=== PATIENT | female | born 1975 | race Caucasian/White ===

== ENCOUNTER 2018-06-08 21:48 | Inpatient (IN) | payer MEDICAID, OTHER ==
[~2018-06-08] VITALS: Ht 152.4 cm; Wt 57.3 kg
[~2018-06-08 21:48] MED LIST: ACET-818; IBUP-725
[2018-06-08 22:37] VITALS: Ht 152.4 cm; Wt 57.3 kg
[2018-06-08] MEDS ORDERED: CEFTRIAXONE 1 GM/50 ML (PMX) 50 ML IVPB STA (22:41)
[2018-06-08] MEDS ORDERED: SODIUM CHLORIDE 0.9% 1L BAG IV* STA (22:41)
[2018-06-08] MEDS ORDERED: ACETAMINOPHEN 325 MG TAB PO STA (22:41)
[2018-06-08] MEDS ORDERED: D10/0.45% NACL + KCL 30 MEQ 1,000 ML IV SCH (23:52)
[2018-06-08] MEDS ORDERED: D10/0.45% NACL + KCL 40 MEQ 1,000 ML IV SCH (23:52)
[2018-06-08] MEDS ORDERED: SOD CHLORIDE 0.9% 1,000 ML IV SCH (23:52)
[2018-06-08] MEDS ORDERED: DEXTROSE 10 %/0.45 % NACL 1,000 ML IV SCH (23:52)
[2018-06-08] MEDS ORDERED: NS + KCL 40 MEQ 1,000 ML IV SCH (23:52)
[2018-06-08] MEDS ORDERED: NS + KCL 30 MEQ 1,000 ML IV SCH (23:52)
[2018-06-09] MEDS ORDERED: LACTATED RINGER'S 500 ML IV ONE
[2018-06-09] MEDS ORDERED: INSULIN REGULAR, HUMAN 100 UNIT in SOD CHLORIDE 0.9% 100 ML IV SCH ×2
[2018-06-09] MEDS ORDERED: AZITHROMYCIN 500MG/NS (PMX) 250 ML IVPB ONE
--- NOTE | 2018-06-09 00:02 | ERD ---
ER Documentation Chief Complaint Chief Complaint C/O SOB, AP, BODY ACHES AND FEVER X3 DAYS HPI Patient is a 42-year-old female with asthma and diabetes who presents saying "I am all jacked up". The patient has left-sided flank pain and chills and fever. It started 3 days ago. Patient has no treatment yet. She has body wide aches and cough with productive phlegm. She has no urinary symptoms. She did not get a flu shot this year. She does not have a primary doctor. Upon review of old medical records this is the patient's third visit to the ER since 2011. ROS All systems reviewed and are negative except as per history of present illness. Medications Home Meds Reported Medications Ibuprofen (Motrin) 400 Mg Tablet 04/24/11 Acetaminophen-Codeine* (Tylenol No.3*) 1 Tab Tablet 04/24/11 Allergies Allergies: Coded Allergies: No Known Allergy (Unverified , 04/24/11) PMhx/Soc History of Surgery: Yes ( X 4) Anesthesia Reaction: No Hx Neurological Disorder: No Hx Respiratory Disorders: No Hx Cardiac Disorders: No Hx Psychiatric Problems: No Hx Miscellaneous Medical Probl: No Hx Alcohol Use: No Hx Substance Use: No Hx Tobacco Use: No Smoking Status: Never smoker FmHx Family History: diabetes Physical Exam Vitals Vital Signs Date Temp Pulse Resp B/P (MAP) Pulse Ox O2 O2 Flow FiO2 Time Delivery Rate 06/08/18 100.1 23:05 06/08/18 Nasal 22:43 Cannula 06/08/18 100.7 126 24 134/90 92 22:37 (105) Physical Exam Const: Moderate distress Head: Atraumatic Eyes: Normal Conjunctiva ENT: Poor dentition and dry mucous membranes Neck: Full range of motion. No meningismus. Resp: Decreased breath sounds bilaterally Cardio: Regular rate and rhythm, no murmurs Abd: Soft, non tender, non distended. Normal bowel sounds Skin: No petechiae or rashes Back: No midline or flank tenderness Ext: No cyanosis, or edema Neur: Awake and alert Psych: Normal Mood and Affect Result Diagram: 06/08/18225506/08/182255 Results 24 hrs Laboratory Tests Test 06/08/18 22:56 06/08/18 23:10 White Blood Count 14.9 10^3/ul Red Blood Count 4.99 10^6/ul Hemoglobin 13.6 g/dl Hematocrit 42.7 % Mean Corpuscular Volume 85.6 fl Mean Corpuscular Hemoglobin 27.3 pg Mean Corpuscular Hemoglobin Concent 31.9 g/dl Red Cell Distribution Width 14.7 % Platelet Count 204 10^3/UL Mean Platelet Volume 12.4 fl Immature Granulocytes % 0.400 % Neutrophils % % Segmented Neutrophils % (Manual) 71 % Band Neutrophils % (Manual) 21 % Lymphocytes % % Lymphocytes % (Manual) 4 % Reactive Lymphocytes % (Manual) 2 % Monocytes % % Monocytes % (Manual) 2 % Eosinophils % % Basophils % % Nucleated Red Blood Cells % 0.0 /100WBC Immature Granulocytes # 0.060 10^3/ul Neutrophils # 10^3/ul Neutrophils # (Manual) 11.0 10^3/ul Band Neutrophils # 3.1 10^3/ul Lymphocytes (Manual) 0.5 10^3/ul Lymphocytes # 10^3/ul Reactive Lymphocytes # 0.2 10^3/ul Monocytes # 10^3/ul Monocytes # (Manual) 0.2 10^3/ul Eosinophils # 10^3/ul Basophils # 10^3/ul Nucleated Red Blood Cells # 10^3/ul Platelet Estimate NORMAL Giant Platelets 2 % Prothrombin Time 16.3 Sec Prothrombin Time Ratio 1.3 INR International Normalized Ratio 1.30 Activated Partial Thromboplast Time 30.4 Sec Sodium Level 132 mmol/L Potassium Level 4.3 mmol/L Chloride Level 91 mmol/L Carbon Dioxide Level 18 mmol/L Anion Gap 23 Blood Urea Nitrogen 10 mg/dl Creatinine 0.53 mg/dl Est Glomerular Filtrat Rate mL/min > 60 mL/min Glucose Level 522 mg/dl Calcium Level 9.5 mg/dl Total Bilirubin 0.7 mg/dl Direct Bilirubin 0.00 mg/dl Indirect Bilirubin 0.7 mg/dl Aspartate Amino Transf (AST/SGOT) 16 IU/L Alanine Aminotransferase (ALT/SGPT) < 6 IU/L Alkaline Phosphatase 158 IU/L Troponin I < 0.012 ng/ml Total Protein 8.0 g/dl Albumin 3.9 g/dl Globulin 4.10 g/dl Albumin/Globulin Ratio 0.95 Urine Color YELLOW Urine Clarity SLIGHTLY CLOUDY Urine pH 6.0 Urine Specific [place] 1.019 Urine Ketones 1+ mg/dL Urine Nitrite NEGATIVE mg/dL Urine Bilirubin NEGATIVE mg/dL Urine Urobilinogen 1+ mg/dL Urine Leukocyte Esterase NEGATIVE Juan C/ul Urine Microscopic RBC 0 /HPF Urine Microscopic WBC 3 /HPF Urine Squamous Epithelial Cells MODERATE /HPF Urine Bacteria FEW /HPF Urine Hemoglobin NEGATIVE mg/dL Urine Glucose 2+ mg/dL Urine Total Protein NEGATIVE mg/dl Current Medications Medications Dose Sig/Yoselin Start Time Status Last (Trade) Ordered Route PRN Stop Time Admin Dose Reason Admin Sodium 1,510 ml BOLUS OVER 2 06/08/18 DC 06/08/18 Chloride HOURS STAT 22:41 23:06 (NS) IV* 06/08/18 22:42 650 mg ONCE STAT 06/08/18 DC 06/08/18 Acetaminophen PO 22:41 23:05 (Tylenol 06/08/18 22:42 Tab) Ceftriaxone 50 ml @ ONCE STAT 06/08/18 DC 06/08/18 Sodium 100 mls/hr IVPB 22:41 23:04 06/08/18 23:10 Azithromycin 250 ml @ ONCE ONCE 06/09/18 250 mls/hr IVPB 00:00 06/09/18 00:59 Potassium 1,000 ml @ Q0M IV 06/08/18 Chloride/Sodi 0 mls/hr 23:52 um Chloride Potassium 1,000 ml @ Q0M IV 06/08/18 Chloride/Dext 0 mls/hr 23:52 fernie/ Sod Cl Potassium 1,000 ml @ Q0M IV 06/08/18 Chloride/Sodi 0 mls/hr 23:52 um Chloride Potassium 1,000 ml @ Q0M IV 06/08/18 Chloride/Dext 0 mls/hr 23:52 fernie/ Sod Cl Sodium 1,000 ml @ Q0M IV 06/08/18 Chloride 0 mls/hr 23:52 1,000 ml @ Q0M IV 06/08/18 Dextrose/Sodi 0 mls/hr 23:52 um Chloride Insulin 101 ml @ ER DKA 06/09/18 Human 5.08 mls/hr PROTOCOL IV 00:00 Regular 100 unit/ Sodium Chloride Lactated 500 ml @ ONCE ONCE 06/09/18 Ringer's 500 mls/hr IV 00:00 06/09/18 00:59 HYPOGLYCEM 06/09/18 Miscellaneous HYPOGLYCEMIA PROTOCOL PRN 00:00 TREATMENT XX Information .HYPOGLYCEMIA (* PROTOCOL Miscellaneous Pharmacy Order) Dextrose 50 ml Q15M PRN 06/09/18 (D50w IV 00:00 Syringe) .DECREASED GLUCOSE Dextrose 25 ml Q15M PRN 06/09/18 (D50w IV 00:00 Syringe) .DECREASED GLUCOSE Procedures/MDM Chest X-ray 1V Interpreted by me: Soft Tissue: No acute abnormalities Bones: No acute abnormalities Mediastinum/Cardiac Silhouette/Lungs: Left upper lobe pneumonia EKG read by me: Rate/Rhythm: Sinus tachycardia rate of 117 Intervals: Normal Impression: Tachycardia without ischemia Smoking Cessation Therapy: Pt. was lectured for greater than 3 minutes on the health risks of continued smoking and the benefits of cessation. Sepsis Documentation: Patient's infectious symptoms have not stabilized and the patient is at risk of rapid decompensation. The patient will be admitted for careful hydration, antibiotic therapy, and infectious source control. SEVERE SEPSIS CRITERIA: Infectious source: Pneumonia End organ damage indicated by: Hyperglycemia with DKA SEPSIS MANAGEMENT Time of recognition of sepsis: 2255. Time of recognition of severe sepsis: 2255 Time of recognition of septic shock: No septic shock at this time. 3 HOUR BUNDLE Blood cultures x 2 before broad-spectrum antibiotics: Yes 30 ml/kg NS bolus completed Initial lactate pending Repeat lactate pending SEPTIC SHOCK ASSESSMENT: No lactic acid > 4.0 No persistent hypotension (SBP < 90 or 40 mmHg drop, MAP < 65) despite 30 mL/kg IV fluid bolus VOLUME REASSESSMENT FOR SEPTIC SHOCK: No septic shock at this time PERSISTENT HYPOTENSION TREATMENT: Comfort care no Central line not Required Vasopressor started not required I considered further perfusion assessment with CVP measurement, SCVO2, bedside ultrasound volume assessment, passive leg raise, trial of further fluid bolus. And proceeded with 30 ml/kg fluid bolus of NSS, broad spectrum antibiotics, and admission. The patient was found to have diabetic ketoacidosis with a sugar of 522 and a bicarb of 18 with an elevated anion gap of 23. The patient was fluid resuscitated with normal saline and was started on the DKA protocol. The patient will be admitted to the ICU to the care of Dr. Jackson. CRITICAL CARE Critical care time 45 minutes Emergent fluid management while maintaining close respiratory support. Provision of immediate and broad-spectrum antibiotic therapy. Simultaneous assessment for possible sources in order to direct targeted therapy. Consideration for invasive and chemical support to prevent cardiopulmonary collapse. Critical care time is independent of procedures performed. Departure Diagnosis: Primary Impression: Severe sepsis Additional Impressions: DKA (diabetic ketoacidoses) Diabetes mellitus type: type 1 Diabetes mellitus complication detail: without coma Qualified Codes: E10.10 - Type 1 diabetes mellitus with ketoacidosis without coma Pneumonia Pneumonia type: due to unspecified organism Laterality: left Lung location: upper lobe of lung Qualified Codes: J18.1 - Lobar pneumonia, unspecified organism Condition: Critical CORBIN DAY MD Jun 09, 2018 00:02
[2018-06-09] MEDS ORDERED: BISACODYL (EC) 5 MG TAB PO PRN (00:30)
[2018-06-09] MEDS ORDERED: ALBUTEROL 0.083% (NEB) 2.5 MG/3 ML AMP NEB PRN (00:30)
[2018-06-09] MEDS ORDERED: DOCUSATE SODIUM 100 MG CAP PO PRN (00:30)
[2018-06-09] MEDS: HYDROCODONE/APAP (5/325) TAB PO PRN ×3 (01:46→21:31)
[2018-06-09] MEDS: PANTOPRAZOLE (EC) 40 MG TAB PO SCH (05:50)
[2018-06-09] MEDS: HEPARIN 5,000 UNIT/1 ML VIAL SC SCH ×3 (05:50→21:34)
--- NOTE | 2018-06-09 06:15 | HP ---
Date/Time of Note Date/Time of Note DATE: 06/09/18 TIME: 06:06 Assessment/Plan VTE Prophylaxis SCD applied (from Nsg): Yes Pharmacological prophylaxis: NA/contraindicated Pharm contraindication: low risk/ambulating Lines/Catheters IV Catheter Type (from Nrsg): Peripheral IV Assessment/Plan Hospital Course This is a 42-year-old female being admitted to the ICU floor for: #1 DKA: Initiate DKA protocol with insulin drip, serial BMPs ABGs and CBCs. Monitor electrolytes. Potassium protocol. We will check hemoglobin A1c. Consider endocrinology consultation. #2 Severe sepsis: Secondary to underlying pneumonia and likely contributing factor to her TKA. Ceftriaxone and azithromycin at the current time. Cultures have been drawn. Trend lactic acid levels. Fluids as per #1. #3 community-acquired pneumonia: Ceftriaxone and azithromycin at the current time. Await culture results #4 Poorly controlled diabetes mellitus: Patient did present with blood sugars in the 500s. Will check a hemoglobin A1c once the DKA has been resolved we will need to optimize patient's home medication regimen. #5 asthma: PRN nebulizers as needed #6 homelessness: Social work consult #7 DVT GI prophylaxis: SCDs, Protonix Further treatment strategy will be implemented as per the clinical course Greater than 35 minutes critical care time was spent on the care and management this patient. Result Diagram: 06/09/18 0415 06/09/18 0508 Results 24hrs Laboratory Tests Test 06/08/18 22:56 06/08/18 23:10 06/08/18 23:35 06/08/18 23:47 White Blood 14.9 H Count Red Blood Count 4.99 Hemoglobin 13.6 Hematocrit 42.7 Mean Corpuscular 85.6 Volume Mean Corpuscular 27.3 L Hemoglobin Mean Corpuscular 31.9 L Hemoglobin Bia nt Red Cell 14.7 H Distribution Width Platelet Count 204 Mean Platelet 12.4 H Volume Immature 0.400 Granulocytes % Neutrophils % Segmented 71 Neutrophils % (Manual) Band Neutrophils 21 H % (Manual) Lymphocytes % Lymphocytes % 4 L (Manual) Reactive 2 H Lymphocytes % (Manual) Monocytes % Monocytes % 2 (Manual) Eosinophils % Basophils % Nucleated Red 0.0 Blood Cells % Immature 0.060 H Granulocytes # Neutrophils # Neutrophils # 11.0 H (Manual) Band Neutrophils 3.1 H # Lymphocytes 0.5 L (Manual) Lymphocytes # Reactive 0.2 H Lymphocytes # Monocytes # Monocytes # 0.2 L (Manual) Eosinophils # Basophils # Nucleated Red Blood Cells # Platelet NORMAL Estimate Giant Platelets 2 H Prothrombin Time 16.3 H Prothrombin Time 1.3 Ratio INR 1.30 International Normalized Ratio Activated 30.4 Partial Thrombop last Time Sodium Level 132 L Potassium Level 4.3 Chloride Level 91 L Carbon Dioxide 18 L Level Anion Gap 23 H Blood Urea 10 Nitrogen Creatinine 0.53 Est Glomerular > 60 Filtrat Rate mL/min Glucose Level 522 *H Calcium Level 9.5 Total Bilirubin 0.7 Direct Bilirubin 0.00 Indirect 0.7 Bilirubin Aspartate Amino 16 Transf (AST/SGOT ) Alanine < 6 L Aminotransferase (ALT/SGPT) Alkaline 158 H Phosphatase Troponin I < 0.012 Total Protein 8.0 Albumin 3.9 Globulin 4.10 H Albumin/Globulin 0.95 Ratio Urine Color YELLOW Urine Clarity CLEAR Urine pH 5.0 Urine Specific 1.028 [place] Urine Ketones 2+ H Urine Nitrite NEGATIVE Urine Bilirubin NEGATIVE Urine NEGATIVE Urobilinogen Urine Leukocyte NEGATIVE Esterase Urine 0 Microscopic RBC Urine 0 Microscopic WBC Urine Squamous FEW Epithelial Cells Urine Bacteria FEW A Urine Hemoglobin 1+ H Urine Glucose 3+ H Urine Total NEGATIVE Protein Lactic Acid 3.1 *H Level Blood Gas Blood venous Specimen Source Arterial Blood 06/09/2018 12:25 Date Drawn :25 AM Arterial Blood VENOUS LINE Gas Puncture Site Jerald Test ACCEPTAB Venous Blood pH 7.297 L Venous Blood 36.5 pCO2 (Temp Corrected) Venous Blood pO2 32.8 H (Temp Corrected) Venous Blood 17.4 L HCO3 Venous Blood 55.2 Oxygen Saturation Venous Blood -8.3 L Base Excess Venous Blood 12.0 Total Hemoglobin Venous Blood 54.9 Oxyhemoglobin Venous Blood 0.2 Methemoglobin Carboxyhemoglobi 0.4 n Blood Gas 37.0 Temperature Blood Gas NASAL CANNULA Modality FiO2 27.0 Blood Gas UP Notified Whom Blood Gas 06/09/2018 12:33 Notified Time :36 AM Test 06/09/18 00:53 06/09/18 01:07 06/09/18 01:10 06/09/18 01:52 Lactic Acid 2.0 Level Bedside Glucose 459 *H Sodium Level 133 L Potassium Level 4.0 Chloride Level 102 # Carbon Dioxide 17 L Level Anion Gap 14 #H Blood Urea 8 Nitrogen Creatinine 0.45 Est Glomerular > 60 Filtrat Rate mL/min Glucose Level 435 *H Hemoglobin A1c 13.2 H Calcium Level 8.3 L Phosphorus Level 2.6 Magnesium Level 1.7 Blood Gas Blood venous Specimen Source Arterial Blood 06/09/2018 2:10: Date Drawn 40 AM Arterial Blood VENOUS LINE Gas Puncture Site Jerald Test N/A Venous Blood pH 7.277 L Venous Blood 40.9 pCO2 (Temp Corrected) Venous Blood pO2 26.7 (Temp Corrected) Venous Blood 18.7 L HCO3 Venous Blood 41.4 L Oxygen Saturation Venous Blood -7.7 L Base Excess Venous Blood 12.4 Total Hemoglobin Venous Blood 41.2 Oxyhemoglobin Venous Blood 0.5 Methemoglobin Carboxyhemoglobi 0.1 n Blood Gas 37.0 Temperature Blood Gas NASAL CANNULA Modality FiO2 33.0 Blood Gas MA Notified Whom Blood Gas 06/09/2018 2:21: Notified Time 27 AM Test 06/09/18 02:14 06/09/18 02:48 06/09/18 03:10 06/09/18 03:11 Bedside Glucose 399 H 280 H Lactic Acid 2.3 *H Level Sodium Level 136 Potassium Level 3.9 Chloride Level 105 Carbon Dioxide 20 L Level Anion Gap 11 Blood Urea 8 Nitrogen Creatinine 0.47 Est Glomerular > 60 Filtrat Rate mL/min Glucose Level 298 #H Calcium Level 8.6 Phosphorus Level 1.9 L Magnesium Level 1.8 Test 06/09/18 03:52 06/09/18 04:10 06/09/18 04:15 06/09/18 05:08 Blood Gas Blood venous Specimen Source Arterial Blood 06/09/2018 3:25: Date Drawn 09 AM Arterial Blood VENOUS LINE Gas Puncture Site Jerald Test N/A Venous Blood pH 7.265 L Venous Blood 45.8 H pCO2 (Temp Corrected) Venous Blood pO2 18.9 L (Temp Corrected) Venous Blood 20.3 L HCO3 Venous Blood 24.7 L Oxygen Saturation Venous Blood -6.5 L Base Excess Venous Blood 11.6 Total Hemoglobin Venous Blood 24.2 Oxyhemoglobin Venous Blood 1.9 Methemoglobin Carboxyhemoglobi 0.3 n Blood Gas 37.0 Temperature Blood Gas NASAL CANNULA Modality FiO2 27.0 Blood Gas Notified Whom Blood Gas 06/09/2018 3:35: Notified Time 15 AM Bedside Glucose 275 H White Blood 11.6 #H Count Red Blood Count 4.21 Hemoglobin 11.5 L Hematocrit 35.8 L Mean Corpuscular 85.0 Volume Mean Corpuscular 27.3 L Hemoglobin Mean Corpuscular 32.1 Hemoglobin Bia nt Red Cell 14.6 H Distribution Width Platelet Count 185 Mean Platelet 11.9 H Volume Immature 0.300 Granulocytes % Neutrophils % Segmented 51 Neutrophils % (Manual) Band Neutrophils 28 H % (Manual) Lymphocytes % Lymphocytes % 16 (Manual) Monocytes % Monocytes % 5 (Manual) Eosinophils % Basophils % Nucleated Red 0.0 Blood Cells % Immature 0.030 Granulocytes # Neutrophils # Neutrophils # 6.3 (Manual) Band Neutrophils 3.2 H # Lymphocytes 1.8 (Manual) Lymphocytes # Monocytes # Monocytes # 0.5 (Manual) Eosinophils # Basophils # Nucleated Red Blood Cells # Platelet NORMAL Estimate Giant Platelets 1 H Polychromasia 2+ Poikilocytosis 2+ Anisocytosis 1+ Hemoglobin A1c 13.2 H Sodium Level 135 Potassium Level 3.6 Chloride Level 104 Carbon Dioxide 21 Level Anion Gap 10 Blood Urea 6 L Nitrogen Creatinine 0.38 L Est Glomerular > 60 Filtrat Rate mL/min Glucose Level 290 H Calcium Level 8.5 Test 06/09/18 05:12 Bedside Glucose 284 H HPI/ROS Admit Date/Time Admit Date/Time Hx of Present Illness Chief complaint: Generalized body pain and left flank pain and fever times 3 days This is a 42-year-old female with asthma and diabetes who presented to the emergency department with reports of body aches and cough times 3 days. Patient reports that she started experiencing body aches and cough along with a fever and chills for 3 days. She also had episodes of diarrhea. She reports she had productive phlegm as well. She was not able to get the flu shot this year. She is homeless. She is only on metformin at the current time for her diabetes. Allergies: NKDA Medications: Metformin ROS Const: As per HPI Eyes : No pain discharge or redness or change in visual acuity ENT: No pain, sore throat, congestion, congestion, dysphagia or discharge Respiratory: As per HPI Cardiovascular: No chest pain, palpitation, PND, or edema GI : As per HPI Genitourinary: No dysuria, hematuria, flank pain , discharge or CVA tenderness Musculoskeletal: No joint pain, back pain, neck pain, restricted range of motion in neck or joints Skin: No rash, bruising or hives Neuro: No headache, dizziness, syncope, seizure, focal weakness Endocrine: No polyuria, polydipsia, temperature intolerance Psych: No hallucination, depression, anxiety or suicidal ideation PMH/Family/Social Past Medical History Asthma, diabetes mellitus Medications Current Medications Potassium Chloride/Sodium Chloride 1,000 ml @ 0 mls/hr Q0M IV ; Start 06/08/18 at 23:52 Potassium Chloride/Dextrose/ Sod Cl 1,000 ml @ 0 mls/hr Q0M IV ; Start 06/08/18 at 23:52 Potassium Chloride/Sodium Chloride 1,000 ml @ 0 mls/hr Q0M IV Last administered on 06/09/18at 01:22; Admin Dose 250 MLS/HR; Start 06/08/18 at 23:52 Potassium Chloride/Dextrose/ Sod Cl 1,000 ml @ 0 mls/hr Q0M IV Last administered on 06/09/18at 03:18; Admin Dose 150 MLS/HR; Start 06/08/18 at 23:52 Sodium Chloride 1,000 ml @ 0 mls/hr Q0M IV ; Start 06/08/18 at 23:52 Dextrose/Sodium Chloride 1,000 ml @ 0 mls/hr Q0M IV ; Start 06/08/18 at 23:52 Insulin Human Regular 100 unit/ Sodium Chloride 101 ml @ 5.08 mls/hr ER DKA PROTOCOL IV Last administered on 06/09/18at 01:23; Admin Dose 5.08 MLS/HR; Start 06/09/18 at 00:00 Miscellaneous Information (* Miscellaneous Pharmacy Order) HYPOGLYCEMIA TREATMENT HYPOGLYCEM PROTOCOL PRN XX .HYPOGLYCEMIA PROTOCOL; Start 06/09/18 at 00:00 Dextrose (D50w Syringe) 50 ml Q15M PRN IV .DECREASED GLUCOSE; Start 06/09/18 at 00:00 Dextrose (D50w Syringe) 25 ml Q15M PRN IV .DECREASED GLUCOSE; Start 06/09/18 at 00:00 Ondansetron HCl (Zofran Inj) 4 mg Q6H PRN IV NAUSEA AND/OR VOMITING; Start 06/09/18 at 00:30 Albuterol (Proventil 0.083% (Neb)) 2.5 mg Q2H RESP THERAPY PRN NEB SHORTNESS OF BREATH; Start 06/09/18 at 00:30 Ipratropium [place] (Atrovent 0.02% (Neb)) 0.5 mg Q2H RESP THERAPY PRN NEB SHORTNESS OF BREATH; Start 06/09/18 at 00:30 Acetaminophen (Tylenol Liquid) 650 mg Q6H PRN PO PAIN LEVEL 1-3 OR FEVER; Start 06/09/18 at 00:30 Acetaminophen/ Hydrocodone Bitart ([place] (5/325)) 1 tab Q6H PRN PO PAIN LEVEL 4-6 Last administered on 06/09/18at 01:46; Admin Dose 1 TAB; Start 06/09/18 at 00:30 Docusate Sodium (Colace) 100 mg Q12H PRN PO CONSTIPATION; Start 06/09/18 at 00:30 Bisacodyl (Dulcolax) 5 mg DAILY PRN PO CONSTIPATION; Start 06/09/18 at 00:30 Pantoprazole (Protonix Tab) 40 mg DAILY@06 PO Last administered on 06/09/18at 05 :50; Admin Dose 40 MG; Start 06/09/18 at 06:00 Heparin Sodium (Porcine) (Heparin (5000 Units/1ml)) 5,000 unit Q8 SC Last administered on 06/09/18at 05:50; Admin Dose 5,000 UNIT; Start 06/09/18 at 06:00 Ceftriaxone Sodium 50 ml @ 100 mls/hr Q24H IVPB ; Start 06/09/18 at 20:00 Azithromycin 250 ml @ 250 mls/hr Q24H IVPB ; Start 06/09/18 at 20:00 Coded Allergies: No Known Allergy (Unverified , 04/24/11) Past Surgical History x4, mandible fracture surgery Social History Homeless Smoking Status: Current every day smoker Drug Use: none Exam/Review of Systems Vital Signs Vitals Vital Signs Date Temp Pulse Resp B/P (MAP) Pulse Ox O2 O2 Flow FiO2 Time Delivery Rate 06/09/18 122 23 118/84 98 Nasal 3.0 05:10 (95) Cannula 06/09/18 99.6 03:10 Intake and Output 06/08/18 06/08/18 06/09/18 1515:00 23:00 07:00 IntakeIntake Total 2300 ml BalanceBalance 2300 ml Exam Exam General: Patient appears disheveled, dehydrated HEENT: Atraumatic, normocephalic. The pupils are equal, round and reactive. Extraocular motor are intact, mucous membranes dry Neck: Supple with full range of motion. No rigidity or meningismus Chest: Nontender Lungs: Clear to auscultation bilaterally no crackles rales or wheezing Heart: Sinus tachycardia Abdomen: Soft , nontender, nondistended , bowel sounds are present. No guarding no rebound tenderness , No masses or organomegaly. No costovertebral temporal angle mass Extremities: Normal to inspection, no edema no cyanosis Neurologic: Normal mental status, speech normal, cranial nerves II through XII are intact, motor and sensory are intact, Additional Comments PROCEDURE: CHEST - 1 VIEW CLINICAL INDICATION: 42-year-old female with shortness of breath and sepsis. TECHNIQUE: A single frontal AP upright portable view of the chest was performed. The images were reviewed on a PACS workstation. COMPARISON: None. FINDINGS: The cardiomediastinal silhouette is within normal limits. There are diffuse bilateral infiltrates with more focal consolidation within the right lower, left upper and left lower lung zones. There is no evidence for congestive heart failure. There is no evidence for pneumothorax. The stomach is distended with gas within the left upper quadrant. The osseous structures are intact. IMPRESSION: Diffuse bilateral infiltrates with more focal consolidation within the right lower, left upper and left lower lung zones. .Haseeb Tellez MD, MD Date Time Electronically viewed and signed by .Haseeb Tellez MD, MD on 06/09/2018 01:47 .M/ CC: CORBIN DAY MD [id number] EKG read by me: Rate/Rhythm: Sinus tachycardia rate of 117 Intervals: Normal Impression: Tachycardia without ischemia PEPE GASTON Jun 09, 2018 06:15
[2018-06-09] MEDS: ACETAMINOPHEN 650MG/20.3ML CUP PO PRN ×2 (06:39→15:19)
[2018-06-09] MEDS ORDERED: INSULIN GLARGINE [LANTus] (100 UNITS/ML) SYG SC SCH (08:00)
--- NOTE | 2018-06-09 13:00 | PN ---
Date/Time of Note Date/Time of Note DATE: 06/09/18 TIME: 12:59 Assessment/Plan VTE Prophylaxis SCD applied (from Nsg): Yes Pharmacological prophylaxis: NA/contraindicated Pharm contraindication: other Lines/Catheters IV Catheter Type (from Nrsg): Peripheral IV Assessment/Plan Hospital Course #1 DKA: DKA protocol with insulin drip, serial BMPs ABGs and CBCs. Monitor electrolytes. Potassium protocol. We will check hemoglobin A1c. #2 Severe sepsis: Secondary to underlying pneumonia and likely contributing factor to her DKA. Ceftriaxone and azithromycin at the current time. Cultures have been drawn. Trend lactic acid levels. Fluids as per #1. #3 community-acquired pneumonia: Ceftriaxone and azithromycin at the current time. Await culture results #4 Poorly controlled diabetes mellitus: Patient did present with blood sugars in the 500s. Will check a hemoglobin A1c once the DKA has been resolved we will need to optimize patient's home medication regimen. #5 asthma: PRN nebulizers as needed #6 homelessness: Social work consult #7 DVT GI prophylaxis: SCDs, Protonix Result Diagram: 06/09/18 0415 06/09/18 0836 Results 24hrs Laboratory Tests Test 06/08/18 22:56 06/08/18 23:10 06/08/18 23:35 06/08/18 23:47 White Blood 14.9 H Count Red Blood Count 4.99 Hemoglobin 13.6 Hematocrit 42.7 Mean Corpuscular 85.6 Volume Mean Corpuscular 27.3 L Hemoglobin Mean Corpuscular 31.9 L Hemoglobin Bia nt Red Cell 14.7 H Distribution Width Platelet Count 204 Mean Platelet 12.4 H Volume Immature 0.400 Granulocytes % Neutrophils % Segmented 71 Neutrophils % (Manual) Band Neutrophils 21 H % (Manual) Lymphocytes % Lymphocytes % 4 L (Manual) Reactive 2 H Lymphocytes % (Manual) Monocytes % Monocytes % 2 (Manual) Eosinophils % Basophils % Nucleated Red 0.0 Blood Cells % Immature 0.060 H Granulocytes # Neutrophils # Neutrophils # 11.0 H (Manual) Band Neutrophils 3.1 H # Lymphocytes 0.5 L (Manual) Lymphocytes # Reactive 0.2 H Lymphocytes # Monocytes # Monocytes # 0.2 L (Manual) Eosinophils # Basophils # Nucleated Red Blood Cells # Platelet NORMAL Estimate Giant Platelets 2 H Prothrombin Time 16.3 H Prothrombin Time 1.3 Ratio INR 1.30 International Normalized Ratio Activated 30.4 Partial Thrombop last Time Sodium Level 132 L Potassium Level 4.3 Chloride Level 91 L Carbon Dioxide 18 L Level Anion Gap 23 H Blood Urea 10 Nitrogen Creatinine 0.53 Est Glomerular > 60 Filtrat Rate mL/min Glucose Level 522 *H Calcium Level 9.5 Total Bilirubin 0.7 Direct Bilirubin 0.00 Indirect 0.7 Bilirubin Aspartate Amino 16 Transf (AST/SGOT ) Alanine < 6 L Aminotransferase (ALT/SGPT) Alkaline 158 H Phosphatase Troponin I < 0.012 Total Protein 8.0 Albumin 3.9 Globulin 4.10 H Albumin/Globulin 0.95 Ratio Urine Color YELLOW Urine Clarity CLEAR Urine pH 5.0 Urine Specific 1.028 [place] Urine Ketones 2+ H Urine Nitrite NEGATIVE Urine Bilirubin NEGATIVE Urine NEGATIVE Urobilinogen Urine Leukocyte NEGATIVE Esterase Urine 0 Microscopic RBC Urine 0 Microscopic WBC Urine Squamous FEW Epithelial Cells Urine Bacteria FEW A Urine Hemoglobin 1+ H Urine Glucose 3+ H Urine Total NEGATIVE Protein Lactic Acid 3.1 *H Level Blood Gas Blood venous Specimen Source Arterial Blood 06/09/2018 12:25 Date Drawn :25 AM Arterial Blood VENOUS LINE Gas Puncture Site Jerald Test ACCEPTAB Venous Blood pH 7.297 L Venous Blood 36.5 pCO2 (Temp Corrected) Venous Blood pO2 32.8 H (Temp Corrected) Venous Blood 17.4 L HCO3 Venous Blood 55.2 Oxygen Saturation Venous Blood -8.3 L Base Excess Venous Blood 12.0 Total Hemoglobin Venous Blood 54.9 Oxyhemoglobin Venous Blood 0.2 Methemoglobin Carboxyhemoglobi 0.4 n Blood Gas 37.0 Temperature Blood Gas NASAL CANNULA Modality FiO2 27.0 Blood Gas UP Notified Whom Blood Gas 06/09/2018 12:33 Notified Time :36 AM Test 06/09/18 00:53 06/09/18 01:07 06/09/18 01:10 06/09/18 01:52 Lactic Acid 2.0 Level Bedside Glucose 459 *H Sodium Level 133 L Potassium Level 4.0 Chloride Level 102 # Carbon Dioxide 17 L Level Anion Gap 14 #H Blood Urea 8 Nitrogen Creatinine 0.45 Est Glomerular > 60 Filtrat Rate mL/min Glucose Level 435 *H Hemoglobin A1c 13.2 H Calcium Level 8.3 L Phosphorus Level 2.6 Magnesium Level 1.7 Blood Gas Blood venous Specimen Source Arterial Blood 06/09/2018 2:10: Date Drawn 40 AM Arterial Blood VENOUS LINE Gas Puncture Site Jerald Test N/A Venous Blood pH 7.277 L Venous Blood 40.9 pCO2 (Temp Corrected) Venous Blood pO2 26.7 (Temp Corrected) Venous Blood 18.7 L HCO3 Venous Blood 41.4 L Oxygen Saturation Venous Blood -7.7 L Base Excess Venous Blood 12.4 Total Hemoglobin Venous Blood 41.2 Oxyhemoglobin Venous Blood 0.5 Methemoglobin Carboxyhemoglobi 0.1 n Blood Gas 37.0 Temperature Blood Gas NASAL CANNULA Modality FiO2 33.0 Blood Gas [place] Notified Whom Blood Gas 06/09/2018 2:21: Notified Time 27 AM Test 06/09/18 02:14 06/09/18 02:48 06/09/18 03:10 06/09/18 03:11 Bedside Glucose 399 H 280 H Lactic Acid 2.3 *H Level Sodium Level 136 Potassium Level 3.9 Chloride Level 105 Carbon Dioxide 20 L Level Anion Gap 11 Blood Urea 8 Nitrogen Creatinine 0.47 Est Glomerular > 60 Filtrat Rate mL/min Glucose Level 298 #H Calcium Level 8.6 Phosphorus Level 1.9 L Magnesium Level 1.8 Test 06/09/18 03:52 06/09/18 04:10 06/09/18 04:15 06/09/18 04:59 Blood Gas Blood venous Specimen Source Arterial Blood 06/09/2018 3:25: Date Drawn 09 AM Arterial Blood VENOUS LINE Gas Puncture Site Jerald Test N/A Venous Blood pH 7.265 L Venous Blood 45.8 H pCO2 (Temp Corrected) Venous Blood pO2 18.9 L (Temp Corrected) Venous Blood 20.3 L HCO3 Venous Blood 24.7 L Oxygen Saturation Venous Blood -6.5 L Base Excess Venous Blood 11.6 Total Hemoglobin Venous Blood 24.2 Oxyhemoglobin Venous Blood 1.9 Methemoglobin Carboxyhemoglobi 0.3 n Blood Gas 37.0 Temperature Blood Gas NASAL CANNULA Modality FiO2 27.0 Blood Gas Notified Whom Blood Gas 06/09/2018 3:35: Notified Time 15 AM Bedside Glucose 275 H White Blood 11.6 #H Count Red Blood Count 4.21 Hemoglobin 11.5 L Hematocrit 35.8 L Mean Corpuscular 85.0 Volume Mean Corpuscular 27.3 L Hemoglobin Mean Corpuscular 32.1 Hemoglobin Bia nt Red Cell 14.6 H Distribution Width Platelet Count 185 Mean Platelet 11.9 H Volume Immature 0.300 Granulocytes % Neutrophils % Segmented 51 Neutrophils % (Manual) Band Neutrophils 28 H % (Manual) Lymphocytes % Lymphocytes % 16 (Manual) Monocytes % Monocytes % 5 (Manual) Eosinophils % Basophils % Nucleated Red 0.0 Blood Cells % Immature 0.030 Granulocytes # Neutrophils # Neutrophils # 6.3 (Manual) Band Neutrophils 3.2 H # Lymphocytes 1.8 (Manual) Lymphocytes # Monocytes # Monocytes # 0.5 (Manual) Eosinophils # Basophils # Nucleated Red Blood Cells # Platelet NORMAL Estimate Giant Platelets 1 H Polychromasia 2+ Poikilocytosis 2+ Anisocytosis 1+ Hemoglobin A1c 13.2 H Urine Opiates Negative Screen Urine Negative Barbiturates Urine Negative Amphetamines Screen Urine Negative Benzodiazepines Screen Urine Cocaine Negative Screen Urine Negative Cannabinoids Test 06/09/18 05:08 06/09/18 05:12 06/09/18 06:09 06/09/18 07:11 Sodium Level 135 Potassium Level 3.6 Chloride Level 104 Carbon Dioxide 21 Level Anion Gap 10 Blood Urea 6 L Nitrogen Creatinine 0.38 L Est Glomerular > 60 Filtrat Rate mL/min Glucose Level 290 H Calcium Level 8.5 Bedside Glucose 284 H 308 H 266 H Test 06/09/18 08:20 06/09/18 08:36 06/09/18 09:17 06/09/18 10:24 Bedside Glucose 260 H 207 229 H Sodium Level 136 Potassium Level 3.7 Chloride Level 105 Carbon Dioxide 21 Level Anion Gap 10 Blood Urea 4 L Nitrogen Creatinine 0.30 L Est Glomerular > 60 Filtrat Rate mL/min Glucose Level 266 H Calcium Level 8.4 Phosphorus Level 0.9 #L Magnesium Level 1.7 Test 06/09/18 11:21 06/09/18 12:31 Bedside Glucose 155 188 Subjective 24 Hr Interval Summary Constitutional: no complaints Exam/Review of Systems Exam Vitals Vital Signs Date Temp Pulse Resp B/P (MAP) Pulse Ox O2 O2 Flow FiO2 Time Delivery Rate 06/09/18 99.6 114 19 133/88 3 Nasal 12:19 (103) Cannula 06/09/18 3.0 10:30 Intake and Output 06/08/18 06/08/18 06/09/18 1515:00 23:00 07:00 IntakeIntake Total 2300 ml BalanceBalance 2300 ml Constitutional: alert, oriented Respiratory: clear to auscultation Cardiovascular: regular rate and rhythm Gastrointestinal: soft; No distended Musculoskeletal: nl extremities to inspection Results Results 24hrs Laboratory Tests Test 06/08/18 22:56 06/08/18 23:10 06/08/18 23:35 06/08/18 23:47 White Blood 14.9 H Count Red Blood Count 4.99 Hemoglobin 13.6 Hematocrit 42.7 Mean Corpuscular 85.6 Volume Mean Corpuscular 27.3 L Hemoglobin Mean Corpuscular 31.9 L Hemoglobin Bia nt Red Cell 14.7 H Distribution Width Platelet Count 204 Mean Platelet 12.4 H Volume Immature 0.400 Granulocytes % Neutrophils % Segmented 71 Neutrophils % (Manual) Band Neutrophils 21 H % (Manual) Lymphocytes % Lymphocytes % 4 L (Manual) Reactive 2 H Lymphocytes % (Manual) Monocytes % Monocytes % 2 (Manual) Eosinophils % Basophils % Nucleated Red 0.0 Blood Cells % Immature 0.060 H Granulocytes # Neutrophils # Neutrophils # 11.0 H (Manual) Band Neutrophils 3.1 H # Lymphocytes 0.5 L (Manual) Lymphocytes # Reactive 0.2 H Lymphocytes # Monocytes # Monocytes # 0.2 L (Manual) Eosinophils # Basophils # Nucleated Red Blood Cells # Platelet NORMAL Estimate Giant Platelets 2 H Prothrombin Time 16.3 H Prothrombin Time 1.3 Ratio INR 1.30 International Normalized Ratio Activated 30.4 Partial Thrombop last Time Sodium Level 132 L Potassium Level 4.3 Chloride Level 91 L Carbon Dioxide 18 L Level Anion Gap 23 H Blood Urea 10 Nitrogen Creatinine 0.53 Est Glomerular > 60 Filtrat Rate mL/min Glucose Level 522 *H Calcium Level 9.5 Total Bilirubin 0.7 Direct Bilirubin 0.00 Indirect 0.7 Bilirubin Aspartate Amino 16 Transf (AST/SGOT ) Alanine < 6 L Aminotransferase (ALT/SGPT) Alkaline 158 H Phosphatase Troponin I < 0.012 Total Protein 8.0 Albumin 3.9 Globulin 4.10 H Albumin/Globulin 0.95 Ratio Urine Color YELLOW Urine Clarity CLEAR Urine pH 5.0 Urine Specific 1.028 [place] Urine Ketones 2+ H Urine Nitrite NEGATIVE Urine Bilirubin NEGATIVE Urine NEGATIVE Urobilinogen Urine Leukocyte NEGATIVE Esterase Urine 0 Microscopic RBC Urine 0 Microscopic WBC Urine Squamous FEW Epithelial Cells Urine Bacteria FEW A Urine Hemoglobin 1+ H Urine Glucose 3+ H Urine Total NEGATIVE Protein Lactic Acid 3.1 *H Level Blood Gas Blood venous Specimen Source Arterial Blood 06/09/2018 12:25 Date Drawn :25 AM Arterial Blood VENOUS LINE Gas Puncture Site Jerald Test ACCEPTAB Venous Blood pH 7.297 L Venous Blood 36.5 pCO2 (Temp Corrected) Venous Blood pO2 32.8 H (Temp Corrected) Venous Blood 17.4 L HCO3 Venous Blood 55.2 Oxygen Saturation Venous Blood -8.3 L Base Excess Venous Blood 12.0 Total Hemoglobin Venous Blood 54.9 Oxyhemoglobin Venous Blood 0.2 Methemoglobin Carboxyhemoglobi 0.4 n Blood Gas 37.0 Temperature Blood Gas NASAL CANNULA Modality FiO2 27.0 Blood Gas Notified Whom Blood Gas 06/09/2018 12:33 Notified Time :36 AM Test 06/09/18 00:53 06/09/18 01:07 06/09/18 01:10 06/09/18 01:52 Lactic Acid 2.0 Level Bedside Glucose 459 *H Sodium Level 133 L Potassium Level 4.0 Chloride Level 102 # Carbon Dioxide 17 L Level Anion Gap 14 #H Blood Urea 8 Nitrogen Creatinine 0.45 Est Glomerular > 60 Filtrat Rate mL/min Glucose Level 435 *H Hemoglobin A1c 13.2 H Calcium Level 8.3 L Phosphorus Level 2.6 Magnesium Level 1.7 Blood Gas Blood venous Specimen Source Arterial Blood 06/09/2018 2:10: Date Drawn 40 AM Arterial Blood VENOUS LINE Gas Puncture Site Jerald Test N/A Venous Blood pH 7.277 L Venous Blood 40.9 pCO2 (Temp Corrected) Venous Blood pO2 26.7 (Temp Corrected) Venous Blood 18.7 L HCO3 Venous Blood 41.4 L Oxygen Saturation Venous Blood -7.7 L Base Excess Venous Blood 12.4 Total Hemoglobin Venous Blood 41.2 Oxyhemoglobin Venous Blood 0.5 Methemoglobin Carboxyhemoglobi 0.1 n Blood Gas 37.0 Temperature Blood Gas NASAL CANNULA Modality FiO2 33.0 Blood Gas [place] Notified Whom Blood Gas 06/09/2018 2:21: Notified Time 27 AM Test 06/09/18 02:14 06/09/18 02:48 06/09/18 03:10 06/09/18 03:11 Bedside Glucose 399 H 280 H Lactic Acid 2.3 *H Level Sodium Level 136 Potassium Level 3.9 Chloride Level 105 Carbon Dioxide 20 L Level Anion Gap 11 Blood Urea 8 Nitrogen Creatinine 0.47 Est Glomerular > 60 Filtrat Rate mL/min Glucose Level 298 #H Calcium Level 8.6 Phosphorus Level 1.9 L Magnesium Level 1.8 Test 06/09/18 03:52 06/09/18 04:10 06/09/18 04:15 06/09/18 04:59 Blood Gas Blood venous Specimen Source Arterial Blood 06/09/2018 3:25: Date Drawn 09 AM Arterial Blood VENOUS LINE Gas Puncture Site Jerald Test N/A Venous Blood pH 7.265 L Venous Blood 45.8 H pCO2 (Temp Corrected) Venous Blood pO2 18.9 L (Temp Corrected) Venous Blood 20.3 L HCO3 Venous Blood 24.7 L Oxygen Saturation Venous Blood -6.5 L Base Excess Venous Blood 11.6 Total Hemoglobin Venous Blood 24.2 Oxyhemoglobin Venous Blood 1.9 Methemoglobin Carboxyhemoglobi 0.3 n Blood Gas 37.0 Temperature Blood Gas NASAL CANNULA Modality FiO2 27.0 Blood Gas UP Notified Whom Blood Gas 06/09/2018 3:35: Notified Time 15 AM Bedside Glucose 275 H White Blood 11.6 #H Count Red Blood Count 4.21 Hemoglobin 11.5 L Hematocrit 35.8 L Mean Corpuscular 85.0 Volume Mean Corpuscular 27.3 L Hemoglobin Mean Corpuscular 32.1 Hemoglobin Bia nt Red Cell 14.6 H Distribution Width Platelet Count 185 Mean Platelet 11.9 H Volume Immature 0.300 Granulocytes % Neutrophils % Segmented 51 Neutrophils % (Manual) Band Neutrophils 28 H % (Manual) Lymphocytes % Lymphocytes % 16 (Manual) Monocytes % Monocytes % 5 (Manual) Eosinophils % Basophils % Nucleated Red 0.0 Blood Cells % Immature 0.030 Granulocytes # Neutrophils # Neutrophils # 6.3 (Manual) Band Neutrophils 3.2 H # Lymphocytes 1.8 (Manual) Lymphocytes # Monocytes # Monocytes # 0.5 (Manual) Eosinophils # Basophils # Nucleated Red Blood Cells # Platelet NORMAL Estimate Giant Platelets 1 H Polychromasia 2+ Poikilocytosis 2+ Anisocytosis 1+ Hemoglobin A1c 13.2 H Urine Opiates Negative Screen Urine Negative Barbiturates Urine Negative Amphetamines Screen Urine Negative Benzodiazepines Screen Urine Cocaine Negative Screen Urine Negative Cannabinoids Test 06/09/18 05:08 06/09/18 05:12 06/09/18 06:09 06/09/18 07:11 Sodium Level 135 Potassium Level 3.6 Chloride Level 104 Carbon Dioxide 21 Level Anion Gap 10 Blood Urea 6 L Nitrogen Creatinine 0.38 L Est Glomerular > 60 Filtrat Rate mL/min Glucose Level 290 H Calcium Level 8.5 Bedside Glucose 284 H 308 H 266 H Test 06/09/18 08:20 06/09/18 08:36 06/09/18 09:17 06/09/18 10:24 Bedside Glucose 260 H 207 229 H Sodium Level 136 Potassium Level 3.7 Chloride Level 105 Carbon Dioxide 21 Level Anion Gap 10 Blood Urea 4 L Nitrogen Creatinine 0.30 L Est Glomerular > 60 Filtrat Rate mL/min Glucose Level 266 H Calcium Level 8.4 Phosphorus Level 0.9 #L Magnesium Level 1.7 Test 06/09/18 11:21 06/09/18 12:31 Bedside Glucose 155 188 Medications Medication Current Medications Potassium Chloride/Sodium Chloride 1,000 ml @ 0 mls/hr Q0M IV ; Start 06/08/18 at 23:52 Potassium Chloride/Dextrose/ Sod Cl 1,000 ml @ 0 mls/hr Q0M IV ; Start 06/08/18 at 23:52 Potassium Chloride/Sodium Chloride 1,000 ml @ 0 mls/hr Q0M IV Last a dministered on 06/09/18at 01:22; Admin Dose 250 MLS/HR; Start 06/08/18 at 23:52 Potassium Chloride/Dextrose/ Sod Cl 1,000 ml @ 0 mls/hr Q0M IV Last administered on 06/09/18at 03:18; Admin Dose 150 MLS/HR; Start 06/08/18 at 23:52 Sodium Chloride 1,000 ml @ 0 mls/hr Q0M IV ; Start 06/08/18 at 23:52 Dextrose/Sodium Chloride 1,000 ml @ 0 mls/hr Q0M IV ; Start 06/08/18 at 23:52 Insulin Human Regular 100 unit/ Sodium Chloride 101 ml @ 5.08 mls/hr ER DKA PROTOCOL IV Last administered on 06/09/18at 01:23; Admin Dose 5.08 MLS/HR; Start 06/09/18 at 00:00 Miscellaneous Information (* Miscellaneous Pharmacy Order) HYPOGLYCEMIA TREATMENT HYPOGLYCEM PROTOCOL PRN XX .HYPOGLYCEMIA PROTOCOL; Start 06/09/18 at 00:00 Dextrose (D50w Syringe) 50 ml Q15M PRN IV .DECREASED GLUCOSE; Start 06/09/18 at 00:00 Dextrose (D50w Syringe) 25 ml Q15M PRN IV .DECREASED GLUCOSE; Start 06/09/18 at 00:00 Ondansetron HCl (Zofran Inj) 4 mg Q6H PRN IV NAUSEA AND/OR VOMITING; Start 06/09/18 at 00:30 Albuterol (Proventil 0.083% (Neb)) 2.5 mg Q2H RESP THERAPY PRN NEB SHORTNESS OF BREATH; Start 06/09/18 at 00:30 Ipratropium [place] (Atrovent 0.02% (Neb)) 0.5 mg Q2H RESP THERAPY PRN NEB SHORTNESS OF BREATH; Start 06/09/18 at 00:30 Acetaminophen (Tylenol Liquid) 650 mg Q6H PRN PO PAIN LEVEL 1-3 OR FEVER Last administered on 06/09/18at 06:39; Admin Dose 650 MG; Start 06/09/18 at 00:30 Acetaminophen/ Hydrocodone Bitart (Cashion (5/325)) 1 tab Q6H PRN PO PAIN LEVEL 4-6 Last administered on 06/09/18at 01:46; Admin Dose 1 TAB; Start 06/09/18 at 00:30 Docusate Sodium (Colace) 100 mg Q12H PRN PO CONSTIPATION; Start 06/09/18 at 00:30 Bisacodyl (Dulcolax) 5 mg DAILY PRN PO CONSTIPATION; Start 06/09/18 at 00:30 Pantoprazole (Protonix Tab) 40 mg DAILY@06 PO Last administered on 06/09/18at 05:50; Admin Dose 40 MG; Start 06/09/18 at 06:00 Heparin Sodium (Porcine) (Heparin (5000 Units/1ml)) 5,000 unit Q8 SC Last administered on 06/09/18at 05:50; Admin Dose 5,000 UNIT; Start 06/09/18 at 06:00 Ceftriaxone Sodium 50 ml @ 100 mls/hr Q24H IVPB ; Start 06/09/18 at 20:00 Azithromycin 250 ml @ 250 mls/hr Q24H IVPB ; Start 06/09/18 at 20:00 Insulin Glargine (Lantus) 10 units DAILY@0800 SC Last administered on 06/09/18 08:24; Admin Dose 10 UNITS; Start 06/09/18 at 08:00 EYAL HAHN Jun 09, 2018 13:00
[2018-06-09] MEDS ORDERED: MAGNESIUM OXIDE 400 MG TAB PO ONE (14:00)
[2018-06-09 14:22] VITALS: BP 128/80; PULSE 131; RESP 19
[2018-06-09] MEDS ORDERED: DEXTROSE 50% 50 ML SYRINGE IV PRN ×3 (14:30)
[2018-06-09] MEDS ORDERED: GLUCAGON 1 MG INJ IM PRN (14:30)
[2018-06-09] MEDS ORDERED: GLUCOSE GEL 15 GRAM TUBE BUCCAL PRN (14:30)
[2018-06-09] MEDS ORDERED: GLUCOSE GEL 15 GRAM TUBE PO PRN ×2 (14:30)
--- NOTE | 2018-06-09 15:14 | CONS ---
Assessment/Plan Assessment/Plan Hospital Course (Demo Recall) 48 y/o F with type 2 DM diagnosed about 5 years ago presented to the ED with body aches, fever and productive cough for the past 3 days. Workup here showed fever, tachycardia and imaging showed multiple areas of consolidation in different lobes of the lung. She had elevated anion gap with low pH and elevated lactic acid and required short course of IV insulin infusion; her elevated anion gap could be secondary to lactic acidosis. Endocrine consulted for management of hyperglycemia. Type 2 DM -uncontrolled, A1c of 13.2 -s/p 10 units of lantus this morning -agree with lantus 15 units sc once daily with 4 units of novolog with each meal plus mild dose correction scale with meals and HS -check FS AC and HS -will follow with you and adjust regimen accordingly -discharge medications will depend upon disposition plan (d/c to street vs fdc vs home?) Consultation Date/Type/Reason Admit Date/Time Date/Time of Note DATE: 06/09/18 TIME: 15:13 Hx of Present Illness 48 y/o F with type 2 DM diagnosed about 5 years ago presented to the ED with body aches, fever and productive cough for the past 3 days. Workup here showed fever, tachycardia and imaging showed multiple areas of consolidation in different lobes of the lung. She had elevated anion gap with low pH and elevated lactic acid and required short course of IV insulin infusion; her elevated anion gap could be secondary to lactic acidosis. Endocrine consulted for management of hyperglycemia. Her anion gap is now normal and FS readings have trended down. She was taking metformin 500mg po BID and glipizide once daily up until 2 years ago. She became homeless about 2 months ago. Constitutional: Fever and chill Eye: No discharge. No icterus ENMT: No decreased hearing, no ear pain Genitourinary: No dysuria. Respiratory: Shortness of breath, cough and sputum production Cardiovascular: No chest pain, No palpitations. Gastrointestinal: Diarrhea Integumentary: No pruritus Neurologic: Lethargic but answers questions appropriately Psychiatric: Not delusional. No anxiety Past Medical History Medical History: diabetes, other (asthma) Home Meds Discontinued Reported Medications Ibuprofen (Motrin) 400 Mg Tablet 04/24/11 Acetaminophen-Codeine* (Tylenol No.3*) 1 Tab Tablet 04/24/11 Medications Current Medications Ondansetron HCl (Zofran Inj) 4 mg Q6H PRN IV NAUSEA AND/OR VOMITING; Start 06/09/18 at 00:30 Albuterol (Proventil 0.083% (Neb)) 2.5 mg Q2H RESP THERAPY PRN NEB SHORTNESS OF BREATH; Start 06/09/18 at 00:30 Ipratropium [place] (Atrovent 0.02% (Neb)) 0.5 mg Q2H RESP THERAPY PRN NEB SHORTNESS OF BREATH; Start 06/09/18 at 00:30 Acetaminophen (Tylenol Liquid) 650 mg Q6H PRN PO PAIN LEVEL 1-3 OR FEVER Last administered on 06/09/18at 06:39; Admin Dose 650 MG; Start 06/09/18 at 00:30 Acetaminophen/ Hydrocodone Bitart ([place] (5/325)) 1 tab Q6H PRN PO PAIN LEVEL 4-6 Last administered on 06/09/18at 14:37; Admin Dose 1 TAB; Start 06/09/18 at 00:30 Docusate Sodium (Colace) 100 mg Q12H PRN PO CONSTIPATION; Start 06/09/18 at 00:30 Bisacodyl (Dulcolax) 5 mg DAILY PRN PO CONSTIPATION; Start 06/09/18 at 00:30 Pantoprazole (Protonix Tab) 40 mg DAILY@06 PO Last administered on 06/09/18at 05:50; Admin Dose 40 MG; Start 06/09/18 at 06:00 Heparin Sodium (Porcine) (Heparin (5000 Units/1ml)) 5,000 unit Q8 SC Last administered on 06/09/18at 13:37; Admin Dose 5,000 UNIT; Start 06/09/18 at 06:00 Ceftriaxone Sodium 50 ml @ 100 mls/hr Q24H IVPB ; Start 06/09/18 at 20:00 Azithromycin 250 ml @ 250 mls/hr Q24H IVPB ; Start 06/09/18 at 20:00 Insulin Glargine (Lantus) 15 units DAILY@0800 SC ; Start 06/10/18 at 08:00 Diagnostic Test (Pha) (Accu-Chek) 1 ea 02 XX ; Start 06/10/18 at 02:00 Insulin Aspart (Novolog Insulin Pen) 4 unit WITH MEALS SC ; Start 06/09/18 at 18:00 Insulin Aspart (Novolog Insulin Pen) NOVOLOG *MILD* ALGORITHM WITH MEALS BEDTIME SC ; Start 06/09/18 at 18:00 Magnesium Sulfate 50 ml @ 25 mls/hr ONCE ONCE IVPB Last administered on 06/09/18at 15:08; Admin Dose 25 MLS/HR; Start 06/09/18 at 15:30; Stop 06/09/18 at 17:29 Miscellaneous Information 1 ea NOTE XX ; Start 06/09/18 at 14:30 Glucose (Glutose) 15 gm Q15M PRN PO DECREASED GLUCOSE; Start 06/09/18 at 14:30 Glucose (Glutose) 22.5 gm Q15M PRN PO DECREASED GLUCOSE; Start 06/09/18 at 14:30 Dextrose (D50w Syringe) 25 ml Q15M PRN IV DECREASED GLUCOSE; Start 06/09/18 at 14:30 Dextrose (D50w Syringe) 50 ml Q15M PRN IV DECREASED GLUCOSE; Start 06/09/18 at 14:30 Glucagon (Glucagen) 1 mg Q15M PRN IM DECREASED GLUCOSE; Start 06/09/18 at 14:30 Glucose (Glutose) 15 gm Q15M PRN BUCCAL DECREASED GLUCOSE; Start 06/09/18 at 14:30 Allergies: Coded Allergies: No Known Allergy (Unverified , 04/24/11) Past Surgical History Past Surgical Hx: other (C section x4) Family History Significant Family History: diabetes Social History Smoking Status: Current every day smoker Drug Use: none Exam/Review of Systems Exam Vitals Vital Signs Date Temp Pulse Resp B/P (MAP) Pulse Ox O2 O2 Flow FiO2 Time Delivery Rate 06/09/18 101.2 131 19 128/80 93 14:22 (96) 06/09/18 Nasal 3.0 13:47 Cannula Intake and Output 06/08/18 06/08/18 06/09/18 1515:00 23:00 07:00 IntakeIntake Total 2300 ml BalanceBalance 2300 ml Exam General: Appears to be in respiratory distress. Skin appropriate for ethnicity Eye: Extraocular movements are intact, Normal conjunctiva. HENT: Normocephalic, atraumatic. Dry lips Respiratory: Respirations are labored, Breath sounds are coarse, Symmetrical chest wall expansion. Cardiovascular: S1, S2. Tachycardic. No LE edema Gastrointestinal: Soft, Non-tender, Non-distended, Normal bowel sounds. Integumentary: Warm to touch. Neurologic: Lethargic but answers questions appropriately Cognition and Speech: Speech clear and coherent, Functional cognition intact. Psychiatric: Cooperative Results Result Diagram: 06/09/18 0415 06/09/18 0836 Results 24hrs Laboratory Tests Test 06/08/18 22:56 06/08/18 23:10 06/08/18 23:35 06/08/18 23:47 White Blood 14.9 H Count Red Blood Count 4.99 Hemoglobin 13.6 Hematocrit 42.7 Mean Corpuscular 85.6 Volume Mean Corpuscular 27.3 L Hemoglobin Mean Corpuscular 31.9 L Hemoglobin Bia nt Red Cell 14.7 H Distribution Width Platelet Count 204 Mean Platelet 12.4 H Volume Immature 0.400 Granulocytes % Neutrophils % Segmented 71 Neutrophils % (Manual) Band Neutrophils 21 H % (Manual) Lymphocytes % Lymphocytes % 4 L (Manual) Reactive 2 H Lymphocytes % (Manual) Monocytes % Monocytes % 2 (Manual) Eosinophils % Basophils % Nucleated Red 0.0 Blood Cells % Immature 0.060 H Granulocytes # Neutrophils # Neutrophils # 11.0 H (Manual) Band Neutrophils 3.1 H # Lymphocytes 0.5 L (Manual) Lymphocytes # Reactive 0.2 H Lymphocytes # Monocytes # Monocytes # 0.2 L (Manual) Eosinophils # Basophils # Nucleated Red Blood Cells # Platelet NORMAL Estimate Giant Platelets 2 H Prothrombin Time 16.3 H Prothrombin Time 1.3 Ratio INR 1.30 International Normalized Ratio Activated 30.4 Partial Thrombop last Time Sodium Level 132 L Potassium Level 4.3 Chloride Level 91 L Carbon Dioxide 18 L Level Anion Gap 23 H Blood Urea 10 Nitrogen Creatinine 0.53 Est Glomerular > 60 Filtrat Rate mL/min Glucose Level 522 *H Calcium Level 9.5 Total Bilirubin 0.7 Direct Bilirubin 0.00 Indirect 0.7 Bilirubin Aspartate Amino 16 Transf (AST/SGOT ) Alanine < 6 L Aminotransferase (ALT/SGPT) Alkaline 158 H Phosphatase Troponin I < 0.012 Total Protein 8.0 Albumin 3.9 Globulin 4.10 H Albumin/Globulin 0.95 Ratio Urine Color YELLOW Urine Clarity CLEAR Urine pH 5.0 Urine Specific 1.028 [place] Urine Ketones 2+ H Urine Nitrite NEGATIVE Urine Bilirubin NEGATIVE Urine NEGATIVE Urobilinogen Urine Leukocyte NEGATIVE Esterase Urine 0 Microscopic RBC Urine 0 Microscopic WBC Urine Squamous FEW Epithelial Cells Urine Bacteria FEW A Urine Hemoglobin 1+ H Urine Glucose 3+ H Urine Total NEGATIVE Protein Lactic Acid 3.1 *H Level Blood Gas Blood venous Specimen Source Arterial Blood 06/09/2018 12:25 Date Drawn :25 AM Arterial Blood VENOUS LINE Gas Puncture Site Jerald Test ACCEPTAB Venous Blood pH 7.297 L Venous Blood 36.5 pCO2 (Temp Corrected) Venous Blood pO2 32.8 H (Temp Corrected) Venous Blood 17.4 L HCO3 Venous Blood 55.2 Oxygen Saturation Venous Blood -8.3 L Base Excess Venous Blood 12.0 Total Hemoglobin Venous Blood 54.9 Oxyhemoglobin Venous Blood 0.2 Methemoglobin Carboxyhemoglobi 0.4 n Blood Gas 37.0 Temperature Blood Gas NASAL CANNULA Modality FiO2 27.0 Blood Gas UP Notified Whom Blood Gas 06/09/2018 12:33 Notified Time :36 AM Test 06/09/18 00:53 06/09/18 01:07 06/09/18 01:10 06/09/18 01:52 Lactic Acid 2.0 Level Bedside Glucose 459 *H Sodium Level 133 L Potassium Level 4.0 Chloride Level 102 # Carbon Dioxide 17 L Level Anion Gap 14 #H Blood Urea 8 Nitrogen Creatinine 0.45 Est Glomerular > 60 Filtrat Rate mL/min Glucose Level 435 *H Hemoglobin A1c 13.2 H Calcium Level 8.3 L Phosphorus Level 2.6 Magnesium Level 1.7 Blood Gas Blood venous Specimen Source Arterial Blood 06/09/2018 2:10: Date Drawn 40 AM Arterial Blood VENOUS LINE Gas Puncture Site Jerald Test N/A Venous Blood pH 7.277 L Venous Blood 40.9 pCO2 (Temp Corrected) Venous Blood pO2 26.7 (Temp Corrected) Venous Blood 18.7 L HCO3 Venous Blood 41.4 L Oxygen Saturation Venous Blood -7.7 L Base Excess Venous Blood 12.4 Total Hemoglobin Venous Blood 41.2 Oxyhemoglobin Venous Blood 0.5 Methemoglobin Carboxyhemoglobi 0.1 n Blood Gas 37.0 Temperature Blood Gas NASAL CANNULA Modality FiO2 33.0 Blood Gas MA Notified Whom Blood Gas 06/09/2018 2:21: Notified Time 27 AM Test 06/09/18 02:14 06/09/18 02:48 06/09/18 03:10 06/09/18 03:11 Bedside Glucose 399 H 280 H Lactic Acid 2.3 *H Level Sodium Level 136 Potassium Level 3.9 Chloride Level 105 Carbon Dioxide 20 L Level Anion Gap 11 Blood Urea 8 Nitrogen Creatinine 0.47 Est Glomerular > 60 Filtrat Rate mL/min Glucose Level 298 #H Calcium Level 8.6 Phosphorus Level 1.9 L Magnesium Level 1.8 Test 06/09/18 03:52 06/09/18 04:10 06/09/18 04:15 06/09/18 04:59 Blood Gas Blood venous Specimen Source Arterial Blood 06/09/2018 3:25: Date Drawn 09 AM Arterial Blood VENOUS LINE Gas Puncture Site Jerald Test N/A Venous Blood pH 7.265 L Venous Blood 45.8 H pCO2 (Temp Corrected) Venous Blood pO2 18.9 L (Temp Corrected) Venous Blood 20.3 L HCO3 Venous Blood 24.7 L Oxygen Saturation Venous Blood -6.5 L Base Excess Venous Blood 11.6 Total Hemoglobin Venous Blood 24.2 Oxyhemoglobin Venous Blood 1.9 Methemoglobin Carboxyhemoglobi 0.3 n Blood Gas 37.0 Temperature Blood Gas NASAL CANNULA Modality FiO2 27.0 Blood Gas UP Notified Whom Blood Gas 06/09/2018 3:35: Notified Time 15 AM Bedside Glucose 275 H White Blood 11.6 #H Count Red Blood Count 4.21 Hemoglobin 11.5 L Hematocrit 35.8 L Mean Corpuscular 85.0 Volume Mean Corpuscular 27.3 L Hemoglobin Mean Corpuscular 32.1 Hemoglobin Bia nt Red Cell 14.6 H Distribution Width Platelet Count 185 Mean Platelet 11.9 H Volume Immature 0.300 Granulocytes % Neutrophils % Segmented 51 Neutrophils % (Manual) Band Neutrophils 28 H % (Manual) Lymphocytes % Lymphocytes % 16 (Manual) Monocytes % Monocytes % 5 (Manual) Eosinophils % Basophils % Nucleated Red 0.0 Blood Cells % Immature 0.030 Granulocytes # Neutrophils # Neutrophils # 6.3 (Manual) Band Neutrophils 3.2 H # Lymphocytes 1.8 (Manual) Lymphocytes # Monocytes # Monocytes # 0.5 (Manual) Eosinophils # Basophils # Nucleated Red Blood Cells # Platelet NORMAL Estimate Giant Platelets 1 H Polychromasia 2+ Poikilocytosis 2+ Anisocytosis 1+ Hemoglobin A1c 13.2 H Urine Opiates Negative Screen Urine Negative Barbiturates Urine Negative Amphetamines Screen Urine Negative Benzodiazepines Screen Urine Cocaine Negative Screen Urine Negative Cannabinoids Test 06/09/18 05:08 06/09/18 05:12 06/09/18 06:09 06/09/18 07:11 Sodium Level 135 Potassium Level 3.6 Chloride Level 104 Carbon Dioxide 21 Level Anion Gap 10 Blood Urea 6 L Nitrogen Creatinine 0.38 L Est Glomerular > 60 Filtrat Rate mL/min Glucose Level 290 H Calcium Level 8.5 Bedside Glucose 284 H 308 H 266 H Test 06/09/18 08:20 06/09/18 08:36 06/09/18 09:17 06/09/18 10:24 Bedside Glucose 260 H 207 229 H Sodium Level 136 Potassium Level 3.7 Chloride Level 105 Carbon Dioxide 21 Level Anion Gap 10 Blood Urea 4 L Nitrogen Creatinine 0.30 L Est Glomerular > 60 Filtrat Rate mL/min Glucose Level 266 H Calcium Level 8.4 Phosphorus Level 0.9 #L Magnesium Level 1.7 Test 06/09/18 11:21 06/09/18 12:31 Bedside Glucose 155 188 Medications Medication Current Medications Ondansetron HCl (Zofran Inj) 4 mg Q6H PRN IV NAUSEA AND/OR VOMITING; Start 06/09/18 at 00:30 Albuterol (Proventil 0.083% (Neb)) 2.5 mg Q2H RESP THERAPY PRN NEB SHORTNESS OF BREATH; Start 06/09/18 at 00:30 Ipratropium [place] (Atrovent 0.02% (Neb)) 0.5 mg Q2H RESP THERAPY PRN NEB SHORTNESS OF BREATH; Start 06/09/18 at 00:30 Acetaminophen (Tylenol Liquid) 650 mg Q6H PRN PO PAIN LEVEL 1-3 OR FEVER Last administered on 06/09/18at 06:39; Admin Dose 650 MG; Start 06/09/18 at 00:30 Acetaminophen/ Hydrocodone Bitart ([place] (5/325)) 1 tab Q6H PRN PO PAIN LEVEL 4-6 Last administered on 06/09/18at 14:37; Admin Dose 1 TAB; Start 06/09/18 at 00:30 Docusate Sodium (Colace) 100 mg Q12H PRN PO CONSTIPATION; Start 06/09/18 at 00:30 Bisacodyl (Dulcolax) 5 mg DAILY PRN PO CONSTIPATION; Start 06/09/18 at 00:30 Pantoprazole (Protonix Tab) 40 mg DAILY@06 PO Last administered on 06/09/18at 05:50; Admin Dose 40 MG; Start 06/09/18 at 06:00 Heparin Sodium (Porcine) (Heparin (5000 Units/1ml)) 5,000 unit Q8 SC Last administered on 06/09/18at 13:37; Admin Dose 5,000 UNIT; Start 06/09/18 at 06:00 Ceftriaxone Sodium 50 ml @ 100 mls/hr Q24H IVPB ; Start 06/09/18 at 20:00 Azithromycin 250 ml @ 250 mls/hr Q24H IVPB ; Start 06/09/18 at 20:00 Insulin Glargine (Lantus) 15 units DAILY@0800 SC ; Start 06/10/18 at 08:00 Diagnostic Test (Pha) (Accu-Chek) 1 ea 02 XX ; Start 06/10/18 at 02:00 Insulin Aspart (Novolog Insulin Pen) 4 unit WITH MEALS SC ; Start 06/09/18 at 18:00 Insulin Aspart (Novolog Insulin Pen) NOVOLOG *MILD* ALGORITHM WITH MEALS BEDTIME SC ; Start 06/09/18 at 18:00 Magnesium Sulfate 50 ml @ 25 mls/hr ONCE ONCE IVPB Last administered on 06/09/18at 15:08; Admin Dose 25 MLS/HR; Start 06/09/18 at 15:30; Stop 06/09/18 at 17:29 Miscellaneous Information 1 ea NOTE XX ; Start 06/09/18 at 14:30 Glucose (Glutose) 15 gm Q15M PRN PO DECREASED GLUCOSE; Start 06/09/18 at 14:30 Glucose (Glutose) 22.5 gm Q15M PRN PO DECREASED GLUCOSE; Start 06/09/18 at 14:30 Dextrose (D50w Syringe) 25 ml Q15M PRN IV DECREASED GLUCOSE; Start 06/09/18 at 14:30 Dextrose (D50w Syringe) 50 ml Q15M PRN IV DECREASED GLUCOSE; Start 06/09/18 at 14:30 Glucagon (Glucagen) 1 mg Q15M PRN IM DECREASED GLUCOSE; Start 06/09/18 at 14:30 Glucose (Glutose) 15 gm Q15M PRN BUCCAL DECREASED GLUCOSE; Start 06/09/18 at 14:30 FERDINAND ROBIN MD Jun 09, 2018 15:14
[2018-06-09] MEDS ORDERED: MAGNESIUM SULFATE 2 GM/50 ML 50 ML IVPB ONE (15:30)
[2018-06-09 16:00] VITALS: BP 114/57; PULSE 115; RESP 20
[2018-06-09] MEDS: INSULIN ASPART [NOVOLOG] 3 ML PEN SC SCH ×3 (17:32→21:34)
[2018-06-09] MEDS: CEFTRIAXONE 1 GM/50 ML (PMX) 50 ML IVPB SCH (19:57)
[2018-06-09 20:00] VITALS: BP 113/79; PULSE 101; PULSE 105; RESP 18
[2018-06-09] MEDS: AZITHROMYCIN 500MG/NS (PMX) 250 ML IVPB SCH (20:54)
[2018-06-10] VITALS (13 sets, daily range): BP systolic 99–127; BP diastolic 56–75; PULSE 66–129; RESP 16–20
[2018-06-10] MEDS: ACCU-CHEK XX SCH (02:00)
[2018-06-10] MEDS: ACETAMINOPHEN 650MG/20.3ML CUP PO PRN ×2 (04:39→20:03)
[2018-06-10] MEDS ORDERED: VANCOMYCIN 1 GM 250 ML IVPB ONE (06:00)
[2018-06-10] MEDS ORDERED: VANCOMYCIN IV PER PHARMACY XX SCH (06:00)
[2018-06-10] MEDS: PANTOPRAZOLE (EC) 40 MG TAB PO SCH (06:01)
[2018-06-10] MEDS: HEPARIN 5,000 UNIT/1 ML VIAL SC SCH ×3 (06:34→22:00)
[2018-06-10] MEDS ORDERED: POTASSIUM CHLORIDE (SR) 10 MEQ TAB PO ONE (07:00)
[2018-06-10] MEDS ORDERED: INSULIN GLARGINE [LANTus] (100 UNITS/ML) SYG SC SCH (08:00)
[2018-06-10] MEDS: INSULIN ASPART [NOVOLOG] 3 ML PEN SC SCH ×7 (08:21→21:00)
[2018-06-10] MEDS ORDERED: INFLUENZA VIRUS VACCINE 0.5 ML (DISPENSING) IM* ONE (09:00)
[2018-06-10] MEDS ORDERED: INSULIN GLARGINE [LANTus] (100 UNITS/ML) SYG SC ONE (11:00)
--- NOTE | 2018-06-10 12:59 | CONS ---
Assessment/Plan Assessment/Plan Hospital Course (Demo Recall) 48 y/o F with type 2 DM diagnosed about 5 years ago presented to the ED with body aches, fever and productive cough for the past 3 days. Workup here showed fever, tachycardia and imaging showed multiple areas of consolidation in different lobes of the lung. She had elevated anion gap with low pH and elevated lactic acid and required short course of IV insulin infusion; her elevated anion gap could be secondary to lactic acidosis. Endocrine consulted for management of hyperglycemia. Type 2 DM -uncontrolled, A1c of 13.2 -increase lantus to 20 units in AM -increase novolog to 7 units TIDAC -continue mild dose correction scale with meals and HS -check FS AC and HS -will follow with you and adjust regimen accordingly -discharge medications will depend upon disposition plan (d/c to street vs half-way vs home?) Consultation Date/Type/Reason Admit Date/Time Jun 08, 2018 at 23:53 Initial Consult Date Date/Time of Note DATE: 06/10/18 TIME: 12:55 24 HR Interval Summary Free Text/Dictation Patient seen and examined at bedside. She appears more awake today. FS reviewed, readings are mostly in the hyperglycemic range Exam/Review of Systems Exam Vitals Vital Signs Date Temp Pulse Resp B/P (MAP) Pulse Ox O2 O2 Flow FiO2 Time Delivery Rate 06/10/18 118 12:13 06/10/18 98.3 20 119/75 91 Room Air 11:32 (90) 06/09/18 2.0 15:32 Intake and Output 06/09/18 06/09/18 06/10/18 1515:00 23:00 07:00 IntakeIntake Total 600 ml 900 ml BalanceBalance 600 ml 900 ml Exam General: Resting in bed. Skin appropriate for ethnicity Eye: Extraocular movements are intact, Normal conjunctiva. HENT: Normocephalic, atraumatic. Respiratory: Respirations are labored, Breath sounds are coarse, Symmetrical chest wall expansion. Cardiovascular: S1, S2. No murmur. No LE edema Gastrointestinal: Soft, Non-tender, Non-distended, Normal bowel sounds. Integumentary: Warm to touch. Neurologic: Alert, Oriented. Cognition and Speech: Speech clear and coherent, Functional cognition intact. Psychiatric: Cooperative. Results Result Diagram: 06/10/18 0513 06/10/18 0513 Results 24hrs Laboratory Tests Test 06/09/18 17:27 06/09/18 21:08 06/10/18 02:50 06/10/18 05:13 Bedside Glucose 292 H 305 H 177 White Blood Count 14.3 #H Red Blood Count 3.82 L Hemoglobin 10.3 L Hematocrit 32.1 L Mean Corpuscular 84.0 Volume Mean Corpuscular 27.0 L Hemoglobin Mean Corpuscular 32.1 Hemoglobin Concent Red Cell 15.1 H Distribution Width Platelet Count 256 # Mean Platelet Volume 12.6 H Immature 0.900 H Granulocytes % Neutrophils % Segmented 69 Neutrophils % (Manual) Band Neutrophils % 14 H (Manual) Lymphocytes % Lymphocytes % 12 L (Manual) Monocytes % Monocytes % (Manual) 5 Eosinophils % Basophils % Nucleated Red Blood 0.0 Cells % Immature 0.130 H Granulocytes # Neutrophils # Neutrophils # 10.2 H (Manual) Band Neutrophils # 2.0 H Lymphocytes (Manual) 1.7 Lymphocytes # Monocytes # Monocytes # (Manual) 0.7 Eosinophils # Basophils # Nucleated Red Blood Cells # Toxic Granulation 1+ Platelet Estimate NORMAL Giant Platelets 1 H Polychromasia 1+ Poikilocytosis 1+ Sodium Level 133 L Potassium Level 2.9 *L Chloride Level 97 Carbon Dioxide Level 23 Anion Gap 13 Blood Urea Nitrogen 5 L Creatinine 0.38 L Est Glomerular > 60 Filtrat Rate mL/min Glucose Level 245 H Calcium Level 8.3 L Phosphorus Level 1.3 L Magnesium Level 1.7 Test 06/10/18 08:05 06/10/18 12:00 Bedside Glucose 224 H 228 H Medications Medication Current Medications Ondansetron HCl (Zofran Inj) 4 mg Q6H PRN IV NAUSEA AND/OR VOMITING; Start 06/09/18 at 00:30 Albuterol (Proventil 0.083% (Neb)) 2.5 mg Q2H RESP THERAPY PRN NEB SHORTNESS OF BREATH; Start 06/09/18 at 00:30 Ipratropium [place] (Atrovent 0.02% (Neb)) 0.5 mg Q2H RESP THERAPY PRN NEB SHORTNESS OF BREATH; Start 06/09/18 at 00:30 Acetaminophen (Tylenol Liquid) 650 mg Q6H PRN PO PAIN LEVEL 1-3 OR FEVER Last administered on 06/10/18at 04:39; Admin Dose 650 MG; Start 06/09/18 at 00:30 Acetaminophen/ Hydrocodone Bitart ([place] (5/325)) 1 tab Q6H PRN PO PAIN LEVEL 4-6 Last administered on 06/09/18at 21:31; Admin Dose 1 TAB; Start 06/09/18 at 00:30 Docusate Sodium (Colace) 100 mg Q12H PRN PO CONSTIPATION; Start 06/09/18 at 00:30 Bisacodyl (Dulcolax) 5 mg DAILY PRN PO CONSTIPATION; Start 06/09/18 at 00:30 Pantoprazole (Protonix Tab) 40 mg DAILY@06 PO Last administered on 06/10/18at 06:01; Admin Dose 40 MG; Start 06/09/18 at 06:00 Heparin Sodium (Porcine) (Heparin (5000 Units/1ml)) 5,000 unit Q8 SC Last administered on 06/10/18at 06:34; Admin Dose 5,000 UNIT; Start 06/09/18 at 06:00 Ceftriaxone Sodium 50 ml @ 100 mls/hr Q24H IVPB Last administered on 06/09/18at 19:57; Admin Dose 100 MLS/HR; Start 06/09/18 at 20:00 Azithromycin 250 ml @ 250 mls/hr Q24H IVPB Last administered on 06/09/18at 20:54; Admin Dose 250 MLS/HR; Start 06/09/18 at 20:00 Diagnostic Test (Pha) (Accu-Chek) 1 ea 02 XX ; Start 06/10/18 at 02:00 Insulin Aspart (Novolog Insulin Pen) NOVOLOG *MILD* ALGORITHM WITH MEALS BEDTIME SC Last administered on 06/10/18at 12:20; Admin Dose 3 UNIT; Start 06/09/18 at 18:00 Miscellaneous Information 1 ea NOTE XX ; Start 06/09/18 at 14:30 Glucose (Glutose) 15 gm Q15M PRN PO DECREASED GLUCOSE; Start 06/09/18 at 14:30 Glucose (Glutose) 22.5 gm Q15M PRN PO DECREASED GLUCOSE; Start 06/09/18 at 14:30 Dextrose (D50w Syringe) 25 ml Q15M PRN IV DECREASED GLUCOSE; Start 06/09/18 at 14:30 Dextrose (D50w Syringe) 50 ml Q15M PRN IV DECREASED GLUCOSE; Start 06/09/18 at 14:30 Glucagon (Glucagen) 1 mg Q15M PRN IM DECREASED GLUCOSE; Start 06/09/18 at 14:30 Glucose (Glutose) 15 gm Q15M PRN BUCCAL DECREASED GLUCOSE; Start 06/09/18 at 14:30 Vancomycin HCl (Vanco Iv Per Pharmacy) VANCOMYCIN PER PHARMACY PER PROTOCOL XX ; Start 06/10/18 at 06:00 Vancomycin/Sodium Chloride 250 ml @ 125 mls/hr Q8H IVPB ; Start 06/10/18 at 14:00 Miscellaneous Information (*Rx Drug Level Order Reminder*) VANCO TROUGH @ 0,500 ONCE ONCE XX ; Start 06/11/18 at 05:00; Stop 06/11/18 at 05:01 Insulin Aspart (Novolog Insulin Pen) 7 unit WITH MEALS SC Last administered on 06/10/18at 12:20; Admin Dose 7 UNIT; Start 06/10/18 at 12:00 Insulin Glargine (Lantus) 20 units DAILY@0800 SC ; Start 06/11/18 at 08:00 FERDINAND ROBIN MD Jun 10, 2018 12:59
[2018-06-10] MEDS: HYDROCODONE/APAP (5/325) TAB PO PRN (13:40)
[2018-06-10] MEDS: VANCOMYCIN 750 MG (PMX) 250 ML IVPB SCH ×2 (13:42→22:27)
[2018-06-10] MEDS ORDERED: POTASSIUM CHLORIDE (SR) 20 MEQ TAB PO STA (13:50)
--- NOTE | 2018-06-10 14:01 | PN ---
Date/Time of Note Date/Time of Note DATE: 06/10/18 TIME: 13:58 Assessment/Plan VTE Prophylaxis Risk score (from [facility])>0 risk: 2 SCD applied (from [facility]): No SCD contraindicated: low risk/ambulating Pharmacological prophylaxis: heparin Lines/Catheters IV [facility]ter Type (from [facility]): Peripheral IV Urinary Cath still in place: No Assessment/Plan Problems: (1) DKA (diabetic ketoacidoses) Status: Resolved Comment: Resolved and was caused by the infection/sepsis picture. This is a type II diabetic Qualifiers: Diabetes mellitus type: type 1 Diabetes mellitus complication detail: without coma Qualified Codes: E10.10 - Type 1 diabetes mellitus with ke toacidosis without coma (2) Diabetes mellitus type 2 in nonobese Status: Chronic Comment: She has inadequate control as an outpatient. Due to her homeless status we need to come up with a fairly simple regimen for her to follow. (3) Pneumonia Status: Acute Comment: On antibiotics appropriately slow improvement. Qualifiers: Pneumonia type: due to unspecified organism Laterality: left Lung location: upper lobe of lung Qualified Codes: J18.1 - Lobar pneumonia, unspecified organism (4) Severe sepsis Status: Resolved Comment: Resolved. (5) Anemia Status: Acute Comment: Basic workup please Qualifiers: Anemia type: unspecified type Qualified Codes: D64.9 - Anemia, unspecified (6) Acute hypokalemia Status: Acute Comment: Will replace (7) Asthma, mild persistent Status: Chronic Comment: Due to the infection. Continue with anti-asthma medications Qualifiers: Asthma complication type: with acute exacerbation Qualified Codes: J45.31 - Mild persistent asthma with (acute) exacerbation (8) Tobacco abuse Status: Chronic Comment: Strongly counseled as well as counseled on methamphetamine usage (9) Homeless single person Status: Chronic Comment: Management and social service to be of assistance Result Diagram: 06/10/18 0513 06/10/18 0513 Results 24hrs Laboratory Tests Test 06/09/18 17:27 06/09/18 21:08 06/10/18 02:50 06/10/18 05:13 Bedside Glucose 292 H 305 H 177 White Blood Count 14.3 #H Red Blood Count 3.82 L Hemoglobin 10.3 L Hematocrit 32.1 L Mean Corpuscular 84.0 Volume Mean Corpuscular 27.0 L Hemoglobin Mean Corpuscular 32.1 Hemoglobin Concent Red Cell 15.1 H Distribution Width Platelet Count 256 # Mean Platelet Volume 12.6 H Immature 0.900 H Granulocytes % Neutrophils % Segmented 69 Neutrophils % (Manual) Band Neutrophils % 14 H (Manual) Lymphocytes % Lymphocytes % 12 L (Manual) Monocytes % Monocytes % (Manual) 5 Eosinophils % Basophils % Nucleated Red Blood 0.0 Cells % Immature 0.130 H Granulocytes # Neutrophils # Neutrophils # 10.2 H (Manual) Band Neutrophils # 2.0 H Lymphocytes (Manual) 1.7 Lymphocytes # Monocytes # Monocytes # (Manual) 0.7 Eosinophils # Basophils # Nucleated Red Blood Cells # Toxic Granulation 1+ Platelet Estimate NORMAL Giant Platelets 1 H Polychromasia 1+ Poikilocytosis 1+ Sodium Level 133 L Potassium Level 2.9 *L Chloride Level 97 Carbon Dioxide Level 23 Anion Gap 13 Blood Urea Nitrogen 5 L Creatinine 0.38 L Est Glomerular > 60 Filtrat Rate mL/min Glucose Level 245 H Calcium Level 8.3 L Phosphorus Level 1.3 L Magnesium Level 1.7 Test 06/10/18 08:05 06/10/18 12:00 Bedside Glucose 224 H 228 H Subjective 24 Hr Interval Summary Free Text/Dictation Uncomfortable female lying in bed coughing Constitutional: no complaints (Denies fevers chills or sweats) Respiratory: cough (Planes of cough inducing chest pain at the costosternal junction), shortness of breath Cardiovascular: no complaints Gastrointestinal: no complaints Exam/Review of Systems Exam Vitals Vital Signs Date Temp Pulse Resp B/P (MAP) Pulse Ox O2 O2 Flow FiO2 Time Delivery Rate 06/10/18 118 12:13 06/10/18 98.3 20 119/75 91 Room Air 11:32 (90) 06/09/18 2.0 15:32 Intake and Output 06/09/18 06/09/18 06/10/18 1515:00 23:00 07:00 IntakeIntake Total 600 ml 900 ml BalanceBalance 600 ml 900 ml Constitutional: alert, oriented Neck: supple, non-tender Respiratory: normal air movement, crackles/rales (Bibasilar crackles), other (Trigger points at the costosternal junction and xiphoid) Cardiovascular: regular rate and rhythm, nl pulses Gastrointestinal: soft, nl liver, spleen, non-tender Results Results 24hrs Laboratory Tests Test 06/09/18 17:27 06/09/18 21:08 06/10/18 02:50 06/10/18 05:13 Bedside Glucose 292 H 305 H 177 White Blood Count 14.3 #H Red Blood Count 3.82 L Hemoglobin 10.3 L Hematocrit 32.1 L Mean Corpuscular 84.0 Volume Mean Corpuscular 27.0 L Hemoglobin Mean Corpuscular 32.1 Hemoglobin Concent Red Cell 15.1 H Distribution Width Platelet Count 256 # Mean Platelet Volume 12.6 H Immature 0.900 H Granulocytes % Neutrophils % Segmented 69 Neutrophils % (Manual) Band Neutrophils % 14 H (Manual) Lymphocytes % Lymphocytes % 12 L (Manual) Monocytes % Monocytes % (Manual) 5 Eosinophils % Basophils % Nucleated Red Blood 0.0 Cells % Immature 0.130 H Granulocytes # Neutrophils # Neutrophils # 10.2 H (Manual) Band Neutrophils # 2.0 H Lymphocytes (Manual) 1.7 Lymphocytes # Monocytes # Monocytes # (Manual) 0.7 Eosinophils # Basophils # Nucleated Red Blood Cells # Toxic Granulation 1+ Platelet Estimate NORMAL Giant Platelets 1 H Polychromasia 1+ Poikilocytosis 1+ Sodium Level 133 L Potassium Level 2.9 *L Chloride Level 97 Carbon Dioxide Level 23 Anion Gap 13 Blood Urea Nitrogen 5 L Creatinine 0.38 L Est Glomerular > 60 Filtrat Rate mL/min Glucose Level 245 H Calcium Level 8.3 L Phosphorus Level 1.3 L Magnesium Level 1.7 Test 06/10/18 08:05 06/10/18 12:00 Bedside Glucose 224 H 228 H Medications Medication Current Medications Ondansetron HCl (Zofran Inj) 4 mg Q6H PRN IV NAUSEA AND/OR VOMITING; Start 06/09/18 at 00:30 Albuterol (Proventil 0.083% (Neb)) 2.5 mg Q2H RESP THERAPY PRN NEB SHORTNESS OF BREATH; Start 06/09/18 at 00:30 Ipratropium [place] (Atrovent 0.02% (Neb)) 0.5 mg Q2H RESP THERAPY PRN NEB SHORTNESS OF BREATH; Start 06/09/18 at 00:30 Acetaminophen (Tylenol Liquid) 650 mg Q6H PRN PO PAIN LEVEL 1-3 OR FEVER Last administered on 06/10/18at 04:39; Admin Dose 650 MG; Start 06/09/18 at 00:30 Acetaminophen/ Hydrocodone Bitart ([place] (5/325)) 1 tab Q6H PRN PO PAIN LEVEL 4-6 Last administered on 06/09/18at 21:31; Admin Dose 1 TAB; Start 06/09/18 at 00:30 Docusate Sodium (Colace) 100 mg Q12H PRN PO CONSTIPATION; Start 06/09/18 at 00:30 Bisacodyl (Dulcolax) 5 mg DAILY PRN PO CONSTIPATION; Start 06/09/18 at 00:30 Pantoprazole (Protonix Tab) 40 mg DAILY@06 PO Last administered on 06/10/18at 06:01; Admin Dose 40 MG; Start 06/09/18 at 06:00 Heparin Sodium (Porcine) (Heparin (5000 Units/1ml)) 5,000 unit Q8 SC Last administered on 06/10/18at 06:34; Admin Dose 5,000 UNIT; Start 06/09/18 at 06:00 Ceftriaxone Sodium 50 ml @ 100 mls/hr Q24H IVPB Last administered on 06/09/18at 19:57; Admin Dose 100 MLS/HR; Start 06/09/18 at 20:00 Azithromycin 250 ml @ 250 mls/hr Q24H IVPB Last administered on 06/09/18at 20:54; Admin Dose 250 MLS/HR; Start 06/09/18 at 20:00 Diagnostic Test (Pha) (Accu-Chek) 1 ea 02 XX ; Start 06/10/18 at 02:00 Insulin Aspart (Novolog Insulin Pen) NOVOLOG *MILD* ALGORITHM WITH MEALS BEDTIME SC Last administered on 06/10/18at 12:20; Admin Dose 3 UNIT; Start 06/09/18 at 18:00 Miscellaneous Information 1 ea NOTE XX ; Start 06/09/18 at 14:30 Glucose (Glutose) 15 gm Q15M PRN PO DECREASED GLUCOSE; Start 06/09/18 at 14:30 Glucose (Glutose) 22.5 gm Q15M PRN PO DECREASED GLUCOSE; Start 06/09/18 at 14:30 Dextrose (D50w Syringe) 25 ml Q15M PRN IV DECREASED GLUCOSE; Start 06/09/18 at 14:30 Dextrose (D50w Syringe) 50 ml Q15M PRN IV DECREASED GLUCOSE; Start 06/09/18 at 14:30 Glucagon (Glucagen) 1 mg Q15M PRN IM DECREASED GLUCOSE; Start 06/09/18 at 14:30 Glucose (Glutose) 15 gm Q15M PRN BUCCAL DECREASED GLUCOSE; Start 06/09/18 at 14:30 Vancomycin HCl (Vanco Iv Per Pharmacy) VANCOMYCIN PER PHARMACY PER PROTOCOL XX ; Start 06/10/18 at 06:00 Vancomycin/Sodium Chloride 250 ml @ 125 mls/hr Q8H IVPB ; Start 06/10/18 at 14:00 Miscellaneous Information (*Rx Drug Level Order Reminder*) VANCO TROUGH @ 0,500 ONCE ONCE XX ; Start 06/11/18 at 05:00; Stop 06/11/18 at 05:01 Insulin Aspart (Novolog Insulin Pen) 7 unit WITH MEALS SC Last administered on 06/10/18at 12:20; Admin Dose 7 UNIT; Start 06/10/18 at 12:00 Insulin Glargine (Lantus) 20 units DAILY@0800 SC ; Start 06/11/18 at 08:00 STEVE AGGARWAL MD Jun 10, 2018 14:00
[2018-06-10] MEDS ORDERED: MAGNESIUM SULFATE 2 GM/50 ML 50 ML IVPB ONE (14:30)
[2018-06-10] MEDS: TIOTROPIUM 18 MCG CAPSULE INHA DEV INH SCH (15:42)
[2018-06-10] MEDS: FLUTICASONE/VILANTEROL 100-25 INH SCH (15:42)
[2018-06-10] MEDS: POTASSIUM CHLORIDE 100 ML IVPB SCH ×2 (15:42→21:32)
[2018-06-10] MEDS: IPRATROPIUM (NEB) 0.5 MG/2.5 ML AMP NEB PRN (15:48)
[2018-06-10] MEDS: SUCRALFATE (100 MG/ML) 10ML CUP PO SCH ×2 (17:06→21:29)
[2018-06-10] MEDS: metFORMIN 850 MG TAB NGT SCH (17:09)
[2018-06-10] MEDS: CEFTRIAXONE 1 GM/50 ML (PMX) 50 ML IVPB SCH (20:22)
[2018-06-10] MEDS: AZITHROMYCIN 500MG/NS (PMX) 250 ML IVPB SCH (20:28)
[2018-06-10] MEDS: MONTELUKAST 10 MG TAB PO SCH (21:29)
[2018-06-11] VITALS (11 sets, daily range): BP systolic 108–143; BP diastolic 71–94; PULSE 110–124; RESP 18–19
[2018-06-11] MEDS: POTASSIUM CHLORIDE 100 ML IVPB SCH (01:30)
[2018-06-11] MEDS: ACCU-CHEK XX SCH (02:00)
[2018-06-11] MEDS: PANTOPRAZOLE (EC) 40 MG TAB PO SCH (05:56)
[2018-06-11] MEDS: VANCOMYCIN 750 MG (PMX) 250 ML IVPB SCH (05:57)
[2018-06-11] MEDS: HEPARIN 5,000 UNIT/1 ML VIAL SC SCH ×3 (06:21→22:26)
[2018-06-11] MEDS: INSULIN ASPART [NOVOLOG] 3 ML PEN SC SCH ×7 (07:46→21:00)
[2018-06-11] MEDS: metFORMIN 850 MG TAB NGT SCH (07:46)
[2018-06-11] MEDS: SUCRALFATE (100 MG/ML) 10ML CUP PO SCH ×4 (07:46→22:06)
[2018-06-11] MEDS: INSULIN GLARGINE [LANTus] (100 UNITS/ML) SYG SC SCH (08:48)
--- NOTE | 2018-06-11 11:19 | PN ---
Date/Time of Note Date/Time of Note DATE: 06/11/18 TIME: 11:16 Assessment/Plan VTE Prophylaxis Risk score (from [facility])>0 risk: 1 SCD applied (from [facility]): No SCD contraindicated: low risk/ambulating Pharmacological prophylaxis: heparin Lines/Catheters IV [facility] Type ([facility]): Peripheral IV Urinary Cath still in place: No Assessment/Plan Problems: (1) Pneumonia Status: Acute Comment: This is a slight focal and she has staph in the blood with MRSA. She did not have any recent flu but regardless this needs to be treated and treated aggressively. In addition to this and get a check an echocardiogram to make moises e were not dealing with anything else that could be medically interesting Qualifiers: Pneumonia type: due to unspecified organism Laterality: left Lung location: upper lobe of lung Qualified Codes: J18.1 - Lobar pneumonia, unspecified organism (2) MRSA bacteremia Status: Acute Comment: On appropriate antibiotic therapy, and check echocardiogram (3) Diabetes mellitus type 2 in nonobese Status: Chronic Comment: Sugar control coming into line nicely. We will need to transition the insulin over to oral agents in the next 48 hours to make an outpatient regimen possible (4) Asthma, mild persistent Status: Chronic Comment: Adequate control Qualifiers: Asthma complication type: with acute exacerbation Qualified Codes: J45.31 - Mild persistent asthma with (acute) exacerbation (5) Tobacco abuse Status: Chronic Comment: Re-counseled (6) Acute hypokalemia Status: Resolved Comment: Corrected (7) Anemia Status: Acute Comment: We will give IV iron. Qualifiers: Anemia type: iron deficiency Iron deficiency anemia type: chronic blood loss Qualified Codes: D50.0 - Iron deficiency anemia secondary to blood loss (chronic) Result Diagram: 06/11/1818 06/11/18 0518 Results 24hrs Laboratory Tests Test 06/10/18 12:00 06/10/18 17:07 06/10/18 21:28 06/11/18 05:18 Bedside Glucose 228 H 169 160 White Blood Count 14.2 H Red Blood Count 3.55 L Hemoglobin 9.7 L Hematocrit 29.7 L Mean Corpuscular 83.7 Volume Mean Corpuscular 27.3 L Hemoglobin Mean Corpuscular 32.7 Hemoglobin Concent Red Cell 15.0 H Distribution Width Platelet Count 317 # Mean Platelet Volume 11.3 H Immature 2.900 H Granulocytes % Neutrophils % Segmented 48 Neutrophils % (Manual) Band Neutrophils % 25 H (Manual) Lymphocytes % Lymphocytes % 14 L (Manual) Monocytes % Monocytes % (Manual) 8 Eosinophils % Eosinophils % 1 (Manual) Basophils % Metamyelocytes % 1 H (manual) Myelocytes % 2 H (Manual) Plasma Cells % 1 (manual) Nucleated Red Blood 0.0 Cells % Immature 0.410 H Granulocytes # Neutrophils # Neutrophils # 7.3 (Manual) Band Neutrophils # 3.5 H Lymphocytes (Manual) 1.9 Lymphocytes # Monocytes # Monocytes # (Manual) 1.1 H Eosinophils # Basophils # Metamyelocytes # 0.1 H Myelocytes # 0.2 H Plasma Cells # 0.1 H (manual) Nucleated Red Blood Cells # Toxic Granulation 2+ Platelet Estimate NORMAL Giant Platelets 2 H Polychromasia 1+ Hypochromasia 1+ Poikilocytosis 1+ Sodium Level 134 L Potassium Level 3.6 Chloride Level 101 Carbon Dioxide Level 26 Anion Gap 7 Blood Urea Nitrogen 3 L Creatinine 0.33 L Est Glomerular > 60 Filtrat Rate mL/min Glucose Level 127 # Calcium Level 8.2 L Magnesium Level 1.8 Total Bilirubin 0.2 Direct Bilirubin 0.00 Indirect Bilirubin 0.2 Aspartate Amino 34 Transf (AST/SGOT) Alanine 22 Aminotransferase (AL T/SGPT) Alkaline Phosphatase 213 H Total Protein 5.9 L Albumin 2.7 L Globulin 3.20 Albumin/Globulin 0.84 Ratio Vancomycin Level 6.1 L Trough Test 06/11/18 07:45 Bedside Glucose 120 Subjective 24 Hr Interval Summary Free Text/Dictation Patient reports she is feeling a little bit better than yesterday. Still with cough still with chest wall pain from coughing still feels generally poorly Constitutional: febrile Eyes: no complaints ENT: no complaints Respiratory: cough, shortness of breath Cardiovascular: chest pain (With coughing) Gastrointestinal: other (Still with some anorexia but better) Genitourinary: no complaints Neurologic: no complaints Endocrine: no complaints Exam/Review of Systems Exam Vitals Vital Signs Date Temp Pulse Resp B/P (MAP) Pulse Ox O2 O2 Flow FiO2 Time Delivery Rate 06/11/18 Nasal 2.0 11:00 Cannula 06/11/18 120 08:06 06/11/18 101.3 19 108/71 91 07:42 (83) Intake and Output 06/10/18 06/10/18 06/11/18 1515:00 23:00 07:00 IntakeIntake Total 1500 ml 1350 ml BalanceBalance 1500 ml 1350 ml Constitutional: alert, oriented Neck: supple, non-tender Respiratory: normal air movement, crackles/rales (Lateral crackles and rales egophony) Cardiovascular: regular rate and rhythm, nl pulses, other (I do not appreciate any murmurs) Gastrointestinal: soft, nl liver, spleen, non-tender Results Results 24hrs Laboratory Tests Test 06/10/18 12:00 06/10/18 17:07 06/10/18 21:28 06/11/18 05:18 Bedside Glucose 228 H 169 160 White Blood Count 14.2 H Red Blood Count 3.55 L Hemoglobin 9.7 L Hematocrit 29.7 L Mean Corpuscular 83.7 Volume Mean Corpuscular 27.3 L Hemoglobin Mean Corpuscular 32.7 Hemoglobin Concent Red Cell 15.0 H Distribution Width Platelet Count 317 # Mean Platelet Volume 11.3 H Immature 2.900 H Granulocytes % Neutrophils % Segmented 48 Neutrophils % (Manual) Band Neutrophils % 25 H (Manual) Lymphocytes % Lymphocytes % 14 L (Manual) Monocytes % Monocytes % (Manual) 8 Eosinophils % Eosinophils % 1 (Manual) Basophils % Metamyelocytes % 1 H (manual) Myelocytes % 2 H (Manual) Plasma Cells % 1 (manual) Nucleated Red Blood 0.0 Cells % Immature 0.410 H Granulocytes # Neutrophils # Neutrophils # 7.3 (Manual) Band Neutrophils # 3.5 H Lymphocytes (Manual) 1.9 Lymphocytes # Monocytes # Monocytes # (Manual) 1.1 H Eosinophils # Basophils # Metamyelocytes # 0.1 H Myelocytes # 0.2 H Plasma Cells # 0.1 H (manual) Nucleated Red Blood Cells # Toxic Granulation 2+ Platelet Estimate NORMAL Giant Platelets 2 H Polychromasia 1+ Hypochromasia 1+ Poikilocytosis 1+ Sodium Level 134 L Potassium Level 3.6 Chloride Level 101 Carbon Dioxide Level 26 Anion Gap 7 Blood Urea Nitrogen 3 L Creatinine 0.33 L Est Glomerular > 60 Filtrat Rate mL/min Glucose Level 127 # Calcium Level 8.2 L Magnesium Level 1.8 Total Bilirubin 0.2 Direct Bilirubin 0.00 Indirect Bilirubin 0.2 Aspartate Amino 34 Transf (AST/SGOT) Alanine 22 Aminotransferase (AL T/SGPT) Alkaline Phosphatase 213 H Total Protein 5.9 L Albumin 2.7 L Globulin 3.20 Albumin/Globulin 0.84 Ratio Vancomycin Level 6.1 L Trough Test 06/11/18 07:45 Bedside Glucose 120 Medications Medication Current Medications Ondansetron HCl (Zofran Inj) 4 mg Q6H PRN IV NAUSEA AND/OR VOMITING; Start 06/09/18 at 00:30 Albuterol (Proventil 0.083% (Neb)) 2.5 mg Q2H RESP THERAPY PRN NEB SHORTNESS OF BREATH Last administered on 06/10/18 15:48; Admin Dose 2.5 MG; Start 06/09/18 at 00:30 Ipratropium [place] (Atrovent 0.02% (Neb)) 0.5 mg Q2H RESP THERAPY PRN NEB SHORTNESS OF BREATH Last administered on 06/10/18 15:48; Admin Dose 0.5 MG; Start 06/09/18 at 00:30 Acetaminophen (Tylenol Liquid) 650 mg Q6H PRN PO PAIN LEVEL 1-3 OR FEVER Last administered on 06/10/18 20:03; Admin Dose 650 MG; Start 06/09/18 at 00:30 Acetaminophen/ Hydrocodone Bitart ([place] (5/325)) 1 tab Q6H PRN PO PAIN LEVEL 4-6 Last administered on 06/10/18 13:40; Admin Dose 1 TAB; Start 06/09/18 at 00:30 Docusate Sodium (Colace) 100 mg Q12H PRN PO CONSTIPATION; Start 06/09/18 at 00:30 Bisacodyl (Dulcolax) 5 mg DAILY PRN PO CONSTIPATION; Start 06/09/18 at 00:30 Pantoprazole (Protonix Tab) 40 mg DAILY@06 PO Last administered on 06/11/18 0 5:56; Admin Dose 40 MG; Start 06/09/18 at 06:00 Heparin Sodium (Porcine) (Heparin (5000 Units/1ml)) 5,000 unit Q8 SC Last administered on 06/11/18 06:21; Admin Dose 5,000 UNIT; Start 06/09/18 at 06:00 Ceftriaxone Sodium 50 ml @ 100 mls/hr Q24H IVPB Last administered on 06/10/18 20:22; Admin Dose 100 MLS/HR; Start 06/09/18 at 20:00; Stop 06/16/18 at 19:59 Azithromycin 250 ml @ 250 mls/hr Q24H IVPB Last administered on 06/10/18at 20:28; Admin Dose 250 MLS/HR; Start 06/09/18 at 20:00; Stop 06/12/18 at 19:59 Diagnostic Test (Pha) (Accu-Chek) 1 ea 02 XX ; Start 06/10/18 at 02:00 Insulin Aspart (Novolog Insulin Pen) NOVOLOG *MILD* ALGORITHM WITH MEALS BEDTIME SC Last administered on 06/10/18at 17:30; Admin Dose 1 UNIT; Start 06/09/18 at 18:00 Miscellaneous Information 1 ea NOTE XX ; Start 06/09/18 at 14:30 Glucose (Glutose) 15 gm Q15M PRN PO DECREASED GLUCOSE; Start 06/09/18 at 14:30 Glucose (Glutose) 22.5 gm Q15M PRN PO DECREASED GLUCOSE; Start 06/09/18 at 14:30 Dextrose (D50w Syringe) 25 ml Q15M PRN IV DECREASED GLUCOSE; Start 06/09/18 at 14:30 Dextrose (D50w Syringe) 50 ml Q15M PRN IV DECREASED GLUCOSE; Start 06/09/18 at 14:30 Glucagon (Glucagen) 1 mg Q15M PRN IM DECREASED GLUCOSE; Start 06/09/18 at 14:30 Glucose (Glutose) 15 gm Q15M PRN BUCCAL DECREASED GLUCOSE; Start 06/09/18 at 14:30 Vancomycin HCl (Vanco Iv Per Pharmacy) VANCOMYCIN PER PHARMACY PER PROTOCOL XX ; Start 06/10/18 at 06:00 Insulin Aspart (Novolog Insulin Pen) 7 unit WITH MEALS SC Last administered on 06/11/18at 08:48; Admin Dose 7 UNIT; Start 06/10/18 at 12:00 Insulin Glargine (Lantus) 20 units DAILY@0800 SC Last administered on 06/11/18at 08:48; Admin Dose 20 UNITS; Start 06/11/18 at 08:00 Metformin HCl (Glucophage) 850 mg BID WITH MEALS NGT Last administered on 06/11/18at 07:46; Admin Dose 850 MG; Start 06/10/18 at 18:00 Sucralfate (Carafate Susp) 1 gm QID PO Last administered on 06/11/18at 07:46; Admin Dose 1 GM; Start 06/10/18 at 17:00; Stop 06/12/18 at 16:59 Tiotropium [place] (Spiriva) 1 inh DAILY INH Last administered on 06/10/18at 15:42; Admin Dose 1 INH; Start 06/10/18 at 14:30 Fluticasone/ Vilanterol (Breo Ellipta 100-25 Mcg Inh) 1 inh DAILY INH Last administered on 06/10/18at 15:42; Admin Dose 1 INH; Start 06/10/18 at 14:30 Montelukast Sodium (Singulair) 10 mg HS PO Last administered on 06/10/18at 21:29; Admin Dose 10 MG; Start 06/10/18 at 21:00 Vancomycin HCl 1.25 gm/Sodium Chloride 250 ml @ 83.333 mls/ hr Q8H IVPB ; Start 06/11/18 at 14:00 Doxycycline Hyclate (Vibramycin) 100 mg BID PO ; Start 06/11/18 at 21:00 STEVE AGGARWAL MD Jun 11, 2018 11:19
[2018-06-11] MEDS: TIOTROPIUM 18 MCG CAPSULE INHA DEV INH SCH (11:39)
[2018-06-11] MEDS: FLUTICASONE/VILANTEROL 100-25 INH SCH (11:40)
[2018-06-11] MEDS: SOD FERRIC GLUC COMPLX 125 MG in SOD CHLORIDE 0.9% 100 ML IVPB SCH (12:00)
--- NOTE | 2018-06-11 12:51 | CONS ---
Assessment/Plan Assessment/Plan Hospital Course (Demo Recall) 48 y/o F with type 2 DM diagnosed about 5 years ago presented to the ED with body aches, fever and productive cough for the past 3 days. Workup here showed fever, tachycardia and imaging showed multiple areas of consolidation in different lobes of the lung. Endocrine consulted for management of T2DM. Type 2 DM -FS are now at goal -continue lantus 20 units in AM -continue novolog 7 units TIDAC -continue mild dose correction scale with meals and HS -check FS AC and HS -will follow with you and adjust regimen accordingly Consultation Date/Type/Reason Admit Date/Time Jun 08, 2018 at 23:53 Initial Consult Date Date/Time of Note DATE: 06/11/18 TIME: 12:51 24 HR Interval Summary Free Text/Dictation Patient seen and examined at bedside. She still has intermittent fever and pro ductive cough associated with pleuritic chest pain Exam/Review of Systems Exam Vitals Vital Signs Date Temp Pulse Resp B/P (MAP) Pulse Ox O2 O2 Flow FiO2 Time Delivery Rate 06/11/18 120 11:57 06/11/18 99.5 19 143/94 96 11:16 (110) 06/11/18 Nasal 2.0 11:00 Cannula Intake and Output 06/10/18 06/10/18 06/11/18 1515:00 23:00 07:00 IntakeIntake Total 1500 ml 1350 ml BalanceBalance 1500 ml 1350 ml Exam General: Resting in bed. Skin appropriate for ethnicity Eye: Extraocular movements are intact, Normal conjunctiva. HENT: Normocephalic, atraumatic. Respiratory: Respirations are labored, Breath sounds are coarse, Symmetrical chest wall expansion. Cardiovascular: S1, S2. Tachycardic. No LE edema Gastrointestinal: Soft, Non-tender, Non-distended, Normal bowel sounds. Integumentary: Warm to touch. Neurologic: Alert, Oriented. Cognition and Speech: Speech clear and coherent, Functional cognition intact. Psychiatric: Cooperative. Results Result Diagram: 06/11/1851706/11/1818 Results 24hrs Laboratory Tests Test 06/10/18 17:07 06/10/18 21:28 06/11/18 05:18 06/11/18 07:45 Bedside Glucose 169 160 120 White Blood Count 14.2 H Red Blood Count 3.55 L Hemoglobin 9.7 L Hematocrit 29.7 L Mean Corpuscular 83.7 Volume Mean Corpuscular 27.3 L Hemoglobin Mean Corpuscular 32.7 Hemoglobin Concent Red Cell 15.0 H Distribution Width Platelet Count 317 # Mean Platelet Volume 11.3 H Immature 2.900 H Granulocytes % Neutrophils % Segmented 48 Neutrophils % (Manual) Band Neutrophils % 25 H (Manual) Lymphocytes % Lymphocytes % 14 L (Manual) Monocytes % Monocytes % (Manual) 8 Eosinophils % Eosinophils % 1 (Manual) Basophils % Metamyelocytes % 1 H (manual) Myelocytes % 2 H (Manual) Plasma Cells % 1 (manual) Nucleated Red Blood 0.0 Cells % Immature 0.410 H Granulocytes # Neutrophils # Neutrophils # 7.3 (Manual) Band Neutrophils # 3.5 H Lymphocytes (Manual) 1.9 Lymphocytes # Monocytes # Monocytes # (Manual) 1.1 H Eosinophils # Basophils # Metamyelocytes # 0.1 H Myelocytes # 0.2 H Plasma Cells # 0.1 H (manual) Nucleated Red Blood Cells # Toxic Granulation 2+ Platelet Estimate NORMAL Giant Platelets 2 H Polychromasia 1+ Hypochromasia 1+ Poikilocytosis 1+ Sodium Level 134 L Potassium Level 3.6 Chloride Level 101 Carbon Dioxide Level 26 Anion Gap 7 Blood Urea Nitrogen 3 L Creatinine 0.33 L Est Glomerular > 60 Filtrat Rate mL/min Glucose Level 127 # Calcium Level 8.2 L Magnesium Level 1.8 Total Bilirubin 0.2 Direct Bilirubin 0.00 Indirect Bilirubin 0.2 Aspartate Amino 34 Transf (AST/SGOT) Alanine 22 Aminotransferase (AL T/SGPT) Alkaline Phosphatase 213 H Total Protein 5.9 L Albumin 2.7 L Globulin 3.20 Albumin/Globulin 0.84 Ratio Vancomycin Level 6.1 L Trough Test 06/11/18 11:41 Bedside Glucose 150 Medications Medication Current Medications Ondansetron HCl (Zofran Inj) 4 mg Q6H PRN IV NAUSEA AND/OR VOMITING; Start 06/09/18 at 00:30 Albuterol (Proventil 0.083% (Neb)) 2.5 mg Q2H RESP THERAPY PRN NEB SHORTNESS OF BREATH Last administered on 06/10/18at 15:48; Admin Dose 2.5 MG; Start 06/09/18 at 00:30 Ipratropium [place] (Atrovent 0.02% (Neb)) 0.5 mg Q2H RESP THERAPY PRN NEB SHORTNESS OF BREATH Last administered on 06/10/18 15:48; Admin Dose 0.5 MG; Start 06/09/18 at 00:30 Acetaminophen (Tylenol Liquid) 650 mg Q6H PRN PO PAIN LEVEL 1-3 OR FEVER Last administered on 06/10/18 20:03; Admin Dose 650 MG; Start 06/09/18 at 00:30 Acetaminophen/ Hydrocodone Bitart ([place] (5/325)) 1 tab Q6H PRN PO PAIN LEVEL 4 -6 Last administered on 06/10/18 13:40; Admin Dose 1 TAB; Start 06/09/18 at 00:30 Docusate Sodium (Colace) 100 mg Q12H PRN PO CONSTIPATION; Start 06/09/18 at 00:30 Bisacodyl (Dulcolax) 5 mg DAILY PRN PO CONSTIPATION; Start 06/09/18 at 00:30 Pantoprazole (Protonix Tab) 40 mg DAILY@06 PO Last administered on 06/11/18 05:56; Admin Dose 40 MG; Start 06/09/18 at 06:00 Heparin Sodium (Porcine) (Heparin (5000 Units/1ml)) 5,000 unit Q8 SC Last administered on 06/11/18 06:21; Admin Dose 5,000 UNIT; Start 06/09/18 at 06:00 Ceftriaxone Sodium 50 ml @ 100 mls/hr Q24H IVPB Last administered on 06/10/18 20:22; Admin Dose 100 MLS/HR; Start 06/09/18 at 20:00; Stop 06/16/18 at 19:59 Azithromycin 250 ml @ 250 mls/hr Q24H IVPB Last administered on 06/10/18 20:28; Admin Dose 250 MLS/HR; Start 06/09/18 at 20:00; Stop 06/12/18 at 19:59 Diagnostic Test (Pha) (Accu-Chek) 1 ea 02 XX ; Start 06/10/18 at 02:00 Insulin Aspart (Novolog Insulin Pen) NOVOLOG *MILD* ALGORITHM WITH MEALS BEDTIME SC Last administered on 06/11/18 11:52; Admin Dose 1 UNIT; Start 06/09/18 at 18:00 Miscellaneous Information 1 ea NOTE XX ; Start 06/09/18 at 14:30 Glucose (Glutose) 15 gm Q15M PRN PO DECREASED GLUCOSE; Start 06/09/18 at 14:30 Glucose (Glutose) 22.5 gm Q15M PRN PO DECREASED GLUCOSE; Start 06/09/18 at 1 4:30 Dextrose (D50w Syringe) 25 ml Q15M PRN IV DECREASED GLUCOSE; Start 06/09/18 at 14:30 Dextrose (D50w Syringe) 50 ml Q15M PRN IV DECREASED GLUCOSE; Start 06/09/18 at 14:30 Glucagon (Glucagen) 1 mg Q15M PRN IM DECREASED GLUCOSE; Start 06/09/18 at 14:30 Glucose (Glutose) 15 gm Q15M PRN BUCCAL DECREASED GLUCOSE; Start 06/09/18 at 14:30 Vancomycin HCl (Vanco Iv Per Pharmacy) VANCOMYCIN PER PHARMACY PER PROTOCOL XX ; Start 06/10/18 at 06:00 Insulin Aspart (Novolog Insulin Pen) 7 unit WITH MEALS SC Last administered on 06/11/18 11:52; Admin Dose 7 UNIT; Start 06/10/18 at 12:00 Insulin Glargine (Lantus) 20 units DAILY@0800 SC Last administered on 06/11/18 08:48; Admin Dose 20 UNITS; Start 06/11/18 at 08:00 Metformin HCl (Glucophage) 850 mg BID WITH MEALS NGT Last administered on 05/20 07:46; Admin Dose 850 MG; Start 06/10/18 at 18:00 Sucralfate (Carafate Susp) 1 gm QID PO Last administered on 06/11/18 12:00; Admin Dose 1 GM; Start 06/10/18 at 17:00; Stop 06/12/18 at 16:59 Tiotropium [place] (Spiriva) 1 inh DAILY INH Last administered on 06/11/18 11:39; Admin Dose 1 INH; Start 06/10/18 at 14:30 Fluticasone/ Vilanterol (Breo Ellipta 100-25 Mcg Inh) 1 inh DAILY INH Last administered on 06/11/18 11:40; Admin Dose 1 INH; Start 06/10/18 at 14:30 Montelukast Sodium (Singulair) 10 mg HS PO Last administered on 06/10/18at 21:29; Admin Dose 10 MG; Start 06/10/18 at 21:00 Vancomycin HCl 1.25 gm/Sodium Chloride 250 ml @ 83.333 mls/ hr Q8H IVPB ; Start 06/11/18 at 14:00 Doxycycline Hyclate (Vibramycin) 100 mg BID PO ; Start 06/11/18 at 21:00 Guaifenesin/ Dextromethorphan (Robitussin Dm Liquid Cup) 5 ml Q4H PRN PO COUGH; Start 06/11/18 at 11:30 Ferric Sodium Gluconate Complex 125 mg/Sodium Chloride 110 ml @ 110 mls/hr DAILY@1300 IVPB Last administered on 06/11/18at 12:00; Admin Dose 110 MLS/HR; Start 06/11/18 at 13:00; Stop 06/15/18 at 13:59 FERDINAND ROBIN MD Jun 11, 2018 12:51
[2018-06-11] MEDS: VANCOMYCIN HCL 1.25 GM in SOD CHLORIDE 0.9% 250 ML IVPB SCH (15:11)
--- NOTE | 2018-06-11 16:16 | RADRPT ---
Echocardiogram Report Patient Name: KATHRIN ZHENGPatient ID: [id number] : 1975 (42y 5m)Study Date: 06/11/2018 12:45:17 PM Gender: FAccession #: [id number] Tech: Gunjan Menjivar [facility] Location: [facility] Ref.Physician: STEVE AGGARWAL Height(Cm): BSA: Weight(Kg): Quality: AdequateAccount #: Procedures: Echocardiographic Report: Transthoracic echocardiogram with complete 2D, M-Mode, and doppler examination. Indications: MRSA bacteremia. Measurements: 2D/M Mode Doppler Measurement Value Normal Range Measurement Value Normal Range LVIDd 2D 3.0 [ 3.8 - 5.2 ] cm AV Peak Quintin 2.1 [ 100.0 - 170.0 ] cm/se c LVIDs 2D 2.0 [ 2.2 - 3.5 ] cm AV Peak PG 17.0 [ 2.0 - 9.0 ] mmHg LVPWd 2D 0.8 [ 0.6 - 0.9 ] cm LVOT Peak Quintin 1.4 [ 70.0 - 110.0 ] cm/sec IVSd 2D 0.6 [ 0.6 - 0.9 ] cm LVOT Peak PG 8.0 [ 2.0 - 6.0 ] mmHg AoR Diam 2D 2.4 [ 2.3 - 3.1 ] cm MV E Peak Quintin 1.0 [ 60.0 - 130.0 ] cm/sec EDV 2D 35.0 [ 46.0 - 106.0 ] ml MV A Peak Quintin 0.6 [ 100.0 - 120.0 ] cm/se c ESV 2D 12.6 [ 14.0 - 42.0 ] ml MV E/A 1.8 [ 0.8 - 1.5 ] ratio EF 2D 64.0 [ 54.0 - 74.0 ] percent MV PHT 45.0 [ 20.0 - 100.0 ] msec LA Dimen 2D 2.6 [ 2.7 - 3.8 ] cm MV Decel Time 155 [ 104 - 258 ] msec MV Decel [place] 7 Lat E` Quintin 0.1 [ 10.0 - 15.0 ] cm/sec Lateral E/E` 8.5 [ 1.0 - 2.0 ] ratio Med E` Quintin 0.1 cm/sec MV E/A 1.8 [ 0.8 - 1.5 ] ratio MVA PHT 4.9 [ 2.0 - 4.0 ] cm2 TR Peak Quintin 2.5 [ 100.0 - 280.0 ] cm/se c TR Peak PG 24.0 mmHg Findings: Left Ventricle: Normal left ventricular systolic function. Normal left ventricular cavity size. Normal left ventricular wall thickness. Ejection fraction is visually estimated at 65 %. Right Ventricle: Normal right ventricular size. Normal right ventricular systolic function. Left Atrium: The left atrium is normal in size. Right Atrium: The right atrium is normal in size. Atrial Septum: Normal atrial septum. Ventricular septum: Normal/intact ventricular septum. Mitral Valve: Normal appearance and function of the mitral valve with trace physiologic regurgitation. Aortic Valve: Normal appearance of the aortic valve. No significant aortic stenosis or insufficiency. Tricuspid Valve: Normal appearance of the tricuspid valve. There is trace tricuspid regurgitation. Pulmonic Valve: Normal pulmonic valve appearance. No evidence of pulmonic regurgitation. Pericardium: Normal pericardium with no significant pericardial effusion. Aorta: Normal aortic root. IVC: Normal size and normal respiratory collapse consistent with normal right atrial pressure. Pulmonary Artery: Normal pulmonary artery size. Conclusions: Normal left ventricular systolic function. Normal left ventricular cavity size. Normal left ventricular wall thickness. Ejection fraction is visually estimated at 65 %. Normal right ventricular size. Normal right ventricular systolic function. The left atrium is normal in size. The right atrium is normal in size. No significant valvular stenosis or regurgitation seen. Normal pericardium with no significant pericardial effusion. Electronically Signed By: Nathan Gilmore 2018-06-11 16:15:49 PDT
[2018-06-11] MEDS: HYDROCODONE/APAP (5/325) TAB PO PRN (18:23)
[2018-06-11] MEDS: CEFTRIAXONE 1 GM/50 ML (PMX) 50 ML IVPB SCH (22:00)
[2018-06-11] MEDS: MONTELUKAST 10 MG TAB PO SCH (22:06)
[2018-06-11] MEDS: DOXYCYCLINE 100 MG TAB PO SCH (22:06)
[2018-06-11] MEDS: AZITHROMYCIN 500MG/NS (PMX) 250 ML IVPB SCH (23:05)
[2018-06-12] VITALS (10 sets, daily range): BP systolic 118–139; BP diastolic 73–89; PULSE 83–124; RESP 18–20
[2018-06-12] MEDS: VANCOMYCIN HCL 1.25 GM in SOD CHLORIDE 0.9% 250 ML IVPB SCH ×4 (00:21→21:55)
[2018-06-12] MEDS: ACCU-CHEK XX SCH (02:00)
[2018-06-12] MEDS: GUAIFENESIN/DM 5ML CUP PO PRN ×2 (03:51→21:55)
[2018-06-12] MEDS ORDERED: SOD CHLORIDE 0.9% 1,000 ML IV ONE (05:30)
[2018-06-12] MEDS: PANTOPRAZOLE (EC) 40 MG TAB PO SCH (05:52)
[2018-06-12] MEDS ORDERED: LORAZEPAM 2 MG INJ IV ONE (06:00)
[2018-06-12] MEDS: HEPARIN 5,000 UNIT/1 ML VIAL SC SCH (06:10)
[2018-06-12] MEDS: INSULIN ASPART [NOVOLOG] 3 ML PEN SC SCH ×6 (08:00→20:37)
[2018-06-12] MEDS: INSULIN GLARGINE [LANTus] (100 UNITS/ML) SYG SC SCH (08:10)
[2018-06-12] MEDS: FLUTICASONE/VILANTEROL 100-25 INH SCH (10:15)
[2018-06-12] MEDS: TIOTROPIUM 18 MCG CAPSULE INHA DEV INH SCH (10:16)
[2018-06-12] MEDS: DOXYCYCLINE 100 MG TAB PO SCH ×2 (10:16→20:29)
[2018-06-12] MEDS: SUCRALFATE (100 MG/ML) 10ML CUP PO SCH ×2 (10:16→13:32)
--- NOTE | 2018-06-12 10:56 | PN ---
Date/Time of Note Date/Time of Note DATE: 06/12/18 TIME: 10:55 Assessment/Plan VTE Prophylaxis Risk score (from Ns)>0 risk: 1 SCD applied (from Ns): No SCD contraindicated: other Pharmacological prophylaxis: NA/contraindicated Pharm contraindication: low risk/ambulating, anticoag not tolerated Lines/Catheters IV C[facility]ter Type [facility]from [facility] Peripheral IV Urinary Cath still in place: No Assessment/Plan Hospital Course SUBJECTIVE: Lying in bed, no acute distress. OBJECTIVE: Vital signs-see below PHYSICAL EXAM: Constitutional: Well-developed, adequately built, lying in bed comfortably. Psych: nl mood/affect, no complaints Head: atraumatic, normocephalic Eyes: nl conjunctiva, nl sclera ENMT: mucosa pink and moist, nl external ears & nose Neck: non-tender, supple Respiratory: clear to auscultation, normal air movement Cardiovascular: nl pulses, regular rate and rhythm Gastrointestinal: non-tender, soft, bowel sounds active in all 4 quadrants. Musculoskeletal/extremities: nl extremities to inspection, motor strength equal bilaterally, no focal deficit. Normal pulses,no cyanosis, no edema. Neurological: Alert oriented 3,nl speech, nl strength Skin: nl turgor ASSESSMENT/PLAN:42-year-old female who is also homeless, with a history of type 2 diabetes, noncompliance, admitted with fevers/cough/body aches.. also found to have DKA and sepsis with pneumonia. 1. Sepsis with MRSA bacteremia -Most likely culprit respiratory/pneumonia. -Resolving nicely. -Continue vancomycin -Follow-up repeat blood cultures. 2. Poorly controlled diabetes -DKA resolved. Blood sugar stabilizing. Follow-up endocrinology recommendation on insulin regimen. -Diabetic education has been requested 3. Community-acquired pneumonia. -On appropriate agents. 4. 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 History of meth abuse -Patient states last use was 2 weeks ago. Counseled on cessation. 6. Tobacco use -Cessation advised. 7. Iron Deficient anemia. -She is currently receiving IV iron treatment. -H&H stable. DVT prophylaxis: SCDs/ambulation. Due to drop in hemoglobin, I will discontinue subcutaneous heparin. PUD prophylaxis: Not indicated CODE STATUS: Full code Diet: Carbohydrate controlled. Disposition: Continue current management. Follow-up repeat cultures and discharge planning pending repeat culture status. Patient was seen in collaboration with Dr. Pena. Result Diagram: 06/11/18 0518 06/11/18 0518 Results 24hrs Laboratory Tests Test 06/11/18 11:41 06/11/18 16:57 06/11/18 22:17 06/12/18 08:03 Bedside Glucose 150 161 152 186 Exam/Review of Systems Exam Vitals Vital Signs Date Temp Pulse Resp B/P (MAP) Pulse Ox O2 O2 Flow FiO2 Time Delivery Rate 06/12/18 Nasal 2.0 09:34 Cannula 06/12/18 119 08:36 06/12/18 98.6 20 133/80 96 07:35 (97) Intake and Output 06/11/18 06/11/18 06/12/18 1515:00 23:00 07:00 IntakeIntake Total 1250 ml 2000 ml BalanceBalance 1250 ml 2000 ml Results Results 24hrs Laboratory Tests Test 06/11/18 11:41 06/11/18 16:57 06/11/18 22:17 06/12/18 08:03 Bedside Glucose 150 161 152 186 Medications Medication Current Medications Ondansetron HCl (Zofran Inj) 4 mg Q6H PRN IV NAUSEA AND/OR VOMITING; Start 06/09/18 at 00:30 Albuterol (Proventil 0.083% (Neb)) 2.5 mg Q2H RESP THERAPY PRN NEB SHORTNESS OF BREATH Last administered on 06/10/18 15:48; Admin Dose 2.5 MG; Start 06/09/18 at 00:30 Ipratropium [place] (Atrovent 0.02% (Neb)) 0.5 mg Q2H RESP THERAPY PRN NEB SHORTNESS OF BREATH Last administered on 06/10/18 15:48; Admin Dose 0.5 MG; Start 06/09/18 at 00:30 Acetaminophen (Tylenol Liquid) 650 mg Q6H PRN PO PAIN LEVEL 1-3 OR FEVER Last administered on 06/10/18 20:03; Admin Dose 650 MG; Start 06/09/18 at 00:30 Acetaminophen/ Hydrocodone Bitart ([place] (5/325)) 1 tab Q6H PRN PO PAIN LEVEL 4-6 Last administered on 06/11/18 18:23; Admin Dose 1 TAB; Start 06/09/18 at 00:30 Docusate Sodium (Colace) 100 mg Q12H PRN PO CONSTIPATION; Start 06/09/18 at 00:30 Bisacodyl (Dulcolax) 5 mg DAILY PRN PO CONSTIPATION; Start 06/09/18 at 00:30 Pantoprazole (Protonix Tab) 40 mg DAILY@06 PO Last administered on 06/12/18at 05:52; Admin Dose 40 MG; Start 06/09/18 at 06:00 Heparin Sodium (Porcine) (Heparin (5000 Units/1ml)) 5,000 unit Q8 SC Last administered on 06/12/18at 06:10; Admin Dose 5,000 UNIT; Start 06/09/18 at 06:00 Ceftriaxone Sodium 50 ml @ 100 mls/hr Q24H IVPB Last administered on 06/11/18at 22:00; Admin Dose 100 MLS/HR; Start 06/09/18 at 20:00; Stop 06/16/18 at 19:59 Azithromycin 250 ml @ 250 mls/hr Q24H IVPB Last administered on 06/11/18at 23:05; Admin Dose 250 MLS/HR; Start 06/09/18 at 20:00; Stop 06/12/18 at 19:59 Diagnostic Test (Pha) (Accu-Chek) 1 ea 02 XX ; Start 06/10/18 at 02:00 Insulin Aspart (Novolog Insulin Pen) NOVOLOG *MILD* ALGORITHM WITH MEALS BEDTIME SC Last administered on 06/12/18at 08:21; Admin Dose 2 UNIT; Start 06/09/18 at 18:00 Miscellaneous Information 1 ea NOTE XX ; Start 06/09/18 at 14:30 Glucose (Glutose) 15 gm Q15M PRN PO DECREASED GLUCOSE; Start 06/09/18 at 14:30 Glucose (Glutose) 22.5 gm Q15M PRN PO DECREASED GLUCOSE; Start 06/09/18 at 14:30 Dextrose (D50w Syringe) 25 ml Q15M PRN IV DECREASED GLUCOSE; Start 06/09/18 at 14:30 Dextrose (D50w Syringe) 50 ml Q15M PRN IV DECREASED GLUCOSE; Start 06/09/18 at 14:30 Glucagon (Glucagen) 1 mg Q15M PRN IM DECREASED GLUCOSE; Start 06/09/18 at 14:30 Glucose (Glutose) 15 gm Q15M PRN BUCCAL DECREASED GLUCOSE; Start 06/09/18 at 14:30 Vancomycin HCl (Vanco Iv Per Pharmacy) VANCOMYCIN PER PHARMACY PER PROTOCOL XX ; Start 06/10/18 at 06:00 Insulin Aspart (Novolog Insulin Pen) 7 unit WITH MEALS SC Last administered on 06/11/18 17:12; Admin Dose 7 UNIT; Start 06/10/18 at 12:00 Insulin Glargine (Lantus) 20 units DAILY@0800 SC Last administered on 06/12/18 08:10; Admin Dose 20 UNITS; Start 06/11/18 at 08:00 Sucralfate (Carafate Susp) 1 gm QID PO Last administered on 06/12/18 10:16; Admin Dose 1 GM; Start 06/10/18 at 17:00; Stop 06/12/18 at 16:59 Tiotropium [place] (Spiriva) 1 inh DAILY INH Last administered on 06/12/18 10:16; Admin Dose 1 INH; Start 06/10/18 at 14:30 Fluticasone/ Vilanterol (Breo Ellipta 100-25 Mcg Inh) 1 inh DAILY INH Last administered on 06/12/18 10:15; Admin Dose 1 INH; Start 06/10/18 at 14:30 Montelukast Sodium (Singulair) 10 mg HS PO Last administered on 06/11/18 22:06; Admin Dose 10 MG; Start 06/10/18 at 21:00 Vancomycin HCl 1.25 gm/Sodium Chloride 250 ml @ 83.333 mls/ hr Q8H IVPB Last administered on 06/12/18 07:37; Admin Dose 83.333 MLS/HR; Start 06/11/18 at 14:00 Doxycycline Hyclate (Vibramycin) 100 mg BID PO Last administered on 06/12/18 10:16; Admin Dose 100 MG; Start 06/11/18 at 21:00 Guaifenesin/ Dextromethorphan (Robitussin Dm Liquid Cup) 5 ml Q4H PRN PO COUGH Last administered on 06/12/18 03:51; Admin Dose 5 ML; Start 06/11/18 at 11:30 Ferric Sodium Gluconate Complex 125 mg/Sodium Chloride 110 ml @ 110 mls/hr DAILY@1300 IVPB Last administered on 3/24/19at 12:00; Admin Dose 110 MLS/HR; Start 06/11/18 at 13:00; Stop 06/15/18 at 13:59 JUSTINE DIAZ NP Jun 12, 2018 10:56
--- NOTE | 2018-06-12 13:50 | CONS ---
Assessment/Plan Assessment/Plan Problems: (1) Diabetes mellitus type 2 in nonobese Status: Chronic Comment: We did try and start moving the medicine regimen over toward what would be an outpatient regimen. This will require slow careful adjustment and we may have a little bit of hyperglycemia temporarily. (2) Pneumonia Status: Acute Comment: As per primary team. Qualifiers: Pneumonia type: due to unspecified organism Laterality: left Lung location: upper lobe of lung Qualified Codes: J18.1 - Lobar pneumonia, unspecified organism (3) MRSA bacteremia Status: Acute Comment: On aggressive antibiotic therapy, duration of treatment as per primary team (4) Asthma, mild persistent Status: Chronic Comment: Adequate control Qualifiers: Asthma complication type: with acute exacerbation Qualified Codes: J45.31 - Mild persistent asthma with (acute) exacerbation (5) Anemia Status: Acute Comment: Receiving IV iron supplementation Qualifiers: Anemia type: iron deficiency Iron deficiency anemia type: chronic blood loss Qualified Codes: D50.0 - Iron deficiency anemia secondary to blood loss (chronic) Consultation Date/Type/Reason Admit Date/Time Jun 08, 2018 at 23:53 Initial Consult Date June 09, 2018 Type of Consult Endocrinology Reason for Consultation Diabetes mellitus type 2 out of control; MRSA sepsis; multifocal pneumonia; iron deficiency anemia Requesting Provider: ARIS ANDERSEN Date/Time of Note DATE: 06/12/18 TIME: 13:47 24 HR Interval Summary Free Text/Dictation Patient reports she is feeling a little bit better today regarding her respiratory status. Still with significant issues about her ability to manage a complicated regimen or refrigerate insulin as an outpatient Constitutional: no complaints Exam/Review of Systems Exam Vitals Vital Signs Date Temp Pulse Resp B/P (MAP) Pulse Ox O2 O2 Flow FiO2 Time Delivery Rate 06/12/18 118 12:30 06/12/18 98.0 18 129/85 98 11:33 (100) 06/12/18 Nasal 2.0 09:34 Cannula Intake and Output 06/11/18 06/11/18 06/12/18 1515:00 23:00 07:00 IntakeIntake Total 1250 ml 2000 ml BalanceBalance 1250 ml 2000 ml Constitutional: alert, oriented Respiratory: crackles/rales Cardiovascular: regular rate and rhythm, nl pulses Results Result Diagram: 06/11/1818 06/11/1818 Results 24hrs Laboratory Tests Test 06/11/18 16:57 06/11/18 22:17 06/12/18 08:03 06/12/18 12:02 Bedside Glucose 161 152 186 233 H Medications Medication Current Medications Ondansetron HCl (Zofran Inj) 4 mg Q6H PRN IV NAUSEA AND/OR VOMITING; Start 06/09/18 at 00:30 Albuterol (Proventil 0.083% (Neb)) 2.5 mg Q2H RESP THERAPY PRN NEB SHORTNESS OF BREATH Last administered on 06/10/18 15:48; Admin Dose 2.5 MG; Start 06/09/18 at 00:30 Ipratropium [place] (Atrovent 0.02% (Neb)) 0.5 mg Q2H RESP THERAPY PRN NEB SHOR TNESS OF BREATH Last administered on 06/10/18 15:48; Admin Dose 0.5 MG; Start 06/09/18 at 00:30 Acetaminophen (Tylenol Liquid) 650 mg Q6H PRN PO PAIN LEVEL 1-3 OR FEVER Last administered on 06/10/18 20:03; Admin Dose 650 MG; Start 06/09/18 at 00:30 Acetaminophen/ Hydrocodone Bitart ([place] (5/325)) 1 tab Q6H PRN PO PAIN LEVEL 4-6 Last administered on 06/11/18 18:23; Admin Dose 1 TAB; Start 06/09/18 at 00:30 Docusate Sodium (Colace) 100 mg Q12H PRN PO CONSTIPATION; Start 06/09/18 at 00:30 Bisacodyl (Dulcolax) 5 mg DAILY PRN PO CONSTIPATION; Start 06/09/18 at 00:30 Pantoprazole (Protonix Tab) 40 mg DAILY@06 PO Last administered on 06/12/18 05:52; Admin Dose 40 MG; Start 06/09/18 at 06:00 Ceftriaxone Sodium 50 ml @ 100 mls/hr Q24H IVPB Last administered on 06/11/18 22:00; Admin Dose 100 MLS/HR; Start 06/09/18 at 20:00; Stop 06/16/18 at 19:59 Azithromycin 250 ml @ 250 mls/hr Q24H IVPB Last administered on 06/11/18at 23:05; Admin Dose 250 MLS/HR; Start 06/09/18 at 20:00; Stop 06/12/18 at 19:59 Diagnostic Test (Pha) (Accu-Chek) 1 ea 02 XX ; Start 06/10/18 at 02:00 Insulin Aspart (Novolog Insulin Pen) NOVOLOG *MILD* ALGORITHM WITH MEALS BEDTIME SC Last administered on 06/12/18at 12:06; Admin Dose 3 UNIT; Start 06/09/18 at 18:00 Miscellaneous Information 1 ea NOTE XX ; Start 06/09/18 at 14:30 Glucose (Glutose) 15 gm Q15M PRN PO DECREASED GLUCOSE; Start 06/09/18 at 14:30 Glucose (Glutose) 22.5 gm Q15M PRN PO DECREASED GLUCOSE; Start 06/09/18 at 14:30 Dextrose (D50w Syringe) 25 ml Q15M PRN IV DECREASED GLUCOSE; Start 06/09/18 at 14:30 Dextrose (D50w Syringe) 50 ml Q15M PRN IV DECREASED GLUCOSE; Start 06/09/18 at 14:30 Glucagon (Glucagen) 1 mg Q15M PRN IM DECREASED GLUCOSE; Start 06/09/18 at 14:30 Glucose (Glutose) 15 gm Q15M PRN BUCCAL DECREASED GLUCOSE; Start 06/09/18 at 14:30 Vancomycin HCl (Vanco Iv Per Pharmacy) VANCOMYCIN PER PHARMACY PER PROTOCOL XX ; Start 06/10/18 at 06:00 Sucralfate (Carafate Susp) 1 gm QID PO Last administered on 06/12/18at 13:32; Admin Dose 1 GM; Start 06/10/18 at 17:00; Stop 06/12/18 at 16:59 Tiotropium [place] (Spiriva) 1 inh DAILY INH Last administered on 06/12/18at 10:16; Admin Dose 1 INH; Start 06/10/18 at 14:30 Fluticasone/ Vilanterol (Breo Ellipta 100-25 Mcg Inh) 1 inh DAILY INH Last administered on 06/12/18at 10:15; Admin Dose 1 INH; Start 06/10/18 at 14:30 Montelukast Sodium (Singulair) 10 mg HS PO Last administered on 06/11/18at 22:06; Admin Dose 10 MG; Start 06/10/18 at 21:00 Vancomycin HCl 1.25 gm/Sodium Chloride 250 ml @ 83.333 mls/ hr Q8H IVPB Last administered on 06/12/18at 07:37; Admin Dose 83.333 MLS/HR; Start 06/11/18 at 14:00 Doxycycline Hyclate (Vibramycin) 100 mg BID PO Last administered on 06/12/18at 10:16; Admin Dose 100 MG; Start 06/11/18 at 21:00; Stop 06/21/18 at 20:59 Guaifenesin/ Dextromethorphan (Robitussin Dm Liquid Cup) 5 ml Q4H PRN PO COUGH Last administered on 06/12/18at 03:51; Admin Dose 5 ML; Start 06/11/18 at 11:30 Ferric Sodium Gluconate Complex 125 mg/Sodium Chloride 110 ml @ 110 mls/hr DAILY@1300 IVPB Last administered on 06/11/18at 12:00; Admin Dose 110 MLS/HR; Start 06/11/18 at 13:00; Stop 06/15/18 at 13:59 Miscellaneous Information (*Rx Drug Level Order Reminder*) VANCOMYCIN TROUGH AT 2100 ONCE ONCE XX ; Start 06/12/18 at 21:00; Stop 06/12/18 at 21:01 Insulin Glargine (Lantus) 15 units DAILY@0800 SC ; Start 06/13/18 at 08:00; Status UNV Glimepiride (Amaryl) 2 mg ONCE ONCE PO ; Start 06/12/18 at 14:00; Stop 06/12/18 at 14:01; Status UNV Glimepiride (Amaryl) 2 mg AC BREAKFAST DINNER PO ; Start 06/13/18 at 06:00; Status STEVE ADAMS MD Jun 12, 2018 13:50
[2018-06-12] MEDS: SOD FERRIC GLUC COMPLX 125 MG in SOD CHLORIDE 0.9% 100 ML IVPB SCH (14:11)
[2018-06-12] MEDS ORDERED: GLIMEPIRIDE 2 MG TAB PO ONE (14:30)
[2018-06-12] MEDS: MONTELUKAST 10 MG TAB PO SCH (20:29)
[2018-06-12] MEDS: CEFTRIAXONE 1 GM/50 ML (PMX) 50 ML IVPB SCH (20:29)
[2018-06-12] MEDS: HYDROCODONE/APAP (5/325) TAB PO PRN (21:56)
[2018-06-13] VITALS (11 sets, daily range): BP systolic 120–135; BP diastolic 65–85; PULSE 87–115; RESP 18
[2018-06-13] MEDS: ACCU-CHEK XX SCH (02:00)
[2018-06-13] MEDS: PANTOPRAZOLE (EC) 40 MG TAB PO SCH (05:41)
[2018-06-13] MEDS: VANCOMYCIN HCL 1.25 GM in SOD CHLORIDE 0.9% 250 ML IVPB SCH ×3 (05:42→22:49)
[2018-06-13] MEDS: GLIMEPIRIDE 2 MG TAB PO SCH ×3 (07:00→17:35)
[2018-06-13] MEDS ORDERED: INSULIN GLARGINE [LANTus] (100 UNITS/ML) SYG SC SCH (08:00)
[2018-06-13] MEDS: INSULIN ASPART [NOVOLOG] 3 ML PEN SC SCH ×4 (08:06→21:34)
[2018-06-13] MEDS ORDERED: POTASSIUM CHLORIDE (SR) 20 MEQ TAB PO STA ×2 (09:05→13:30)
[2018-06-13] MEDS: DOXYCYCLINE 100 MG TAB PO SCH ×2 (09:23→20:33)
[2018-06-13] MEDS: TIOTROPIUM 18 MCG CAPSULE INHA DEV INH SCH (09:24)
[2018-06-13] MEDS: FLUTICASONE/VILANTEROL 100-25 INH SCH (09:25)
--- NOTE | 2018-06-13 10:13 | PN ---
Date/Time of Note Date/Time of Note DATE: 06/13/18 TIME: 10:10 Assessment/Plan VTE Prophylaxis Risk score (from Ns)>0 risk: 1 SCD applied (from Ns): No SCD contraindicated: other Pharmacological prophylaxis: NA/contraindicated Pharm contraindication: low risk/ambulating Lines/Catheters IV C[facility] Type [facility]from [facility] Peripheral IV Urinary Cath still in place: No Assessment/Plan Hospital Course SUBJECTIVE: For the most part, patient is sleeping throughout the day/night. She is not in any acute distress at all. OBJECTIVE: Vital signs-see below PHYSICAL EXAM: Constitutional: Well-developed, adequately built, lying in bed comfortably. Psych: nl mood/affect, no complaints Head: atraumatic, normocephalic Eyes: nl conjunctiva, nl sclera ENMT: mucosa pink and moist, nl external ears & nose Neck: non-tender, supple Respiratory: clear to auscultation, normal air movement Cardiovascular: nl pulses, regular rate and rhythm Gastrointestinal: non-tender, soft, bowel sounds active in all 4 quadrants. Musculoskeletal/extremities: nl extremities to inspection, motor strength equal bilaterally, no focal deficit. Normal pulses,no cyanosis, no edema. Neurological: Alert oriented 3,nl speech, nl strength Skin: nl turgor ASSESSMENT/PLAN:42-year-old female who is also homeless, with a history of type 2 diabetes, noncompliance, admitted with fevers/cough/body aches.. also found to have DKA and sepsis with pneumonia. 1. Sepsis with MRSA bacteremia -Most likely culprit respiratory/pneumonia. -Resolving nicely. -Continue vancomycin -Follow-up repeat blood cultures. 2. Poorly controlled diabetes -DKA resolved. Blood sugar still in the high 200s, we will titrate Lantus up to 17 units with her body weight. Continue glimepiride. -Diabetic education has been requested 3. Community-acquired pneumonia. -On appropriate agents. 4. 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 History of meth abuse -Patient states last use was 2 weeks ago. Counseled on cessation. 6. Tobacco use -Cessation advised. 7. Iron Deficient anemia. -Status post intravenous iron repletion. Will transition to oral. -H&H stable. 8. Electrolyte derangement -Replete as indicated. DVT prophylaxis: SCDs/ambulation. PUD prophylaxis: Not indicated CODE STATUS: Full code Diet: Carbohydrate controlled. Disposition: Continue current management. Follow-up repeat cultures and discharge planning pending repeat culture status. Patient is also homeless with a drug abuse, as such we will try not to put patient on IV antibiotics. Patient was seen in collaboration with Dr. Pena. Result Diagram: 06/13/18 0506 06/13/18 0506 Results 24hrs Laboratory Tests Test 06/12/18 12:02 06/12/18 14:16 06/12/18 17:09 06/12/18 20:17 Bedside Glucose 233 H 288 H Serum HCG, NEGATIVE Qualitative Vancomycin Level 12.6 Trough Test 06/12/18 20:27 06/13/18 02:22 06/13/18 05:04 06/13/18 05:06 Bedside Glucose 298 H 260 H Magnesium Level 1.6 L White Blood Count 13.7 H Red Blood Count 3.46 L Hemoglobin 9.3 L Hematocrit 28.9 L Mean Corpuscular 83.5 Volume Mean Corpuscular 26.9 L Hemoglobin Mean Corpuscular 32.2 Hemoglobin Concent Red Cell 15.6 H Distribution Width Platelet Count 434 #H Mean Platelet Volume 10.9 H Immature 8.500 H Granulocytes % Neutrophils % Segmented 56 Neutrophils % (Manual) Band Neutrophils % 20 H (Manual) Lymphocytes % Lymphocytes % 17 (Manual) Reactive Lymphocytes 1 H % (Manual) Monocytes % Monocytes % (Manual) 4 Eosinophils % Basophils % Metamyelocytes % 1 H (manual) Myelocytes % 1 H (Manual) Nucleated Red Blood 0.3 H Cells % Immature 1.160 H Granulocytes # Neutrophils # Neutrophils # 8.0 H (Manual) Band Neutrophils # 2.7 H Lymphocytes (Manual) 2.3 Lymphocytes # Reactive Lymphocytes 0.1 H # Monocytes # Monocytes # (Manual) 0.5 Eosinophils # Basophils # Metamyelocytes # 0.1 H Myelocytes # 0.1 H Nucleated Red Blood Cells # Platelet Estimate NORMAL Ovalocytes 1+ Sodium Level 138 Potassium Level 2.7 *L Chloride Level 102 Carbon Dioxide Level 28 Anion Gap 8 Blood Urea Nitrogen 3 L Creatinine 0.29 L Est Glomerular > 60 Filtrat Rate mL/min Glucose Level 227 #H Calcium Level 8.3 L Test 06/13/18 07:08 06/13/18 07:58 Bedside Glucose 214 239 H Exam/Review of Systems Exam Vitals Vital Signs Date Temp Pulse Resp B/P (MAP) Pulse Ox O2 O2 Flow FiO2 Time Delivery Rate 06/13/18 108 08:07 06/13/18 Nasal 2.0 07:50 Cannula 06/13/18 98.0 18 120/69 98 07:39 (86) Intake and Output 06/12/18 06/12/18 06/13/18 1515:00 23:00 07:00 IntakeIntake Total 110 ml 650 ml 250 ml BalanceBalance 110 ml 650 ml 250 ml Results Results 24hrs Laboratory Tests Test 06/12/18 12:02 06/12/18 14:16 06/12/18 17:09 06/12/18 20:17 Bedside Glucose 233 H 288 H Serum HCG, NEGATIVE Qualitative Vancomycin Level 12.6 Trough Test 06/12/18 20:27 06/13/18 02:22 06/13/18 05:04 06/13/18 05:06 Bedside Glucose 298 H 260 H Magnesium Level 1.6 L White Blood Count 13.7 H Red Blood Count 3.46 L Hemoglobin 9.3 L Hematocrit 28.9 L Mean Corpuscular 83.5 Volume Mean Corpuscular 26.9 L Hemoglobin Mean Corpuscular 32.2 Hemoglobin Concent Red Cell 15.6 H Distribution Width Platelet Count 434 #H Mean Platelet Volume 10.9 H Immature 8.500 H Granulocytes % Neutrophils % Segmented 56 Neutrophils % (Manual) Band Neutrophils % 20 H (Manual) Lymphocytes % Lymphocytes % 17 (Manual) Reactive Lymphocytes 1 H % (Manual) Monocytes % Monocytes % (Manual) 4 Eosinophils % Basophils % Metamyelocytes % 1 H (manual) Myelocytes % 1 H (Manual) Nucleated Red Blood 0.3 H Cells % Immature 1.160 H Granulocytes # Neutrophils # Neutrophils # 8.0 H (Manual) Band Neutrophils # 2.7 H Lymphocytes (Manual) 2.3 Lymphocytes # Reactive Lymphocytes 0.1 H # Monocytes # Monocytes # (Manual) 0.5 Eosinophils # Basophils # Metamyelocytes # 0.1 H Myelocytes # 0.1 H Nucleated Red Blood Cells # Platelet Estimate NORMAL Ovalocytes 1+ Sodium Level 138 Potassium Level 2.7 *L Chloride Level 102 Carbon Dioxide Level 28 Anion Gap 8 Blood Urea Nitrogen 3 L Creatinine 0.29 L Est Glomerular > 60 Filtrat Rate mL/min Glucose Level 227 #H Calcium Level 8.3 L Test 06/13/18 07:08 06/13/18 07:58 Bedside Glucose 214 239 H Medications Medication Current Medications Ondansetron HCl (Zofran Inj) 4 mg Q6H PRN IV NAUSEA AND/OR VOMITING; Start at 00:30 Albuterol (Proventil 0.083% (Neb)) 2.5 mg Q2H RESP THERAPY PRN NEB SHORTNESS OF BREATH Last administered on 06/10/18 15:48; Admin Dose 2.5 MG; Start 06/09/18 at 00:30 Ipratropium [place] (Atrovent 0.02% (Neb)) 0.5 mg Q2H RESP THERAPY PRN NEB SHORTNESS OF BREATH Last administered on 06/10/18 15:48; Admin Dose 0.5 MG; Start 06/09/18 at 00:30 Acetaminophen (Tylenol Liquid) 650 mg Q6H PRN PO PAIN LEVEL 1-3 OR FEVER Last administered on 06/10/18 20:03; Admin Dose 650 MG; Start 06/09/18 at 00:30 Acetaminophen/ Hydrocodone Bitart ([place] (5/325)) 1 tab Q6H PRN PO PAIN LEVEL 4-6 Last administered on 06/12/18 21:56; Admin Dose 1 TAB; Start 06/09/18 at 00:30 Docusate Sodium (Colace) 100 mg Q12H PRN PO CONSTIPATION; Start 06/09/18 at 00:30 Bisacodyl (Dulcolax) 5 mg DAILY PRN PO CONSTIPATION; Start 06/09/18 at 00:30 Pantoprazole (Protonix Tab) 40 mg DAILY@06 PO Last administered on 06/13/18 05:41; Admin Dose 40 MG; Start 06/09/18 at 06:00 Ceftriaxone Sodium 50 ml @ 100 mls/hr Q24H IVPB Last administered on 06/12/18 20:29; Admin Dose 100 MLS/HR; Start 06/09/18 at 20:00; Stop 06/16/18 at 19:59 Diagnostic Test (Pha) (Accu-Chek) 1 ea 02 XX ; Start 06/10/18 at 02:00 Insulin Aspart (Novolog Insulin Pen) NOVOLOG *MILD* ALGORITHM WITH MEALS BEDTIME SC Last administered on 3/26/19at 08:06; Admin Dose 3 UNIT; Start 06/09/18 at 18:00 Miscellaneous Information 1 ea NOTE XX ; Start 06/09/18 at 14:30 Glucose (Glutose) 15 gm Q15M PRN PO DECREASED GLUCOSE; Start 06/09/18 at 14:30 Glucose (Glutose) 22.5 gm Q15M PRN PO DECREASED GLUCOSE; Start 06/09/18 at 14:30 Dextrose (D50w Syringe) 25 ml Q15M PRN IV DECREASED GLUCOSE; Start 06/09/18 at 14:30 Dextrose (D50w Syringe) 50 ml Q15M PRN IV DECREASED GLUCOSE; Start 06/09/18 at 14:30 Glucagon (Glucagen) 1 mg Q15M PRN IM DECREASED GLUCOSE; Start 06/09/18 at 14:30 Glucose (Glutose) 15 gm Q15M PRN BUCCAL DECREASED GLUCOSE; Start 06/09/18 at 14:30 Vancomycin HCl (Vanco Iv Per Pharmacy) VANCOMYCIN PER PHARMACY PER PROTOCOL XX ; Start 06/10/18 at 06:00 Tiotropium [place] (Spiriva) 1 inh DAILY INH Last administered on 06/13/18at 09:24; Admin Dose 1 INH; Start 06/10/18 at 14:30 Fluticasone/ Vilanterol (Breo Ellipta 100-25 Mcg Inh) 1 inh DAILY INH Last administered on 06/13/18at 09:25; Admin Dose 1 INH; Start 06/10/18 at 14:30 Montelukast Sodium (Singulair) 10 mg HS PO Last administered on 06/12/18at 20:29; Admin Dose 10 MG; Start 06/10/18 at 21:00 Vancomycin HCl 1.25 gm/Sodium Chloride 250 ml @ 83.333 mls/ hr Q8H IVPB Last administered on 06/13/18at 05:42; Admin Dose 83.333 MLS/HR; Start 06/11/18 at 14:00 Doxycycline Hyclate (Vibramycin) 100 mg BID PO Last administered on 06/13/18at 09:23; Admin Dose 100 MG; Start 06/11/18 at 21:00; Stop 06/21/18 at 20:59 Guaifenesin/ Dextromethorphan (Robitussin Dm Liquid Cup) 5 ml Q4H PRN PO COUGH Last administered on 06/12/18at 21:55; Admin Dose 5 ML; Start 06/11/18 at 11:30 Ferric Sodium Gluconate Complex 125 mg/Sodium Chloride 110 ml @ 110 mls/hr DAILY@1300 IVPB Last administered on 06/12/18at 14:11; Admin Dose 110 MLS/HR; Start 06/11/18 at 13:00; Stop 06/15/18 at 13:59 Insulin Glargine (Lantus) 15 units DAILY@0800 SC Last administered on 06/13/18at 08:06; Admin Dose 15 UNITS; Start 06/13/18 at 08:00 Glimepiride (Amaryl) 2 mg AC BREAKFAST DINNER PO Last administered on 06/13/18at 07:09; Admin Dose 2 MG; Start 06/13/18 at 06:00 Potassium Chloride (Klor-Con 20) 20 meq ONCE@1100 PO ; Start 06/13/18 at 11:00; Stop 06/13/18 at 16:00 JUSTINE DIAZ NP Jun 13, 2018 10:12
[2018-06-13] MEDS: FERROUS SULFATE (EC) 325 MG TAB PO SCH (10:46)
[2018-06-13] MEDS ORDERED: POTASSIUM CHLORIDE (SR) 20 MEQ TAB PO SCH (11:00)
[2018-06-13] MEDS ORDERED: MAGNESIUM SULFATE 3 GM in DEXTROSE 5% 100 ML IVPB ONE (11:00)
--- NOTE | 2018-06-13 13:41 | CONS ---
Assessment/Plan Assessment/Plan Problems: (1) Diabetes mellitus type 2 in nonobese Status: Chronic Comment: Is tolerating the oral medications. Her sugars went up slightly which was actually 1 things is willing to tolerate 4. Not can add in the Metformin and adjust the sulfonylureas. Please note the decisions for these medications is being driven by this homeless persons financial situation and access to refrigeration etc. (2) Acute hypokalemia Status: Acute Comment: Being replaced at this time (3) MRSA bacteremia Status: Acute Comment: As per primary care team and on antibiotics. Please note the echocardiogram was not revealing fortunately (4) Asthma, mild persistent Status: Chronic Comment: Adequate control Qualifiers: Asthma complication type: with acute exacerbation Qualified Codes: J45.31 - Mild persistent asthma with (acute) exacerbation Consultation Date/Type/Reason Admit Date/Time Jun 08, 2018 at 23:53 Initial Consult Date June 09, 2018 Type of Consult Endocrinology Reason for Consultation Diabetes mellitus type 2 off of treatment and out of control; finances are a consideration Requesting Provider: ARIS ANDERSEN Date/Time of Note DATE: 06/13/18 TIME: 13:39 24 HR Interval Summary Free Text/Dictation Patient reports that she has not been on her diabetic medication for some time as detailed in the original consultation Constitutional: no complaints (Denies fevers chills or sweats) Detailed Summary Respiratory: cough (Improved) Endocrine: no complaints Exam/Review of Systems Exam Vitals Vital Signs Date Temp Pulse Resp B/P (MAP) Pulse Ox O2 O2 Flow FiO2 Time Delivery Rate 06/13/18 108 12:52 06/13/18 98.0 18 123/65 98 12:27 (84) 06/13/18 Nasal 2.0 07:50 Cannula Intake and Output 06/12/18 06/12/18 06/13/18 1515:00 23:00 07:00 IntakeIntake Total 110 ml 650 ml 250 ml BalanceBalance 110 ml 650 ml 250 ml Constitutional: alert, oriented Respiratory: normal air movement, crackles/rales (With egophony) Cardiovascular: regular rate and rhythm, nl pulses Results Result Diagram: 06/13/18 0506 06/13/18 0506 Results 24hrs Laboratory Tests Test 06/12/18 14:16 06/12/18 17:09 06/12/18 20:17 06/12/18 20:27 Serum HCG, NEGATIVE Qualitative Bedside Glucose 288 H 298 H Vancomycin Level 12.6 Trough Test 06/13/18 02:22 06/13/18 05:04 06/13/18 05:06 06/13/18 07:08 Bedside Glucose 260 H 214 Magnesium Level 1.6 L White Blood Count 13.7 H Red Blood Count 3.46 L Hemoglobin 9.3 L Hematocrit 28.9 L Mean Corpuscular 83.5 Volume Mean Corpuscular 26.9 L Hemoglobin Mean Corpuscular 32.2 Hemoglobin Concent Red Cell 15.6 H Distribution Width Platelet Count 434 #H Mean Platelet Volume 10.9 H Immature 8.500 H Granulocytes % Neutrophils % Segmented 56 Neutrophils % (Manual) Band Neutrophils % 20 H (Manual) Lymphocytes % Lymphocytes % 17 (Manual) Reactive Lymphocytes 1 H % (Manual) Monocytes % Monocytes % (Manual) 4 Eosinophils % Basophils % Metamyelocytes % 1 H (manual) Myelocytes % 1 H (Manual) Nucleated Red Blood 0.3 H Cells % Immature 1.160 H Granulocytes # Neutrophils # Neutrophils # 8.0 H (Manual) Band Neutrophils # 2.7 H Lymphocytes (Manual) 2.3 Lymphocytes # Reactive Lymphocytes 0.1 H # Monocytes # Monocytes # (Manual) 0.5 Eosinophils # Basophils # Metamyelocytes # 0.1 H Myelocytes # 0.1 H Nucleated Red Blood Cells # Platelet Estimate NORMAL Ovalocytes 1+ Sodium Level 138 Potassium Level 2.7 *L Chloride Level 102 Carbon Dioxide Level 28 Anion Gap 8 Blood Urea Nitrogen 3 L Creatinine 0.29 L Est Glomerular > 60 Filtrat Rate mL/min Glucose Level 227 #H Calcium Level 8.3 L Test 06/13/18 07:58 06/13/18 12:17 Bedside Glucose 239 H 284 H Medications Medication Current Medications Ondansetron HCl (Zofran Inj) 4 mg Q6H PRN IV NAUSEA AND/OR VOMITING; Start 06/09/18 at 00:30 Albuterol (Proventil 0.083% (Neb)) 2.5 mg Q2H RESP THERAPY PRN NEB SHORTNESS OF BREATH Last administered on 06/10/18at 15:48; Admin Dose 2.5 MG; Start 06/09/18 at 00:30 Ipratropium [place] (Atrovent 0.02% (Neb)) 0.5 mg Q2H RESP THERAPY PRN NEB SHORTNESS OF BREATH Last administered on 06/10/18at 15:48; Admin Dose 0.5 MG; Start 06/09/18 at 00:30 Acetaminophen (Tylenol Liquid) 650 mg Q6H PRN PO PAIN LEVEL 1-3 OR FEVER Last administered on 06/10/18at 20:03; Admin Dose 650 MG; Start 06/09/18 at 00:30 Docusate Sodium (Colace) 100 mg Q12H PRN PO CONSTIPATION; Start 06/09/18 at 00:30 Bisacodyl (Dulcolax) 5 mg DAILY PRN PO CONSTIPATION; Start 06/09/18 at 00:30 Pantoprazole (Protonix Tab) 40 mg DAILY@06 PO Last administered on 06/13/18at 05:41; Admin Dose 40 MG; Start 06/09/18 at 06:00 Ceftriaxone Sodium 50 ml @ 100 mls/hr Q24H IVPB Last administered on 06/12/18at 20:29; Admin Dose 100 MLS/HR; Start 06/09/18 at 20:00; Stop 06/16/18 at 19:59 Diagnostic Test (Pha) (Accu-Chek) 1 ea 02 XX ; Start 06/10/18 at 02:00 Insulin Aspart (Novolog Insulin Pen) NOVOLOG *MILD* ALGORITHM WITH MEALS BEDTIME SC Last administered on 06/13/18at 12:20; Admin Dose 4 UNIT; Start 06/09/18 at 18:00 Miscellaneous Information 1 ea NOTE XX ; Start 06/09/18 at 14:30 Glucose (Glutose) 15 gm Q15M PRN PO DECREASED GLUCOSE; Start 06/09/18 at 14:30 Glucose (Glutose) 22.5 gm Q15M PRN PO DECREASED GLUCOSE; Start 06/09/18 at 14:30 Dextrose (D50w Syringe) 25 ml Q15M PRN IV DECREASED GLUCOSE; Start 06/09/18 at 14:30 Dextrose (D50w Syringe) 50 ml Q15M PRN IV DECREASED GLUCOSE; Start 06/09/18 at 14:30 Glucagon (Glucagen) 1 mg Q15M PRN IM DECREASED GLUCOSE; Start 06/09/18 at 14:30 Glucose (Glutose) 15 gm Q15M PRN BUCCAL DECREASED GLUCOSE; Start 06/09/18 at 14:30 Vancomycin HCl (Vanco Iv Per Pharmacy) VANCOMYCIN PER PHARMACY PER PROTOCOL XX ; Start 06/10/18 at 06:00 Tiotropium [place] (Spiriva) 1 inh DAILY INH Last administered on 06/13/18 09:24; Admin Dose 1 INH; Start 06/10/18 at 14:30 Fluticasone/ Vilanterol (Breo Ellipta 100-25 Mcg Inh) 1 inh DAILY INH Last administered on 06/13/18 09:25; Admin Dose 1 INH; Start 06/10/18 at 14:30 Montelukast Sodium (Singulair) 10 mg HS PO Last administered on 06/12/18 20:29; Admin Dose 10 MG; Start 06/10/18 at 21:00 Vancomycin HCl 1.25 gm/Sodium Chloride 250 ml @ 83.333 mls/ hr Q8H IVPB Last administered on 06/13/18 05:42; Admin Dose 83.333 MLS/HR; Start 06/11/18 at 14:00 Doxycycline Hyclate (Vibramycin) 100 mg BID PO Last administered on 06/13/18 09:23; Admin Dose 100 MG; Start 06/11/18 at 21:00; Stop 06/21/18 at 20:59 Guaifenesin/ Dextromethorphan (Robitussin Dm Liquid Cup) 5 ml Q4H PRN PO COUGH Last administered on 06/12/18 21:55; Admin Dose 5 ML; Start 06/11/18 at 11:30 Ferric Sodium Gluconate Complex 125 mg/Sodium Chloride 110 ml @ 110 mls/hr DAILY@1300 IVPB Last administered on 06/12/18 14:11; Admin Dose 110 MLS/HR; Start 06/11/18 at 13:00; Stop 06/15/18 at 13:59 Glimepiride (Amaryl) 2 mg AC BREAKFAST DINNER PO Last administered on 07:09; Admin Dose 2 MG; Start 06/13/18 at 06:00 Potassium Chloride (Klor-Con 20) 20 meq ONCE@1100 PO Last administered on 06/13/18 10:46; Admin Dose 20 MEQ; Start 06/13/18 at 11:00; Stop 06/13/18 at 16:00 Insulin Glargine (Lantus) 17 units DAILY@0800 SC ; Start 06/14/18 at 08:00 Magnesium Sulfate 3 gm/Dextrose 106 ml @ 35.333 mls/ hr ONCE ONCE IVPB Last administered on 06/13/18at 10:43; Admin Dose 35.333 MLS/HR; Start 06/13/18 at 11:00; Stop 06/13/18 at 13:59 Ferrous Sulfate (Ferrous Sulfate (Ec)) 325 mg DAILY PO Last administered on 06/13/18at 10:46; Admin Dose 325 MG; Start 06/13/18 at 10:30 STEVE AGGARWAL MD Jun 13, 2018 13:41
[2018-06-13] MEDS: SOD FERRIC GLUC COMPLX 125 MG in SOD CHLORIDE 0.9% 100 ML IVPB SCH (14:44)
[2018-06-13] MEDS: metFORMIN 500 MG TAB PO SCH (17:36)
[2018-06-13] MEDS: GUAIFENESIN/DM 5ML CUP PO PRN (20:33)
[2018-06-13] MEDS: MONTELUKAST 10 MG TAB PO SCH (20:33)
[2018-06-13] MEDS: CEFTRIAXONE 1 GM/50 ML (PMX) 50 ML IVPB SCH (20:33)
[2018-06-13] MEDS: ACETAMINOPHEN 650MG/20.3ML CUP PO PRN (22:54)
[2018-06-14] VITALS (10 sets, daily range): BP systolic 125–137; BP diastolic 78–90; PULSE 107–135; RESP 18–22
[2018-06-14] MEDS: ACCU-CHEK XX SCH (02:00)
[2018-06-14] MEDS: GUAIFENESIN/DM 5ML CUP PO PRN ×3 (04:06→17:17)
[2018-06-14] MEDS: VANCOMYCIN HCL 1.25 GM in SOD CHLORIDE 0.9% 250 ML IVPB SCH ×3 (06:29→23:16)
[2018-06-14] MEDS: PANTOPRAZOLE (EC) 40 MG TAB PO SCH (06:29)
[2018-06-14] MEDS: GLIMEPIRIDE 2 MG TAB PO SCH ×2 (07:58→17:13)
[2018-06-14] MEDS: FERROUS SULFATE (EC) 325 MG TAB PO SCH (08:00)
[2018-06-14] MEDS ORDERED: INSULIN GLARGINE [LANTus] (100 UNITS/ML) SYG SC SCH (08:00)
[2018-06-14] MEDS: TIOTROPIUM 18 MCG CAPSULE INHA DEV INH SCH (08:00)
[2018-06-14] MEDS: DOXYCYCLINE 100 MG TAB PO SCH (08:00)
[2018-06-14] MEDS: FLUTICASONE/VILANTEROL 100-25 INH SCH (08:00)
[2018-06-14] MEDS: metFORMIN 500 MG TAB PO SCH (08:00)
[2018-06-14] MEDS: INSULIN ASPART [NOVOLOG] 3 ML PEN SC SCH ×4 (08:09→20:54)
[2018-06-14] MEDS: INSULIN GLARGINE [LANTus] (100 UNITS/ML) SYG SC SCH (08:10)
[2018-06-14] MEDS ORDERED: POTASSIUM CHLORIDE (SR) 20 MEQ TAB PO STA ×2 (08:41→13:13)
--- NOTE | 2018-06-14 08:54 | PN ---
Date/Time of Note Date/Time of Note DATE: 06/14/18 TIME: 08:45 Assessment/Plan VTE Prophylaxis Risk score (from Ns)>0 risk: 1 SCD applied (from Ns): No SCD contraindicated: other Pharmacological prophylaxis: NA/contraindicated Pharm contraindication: low risk/ambulating Lines/Catheters [facility] Saline Lock Urinary Cath still in place: No Assessment/Plan Hospital Course SUBJECTIVE: No acute overnight episodes. + Nonproductive cough. OBJECTIVE: Vital signs-see below PHYSICAL EXAM: Constitutional: Well-developed, adequately built, lying in bed comfortably. Psych: nl mood/affect, no complaints Head: atraumatic, normocephalic Eyes: nl conjunctiva, nl sclera ENMT: mucosa pink and moist, nl external ears & nose Neck: non-tender, supple Respiratory: clear to auscultation, normal air movement Cardiovascular: nl pulses, regular rate and rhythm Gastrointestinal: non-tender, soft, bowel sounds active in all 4 quadrants. Musculoskeletal/extremities: nl extremities to inspection, motor strength equal bilaterally, no focal deficit. Normal pulses,no cyanosis, no edema. Neurological: Alert oriented 3,nl speech, nl strength Skin: nl turgor ASSESSMENT/PLAN:42-year-old female who is also homeless, with a history of type 2 diabetes, noncompliance, admitted with fevers/cough/body aches.. also found to have DKA and sepsis with pneumonia. 1. Sepsis with MRSA bacteremia -Most likely culprit respiratory/pneumonia. Currently improved, leukocytosis persists likely secondary to ICH.. -Continue vancomycin -repeat blood cultures negative~48hrs 2. Poorly controlled diabetes -Senior [employer] managing this. On insulin and glimepiride. -Diabetic education has been requested 3. Community-acquired pneumonia. -On appropriate agents. -Clinically improved. 4. 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 History of meth abuse -Patient states last use was 2 weeks ago. Counseled on cessation. 6. Tobacco use -Cessation advised. 7. Iron Deficient anemia. -Continue oral iron. -H&H stable. 8. Electrolyte derangement -Replete as indicated. -Monitor. 10. Mild asthma. -Currently stable. At this time, this is controlled with as needed SELMA (Change t 11. Sinus tachycardia0 Xopenex if needed 2/2 tachycardia). DC ICH and Singulair. 11. Sinus tachycardia,likely secondary to albuterol/possible dehydration. -Twelve-lead EKG. Patient does not require any breathing treatments. Will change to Xopenex if needed. -We will give 500, normal saline bolus. DVT prophylaxis: SCDs/ambulation. PUD prophylaxis: Not indicated CODE STATUS: Full code Diet: Carbohydrate controlled. Disposition: Repeat labs in a.m., if WBC trending down and heart rate remained stable, likely DC planning on oral clindamycin. Patient was seen in collaboration with Dr. Pena. Result Diagram: 06/14/1851006/14/1811 Results 24hrs Laboratory Tests Test 06/13/18 12:17 06/13/18 17:37 06/13/18 20:29 06/14/18 02:06 Bedside Glucose 284 H 260 H 283 H 262 H Test 06/14/18 05:11 06/14/18 07:57 White Blood Count 17.3 #H Red Blood Count 3.66 L Hemoglobin 10.0 L Hematocrit 30.7 L Mean Corpuscular 83.9 Volume Mean Corpuscular 27.3 L Hemoglobin Mean Corpuscular 32.6 Hemoglobin Concent Red Cell 15.6 H Distribution Width Platelet Count 547 #H Mean Platelet Volume 10.0 Immature 10.600 H Granulocytes % Neutrophils % Segmented 64 Neutrophils % (Manual) Band Neutrophils % 8 H (Manual) Lymphocytes % Lymphocytes % 18 (Manual) Reactive Lymphocytes 1 H % (Manual) Monocytes % Monocytes % (Manual) 2 Eosinophils % Eosinophils % 3 (Manual) Basophils % Metamyelocytes % 3 H (manual) Myelocytes % 1 H (Manual) Nucleated Red Blood 2 H Cells % Immature 1.820 H Granulocytes # Neutrophils # Neutrophils # 11.3 H (Manual) Band Neutrophils # 1.3 H Lymphocytes (Manual) 3.1 H Lymphocytes # Reactive Lymphocytes 0.1 H # Monocytes # Monocytes # (Manual) 0.3 Eosinophils # Basophils # Metamyelocytes # 0.5 H Myelocytes # 0.1 H Nucleated Red Blood Cells # Toxic Granulation 1+ Platelet Estimate INCREASED Giant Platelets 4 H Polychromasia 3+ Hypochromasia 1+ Sodium Level 140 Potassium Level 3.2 L Chloride Level 102 Carbon Dioxide Level 27 Anion Gap 11 Blood Urea Nitrogen 5 L Creatinine 0.34 L Est Glomerular > 60 Filtrat Rate mL/min Glucose Level 246 H Calcium Level 8.7 Magnesium Level 1.8 Bedside Glucose 247 H Exam/Review of Systems Exam Vitals Vital Signs Date Temp Pulse Resp B/P (MAP) Pulse Ox O2 O2 Flow FiO2 Time Delivery Rate 06/14/18 128 08:00 06/14/18 98.6 22 125/84 96 Room Air 2.0 07:30 (98) Intake and Output 06/13/18 06/13/18 06/14/18 1515:00 23:00 07:00 IntakeIntake Total 300 ml OutputOutput Total 150 ml BalanceBalance 150 ml Results Results 24hrs Laboratory Tests Test 06/13/18 12:17 06/13/18 17:37 06/13/18 20:29 06/14/18 02:06 Bedside Glucose 284 H 260 H 283 H 262 H Test 06/14/18 05:11 06/14/18 07:57 White Blood Count 17.3 #H Red Blood Count 3.66 L Hemoglobin 10.0 L Hematocrit 30.7 L Mean Corpuscular 83.9 Volume Mean Corpuscular 27.3 L Hemoglobin Mean Corpuscular 32.6 Hemoglobin Concent Red Cell 15.6 H Distribution Width Platelet Count 547 #H Mean Platelet Volume 10.0 Immature 10.600 H Granulocytes % Neutrophils % Segmented 64 Neutrophils % (Manual) Band Neutrophils % 8 H (Manual) Lymphocytes % Lymphocytes % 18 (Manual) Reactive Lymphocytes 1 H % (Manual) Monocytes % Monocytes % (Manual) 2 Eosinophils % Eosinophils % 3 (Manual) Basophils % Metamyelocytes % 3 H (manual) Myelocytes % 1 H (Manual) Nucleated Red Blood 2 H Cells % Immature 1.820 H Granulocytes # Neutrophils # Neutrophils # 11.3 H (Manual) Band Neutrophils # 1.3 H Lymphocytes (Manual) 3.1 H Lymphocytes # Reactive Lymphocytes 0.1 H # Monocytes # Monocytes # (Manual) 0.3 Eosinophils # Basophils # Metamyelocytes # 0.5 H Myelocytes # 0.1 H Nucleated Red Blood Cells # Toxic Granulation 1+ Platelet Estimate INCREASED Giant Platelets 4 H Polychromasia 3+ Hypochromasia 1+ Sodium Level 140 Potassium Level 3.2 L Chloride Level 102 Carbon Dioxide Level 27 Anion Gap 11 Blood Urea Nitrogen 5 L Creatinine 0.34 L Est Glomerular > 60 Filtrat Rate mL/min Glucose Level 246 H Calcium Level 8.7 Magnesium Level 1.8 Bedside Glucose 247 H Medications Medication Current Medications Ondansetron HCl (Zofran Inj) 4 mg Q6H PRN IV NAUSEA AND/OR VOMITING; Start 06/09/18 at 00:30 Albuterol (Proventil 0.083% (Neb)) 2.5 mg Q2H RESP THERAPY PRN NEB SHORTNESS OF BREATH Last administered on 06/10/18at 15:48; Admin Dose 2.5 MG; Start 06/09/18 at 00:30 Ipratropium [place] (Atrovent 0.02% (Neb)) 0.5 mg Q2H RESP THERAPY PRN NEB SHORTNESS OF BREATH Last administered on 06/10/18 15:48; Admin Dose 0.5 MG; Start 06/09/18 at 00:30 Acetaminophen (Tylenol Liquid) 650 mg Q6H PRN PO PAIN LEVEL 1-3 OR FEVER Last administered on 06/13/18at 22:54; Admin Dose 650 MG; Start 06/09/18 at 00:30 Docusate Sodium (Colace) 100 mg Q12H PRN PO CONSTIPATION; Start 06/09/18 at 00:30 Bisacodyl (Dulcolax) 5 mg DAILY PRN PO CONSTIPATION; Start 06/09/18 at 00:30 Pantoprazole (Protonix Tab) 40 mg DAILY@06 PO Last administered on 06/14/18at 06:29; Admin Dose 40 MG; Start 06/09/18 at 06:00 Ceftriaxone Sodium 50 ml @ 100 mls/hr Q24H IVPB Last administered on 06/13/18at 20:33; Admin Dose 100 MLS/HR; Start 06/09/18 at 20:00; Stop 06/16/18 at 19:59 Diagnostic Test (Pha) (Accu-Chek) 1 ea 02 XX ; Start 06/10/18 at 02:00 Insulin Aspart (Novolog Insulin Pen) NOVOLOG *MILD* ALGORITHM WITH MEALS BEDTIME SC Last administered on 06/14/18at 08:09; Admin Dose 3 UNIT; Start 06/09/18 at 18:00 Miscellaneous Information 1 ea NOTE XX ; Start 06/09/18 at 14:30 Glucose (Glutose) 15 gm Q15M PRN PO DECREASED GLUCOSE; Start 06/09/18 at 14:30 Glucose (Glutose) 22.5 gm Q15M PRN PO DECREASED GLUCOSE; Start 06/09/18 at 14:30 Dextrose (D50w Syringe) 25 ml Q15M PRN IV DECREASED GLUCOSE; Start 06/09/18 at 14:30 Dextrose (D50w Syringe) 50 ml Q15M PRN IV DECREASED GLUCOSE; Start 06/09/18 at 14:30 Glucagon (Glucagen) 1 mg Q15M PRN IM DECREASED GLUCOSE; Start 06/09/18 at 14:30 Glucose (Glutose) 15 gm Q15M PRN BUCCAL DECREASED GLUCOSE; Start 06/09/18 at 14:30 Vancomycin HCl (Vanco Iv Per Pharmacy) VANCOMYCIN PER PHARMACY PER PROTOCOL XX ; Start 06/10/18 at 06:00 Tiotropium [place] (Spiriva) 1 inh DAILY INH Last administered on 06/14/18at 08:00; Admin Dose 1 INH; Start 06/10/18 at 14:30 Fluticasone/ Vilanterol (Breo Ellipta 100-25 Mcg Inh) 1 inh DAILY INH Last administered on 06/14/18at 08:00; Admin Dose 1 INH; Start 06/10/18 at 14:30 Montelukast Sodium (Singulair) 10 mg HS PO Last administered on 06/13/18at 20:33; Admin Dose 10 MG; Start 06/10/18 at 21:00 Vancomycin HCl 1.25 gm/Sodium Chloride 250 ml @ 83.333 mls/ hr Q8H IVPB Last administered on 06/14/18 06:29; Admin Dose 83.333 MLS/HR; Start 06/11/18 at 14:00 Doxycycline Hyclate (Vibramycin) 100 mg BID PO Last administered on 06/14/18at 08:00; Admin Dose 100 MG; Start 06/11/18 at 21:00; Stop 06/21/18 at 20:59 Guaifenesin/ Dextromethorphan (Robitussin Dm Liquid Cup) 5 ml Q4H PRN PO COUGH Last administered on 06/14/18 07:58; Admin Dose 5 ML; Start 06/11/18 at 11:30 Ferric Sodium Gluconate Complex 125 mg/Sodium Chloride 110 ml @ 110 mls/hr DAILY@1300 IVPB Last administered on 06/13/18at 14:44; Admin Dose 110 MLS/HR; Start 06/11/18 at 13:00; Stop 06/15/18 at 13:59 Ferrous Sulfate (Ferrous Sulfate (Ec)) 325 mg DAILY PO Last administered on 06/14/18 08:00; Admin Dose 325 MG; Start 06/13/18 at 10:30 Glimepiride (Amaryl) 4 mg AC BREAKFAST DINNER PO Last administered on 06/14/18at 07:58; Admin Dose 4 MG; Start 06/13/18 at 17:30 Insulin Glargine (Lantus) 10 units DAILY@0800 SC Last administered on 06/14/18at 08:10; Admin Dose 10 UNITS; Start 06/14/18 at 08:00 Metformin HCl (Glucophage) 500 mg BID WITH MEALS PO Last administered on 06/14/18at 08:00; Admin Dose 500 MG; Start 06/13/18 at 18:00 JUSTINE DIAZ NP Jun 14, 2018 08:54
[2018-06-14] MEDS ORDERED: SOD CHLORIDE 0.9% 500 ML IV ONE (09:30)
[2018-06-14] MEDS: ACETAMINOPHEN 650MG/20.3ML CUP PO PRN ×2 (10:38→21:16)
[2018-06-14] MEDS: GUAIFENESIN/DM (SR) TAB PO SCH ×2 (11:46→20:53)
[2018-06-14] MEDS: CLINDAMYCIN 300 MG CAP PO SCH ×2 (11:46→17:12)
--- NOTE | 2018-06-14 13:19 | CONS ---
Assessment/Plan Assessment/Plan Problems: (1) Diabetes mellitus type 2 in nonobese Status: Chronic Comment: Sugars are still out of line. Adjusting medications to get this under better control. (2) Acute hypokalemia Status: Acute Comment: Not adequately replaced yet Consultation Date/Type/Reason Admit Date/Time Jun 08, 2018 at 23:53 Initial Consult Date June 09, 2018 Type of Consult Endocrinology Reason for Consultation Diabetes mellitus type 2 with poor control; multifocal pneumonia with MRSA bacteremia, and negative echocardiogram Requesting Provider: ARIS ANDERSEN Date/Time of Note DATE: 06/14/18 TIME: 13:18 24 HR Interval Summary Free Text/Dictation Patient reports she is still coughing and having pain in her side from the coughing. Constitutional: no complaints Detailed Summary Endocrine: no complaints (No side effects from antidiabetic medications) Exam/Review of Systems Exam Vitals Vital Signs Date Temp Pulse Resp B/P (MAP) Pulse Ox O2 O2 Flow FiO2 Time Delivery Rate 06/14/18 130 12:00 06/14/18 99.0 22 126/80 96 Room Air 11:51 (95) Nasal Cannula 06/14/18 2.0 08:30 Intake and Output 06/13/18 06/13/18 06/14/18 1414:59 22:59 06:59 IntakeIntake Total 300 ml OutputOutput Total 150 ml BalanceBalance 150 ml Constitutional: alert, oriented Respiratory: clear to auscultation, normal air movement Cardiovascular: regular rate and rhythm, nl pulses Results Result Diagram: 06/14/18 0511 06/14/18 0511 Results 24hrs Laboratory Tests Test 06/13/18 17:37 06/13/18 20:29 06/14/18 02:06 06/14/18 05:11 Bedside Glucose 260 H 283 H 262 H White Blood Count 17.3 #H Red Blood Count 3.66 L Hemoglobin 10.0 L Hematocrit 30.7 L Mean Corpuscular 83.9 Volume Mean Corpuscular 27.3 L Hemoglobin Mean Corpuscular 32.6 Hemoglobin Concent Red Cell 15.6 H Distribution Width Platelet Count 547 #H Mean Platelet Volume 10.0 Immature 10.600 H Granulocytes % Neutrophils % Segmented 64 Neutrophils % (Manual) Band Neutrophils % 8 H (Manual) Lymphocytes % Lymphocytes % 18 (Manual) Reactive Lymphocytes 1 H % (Manual) Monocytes % Monocytes % (Manual) 2 Eosinophils % Eosinophils % 3 (Manual) Basophils % Metamyelocytes % 3 H (manual) Myelocytes % 1 H (Manual) Nucleated Red Blood 2 H Cells % Immature 1.820 H Granulocytes # Neutrophils # Neutrophils # 11.3 H (Manual) Band Neutrophils # 1.3 H Lymphocytes (Manual) 3.1 H Lymphocytes # Reactive Lymphocytes 0.1 H # Monocytes # Monocytes # (Manual) 0.3 Eosinophils # Basophils # Metamyelocytes # 0.5 H Myelocytes # 0.1 H Nucleated Red Blood Cells # Toxic Granulation 1+ Platelet Estimate INCREASED Giant Platelets 4 H Polychromasia 3+ Hypochromasia 1+ Sodium Level 140 Potassium Level 3.2 L Chloride Level 102 Carbon Dioxide Level 27 Anion Gap 11 Blood Urea Nitrogen 5 L Creatinine 0.34 L Est Glomerular > 60 Filtrat Rate mL/min Glucose Level 246 H Calcium Level 8.7 Magnesium Level 1.8 Test 06/14/18 07:57 06/14/18 11:48 Bedside Glucose 247 H 155 Medications Medication Current Medications Ondansetron HCl (Zofran Inj) 4 mg Q6H PRN IV NAUSEA AND/OR VOMITING; Start 06/09/18 at 00:30 Ipratropium [place] (Atrovent 0.02% (Neb)) 0.5 mg Q2H RESP THERAPY PRN NEB SHORTNESS OF BREATH Last administered on 06/10/18at 15:48; Admin Dose 0.5 MG; Start 06/09/18 at 00:30 Acetaminophen (Tylenol Liquid) 650 mg Q6H PRN PO PAIN LEVEL 1-3 OR FEVER Last a dministered on 06/14/18at 10:38; Admin Dose 650 MG; Start 06/09/18 at 00:30 Docusate Sodium (Colace) 100 mg Q12H PRN PO CONSTIPATION; Start 06/09/18 at 00:30 Bisacodyl (Dulcolax) 5 mg DAILY PRN PO CONSTIPATION; Start 06/09/18 at 00:30 Pantoprazole (Protonix Tab) 40 mg DAILY@06 PO Last administered on 06/14/18at 06:29; Admin Dose 40 MG; Start 06/09/18 at 06:00 Ceftriaxone Sodium 50 ml @ 100 mls/hr Q24H IVPB Last administered on 06/13/18at 20:33; Admin Dose 100 MLS/HR; Start 06/09/18 at 20:00; Stop 06/16/18 at 19:59 Diagnostic Test (Pha) (Accu-Chek) 1 ea 02 XX ; Start 06/10/18 at 02:00 Insulin Aspart (Novolog Insulin Pen) NOVOLOG *MILD* ALGORITHM WITH MEALS BEDTIME SC Last administered on 06/14/18at 11:53; Admin Dose 1 UNIT; Start 06/09/18 at 18:00 Miscellaneous Information 1 ea NOTE XX ; Start 06/09/18 at 14:30 Glucose (Glutose) 15 gm Q15M PRN PO DECREASED GLUCOSE; Start 06/09/18 at 14:30 Glucose (Glutose) 22.5 gm Q15M PRN PO DECREASED GLUCOSE; Start 06/09/18 at 14:30 Dextrose (D50w Syringe) 25 ml Q15M PRN IV DECREASED GLUCOSE; Start 06/09/18 at 14:30 Dextrose (D50w Syringe) 50 ml Q15M PRN IV DECREASED GLUCOSE; Start 06/09/18 at 14:30 Glucagon (Glucagen) 1 mg Q15M PRN IM DECREASED GLUCOSE; Start 06/09/18 at 14:30 Glucose (Glutose) 15 gm Q15M PRN BUCCAL DECREASED GLUCOSE; Start 06/09/18 at 14:30 Vancomycin HCl (Vanco Iv Per Pharmacy) VANCOMYCIN PER PHARMACY PER PROTOCOL XX ; Start 06/10/18 at 06:00 Vancomycin HCl 1.25 gm/Sodium Chloride 250 ml @ 83.333 mls/ hr Q8H IVPB Last administered on 06/14/18at 06:29; Admin Dose 83.333 MLS/HR; Start 06/11/18 at 14:00 Guaifenesin/ Dextromethorphan (Robitussin Dm Liquid Cup) 5 ml Q4H PRN PO COUGH Last administered on 06/14/18at 07:58; Admin Dose 5 ML; Start 06/11/18 at 11:30 Ferric Sodium Gluconate Complex 125 mg/Sodium Chloride 110 ml @ 110 mls/hr DAILY@1300 IVPB Last administered on 06/13/18at 14:44; Admin Dose 110 MLS/HR; Start 06/11/18 at 13:00; Stop 06/15/18 at 13:59 Ferrous Sulfate (Ferrous Sulfate (Ec)) 325 mg DAILY PO Last administered on 06/14/18 08:00; Admin Dose 325 MG; Start 06/13/18 at 10:30 Glimepiride (Amaryl) 4 mg AC BREAKFAST DINNER PO Last administered on 06/14/18at 07:58; Admin Dose 4 MG; Start 06/13/18 at 17:30 Insulin Glargine (Lantus) 10 units DAILY@0800 SC Last administered on 06/14/18 08:10; Admin Dose 10 UNITS; Start 06/14/18 at 08:00 Metformin HCl (Glucophage) 500 mg BID WITH MEALS PO Last administered on 06/14/18 08:00; Admin Dose 500 MG; Start 06/13/18 at 18:00 Levalbuterol (Xopenex Neb) 1.25 mg Q6H RESP THERAPY PRN HHN sob/wheezing; Start 06/14/18 at 09:00 Guaifenesin/ Dextromethorphan (Mucinex Dm) 1 tab BID PO Last administered on 06/14/18at 11:46; Admin Dose 1 TAB; Start 06/14/18 at 09:30 Clindamycin HCl (Cleocin) 300 mg Q6 PO Last administered on 06/14/18at 11:46; Admin Dose 300 MG; Start 06/14/18 at 12:00 Miscellaneous Information (*Rx Drug Level Order Reminder*) TRACI TR AT 1300 ONCE ONCE XX ; Start 06/15/18 at 13:00; Stop 06/15/18 at 13:01 STEVE AGGARWAL MD Jun 14, 2018 13:19
[2018-06-14] MEDS: SOD FERRIC GLUC COMPLX 125 MG in SOD CHLORIDE 0.9% 100 ML IVPB SCH (13:34)
[2018-06-14] MEDS: metFORMIN 850 MG TAB PO SCH (17:13)
[2018-06-14] MEDS ORDERED: metFORMIN 500 MG TAB PO SCH (18:00)
[2018-06-14] MEDS: CEFTRIAXONE 1 GM/50 ML (PMX) 50 ML IVPB SCH (20:52)
[2018-06-14] MEDS: LEVALBUTEROL (NEB) 1.25 MG/0.5 ML AMP HHN PRN (21:38)
[2018-06-14] MEDS: IPRATROPIUM (NEB) 0.5 MG/2.5 ML AMP NEB PRN (21:38)
[2018-06-14] MEDS ORDERED: IBUPROFEN 600 MG TAB PO ONE (22:00)
[2018-06-14] MEDS ORDERED: LORAZEPAM 2 MG INJ IV ONE (22:30)
[2018-06-15] VITALS (11 sets, daily range): BP systolic 117–142; BP diastolic 63–96; PULSE 99–126; RESP 18–22
[2018-06-15] MEDS: POTASSIUM CHLORIDE (SR) 20 MEQ TAB PO SCH ×3 (00:14→18:11)
[2018-06-15] MEDS ORDERED: HYDROCODONE/APAP (5/325) TAB PO ONE (01:30)
[2018-06-15] MEDS: ACCU-CHEK XX SCH ×2 (02:21→04:23)
[2018-06-15] MEDS ORDERED: METOPROLOL 25 MG TAB PO ONE (04:00)
[2018-06-15] MEDS: VANCOMYCIN HCL 1.25 GM in SOD CHLORIDE 0.9% 250 ML IVPB SCH ×2 (07:05→18:11)
[2018-06-15] MEDS: PANTOPRAZOLE (EC) 40 MG TAB PO SCH (07:06)
[2018-06-15] MEDS: CLINDAMYCIN 300 MG CAP PO SCH ×2 (07:06)
[2018-06-15] MEDS: GLIMEPIRIDE 2 MG TAB PO SCH ×2 (07:07→18:12)
[2018-06-15] MEDS: INSULIN ASPART [NOVOLOG] 3 ML PEN SC SCH ×4 (09:07→21:00)
[2018-06-15] MEDS: GUAIFENESIN/DM (SR) TAB PO SCH ×2 (09:08→20:41)
[2018-06-15] MEDS: metFORMIN 850 MG TAB PO SCH ×2 (09:08→18:11)
[2018-06-15] MEDS: INSULIN GLARGINE [LANTus] (100 UNITS/ML) SYG SC SCH (09:08)
[2018-06-15] MEDS: FERROUS SULFATE (EC) 325 MG TAB PO SCH (09:09)
--- NOTE | 2018-06-15 12:54 | PN ---
Date/Time of Note Date/Time of Note DATE: 06/15/18 TIME: 12:49 Assessment/Plan VTE Prophylaxis Risk score (from Ns)>0 risk: 1 SCD applied (from Ns): No SCD contraindicated: other Pharmacological prophylaxis: NA/contraindicated Pharm contraindication: low risk/ambulating Lines/Catheters [facility]from [facility] Saline Lock Urinary Cath still in place: No Assessment/Plan Hospital Course SUBJECTIVE: No acute overnight episodes. + Nonproductive cough. OBJECTIVE: Vital signs-see below PHYSICAL EXAM: Constitutional: Well-developed, adequately built, lying in bed comfortably. Psych: nl mood/affect, no complaints Head: atraumatic, normocephalic Eyes: nl conjunctiva, nl sclera ENMT: mucosa pink and moist, nl external ears & nose Neck: non-tender, supple Respiratory: clear to auscultation, normal air movement Cardiovascular: nl pulses, regular rate and rhythm Gastrointestinal: non-tender, soft, bowel sounds active in all 4 quadrants. Musculoskeletal/extremities: nl extremities to inspection, motor strength equal bilaterally, no focal deficit. Normal pulses,no cyanosis, no edema. Neurological: Alert oriented 3,nl speech, nl strength Skin: nl turgor ASSESSMENT/PLAN:42-year-old female who is also homeless, with a history of type 2 diabetes, noncompliance, admitted with fevers/cough/body aches.. also found to have DKA and sepsis with pneumonia. 1. Sepsis with MRSA bacteremia -Most likely culprit : Pneumonia. -clinically looking better. Repeat CS negative. However leukocytosis persist. At this time, broaden abx to Zosyn and continue vancomycin. 2. Poorly controlled diabetes -Dining Service Supervisor managing this. On insulin and glimepiride. -Diabetic education has been requested 3. Community-acquired pneumonia. -Leukocytosis persists+- doubt this has progressed=> Will do a chest CT for f/u . -Broaden abx 4. Homelessness -workers' compensation mediator follow-up 5. History of meth abuse -Patient states last use was 2 weeks ago. Counseled on cessation. 6. Tobacco use -Cessation advised. 7. Iron Deficient anemia. -Continue oral iron. -H&H stable. 8. Mild asthma. -Currently stable. At this time, this is controlled with as needed SELMA 11. Asymptomatic Sinus tachycardia, -stable DVT prophylaxis: SCDs/ambulation. PUD prophylaxis: Not indicated CODE STATUS: Full code Diet: Carbohydrate controlled. Disposition: pt w/ trending up WBC, broadens abx and obtain chest CT for PNA f/u. Patient was seen in collaboration with Dr. Pena. Result Diagram: 06/15/18 0516 06/15/18 0516 Results 24hrs Laboratory Tests Test 06/14/18 17:12 06/14/18 20:40 06/15/18 02:10 06/15/18 05:16 Bedside Glucose 110 86 73 White Blood Count 23.7 #H Red Blood Count 3.55 L Hemoglobin 9.6 L Hematocrit 29.8 L Mean Corpuscular 83.9 Volume Mean Corpuscular 27.0 L Hemoglobin Mean Corpuscular 32.2 Hemoglobin Concent Red Cell 15.9 H Distribution Width Platelet Count 644 H Mean Platelet Volume 10.3 Immature 3.600 H Granulocytes % Neutrophils % Segmented 76 Neutrophils % (Manual) Band Neutrophils % 5 H (Manual) Lymphocytes % Lymphocytes % 16 (Manual) Monocytes % Monocytes % (Manual) 2 Eosinophils % Basophils % Promyelocytes % 1 H (Manual) Nucleated Red Blood 1 H Cells % Immature 0.860 H Granulocytes # Neutrophils # Neutrophils # 18.3 H (Manual) Band Neutrophils # 1.1 H Lymphocytes (Manual) 3.7 H Lymphocytes # Monocytes # Monocytes # (Manual) 0.4 Eosinophils # Basophils # Promyelocytes # 0.2 H Nucleated Red Blood Cells # Platelet Estimate INCREASED Giant Platelets 5 H Polychromasia 3+ Hypochromasia 1+ Anisocytosis 1+ Target Cells 1+ Sodium Level 141 Potassium Level 3.1 L Chloride Level 105 Carbon Dioxide Level 27 Anion Gap 9 Blood Urea Nitrogen 3 L Creatinine 0.29 L Est Glomerular > 60 Filtrat Rate mL/min Glucose Level 117 # Calcium Level 8.9 Magnesium Level 1.8 Test 06/15/18 07:46 06/15/18 11:33 Bedside Glucose 174 75 Exam/Review of Systems Exam Vitals Vital Signs Date Temp Pulse Resp B/P (MAP) Pulse Ox O2 O2 Flow FiO2 Time Delivery Rate 06/15/18 112 12:06 06/15/18 98.6 22 117/77 96 Room Air 07:22 (90) 06/15/18 2.0 03:06 06/14/18 21 21:38 Intake and Output 06/14/18 06/14/18 06/15/18 1414:59 22:59 06:59 IntakeIntake Total 750 ml 860 ml BalanceBalance 750 ml 860 ml Results Results 24hrs Laboratory Tests Test 06/14/18 17:12 06/14/18 20:40 06/15/18 02:10 06/15/18 05:16 Bedside Glucose 110 86 73 White Blood Count 23.7 #H Red Blood Count 3.55 L Hemoglobin 9.6 L Hematocrit 29.8 L Mean Corpuscular 83.9 Volume Mean Corpuscular 27.0 L Hemoglobin Mean Corpuscular 32.2 Hemoglobin Concent Red Cell 15.9 H Distribution Width Platelet Count 644 H Mean Platelet Volume 10.3 Immature 3.600 H Granulocytes % Neutrophils % Segmented 76 Neutrophils % (Manual) Band Neutrophils % 5 H (Manual) Lymphocytes % Lymphocytes % 16 (Manual) Monocytes % Monocytes % (Manual) 2 Eosinophils % Basophils % Promyelocytes % 1 H (Manual) Nucleated Red Blood 1 H Cells % Immature 0.860 H Granulocytes # Neutrophils # Neutrophils # 18.3 H (Manual) Band Neutrophils # 1.1 H Lymphocytes (Manual) 3.7 H Lymphocytes # Monocytes # Monocytes # (Manual) 0.4 Eosinophils # Basophils # Promyelocytes # 0.2 H Nucleated Red Blood Cells # Platelet Estimate INCREASED Giant Platelets 5 H Polychromasia 3+ Hypochromasia 1+ Anisocytosis 1+ Target Cells 1+ Sodium Level 141 Potassium Level 3.1 L Chloride Level 105 Carbon Dioxide Level 27 Anion Gap 9 Blood Urea Nitrogen 3 L Creatinine 0.29 L Est Glomerular > 60 Filtrat Rate mL/min Glucose Level 117 # Calcium Level 8.9 Magnesium Level 1.8 Test 06/15/18 07:46 06/15/18 11:33 Bedside Glucose 174 75 Medications Medication Current Medications Ondansetron HCl (Zofran Inj) 4 mg Q6H PRN IV NAUSEA AND/OR VOMITING; Start 06/09/18 at 00:30 Ipratropium [place] (Atrovent 0.02% (Neb)) 0.5 mg Q2H RESP THERAPY PRN NEB SHORTNESS OF BREATH Last administered on 06/14/18at 21:38; Admin Dose 0.5 MG; Start 06/09/18 at 00:30 Acetaminophen (Tylenol Liquid) 650 mg Q6H PRN PO PAIN LEVEL 1-3 OR FEVER Last administered on 06/14/18at 21:16; Admin Dose 650 MG; Start 06/09/18 at 00:30 Docusate Sodium (Colace) 100 mg Q12H PRN PO CONSTIPATION; Start 06/09/18 at 00:30 Bisacodyl (Dulcolax) 5 mg DAILY PRN PO CONSTIPATION; Start 06/09/18 at 00:30 Pantoprazole (Protonix Tab) 40 mg DAILY@06 PO Last administered on 06/15/18at 07:06; Admin Dose 40 MG; Start 06/09/18 at 06:00 Diagnostic Test (Pha) (Accu-Chek) 1 ea 02 XX Last administered on 06/15/18at 04:23; Admin Dose 1 EA; Start 06/10/18 at 02:00 Insulin Aspart (Novolog Insulin Pen) NOVOLOG *MILD* ALGORITHM WITH MEALS BEDTIME SC Last administered on 06/15/18at 09:07; Admin Dose 1 UNIT; Start 06/09/18 at 18:00 Miscellaneous Information 1 ea NOTE XX ; Start 06/09/18 at 14:30 Glucose (Glutose) 15 gm Q15M PRN PO DECREASED GLUCOSE; Start 06/09/18 at 14:30 Glucose (Glutose) 22.5 gm Q15M PRN PO DECREASED GLUCOSE; Start 06/09/18 at 14:30 Dextrose (D50w Syringe) 25 ml Q15M PRN IV DECREASED GLUCOSE; Start 06/09/18 at 14:30 Dextrose (D50w Syringe) 50 ml Q15M PRN IV DECREASED GLUCOSE; Start 06/09/18 at 14:30 Glucagon (Glucagen) 1 mg Q15M PRN IM DECREASED GLUCOSE; Start 06/09/18 at 14:30 Glucose (Glutose) 15 gm Q15M PRN BUCCAL DECREASED GLUCOSE; Start 06/09/18 at 14:30 Vancomycin HCl (Vanco Iv Per Pharmacy) VANCOMYCIN PER PHARMACY PER PROTOCOL XX ; Start 06/10/18 at 06:00 Vancomycin HCl 1.25 gm/Sodium Chloride 250 ml @ 83.333 mls/ hr Q8H IVPB Last administered on 06/15/18at 07:05; Admin Dose 83.333 MLS/HR; Start 06/11/18 at 14:00 Guaifenesin/ Dextromethorphan (Robitussin Dm Liquid Cup) 5 ml Q4H PRN PO COUGH Last administered on 06/14/18 17:17; Admin Dose 5 ML; Start 06/11/18 at 11:30 Ferric Sodium Gluconate Complex 125 mg/Sodium Chloride 110 ml @ 110 mls/hr DAILY@1300 IVPB Last administered on 06/14/18 13:34; Admin Dose 110 MLS/HR; Start 06/11/18 at 13:00; Stop 06/15/18 at 13:59 Ferrous Sulfate (Ferrous Sulfate (Ec)) 325 mg DAILY PO Last administered on 06/15/18 09:09; Admin Dose 325 MG; Start 06/13/18 at 10:30 Glimepiride (Amaryl) 4 mg AC BREAKFAST DINNER PO Last administered on 9at 07:07; Admin Dose 4 MG; Start 06/13/18 at 17:30 Insulin Glargine (Lantus) 10 units DAILY@0800 SC Last administered on 06/15/18 09:08; Admin Dose 10 UNITS; Start 06/14/18 at 08:00 Levalbuterol (Xopenex Neb) 1.25 mg Q6H RESP THERAPY PRN HHN sob/wheezing Last administered on 06/14/18 21:38; Admin Dose 1.25 MG; Start 06/14/18 at 09:00 Guaifenesin/ Dextromethorphan (Mucinex Dm) 1 tab BID PO Last administered on 06/15/18 09:08; Admin Dose 1 TAB; Start 06/14/18 at 09:30 Clindamycin HCl (Cleocin) 300 mg Q6 PO Last administered on 06/15/18 07:06; Admin Dose 300 MG; Start 06/14/18 at 12:00 Miscellaneous Information (*Rx Drug Level Order Reminder*) VANCO TR AT 1300 ONCE ONCE XX ; Start 06/15/18 at 13:00; Stop 06/15/18 at 13:01 Metformin HCl (Glucophage) 850 mg BID WITH MEALS PO Last administered on 06/15/18 09:08; Admin Dose 850 MG; Start 06/14/18 at 18:00 Piperacillin Sod/ Tazobactam Sod 100 ml @ 200 mls/hr Q6 IVPB ; Start 06/15/18 at 13:00 JUSTINE DIAZ NP Jun 15, 2018 12:54
--- NOTE | 2018-06-15 14:01 | CONS ---
Assessment/Plan Assessment/Plan Problems: (1) Diabetes mellitus type 2 in nonobese Status: Chronic Comment: As the infection is being treated the sugar control is coming into line quite nicely. Due to the social considerations we have in this patient some taking her off of insulin using oral agents only. I will titrate to effect. (2) Asthma, mild persistent Status: Chronic Comment: Stable at this time. Qualifiers: Asthma complication type: with acute exacerbation Qualified Codes: J45.31 - Mild persistent asthma with (acute) exacerbation (3) Acute hypokalemia Status: Acute Comment: Replace (4) MRSA bacteremia Status: Acute Comment: As per primary team. (5) Anemia Status: Acute Comment: On parenteral replacement. Qualifiers: Anemia type: iron deficiency Iron deficiency anemia type: chronic blood loss Qualified Codes: D50.0 - Iron deficiency anemia secondary to blood loss (chronic) Consultation Date/Type/Reason Admit Date/Time Jun 08, 2018 at 23:53 Initial Consult Date June 09, 2018 Type of Consult Endocrinology Reason for Consultation Is mellitus type II out of control; MRSA bacteremia; multifocal pneumonia Requesting Provider: ARIS ANDERSEN Date/Time of Note DATE: 06/15/18 TIME: 13:59 24 HR Interval Summary Free Text/Dictation Patient reports she is still coughing and is worried that something is going to go worse Constitutional: no complaints (No further fevers) Detailed Summary Endocrine: no complaints Exam/Review of Systems Exam Vitals Vital Signs Date Temp Pulse Resp B/P (MAP) Pulse Ox O2 O2 Flow FiO2 Time Delivery Rate 06/15/18 112 12:06 06/15/18 98.0 20 140/96 96 Room Air 12:00 (111) 06/15/18 2.0 08:03 06/14/18 21 21:38 Intake and Output 06/14/18 06/14/18 06/15/18 1515:00 23:00 07:00 IntakeIntake Total 750 ml 860 ml BalanceBalance 750 ml 860 ml Exam No change in examination Results Result Diagram: 06/15/18 0516 06/15/18 0516 Results 24hrs Laboratory Tests Test 06/14/18 17:12 06/14/18 20:40 06/15/18 02:10 06/15/18 05:16 Bedside Glucose 110 86 73 White Blood Count 23.7 #H Red Blood Count 3.55 L Hemoglobin 9.6 L Hematocrit 29.8 L Mean Corpuscular 83.9 Volume Mean Corpuscular 27.0 L Hemoglobin Mean Corpuscular 32.2 Hemoglobin Concent Red Cell 15.9 H Distribution Width Platelet Count 644 H Mean Platelet Volume 10.3 Immature 3.600 H Granulocytes % Neutrophils % Segmented 76 Neutrophils % (Manual) Band Neutrophils % 5 H (Manual) Lymphocytes % Lymphocytes % 16 (Manual) Monocytes % Monocytes % (Manual) 2 Eosinophils % Basophils % Promyelocytes % 1 H (Manual) Nucleated Red Blood 1 H Cells % Immature 0.860 H Granulocytes # Neutrophils # Neutrophils # 18.3 H (Manual) Band Neutrophils # 1.1 H Lymphocytes (Manual) 3.7 H Lymphocytes # Monocytes # Monocytes # (Manual) 0.4 Eosinophils # Basophils # Promyelocytes # 0.2 H Nucleated Red Blood Cells # Platelet Estimate INCREASED Giant Platelets 5 H Polychromasia 3+ Hypochromasia 1+ Anisocytosis 1+ Target Cells 1+ Sodium Level 141 Potassium Level 3.1 L Chloride Level 105 Carbon Dioxide Level 27 Anion Gap 9 Blood Urea Nitrogen 3 L Creatinine 0.29 L Est Glomerular > 60 Filtrat Rate mL/min Glucose Level 117 # Calcium Level 8.9 Magnesium Level 1.8 Test 06/15/18 07:46 06/15/18 11:33 Bedside Glucose 174 75 Medications Medication Current Medications Ondansetron HCl (Zofran Inj) 4 mg Q6H PRN IV NAUSEA AND/OR VOMITING; Start 06/09/18 at 00:30 Ipratropium [place] (Atrovent 0.02% (Neb)) 0.5 mg Q2H RESP THERAPY PRN NEB SHORTNESS OF BREATH Last administered on 06/14/18at 21:38; Admin Dose 0.5 MG; Start 06/09/18 at 00:30 Acetaminophen (Tylenol Liquid) 650 mg Q6H PRN PO PAIN LEVEL 1-3 OR FEVER Last administered on 06/14/18at 21:16; Admin Dose 650 MG; Start 06/09/18 at 00:30 Docusate Sodium (Colace) 100 mg Q12H PRN PO CONSTIPATION; Start 06/09/18 at 00:30 Bisacodyl (Dulcolax) 5 mg DAILY PRN PO CONSTIPATION; Start 06/09/18 at 00:30 Pantoprazole (Protonix Tab) 40 mg DAILY@06 PO Last administered on 06/15/18at 07:06; Admin Dose 40 MG; Start 06/09/18 at 06:00 Diagnostic Test (Pha) (Accu-Chek) 1 ea 02 XX Last administered on 06/15/18at 04:23; Admin Dose 1 EA; Start 06/10/18 at 02:00 Insulin Aspart (Novolog Insulin Pen) NOVOLOG *MILD* ALGORITHM WITH MEALS BEDTIME SC Last administered on 06/15/18at 09:07; Admin Dose 1 UNIT; Start 06/09/18 at 18:00 Miscellaneous Information 1 ea NOTE XX ; Start 06/09/18 at 14:30 Glucose (Glutose) 15 gm Q15M PRN PO DECREASED GLUCOSE; Start 06/09/18 at 14:30 Glucose (Glutose) 22.5 gm Q15M PRN PO DECREASED GLUCOSE; Start 06/09/18 at 14:30 Dextrose (D50w Syringe) 25 ml Q15M PRN IV DECREASED GLUCOSE; Start 06/09/18 at 14:30 Dextrose (D50w Syringe) 50 ml Q15M PRN IV DECREASED GLUCOSE; Start 06/09/18 at 14:30 Glucagon (Glucagen) 1 mg Q15M PRN IM DECREASED GLUCOSE; Start 06/09/18 at 14:30 Glucose (Glutose) 15 gm Q15M PRN BUCCAL DECREASED GLUCOSE; Start 06/09/18 at 14:30 Vancomycin HCl (Vanco Iv Per Pharmacy) VANCOMYCIN PER PHARMACY PER PROTOCOL XX ; Start 06/10/18 at 06:00 Vancomycin HCl 1.25 gm/Sodium Chloride 250 ml @ 83.333 mls/ hr Q8H IVPB Last administered on 06/15/18at 07:05; Admin Dose 83.333 MLS/HR; Start 06/11/18 at 14:00 Guaifenesin/ Dextromethorphan (Robitussin Dm Liquid Cup) 5 ml Q4H PRN PO COUGH Last administered on 06/14/18at 17:17; Admin Dose 5 ML; Start 06/11/18 at 11:30 Ferric Sodium Gluconate Complex 125 mg/Sodium Chloride 110 ml @ 110 mls/hr DAILY@1300 IVPB Last administered on 06/14/18at 13:34; Admin Dose 110 MLS/HR; Start 06/11/18 at 13:00; Stop 06/15/18 at 13:59 Ferrous Sulfate (Ferrous Sulfate (Ec)) 325 mg DAILY PO Last administered on 06/15/18 09:09; Admin Dose 325 MG; Start 06/13/18 at 10:30 Glimepiride (Amaryl) 4 mg AC BREAKFAST DINNER PO Last administered on 06/15/18 07:07; Admin Dose 4 MG; Start 06/13/18 at 17:30 Levalbuterol (Xopenex Neb) 1.25 mg Q6H RESP THERAPY PRN HHN sob/wheezing Last administered on 06/14/18at 21:38; Admin Dose 1.25 MG; Start 06/14/18 at 09:00 Guaifenesin/ Dextromethorphan (Mucinex Dm) 1 tab BID PO Last administered on 06/15/18 09:08; Admin Dose 1 TAB; Start 06/14/18 at 09:30 Metformin HCl (Glucophage) 850 mg BID WITH MEALS PO Last administered on 06/15/18 09:08; Admin Dose 850 MG; Start 06/14/18 at 18:00 Piperacillin Sod/ Tazobactam Sod 100 ml @ 200 mls/hr Q6 IVPB ; Start 06/15/18 at 13:00 STEVE AGGARWAL MD Jun 15, 2018 14:00
[2018-06-15] MEDS: SOD FERRIC GLUC COMPLX 125 MG in SOD CHLORIDE 0.9% 100 ML IVPB SCH (14:30)
[2018-06-15] MEDS: PIPER-TAZO 3.375 GM IV (PMX) 100 ML IVPB SCH ×2 (16:31→20:41)
[2018-06-15] MEDS: DEXTROSE 50% 50 ML SYRINGE IV PRN (20:53)
[2018-06-16] VITALS (9 sets, daily range): BP systolic 109–162; BP diastolic 70–94; PULSE 99–123; RESP 16–18
[2018-06-16] MEDS: VANCOMYCIN HCL 1.25 GM in SOD CHLORIDE 0.9% 250 ML IVPB SCH ×4 (00:13→22:50)
[2018-06-16] MEDS: PIPER-TAZO 3.375 GM IV (PMX) 100 ML IVPB SCH ×4 (00:14→18:13)
[2018-06-16] MEDS: POTASSIUM CHLORIDE (SR) 20 MEQ TAB PO SCH (00:14)
[2018-06-16] MEDS: PANTOPRAZOLE (EC) 40 MG TAB PO SCH (06:56)
[2018-06-16] MEDS: GLIMEPIRIDE 2 MG TAB PO SCH ×2 (06:57→18:13)
[2018-06-16] MEDS: metFORMIN 850 MG TAB PO SCH (08:14)
[2018-06-16] MEDS: FERROUS SULFATE (EC) 325 MG TAB PO SCH (08:14)
[2018-06-16] MEDS: GUAIFENESIN/DM (SR) TAB PO SCH ×2 (08:14→21:15)
[2018-06-16] MEDS: INSULIN ASPART [NOVOLOG] 3 ML PEN SC SCH ×4 (08:19→21:51)
--- NOTE | 2018-06-16 09:51 | PN ---
Date/Time of Note Date/Time of Note DATE: 06/16/18 TIME: 09:45 Assessment/Plan VTE Prophylaxis Risk score (from Ns)>0 risk: 1 SCD applied (from Ns): No SCD contraindicated: other Pharmacological prophylaxis: NA/contraindicated Pharm contraindication: low risk/ambulating Lines/Catheters IV Catheter Type (from [place]): Saline Lock Urinary Cath still in place: No Assessment/Plan Hospital Course SUBJECTIVE: + Nonproductive cough. OBJECTIVE: Vital signs-see below PHYSICAL EXAM: Constitutional: Well-developed, adequately built, lying in bed comfortably. Psych: nl mood/affect, no complaints Head: atraumatic, normocephalic Eyes: nl conjunctiva, nl sclera ENMT: mucosa pink and moist, nl external ears & nose Neck: non-tender, supple Respiratory: few ronchi bilaterally, normal air movement Cardiovascular: nl pulses, regular rate and rhythm Gastrointestinal: non-tender, soft, bowel sounds active in all 4 quadrants. Musculoskeletal/extremities: nl extremities to inspection, motor strength equal bilaterally, no focal deficit. Normal pulses,no cyanosis, no edema. Neurological: Alert oriented 3,nl speech, nl strength Skin: nl turgor ASSESSMENT/PLAN:42-year-old female who is also homeless, with a history of type 2 diabetes, noncompliance, admitted with fevers/cough/body aches.. also found to have DKA and sepsis with pneumonia. 1. Sepsis with MRSA bacteremia -Most likely culprit : Pneumonia. -Leukocytosis trended down today. Continue Zosyn and vancomycin. 2. Poorly controlled diabetes -[employer] managing this. On insulin and glimepiride. -Diabetic education has been requested 3. Extensive bilateral multilobar pneumonia .CT concerning for developing cavitation/necrotizing pna.... -Will call pulmonary/ID consult. -Continue broad-spectrum antimicrobials. -Sputum culture 4. 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 History of meth abuse -Patient states last use was 2 weeks ago. Counseled on cessation. 6. Tobacco use -Cessation advised. 7. Iron Deficient anemia. -Continue oral iron. -H&H stable. 8. Mild asthma. -Currently stable. At this time, this is controlled with as needed SELMA 11. Asymptomatic Sinus tachycardia, -stable DVT prophylaxis: SCDs/ambulation. PUD prophylaxis: Not indicated CODE STATUS: Full code Diet: Carbohydrate controlled. Disposition: Overall, patient with worsened pneumonia. She is also homeless. Continue broad-spectrum antimicrobials. Follow-up pulmonary recommendations. Patient was seen in collaboration with Dr. Pena. Result Diagram: 06/16/18 0506/16/18 0517 Results 24hrs Laboratory Tests Test 06/15/18 11:33 06/15/18 13:45 06/15/18 17:13 06/15/18 20:32 Bedside Glucose 75 114 61 L Vancomycin Level 13.1 Trough Test 06/15/18 20:48 06/15/18 21:09 06/16/18 02:42 06/16/18 05:17 Bedside Glucose 62 L 175 80 White Blood Count 18.4 #H Red Blood Count 3.54 L Hemoglobin 9.7 L Hematocrit 30.0 L Mean Corpuscular 84.7 Volume Mean Corpuscular 27.4 L Hemoglobin Mean Corpuscular 32.3 Hemoglobin Concent Red Cell 16.6 H Distribution Width Platelet Count 645 H Mean Platelet Volume 9.9 Immature 2.900 H Granulocytes % Neutrophils % 77.2 H Lymphocytes % 14.7 L Monocytes % 4.1 Eosinophils % 0.8 Basophils % 0.3 Nucleated Red Blood 0.0 Cells % Immature 0.530 H Granulocytes # Neutrophils # 14.2 H Lymphocytes # 2.7 Monocytes # 0.8 Eosinophils # 0.2 Basophils # 0.1 Nucleated Red Blood 0.0 Cells # Sodium Level 140 Potassium Level 3.8 Chloride Level 107 Carbon Dioxide Level 24 Anion Gap 9 Blood Urea Nitrogen 2 L Creatinine 0.29 L Est Glomerular > 60 Filtrat Rate mL/min Glucose Level 78 Calcium Level 8.8 Test 06/16/18 07:06 06/16/18 08:13 Bedside Glucose 94 216 Exam/Review of Systems Exam Vitals Vital Signs Date Temp Pulse Resp B/P (MAP) Pulse Ox O2 O2 Flow FiO2 Time Delivery Rate 06/16/18 114 08:03 06/16/18 98.8 18 125/75 98 07:49 (92) 06/15/18 Nasal 2.0 20:00 Cannula 06/14/18 21 21:38 Intake and Output 06/15/18 06/15/18 06/16/18 1515:00 23:00 07:00 IntakeIntake Total 1000 ml 400 ml BalanceBalance 1000 ml 400 ml Results Results 24hrs Laboratory Tests Test 06/15/18 11:33 06/15/18 13:45 06/15/18 17:13 06/15/18 20:32 Bedside Glucose 75 114 61 L Vancomycin Level 13.1 Trough Test 06/15/18 20:48 06/15/18 21:09 06/16/18 02:42 06/16/18 05:17 Bedside Glucose 62 L 175 80 White Blood Count 18.4 #H Red Blood Count 3.54 L Hemoglobin 9.7 L Hematocrit 30.0 L Mean Corpuscular 84.7 Volume Mean Corpuscular 27.4 L Hemoglobin Mean Corpuscular 32.3 Hemoglobin Concent Red Cell 16.6 H Distribution Width Platelet Count 645 H Mean Platelet Volume 9.9 Immature 2.900 H Granulocytes % Neutrophils % 77.2 H Lymphocytes % 14.7 L Monocytes % 4.1 Eosinophils % 0.8 Basophils % 0.3 Nucleated Red Blood 0.0 Cells % Immature 0.530 H Granulocytes # Neutrophils # 14.2 H Lymphocytes # 2.7 Monocytes # 0.8 Eosinophils # 0.2 Basophils # 0.1 Nucleated Red Blood 0.0 Cells # Sodium Level 140 Potassium Level 3.8 Chloride Level 107 Carbon Dioxide Level 24 Anion Gap 9 Blood Urea Nitrogen 2 L Creatinine 0.29 L Est Glomerular > 60 Filtrat Rate mL/min Glucose Level 78 Calcium Level 8.8 Test 06/16/18 07:06 06/16/18 08:13 Bedside Glucose 94 216 Medications Medication Current Medications Ondansetron HCl (Zofran Inj) 4 mg Q6H PRN IV NAUSEA AND/OR VOMITING; Start 06/09/18 at 00:30 Ipratropium [place] (Atrovent 0.02% (Neb)) 0.5 mg Q2H RESP THERAPY PRN NEB SHOR TNESS OF BREATH Last administered on 06/14/18at 21:38; Admin Dose 0.5 MG; Start 06/09/18 at 00:30 Acetaminophen (Tylenol Liquid) 650 mg Q6H PRN PO PAIN LEVEL 1-3 OR FEVER Last administered on 06/14/18at 21:16; Admin Dose 650 MG; Start 06/09/18 at 00:30 Docusate Sodium (Colace) 100 mg Q12H PRN PO CONSTIPATION; Start 06/09/18 at 00:30 Bisacodyl (Dulcolax) 5 mg DAILY PRN PO CONSTIPATION; Start 06/09/18 at 00:30 Pantoprazole (Protonix Tab) 40 mg DAILY@06 PO Last administered on 06/16/18at 06:56; Admin Dose 40 MG; Start 06/09/18 at 06:00 Diagnostic Test (Pha) (Accu-Chek) 1 ea 02 XX Last administered on 06/15/18at 04:23; Admin Dose 1 EA; Start 06/10/18 at 02:00 Insulin Aspart (Novolog Insulin Pen) NOVOLOG *MILD* ALGORITHM WITH MEALS BEDTIME SC Last administered on 06/16/18at 08:19; Admin Dose 2 UNIT; Start 06/09/18 at 18:00 Miscellaneous Information 1 ea NOTE XX ; Start 06/09/18 at 14:30 Glucose (Glutose) 15 gm Q15M PRN PO DECREASED GLUCOSE; Start 06/09/18 at 14:30 Glucose (Glutose) 22.5 gm Q15M PRN PO DECREASED GLUCOSE; Start 06/09/18 at 14:30 Dextrose (D50w Syringe) 25 ml Q15M PRN IV DECREASED GLUCOSE Last administered on 06/15/18at 20:53; Admin Dose 25 ML; Start 06/09/18 at 14:30 Dextrose (D50w Syringe) 50 ml Q15M PRN IV DECREASED GLUCOSE; Start 06/09/18 at 14:30 Glucagon (Glucagen) 1 mg Q15M PRN IM DECREASED GLUCOSE; Start 06/09/18 at 14:30 Glucose (Glutose) 15 gm Q15M PRN BUCCAL DECREASED GLUCOSE; Start 06/09/18 at 14:30 Vancomycin HCl (Vanco Iv Per Pharmacy) VANCOMYCIN PER PHARMACY PER PROTOCOL XX ; Start 06/10/18 at 06:00 Vancomycin HCl 1.25 gm/Sodium Chloride 250 ml @ 83.333 mls/ hr Q8H IVPB Last administered on 06/16/18at 06:57; Admin Dose 83.333 MLS/HR; Start 06/11/18 at 14:00 Guaifenesin/ Dextromethorphan (Robitussin Dm Liquid Cup) 5 ml Q4H PRN PO COUGH Last administered on 06/14/18at 17:17; Admin Dose 5 ML; Start 06/11/18 at 11:30 Ferrous Sulfate (Ferrous Sulfate (Ec)) 325 mg DAILY PO Last administered on 06/16/18 08:14; Admin Dose 325 MG; Start 06/13/18 at 10:30 Glimepiride (Amaryl) 4 mg AC BREAKFAST DINNER PO Last administered on 06/16/18 06:57; Admin Dose 4 MG; Start 06/13/18 at 17:30 Levalbuterol (Xopenex Neb) 1.25 mg Q6H RESP THERAPY PRN HHN sob/wheezing Last administered on 06/14/18 21:38; Admin Dose 1.25 MG; Start 06/14/18 at 09:00 Guaifenesin/ Dextromethorphan (Mucinex Dm) 1 tab BID PO Last administered on 06/16/18 08:14; Admin Dose 1 TAB; Start 06/14/18 at 09:30 Metformin HCl (Glucophage) 850 mg BID WITH MEALS PO Last administered on 06/16/18 08:14; Admin Dose 850 MG; Start 06/14/18 at 18:00 Piperacillin Sod/ Tazobactam Sod 100 ml @ 200 mls/hr Q6 IVPB Last administered on 06/16/18 06:56; Admin Dose 200 MLS/HR; Start 06/15/18 at 13:00 JUSTINE DIAZ NP Jun 16, 2018 09:51
--- NOTE | 2018-06-16 14:07 | CONS ---
Assessment/Plan Assessment/Plan Problems: (1) Diabetes mellitus type 2 in nonobese Status: Chronic Comment: Sugars are coming into line. The reason I have her off insulin is because there is no way should be able to manage insulin outside of the hospital. As such I will do my best imbalances using simple and inexpensive generic medications on the inside of the hospital so she can transition outpatient smoothly (2) Asthma, mild persistent Status: Chronic Comment: Adequate control Qualifiers: Asthma complication type: with acute exacerbation Qualified Codes: J45.31 - Mild persistent asthma with (acute) exacerbation (3) Acute hypokalemia Status: Acute Comment: Presently replaced (4) Anemia Status: Acute Comment: Receiving iron. Qualifiers: Anemia type: iron deficiency Iron deficiency anemia type: chronic blood loss Qualified Codes: D50.0 - Iron deficiency anemia secondary to blood loss (chronic) Consultation Date/Type/Reason Admit Date/Time Jun 08, 2018 at 23:53 Initial Consult Date June 09, 2018 Type of Consult Endocrinology Reason for Consultation Diabetes mellitus type 2; MRSA bacteremia with pneumonia Requesting Provider: ARIS ANDERSEN Date/Time of Note DATE: 06/16/18 TIME: 14:04 24 HR Interval Summary Constitutional: no complaints Detailed Summary Endocrine: no complaints Exam/Review of Systems Exam Vitals Vital Signs Date Temp Pulse Resp B/P (MAP) Pulse Ox O2 O2 Flow FiO2 Time Delivery Rate 06/16/18 110 12:02 06/16/18 98.7 18 129/73 98 11:48 (91) 06/16/18 Nasal 2.0 07:30 Cannula 06/14/18 21 21:38 Intake and Output 06/15/18 06/15/18 06/16/18 1515:00 23:00 07:00 IntakeIntake Total 1000 ml 400 ml BalanceBalance 1000 ml 400 ml Exam No change in examination Results Result Diagram: 06/16/18 0517 06/16/18 0517 Results 24hrs Laboratory Tests Test 06/15/18 17:13 06/15/18 20:32 06/15/18 20:48 06/15/18 21:09 Bedside Glucose 114 61 L 62 L 175 Test 06/16/18 02:42 06/16/18 05:17 06/16/18 07:06 06/16/18 08:13 Bedside Glucose 80 94 216 White Blood Count 18.4 #H Red Blood Count 3.54 L Hemoglobin 9.7 L Hematocrit 30.0 L Mean Corpuscular 84.7 Volume Mean Corpuscular 27.4 L Hemoglobin Mean Corpuscular 32.3 Hemoglobin Concent Red Cell 16.6 H Distribution Width Platelet Count 645 H Mean Platelet Volume 9.9 Immature 2.900 H Granulocytes % Neutrophils % 77.2 H Lymphocytes % 14.7 L Monocytes % 4.1 Eosinophils % 0.8 Basophils % 0.3 Nucleated Red Blood 0.0 Cells % Immature 0.530 H Granulocytes # Neutrophils # 14.2 H Lymphocytes # 2.7 Monocytes # 0.8 Eosinophils # 0.2 Basophils # 0.1 Nucleated Red Blood 0.0 Cells # Sodium Level 140 Potassium Level 3.8 Chloride Level 107 Carbon Dioxide Level 24 Anion Gap 9 Blood Urea Nitrogen 2 L Creatinine 0.29 L Est Glomerular > 60 Filtrat Rate mL/min Glucose Level 78 Calcium Level 8.8 Test 06/16/18 11:49 Bedside Glucose 217 Medications Medication Current Medications Ondansetron HCl (Zofran Inj) 4 mg Q6H PRN IV NAUSEA AND/OR VOMITING; Start 06/09/18 at 00:30 Ipratropium [place] (Atrovent 0.02% (Neb)) 0.5 mg Q2H RESP THERAPY PRN NEB SHORTNESS OF BREATH Last administered on 06/14/18at 21:38; Admin Dose 0.5 MG; Start 06/09/18 at 00:30 Acetaminophen (Tylenol Liquid) 650 mg Q6H PRN PO PAIN LEVEL 1-3 OR FEVER Last administered on 06/14/18at 21:16; Admin Dose 650 MG; Start 06/09/18 at 00:30 Docusate Sodium (Colace) 100 mg Q12H PRN PO CONSTIPATION; Start 06/09/18 at 00:30 Bisacodyl (Dulcolax) 5 mg DAILY PRN PO CONSTIPATION; Start 06/09/18 at 00:30 Pantoprazole (Protonix Tab) 40 mg DAILY@06 PO Last administered on 06/16/18at 06:56; Admin Dose 40 MG; Start 06/09/18 at 06:00 Diagnostic Test (Pha) (Accu-Chek) 1 ea 02 XX Last administered on 06/15/18at 04:23; Admin Dose 1 EA; Start 06/10/18 at 02:00 Insulin Aspart (Novolog Insulin Pen) NOVOLOG *MILD* ALGORITHM WITH MEALS BEDTIME SC Last administered on 06/16/18 11:53; Admin Dose 2 UNIT; Start 06/09/18 at 18:00 Miscellaneous Information 1 ea NOTE XX ; Start 06/09/18 at 14:30 Glucose (Glutose) 15 gm Q15M PRN PO DECREASED GLUCOSE; Start 06/09/18 at 14:30 Glucose (Glutose) 22.5 gm Q15M PRN PO DECREASED GLUCOSE; Start 06/09/18 at 14:30 Dextrose (D50w Syringe) 25 ml Q15M PRN IV DECREASED GLUCOSE Last administered on 06/15/18at 20:53; Admin Dose 25 ML; Start 06/09/18 at 14:30 Dextrose (D50w Syringe) 50 ml Q15M PRN IV DECREASED GLUCOSE; Start 06/09/18 at 14:30 Glucagon (Glucagen) 1 mg Q15M PRN IM DECREASED GLUCOSE; Start 06/09/18 at 14:30 Glucose (Glutose) 15 gm Q15M PRN BUCCAL DECREASED GLUCOSE; Start 06/09/18 at 14:30 Vancomycin HCl (Vanco Iv Per Pharmacy) VANCOMYCIN PER PHARMACY PER PROTOCOL XX ; Start 06/10/18 at 06:00 Vancomycin HCl 1.25 gm/Sodium Chloride 250 ml @ 83.333 mls/ hr Q8H IVPB Last administered on 06/16/18 06:57; Admin Dose 83.333 MLS/HR; Start 06/11/18 at 14:00 Guaifenesin/ Dextromethorphan (Robitussin Dm Liquid Cup) 5 ml Q4H PRN PO COUGH Last administered on 06/14/18 17:17; Admin Dose 5 ML; Start 06/11/18 at 11:30 Ferrous Sulfate (Ferrous Sulfate (Ec)) 325 mg DAILY PO Last administered on 06/16/18 08:14; Admin Dose 325 MG; Start 06/13/18 at 10:30 Glimepiride (Amaryl) 4 mg AC BREAKFAST DINNER PO Last administered on 06/16/18 06:57; Admin Dose 4 MG; Start 06/13/18 at 17:30 Levalbuterol (Xopenex Neb) 1.25 mg Q6H RESP THERAPY PRN HHN sob/wheezing Last administered on 3/27/19at 21:38; Admin Dose 1.25 MG; Start 06/14/18 at 09:00 Guaifenesin/ Dextromethorphan (Mucinex Dm) 1 tab BID PO Last administered on 06/16/18 08:14; Admin Dose 1 TAB; Start 06/14/18 at 09:30 Metformin HCl (Glucophage) 850 mg BID WITH MEALS PO Last administered on 06/16/18 08:14; Admin Dose 850 MG; Start 06/14/18 at 18:00 Piperacillin Sod/ Tazobactam Sod 100 ml @ 200 mls/hr Q6 IVPB Last administered on 06/16/18at 12:06; Admin Dose 200 MLS/HR; Start 06/15/18 at 13:00 STEVE AGGARWAL MD Jun 16, 2018 14:07
--- NOTE | 2018-06-16 14:43 | CONS ---
DATE OF ADMISSION: 06/08/2018 DATE OF CONSULTATION: REASON FOR CONSULTATION: Abnormal chest x-ray. Thank you, Dr. Jackson, for this consultation. HISTORY OF PRESENT ILLNESS: This is an unfortunate 42-year-old lady who has been homeless for quite some time, presents with increasing cough, congestion, subjective fevers. CT chest was performed. T he patient was found to have extensive bilateral infiltrates and some cavitating processes. The sen ent denies any nausea, vomiting, no hemoptysis. States she was tested for TB a year ago and at that time was negative. PAST MEDICAL HISTORY: 1. Diabetes mellitus. 2. Prior history of tobacco use. 3. Methicillin-resistant Staphylococcus aureus bacteremia. MEDICATIONS: Per chart. ALLERGIES: NONE. SOCIAL HISTORY: Does have positive alcohol, meth and tobacco use. MEDICATIONS: Per chart. PHYSICAL EXAMINATION: GENERAL: Chronically ill appearing lady, comfortable at rest, no acute distress. VITAL SIGNS: Currently afebrile, pulse is 110, blood pressure 129/73, O2 saturation 98% on 2 L nasal cannula. NECK: Supple. No JVD or lymphadenopathy. CARDIAC: S1, S2, no added sounds or murmurs. CHEST: Diminished air entry bilaterally. ABDOMEN: Soft, nontender. No guarding or rebound. EXTREMITIES: No cyanosis, clubbing or edema. NEUROLOGICAL: Generalized weakness. No focal deficits. DIAGNOSTIC STUDIES: Echocardiogram was performed and demonstrated no valvular lesions and preserved ejection fraction. DIAGNOSTIC DATA: Chest CT was performed and demonstrated extensive bilateral multilobar pneumonia wi th areas of cavitation. IMPRESSION AND PLAN: 1. Likely severe healthcare-associated pneumonia versus aspiration pneumonia. Differential does inc lude mycobacterium and tuberculosis given a homeless history. I have requested sputum cultures for A FB. QuantiFERON Gold and coccidioidomycosis serology. In the interim, the patient should be placed on respiratory isolation. Recommend continuing her antibiotics of Zosyn and vancomycin. In addition , continue glycemic management per endocrinology. Dictated By: ALICIA HAZEL MD SV/NTS Conf#: [id number] DID#: [id number] CC: PEPE JACKSON MD; AZRA CAVANAUGH MD;*EndCC*
--- NOTE | 2018-06-16 16:01 | CONS ---
DATE OF ADMISSION: 06/08/2018 DATE OF CONSULTATION: 06/16/2018 Infectious disease consultation. REASON FOR CONSULTATION: Antibiotic management. HISTORY OF PRESENT ILLNESS: Lilliam Marin is a 42-year-old female admitted essentially on the of the month, complaining of shortness of breath, body aches and fevers for 3 days. Her past problems i nclude: 1. Asthma. 2. Diabetes. She comes in complaining of left-sided flank pain with fever and chills which started 3 days prior to admission. She also has cough with productive sputum. She did not get a flu shot this year. She i s homeless and does not have a primary doctor. PAST MEDICAL HISTORY: Operations: Status post x4. FAMILY HISTORY: Noncontributory except for diabetes mellitus. SOCIAL HISTORY: She does not smoke, drink or abuse drugs. ALLERGIES: NONE TO PENICILLIN, SULFA OR FOODS. MEDICATIONS: Per chart. REVIEW OF SYSTEMS: As per HPI. LABORATORY DATA: On admission, white count was 14.9, H and H of 13.6 and 42.0, platelet count 204,00 0. BUN and creatinine 10/0.53 and random glucose of 522. The patient was started on azithromycin an d ceftriaxone. IMAGING: Her chest x-ray showed diffuse bilateral infiltrates with more focal consolidation within t right lower, left upper and left lower lung zones. An abdominal ultrasound showed no evidence of cholelithiasis or acute cholecystitis. She has mild bilateral hydronephrosis, no obstructing renal c alculi by ultrasound, otherwise unremarkable abdominal ultrasound. HOSPITAL COURSE: The patient was felt to have DKA. DKA protocol with insulin drip was initiated. S he had severe sepsis secondary to underlying pneumonia. Cultures were drawn and are pending. Her bl ood cultures grew out corynebacterium species and again coag negative staph and methicillin-resistant Staphylococcus aureus. Urine grew out mixed gram-positive organisms. Her influenza A titers were negative. Blood cultures were negative. Patient was put on vancomycin a nd Zosyn. The patient now is seen by Dr. Ribeiro who notes that she presents with cough, congestion, subjective fever. Patient was found to have extensive bilateral infiltrates and some cavitating process. On a CT scan of the chest showed extensive bilateral multilobular pneumonia, multilobar pneumoni a with concern for developing areas of cavitation, possibly indicating necrotizing pneumonia, mild le ft pleural effusion, no evidence of mass or lymphadenopathy. She notes that she was tested for TB 1 year ago and was negative. She had methicillin-resistant Staphylococcus aureus bacteremia. She has a history of alcoholism, use of methamphetamines and tobacco use. ALLERGIES: NONE TO PENICILLIN, SULFA OR FOODS. MEDICATIONS: Per chart. REVIEW OF SYSTEMS: As per HPI. PHYSICAL EXAMINATION: She is a chronically ill-appearing female who is comfortable at rest, in no acu te distress. VITAL SIGNS: Stable. She is afebrile. She is on 2 liters nasal cannula. SKIN: Without generalized rash. HEENT: Within normal limits. NECK: Supple. LYMPH NODES: None palpable. CHEST: Decreased breath sounds at the bases. HEART: Without murmur or gallop. ABDOMEN: Soft, nontender, without organosplenomegaly or masses. EXTREMITIES: Without cyanosis, clubbing, or edema. RECTAL AND GENITAL: Deferred. NEUROLOGIC: No focal neurological abnormalities. IMPRESSION AND PLAN: The patient has extensive bilateral multilobar pneumonia with areas of cavitati on, most likely secondary to bacterial process. Differential includes tuberculosis and a sputum for cultures for AFB were done as well as QuantiFERON Gold, coccidioidomycosis serologies were done. The patient was placed on respiratory isolation, currently on vancomycin and Zosyn. She probably should be tested for HIV as well if that was not done. We will continue her on current therapy. I will di ctate my findings to the hospitalist, to Dr. Durham and to Dr. Ribeiro. Dictated By: AZRA CAVANAUGH MD, JD/NTS Conf#: [id number] DID#: [id number] CC: STEVE DURHAM MD; ALICIA RIBEIRO MD; PEPE GASTON MD;*EndCC*
[2018-06-16] MEDS: metFORMIN 500 MG TAB PO SCH (18:13)
[2018-06-17] VITALS (10 sets, daily range): BP systolic 116–132; BP diastolic 58–86; PULSE 109–125; RESP 18–20
[2018-06-17] MEDS: ACCU-CHEK XX SCH (02:00)
[2018-06-17] MEDS: PIPER-TAZO 3.375 GM IV (PMX) 100 ML IVPB SCH ×4 (06:06→18:16)
[2018-06-17] MEDS: VANCOMYCIN HCL 1.25 GM in SOD CHLORIDE 0.9% 250 ML IVPB SCH ×3 (06:06→20:41)
[2018-06-17] MEDS: PANTOPRAZOLE (EC) 40 MG TAB PO SCH (06:06)
[2018-06-17] MEDS: INSULIN ASPART [NOVOLOG] 3 ML PEN SC SCH ×4 (08:14→21:00)
[2018-06-17] MEDS: ASCORBIC ACID 500 MG TAB PO SCH (08:59)
[2018-06-17] MEDS: GUAIFENESIN/DM (SR) TAB PO SCH ×2 (08:59→20:39)
[2018-06-17] MEDS: metFORMIN 500 MG TAB PO SCH ×2 (08:59→17:27)
[2018-06-17] MEDS: GLIMEPIRIDE 2 MG TAB PO SCH ×2 (08:59→17:26)
[2018-06-17] MEDS: FERROUS SULFATE (EC) 325 MG TAB PO SCH (08:59)
--- NOTE | 2018-06-17 10:06 | PN ---
Date/Time of Note Date/Time of Note DATE: 06/17/18 TIME: 10:04 Objective Vitals Vital Signs Date Temp Pulse Resp B/P (MAP) Pulse Ox O2 O2 Flow FiO2 Time Delivery Rate 06/17/18 114 08:22 06/17/18 97.9 20 122/75 100 Room Air 07:12 (91) 06/17/18 2.0 04:00 06/14/18 21 21:38 Intake and Output 06/16/18 06/16/18 06/17/18 1515:00 23:00 07:00 IntakeIntake Total 200 ml BalanceBalance 200 ml Results Result Diagram: 06/17/18 0456 06/17/18 0456 Medications Medications Current Medications Ondansetron HCl (Zofran Inj) 4 mg Q6H PRN IV NAUSEA AND/OR VOMITING; Start 06/09/18 at 00:30 Ipratropium [place] (Atrovent 0.02% (Neb)) 0.5 mg Q2H RESP THERAPY PRN NEB SHORTNESS OF BREATH Last administered on 06/14/18at 21:38; Admin Dose 0.5 MG; Start 06/09/18 at 00:30 Acetaminophen (Tylenol Liquid) 650 mg Q6H PRN PO PAIN LEVEL 1-3 OR FEVER Last administered on 06/14/18at 21:16; Admin Dose 650 MG; Start 06/09/18 at 00:30 Docusate Sodium (Colace) 100 mg Q12H PRN PO CONSTIPATION; Start 06/09/18 at 00:30 Bisacodyl (Dulcolax) 5 mg DAILY PRN PO CONSTIPATION; Start 06/09/18 at 00:30 Pantoprazole (Protonix Tab) 40 mg DAILY@06 PO Last administered on 06/17/18at 06:06; Admin Dose 40 MG; Start 06/09/18 at 06:00 Diagnostic Test (Pha) (Accu-Chek) 1 ea 02 XX Last administered on 06/17/18at 02:00; Admin Dose 1 EA; Start 06/10/18 at 02:00 Insulin Aspart (Novolog Insulin Pen) NOVOLOG *MILD* ALGORITHM WITH MEALS BEDTIME SC Last administered on 06/17/18at 08:14; Admin Dose 5 UNIT; Start 06/09/18 at 18:00 Miscellaneous Information 1 ea NOTE XX ; Start 06/09/18 at 14:30 Glucose (Glutose) 15 gm Q15M PRN PO DECREASED GLUCOSE; Start 06/09/18 at 14:30 Glucose (Glutose) 22.5 gm Q15M PRN PO DECREASED GLUCOSE; Start 06/09/18 at 14:30 Dextrose (D50w Syringe) 25 ml Q15M PRN IV DECREASED GLUCOSE Last administered on 06/15/18at 20:53; Admin Dose 25 ML; Start 06/09/18 at 14:30 Dextrose (D50w Syringe) 50 ml Q15M PRN IV DECREASED GLUCOSE; Start 06/09/18 at 14:30 Glucagon (Glucagen) 1 mg Q15M PRN IM DECREASED GLUCOSE; Start 06/09/18 at 14:30 Glucose (Glutose) 15 gm Q15M PRN BUCCAL DECREASED GLUCOSE; Start 06/09/18 at 14:30 Vancomycin HCl (Vanco Iv Per Pharmacy) VANCOMYCIN PER PHARMACY PER PROTOCOL XX ; Start 06/10/18 at 06:00 Vancomycin HCl 1.25 gm/Sodium Chloride 250 ml @ 83.333 mls/ hr Q8H IVPB Last administered on 06/17/18 06:06; Admin Dose 83.333 MLS/HR; Start 06/11/18 at 14:00 Guaifenesin/ Dextromethorphan (Robitussin Dm Liquid Cup) 5 ml Q4H PRN PO COUGH Last administered on 06/14/18 17:17; Admin Dose 5 ML; Start 06/11/18 at 11:30 Ferrous Sulfate (Ferrous Sulfate (Ec)) 325 mg DAILY PO Last administered on 06/17/18 08:59; Admin Dose 325 MG; Start 06/13/18 at 10:30; Stop 08/12/18 at 10:29 Glimepiride (Amaryl) 4 mg AC BREAKFAST DINNER PO Last administered on 06/17/18 08:59; Admin Dose 4 MG; Start 06/13/18 at 17:30 Levalbuterol (Xopenex Neb) 1.25 mg Q6H RESP THERAPY PRN HHN sob/wheezing Last administered on 06/14/18 21:38; Admin Dose 1.25 MG; Start 06/14/18 at 09:00 Guaifenesin/ Dextromethorphan (Mucinex Dm) 1 tab BID PO Last administered on 06/17/18 08:59; Admin Dose 1 TAB; Start 06/14/18 at 09:30 Piperacillin Sod/ Tazobactam Sod 100 ml @ 200 mls/hr Q6 IVPB Last administered on 06/17/18at 06:06; Admin Dose 200 MLS/HR; Start 06/15/18 at 13:00 Metformin HCl (Glucophage) 1,000 mg BID WITH MEALS PO Last administered on 06/17/18 08:59; Admin Dose 1,000 MG; Start 06/16/18 at 18:00 Ascorbic Acid (Vitamin C) 500 mg DAILY PO Last administered on 06/17/18 08:59; Admin Dose 500 MG; Start 06/17/18 at 09:00; Stop 08/16/18 at 08:59 VTE Prophylaxis Risk score (from Ns)>0 risk: 1 SCD applied (from [facility] [place] No SCD contraindication: other Lines/Catheters IV Catheter Type: Garcia in Place: No Assessment/Plan Hospital Course SUBJECTIVE: + Nonproductive cough. But improved since yesterday OBJECTIVE: Vital signs-see below PHYSICAL EXAM: Constitutional: Well-developed, adequately built, lying in bed comfortably. Psych: nl mood/affect, no complaints Head: atraumatic, normocephalic Eyes: nl conjunctiva, nl sclera ENMT: mucosa pink and moist, nl external ears & nose Neck: non-tender, supple Respiratory: Mild wheezing bilaterally, normal air movement Cardiovascular: nl pulses, regular rate and rhythm Gastrointestinal: non-tender, soft, bowel sounds active in all 4 quadrants. Musculoskeletal/extremities: nl extremities to inspection, motor strength equal bilaterally, no focal deficit. Normal pulses,no cyanosis, no edema. Neurological: Alert oriented 3,nl speech, nl strength Skin: nl turgor ASSESSMENT/PLAN:42-year-old female who is also homeless, with a history of type 2 diabetes, noncompliance, admitted with fevers/cough/body aches.. also found to have DKA and sepsis with pneumonia. 1. Sepsis with MRSA bacteremia -Most likely culprit : Pneumonia. -Leukocytosis trended down today. Continue Zosyn and vancomycin. Tachycardia -Asymptomatic, no sense of palpitations, patient is comfortable -Secondary to above sepsis with bacteremia and pneumonia 2. 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 On insulin and glimepiride. -Diabetic education has been requested 3. Extensive bilateral multilobar pneumonia .CT concerning for developing cavitation/necrotizing pna.... -Infectious disease and pulmonary on board, ruling out cavitary lesion issues -Continue broad-spectrum antimicrobials. -Sputum culture 4. Homelessness -insulation worker apprentice follow-up 5. History of meth abuse -Patient states last use was 2 weeks ago. Counseled on cessation. 6. Tobacco use -Cessation advised. 7. Iron Deficient anemia. -Continue oral iron. -H&H stable. 8. Mild asthma. -Currently stable. At this time, this is controlled with as needed SELMA 11. Asymptomatic Sinus tachycardia, -stable DVT prophylaxis: SCDs/ambulation. PUD prophylaxis: Not indicated CODE STATUS: Full code Diet: Carbohydrate controlled. Disposition: Overall, appears to be mildly improving from the respiratory status, however will need extensive workup from infectious disease and pulmonology before discharge., Rule out TB and other infectious causes. HAYDEE RAYO Jun 17, 2018 10:06
--- NOTE | 2018-06-17 11:04 | CONS ---
Assessment/Plan Assessment/Plan Assessment/Plan (Daily) Assessment and recommendations; 1. Patient admitted with bilateral upper lobe cavitary pneumonia with a history of poorly controlled asthma. Currently on appropriate antimicrobial regimen. QuantiFERON TB as well as coccidiomycosis serology is pending. 2. With a history of asthma and multiple cavitations consideration should be made for possible Aspergillus infection. Continue current supportive care. Add voriconazole. Further recommendations once serology and sputum results are obtained. Consultation Date/Type/Reason Admit Date/Time Jun 08, 2018 at 23:53 Initial Consult Date Requesting Provider: ARIS ANDERSEN Date/Time of Note DATE: 06/17/18 TIME: 11:02 24 HR Interval Summary Free Text/Dictation Pulmonary Exam/Review of Systems Exam Vitals Vital Signs Date Temp Pulse Resp B/P (MAP) Pulse Ox O2 O2 Flow FiO2 Time Delivery Rate 06/17/18 Nasal 2.0 08:30 Cannula 06/17/18 114 08:22 06/17/18 97.9 20 122/75 100 07:12 (91) 06/14/18 21 21:38 Intake and Output 06/16/18 06/16/18 06/17/18 1515:00 23:00 07:00 IntakeIntake Total 200 ml BalanceBalance 200 ml Exam Patient condition is stable. Complains of cough and sputum production. Denies any hemoptysis. General exam; young female, awake alert, currently in no distress. H EENT exam; supple neck, no JVD. No lymphadenopathy. Midline trachea. No thyromegaly. Patient has fair dentition. No neck masses. Chest exam; diminished breath sounds bilaterally. No added sounds. S1-S2 audible, no murmurs. Regular rhythm. Abdomen exam; soft, nontender. No organomegaly. Bowel sounds audible. Extremity exam; peripheral edema clubbing. LASTING MACHINE OPERATOR exam; no focal deficit. Results Result Diagram: 06/17/18 0456 06/17/18 0456 Results 24hrs Laboratory Tests Test 06/16/18 11:49 06/16/18 17:41 06/16/18 21:11 06/17/18 03:13 Bedside Glucose 217 333 H 266 H 236 H Test 06/17/18 04:56 06/17/18 07:54 White Blood Count 17.8 H Red Blood Count 3.59 L Hemoglobin 9.9 L Hematocrit 31.2 L Mean Corpuscular 86.9 Volume Mean Corpuscular 27.6 L Hemoglobin Mean Corpuscular 31.7 L Hemoglobin Concent Red Cell 16.3 H Distribution Width Platelet Count 692 H Mean Platelet Volume 9.6 Immature 2.800 H Granulocytes % Neutrophils % 80.7 H Lymphocytes % 11.8 L Monocytes % 3.4 Eosinophils % 1.0 Basophils % 0.3 Nucleated Red Blood 0.0 Cells % Immature 0.490 H Granulocytes # Neutrophils # 14.4 H Lymphocytes # 2.1 Monocytes # 0.6 Eosinophils # 0.2 Basophils # 0.1 Nucleated Red Blood 0.0 Cells # Sodium Level 136 Potassium Level 4.4 Chloride Level 98 Carbon Dioxide Level 28 Anion Gap 10 Blood Urea Nitrogen 7 Creatinine 0.40 L Est Glomerular > 60 Filtrat Rate mL/min Glucose Level 260 #H Calcium Level 8.9 Bedside Glucose 328 H Medications Medication Current Medications Ondansetron HCl (Zofran Inj) 4 mg Q6H PRN IV NAUSEA AND/OR VOMITING; Start 06/09/18 at 00:30 Ipratropium [place] (Atrovent 0.02% (Neb)) 0.5 mg Q2H RESP THERAPY PRN NEB SHORTNESS OF BREATH Last administered on 06/14/18at 21:38; Admin Dose 0.5 MG; Start 06/09/18 at 00:30 Acetaminophen (Tylenol Liquid) 650 mg Q6H PRN PO PAIN LEVEL 1-3 OR FEVER Last administered on 06/14/18at 21:16; Admin Dose 650 MG; Start 06/09/18 at 00:30 Docusate Sodium (Colace) 100 mg Q12H PRN PO CONSTIPATION; Start 06/09/18 at 00:30 Bisacodyl (Dulcolax) 5 mg DAILY PRN PO CONSTIPATION; Start 06/09/18 at 00:30 Pantoprazole (Protonix Tab) 40 mg DAILY@06 PO Last administered on 06/17/18at 06:06; Admin Dose 40 MG; Start 06/09/18 at 06:00 Diagnostic Test (Pha) (Accu-Chek) 1 ea 02 XX Last administered on 06/17/18at 02:00; Admin Dose 1 EA; Start 06/10/18 at 02:00 Insulin Aspart (Novolog Insulin Pen) NOVOLOG *MILD* ALGORITHM WITH MEALS BEDTIME SC Last administered on 06/17/18 08:14; Admin Dose 5 UNIT; Start 06/09/18 at 18:00 Miscellaneous Information 1 ea NOTE XX ; Start 06/09/18 at 14:30 Glucose (Glutose) 15 gm Q15M PRN PO DECREASED GLUCOSE; Start 06/09/18 at 14:30 Glucose (Glutose) 22.5 gm Q15M PRN PO DECREASED GLUCOSE; Start 06/09/18 at 14:30 Dextrose (D50w Syringe) 25 ml Q15M PRN IV DECREASED GLUCOSE Last administered on 06/15/18at 20:53; Admin Dose 25 ML; Start 06/09/18 at 14:30 Dextrose (D50w Syringe) 50 ml Q15M PRN IV DECREASED GLUCOSE; Start 06/09/18 at 14:30 Glucagon (Glucagen) 1 mg Q15M PRN IM DECREASED GLUCOSE; Start 06/09/18 at 14:30 Glucose (Glutose) 15 gm Q15M PRN BUCCAL DECREASED GLUCOSE; Start 06/09/18 at 14:30 Vancomycin HCl (Vanco Iv Per Pharmacy) VANCOMYCIN PER PHARMACY PER PROTOCOL XX ; Start 06/10/18 at 06:00 Vancomycin HCl 1.25 gm/Sodium Chloride 250 ml @ 83.333 mls/ hr Q8H IVPB Last administered on 06/17/18 06:06; Admin Dose 83.333 MLS/HR; Start 06/11/18 at 14:00 Guaifenesin/ Dextromethorphan (Robitussin Dm Liquid Cup) 5 ml Q4H PRN PO COUGH Last administered on 06/14/18 17:17; Admin Dose 5 ML; Start 06/11/18 at 11:30 Ferrous Sulfate (Ferrous Sulfate (Ec)) 325 mg DAILY PO Last administered on 06/17/18 08:59; Admin Dose 325 MG; Start 06/13/18 at 10:30; Stop 08/12/18 at 10:29 Glimepiride (Amaryl) 4 mg AC BREAKFAST DINNER PO Last administered on 06/17/18 08:59; Admin Dose 4 MG; Start 06/13/18 at 17:30 Levalbuterol (Xopenex Neb) 1.25 mg Q6H RESP THERAPY PRN HHN sob/wheezing Last administered on 06/14/18at 21:38; Admin Dose 1.25 MG; Start 06/14/18 at 09:00 Guaifenesin/ Dextromethorphan (Mucinex Dm) 1 tab BID PO Last administered on 06/17/18 08:59; Admin Dose 1 TAB; Start 06/14/18 at 09:30 Piperacillin Sod/ Tazobactam Sod 100 ml @ 200 mls/hr Q6 IVPB Last administered on 06/17/18 06:06; Admin Dose 200 MLS/HR; Start 06/15/18 at 13:00 Metformin HCl (Glucophage) 1,000 mg BID WITH MEALS PO Last administered on 06/17/18 08:59; Admin Dose 1,000 MG; Start 06/16/18 at 18:00 Ascorbic Acid (Vitamin C) 500 mg DAILY PO Last administered on 06/17/18 08:59; Admin Dose 500 MG; Start 06/17/18 at 09:00; Stop 08/16/18 at 08:59 JERAMIE YEAGER 30, 2018 11:04
--- NOTE | 2018-06-17 11:18 | CONS ---
Assessment/Plan Assessment/Plan Hospital Course (Demo Recall) ID PROGRESS NOTE CURRENT ABX: DAY # => Vanco IV + Zosyn + VFEND 06/17/18 0456 06/17/18 0456 24H INTERVAL SUMMARY * A/A/O - ambulatory in room, (+)Productive cough, denies hemoptysis * No fevers, mild tachycardia, without dyspnea on room air -- intermittent supplemental O2 via 2L NC DIAGNOSTIC IMAGING * 06/08/18 CXR: Diffuse bilateral infiltrates with more focal consolidation within the right lower, left upper and left lower lung zones. * 06/11/18 2D ECHO: No mention of vegetation. * 06/15/18 CT CHEST: IMPRESSION: * 1. Findings suggestive of extensive bilateral multilobar pneumonia, with concern for developing areas of cavitation, possibly indicating necrotizing pneumonia. Mild left pleural effusion. 2. No evidence of mass or lymphadenopathy. MICRO/OTHER * 06/08/18 BCX (+) MRSA 1/2 bottles == also (+)Corynebacterium & CoNS -- skin contaminants * 06/11/18 BCX (-) * Urine Cx (-) 24H * 06/16/18 RESPIRATORY CULTURE Preliminary Organism 1 NORMAL RESPIRATORY ARACELI QUANTITY SCANT GROWTH PHYSICAL EXAMINATION: GENERAL: VSS, NAD HEENT: AT, NC, anicteric, NECK: Supple, CHEST: Equal chest rise bilaterally, without dyspnea on observation HEART: Pulse RRR ABDOMEN: Soft / NT EXTREMITIES: Warm, dry SKIN: No rash, no diaphoresis ID ASSESSMENT 42 yo F admit with: 1. Sepsis with fevers, leukocytosis, tachycardia, associated w/ MRSA bacteremia on admission due to #2 * 06/11/18 2D ECHO: No mention of vegetation. 2. Extensive bilateral multilobar pneumonia with areas of cavitation, most likely secondary to bacterial process. * CT concerning for developing cavitation/necrotizing pna.... * r/o MTB, opportunistic, fungal vs aspergillosis 3. COPD Asthmatic exacerbation 4. Tobaccoism 5. History of recent meth abuse 6. Iron Deficient anemia. 7. Poorly controlled diabetes 8. Homelessness (-)MRSA Nares ABX ALLERGIES: KNDA INVASIVES: PIV CURRENT ABX: DAY # => Vanco IV + Zosyn + VFEND ID RECOMMENDATIONS/PLAN: 1. Continue current ABX 2. Obtain 3 sputum for AFB r/o active TB, QTF Gold serology pending, Cocci pending . Consultation Date/Type/Reason Admit Date/Time Jun 08, 2018 at 23:53 Initial Consult Date Requesting Provider: ARIS ANDERSEN Date/Time of Note DATE: 06/17/18 TIME: 11:18 Exam/Review of Systems Exam Vitals Vital Signs Date Temp Pulse Resp B/P (MAP) Pulse Ox O2 O2 Flow FiO2 Time Delivery Rate 06/17/18 97.8 110 18 116/69 96 Room Air 11:04 (85) 06/17/18 2.0 08:30 06/14/18 21 21:38 Intake and Output 06/16/18 06/16/18 06/17/18 1515:00 23:00 07:00 IntakeIntake Total 200 ml BalanceBalance 200 ml Results Result Diagram: 06/17/18 0456 06/17/18 0456 Results 24hrs Laboratory Tests Test 06/16/18 11:49 06/16/18 17:41 06/16/18 21:11 06/17/18 03:13 Bedside Glucose 217 333 H 266 H 236 H Test 06/17/18 04:56 06/17/18 07:54 White Blood Count 17.8 H Red Blood Count 3.59 L Hemoglobin 9.9 L Hematocrit 31.2 L Mean Corpuscular 86.9 Volume Mean Corpuscular 27.6 L Hemoglobin Mean Corpuscular 31.7 L Hemoglobin Concent Red Cell 16.3 H Distribution Width Platelet Count 692 H Mean Platelet Volume 9.6 Immature 2.800 H Granulocytes % Neutrophils % 80.7 H Lymphocytes % 11.8 L Monocytes % 3.4 Eosinophils % 1.0 Basophils % 0.3 Nucleated Red Blood 0.0 Cells % Immature 0.490 H Granulocytes # Neutrophils # 14.4 H Lymphocytes # 2.1 Monocytes # 0.6 Eosinophils # 0.2 Basophils # 0.1 Nucleated Red Blood 0.0 Cells # Sodium Level 136 Potassium Level 4.4 Chloride Level 98 Carbon Dioxide Level 28 Anion Gap 10 Blood Urea Nitrogen 7 Creatinine 0.40 L Est Glomerular > 60 Filtrat Rate mL/min Glucose Level 260 #H Calcium Level 8.9 Bedside Glucose 328 H Medications Medication Current Medications Ondansetron HCl (Zofran Inj) 4 mg Q6H PRN IV NAUSEA AND/OR VOMITING; Start 06/09/18 at 00:30 Ipratropium [place] (Atrovent 0.02% (Neb)) 0.5 mg Q2H RESP THERAPY PRN NEB SHORTNESS OF BREATH Last administered on 06/14/18at 21:38; Admin Dose 0.5 MG; Start 06/09/18 at 00:30 Acetaminophen (Tylenol Liquid) 650 mg Q6H PRN PO PAIN LEVEL 1-3 OR FEVER Last administered on 06/14/18at 21:16; Admin Dose 650 MG; Start 06/09/18 at 00:30 Docusate Sodium (Colace) 100 mg Q12H PRN PO CONSTIPATION; Start 06/09/18 at 00:30 Bisacodyl (Dulcolax) 5 mg DAILY PRN PO CONSTIPATION; Start 06/09/18 at 00:30 Pantoprazole (Protonix Tab) 40 mg DAILY@06 PO Last administered on 06/17/18at 06:06; Admin Dose 40 MG; Start 06/09/18 at 06:00 Diagnostic Test (Pha) (Accu-Chek) 1 ea 02 XX Last administered on 06/17/18at 02:00; Admin Dose 1 EA; Start 06/10/18 at 02:00 Insulin Aspart (Novolog Insulin Pen) NOVOLOG *MILD* ALGORITHM WITH MEALS BEDTIME SC Last administered on 06/17/18 08:14; Admin Dose 5 UNIT; Start 06/09/18 at 18:00 Miscellaneous Information 1 ea NOTE XX ; Start 06/09/18 at 14:30 Glucose (Glutose) 15 gm Q15M PRN PO DECREASED GLUCOSE; Start 06/09/18 at 14:30 Glucose (Glutose) 22.5 gm Q15M PRN PO DECREASED GLUCOSE; Start 06/09/18 at 14 :30 Dextrose (D50w Syringe) 25 ml Q15M PRN IV DECREASED GLUCOSE Last administered on 06/15/18at 20:53; Admin Dose 25 ML; Start 06/09/18 at 14:30 Dextrose (D50w Syringe) 50 ml Q15M PRN IV DECREASED GLUCOSE; Start 06/09/18 at 14:30 Glucagon (Glucagen) 1 mg Q15M PRN IM DECREASED GLUCOSE; Start 06/09/18 at 14:30 Glucose (Glutose) 15 gm Q15M PRN BUCCAL DECREASED GLUCOSE; Start 06/09/18 at 14:30 Vancomycin HCl (Vanco Iv Per Pharmacy) VANCOMYCIN PER PHARMACY PER PROTOCOL XX ; Start 06/10/18 at 06:00 Vancomycin HCl 1.25 gm/Sodium Chloride 250 ml @ 83.333 mls/ hr Q8H IVPB Last administered on 06/17/18 06:06; Admin Dose 83.333 MLS/HR; Start 06/11/18 at 14:00 Guaifenesin/ Dextromethorphan (Robitussin Dm Liquid Cup) 5 ml Q4H PRN PO COUGH Last administered on 06/14/18 17:17; Admin Dose 5 ML; Start 06/11/18 at 11:30 Ferrous Sulfate (Ferrous Sulfate (Ec)) 325 mg DAILY PO Last administered on 08:59; Admin Dose 325 MG; Start 06/13/18 at 10:30; Stop 08/12/18 at 10:29 Glimepiride (Amaryl) 4 mg AC BREAKFAST DINNER PO Last administered on 06/17/18 08:59; Admin Dose 4 MG; Start 06/13/18 at 17:30 Levalbuterol (Xopenex Neb) 1.25 mg Q6H RESP THERAPY PRN HHN sob/wheezing Last administered on 06/14/18 21:38; Admin Dose 1.25 MG; Start 06/14/18 at 09:00 Guaifenesin/ Dextromethorphan (Mucinex Dm) 1 tab BID PO Last administered on 06/17/18 08:59; Admin Dose 1 TAB; Start 06/14/18 at 09:30 Piperacillin Sod/ Tazobactam Sod 100 ml @ 200 mls/hr Q6 IVPB Last administered on 06/17/18 06:06; Admin Dose 200 MLS/HR; Start 06/15/18 at 13:00 Metformin HCl (Glucophage) 1,000 mg BID WITH MEALS PO Last administered on 06/17/18 08:59; Admin Dose 1,000 MG; Start 06/16/18 at 18:00 Ascorbic Acid (Vitamin C) 500 mg DAILY PO Last administered on 06/17/18 08:59; Admin Dose 500 MG; Start 06/17/18 at 09:00; Stop 08/16/18 at 08:59 Voriconazole (Vfend) 200 mg BID PO ; Start 06/17/18 at 12:30 MINNIE VICTORIA NP Jun 17, 2018 11:18
[2018-06-17] MEDS: VORICONAZOLE 200 MG TAB PO SCH ×2 (12:12→20:39)
--- NOTE | 2018-06-17 13:00 | CONS ---
Assessment/Plan Assessment/Plan Problems: (1) Diabetes mellitus type 2 in nonobese Status: Chronic Comment: Sugar control without insulin is in adequate. Other oral agents can be used are very expensive and therefore not likely to be able to be obtained by this homeless patient. Generic Novolin NPH is cheap and far cheaper than the other basal insulins. I will place her on NPH 12 units at bedtime deceiving get her sugars a bit closer. (2) Pneumonia Status: Acute Comment: As per consult Qualifiers: Pneumonia type: due to unspecified organism Laterality: left Lung location: upper lobe of lung Qualified Codes: J18.1 - Lobar pneumonia, unspec ified organism (3) MRSA bacteremia Status: Acute Consultation Date/Type/Reason Admit Date/Time Jun 08, 2018 at 23:53 Initial Consult Date June 09, 2018 Type of Consult Endocrinology Reason for Consultation [place]ies mellitus type II out of control; MRSA septicemia; cavitary lung disease; Requesting Provider: ARIS ANDERSEN Date/Time of Note DATE: 06/17/18 TIME: 12:59 24 HR Interval Summary Free Text/Dictation Patient reports she is about the same Exam/Review of Systems Exam Vitals Vital Signs Date Temp Pulse Resp B/P (MAP) Pulse Ox O2 O2 Flow FiO2 Time Delivery Rate 06/17/18 111 12:06 06/17/18 97.8 18 116/69 96 Room Air 11:04 (85) 06/17/18 2.0 08:30 06/14/18 21 21:38 Intake and Output 06/16/18 06/16/18 06/17/18 1414:59 22:59 06:59 IntakeIntake Total 200 ml BalanceBalance 200 ml Constitutional: alert, oriented Cardiovascular: regular rate and rhythm, nl pulses Gastrointestinal: soft, nl liver, spleen, non-tender Results Result Diagram: 06/17/18 0456 06/17/18 0456 Results 24hrs Laboratory Tests Test 06/16/18 17:41 06/16/18 21:11 06/17/18 03:13 06/17/18 04:56 Bedside Glucose 333 H 266 H 236 H White Blood Count 17.8 H Red Blood Count 3.59 L Hemoglobin 9.9 L Hematocrit 31.2 L Mean Corpuscular 86.9 Volume Mean Corpuscular 27.6 L Hemoglobin Mean Corpuscular 31.7 L Hemoglobin Concent Red Cell 16.3 H Distribution Width Platelet Count 692 H Mean Platelet Volume 9.6 Immature 2.800 H Granulocytes % Neutrophils % 80.7 H Lymphocytes % 11.8 L Monocytes % 3.4 Eosinophils % 1.0 Basophils % 0.3 Nucleated Red Blood 0.0 Cells % Immature 0.490 H Granulocytes # Neutrophils # 14.4 H Lymphocytes # 2.1 Monocytes # 0.6 Eosinophils # 0.2 Basophils # 0.1 Nucleated Red Blood 0.0 Cells # Sodium Level 136 Potassium Level 4.4 Chloride Level 98 Carbon Dioxide Level 28 Anion Gap 10 Blood Urea Nitrogen 7 Creatinine 0.40 L Est Glomerular > 60 Filtrat Rate mL/min Glucose Level 260 #H Calcium Level 8.9 Test 06/17/18 07:54 06/17/18 11:43 Bedside Glucose 328 H 330 H Medications Medication Current Medications Ondansetron HCl (Zofran Inj) 4 mg Q6H PRN IV NAUSEA AND/OR VOMITING; Start 06/09/18 at 00:30 Ipratropium [place] (Atrovent 0.02% (Neb)) 0.5 mg Q2H RESP THERAPY PRN NEB SHORTNESS OF BREATH Last administered on 06/14/18at 21:38; Admin Dose 0.5 MG; Start 06/09/18 at 00:30 Acetaminophen (Tylenol Liquid) 650 mg Q6H PRN PO PAIN LEVEL 1-3 OR FEVER Last administered on 06/14/18at 21:16; Admin Dose 650 MG; Start 06/09/18 at 00:30 Docusate Sodium (Colace) 100 mg Q12H PRN PO CONSTIPATION; Start 06/09/18 at 00:30 Bisacodyl (Dulcolax) 5 mg DAILY PRN PO CONSTIPATION; Start 06/09/18 at 00:30 Pantoprazole (Protonix Tab) 40 mg DAILY@06 PO Last administered on 06/17/18 06:06; Admin Dose 40 MG; Start 06/09/18 at 06:00 Diagnostic Test (Pha) (Accu-Chek) 1 ea 02 XX Last administered on 06/17/18 02:00; Admin Dose 1 EA; Start 06/10/18 at 02:00 Insulin Aspart (Novolog Insulin Pen) NOVOLOG *MILD* ALGORITHM WITH MEALS BEDTIME SC Last administered on 3/30/19at 12:00; Admin Dose 5 UNIT; Start 06/09/18 at 18:00 Miscellaneous Information 1 ea NOTE XX ; Start 06/09/18 at 14:30 Glucose (Glutose) 15 gm Q15M PRN PO DECREASED GLUCOSE; Start 06/09/18 at 14:30 Glucose (Glutose) 22.5 gm Q15M PRN PO DECREASED GLUCOSE; Start 06/09/18 at 14 :30 Dextrose (D50w Syringe) 25 ml Q15M PRN IV DECREASED GLUCOSE Last administered on 06/15/18at 20:53; Admin Dose 25 ML; Start 06/09/18 at 14:30 Dextrose (D50w Syringe) 50 ml Q15M PRN IV DECREASED GLUCOSE; Start 06/09/18 at 14:30 Glucagon (Glucagen) 1 mg Q15M PRN IM DECREASED GLUCOSE; Start 06/09/18 at 14:30 Glucose (Glutose) 15 gm Q15M PRN BUCCAL DECREASED GLUCOSE; Start 06/09/18 at 14:30 Vancomycin HCl (Vanco Iv Per Pharmacy) VANCOMYCIN PER PHARMACY PER PROTOCOL XX ; Start 06/10/18 at 06:00 Vancomycin HCl 1.25 gm/Sodium Chloride 250 ml @ 83.333 mls/ hr Q8H IVPB Last administered on 06/17/18 06:06; Admin Dose 83.333 MLS/HR; Start 06/11/18 at 14:00 Guaifenesin/ Dextromethorphan (Robitussin Dm Liquid Cup) 5 ml Q4H PRN PO COUGH Last administered on 06/14/18at 17:17; Admin Dose 5 ML; Start 06/11/18 at 11:30 Ferrous Sulfate (Ferrous Sulfate (Ec)) 325 mg DAILY PO Last administered on 08:59; Admin Dose 325 MG; Start 06/13/18 at 10:30; Stop 08/12/18 at 10:29 Glimepiride (Amaryl) 4 mg AC BREAKFAST DINNER PO Last administered on 06/17/18 08:59; Admin Dose 4 MG; Start 06/13/18 at 17:30 Levalbuterol (Xopenex Neb) 1.25 mg Q6H RESP THERAPY PRN HHN sob/wheezing Last administered on 06/14/18at 21:38; Admin Dose 1.25 MG; Start 06/14/18 at 09:00 Guaifenesin/ Dextromethorphan (Mucinex Dm) 1 tab BID PO Last administered on 06/17/18 08:59; Admin Dose 1 TAB; Start 06/14/18 at 09:30 Piperacillin Sod/ Tazobactam Sod 100 ml @ 200 mls/hr Q6 IVPB Last administered on 06/17/18at 11:56; Admin Dose 200 MLS/HR; Start 06/15/18 at 13:00 Metformin HCl (Glucophage) 1,000 mg BID WITH MEALS PO Last administered on 06/17/18 08:59; Admin Dose 1,000 MG; Start 06/16/18 at 18:00 Ascorbic Acid (Vitamin C) 500 mg DAILY PO Last administered on 06/17/18 08:59; Admin Dose 500 MG; Start 06/17/18 at 09:00; Stop 08/16/18 at 08:59 Voriconazole (Vfend) 200 mg BID PO Last administered on 06/17/18at 12:12; Admin Dose 200 MG; Start 06/17/18 at 12:30 STEVE AGGARWAL MD Jun 17, 2018 13:00
--- NOTE | 2018-06-17 18:11 | RADRPT ---
Vent Rate: 128 bpm RR Interval: 0 msec MS Interval: 130 msec QRS Duration: 76 msec QT Interval: 276 msec QTC Interval: 402 msec P-R-T [place]: 67 - 54 - 55 degrees Sinus tachycardia Nonspecific T wave abnormality Abnormal ECG Electronically Signed By: Gaston Townsend
[2018-06-17] MEDS: NPH, HUMAN INSULIN ISOPHANE 3ML VIAL SC SCH (21:07)
[2018-06-18] VITALS (13 sets, daily range): BP systolic 96–128; BP diastolic 64–84; PULSE 100–121; RESP 17–19
[2018-06-18] MEDS: PIPER-TAZO 3.375 GM IV (PMX) 100 ML IVPB SCH ×3 (00:57→12:05)
[2018-06-18] MEDS: ACCU-CHEK XX SCH (01:07)
[2018-06-18] MEDS: ACETAMINOPHEN 650MG/20.3ML CUP PO PRN (05:57)
[2018-06-18] MEDS: PANTOPRAZOLE (EC) 40 MG TAB PO SCH (05:58)
[2018-06-18] MEDS: VANCOMYCIN HCL 1.25 GM in SOD CHLORIDE 0.9% 250 ML IVPB SCH ×2 (05:58→14:46)
[2018-06-18] MEDS: GUAIFENESIN/DM 5ML CUP PO PRN (06:04)
[2018-06-18] MEDS: GLIMEPIRIDE 2 MG TAB PO SCH ×3 (07:00→16:54)
[2018-06-18] MEDS: metFORMIN 500 MG TAB PO SCH ×2 (07:48→17:14)
[2018-06-18] MEDS: INSULIN ASPART [NOVOLOG] 3 ML PEN SC SCH ×4 (07:51→20:42)
[2018-06-18] MEDS: GUAIFENESIN/DM (SR) TAB PO SCH ×2 (09:01→20:25)
[2018-06-18] MEDS: VORICONAZOLE 200 MG TAB PO SCH ×2 (09:01→20:25)
[2018-06-18] MEDS: FERROUS SULFATE (EC) 325 MG TAB PO SCH (09:02)
[2018-06-18] MEDS: ASCORBIC ACID 500 MG TAB PO SCH (09:02)
--- NOTE | 2018-06-18 10:16 | CONS ---
Assessment/Plan Assessment/Plan Assessment/Plan (Daily) Assessment and recommendations; 1. Patient with history of asthma admitted with bilateral upper lobe cavitary pneumonia currently on appropriate antimicrobial and antifungal regimen. 2. AFB stains as well as coccidiomycosis serology is pending. Continue current supportive care. Further recommendations once Gram stain as well as AFB stains and fungal serologies obtained. Obtain follow-up chest x-ray in 48 hours. Consultation Date/Type/Reason Admit Date/Time Jun 08, 2018 at 23:53 Initial Consult Date Type of Consult Pulmonary Reason for Consultation Patient's condition is stable. Complains of mild cough. General exam; young female, awake and alert. Currently in no distress. Requesting Provider: ARIS ANDERSEN Date/Time of Note DATE: 06/18/18 TIME: 10:14 Exam/Review of Systems Exam Vitals Vital Signs Date Temp Pulse Resp B/P (MAP) Pulse Ox O2 O2 Flow FiO2 Time Delivery Rate 06/18/18 108 08:42 06/18/18 98.5 19 123/79 93 07:57 (94) 06/18/18 Room Air 05:00 06/17/18 2.0 20:00 06/14/18 21 21:38 Intake and Output 06/17/18 06/17/18 06/18/18 1515:00 23:00 07:00 IntakeIntake Total 100 ml 1600 ml 600 ml BalanceBalance 100 ml 1600 ml 600 ml Exam H EENT exam; supple neck, no JVD. No lymphadenopathy. Midline trachea. No thyromegaly. Patient has fair dentition. Chest exam; diminished but clear breath sounds. No added sounds. S1-S2 audible, no murmurs. Regular rhythm. Abdomen exam; soft, no organomegaly. Bowel sounds audible. Extremity exam; no peripheral edema clubbing. COSMETOLOGY EDUCATOR exam; no focal deficit. Results Result Diagram: 06/18/1853206/18/18532 Results 24hrs Laboratory Tests Test 06/17/18 11:43 06/17/18 17:24 06/17/18 20:36 06/18/18 01:00 Bedside Glucose 330 H 279 H 188 99 Test 06/18/18 05:33 06/18/18 07:46 White Blood Count 18.0 H Red Blood Count 4.10 L Hemoglobin 11.1 L Hematocrit 35.7 L Mean Corpuscular 87.1 Volume Mean Corpuscular 27.1 L Hemoglobin Mean Corpuscular 31.1 L Hemoglobin Concent Red Cell 16.6 H Distribution Width Platelet Count 824 H Mean Platelet Volume 9.7 Immature 1.800 H Granulocytes % Neutrophils % 79.5 H Lymphocytes % 14.0 L Monocytes % 3.0 Eosinophils % 1.1 Basophils % 0.6 Nucleated Red Blood 0.0 Cells % Immature 0.320 H Granulocytes # Neutrophils # 14.3 H Lymphocytes # 2.5 Monocytes # 0.5 Eosinophils # 0.2 Basophils # 0.1 Nucleated Red Blood 0.0 Cells # Sodium Level 137 Potassium Level 4.4 Chloride Level 99 Carbon Dioxide Level 29 Anion Gap 9 Blood Urea Nitrogen 11 Creatinine 0.40 L Est Glomerular > 60 Filtrat Rate mL/min Glucose Level 201 Calcium Level 9.7 Phosphorus Level 5.0 H Magnesium Level 1.8 Bedside Glucose 148 Medications Medication Current Medications Ondansetron HCl (Zofran Inj) 4 mg Q6H PRN IV NAUSEA AND/OR VOMITING; Start 06/09/18 at 00:30 Ipratropium [place] (Atrovent 0.02% (Neb)) 0.5 mg Q2H RESP THERAPY PRN NEB SHORTNESS OF BREATH Last administered on 06/14/18at 21:38; Admin Dose 0.5 MG; Start 06/09/18 at 00:30 Acetaminophen (Tylenol Liquid) 650 mg Q6H PRN PO PAIN LEVEL 1-3 OR FEVER Last administered on 06/18/18at 05:57; Admin Dose 650 MG; Start 06/09/18 at 00:30 Docusate Sodium (Colace) 100 mg Q12H PRN PO CONSTIPATION; Start 06/09/18 at 00:30 Bisacodyl (Dulcolax) 5 mg DAILY PRN PO CONSTIPATION; Start 06/09/18 at 00:30 Pantoprazole (Protonix Tab) 40 mg DAILY@06 PO Last administered on 06/18/18at 05:58; Admin Dose 40 MG; Start 06/09/18 at 06:00 Diagnostic Test (Pha) (Accu-Chek) 1 ea 02 XX Last administered on 06/17/18at 02:00; Admin Dose 1 EA; Start 06/10/18 at 02:00 Insulin Aspart (Novolog Insulin Pen) NOVOLOG *MILD* ALGORITHM WITH MEALS BEDTIME SC Last administered on 06/18/18 07:51; Admin Dose 1 UNIT; Start 06/09/18 at 18:00 Miscellaneous Information 1 ea NOTE XX ; Start 06/09/18 at 14:30 Glucose (Glutose) 15 gm Q15M PRN PO DECREASED GLUCOSE; Start 06/09/18 at 14:30 Glucose (Glutose) 22.5 gm Q15M PRN PO DECREASED GLUCOSE; Start 06/09/18 at 14:30 Dextrose (D50w Syringe) 25 ml Q15M PRN IV DECREASED GLUCOSE Last administered on 06/15/18at 20:53; Admin Dose 25 ML; Start 06/09/18 at 14:30 Dextrose (D50w Syringe) 50 ml Q15M PRN IV DECREASED GLUCOSE; Start 06/09/18 at 14:30 Glucagon (Glucagen) 1 mg Q15M PRN IM DECREASED GLUCOSE; Start 06/09/18 at 14:30 Glucose (Glutose) 15 gm Q15M PRN BUCCAL DECREASED GLUCOSE; Start 06/09/18 at 14:30 Vancomycin HCl (Vanco Iv Per Pharmacy) VANCOMYCIN PER PHARMACY PER PROTOCOL XX ; Start 06/10/18 at 06:00 Vancomycin HCl 1.25 gm/Sodium Chloride 250 ml @ 83.333 mls/ hr Q8H IVPB Last administered on 06/18/18at 05:58; Admin Dose 83.333 MLS/HR; Start 06/11/18 at 14:00 Guaifenesin/ Dextromethorphan (Robitussin Dm Liquid Cup) 5 ml Q4H PRN PO COUGH Last administered on 06/18/18 06:04; Admin Dose 5 ML; Start 06/11/18 at 11:30 Ferrous Sulfate (Ferrous Sulfate (Ec)) 325 mg DAILY PO Last administered on 06/18/18 09:02; Admin Dose 325 MG; Start 06/13/18 at 10:30; Stop 08/12/18 at 10:29 Glimepiride (Amaryl) 4 mg AC BREAKFAST DINNER PO Last administered on 06/18/18 09:02; Admin Dose 4 MG; Start 06/13/18 at 17:30 Levalbuterol (Xopenex Neb) 1.25 mg Q6H RESP THERAPY PRN HHN sob/wheezing Last administered on 06/14/18at 21:38; Admin Dose 1.25 MG; Start 06/14/18 at 09:00 Guaifenesin/ Dextromethorphan (Mucinex Dm) 1 tab BID PO Last administered on 06/18/18 09:01; Admin Dose 1 TAB; Start 06/14/18 at 09:30 Piperacillin Sod/ Tazobactam Sod 100 ml @ 200 mls/hr Q6 IVPB Last administered on 06/18/18 05:31; Admin Dose 200 MLS/HR; Start 06/15/18 at 13:00 Metformin HCl (Glucophage) 1,000 mg BID WITH MEALS PO Last administered on 06/18/18 07:48; Admin Dose 1,000 MG; Start 06/16/18 at 18:00 Ascorbic Acid (Vitamin C) 500 mg DAILY PO Last administered on 06/18/18 09:02; Admin Dose 500 MG; Start 06/17/18 at 09:00; Stop 08/16/18 at 08:59 Voriconazole (Vfend) 200 mg BID PO Last administered on 06/18/18 09:01; Admin Dose 200 MG; Start 06/17/18 at 12:30 Insulin Human NPH (Humulin N) 12 unit DAILY@20 SC Last administered on 06/17/18 21:07; Admin Dose 12 UNIT; Start 06/17/18 at 20:00 JERAMIE YEAGER 31, 2018 10:15
--- NOTE | 2018-06-18 11:53 | PN ---
Date/Time of Note Date/Time of Note DATE: 06/18/18 TIME: 11:52 Objective Vitals Vital Signs Date Temp Pulse Resp B/P (MAP) Pulse Ox O2 O2 Flow FiO2 Time Delivery Rate 06/18/18 98.1 111 17 102/69 93 11:00 (80) 06/18/18 Nasal 2.0 08:00 Cannula 06/14/18 21 21:38 Intake and Output 06/17/18 06/17/18 06/18/18 1515:00 23:00 07:00 IntakeIntake Total 100 ml 1600 ml 600 ml BalanceBalance 100 ml 1600 ml 600 ml Results Result Diagram: 06/18/1853206/18/18532 Medications Medications Current Medications Ondansetron HCl (Zofran Inj) 4 mg Q6H PRN IV NAUSEA AND/OR VOMITING; Start 06/09/18 at 00:30 Ipratropium [place] (Atrovent 0.02% (Neb)) 0.5 mg Q2H RESP THERAPY PRN NEB SHORTNESS OF BREATH Last administered on 06/14/18at 21:38; Admin Dose 0.5 MG; Start 06/09/18 at 00:30 Acetaminophen (Tylenol Liquid) 650 mg Q6H PRN PO PAIN LEVEL 1-3 OR FEVER Last administered on 06/18/18at 05:57; Admin Dose 650 MG; Start 06/09/18 at 00:30 Docusate Sodium (Colace) 100 mg Q12H PRN PO CONSTIPATION; Start 06/09/18 at 00:30 Bisacodyl (Dulcolax) 5 mg DAILY PRN PO CONSTIPATION; Start 06/09/18 at 00:30 Pantoprazole (Protonix Tab) 40 mg DAILY@06 PO Last administered on 06/18/18at 05:58; Admin Dose 40 MG; Start 06/09/18 at 06:00 Diagnostic Test (Pha) (Accu-Chek) 1 ea 02 XX Last administered on 06/17/18at 02:00; Admin Dose 1 EA; Start 06/10/18 at 02:00 Insulin Aspart (Novolog Insulin Pen) NOVOLOG *MILD* ALGORITHM WITH MEALS BEDTIME SC Last administered on 06/18/18at 07:51; Admin Dose 1 UNIT; Start at 18:00 Miscellaneous Information 1 ea NOTE XX ; Start 06/09/18 at 14:30 Glucose (Glutose) 15 gm Q15M PRN PO DECREASED GLUCOSE; Start 06/09/18 at 14:30 Glucose (Glutose) 22.5 gm Q15M PRN PO DECREASED GLUCOSE; Start 06/09/18 at 14:30 Dextrose (D50w Syringe) 25 ml Q15M PRN IV DECREASED GLUCOSE Last administered on 06/15/18at 20:53; Admin Dose 25 ML; Start 06/09/18 at 14:30 Dextrose (D50w Syringe) 50 ml Q15M PRN IV DECREASED GLUCOSE; Start 06/09/18 at 14:30 Glucagon (Glucagen) 1 mg Q15M PRN IM DECREASED GLUCOSE; Start 06/09/18 at 14:30 Glucose (Glutose) 15 gm Q15M PRN BUCCAL DECREASED GLUCOSE; Start 06/09/18 at 14:30 Vancomycin HCl (Vanco Iv Per Pharmacy) VANCOMYCIN PER PHARMACY PER PROTOCOL XX ; Start 06/10/18 at 06:00 Vancomycin HCl 1.25 gm/Sodium Chloride 250 ml @ 83.333 mls/ hr Q8H IVPB Last administered on 06/18/18at 05:58; Admin Dose 83.333 MLS/HR; Start 06/11/18 at 14:00 Guaifenesin/ Dextromethorphan (Robitussin Dm Liquid Cup) 5 ml Q4H PRN PO COUGH Last administered on 06/18/18at 06:04; Admin Dose 5 ML; Start 06/11/18 at 11:30 Ferrous Sulfate (Ferrous Sulfate (Ec)) 325 mg DAILY PO Last administered on 06/18/18at 09:02; Admin Dose 325 MG; Start 06/13/18 at 10:30; Stop 08/12/18 at 10:29 Glimepiride (Amaryl) 4 mg AC BREAKFAST DINNER PO Last administered on 9at 09:02; Admin Dose 4 MG; Start 06/13/18 at 17:30 Levalbuterol (Xopenex Neb) 1.25 mg Q6H RESP THERAPY PRN HHN sob/wheezing Last administered on 06/14/18at 21:38; Admin Dose 1.25 MG; Start 06/14/18 at 09:00 Guaifenesin/ Dextromethorphan (Mucinex Dm) 1 tab BID PO Last administered on 06/18/18 09:01; Admin Dose 1 TAB; Start 06/14/18 at 09:30 Piperacillin Sod/ Tazobactam Sod 100 ml @ 200 mls/hr Q6 IVPB Last administered on 06/18/18 05:31; Admin Dose 200 MLS/HR; Start 06/15/18 at 13:00 Metformin HCl (Glucophage) 1,000 mg BID WITH MEALS PO Last administered on 06/18/18 07:48; Admin Dose 1,000 MG; Start 06/16/18 at 18:00 Ascorbic Acid (Vitamin C) 500 mg DAILY PO Last administered on 06/18/18 09:02; Admin Dose 500 MG; Start 06/17/18 at 09:00; Stop 08/16/18 at 08:59 Voriconazole (Vfend) 200 mg BID PO Last administered on 06/18/18 09:01; Admin Dose 200 MG; Start 06/17/18 at 12:30 Insulin Human NPH (Humulin N) 12 unit DAILY@20 SC Last administered on 06/17/18 21:07; Admin Dose 12 UNIT; Start 06/17/18 at 20:00 VTE Prophylaxis Risk score (from Ns)>0 risk: 2 SCD applied (from [facility] [place]): Yes SCD contraindication: other Lines/Catheters IV Catheter Type: Garcia in Place: No Assessment/Plan Hospital Course SUBJECTIVE: + Nonproductive cough. Mild worsening of the cough, Patient up all night, rough night. OBJECTIVE: Vital signs-see below PHYSICAL EXAM: Constitutional: Well-developed, adequately built, lying in bed comfortably. Psych: nl mood/affect, no complaints Head: atraumatic, normocephalic Eyes: nl conjunctiva, nl sclera ENMT: mucosa pink and moist, nl external ears & nose Neck: non-tender, supple Respiratory: Mild wheezing bilaterally, normal air movement Cardiovascular: nl pulses, regular rate and rhythm Gastrointestinal: non-tender, soft, bowel sounds active in all 4 quadrants. Musculoskeletal/extremities: nl extremities to inspection, motor strength equal bilaterally, no focal deficit. Normal pulses,no cyanosis, no edema. Neurological: Alert oriented 3,nl speech, nl strength Skin: nl turgor ASSESSMENT/PLAN:42-year-old female who is also homeless, with a history of type 2 diabetes, noncompliance, admitted with fevers/cough/body aches.. also found to have DKA and sepsis with pneumonia. 1. Sepsis with MRSA bacteremia -Most likely culprit : Pneumonia. -Leukocytosis trended down today. Continue Zosyn and vancomycin. Tachycardia -Asymptomatic, no sense of palpitations, patient is comfortable -Secondary to above sepsis with bacteremia and pneumonia 2. 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 On insulin and glimepiride. -Diabetic education has been requested 3. Extensive bilateral multilobar pneumonia .CT concerning for developing cavitation/necrotizing pna.... -Infectious disease and pulmonary on board, ruling out cavitary lesion issues -Continue broad-spectrum antimicrobials. -Sputum culture 4. 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 History of meth abuse -Patient states last use was 2 weeks ago. Counseled on cessation. 6. Tobacco use -Cessation advised. 7. Iron Deficient anemia. -Continue oral iron. -H&H stable. 8. Mild asthma. -Currently stable. At this time, this is controlled with as needed SELMA 11. Asymptomatic Sinus tachycardia, -stable Cough -Robitussin as needed as patient is symptomatic and had a rough evening with little sleep. DVT prophylaxis: SCDs/ambulation. PUD prophylaxis: Not indicated CODE STATUS: Full code Diet: Carbohydrate controlled. Disposition: Overall, appears to be mildly improving from the respiratory status, however will need extensive workup from infectious disease and pulmonology before discharge., Rule out TB and other infectious causes. HAYDEE RAYO Jun 18, 2018 11:53
[2018-06-18] MEDS ORDERED: GUAIFENESIN/CODEINE 5ML CUP PO PRN (12:00)
--- NOTE | 2018-06-18 12:46 | CONS ---
Assessment/Plan Assessment/Plan Problems: (1) Diabetes mellitus type 2 in nonobese Status: Chronic Comment: Control is coming into line. We will continue to make modest adjustments. Please note this regimen is picked due to logistical factors for the patient's outpatient life (2) MRSA bacteremia Status: Acute Comment: As per primary team. Fortunately repeat blood cultures are negative (3) Pneumonia Status: Acute Comment: As per pulmonary and primary team. Qualifiers: Pneumonia type: due to unspecified organism Laterality: left Lung location: upper lobe of lung Qualified Codes: J18.1 - Lobar pneumonia, unspecified organism Consultation Date/Type/Reason Admit Date/Time Jun 08, 2018 at 23:53 Initial Consult Date June 09, 2018 Type of Consult Endocrinology Reason for Consultation Diabetes mellitus type 2 out of control presenting with DKA in the setting of sepsis; MRSA bacteremia; Requesting Provider: ARIS ANDERSEN Date/Time of Note DATE: 06/18/18 TIME: 12:44 24 HR Interval Summary Free Text/Dictation Patient reports she is feeling better at this time. She does inform me that she got hungry and ate a lot of candy before which accounts for her sugars not being quite so controlled Constitutional: no complaints (No fevers chills or sweats) Detailed Summary Endocrine: no complaints Exam/Review of Systems Exam Vitals Vital Signs Date Temp Pulse Resp B/P (MAP) Pulse Ox O2 O2 Flow FiO2 Time Delivery Rate 06/18/18 115 12:20 06/18/18 98.1 17 102/69 93 11:00 (80) 06/18/18 Nasal 2.0 08:00 Cannula 06/14/18 21 21:38 Intake and Output 06/17/18 06/17/18 06/18/18 1515:00 23:00 07:00 IntakeIntake Total 100 ml 1600 ml 600 ml BalanceBalance 100 ml 1600 ml 600 ml Exam Pleasant female who appears more vibrant than she did a few days ago Neck: supple, non-tender Cardiovascular: regular rate and rhythm, nl pulses Gastrointestinal: soft, nl liver, spleen, non-tender Results Result Diagram: 06/18/18 0533 06/18/18 0533 Results 24hrs Laboratory Tests Test 06/17/18 17:24 06/17/18 20:36 06/18/18 01:00 06/18/18 05:33 Bedside Glucose 279 H 188 99 White Blood Count 18.0 H Red Blood Count 4.10 L Hemoglobin 11.1 L Hematocrit 35.7 L Mean Corpuscular 87.1 Volume Mean Corpuscular 27.1 L Hemoglobin Mean Corpuscular 31.1 L Hemoglobin Concent Red Cell 16.6 H Distribution Width Platelet Count 824 H Mean Platelet Volume 9.7 Immature 1.800 H Granulocytes % Neutrophils % 79.5 H Lymphocytes % 14.0 L Monocytes % 3.0 Eosinophils % 1.1 Basophils % 0.6 Nucleated Red Blood 0.0 Cells % Immature 0.320 H Granulocytes # Neutrophils # 14.3 H Lymphocytes # 2.5 Monocytes # 0.5 Eosinophils # 0.2 Basophils # 0.1 Nucleated Red Blood 0.0 Cells # Sodium Level 137 Potassium Level 4.4 Chloride Level 99 Carbon Dioxide Level 29 Anion Gap 9 Blood Urea Nitrogen 11 Creatinine 0.40 L Est Glomerular > 60 Filtrat Rate mL/min Glucose Level 201 Calcium Level 9.7 Phosphorus Level 5.0 H Magnesium Level 1.8 Test 06/18/18 07:46 06/18/18 12:05 Bedside Glucose 148 281 H Medications Medication Current Medications Ondansetron HCl (Zofran Inj) 4 mg Q6H PRN IV NAUSEA AND/OR VOMITING; Start 06/09/18 at 00:30 Ipratropium [place] (Atrovent 0.02% (Neb)) 0.5 mg Q2H RESP THERAPY PRN NEB SHORTNESS OF BREATH Last administered on 06/14/18at 21:38; Admin Dose 0.5 MG; Start 06/09/18 at 00:30 Acetaminophen (Tylenol Liquid) 650 mg Q6H PRN PO PAIN LEVEL 1-3 OR FEVER Last administered on 06/18/18at 05:57; Admin Dose 650 MG; Start 06/09/18 at 00:30 Docusate Sodium (Colace) 100 mg Q12H PRN PO CONSTIPATION; Start 06/09/18 at 00:30 Bisacodyl (Dulcolax) 5 mg DAILY PRN PO CONSTIPATION; Start 06/09/18 at 00:30 Pantoprazole (Protonix Tab) 40 mg DAILY@06 PO Last administered on 06/18/18at 05:58; Admin Dose 40 MG; Start 06/09/18 at 06:00 Diagnostic Test (Pha) (Accu-Chek) 1 ea 02 XX Last administered on 06/17/18at 02:00; Admin Dose 1 EA; Start 06/10/18 at 02:00 Insulin Aspart (Novolog Insulin Pen) NOVOLOG *MILD* ALGORITHM WITH MEALS BEDTIME SC Last administered on 06/18/18at 12:09; Admin Dose 4 UNIT; Start 06/09/18 at 18:00 Miscellaneous Information 1 ea NOTE XX ; Start 06/09/18 at 14:30 Glucose (Glutose) 15 gm Q15M PRN PO DECREASED GLUCOSE; Start 06/09/18 at 14:30 Glucose (Glutose) 22.5 gm Q15M PRN PO DECREASED GLUCOSE; Start 06/09/18 at 14:30 Dextrose (D50w Syringe) 25 ml Q15M PRN IV DECREASED GLUCOSE Last administered on 06/15/18at 20:53; Admin Dose 25 ML; Start 06/09/18 at 14:30 Dextrose (D50w Syringe) 50 ml Q15M PRN IV DECREASED GLUCOSE; Start 06/09/18 at 14:30 Glucagon (Glucagen) 1 mg Q15M PRN IM DECREASED GLUCOSE; Start 06/09/18 at 14:30 Glucose (Glutose) 15 gm Q15M PRN BUCCAL DECREASED GLUCOSE; Start 06/09/18 at 14:30 Vancomycin HCl (Vanco Iv Per Pharmacy) VANCOMYCIN PER PHARMACY PER PROTOCOL XX ; Start 06/10/18 at 06:00 Vancomycin HCl 1.25 gm/Sodium Chloride 250 ml @ 83.333 mls/ hr Q8H IVPB Last administered on 06/18/18at 05:58; Admin Dose 83.333 MLS/HR; Start 06/11/18 at 14:00 Ferrous Sulfate (Ferrous Sulfate (Ec)) 325 mg DAILY PO Last administered on 06/18/18at 09:02; Admin Dose 325 MG; Start 06/13/18 at 10:30; Stop 08/12/18 at 10:29 Glimepiride (Amaryl) 4 mg AC BREAKFAST DINNER PO Last administered on 06/18/18at 09:02; Admin Dose 4 MG; Start 06/13/18 at 17:30 Levalbuterol (Xopenex Neb) 1.25 mg Q6H RESP THERAPY PRN HHN sob/wheezing Last administered on 06/14/18at 21:38; Admin Dose 1.25 MG; Start 06/14/18 at 09:00 Guaifenesin/ Dextromethorphan (Mucinex Dm) 1 tab BID PO Last administered on 06/18/18 09:01; Admin Dose 1 TAB; Start 06/14/18 at 09:30 Piperacillin Sod/ Tazobactam Sod 100 ml @ 200 mls/hr Q6 IVPB Last administered on 06/18/18 12:05; Admin Dose 200 MLS/HR; Start 06/15/18 at 13:00 Metformin HCl (Glucophage) 1,000 mg BID WITH MEALS PO Last administered on 06/18/18 07:48; Admin Dose 1,000 MG; Start 06/16/18 at 18:00 Ascorbic Acid (Vitamin C) 500 mg DAILY PO Last administered on 06/18/18 09:02; Admin Dose 500 MG; Start 06/17/18 at 09:00; Stop 08/16/18 at 08:59 Voriconazole (Vfend) 200 mg BID PO Last administered on 06/18/18at 09:01; Admin Dose 200 MG; Start 06/17/18 at 12:30 Insulin Human NPH (Humulin N) 12 unit DAILY@20 SC Last administered on 06/17/18 21:07; Admin Dose 12 UNIT; Start 06/17/18 at 20:00 Guaifenesin/ Codeine Phosphate (Robitussin Ac Liquid Cup) 5 ml Q4H PRN PO cough; Start 06/18/18 at 12:00 STEVE AGGARWAL MD Jun 18, 2018 12:46
--- NOTE | 2018-06-18 14:51 | CONS ---
Assessment/Plan Assessment/Plan Hospital Course (Demo Recall) ID PROGRESS NOTE CURRENT ABX: DAY # => Vanco IV + Zosyn + VFEND 06/18/18 0533 06/18/18 0533 24H INTERVAL SUMMARY * Still w/(+)Productive cough, denies hemoptysis == she can't rest due to cough, not able to sleep * Today is day #10 OFF TOBACCO -- she wants to quit and is given encouragement * She complains of pain -- rib cage, ABD, joints due to PERSISTENT COUGHING * She also c/o anxiety and ruminating about severity of her condition -- consumed with "worry" -- she is given encouragement that ABX onboard and work up in process * No fevers, mild tachycardia, without dyspnea on room air -- intermittent s upplemental O2 via 2L NC * POOR IV ACCESS -- PIV sites keep blowing with Vanco DIAGNOSTIC IMAGING * 06/08/18 CXR: Diffuse bilateral infiltrates with more focal consolidation within the right lower, left upper and left lower lung zones. * 06/11/18 2D ECHO: No mention of vegetation. * 06/15/18 CT CHEST: IMPRESSION: * 1. Findings suggestive of extensive bilateral multilobar pneumonia, with concern for developing areas of cavitation, possibly indicating necrotizing pneumonia. Mild left pleural effusion. 2. No evidence of mass or lymphadenopathy. MICRO/OTHER * * 06/18/18 AFB -> * 06/17/18 AFB -> PENDING * 06/16/18 AFB (-) AFB SMEAR Final ACID FAST BACILLI NONE SEEN * 06/16/18 RESP CX: RESPIRATORY CULTURE Preliminary Organism 1 STAPHYLOCOCCUS AUREUS QUANTITY 1+ Organism 2 BERNABE ALBICANS QUANTITY SCANT GROWTH Organism 3 NORMAL RESPIRATORY ARACELI QUANTITY SCANT GROWTH * 06/08/18 BCX (+) MRSA 1/2 bottles == also (+)Corynebacterium & CoNS -- skin contaminants * 06/11/18 BCX (-) * Urine Cx (-) 24H * 06/16/18 RESPIRATORY CULTURE Preliminary Organism 1 NORMAL RESPIRATORY ARACELI QUANTITY SCANT GROWTH PHYSICAL EXAMINATION: GENERAL: VSS, NAD HEENT: AT, NC, anicteric, NECK: Supple, CHEST: Equal chest rise bilaterally, without dyspnea on observation HEART: Pulse RRR ABDOMEN: Soft / NT EXTREMITIES: Warm, dry SKIN: No rash, no diaphoresis ID ASSESSMENT 42 yo F admit with: 1. Sepsis with fevers, leukocytosis, tachycardia, associated w/ MRSA bacteremia on admission due to #2 * 06/11/18 2D ECHO: No mention of vegetation. 2. Extensive bilateral multilobar pneumonia with areas of cavitation, most likely secondary to bacterial process. * CT concerning for developing cavitation/necrotizing pna.... * r/o MTB, opportunistic, fungal vs aspergillosis 3. COPD Asthmatic exacerbation 4. Tobaccoism 5. History of recent meth abuse 6. Iron Deficient anemia. 7. Poorly controlled diabetes 8. Homelessness 9. POOR IV ACCESS -- PIV sites keep blowing with Vanco (-)MRSA Nares ABX ALLERGIES: KNDA INVASIVES: PIV CURRENT ABX: DAY # => Vanco IV + Zosyn + VFEND ID RECOMMENDATIONS/PLAN: 1. POOR IV ACCESS ==> SHE NEEDS A MIDLINE/PICC to continue Vanco IV and Zosyn Q6 == DC BOTH TODAY * Change Vanco IV to Zyvox PO Q12 * Change Zosyn IB Q6H to Ertapenem 1 GM IVPB once daily to preserve existing IV * Add Doxycycline for Atypical coverage and additional MRSA coverage now that ABX are PO instead of IV 2. Obtain 3 sputum for AFB r/o active TB, QTF Gold serology pending, Cocci pending, Legionella pending (although it is not FALL season) 3. TOBACCO CESSATION ENCOURAGED 4. Defer sleeper vs anti-anxiety vs Psych med and pain meds to primary team 5. POOR IV ACCESS -- PIV sites keep blowing with Vanco . Consultation Date/Type/Reason Admit Date/Time Jun 08, 2018 at 23:53 Initial Consult Date Requesting Provider: ARIS ANDERSEN Date/Time of Note DATE: 06/18/18 TIME: 14:41 Exam/Review of Systems Exam Vitals Vital Signs Date Temp Pulse Resp B/P (MAP) Pulse Ox O2 O2 Flow FiO2 Time Delivery Rate 06/18/18 115 12:20 06/18/18 98.1 17 102/69 93 11:00 (80) 06/18/18 Nasal 2.0 08:00 Cannula 06/14/18 21 21:38 Intake and Output 06/17/18 06/17/18 06/18/18 1414:59 22:59 06:59 IntakeIntake Total 100 ml 1600 ml 600 ml BalanceBalance 100 ml 1600 ml 600 ml Results Result Diagram: 06/18/18 0533 06/18/18 0533 Results 24hrs Laboratory Tests Test 06/17/18 17:24 06/17/18 20:36 06/18/18 01:00 06/18/18 05:33 Bedside Glucose 279 H 188 99 White Blood Count 18.0 H Red Blood Count 4.10 L Hemoglobin 11.1 L Hematocrit 35.7 L Mean Corpuscular 87.1 Volume Mean Corpuscular 27.1 L Hemoglobin Mean Corpuscular 31.1 L Hemoglobin Concent Red Cell 16.6 H Distribution Width Platelet Count 824 H Mean Platelet Volume 9.7 Immature 1.800 H Granulocytes % Neutrophils % 79.5 H Lymphocytes % 14.0 L Monocytes % 3.0 Eosinophils % 1.1 Basophils % 0.6 Nucleated Red Blood 0.0 Cells % Immature 0.320 H Granulocytes # Neutrophils # 14.3 H Lymphocytes # 2.5 Monocytes # 0.5 Eosinophils # 0.2 Basophils # 0.1 Nucleated Red Blood 0.0 Cells # Sodium Level 137 Potassium Level 4.4 Chloride Level 99 Carbon Dioxide Level 29 Anion Gap 9 Blood Urea Nitrogen 11 Creatinine 0.40 L Est Glomerular > 60 Filtrat Rate mL/min Glucose Level 201 Calcium Level 9.7 Phosphorus Level 5.0 H Magnesium Level 1.8 Test 06/18/18 07:46 06/18/18 12:05 Bedside Glucose 148 281 H Medications Medication Current Medications Ondansetron HCl (Zofran Inj) 4 mg Q6H PRN IV NAUSEA AND/OR VOMITING; Start 06/09/18 at 00:30 Ipratropium [place] (Atrovent 0.02% (Neb)) 0.5 mg Q2H RESP THERAPY PRN NEB SHORTNESS OF BREATH Last administered on 06/14/18at 21:38; Admin Dose 0.5 MG; Start 06/09/18 at 00:30 Acetaminophen (Tylenol Liquid) 650 mg Q6H PRN PO PAIN LEVEL 1-3 OR FEVER Last administered on 06/18/18at 05:57; Admin Dose 650 MG; Start 06/09/18 at 00:30 Docusate Sodium (Colace) 100 mg Q12H PRN PO CONSTIPATION; Start 06/09/18 at 00:30 Bisacodyl (Dulcolax) 5 mg DAILY PRN PO CONSTIPATION; Start 06/09/18 at 00:30 Pantoprazole (Protonix Tab) 40 mg DAILY@06 PO Last administered on 06/18/18at 05:58; Admin Dose 40 MG; Start 06/09/18 at 06:00 Diagnostic Test (Pha) (Accu-Chek) 1 ea 02 XX Last administered on 06/17/18at 02:00; Admin Dose 1 EA; Start 06/10/18 at 02:00 Insulin Aspart (Novolog Insulin Pen) NOVOLOG *MILD* ALGORITHM WITH MEALS BEDTIME SC Last administered on 06/18/18at 12:09; Admin Dose 4 UNIT; Start 06/09/18 at 18:00 Miscellaneous Information 1 ea NOTE XX ; Start 06/09/18 at 14:30 Glucose (Glutose) 15 gm Q15M PRN PO DECREASED GLUCOSE; Start 06/09/18 at 14:30 Glucose (Glutose) 22.5 gm Q15M PRN PO DECREASED GLUCOSE; Start 06/09/18 at 14:30 Dextrose (D50w Syringe) 25 ml Q15M PRN IV DECREASED GLUCOSE Last administered on 06/15/18at 20:53; Admin Dose 25 ML; Start 06/09/18 at 14:30 Dextrose (D50w Syringe) 50 ml Q15M PRN IV DECREASED GLUCOSE; Start 06/09/18 at 14:30 Glucagon (Glucagen) 1 mg Q15M PRN IM DECREASED GLUCOSE; Start 06/09/18 at 14:30 Glucose (Glutose) 15 gm Q15M PRN BUCCAL DECREASED GLUCOSE; Start 06/09/18 at 14:30 Vancomycin HCl (Vanco Iv Per Pharmacy) VANCOMYCIN PER PHARMACY PER PROTOCOL XX ; Start 06/10/18 at 06:00 Vancomycin HCl 1.25 gm/Sodium Chloride 250 ml @ 83.333 mls/ hr Q8H IVPB Last administered on 06/18/18at 05:58; Admin Dose 83.333 MLS/HR; Start 06/11/18 at 14:00 Ferrous Sulfate (Ferrous Sulfate (Ec)) 325 mg DAILY PO Last administered on 06/18/18at 09:02; Admin Dose 325 MG; Start 06/13/18 at 10:30; Stop 08/12/18 at 10:29 Glimepiride (Amaryl) 4 mg AC BREAKFAST DINNER PO Last administered on 06/18/18 09:02; Admin Dose 4 MG; Start 06/13/18 at 17:30 Levalbuterol (Xopenex Neb) 1.25 mg Q6H RESP THERAPY PRN HHN sob/wheezing Last administered on 06/14/18 21:38; Admin Dose 1.25 MG; Start 06/14/18 at 09:00 Guaifenesin/ Dextromethorphan (Mucinex Dm) 1 tab BID PO Last administered on 06/18/18 09:01; Admin Dose 1 TAB; Start 06/14/18 at 09:30 Piperacillin Sod/ Tazobactam Sod 100 ml @ 200 mls/hr Q6 IVPB Last administered on 06/18/18 12:05; Admin Dose 200 MLS/HR; Start 06/15/18 at 13:00 Metformin HCl (Glucophage) 1,000 mg BID WITH MEALS PO Last administered on 06/18/18 07:48; Admin Dose 1,000 MG; Start 06/16/18 at 18:00 Ascorbic Acid (Vitamin C) 500 mg DAILY PO Last administered on 06/18/18 09:02; Admin Dose 500 MG; Start 06/17/18 at 09:00; Stop 08/16/18 at 08:59 Voriconazole (Vfend) 200 mg BID PO Last administered on 06/18/18 09:01; Admin Dose 200 MG; Start 06/17/18 at 12:30 Insulin Human NPH (Humulin N) 12 unit DAILY@20 SC Last administered on 06/17/18 21:07; Admin Dose 12 UNIT; Start 06/17/18 at 20:00 Guaifenesin/ Codeine Phosphate (Robitussin Ac Liquid Cup) 5 ml Q4H PRN PO cough; Start 06/18/18 at 12:00 MINNIE VICTORIA NP Jun 18, 2018 14:50
[2018-06-18] MEDS: ERTAPENEM SODIUM 1 GM in SOD CHLORIDE 0.9% 100 ML IVPB SCH (16:54)
[2018-06-18] MEDS: DOXYCYCLINE 100 MG TAB PO SCH ×2 (16:54→20:25)
[2018-06-18] MEDS: ZYVOX 600 MG TAB PO SCH (20:25)
[2018-06-18] MEDS: NPH, HUMAN INSULIN ISOPHANE 3ML VIAL SC SCH (20:42)
[2018-06-18] MEDS ORDERED: ZOLPIDEM 5 MG TAB PO ONE (22:30)
[2018-06-19] VITALS (10 sets, daily range): BP systolic 99–124; BP diastolic 66–77; PULSE 86–121; RESP 16–20
[2018-06-19] MEDS: ACCU-CHEK XX SCH (02:00)
[2018-06-19] MEDS: PANTOPRAZOLE (EC) 40 MG TAB PO SCH (06:23)
[2018-06-19] MEDS: GLIMEPIRIDE 2 MG TAB PO SCH ×2 (07:52→18:03)
[2018-06-19] MEDS: metFORMIN 500 MG TAB PO SCH ×2 (08:24→18:03)
[2018-06-19] MEDS: INSULIN ASPART [NOVOLOG] 3 ML PEN SC SCH ×4 (08:28→20:29)
[2018-06-19] MEDS: FERROUS SULFATE (EC) 325 MG TAB PO SCH (09:01)
[2018-06-19] MEDS: ASCORBIC ACID 500 MG TAB PO SCH (09:01)
[2018-06-19] MEDS: ZYVOX 600 MG TAB PO SCH ×2 (09:01→20:30)
[2018-06-19] MEDS: VORICONAZOLE 200 MG TAB PO SCH ×2 (09:01→20:30)
[2018-06-19] MEDS: GUAIFENESIN/DM (SR) TAB PO SCH ×2 (09:01→20:30)
[2018-06-19] MEDS: DOXYCYCLINE 100 MG TAB PO SCH ×2 (09:01→20:30)
--- NOTE | 2018-06-19 09:29 | PN ---
Date/Time of Note Date/Time of Note DATE: 06/19/18 TIME: 09:29 Assessment/Plan VTE Prophylaxis Risk score (from Ns)>0 risk: 1 SCD applied (from [facility] [place] SCD contraindicated: low risk/ambulating Pharmacological prophylaxis: NA/contraindicated Pharm contraindication: low risk/ambulating Lines/Catheters IV C[facility]ter Type (from [facility] [place] Urinary Cath still in place: No Assessment/Plan Assessment/Plan 1. Sepsis with MRSA bacteremia - WBC improving and remains afebrile - secondary to PNA and bacteremia - ID on board and appreciate recommendations. Continue on current antibiotics 2. Tachycardia - Asymptomatic - Secondary to above sepsis with bacteremia and pneumonia 3. Poorly controlled diabetes - Endocrinology on board and appreciate recommendations. Continue on current insulin and glimepiride. Pt more compliant with diet 4. Extensive bilateral multilobar pneumonia - Pulm on board and continue current treatment. Awaiting AFB and cocci studies - CT concerning for developing cavitation/necrotizing pna - Continue current antibiotics per ID recommendations 5. Homelessness - SW on board 6. History of meth abuse - Patient states last use was 2 weeks ago. Counseled on cessation. 7. Tobacco use - Cessation advised. 8. Iron Deficient anemia. - Continue oral iron. - H&H stable. 9. Mild asthma. - Currently stable. At this time, this is controlled with as needed SELMA 10. Disposition - Continue current treatment pending cocci and AFB results Result Diagram: 06/19/1852306/19/18 0524 Results 24hrs Laboratory Tests Test 06/18/18 12:05 06/18/18 16:51 06/18/18 20:22 06/19/18 01:14 Bedside Glucose 281 H 259 H 279 H 136 Test 06/19/18 05:24 06/19/18 08:23 White Blood Count 13.6 #H Red Blood Count 4.16 L Hemoglobin 11.6 L Hematocrit 37.0 Mean Corpuscular 88.9 Volume Mean Corpuscular 27.9 L Hemoglobin Mean Corpuscular 31.4 L Hemoglobin Concent Red Cell Distribution 16.7 H Width Platelet Count 810 H Mean Platelet Volume 9.4 Immature Granulocytes 1.900 H % Neutrophils % 72.1 Lymphocytes % 20.0 Monocytes % 3.9 Eosinophils % 1.6 Basophils % 0.5 Nucleated Red Blood 0.0 Cells % Immature Granulocytes 0.260 H # Neutrophils # 9.8 H Lymphocytes # 2.7 Monocytes # 0.5 Eosinophils # 0.2 Basophils # 0.1 Nucleated Red Blood 0.0 Cells # Sodium Level 138 Potassium Level 4.5 Chloride Level 99 Carbon Dioxide Level 29 Anion Gap 10 Blood Urea Nitrogen 10 Creatinine 0.45 Est Glomerular > 60 Filtrat Rate mL/min Glucose Level 151 Calcium Level 9.6 Phosphorus Level 4.7 Magnesium Level 1.7 Bedside Glucose 165 Subjective 24 Hr Interval Summary Free Text/Dictation Patient states shes feeling better but still with cough and productive sputum. No acute overnight events Exam/Review of Systems Exam Vitals Vital Signs Date Temp Pulse Resp B/P (MAP) Pulse Ox O2 O2 Flow FiO2 Time Delivery Rate 06/19/18 97.7 104 16 102/68 100 Nasal 07:39 (79) Cannula 06/18/18 2.0 08:00 Intake and Output 06/18/18 06/18/18 06/19/18 1515:00 23:00 07:00 IntakeIntake Total 350 ml 1350 ml 250 ml BalanceBalance 350 ml 1350 ml 250 ml Exam General: Patient is laying in bed and answers questions appropriately Neck: Supple, nontender, midline Respiratory: diminished bilaterally. no wheezing appreciated Cardiovascular: regular rhythm, tachycardia, no obvious murmurs Gastrointestinal: non-tender to palpation, bowel sounds heard. Neurological: Moves all extremities spontaneously Skin: No new skin lesions Results Results 24hrs Laboratory Tests Test 06/18/18 12:05 06/18/18 16:51 06/18/18 20:22 06/19/18 01:14 Bedside Glucose 281 H 259 H 279 H 136 Test 06/19/18 05:24 06/19/18 08:23 White Blood Count 13.6 #H Red Blood Count 4.16 L Hemoglobin 11.6 L Hematocrit 37.0 Mean Corpuscular 88.9 Volume Mean Corpuscular 27.9 L Hemoglobin Mean Corpuscular 31.4 L Hemoglobin Concent Red Cell Distribution 16.7 H Width Platelet Count 810 H Mean Platelet Volume 9.4 Immature Granulocytes 1.900 H % Neutrophils % 72.1 Lymphocytes % 20.0 Monocytes % 3.9 Eosinophils % 1.6 Basophils % 0.5 Nucleated Red Blood 0.0 Cells % Immature Granulocytes 0.260 H # Neutrophils # 9.8 H Lymphocytes # 2.7 Monocytes # 0.5 Eosinophils # 0.2 Basophils # 0.1 Nucleated Red Blood 0.0 Cells # Sodium Level 138 Potassium Level 4.5 Chloride Level 99 Carbon Dioxide Level 29 Anion Gap 10 Blood Urea Nitrogen 10 Creatinine 0.45 Est Glomerular > 60 Filtrat Rate mL/min Glucose Level 151 Calcium Level 9.6 Phosphorus Level 4.7 Magnesium Level 1.7 Bedside Glucose 165 Medications Medication Current Medications Ondansetron HCl (Zofran Inj) 4 mg Q6H PRN IV NAUSEA AND/OR VOMITING; Start 06/09/18 at 00:30 Ipratropium [place] (Atrovent 0.02% (Neb)) 0.5 mg Q2H RESP THERAPY PRN NEB SHORTNESS OF BREATH Last administered on 06/14/18at 21:38; Admin Dose 0.5 MG; Start 06/09/18 at 00:30 Acetaminophen (Tylenol Liquid) 650 mg Q6H PRN PO PAIN LEVEL 1-3 OR FEVER Last administered on 06/18/18at 05:57; Admin Dose 650 MG; Start 06/09/18 at 00:30 Docusate Sodium (Colace) 100 mg Q12H PRN PO CONSTIPATION; Start 06/09/18 at 00:30 Bisacodyl (Dulcolax) 5 mg DAILY PRN PO CONSTIPATION; Start 06/09/18 at 00:30 Pantoprazole (Protonix Tab) 40 mg DAILY@06 PO Last administered on 06/19/18at 06:23; Admin Dose 40 MG; Start 06/09/18 at 06:00 Diagnostic Test (Pha) (Accu-Chek) 1 ea 02 XX Last administered on 06/17/18at 02:00; Admin Dose 1 EA; Start 06/10/18 at 02:00 Insulin Aspart (Novolog Insulin Pen) NOVOLOG *MILD* ALGORITHM WITH MEALS BEDTIME SC Last administered on 06/19/18at 08:28; Admin Dose 1 UNIT; Start 06/09/18 at 18:00 Miscellaneous Information 1 ea NOTE XX ; Start 06/09/18 at 14:30 Glucose (Glutose) 15 gm Q15M PRN PO DECREASED GLUCOSE; Start 06/09/18 at 14:30 Glucose (Glutose) 22.5 gm Q15M PRN PO DECREASED GLUCOSE; Start 06/09/18 at 14:30 Dextrose (D50w Syringe) 25 ml Q15M PRN IV DECREASED GLUCOSE Last administered on 06/15/18at 20:53; Admin Dose 25 ML; Start 06/09/18 at 14:30 Dextrose (D50w Syringe) 50 ml Q15M PRN IV DECREASED GLUCOSE; Start 06/09/18 at 14:30 Glucagon (Glucagen) 1 mg Q15M PRN IM DECREASED GLUCOSE; Start 06/09/18 at 14:30 Glucose (Glutose) 15 gm Q15M PRN BUCCAL DECREASED GLUCOSE; Start 06/09/18 at 14:30 Ferrous Sulfate (Ferrous Sulfate (Ec)) 325 mg DAILY PO Last administered on 06/19/18 09:01; Admin Dose 325 MG; Start 06/13/18 at 10:30; Stop 08/12/18 at 10:29 Glimepiride (Amaryl) 4 mg AC BREAKFAST DINNER PO Last administered on 06/19/18 07:52; Admin Dose 4 MG; Start 06/13/18 at 17:30 Levalbuterol (Xopenex Neb) 1.25 mg Q6H RESP THERAPY PRN HHN sob/wheezing Last administered on 06/14/18at 21:38; Admin Dose 1.25 MG; Start 06/14/18 at 09:00 Guaifenesin/ Dextromethorphan (Mucinex Dm) 1 tab BID PO Last administered on 06/19/18 09:01; Admin Dose 1 TAB; Start 06/14/18 at 09:30 Metformin HCl (Glucophage) 1,000 mg BID WITH MEALS PO Last administered on 06/19 08:24; Admin Dose 1,000 MG; Start 06/16/18 at 18:00 Ascorbic Acid (Vitamin C) 500 mg DAILY PO Last administered on 06/19/18 09:01; Admin Dose 500 MG; Start 06/17/18 at 09:00; Stop 08/16/18 at 08:59 Voriconazole (Vfend) 200 mg BID PO Last administered on 06/19/18 09:01; Admin Dose 200 MG; Start 06/17/18 at 12:30 Insulin Human NPH (Humulin N) 12 unit DAILY@20 SC Last administered on 06/18/18 at 20:42; Admin Dose 12 UNIT; Start 06/17/18 at 20:00 Guaifenesin/ Codeine Phosphate (Robitussin Ac Liquid Cup) 5 ml Q4H PRN PO cough Last administered on 06/18/18 20:25; Admin Dose 5 ML; Start 06/18/18 at 12:00 Linezolid (Zyvox) 600 mg BID PO Last administered on 06/19/18 09:01; Admin Dose 600 MG; Start 06/18/18 at 21:00 Ertapenem 1 gm/ Sodium Chloride 100 ml @ 200 mls/hr Q24H IVPB Last admi nistered on 06/18/18at 16:54; Admin Dose 200 MLS/HR; Start 06/18/18 at 15:30 Doxycycline Hyclate (Vibramycin) 100 mg BID PO Last administered on 06/19/18 09:01; Admin Dose 100 MG; Start 06/18/18 at 15:30 DAVE HAMMONDS MD Jun 19, 2018 09:29
--- NOTE | 2018-06-19 12:51 | CONS ---
Consult Date/Type/Reason Admit Date/Time Jun 08, 2018 at 23:53 Initial Consult Date Type of Consult Pulmonary Requesting Provider: ARIS ANDERSEN Date/Time of Note DATE: 06/19/18 TIME: 12:49 Subjective Slowly improving. Still congested with productive cough Objective Vital Signs Date Temp Pulse Resp B/P (MAP) Pulse Ox O2 O2 Flow FiO2 Time Delivery Rate 06/19/18 98.0 86 18 124/68 98 Room Air 11:05 (86) 06/18/18 2.0 08:00 Intake and Output 06/18/18 06/18/18 06/19/18 1515:00 23:00 07:00 IntakeIntake Total 350 ml 1350 ml 250 ml BalanceBalance 350 ml 1350 ml 250 ml Exam GENERAL: Well-nourished well-developed lady comfortable at rest VITAL SIGNS: per chart NECK: Supple. No JVD or lymphadenopathy. CARDIAC EXAM: S1, S2. No added sounds or murmurs. CHEST: Diminished air entry bilaterally ABDOMEN: Soft, nontender. No guarding or rebound. EXTREMITIES: No cyanosis, clubbing or edema. NEUROLOGIC: Generalized weakness. No focal deficits. Vent Setting Fraction of Inspired Oxygen pe: 21 Results/Medications Result Diagram: 06/19/1852306/19/18523 Results 24 hrs Laboratory Tests Test 06/18/18 16:51 06/18/18 20:22 06/19/18 01:14 06/19/18 05:24 Bedside Glucose 259 H 279 H 136 White Blood Count 13.6 #H Red Blood Count 4.16 L Hemoglobin 11.6 L Hematocrit 37.0 Mean Corpuscular 88.9 Volume Mean Corpuscular 27.9 L Hemoglobin Mean Corpuscular 31.4 L Hemoglobin Concent Red Cell Distribution 16.7 H Width Platelet Count 810 H Mean Platelet Volume 9.4 Immature Granulocytes 1.900 H % Neutrophils % 72.1 Lymphocytes % 20.0 Monocytes % 3.9 Eosinophils % 1.6 Basophils % 0.5 Nucleated Red Blood 0.0 Cells % Immature Granulocytes 0.260 H # Neutrophils # 9.8 H Lymphocytes # 2.7 Monocytes # 0.5 Eosinophils # 0.2 Basophils # 0.1 Nucleated Red Blood 0.0 Cells # Sodium Level 138 Potassium Level 4.5 Chloride Level 99 Carbon Dioxide Level 29 Anion Gap 10 Blood Urea Nitrogen 10 Creatinine 0.45 Est Glomerular Filtrat > 60 Rate mL/min Glucose Level 151 Calcium Level 9.6 Phosphorus Level 4.7 Magnesium Level 1.7 Test 06/19/18 08:23 06/19/18 11:50 Bedside Glucose 165 236 H Medications Current Medications Ondansetron HCl (Zofran Inj) 4 mg Q6H PRN IV NAUSEA AND/OR VOMITING; Start 06/09/18 at 00:30 Ipratropium [place] (Atrovent 0.02% (Neb)) 0.5 mg Q2H RESP THERAPY PRN NEB SHORTNESS OF BREATH Last administered on 06/14/18at 21:38; Admin Dose 0.5 MG; Start 06/09/18 at 00:30 Acetaminophen (Tylenol Liquid) 650 mg Q6H PRN PO PAIN LEVEL 1-3 OR FEVER Last administered on 06/18/18at 05:57; Admin Dose 650 MG; Start 06/09/18 at 00:30 Docusate Sodium (Colace) 100 mg Q12H PRN PO CONSTIPATION; Start 06/09/18 at 00:30 Bisacodyl (Dulcolax) 5 mg DAILY PRN PO CONSTIPATION; Start 06/09/18 at 00:30 Pantoprazole (Protonix Tab) 40 mg DAILY@06 PO Last administered on 06/19/18at 06:23; Admin Dose 40 MG; Start 06/09/18 at 06:00 Diagnostic Test (Pha) (Accu-Chek) 1 ea 02 XX Last administered on 06/17/18at 02:00; Admin Dose 1 EA; Start 06/10/18 at 02:00 Insulin Aspart (Novolog Insulin Pen) NOVOLOG *MILD* ALGORITHM WITH MEALS BEDTIME SC Last administered on 06/19/18at 11:55; Admin Dose 3 UNIT; Start 06/09/18 at 18:00 Miscellaneous Information 1 ea NOTE XX ; Start 06/09/18 at 14:30 Glucose (Glutose) 15 gm Q15M PRN PO DECREASED GLUCOSE; Start 06/09/18 at 14:30 Glucose (Glutose) 22.5 gm Q15M PRN PO DECREASED GLUCOSE; Start 06/09/18 at 14:30 Dextrose (D50w Syringe) 25 ml Q15M PRN IV DECREASED GLUCOSE Last administered on 06/15/18at 20:53; Admin Dose 25 ML; Start 06/09/18 at 14:30 Dextrose (D50w Syringe) 50 ml Q15M PRN IV DECREASED GLUCOSE; Start 06/09/18 at 14:30 Glucagon (Glucagen) 1 mg Q15M PRN IM DECREASED GLUCOSE; Start 06/09/18 at 14:30 Glucose (Glutose) 15 gm Q15M PRN BUCCAL DECREASED GLUCOSE; Start 06/09/18 at 14:30 Ferrous Sulfate (Ferrous Sulfate (Ec)) 325 mg DAILY PO Last administered on 06/19/18 09:01; Admin Dose 325 MG; Start 06/13/18 at 10:30; Stop 08/12/18 at 10:29 Glimepiride (Amaryl) 4 mg AC BREAKFAST DINNER PO Last administered on 06/19/18 07:52; Admin Dose 4 MG; Start 06/13/18 at 17:30 Levalbuterol (Xopenex Neb) 1.25 mg Q6H RESP THERAPY PRN HHN sob/wheezing Last administered on 06/14/18 21:38; Admin Dose 1.25 MG; Start 06/14/18 at 09:00 Guaifenesin/ Dextromethorphan (Mucinex Dm) 1 tab BID PO Last administered on 09:01; Admin Dose 1 TAB; Start 06/14/18 at 09:30 Metformin HCl (Glucophage) 1,000 mg BID WITH MEALS PO Last administered on 06/19/18 08:24; Admin Dose 1,000 MG; Start 06/16/18 at 18:00 Ascorbic Acid (Vitamin C) 500 mg DAILY PO Last administered on 06/19/18 09:01; Admin Dose 500 MG; Start 06/17/18 at 09:00; Stop 08/16/18 at 08:59 Voriconazole (Vfend) 200 mg BID PO Last administered on 06/19/18 09:01; Admin Dose 200 MG; Start 06/17/18 at 12:30 Insulin Human NPH (Humulin N) 12 unit DAILY@20 SC Last administered on 06/18/18 20:42; Admin Dose 12 UNIT; Start 06/17/18 at 20:00 Guaifenesin/ Codeine Phosphate (Robitussin Ac Liquid Cup) 5 ml Q4H PRN PO cough Last administered on 3/31/19at 20:25; Admin Dose 5 ML; Start 06/18/18 at 12:00 Linezolid (Zyvox) 600 mg BID PO Last administered on 06/19/18 09:01; Admin Dose 600 MG; Start 06/18/18 at 21:00 Ertapenem 1 gm/ Sodium Chloride 100 ml @ 200 mls/hr Q24H IVPB Last administered on 06/18/18at 16:54; Admin Dose 200 MLS/HR; Start 06/18/18 at 15:30 Doxycycline Hyclate (Vibramycin) 100 mg BID PO Last administered on 06/19/18 09:01; Admin Dose 100 MG; Start 06/18/18 at 15:30 Assessment/Plan Hospital Course (Demo Recall) Assessment 1. Homeless lady with bilateral infiltrates cavitating some areas concerning for possible Mycobacterium tuberculosis. Negative AFB x2 QuantiFERON gold pending Plan 1. Continue current antibiotics with improved leukocytosis 2. Await QuantiFERON gold and coccidiomycosis serology 3. Low threshold for bronchoscopy if no improvement in infiltrates 4. Repeat chest x-ray in ALICIA Harrington MD, [facility] Jun 19, 2018 12:51
--- NOTE | 2018-06-19 14:10 | CONS ---
Assessment/Plan Assessment/Plan Problems: (1) Diabetes mellitus type 2 in nonobese Status: Chronic Comment: The patient sugar control does better on the patient is not snacking or taking extra food stuff such as candy. Continue the current protocol which would be usable as an outpatient (2) MRSA bacteremia Status: Acute Comment: Patient has been placed back on doxycycline by infectious disease who is actually canceled at roughly 10 days ago (3) Pneumonia Status: Acute Comment: Clinically improving follow-up as per pulmonary Qualifiers: Pneumonia type: due to unspecified organism Laterality: left Lung location: upper lobe of lung Qualified Codes: J18.1 - Lobar pneumonia, uns pecified organism Consultation Date/Type/Reason Admit Date/Time Jun 08, 2018 at 23:53 Initial Consult Date June 09, 2018 Type of Consult Endocrinology Reason for Consultation Diabetes mellitus type 2 with inadequate control; MRSA bacteremia; homeless status Requesting Provider: ARIS ANDERSEN Date/Time of Note DATE: 06/19/18 TIME: 14:08 24 HR Interval Summary Constitutional: no complaints Detailed Summary Endocrine: no complaints Exam/Review of Systems Exam Vitals Vital Signs Date Temp Pulse Resp B/P (MAP) Pulse Ox O2 O2 Flow FiO2 Time Delivery Rate 06/19/18 98.0 86 18 124/68 98 Room Air 11:05 (86) 06/18/18 2.0 08:00 Intake and Output 06/18/18 06/18/18 06/19/18 1515:00 23:00 07:00 IntakeIntake Total 350 ml 1350 ml 250 ml BalanceBalance 350 ml 1350 ml 250 ml Exam Patient clinically appears to be doing better Constitutional: alert Neck: supple, non-tender Cardiovascular: regular rate and rhythm, nl pulses Gastrointestinal: soft, nl liver, spleen, non-tender Results Result Diagram: 06/19/1852306/19/18523 Results 24hrs Laboratory Tests Test 06/18/18 16:51 06/18/18 20:22 06/19/18 01:14 06/19/18 05:24 Bedside Glucose 259 H 279 H 136 White Blood Count 13.6 #H Red Blood Count 4.16 L Hemoglobin 11.6 L Hematocrit 37.0 Mean Corpuscular 88.9 Volume Mean Corpuscular 27.9 L Hemoglobin Mean Corpuscular 31.4 L Hemoglobin Concent Red Cell Distribution 16.7 H Width Platelet Count 810 H Mean Platelet Volume 9.4 Immature Granulocytes 1.900 H % Neutrophils % 72.1 Lymphocytes % 20.0 Monocytes % 3.9 Eosinophils % 1.6 Basophils % 0.5 Nucleated Red Blood 0.0 Cells % Immature Granulocytes 0.260 H # Neutrophils # 9.8 H Lymphocytes # 2.7 Monocytes # 0.5 Eosinophils # 0.2 Basophils # 0.1 Nucleated Red Blood 0.0 Cells # Sodium Level 138 Potassium Level 4.5 Chloride Level 99 Carbon Dioxide Level 29 Anion Gap 10 Blood Urea Nitrogen 10 Creatinine 0.45 Est Glomerular Filtrat > 60 Rate mL/min Glucose Level 151 Calcium Level 9.6 Phosphorus Level 4.7 Magnesium Level 1.7 Test 06/19/18 08:23 06/19/18 11:50 Bedside Glucose 165 236 H Medications Medication Current Medications Ondansetron HCl (Zofran Inj) 4 mg Q6H PRN IV NAUSEA AND/OR VOMITING; Start 06/09/18 at 00:30 Ipratropium [place] (Atrovent 0.02% (Neb)) 0.5 mg Q2H RESP THERAPY PRN NEB SHORTNESS OF BREATH Last administered on 06/14/18at 21:38; Admin Dose 0.5 MG; Start 06/09/18 at 00:30 Acetaminophen (Tylenol Liquid) 650 mg Q6H PRN PO PAIN LEVEL 1-3 OR FEVER Last administered on 06/18/18at 05:57; Admin Dose 650 MG; Start 06/09/18 at 00:30 Docusate Sodium (Colace) 100 mg Q12H PRN PO CONSTIPATION; Start 06/09/18 at 00:30 Bisacodyl (Dulcolax) 5 mg DAILY PRN PO CONSTIPATION; Start 06/09/18 at 00:30 Pantoprazole (Protonix Tab) 40 mg DAILY@06 PO Last administered on 06/19/18 06:23; Admin Dose 40 MG; Start 06/09/18 at 06:00 Diagnostic Test (Pha) (Accu-Chek) 1 ea 02 XX Last administered on 06/17/18 02:00; Admin Dose 1 EA; Start 06/10/18 at 02:00 Insulin Aspart (Novolog Insulin Pen) NOVOLOG *MILD* ALGORITHM WITH MEALS BEDTIME SC Last administered on 06/19/18at 11:55; Admin Dose 3 UNIT; Start 06/09/18 at 18:00 Miscellaneous Information 1 ea NOTE XX ; Start 06/09/18 at 14:30 Glucose (Glutose) 15 gm Q15M PRN PO DECREASED GLUCOSE; Start 06/09/18 at 14:30 Glucose (Glutose) 22.5 gm Q15M PRN PO DECREASED GLUCOSE; Start 06/09/18 at 14:30 Dextrose (D50w Syringe) 25 ml Q15M PRN IV DECREASED GLUCOSE Last administered on 06/15/18at 20:53; Admin Dose 25 ML; Start 06/09/18 at 14:30 Dextrose (D50w Syringe) 50 ml Q15M PRN IV DECREASED GLUCOSE; Start 06/09/18 at 14:30 Glucagon (Glucagen) 1 mg Q15M PRN IM DECREASED GLUCOSE; Start 06/09/18 at 14:30 Glucose (Glutose) 15 gm Q15M PRN BUCCAL DECREASED GLUCOSE; Start 06/09/18 at 14 :30 Ferrous Sulfate (Ferrous Sulfate (Ec)) 325 mg DAILY PO Last administered on 06/19/18at 09:01; Admin Dose 325 MG; Start 06/13/18 at 10:30; Stop 08/12/18 at 10:29 Glimepiride (Amaryl) 4 mg AC BREAKFAST DINNER PO Last administered on 06/19/18at 07:52; Admin Dose 4 MG; Start 06/13/18 at 17:30 Levalbuterol (Xopenex Neb) 1.25 mg Q6H RESP THERAPY PRN HHN sob/wheezing Last administered on 06/14/18at 21:38; Admin Dose 1.25 MG; Start 06/14/18 at 09:00 Guaifenesin/ Dextromethorphan (Mucinex Dm) 1 tab BID PO Last administered on 06/19/18 09:01; Admin Dose 1 TAB; Start 06/14/18 at 09:30 Metformin HCl (Glucophage) 1,000 mg BID WITH MEALS PO Last administered on 06/19/18 08:24; Admin Dose 1,000 MG; Start 06/16/18 at 18:00 Ascorbic Acid (Vitamin C) 500 mg DAILY PO Last administered on 06/19/18 09:01; Admin Dose 500 MG; Start 06/17/18 at 09:00; Stop 08/16/18 at 08:59 Voriconazole (Vfend) 200 mg BID PO Last administered on 06/19/18 09:01; Admin Dose 200 MG; Start 06/17/18 at 12:30 Insulin Human NPH (Humulin N) 12 unit DAILY@20 SC Last administered on 06/18/18 20:42; Admin Dose 12 UNIT; Start 06/17/18 at 20:00 Guaifenesin/ Codeine Phosphate (Robitussin Ac Liquid Cup) 5 ml Q4H PRN PO cough Last administered on 06/18/18 20:25; Admin Dose 5 ML; Start 06/18/18 at 12:00 Linezolid (Zyvox) 600 mg BID PO Last administered on 06/19/18 09:01; Admin Dose 600 MG; Start 06/18/18 at 21:00 Ertapenem 1 gm/ Sodium Chloride 100 ml @ 200 mls/hr Q24H IVPB Last administered on 06/18/18 16:54; Admin Dose 200 MLS/HR; Start 06/18/18 at 15:30 Doxycycline Hyclate (Vibramycin) 100 mg BID PO Last administered on 06/19/18 09:01; Admin Dose 100 MG; Start 06/18/18 at 15:30 STEVE AGGARWAL MD Jun 19, 2018 14:10
--- NOTE | 2018-06-19 14:33 | CONS ---
Assessment/Plan Assessment/Plan Hospital Course (Demo Recall) Patient is alert feels good denies pain no fevers no hemoptysis she is on and off tachycardic. WBC today 13.6 platelets a 10 neutrophils 72.1 BUN 10 creatinine 0.45 Microbiology: Blood culture on June 08 grew MRSA, repeat blood cultures negative, sputum culture on June 16 grew [place] albicans and MRSA. 2 sets of AFB negative. Serology for HIV negative Antimicrobials: Zyvox Invanz doxycycline, voriconazole Physical examination: Well-developed middle-aged woman who is alert in no di stress. Head atraumatic normocephalic sclera nonicteric. Neck is supple chest rise symmetrical breath sounds diminished bases. Heart S1-S2. Abdomen soft bowel sounds present. Extremities without cyanosis. Assessment: 1. Resolving sepsis 2. MRSA bacteremia on admission 3. Necrotizing MRSA pneumonia with areas of cavitation per CT 4. Homelessness 5. Poorly controlled diabetes 6. History of recent meth amphetamine abuse Plan: Patient remained stable, repeat blood cultures negative, no obvious vegetations per 2D echo, awaiting for third AFB smear, awaiting for cocci, continue antibiotics Consultation Date/Type/Reason Admit Date/Time Jun 08, 2018 at 23:53 Initial Consult Date Type of Consult id Requesting Provider: ARIS ANDERSEN Date/Time of Note DATE: 06/19/18 TIME: 14:33 Exam/Review of Systems Exam Vitals Vital Signs Date Temp Pulse Resp B/P (MAP) Pulse Ox O2 O2 Flow FiO2 Time Delivery Rate 06/19/18 105 12:00 06/19/18 98.0 18 124/68 98 Room Air 11:05 (86) 06/18/18 2.0 08:00 Intake and Output 06/18/18 06/18/18 06/19/18 1515:00 23:00 07:00 IntakeIntake Total 350 ml 1350 ml 250 ml BalanceBalance 350 ml 1350 ml 250 ml Results Result Diagram: 06/19/1852306/19/18523 Results 24hrs Laboratory Tests Test 06/18/18 16:51 06/18/18 20:22 06/19/18 01:14 06/19/18 05:24 Bedside Glucose 259 H 279 H 136 White Blood Count 13.6 #H Red Blood Count 4.16 L Hemoglobin 11.6 L Hematocrit 37.0 Mean Corpuscular 88.9 Volume Mean Corpuscular 27.9 L Hemoglobin Mean Corpuscular 31.4 L Hemoglobin Concent Red Cell Distribution 16.7 H Width Platelet Count 810 H Mean Platelet Volume 9.4 Immature Granulocytes 1.900 H % Neutrophils % 72.1 Lymphocytes % 20.0 Monocytes % 3.9 Eosinophils % 1.6 Basophils % 0.5 Nucleated Red Blood 0.0 Cells % Immature Granulocytes 0.260 H # Neutrophils # 9.8 H Lymphocytes # 2.7 Monocytes # 0.5 Eosinophils # 0.2 Basophils # 0.1 Nucleated Red Blood 0.0 Cells # Sodium Level 138 Potassium Level 4.5 Chloride Level 99 Carbon Dioxide Level 29 Anion Gap 10 Blood Urea Nitrogen 10 Creatinine 0.45 Est Glomerular Filtrat > 60 Rate mL/min Glucose Level 151 Calcium Level 9.6 Phosphorus Level 4.7 Magnesium Level 1.7 Test 06/19/18 08:23 06/19/18 11:50 Bedside Glucose 165 236 H Medications Medication Current Medications Ondansetron HCl (Zofran Inj) 4 mg Q6H PRN IV NAUSEA AND/OR VOMITING; Start 06/09/18 at 00:30 Ipratropium [place] (Atrovent 0.02% (Neb)) 0.5 mg Q2H RESP THERAPY PRN NEB SHORTNESS OF BREATH Last administered on 06/14/18at 21:38; Admin Dose 0.5 MG; Start 06/09/18 at 00:30 Acetaminophen (Tylenol Liquid) 650 mg Q6H PRN PO PAIN LEVEL 1-3 OR FEVER Last administered on 06/18/18at 05:57; Admin Dose 650 MG; Start 06/09/18 at 00:30 Docusate Sodium (Colace) 100 mg Q12H PRN PO CONSTIPATION; Start 06/09/18 at 00:30 Bisacodyl (Dulcolax) 5 mg DAILY PRN PO CONSTIPATION; Start 06/09/18 at 00:30 Pantoprazole (Protonix Tab) 40 mg DAILY@06 PO Last administered on 06/19/18at 06:23; Admin Dose 40 MG; Start 06/09/18 at 06:00 Diagnostic Test (Pha) (Accu-Chek) 1 ea 02 XX Last administered on 06/17/18at 02:00; Admin Dose 1 EA; Start 06/10/18 at 02:00 Insulin Aspart (Novolog Insulin Pen) NOVOLOG *MILD* ALGORITHM WITH MEALS BEDTIME SC Last administered on 06/19/18at 11:55; Admin Dose 3 UNIT; Start 06/09/18 at 18:00 Miscellaneous Information 1 ea NOTE XX ; Start 06/09/18 at 14:30 Glucose (Glutose) 15 gm Q15M PRN PO DECREASED GLUCOSE; Start 06/09/18 at 14:30 Glucose (Glutose) 22.5 gm Q15M PRN PO DECREASED GLUCOSE; Start 06/09/18 at 14:30 Dextrose (D50w Syringe) 25 ml Q15M PRN IV DECREASED GLUCOSE Last administered on 06/15/18at 20:53; Admin Dose 25 ML; Start 06/09/18 at 14:30 Dextrose (D50w Syringe) 50 ml Q15M PRN IV DECREASED GLUCOSE; Start 06/09/18 at 14:30 Glucagon (Glucagen) 1 mg Q15M PRN IM DECREASED GLUCOSE; Start 06/09/18 at 14:30 Glucose (Glutose) 15 gm Q15M PRN BUCCAL DECREASED GLUCOSE; Start 06/09/18 at 14:30 Ferrous Sulfate (Ferrous Sulfate (Ec)) 325 mg DAILY PO Last administered on 06/19/18at 09:01; Admin Dose 325 MG; Start 06/13/18 at 10:30; Stop 08/12/18 at 10:29 Glimepiride (Amaryl) 4 mg AC BREAKFAST DINNER PO Last administered on 06/19/18at 07:52; Admin Dose 4 MG; Start 06/13/18 at 17:30 Levalbuterol (Xopenex Neb) 1.25 mg Q6H RESP THERAPY PRN HHN sob/wheezing Last administered on 06/14/18at 21:38; Admin Dose 1.25 MG; Start 06/14/18 at 09:00 Guaifenesin/ Dextromethorphan (Mucinex Dm) 1 tab BID PO Last administered on 06/19/18at 09:01; Admin Dose 1 TAB; Start 06/14/18 at 09:30 Metformin HCl (Glucophage) 1,000 mg BID WITH MEALS PO Last administered on 06/19/18at 08:24; Admin Dose 1,000 MG; Start 06/16/18 at 18:00 Ascorbic Acid (Vitamin C) 500 mg DAILY PO Last administered on 06/19/18 09:01; Admin Dose 500 MG; Start 06/17/18 at 09:00; Stop 08/16/18 at 08:59 Voriconazole (Vfend) 200 mg BID PO Last administered on 06/19/18 09:01; Admin Dose 200 MG; Start 06/17/18 at 12:30 Insulin Human NPH (Humulin N) 12 unit DAILY@20 SC Last administered on 06/18/18 20:42; Admin Dose 12 UNIT; Start 06/17/18 at 20:00 Guaifenesin/ Codeine Phosphate (Robitussin Ac Liquid Cup) 5 ml Q4H PRN PO cough Last administered on 06/18/18 20:25; Admin Dose 5 ML; Start 06/18/18 at 12:00 Linezolid (Zyvox) 600 mg BID PO Last administered on 06/19/18 09:01; Admin Dose 600 MG; Start 06/18/18 at 21:00 Ertapenem 1 gm/ Sodium Chloride 100 ml @ 200 mls/hr Q24H IVPB Last administered on 06/18/18 16:54; Admin Dose 200 MLS/HR; Start 06/18/18 at 15:30 Doxycycline Hyclate (Vibramycin) 100 mg BID PO Last administered on 06/19/18 09:01; Admin Dose 100 MG; Start 06/18/18 at 15:30 JOSE GOVEA NP Jun 19, 2018 14:33
[2018-06-19] MEDS: ERTAPENEM SODIUM 1 GM in SOD CHLORIDE 0.9% 100 ML IVPB SCH (15:33)
[2018-06-19] MEDS: ZOLPIDEM 5 MG TAB PO PRN (20:34)
[2018-06-19] MEDS: NPH, HUMAN INSULIN ISOPHANE 3ML VIAL SC SCH (20:39)
[2018-06-20] VITALS (9 sets, daily range): BP systolic 105–114; BP diastolic 66–78; PULSE 55–118; RESP 16–18
[2018-06-20] MEDS: ACCU-CHEK XX SCH (01:05)
[2018-06-20] MEDS: PANTOPRAZOLE (EC) 40 MG TAB PO SCH (05:55)
[2018-06-20] MEDS: INSULIN ASPART [NOVOLOG] 3 ML PEN SC SCH ×4 (08:31→20:23)
[2018-06-20] MEDS: ASCORBIC ACID 500 MG TAB PO SCH (08:59)
[2018-06-20] MEDS: FERROUS SULFATE (EC) 325 MG TAB PO SCH (08:59)
[2018-06-20] MEDS: VORICONAZOLE 200 MG TAB PO SCH (09:00)
[2018-06-20] MEDS: metFORMIN 500 MG TAB PO SCH ×2 (09:00→16:59)
[2018-06-20] MEDS: GUAIFENESIN/DM (SR) TAB PO SCH ×2 (09:00→20:23)
[2018-06-20] MEDS: DOXYCYCLINE 100 MG TAB PO SCH (09:00)
[2018-06-20] MEDS: ZYVOX 600 MG TAB PO SCH ×2 (09:00→20:23)
[2018-06-20] MEDS: GLIMEPIRIDE 2 MG TAB PO SCH ×2 (09:00→16:59)
--- NOTE | 2018-06-20 11:04 | PN ---
Date/Time of Note Date/Time of Note DATE: 06/20/18 TIME: 11:01 Assessment/Plan VTE Prophylaxis Risk score (from Ns)>0 risk: 3 SCD applied (from [facility] [place]): No SCD contraindicated: low risk/ambulating Pharmacological prophylaxis: NA/contraindicated Pharm contraindication: low risk/ambulating Lines/Catheters IV Catheter Type (from [facility]): [place] [facility] Urinary Cath still in place: No Assessment/Plan Assessment/Plan 1. Sepsis with MRSA bacteremia and PNA - improving - WBC continues to trend down. Noted with MRSA in sputum and blood cultures - ID on board and appreciate recommendations. Continue on current antibiotics 2. Tachycardia - Asymptomatic - Secondary to above bacteremia and pneumonia 3. Poorly controlled diabetes - A1c noted - glucose fluctuating yesterday - Endocrinology on board and appreciate recommendations. Continue on current insulin and glimepiride. 4. Extensive bilateral multilobar pneumonia - Pulm on board and continue current treatment. Awaiting AFB and cocci studies - Sputum cultures growing MRSA - CT concerning for developing cavitation/necrotizing pna - Continue current antibiotics per ID recommendations 5. Homelessness - SW on board 6. History of meth abuse - Patient states last use was 2 weeks prior to admission. Counseled on cessation. 7. Tobacco use - Cessation advised. 8. Iron Deficient anemia. - Continue oral iron. - H&H stable. 9. Mild asthma. - Currently stable. At this time, this is controlled with as needed SELMA 10. Disposition - Continue current treatment of MRSA bacteremia and pneumonia. Awaiting final AFB and cocci serology Result Diagram: 06/20/18 0536 06/20/18 0536 Results 24hrs Laboratory Tests Test 06/19/18 11:50 06/19/18 18:02 06/19/18 20:28 06/20/18 05:36 Bedside Glucose 236 H 350 H 155 White Blood Count 11.1 H Red Blood Count 4.25 Hemoglobin 11.6 L Hematocrit 37.8 Mean Corpuscular Volume 88.9 Mean Corpuscular 27.3 L Hemoglobin Mean Corpuscular 30.7 L Hemoglobin Concent Red Cell Distribution 16.8 H Width Platelet Count 885 H Mean Platelet Volume 9.5 Immature Granulocytes % 1.600 H Neutrophils % 65.1 Lymphocytes % 26.8 Monocytes % 4.2 Eosinophils % 1.8 Basophils % 0.5 Nucleated Red Blood 0.0 Cells % Immature Granulocytes # 0.180 H Neutrophils # 7.3 Lymphocytes # 3.0 H Monocytes # 0.5 Eosinophils # 0.2 Basophils # 0.1 Nucleated Red Blood 0.0 Cells # Sodium Level 138 Potassium Level 4.3 Chloride Level 100 Carbon Dioxide Level 28 Anion Gap 10 Blood Urea Nitrogen 13 Creatinine 0.44 Est Glomerular Filtrat > 60 Rate mL/min Glucose Level 168 Calcium Level 9.7 Phosphorus Level 4.6 Magnesium Level 1.8 Test 06/20/18 08:19 Bedside Glucose 176 Subjective 24 Hr Interval Summary Free Text/Dictation Patient denies any worsening of respiratory status. Complaining of fatigue and requesting to sleep. No acute overnight events. Exam/Review of Systems Exam Vitals Vital Signs Date Temp Pulse Resp B/P (MAP) Pulse Ox O2 O2 Flow FiO2 Time Delivery Rate 06/20/18 101 08:26 06/20/18 98.7 16 113/67 92 07:54 (82) 06/19/18 Room Air 15:59 06/18/18 2.0 08:00 Intake and Output 06/19/18 06/19/18 06/20/18 1515:00 23:00 07:00 IntakeIntake Total 360 ml 1000 ml 800 ml BalanceBalance 360 ml 1000 ml 800 ml Exam General: Patient is laying in bed and answers questions appropriately. no acute distress Neck: Supple Respiratory: diminished bilaterally. no wheezing appreciated Cardiovascular: regular rhythm, tachycardia, no obvious murmurs Gastrointestinal: non-tender to palpation, bowel sounds heard. Neurological: Moves all extremities spontaneously Skin: No new skin lesions Results Results 24hrs Laboratory Tests Test 06/19/18 11:50 06/19/18 18:02 06/19/18 20:28 06/20/18 05:36 Bedside Glucose 236 H 350 H 155 White Blood Count 11.1 H Red Blood Count 4.25 Hemoglobin 11.6 L Hematocrit 37.8 Mean Corpuscular Volume 88.9 Mean Corpuscular 27.3 L Hemoglobin Mean Corpuscular 30.7 L Hemoglobin Concent Red Cell Distribution 16.8 H Width Platelet Count 885 H Mean Platelet Volume 9.5 Immature Granulocytes % 1.600 H Neutrophils % 65.1 Lymphocytes % 26.8 Monocytes % 4.2 Eosinophils % 1.8 Basophils % 0.5 Nucleated Red Blood 0.0 Cells % Immature Granulocytes # 0.180 H Neutrophils # 7.3 Lymphocytes # 3.0 H Monocytes # 0.5 Eosinophils # 0.2 Basophils # 0.1 Nucleated Red Blood 0.0 Cells # Sodium Level 138 Potassium Level 4.3 Chloride Level 100 Carbon Dioxide Level 28 Anion Gap 10 Blood Urea Nitrogen 13 Creatinine 0.44 Est Glomerular Filtrat > 60 Rate mL/min Glucose Level 168 Calcium Level 9.7 Phosphorus Level 4.6 Magnesium Level 1.8 Test 06/20/18 08:19 Bedside Glucose 176 Medications Medication Current Medications Ondansetron HCl (Zofran Inj) 4 mg Q6H PRN IV NAUSEA AND/OR VOMITING; Start 06/09/18 at 00:30 Ipratropium [place] (Atrovent 0.02% (Neb)) 0.5 mg Q2H RESP THERAPY PRN NEB SHORTNESS OF BREATH Last administered on 06/14/18at 21:38; Admin Dose 0.5 MG; St art 06/09/18 at 00:30 Acetaminophen (Tylenol Liquid) 650 mg Q6H PRN PO PAIN LEVEL 1-3 OR FEVER Last administered on 06/18/18at 05:57; Admin Dose 650 MG; Start 06/09/18 at 00:30 Docusate Sodium (Colace) 100 mg Q12H PRN PO CONSTIPATION; Start 06/09/18 at 00:30 Bisacodyl (Dulcolax) 5 mg DAILY PRN PO CONSTIPATION; Start 06/09/18 at 00:30 Pantoprazole (Protonix Tab) 40 mg DAILY@06 PO Last administered on 06/20/18at 05:55; Admin Dose 40 MG; Start 06/09/18 at 06:00 Diagnostic Test (Pha) (Accu-Chek) 1 ea 02 XX Last administered on 06/17/18at 02:00; Admin Dose 1 EA; Start 06/10/18 at 02:00 Insulin Aspart (Novolog Insulin Pen) NOVOLOG *MILD* ALGORITHM WITH MEALS BEDTIME SC Last administered on 06/20/18at 08:31; Admin Dose 1 UNIT; Start 06/09/18 at 18:00 Miscellaneous Information 1 ea NOTE XX ; Start 06/09/18 at 14:30 Glucose (Glutose) 15 gm Q15M PRN PO DECREASED GLUCOSE; Start 06/09/18 at 14:30 Glucose (Glutose) 22.5 gm Q15M PRN PO DECREASED GLUCOSE; Start 06/09/18 at 14:30 Dextrose (D50w Syringe) 25 ml Q15M PRN IV DECREASED GLUCOSE Last administered on 06/15/18 20:53; Admin Dose 25 ML; Start 06/09/18 at 14:30 Dextrose (D50w Syringe) 50 ml Q15M PRN IV DECREASED GLUCOSE; Start 06/09/18 at 14:30 Glucagon (Glucagen) 1 mg Q15M PRN IM DECREASED GLUCOSE; Start 06/09/18 at 14:30 Glucose (Glutose) 15 gm Q15M PRN BUCCAL DECREASED GLUCOSE; Start 06/09/18 at 14:30 Ferrous Sulfate (Ferrous Sulfate (Ec)) 325 mg DAILY PO Last administered on 06/20/18 08:59; Admin Dose 325 MG; Start 06/13/18 at 10:30; Stop 08/12/18 at 10:29 Glimepiride (Amaryl) 4 mg AC BREAKFAST DINNER PO Last administered on 06/20/18 09:00; Admin Dose 4 MG; Start 06/13/18 at 17:30 Levalbuterol (Xopenex Neb) 1.25 mg Q6H RESP THERAPY PRN HHN sob/wheezing Last administered on 06/14/18 21:38; Admin Dose 1.25 MG; Start 06/14/18 at 09:00 Guaifenesin/ Dextromethorphan (Mucinex Dm) 1 tab BID PO Last administered on 06/20/18 09:00; Admin Dose 1 TAB; Start 06/14/18 at 09:30 Metformin HCl (Glucophage) 1,000 mg BID WITH MEALS PO Last administered on 06/20/18 09:00; Admin Dose 1,000 MG; Start 06/16/18 at 18:00 Ascorbic Acid (Vitamin C) 500 mg DAILY PO Last administered on 06/20/18 08:59; Admin Dose 500 MG; Start 06/17/18 at 09:00; Stop 08/16/18 at 08:59 Voriconazole (Vfend) 200 mg BID PO Last administered on 06/20/18 09:00; Admin Dose 200 MG; Start 06/17/18 at 12:30 Insulin Human NPH (Humulin N) 12 unit DAILY@20 SC Last administered on 06/19/18 20:39; Admin Dose 12 UNIT; Start 06/17/18 at 20:00 Guaifenesin/ Codeine Phosphate (Robitussin Ac Liquid Cup) 5 ml Q4H PRN PO cough Last administered on 06/18/18at 20:25; Admin Dose 5 ML; Start 06/18/18 at 12:00 Linezolid (Zyvox) 600 mg BID PO Last administered on 06/20/18 09:00; Admin Dose 600 MG; Start 06/18/18 at 21:00 Ertapenem 1 gm/ Sodium Chloride 100 ml @ 200 mls/hr Q24H IVPB Last administered on 06/19/18at 15:33; Admin Dose 200 MLS/HR; Start 06/18/18 at 15:30 Doxycycline Hyclate (Vibramycin) 100 mg BID PO Last administered on 06/20/18at 09:00; Admin Dose 100 MG; Start 06/18/18 at 15:30 Zolpidem Tartrate (Ambien) 5 mg HS MAY REPEAT X 1 PRN PO INSOMNIA Last administered on 06/19/18at 20:34; Admin Dose 5 MG; Start 06/19/18 at 16:30 DAVE HAMMONDS MD Jun 20, 2018 11:04
--- NOTE | 2018-06-20 13:21 | CONS ---
Assessment/Plan Assessment/Plan Problems: (1) Diabetes mellitus type 2 in nonobese Status: Chronic Comment: Sugar control is coming into line nicely with a simplified regimen and the patient's sepsis being treated successfully. Please note at discharge specify in the orders-prescriptions for Novolin NPH insulin. The reason phlebitis of the pharmacy might substitute Humulin NPH which caused 5 times as much Consultation Date/Type/Reason Admit Date/Time Jun 08, 2018 at 23:53 Initial Consult Date June 09, 2018 Type of Consult Endocrinology Reason for Consultation Diabetes mellitus type 2 with DKA induced by severe stress and sepsis; MRSA bacteria with necrotizing pneumonia; Requesting Provider: ARIS ANDERSEN Date/Time of Note DATE: 06/20/18 TIME: 13:19 24 HR Interval Summary Free Text/Dictation Still has cough and shortness of breath. Constitutional: no complaints (Denies fevers chills or sweats) Detailed Summary Respiratory: cough, shortness of breath Gastrointestinal: no complaints Genitourinary: no complaints Endocrine: no complaints Exam/Review of Systems Exam Vitals Vital Signs Date Temp Pulse Resp B/P (MAP) Pulse Ox O2 O2 Flow FiO2 Time Delivery Rate 06/20/18 108 12:16 06/20/18 98.8 108/68 100 11:31 (81) 06/20/18 16 07:54 06/19/18 Room Air 15:59 06/18/18 2.0 08:00 Intake and Output 06/19/18 06/19/18 06/20/18 1414:59 22:59 06:59 IntakeIntake Total 360 ml 1000 ml 800 ml BalanceBalance 360 ml 1000 ml 800 ml Constitutional: alert, oriented Respiratory: clear to auscultation, normal air movement Cardiovascular: regular rate and rhythm, nl pulses Gastrointestinal: soft, nl liver, spleen, non-tender Results Result Diagram: 06/20/18 0536 06/20/18 0536 Results 24hrs Laboratory Tests Test 06/19/18 18:02 06/19/18 20:28 06/20/18 05:36 06/20/18 08:19 Bedside Glucose 350 H 155 176 White Blood Count 11.1 H Red Blood Count 4.25 Hemoglobin 11.6 L Hematocrit 37.8 Mean Corpuscular Volume 88.9 Mean Corpuscular 27.3 L Hemoglobin Mean Corpuscular 30.7 L Hemoglobin Concent Red Cell Distribution 16.8 H Width Platelet Count 885 H Mean Platelet Volume 9.5 Immature Granulocytes % 1.600 H Neutrophils % 65.1 Lymphocytes % 26.8 Monocytes % 4.2 Eosinophils % 1.8 Basophils % 0.5 Nucleated Red Blood 0.0 Cells % Immature Granulocytes # 0.180 H Neutrophils # 7.3 Lymphocytes # 3.0 H Monocytes # 0.5 Eosinophils # 0.2 Basophils # 0.1 Nucleated Red Blood 0.0 Cells # Sodium Level 138 Potassium Level 4.3 Chloride Level 100 Carbon Dioxide Level 28 Anion Gap 10 Blood Urea Nitrogen 13 Creatinine 0.44 Est Glomerular Filtrat > 60 Rate mL/min Glucose Level 168 Calcium Level 9.7 Phosphorus Level 4.6 Magnesium Level 1.8 Test 06/20/18 12:02 Bedside Glucose 200 Medications Medication Current Medications Ondansetron HCl (Zofran Inj) 4 mg Q6H PRN IV NAUSEA AND/OR VOMITING; Start 06/09/18 at 00:30 Ipratropium [place] (Atrovent 0.02% (Neb)) 0.5 mg Q2H RESP THERAPY PRN NEB SHORTNESS OF BREATH Last administered on 06/14/18at 21:38; Admin Dose 0.5 MG; Start 06/09/18 at 00:30 Acetaminophen (Tylenol Liquid) 650 mg Q6H PRN PO PAIN LEVEL 1-3 OR FEVER Last administered on 06/18/18at 05:57; Admin Dose 650 MG; Start 06/09/18 at 00:30 Docusate Sodium (Colace) 100 mg Q12H PRN PO CONSTIPATION; Start 06/09/18 at 00:30 Bisacodyl (Dulcolax) 5 mg DAILY PRN PO CONSTIPATION; Start 06/09/18 at 00:30 Pantoprazole (Protonix Tab) 40 mg DAILY@06 PO Last administered on 06/20/18at 05:55; Admin Dose 40 MG; Start 06/09/18 at 06:00 Diagnostic Test (Pha) (Accu-Chek) 1 ea 02 XX Last administered on 06/17/18 02:00; Admin Dose 1 EA; Start 06/10/18 at 02:00 Insulin Aspart (Novolog Insulin Pen) NOVOLOG *MILD* ALGORITHM WITH MEALS BEDTIME SC Last administered on 06/20/18 12:07; Admin Dose 2 UNIT; Start 06/09/18 at 18:00 Miscellaneous Information 1 ea NOTE XX ; Start 06/09/18 at 14:30 Glucose (Glutose) 15 gm Q15M PRN PO DECREASED GLUCOSE; Start 06/09/18 at 14:30 Glucose (Glutose) 22.5 gm Q15M PRN PO DECREASED GLUCOSE; Start 06/09/18 at 14:30 Dextrose (D50w Syringe) 25 ml Q15M PRN IV DECREASED GLUCOSE Last administered on 06/15/18at 20:53; Admin Dose 25 ML; Start 06/09/18 at 14:30 Dextrose (D50w Syringe) 50 ml Q15M PRN IV DECREASED GLUCOSE; Start 06/09/18 at 14:30 Glucagon (Glucagen) 1 mg Q15M PRN IM DECREASED GLUCOSE; Start 06/09/18 at 14:30 Glucose (Glutose) 15 gm Q15M PRN BUCCAL DECREASED GLUCOSE; Start 06/09/18 at 14:30 Ferrous Sulfate (Ferrous Sulfate (Ec)) 325 mg DAILY PO Last administered on 06/20/18 08:59; Admin Dose 325 MG; Start 06/13/18 at 10:30; Stop 08/12/18 at 10:29 Glimepiride (Amaryl) 4 mg AC BREAKFAST DINNER PO Last administered on 06/20/18 09:00; Admin Dose 4 MG; Start 06/13/18 at 17:30 Levalbuterol (Xopenex Neb) 1.25 mg Q6H RESP THERAPY PRN HHN sob/wheezing Last administered on 06/14/18at 21:38; Admin Dose 1.25 MG; Start 06/14/18 at 09:00 Guaifenesin/ Dextromethorphan (Mucinex Dm) 1 tab BID PO Last administered on 06/20/18 09:00; Admin Dose 1 TAB; Start 06/14/18 at 09:30 Metformin HCl (Glucophage) 1,000 mg BID WITH MEALS PO Last administered on 06/20/18 09:00; Admin Dose 1,000 MG; Start 06/16/18 at 18:00 Ascorbic Acid (Vitamin C) 500 mg DAILY PO Last administered on 06/20/18 08:59; Admin Dose 500 MG; Start 06/17/18 at 09:00; Stop 08/16/18 at 08:59 Voriconazole (Vfend) 200 mg BID PO Last administered on 06/20/18 09:00; Admin Dose 200 MG; Start 06/17/18 at 12:30 Insulin Human NPH (Humulin N) 12 unit DAILY@20 SC Last administered on 06/19/18 20:39; Admin Dose 12 UNIT; Start 06/17/18 at 20:00 Guaifenesin/ Codeine Phosphate (Robitussin Ac Liquid Cup) 5 ml Q4H PRN PO cough Last administered on 06/18/18 20:25; Admin Dose 5 ML; Start 06/18/18 at 12:00 Linezolid (Zyvox) 600 mg BID PO Last administered on 06/20/18 09:00; Admin Dose 600 MG; Start 06/18/18 at 21:00 Ertapenem 1 gm/ Sodium Chloride 100 ml @ 200 mls/hr Q24H IVPB Last administered on 06/19/18 15:33; Admin Dose 200 MLS/HR; Start 06/18/18 at 15:30 Doxycycline Hyclate (Vibramycin) 100 mg BID PO Last administered on 06/20/18 09:00; Admin Dose 100 MG; Start 06/18/18 at 15:30 Zolpidem Tartrate (Ambien) 5 mg HS MAY REPEAT X 1 PRN PO INSOMNIA Last administered on 06/19/18 20:34; Admin Dose 5 MG; Start 06/19/18 at 16:30 STEVE AGGARWAL MD Jun 20, 2018 13:21
--- NOTE | 2018-06-20 13:31 | CONS ---
Consult Date/Type/Reason Admit Date/Time Jun 08, 2018 at 23:53 Initial Consult Date Type of Consult Pulmonary Requesting Provider: ARIS ANDERSEN Date/Time of Note DATE: 06/20/18 TIME: 13:30 Subjective Patient stable this morning decreased cough. Objective Vital Signs Date Temp Pulse Resp B/P (MAP) Pulse Ox O2 O2 Flow FiO2 Time Delivery Rate 06/20/18 108 12:16 06/20/18 98.8 108/68 100 11:31 (81) 06/20/18 16 07:54 06/19/18 Room Air 15:59 06/18/18 2.0 08:00 Intake and Output 06/19/18 06/19/18 06/20/18 1515:00 23:00 07:00 IntakeIntake Total 360 ml 1000 ml 800 ml BalanceBalance 360 ml 1000 ml 800 ml Exam GENERAL: Well-nourished well-developed lady comfortable at rest VITAL SIGNS: per chart NECK: Supple. No JVD or lymphadenopathy. CARDIAC EXAM: S1, S2. No added sounds or murmurs. CHEST: Diminished air entry bilaterally ABDOMEN: Soft, nontender. No guarding or rebound. EXTREMITIES: No cyanosis, clubbing or edema. NEUROLOGIC: Generalized weakness. No focal deficits. Vent Setting Fraction of Inspired Oxygen pe: 21 Results/Medications Result Diagram: 06/20/18 0536 06/20/18 0536 Results 24 hrs Laboratory Tests Test 06/19/18 18:02 06/19/18 20:28 06/20/18 05:36 06/20/18 08:19 Bedside Glucose 350 H 155 176 White Blood Count 11.1 H Red Blood Count 4.25 Hemoglobin 11.6 L Hematocrit 37.8 Mean Corpuscular Volume 88.9 Mean Corpuscular 27.3 L Hemoglobin Mean Corpuscular 30.7 L Hemoglobin Concent Red Cell Distribution 16.8 H Width Platelet Count 885 H Mean Platelet Volume 9.5 Immature Granulocytes % 1.600 H Neutrophils % 65.1 Lymphocytes % 26.8 Monocytes % 4.2 Eosinophils % 1.8 Basophils % 0.5 Nucleated Red Blood 0.0 Cells % Immature Granulocytes # 0.180 H Neutrophils # 7.3 Lymphocytes # 3.0 H Monocytes # 0.5 Eosinophils # 0.2 Basophils # 0.1 Nucleated Red Blood 0.0 Cells # Sodium Level 138 Potassium Level 4.3 Chloride Level 100 Carbon Dioxide Level 28 Anion Gap 10 Blood Urea Nitrogen 13 Creatinine 0.44 Est Glomerular Filtrat > 60 Rate mL/min Glucose Level 168 Calcium Level 9.7 Phosphorus Level 4.6 Magnesium Level 1.8 Test 06/20/18 12:02 Bedside Glucose 200 Medications Current Medications Ondansetron HCl (Zofran Inj) 4 mg Q6H PRN IV NAUSEA AND/OR VOMITING; Start 06/09/18 at 00:30 Ipratropium [place] (Atrovent 0.02% (Neb)) 0.5 mg Q2H RESP THERAPY PRN NEB SHORTNESS OF BREATH Last administered on 06/14/18at 21:38; Admin Dose 0.5 MG; Start 06/09/18 at 00:30 Acetaminophen (Tylenol Liquid) 650 mg Q6H PRN PO PAIN LEVEL 1-3 OR FEVER Last administered on 06/18/18at 05:57; Admin Dose 650 MG; Start 06/09/18 at 00:30 Docusate Sodium (Colace) 100 mg Q12H PRN PO CONSTIPATION; Start 06/09/18 at 00:30 Bisacodyl (Dulcolax) 5 mg DAILY PRN PO CONSTIPATION; Start 06/09/18 at 00:30 Pantoprazole (Protonix Tab) 40 mg DAILY@06 PO Last administered on 06/20/18at 05:55; Admin Dose 40 MG; Start 06/09/18 at 06:00 Diagnostic Test (Pha) (Accu-Chek) 1 ea 02 XX Last administered on 06/17/18at 02:00; Admin Dose 1 EA; Start 06/10/18 at 02:00 Insulin Aspart (Novolog Insulin Pen) NOVOLOG *MILD* ALGORITHM WITH MEALS BEDTIME SC Last administered on 06/20/18at 12:07; Admin Dose 2 UNIT; Start 06/09/18 at 18:00 Miscellaneous Information 1 ea NOTE XX ; Start 06/09/18 at 14:30 Glucose (Glutose) 15 gm Q15M PRN PO DECREASED GLUCOSE; Start 06/09/18 at 14:30 Glucose (Glutose) 22.5 gm Q15M PRN PO DECREASED GLUCOSE; Start 06/09/18 at 14:30 Dextrose (D50w Syringe) 25 ml Q15M PRN IV DECREASED GLUCOSE Last administered on 3/28/19at 20:53; Admin Dose 25 ML; Start 06/09/18 at 14:30 Dextrose (D50w Syringe) 50 ml Q15M PRN IV DECREASED GLUCOSE; Start 06/09/18 at 14:30 Glucagon (Glucagen) 1 mg Q15M PRN IM DECREASED GLUCOSE; Start 06/09/18 at 14:30 Glucose (Glutose) 15 gm Q15M PRN BUCCAL DECREASED GLUCOSE; Start 06/09/18 at 14:30 Ferrous Sulfate (Ferrous Sulfate (Ec)) 325 mg DAILY PO Last administered on 06/20/18 08:59; Admin Dose 325 MG; Start 06/13/18 at 10:30; Stop 08/12/18 at 10:29 Glimepiride (Amaryl) 4 mg AC BREAKFAST DINNER PO Last administered on 06/20/18 09:00; Admin Dose 4 MG; Start 06/13/18 at 17:30 Levalbuterol (Xopenex Neb) 1.25 mg Q6H RESP THERAPY PRN HHN sob/wheezing Last administered on 06/14/18 21:38; Admin Dose 1.25 MG; Start 06/14/18 at 09:00 Guaifenesin/ Dextromethorphan (Mucinex Dm) 1 tab BID PO Last administered on 06/20/18 09:00; Admin Dose 1 TAB; Start 06/14/18 at 09:30 Metformin HCl (Glucophage) 1,000 mg BID WITH MEALS PO Last administered on 06/20/18 09:00; Admin Dose 1,000 MG; Start 06/16/18 at 18:00 Ascorbic Acid (Vitamin C) 500 mg DAILY PO Last administered on 06/20/18 08:59; Admin Dose 500 MG; Start 06/17/18 at 09:00; Stop 08/16/18 at 08:59 Voriconazole (Vfend) 200 mg BID PO Last administered on 06/20/18 09:00; Admin Dose 200 MG; Start 06/17/18 at 12:30 Insulin Human NPH (Humulin N) 12 unit DAILY@20 SC Last administered on 06/19/18 20:39; Admin Dose 12 UNIT; Start 06/17/18 at 20:00 Guaifenesin/ Codeine Phosphate (Robitussin Ac Liquid Cup) 5 ml Q4H PRN PO cough Last administered on 06/18/18 20:25; Admin Dose 5 ML; Start 06/18/18 at 12:00 Linezolid (Zyvox) 600 mg BID PO Last administered on 06/20/18 09:00; Admin Dose 600 MG; Start 06/18/18 at 21:00 Ertapenem 1 gm/ Sodium Chloride 100 ml @ 200 mls/hr Q24H IVPB Last administered on 06/19/18 15:33; Admin Dose 200 MLS/HR; Start 06/18/18 at 15:30 Doxycycline Hyclate (Vibramycin) 100 mg BID PO Last administered on 06/20/18 09:00; Admin Dose 100 MG; Start 06/18/18 at 15:30 Zolpidem Tartrate (Ambien) 5 mg HS MAY REPEAT X 1 PRN PO INSOMNIA Last administered on 06/19/18 20:34; Admin Dose 5 MG; Start 06/19/18 at 16:30 Assessment/Plan Hospital Course (Demo Recall) Assessment 1. Homeless lady with bilateral infiltrates cavitating some areas concerning for possible Mycobacterium tuberculosis. Negative AFB x2 QuantiFERON gold pending Plan 1. Continue current antibiotics with improved leukocytosis 2. Await QuantiFERON gold and coccidiomycosis serology 3. Low threshold for bronchoscopy if no improvement in infiltrates 4. Repeat chest x-ray. ALICIA HAZEL MD, [facility] Jun 20, 2018 13:31
[2018-06-20] MEDS: ERTAPENEM SODIUM 1 GM in SOD CHLORIDE 0.9% 100 ML IVPB SCH (14:23)
--- NOTE | 2018-06-20 14:25 | CONS ---
Assessment/Plan Assessment/Plan Hospital Course (Demo Recall) No events, looks comfortable, no fevers Sputum smears negative AFB 3 sets. WBC today 11.1 platelets 885 neutrophils 65.1 BUN 13 creatinine 0.44 Vanco trough 3 days ago 13.1 Microbiology: Blood culture on June 08 grew MRSA, repeat blood cultures negative, sputum culture on June 16 grew Talia albicans and MRSA. Serology for HIV negative Antimicrobials: Zyvox Invanz doxycycline, voriconazole Physical examination: Well-developed middle-aged woman who is alert in no distress. Head atraumatic normocephalic sclera nonicteric. Neck is supple chest rise symmetrical breath sounds diminished bases. Heart S1-S2. Abdomen soft bowel sounds present. Extremities without cyanosis. Assessment: 1. Resolving sepsis 2. MRSA bacteremia on admission 3. Necrotizing MRSA pneumonia with areas of cavitation per CT 4. Homelessness 5. Poorly controlled diabetes 6. History of recent meth amphetamine abuse Plan: Patient remained stable, repeat blood cultures negative, no obvious vegeta tions per 2D echo, DC Invanz and voriconazole, continue Zyvox, add fluconazole and Rifampin, consider discontinue pulmonary isolation. Consultation Date/Type/Reason Admit Date/Time Jun 08, 2018 at 23:53 Initial Consult Date Type of Consult id Requesting Provider: ARIS ANDERSEN Date/Time of Note DATE: 06/20/18 TIME: 14:23 Exam/Review of Systems Exam Vitals Vital Signs Date Temp Pulse Resp B/P (MAP) Pulse Ox O2 O2 Flow FiO2 Time Delivery Rate 06/20/18 108 12:16 06/20/18 98.8 108/68 100 11:31 (81) 06/20/18 16 07:54 06/19/18 Room Air 15:59 06/18/18 2.0 08:00 Intake and Output 06/19/18 06/19/18 06/20/18 1515:00 23:00 07:00 IntakeIntake Total 360 ml 1000 ml 800 ml BalanceBalance 360 ml 1000 ml 800 ml Results Result Diagram: 06/20/18 0536 06/20/18 0536 Results 24hrs Laboratory Tests Test 06/19/18 18:02 06/19/18 20:28 06/20/18 05:36 06/20/18 08:19 Bedside Glucose 350 H 155 176 White Blood Count 11.1 H Red Blood Count 4.25 Hemoglobin 11.6 L Hematocrit 37.8 Mean Corpuscular Volume 88.9 Mean Corpuscular 27.3 L Hemoglobin Mean Corpuscular 30.7 L Hemoglobin Concent Red Cell Distribution 16.8 H Width Platelet Count 885 H Mean Platelet Volume 9.5 Immature Granulocytes % 1.600 H Neutrophils % 65.1 Lymphocytes % 26.8 Monocytes % 4.2 Eosinophils % 1.8 Basophils % 0.5 Nucleated Red Blood 0.0 Cells % Immature Granulocytes # 0.180 H Neutrophils # 7.3 Lymphocytes # 3.0 H Monocytes # 0.5 Eosinophils # 0.2 Basophils # 0.1 Nucleated Red Blood 0.0 Cells # Sodium Level 138 Potassium Level 4.3 Chloride Level 100 Carbon Dioxide Level 28 Anion Gap 10 Blood Urea Nitrogen 13 Creatinine 0.44 Est Glomerular Filtrat > 60 Rate mL/min Glucose Level 168 Calcium Level 9.7 Phosphorus Level 4.6 Magnesium Level 1.8 Test 06/20/18 12:02 Bedside Glucose 200 Medications Medication Current Medications Ondansetron HCl (Zofran Inj) 4 mg Q6H PRN IV NAUSEA AND/OR VOMITING; Start 06/09/18 at 00:30 Ipratropium [place] (Atrovent 0.02% (Neb)) 0.5 mg Q2H RESP THERAPY PRN NEB SHORTNESS OF BREATH Last administered on 06/14/18at 21:38; Admin Dose 0.5 MG; Start 06/09/18 at 00:30 Acetaminophen (Tylenol Liquid) 650 mg Q6H PRN PO PAIN LEVEL 1-3 OR FEVER Last administered on 06/18/18at 05:57; Admin Dose 650 MG; Start 06/09/18 at 00:30 Docusate Sodium (Colace) 100 mg Q12H PRN PO CONSTIPATION; Start 06/09/18 at 00:30 Bisacodyl (Dulcolax) 5 mg DAILY PRN PO CONSTIPATION; Start 06/09/18 at 00:30 Pantoprazole (Protonix Tab) 40 mg DAILY@06 PO Last administered on 06/20/18at 05:55; Admin Dose 40 MG; Start 06/09/18 at 06:00 Diagnostic Test (Pha) (Accu-Chek) 1 ea 02 XX Last administered on 06/17/18at 02:00; Admin Dose 1 EA; Start 06/10/18 at 02:00 Insulin Aspart (Novolog Insulin Pen) NOVOLOG *MILD* ALGORITHM WITH MEALS BEDTIME SC Last administered on 06/20/18at 12:07; Admin Dose 2 UNIT; Start 06/09/18 at 18:00 Miscellaneous Information 1 ea NOTE XX ; Start 06/09/18 at 14:30 Glucose (Glutose) 15 gm Q15M PRN PO DECREASED GLUCOSE; Start 06/09/18 at 14:30 Glucose (Glutose) 22.5 gm Q15M PRN PO DECREASED GLUCOSE; Start 06/09/18 at 14:30 Dextrose (D50w Syringe) 25 ml Q15M PRN IV DECREASED GLUCOSE Last administered on 06/15/18at 20:53; Admin Dose 25 ML; Start 06/09/18 at 14:30 Dextrose (D50w Syringe) 50 ml Q15M PRN IV DECREASED GLUCOSE; Start 06/09/18 at 14:30 Glucagon (Glucagen) 1 mg Q15M PRN IM DECREASED GLUCOSE; Start 06/09/18 at 14:30 Glucose (Glutose) 15 gm Q15M PRN BUCCAL DECREASED GLUCOSE; Start 06/09/18 at 14:30 Ferrous Sulfate (Ferrous Sulfate (Ec)) 325 mg DAILY PO Last administered on 06/20/18at 08:59; Admin Dose 325 MG; Start 06/13/18 at 10:30; Stop 08/12/18 at 10:29 Glimepiride (Amaryl) 4 mg AC BREAKFAST DINNER PO Last administered on 06/20/18 09:00; Admin Dose 4 MG; Start 06/13/18 at 17:30 Levalbuterol (Xopenex Neb) 1.25 mg Q6H RESP THERAPY PRN HHN sob/wheezing Last administered on 06/14/18at 21:38; Admin Dose 1.25 MG; Start 06/14/18 at 09:00 Guaifenesin/ Dextromethorphan (Mucinex Dm) 1 tab BID PO Last administered on 06/20/18at 09:00; Admin Dose 1 TAB; Start 06/14/18 at 09:30 Metformin HCl (Glucophage) 1,000 mg BID WITH MEALS PO Last administered on 06/20/18at 09:00; Admin Dose 1,000 MG; Start 06/16/18 at 18:00 Ascorbic Acid (Vitamin C) 500 mg DAILY PO Last administered on 06/20/18 08:59; Admin Dose 500 MG; Start 06/17/18 at 09:00; Stop 08/16/18 at 08:59 Voriconazole (Vfend) 200 mg BID PO Last administered on 06/20/18 09:00; Admin Dose 200 MG; Start 06/17/18 at 12:30 Insulin Human NPH (Humulin N) 12 unit DAILY@20 SC Last administered on 06/19/18 20:39; Admin Dose 12 UNIT; Start 06/17/18 at 20:00 Guaifenesin/ Codeine Phosphate (Robitussin Ac Liquid Cup) 5 ml Q4H PRN PO cough Last administered on 06/18/18 20:25; Admin Dose 5 ML; Start 06/18/18 at 12:00 Linezolid (Zyvox) 600 mg BID PO Last administered on 06/20/18 09:00; Admin Dose 600 MG; Start 06/18/18 at 21:00 Ertapenem 1 gm/ Sodium Chloride 100 ml @ 200 mls/hr Q24H IVPB Last ad ministered on 06/20/18 14:23; Admin Dose 200 MLS/HR; Start 06/18/18 at 15:30 Doxycycline Hyclate (Vibramycin) 100 mg BID PO Last administered on 06/20/18 09:00; Admin Dose 100 MG; Start 06/18/18 at 15:30 Zolpidem Tartrate (Ambien) 5 mg HS MAY REPEAT X 1 PRN PO INSOMNIA Last administered on 06/19/18 20:34; Admin Dose 5 MG; Start 06/19/18 at 16:30 JOSE GOVEA STONE GLUER Jun 20, 2018 14:25
[2018-06-20] MEDS: RIFAMPIN 300 MG CAP PO SCH (15:28)
[2018-06-20] MEDS: ZOLPIDEM 5 MG TAB PO PRN (20:25)
[2018-06-20] MEDS: NPH, HUMAN INSULIN ISOPHANE 3ML VIAL SC SCH (20:34)
[2018-06-21] VITALS (9 sets, daily range): BP systolic 102–120; BP diastolic 65–74; PULSE 98–123; RESP 18–20
[2018-06-21] MEDS: ACCU-CHEK XX SCH (01:57)
[2018-06-21] MEDS: PANTOPRAZOLE (EC) 40 MG TAB PO SCH (05:25)
[2018-06-21] MEDS: INSULIN ASPART [NOVOLOG] 3 ML PEN SC SCH ×4 (07:31→20:54)
--- NOTE | 2018-06-21 08:39 | PN ---
Date/Time of Note Date/Time of Note DATE: 06/21/18 TIME: 08:39 Assessment/Plan VTE Prophylaxis Risk score (from Ns)>0 risk: 3 [place] [facility] [place] contraindicated: low risk/ambulating Pharmacological prophylaxis: NA/contraindicated Pharm contraindication: low risk/ambulating Lines/Catheters IV Catheter Type (from [facility]): Saline Lock Urinary Cath still in place: No Assessment/Plan Assessment/Plan 1. Sepsis with MRSA bacteremia and PNA - improving but still with shortness of breath with exertion - WBC continues to trend down. Noted with MRSA in sputum and blood cultures - ID on board and appreciate recommendations. Continue on current antibiotics 2. Tachycardia - Asymptomatic - Secondary to above bacteremia and pneumonia 3. Poorly controlled diabetes - A1c noted - better controlled - Endocrinology on board and appreciate recommendations. Continue on current insulin and glimepiride. 4. Extensive bilateral multilobar pneumonia - Pulm on board and continue current treatment. Awaiting AFB and cocci studies. Repeat CT scan performed this am showing "Multifocal bilateral areas of pneumonia are again present and have diminished in overall size however there is interval development of multiple foci of lucencies within the areas of consolidation suggestive for bronchiectasis or developing small cavitary lesio ns." - Sputum cultures growing MRSA - Continue current antibiotics per ID recommendations 5. Homelessness - SW on board - patient states she plans to go to rehab following discharge 6. History of meth abuse - Patient states last use was 2 weeks prior to admission. Counseled on cessation. 7. Tobacco use - Cessation advised. 8. Iron Deficient anemia. - Continue oral iron. - H&H stable. 9. Mild asthma. - Currently stable. At this time, this is controlled with as needed SELMA 10. Disposition - Repeat CT scan shows developing cavitary lesions vs bronchiectasis. When ambulation better with less SOB, will d/c. Will plan to have medications delivered prior to discharge. Result Diagram: 06/20/18 0536 06/20/18 0536 Results 24hrs Laboratory Tests Test 06/20/18 12:02 06/20/18 16:56 06/20/18 20:22 06/21/18 07:29 Bedside Glucose 200 199 159 94 Subjective 24 Hr Interval Summary Free Text/Dictation Patient fatigue with shortness of breath with exertion. No acute overnight e vents. Exam/Review of Systems Exam Vitals Vital Signs Date Temp Pulse Resp B/P (MAP) Pulse Ox O2 O2 Flow FiO2 Time Delivery Rate 06/21/18 98.1 109 18 105/71 96 07:34 (82) 06/19/18 Room Air 15:59 06/18/18 2.0 08:00 Intake and Output 06/20/18 06/20/18 06/21/18 1515:00 23:00 07:00 IntakeIntake Total 1400 ml 900 ml BalanceBalance 1400 ml 900 ml Exam General: Patient is laying in bed and answers questions appropriately. no acute distress Neck: Supple Respiratory: diminished bilaterally. no wheezing appreciated Cardiovascular: regular rhythm, tachycardia, no obvious murmurs Gastrointestinal: non-tender to palpation, bowel sounds heard. Neurological: Moves all extremities spontaneously Skin: No new skin lesions Results Results 24hrs Laboratory Tests Test 06/20/18 12:02 06/20/18 16:56 06/20/18 20:22 06/21/18 07:29 Bedside Glucose 200 199 159 94 Medications Medication Current Medications Ondansetron HCl (Zofran Inj) 4 mg Q6H PRN IV NAUSEA AND/OR VOMITING; Start 06/09/18 at 00:30 Ipratropium [place] (Atrovent 0.02% (Neb)) 0.5 mg Q2H RESP THERAPY PRN NEB SHORTNESS OF BREATH Last administered on 06/14/18at 21:38; Admin Dose 0.5 MG; Start 06/09/18 at 00:30 Acetaminophen (Tylenol Liquid) 650 mg Q6H PRN PO PAIN LEVEL 1-3 OR FEVER Last administered on 06/18/18at 05:57; Admin Dose 650 MG; Start 06/09/18 at 00:30 Docusate Sodium (Colace) 100 mg Q12H PRN PO CONSTIPATION; Start 06/09/18 at 00:30 Bisacodyl (Dulcolax) 5 mg DAILY PRN PO CONSTIPATION; Start 06/09/18 at 00:30 Pantoprazole (Protonix Tab) 40 mg DAILY@06 PO Last administered on 06/21/18at 05:25; Admin Dose 40 MG; Start 06/09/18 at 06:00 Diagnostic Test (Pha) (Accu-Chek) 1 ea 02 XX Last administered on 06/17/18at 02:00; Admin Dose 1 EA; Start 06/10/18 at 02:00 Insulin Aspart (Novolog Insulin Pen) NOVOLOG *MILD* ALGORITHM WITH MEALS BEDTIME SC Last administered on 06/20/18 17:05; Admin Dose 2 UNIT; Start 06/09/18 at 18:00 Miscellaneous Information 1 ea NOTE XX ; Start 06/09/18 at 14:30 Glucose (Glutose) 15 gm Q15M PRN PO DECREASED GLUCOSE; Start 06/09/18 at 14:30 Glucose (Glutose) 22.5 gm Q15M PRN PO DECREASED GLUCOSE; Start 06/09/18 at 14:30 Dextrose (D50w Syringe) 25 ml Q15M PRN IV DECREASED GLUCOSE Last administered on 06/15/18at 20:53; Admin Dose 25 ML; Start 06/09/18 at 14:30 Dextrose (D50w Syringe) 50 ml Q15M PRN IV DECREASED GLUCOSE; Start 06/09/18 at 14:30 Glucagon (Glucagen) 1 mg Q15M PRN IM DECREASED GLUCOSE; Start 06/09/18 at 14:30 Glucose (Glutose) 15 gm Q15M PRN BUCCAL DECREASED GLUCOSE; Start 06/09/18 at 14:30 Ferrous Sulfate (Ferrous Sulfate (Ec)) 325 mg DAILY PO Last administered on 06/20/18 08:59; Admin Dose 325 MG; Start 06/13/18 at 10:30; Stop 08/12/18 at 10:29 Glimepiride (Amaryl) 4 mg AC BREAKFAST DINNER PO Last administered on 06/20/18at 16:59; Admin Dose 4 MG; Start 06/13/18 at 17:30 Levalbuterol (Xopenex Neb) 1.25 mg Q6H RESP THERAPY PRN HHN sob/wheezing Last administered on 06/14/18at 21:38; Admin Dose 1.25 MG; Start 06/14/18 at 09:00 Guaifenesin/ Dextromethorphan (Mucinex Dm) 1 tab BID PO Last administered on 06/20/18 20:23; Admin Dose 1 TAB; Start 06/14/18 at 09:30 Metformin HCl (Glucophage) 1,000 mg BID WITH MEALS PO Last administered on 06/20/18at 16:59; Admin Dose 1,000 MG; Start 06/16/18 at 18:00 Ascorbic Acid (Vitamin C) 500 mg DAILY PO Last administered on 06/20/18 08:59; Admin Dose 500 MG; Start 06/17/18 at 09:00; Stop 08/16/18 at 08:59 Insulin Human NPH (Humulin N) 12 unit DAILY@20 SC Last administered on 06/20/18 20:34; Admin Dose 12 UNIT; Start 06/17/18 at 20:00 Guaifenesin/ Codeine Phosphate (Robitussin Ac Liquid Cup) 5 ml Q4H PRN PO cough Last administered on 06/18/18at 20:25; Admin Dose 5 ML; Start 06/18/18 at 12:00 Linezolid (Zyvox) 600 mg BID PO Last administered on 06/20/18 20:23; Admin Dose 600 MG; Start 06/18/18 at 21:00 Zolpidem Tartrate (Ambien) 5 mg HS MAY REPEAT X 1 PRN PO INSOMNIA Last administered on 06/20/18 20:25; Admin Dose 5 MG; Start 06/19/18 at 16:30 Fluconazole (Diflucan) 100 mg DAILY PO ; Start 06/21/18 at 09:00 Rifampin (Rifampin) 600 mg DAILY PO Last administered on 06/20/18at 15:28; Admin Dose 600 MG; Start 06/20/18 at 14:30 DAVE HAMMONDS MD Jun 21, 2018 08:39
[2018-06-21] MEDS: metFORMIN 500 MG TAB PO SCH ×2 (08:49→17:07)
[2018-06-21] MEDS: RIFAMPIN 300 MG CAP PO SCH (08:50)
[2018-06-21] MEDS: GLIMEPIRIDE 2 MG TAB PO SCH ×2 (08:50→17:01)
[2018-06-21] MEDS: FLUCONAZOLE 100 MG TAB PO SCH (08:50)
[2018-06-21] MEDS: GUAIFENESIN/DM (SR) TAB PO SCH ×2 (08:50→20:54)
[2018-06-21] MEDS: ASCORBIC ACID 500 MG TAB PO SCH (08:50)
[2018-06-21] MEDS: FERROUS SULFATE (EC) 325 MG TAB PO SCH (08:50)
--- NOTE | 2018-06-21 12:00 | CONS ---
Assessment/Plan Assessment/Plan Hospital Course (Demo Recall) No events, looks comfortable, no fevers AFB smears negative 3 sets Microbiology: Blood culture on June 08 grew MRSA, repeat blood cultures negative, sputum culture on June 16 grew Talia albicans and MRSA. Serology for HIV negative Antimicrobials: Zyvox Rifampin Diflucan Physical examination: Well-developed middle-aged woman who is alert in no distress. Head atraumatic normocephalic sclera nonicteric. Neck is supple chest rise symmetrical breath sounds diminished bases. Heart S1-S2. Abdomen soft bowel sounds present. Extremities without cyanosis. Assessment: 1. Resolving sepsis 2. MRSA bacteremia on admission 3. Necrotizing MRSA pneumonia with areas of cavitation per CT 4. Homelessness 5. Poorly controlled diabetes 6. History of recent meth amphetamine abuse Plan: Patient remained stable, repeat blood cultures negative, no obvious veget ations per 2D echo, continue abx, f/u pulmonary rec-s, pending cocci serology Consultation Date/Type/Reason Admit Date/Time Jun 08, 2018 at 23:53 Initial Consult Date Type of Consult id Requesting Provider: ARIS ANDERSEN Date/Time of Note DATE: 06/21/18 TIME: 11:58 Exam/Review of Systems Exam Vitals Vital Signs Date Temp Pulse Resp B/P (MAP) Pulse Ox O2 O2 Flow FiO2 Time Delivery Rate 06/21/18 97.8 115 19 112/74 100 11:19 (87) 06/19/18 Room Air 15:59 06/18/18 2.0 08:00 Intake and Output 06/20/18 06/20/18 06/21/18 1515:00 23:00 07:00 IntakeIntake Total 1400 ml 900 ml BalanceBalance 1400 ml 900 ml Results Result Diagram: 06/20/18 0536 06/20/18 0536 Results 24hrs Laboratory Tests Test 06/20/18 12:02 06/20/18 16:56 06/20/18 20:22 06/21/18 07:29 Bedside Glucose 200 199 159 94 Medications Medication Current Medications Ondansetron HCl (Zofran Inj) 4 mg Q6H PRN IV NAUSEA AND/OR VOMITING; Start 06/09/18 at 00:30 Ipratropium [place] (Atrovent 0.02% (Neb)) 0.5 mg Q2H RESP THERAPY PRN NEB SHORTNESS OF BREATH Last administered on 06/14/18at 21:38; Admin Dose 0.5 MG; Start 06/09/18 at 00:30 Acetaminophen (Tylenol Liquid) 650 mg Q6H PRN PO PAIN LEVEL 1-3 OR FEVER Last administered on 06/18/18at 05:57; Admin Dose 650 MG; Start 06/09/18 at 00:30 Docusate Sodium (Colace) 100 mg Q12H PRN PO CONSTIPATION; Start 06/09/18 at 00:30 Bisacodyl (Dulcolax) 5 mg DAILY PRN PO CONSTIPATION; Start 06/09/18 at 00:30 Pantoprazole (Protonix Tab) 40 mg DAILY@06 PO Last administered on 06/21/18 05:25; Admin Dose 40 MG; Start 06/09/18 at 06:00 Diagnostic Test (Pha) (Accu-Chek) 1 ea 02 XX Last administered on 06/17/18at 02:00; Admin Dose 1 EA; Start 06/10/18 at 02:00 Insulin Aspart (Novolog Insulin Pen) NOVOLOG *MILD* ALGORITHM WITH MEALS BEDTIME SC Last administered on 06/20/18 17:05; Admin Dose 2 UNIT; Start 06/09/18 at 18:00 Miscellaneous Information 1 ea NOTE XX ; Start 06/09/18 at 14:30 Glucose (Glutose) 15 gm Q15M PRN PO DECREASED GLUCOSE; Start 06/09/18 at 14:30 Glucose (Glutose) 22.5 gm Q15M PRN PO DECREASED GLUCOSE; Start 06/09/18 at 14:30 Dextrose (D50w Syringe) 25 ml Q15M PRN IV DECREASED GLUCOSE Last administered on 06/15/18at 20:53; Admin Dose 25 ML; Start 06/09/18 at 14:30 Dextrose (D50w Syringe) 50 ml Q15M PRN IV DECREASED GLUCOSE; Start 06/09/18 at 14:30 Glucagon (Glucagen) 1 mg Q15M PRN IM DECREASED GLUCOSE; Start 06/09/18 at 14:30 Glucose (Glutose) 15 gm Q15M PRN BUCCAL DECREASED GLUCOSE; Start 06/09/18 at 14 :30 Ferrous Sulfate (Ferrous Sulfate (Ec)) 325 mg DAILY PO Last administered on 06/21/18at 08:50; Admin Dose 325 MG; Start 06/13/18 at 10:30; Stop 08/12/18 at 10:29 Glimepiride (Amaryl) 4 mg AC BREAKFAST DINNER PO Last administered on 06/21/18 08:50; Admin Dose 4 MG; Start 06/13/18 at 17:30 Levalbuterol (Xopenex Neb) 1.25 mg Q6H RESP THERAPY PRN HHN sob/wheezing Last administered on 06/14/18 21:38; Admin Dose 1.25 MG; Start 06/14/18 at 09:00 Guaifenesin/ Dextromethorphan (Mucinex Dm) 1 tab BID PO Last administered on 06/21/18 08:50; Admin Dose 1 TAB; Start 06/14/18 at 09:30 Metformin HCl (Glucophage) 1,000 mg BID WITH MEALS PO Last administered on 06/21/18 08:49; Admin Dose 1,000 MG; Start 06/16/18 at 18:00 Ascorbic Acid (Vitamin C) 500 mg DAILY PO Last administered on 06/21/18 08:50; Admin Dose 500 MG; Start 06/17/18 at 09:00; Stop 08/16/18 at 08:59 Insulin Human NPH (Humulin N) 12 unit DAILY@20 SC Last administered on 06/20/18 20:34; Admin Dose 12 UNIT; Start 06/17/18 at 20:00 Guaifenesin/ Codeine Phosphate (Robitussin Ac Liquid Cup) 5 ml Q4H PRN PO cough Last administered on 06/18/18 20:25; Admin Dose 5 ML; Start 06/18/18 at 12:00 Linezolid (Zyvox) 600 mg BID PO Last administered on 06/20/18 20:23; Admin Dose 600 MG; Start 06/18/18 at 21:00 Zolpidem Tartrate (Ambien) 5 mg HS MAY REPEAT X 1 PRN PO INSOMNIA Last administered on 06/20/18 20:25; Admin Dose 5 MG; Start 06/19/18 at 16:30 Fluconazole (Diflucan) 100 mg DAILY PO Last administered on 06/21/18 08:50; Admin Dose 100 MG; Start 06/21/18 at 09:00 Rifampin (Rifampin) 600 mg DAILY PO Last administered on 4/3/19at 08:50; Admin Dose 600 MG; Start 06/20/18 at 14:30 JOSE GOVEA NP Jun 21, 2018 12:00
--- NOTE | 2018-06-21 12:24 | CONS ---
Consult Date/Type/Reason Admit Date/Time Jun 08, 2018 at 23:53 Initial Consult Date Type of Consult Pulmonary Requesting Provider: ARIS ANDERSEN Date/Time of Note DATE: 06/21/18 TIME: 12:23 Subjective Patient stable no new events. Still short of breath on minimal exertion Objective Vital Signs Date Temp Pulse Resp B/P (MAP) Pulse Ox O2 O2 Flow FiO2 Time Delivery Rate 06/21/18 97.8 115 19 112/74 100 11:19 (87) 06/19/18 Room Air 15:59 06/18/18 2.0 08:00 Intake and Output 06/20/18 06/20/18 06/21/18 1515:00 23:00 07:00 IntakeIntake Total 1400 ml 900 ml BalanceBalance 1400 ml 900 ml Exam GENERAL: Older than age appearing lady VITAL SIGNS: per chart NECK: Supple. No JVD or lymphadenopathy. CARDIAC EXAM: S1, S2. No added sounds or murmurs. CHEST: Few bilateral expiratory wheezes ABDOMEN: Soft, nontender. No guarding or rebound. EXTREMITIES: No cyanosis, clubbing or edema. NEUROLOGIC: Generalized weakness. No focal deficits. Vent Setting Fraction of Inspired Oxygen pe: 21 Results/Medications Result Diagram: 06/20/18 0536 06/20/18 0536 Results 24 hrs Laboratory Tests Test 06/20/18 16:56 06/20/18 20:22 06/21/18 07:29 Bedside Glucose 199 159 94 Medications Current Medications Ondansetron HCl (Zofran Inj) 4 mg Q6H PRN IV NAUSEA AND/OR VOMITING; Start 06/09/18 at 00:30 Ipratropium [place] (Atrovent 0.02% (Neb)) 0.5 mg Q2H RESP THERAPY PRN NEB SHORTNESS OF BREATH Last administered on 06/14/18at 21:38; Admin Dose 0.5 MG; Start 06/09/18 at 00:30 Acetaminophen (Tylenol Liquid) 650 mg Q6H PRN PO PAIN LEVEL 1-3 OR FEVER Last administered on 06/18/18at 05:57; Admin Dose 650 MG; Start 06/09/18 at 00:30 Docusate Sodium (Colace) 100 mg Q12H PRN PO CONSTIPATION; Start 06/09/18 at 00:30 Bisacodyl (Dulcolax) 5 mg DAILY PRN PO CONSTIPATION; Start 06/09/18 at 00:30 Pantoprazole (Protonix Tab) 40 mg DAILY@06 PO Last administered on 06/21/18 05:25; Admin Dose 40 MG; Start 06/09/18 at 06:00 Diagnostic Test (Pha) (Accu-Chek) 1 ea 02 XX Last administered on 06/17/18at 02:00; Admin Dose 1 EA; Start 06/10/18 at 02:00 Insulin Aspart (Novolog Insulin Pen) NOVOLOG *MILD* ALGORITHM WITH MEALS BEDTIME SC Last administered on 06/20/18 17:05; Admin Dose 2 UNIT; Start 06/09/18 at 18:00 Miscellaneous Information 1 ea NOTE XX ; Start 06/09/18 at 14:30 Glucose (Glutose) 15 gm Q15M PRN PO DECREASED GLUCOSE; Start 06/09/18 at 14:30 Glucose (Glutose) 22.5 gm Q15M PRN PO DECREASED GLUCOSE; Start 06/09/18 at 14:30 Dextrose (D50w Syringe) 25 ml Q15M PRN IV DECREASED GLUCOSE Last administered on 06/15/18at 20:53; Admin Dose 25 ML; Start 06/09/18 at 14:30 Dextrose (D50w Syringe) 50 ml Q15M PRN IV DECREASED GLUCOSE; Start 06/09/18 at 14:30 Glucagon (Glucagen) 1 mg Q15M PRN IM DECREASED GLUCOSE; Start 06/09/18 at 14:30 Glucose (Glutose) 15 gm Q15M PRN BUCCAL DECREASED GLUCOSE; Start 06/09/18 at 14:30 Ferrous Sulfate (Ferrous Sulfate (Ec)) 325 mg DAILY PO Last administered on 06/21/18 08:50; Admin Dose 325 MG; Start 06/13/18 at 10:30; Stop 08/12/18 at 10:29 Glimepiride (Amaryl) 4 mg AC BREAKFAST DINNER PO Last administered on 06/21/18 08:50; Admin Dose 4 MG; Start 06/13/18 at 17:30 Levalbuterol (Xopenex Neb) 1.25 mg Q6H RESP THERAPY PRN HHN sob/wheezing Last administered on 06/14/18at 21:38; Admin Dose 1.25 MG; Start 06/14/18 at 09:00 Guaifenesin/ Dextromethorphan (Mucinex Dm) 1 tab BID PO Last administered on 06/21/18 08:50; Admin Dose 1 TAB; Start 06/14/18 at 09:30 Metformin HCl (Glucophage) 1,000 mg BID WITH MEALS PO Last administered on 06/21/18 08:49; Admin Dose 1,000 MG; Start 06/16/18 at 18:00 Ascorbic Acid (Vitamin C) 500 mg DAILY PO Last administered on 06/21/18 08:50; Admin Dose 500 MG; Start 06/17/18 at 09:00; Stop 08/16/18 at 08:59 Insulin Human NPH (Humulin N) 12 unit DAILY@20 SC Last administered on 06/20/18 20:34; Admin Dose 12 UNIT; Start 06/17/18 at 20:00 Guaifenesin/ Codeine Phosphate (Robitussin Ac Liquid Cup) 5 ml Q4H PRN PO cough Last administered on 06/18/18 20:25; Admin Dose 5 ML; Start 06/18/18 at 12:00 Linezolid (Zyvox) 600 mg BID PO Last administered on 06/20/18 20:23; Admin Dose 600 MG; Start 06/18/18 at 21:00 Zolpidem Tartrate (Ambien) 5 mg HS MAY REPEAT X 1 PRN PO INSOMNIA Last administered on 06/20/18 20:25; Admin Dose 5 MG; Start 06/19/18 at 16:30 Fluconazole (Diflucan) 100 mg DAILY PO Last administered on 06/21/18 08:50; Admin Dose 100 MG; Start 06/21/18 at 09:00 Rifampin (Rifampin) 600 mg DAILY PO Last administered on 06/21/18 08:50; Admin Dose 600 MG; Start 06/20/18 at 14:30 Assessment/Plan Hospital Course (Demo Recall) Assessment 1. Homeless lady with bilateral infiltrates cavitating some areas concerning for possible Mycobacterium tuberculosis. Negative AFB x2 QuantiFERON gold pending Plan 1. Continue current antibiotics with improved leukocytosis, repeat CT chest 2. Await TB rule out and coccidiomycosis serology 3. Low threshold for bronchoscopy if no improvement in infiltrates ALICIA HAZEL MD, [facility] Jun 21, 2018 12:24
--- NOTE | 2018-06-21 13:52 | CONS ---
Assessment/Plan Assessment/Plan Problems: (1) Diabetes mellitus type 2 in nonobese Status: Chronic Comment: Patient's sugars are doing well under a stable environment with controlled diet controlled access to medications. Continue current therapeutic Consultation Date/Type/Reason Admit Date/Time Jun 08, 2018 at 23:53 Initial Consult Date June 09, 2018 Type of Consult Endocrinology Reason for Consultation Diabetes mellitus type 2 out of control,: MRSA bacteremia; necrotizing pneumonia with cavity formation Requesting Provider: ARIS ANDERSEN Date/Time of Note DATE: 06/21/18 TIME: 13:51 24 HR Interval Summary Free Text/Dictation Patient reports she is stable and is not having hypoglycemia Exam/Review of Systems Exam Vitals Vital Signs Date Temp Pulse Resp B/P (MAP) Pulse Ox O2 O2 Flow FiO2 Time Delivery Rate 06/21/18 107 12:00 06/21/18 97.8 19 112/74 100 11:19 (87) 06/19/18 Room Air 15:59 06/18/18 2.0 08:00 Intake and Output 06/20/18 06/20/18 06/21/18 1515:00 23:00 07:00 IntakeIntake Total 1400 ml 900 ml BalanceBalance 1400 ml 900 ml Exam No change in examination Results Result Diagram: 06/20/18 0536 06/20/18 0536 Results 24hrs Laboratory Tests Test 06/20/18 16:56 06/20/18 20:22 06/21/18 07:29 06/21/18 12:28 Bedside Glucose 199 159 94 82 Medications Medication Current Medications Ondansetron HCl (Zofran Inj) 4 mg Q6H PRN IV NAUSEA AND/OR VOMITING; Start 06/09/18 at 00:30 Ipratropium [place] (Atrovent 0.02% (Neb)) 0.5 mg Q2H RESP THERAPY PRN NEB SHORTNESS OF BREATH Last administered on 06/14/18at 21:38; Admin Dose 0.5 MG; Start 06/09/18 at 00:30 Acetaminophen (Tylenol Liquid) 650 mg Q6H PRN PO PAIN LEVEL 1-3 OR FEVER Last administered on 06/18/18at 05:57; Admin Dose 650 MG; Start 06/09/18 at 00:30 Docusate Sodium (Colace) 100 mg Q12H PRN PO CONSTIPATION; Start 06/09/18 at 00:30 Bisacodyl (Dulcolax) 5 mg DAILY PRN PO CONSTIPATION; Start 06/09/18 at 00:30 Pantoprazole (Protonix Tab) 40 mg DAILY@06 PO Last administered on 06/21/18at 05:25; Admin Dose 40 MG; Start 06/09/18 at 06:00 Diagnostic Test (Pha) (Accu-Chek) 1 ea 02 XX Last administered on 06/17/18at 02:00; Admin Dose 1 EA; Start 06/10/18 at 02:00 Insulin Aspart (Novolog Insulin Pen) NOVOLOG *MILD* ALGORITHM WITH MEALS BEDTIME SC Last administered on 06/20/18 17:05; Admin Dose 2 UNIT; Start 06/09/18 at 18:00 Miscellaneous Information 1 ea NOTE XX ; Start 06/09/18 at 14:30 Glucose (Glutose) 15 gm Q15M PRN PO DECREASED GLUCOSE; Start 06/09/18 at 14:30 Glucose (Glutose) 22.5 gm Q15M PRN PO DECREASED GLUCOSE; Start 06/09/18 at 14:30 Dextrose (D50w Syringe) 25 ml Q15M PRN IV DECREASED GLUCOSE Last administered on 06/15/18at 20:53; Admin Dose 25 ML; Start 06/09/18 at 14:30 Dextrose (D50w Syringe) 50 ml Q15M PRN IV DECREASED GLUCOSE; Start 06/09/18 at 14:30 Glucagon (Glucagen) 1 mg Q15M PRN IM DECREASED GLUCOSE; Start 06/09/18 at 14:30 Glucose (Glutose) 15 gm Q15M PRN BUCCAL DECREASED GLUCOSE; Start 06/09/18 at 14:30 Ferrous Sulfate (Ferrous Sulfate (Ec)) 325 mg DAILY PO Last administered on 06/21/18 08:50; Admin Dose 325 MG; Start 06/13/18 at 10:30; Stop 08/12/18 at 10:29 Glimepiride (Amaryl) 4 mg AC BREAKFAST DINNER PO Last administered on 06/21/18at 08:50; Admin Dose 4 MG; Start 06/13/18 at 17:30 Levalbuterol (Xopenex Neb) 1.25 mg Q6H RESP THERAPY PRN HHN sob/wheezing Last administered on 06/14/18at 21:38; Admin Dose 1.25 MG; Start 06/14/18 at 09:00 Guaifenesin/ Dextromethorphan (Mucinex Dm) 1 tab BID PO Last administered on 06/21/18 08:50; Admin Dose 1 TAB; Start 06/14/18 at 09:30 Metformin HCl (Glucophage) 1,000 mg BID WITH MEALS PO Last administered on 06/21/18 08:49; Admin Dose 1,000 MG; Start 06/16/18 at 18:00 Ascorbic Acid (Vitamin C) 500 mg DAILY PO Last administered on 06/21/18 08:50; Admin Dose 500 MG; Start 06/17/18 at 09:00; Stop 08/16/18 at 08:59 Insulin Human NPH (Humulin N) 12 unit DAILY@20 SC Last administered on 06/20/18 20:34; Admin Dose 12 UNIT; Start 06/17/18 at 20:00 Guaifenesin/ Codeine Phosphate (Robitussin Ac Liquid Cup) 5 ml Q4H PRN PO cough Last administered on 06/18/18 20:25; Admin Dose 5 ML; Start 06/18/18 at 12:00 Linezolid (Zyvox) 600 mg BID PO Last administered on 06/20/18 20:23; Admin Dose 600 MG; Start 06/18/18 at 21:00 Zolpidem Tartrate (Ambien) 5 mg HS MAY REPEAT X 1 PRN PO INSOMNIA Last administered on 06/20/18 20:25; Admin Dose 5 MG; Start 06/19/18 at 16:30 Fluconazole (Diflucan) 100 mg DAILY PO Last administered on 06/21/18 08:50; Admin Dose 100 MG; Start 06/21/18 at 09:00 Rifampin (Rifampin) 600 mg DAILY PO Last administered on 06/21/18 08:50; Admin Dose 600 MG; Start 06/20/18 at 14:30 STEVE AGGARWAL MD Jun 21, 2018 13:52
[2018-06-21] MEDS: ZYVOX 600 MG TAB PO SCH ×2 (17:07→20:54)
[2018-06-21] MEDS: NPH, HUMAN INSULIN ISOPHANE 3ML VIAL SC SCH (20:57)
[2018-06-21] MEDS: ZOLPIDEM 5 MG TAB PO PRN (21:43)
[2018-06-22] VITALS (11 sets, daily range): BP systolic 103–132; BP diastolic 61–81; PULSE 97–130; RESP 17–18
[2018-06-22] MEDS: ACCU-CHEK XX SCH (01:55)
[2018-06-22] MEDS: PANTOPRAZOLE (EC) 40 MG TAB PO SCH (05:57)
[2018-06-22] MEDS: INSULIN ASPART [NOVOLOG] 3 ML PEN SC SCH ×4 (08:00→20:32)
--- NOTE | 2018-06-22 09:06 | PN ---
Date/Time of Note Date/Time of Note DATE: 06/22/18 TIME: 09:06 Assessment/Plan VTE Prophylaxis Risk score (from Nsg)>0 risk: 1 SCD applied (from Ns): No SCD contraindicated: low risk/ambulating Pharmacological prophylaxis: NA/contraindicated Pharm contraindication: low risk/ambulating Lines/Catheters IV Catheter Type (from [facility]): Saline Lock Urinary Cath still in place: No Assessment/Plan Assessment/Plan 1. Sepsis with MRSA bacteremia and PNA- improving - CT scan shows improvement in bilateral infiltrates - ID on board and appreciate recommendations. Continue on current antibiotics 2. Tachycardia - Asymptomatic - Secondary to above bacteremia and pneumonia 3. Poorly controlled diabetes - A1c noted - better controlled - Endocrinology on board and appreciate recommendations. Continue on current insulin and glimepiride. 4. Extensive bilateral multilobar pneumonia - Pulm on board and continue current treatment. Awaiting TB QuantiFERON and cocci studies. If AFB positive will need a bronch. Anticipate discharge on Bactrim and Rifampin for 4 week course - Repeat CT scan performed this am showing "Multifocal bilateral areas of pneumonia are again present and have diminished in overall size however there is interval development of multiple foci of lucencies within the areas of consolidation suggestive for bronchiectasis or developing small cavitary lesions." - Sputum cultures growing MRSA - ID recommendations appreciated 5. Homelessness - SW on board - patient states she plans to go to rehab following discharge 6. History of meth abuse - Patient states last use was 2 weeks prior to admission. Counseled on cessation. 7. Tobacco use - Cessation advised. 8. Iron Deficient anemia. - Continue oral iron. - H&H stable. 9. Mild asthma. - Currently stable. At this time, this is controlled with as needed SELMA 10. Disposition - Awaiting QuantiFERON studies and cocci serology. If negative, will d/c on Rifampin and Bactrim for 4 weeks Result Diagram: 06/22/18 0530 06/22/18 0530 Results 24hrs Laboratory Tests Test 06/21/18 12:28 06/21/18 16:59 06/21/18 20:08 06/22/18 01:44 Bedside Glucose 82 209 173 181 Test 06/22/18 05:30 06/22/18 08:05 White Blood Count 5.9 # Red Blood Count 4.32 Hemoglobin 11.9 L Hematocrit 38.3 Mean Corpuscular Volume 88.7 Mean Corpuscular 27.5 L Hemoglobin Mean Corpuscular 31.1 L Hemoglobin Concent Red Cell Distribution 16.3 H Width Platelet Count 874 H Mean Platelet Volume 9.5 Immature Granulocytes % 1.000 H Neutrophils % 45.9 Lymphocytes % 45.0 Monocytes % 5.7 Eosinophils % 1.7 Basophils % 0.7 Nucleated Red Blood 0.0 Cells % Immature Granulocytes # 0.060 H Neutrophils # 2.7 Lymphocytes # 2.7 Monocytes # 0.3 Eosinophils # 0.1 Basophils # 0.0 Nucleated Red Blood 0.0 Cells # Sodium Level 138 Potassium Level 4.1 Chloride Level 97 Carbon Dioxide Level 28 Anion Gap 13 Blood Urea Nitrogen 15 Creatinine 0.39 L Glucose Level 117 # Calcium Level 9.6 Phosphorus Level 4.5 Magnesium Level 1.8 Albumin 3.7 Bedside Glucose 109 Subjective 24 Hr Interval Summary Free Text/Dictation Patient complaining of left chest wall discomfort radiating across diaphragm with coughing. States ambulating a little better in terms of shortness of breath. No acute overnight events. Exam/Review of Systems Exam Vitals Vital Signs Date Temp Pulse Resp B/P (MAP) Pulse Ox O2 O2 Flow FiO2 Time Delivery Rate 06/22/18 98.3 110 18 104/61 95 08:28 (75) 06/19/18 Room Air 15:59 06/18/18 2.0 08:00 Intake and Output 06/21/18 06/21/18 06/22/18 1515:00 23:00 07:00 IntakeIntake Total 800 ml BalanceBalance 800 ml Exam General: Patient is laying in bed and answers questions appropriately. no acute distress Neck: Supple Respiratory: diminished bilaterally. no wheezing appreciated Cardiovascular: regular rhythm, tachycardia, no obvious murmurs Gastrointestinal: non-tender to palpation, bowel sounds heard. Neurological: Moves all extremities spontaneously Skin: No new skin lesions Results Results 24hrs Laboratory Tests Test 06/21/18 12:28 06/21/18 16:59 06/21/18 20:08 06/22/18 01:44 Bedside Glucose 82 209 173 181 Test 06/22/18 05:30 06/22/18 08:05 White Blood Count 5.9 # Red Blood Count 4.32 Hemoglobin 11.9 L Hematocrit 38.3 Mean Corpuscular Volume 88.7 Mean Corpuscular 27.5 L Hemoglobin Mean Corpuscular 31.1 L Hemoglobin Concent Red Cell Distribution 16.3 H Width Platelet Count 874 H Mean Platelet Volume 9.5 Immature Granulocytes % 1.000 H Neutrophils % 45.9 Lymphocytes % 45.0 Monocytes % 5.7 Eosinophils % 1.7 Basophils % 0.7 Nucleated Red Blood 0.0 Cells % Immature Granulocytes # 0.060 H Neutrophils # 2.7 Lymphocytes # 2.7 Monocytes # 0.3 Eosinophils # 0.1 Basophils # 0.0 Nucleated Red Blood 0.0 Cells # Sodium Level 138 Potassium Level 4.1 Chloride Level 97 Carbon Dioxide Level 28 Anion Gap 13 Blood Urea Nitrogen 15 Creatinine 0.39 L Glucose Level 117 # Calcium Level 9.6 Phosphorus Level 4.5 Magnesium Level 1.8 Albumin 3.7 Bedside Glucose 109 Medications Medication Current Medications Ondansetron HCl (Zofran Inj) 4 mg Q6H PRN IV NAUSEA AND/OR VOMITING; Start 06/09/18 at 00:30 Ipratropium [place] (Atrovent 0.02% (Neb)) 0.5 mg Q2H RESP THERAPY PRN NEB SHORTNESS OF BREATH Last administered on 06/14/18 21:38; Admin Dose 0.5 MG; Start 06/09/18 at 00:30 Acetaminophen (Tylenol Liquid) 650 mg Q6H PRN PO PAIN LEVEL 1-3 OR FEVER Last administered on 06/18/18 05:57; Admin Dose 650 MG; Start 06/09/18 at 00:30 Docusate Sodium (Colace) 100 mg Q12H PRN PO CONSTIPATION; Start 06/09/18 at 00:30 Bisacodyl (Dulcolax) 5 mg DAILY PRN PO CONSTIPATION; Start 06/09/18 at 00:30 Pantoprazole (Protonix Tab) 40 mg DAILY@06 PO Last administered on 06/22/18 05:57; Admin Dose 40 MG; Start 06/09/18 at 06:00 Diagnostic Test (Pha) (Accu-Chek) 1 ea 02 XX Last administered on 06/22/18 01:55; Admin Dose 1 EA; Start 06/10/18 at 02:00 Insulin Aspart (Novolog Insulin Pen) NOVOLOG *MILD* ALGORITHM WITH MEALS BEDTIME SC Last administered on 06/21/18 17:18; Admin Dose 2 UNIT; Start 05/20 05/09 at 18:00 Miscellaneous Information 1 ea NOTE XX ; Start 06/09/18 at 14:30 Glucose (Glutose) 15 gm Q15M PRN PO DECREASED GLUCOSE; Start 06/09/18 at 14:30 Glucose (Glutose) 22.5 gm Q15M PRN PO DECREASED GLUCOSE; Start 06/09/18 at 14:30 Dextrose (D50w Syringe) 25 ml Q15M PRN IV DECREASED GLUCOSE Last administered on 06/15/18at 20:53; Admin Dose 25 ML; Start 06/09/18 at 14:30 Dextrose (D50w Syringe) 50 ml Q15M PRN IV DECREASED GLUCOSE; Start 06/09/18 at 14:30 Glucagon (Glucagen) 1 mg Q15M PRN IM DECREASED GLUCOSE; Start 06/09/18 at 14:30 Glucose (Glutose) 15 gm Q15M PRN BUCCAL DECREASED GLUCOSE; Start 06/09/18 at 14:30 Ferrous Sulfate (Ferrous Sulfate (Ec)) 325 mg DAILY PO Last administered on 06/21/18 08:50; Admin Dose 325 MG; Start 06/13/18 at 10:30; Stop 08/12/18 at 10:29 Glimepiride (Amaryl) 4 mg AC BREAKFAST DINNER PO Last administered on 06/21/18 17:01; Admin Dose 4 MG; Start 06/13/18 at 17:30 Levalbuterol (Xopenex Neb) 1.25 mg Q6H RESP THERAPY PRN HHN sob/wheezing Last administered on 06/14/18at 21:38; Admin Dose 1.25 MG; Start 06/14/18 at 09:00 Guaifenesin/ Dextromethorphan (Mucinex Dm) 1 tab BID PO Last administered on 06/21/18 20:54; Admin Dose 1 TAB; Start 06/14/18 at 09:30 Metformin HCl (Glucophage) 1,000 mg BID WITH MEALS PO Last administered on 06/21/18 17:07; Admin Dose 1,000 MG; Start 06/16/18 at 18:00 Ascorbic Acid (Vitamin C) 500 mg DAILY PO Last administered on 06/21/18 08:50; Admin Dose 500 MG; Start 06/17/18 at 09:00; Stop 08/16/18 at 08:59 Insulin Human NPH (Humulin N) 12 unit DAILY@20 SC Last administered on 06/21/18 20:57; Admin Dose 12 UNIT; Start 06/17/18 at 20:00 Guaifenesin/ Codeine Phosphate (Robitussin Ac Liquid Cup) 5 ml Q4H PRN PO cough Last administered on 06/18/18 20:25; Admin Dose 5 ML; Start 06/18/18 at 12:00 Linezolid (Zyvox) 600 mg BID PO Last administered on 06/21/18at 20:54; Admin Dose 600 MG; Start 06/18/18 at 21:00 Zolpidem Tartrate (Ambien) 5 mg HS MAY REPEAT X 1 PRN PO INSOMNIA Last administered on 06/21/18 21:43; Admin Dose 5 MG; Start 06/19/18 at 16:30 Fluconazole (Diflucan) 100 mg DAILY PO Last administered on 06/21/18 08:50; Admin Dose 100 MG; Start 06/21/18 at 09:00 Rifampin (Rifampin) 600 mg DAILY PO Last administered on 06/21/18at 08:50; Admin Dose 600 MG; Start 06/20/18 at 14:30 DAVE HAMMONDS MD Jun 22, 2018 09:06
[2018-06-22] MEDS: RIFAMPIN 300 MG CAP PO SCH (09:21)
[2018-06-22] MEDS: GLIMEPIRIDE 2 MG TAB PO SCH ×2 (09:21→17:44)
[2018-06-22] MEDS: ASCORBIC ACID 500 MG TAB PO SCH (09:21)
[2018-06-22] MEDS: FERROUS SULFATE (EC) 325 MG TAB PO SCH (09:21)
[2018-06-22] MEDS: GUAIFENESIN/DM (SR) TAB PO SCH ×2 (09:22→20:23)
[2018-06-22] MEDS: ZYVOX 600 MG TAB PO SCH ×2 (09:22→20:23)
[2018-06-22] MEDS: FLUCONAZOLE 100 MG TAB PO SCH (09:22)
[2018-06-22] MEDS: metFORMIN 500 MG TAB PO SCH ×2 (09:22→17:43)
--- NOTE | 2018-06-22 11:07 | CONS ---
Consult Date/Type/Reason Admit Date/Time Jun 08, 2018 at 23:53 Initial Consult Date Type of Consult Pulmonary Requesting Provider: ARIS ANDERSEN Date/Time of Note DATE: 06/22/18 TIME: 11:06 Subjective Slowly improving less shortness of breath. CT chest shows gradual improvement in bilateral infiltrate. Objective Vital Signs Date Temp Pulse Resp B/P (MAP) Pulse Ox O2 O2 Flow FiO2 Time Delivery Rate 06/22/18 98.3 110 18 104/61 95 08:28 (75) 06/19/18 Room Air 15:59 06/18/18 2.0 08:00 Intake and Output 06/21/18 06/21/18 06/22/18 1515:00 23:00 07:00 IntakeIntake Total 800 ml BalanceBalance 800 ml Vent Setting Fraction of Inspired Oxygen pe: 21 Results/Medications Result Diagram: 06/22/18 0530 06/22/18 0530 Results 24 hrs Laboratory Tests Test 06/21/18 12:28 06/21/18 16:59 06/21/18 20:08 06/22/18 01:44 Bedside Glucose 82 209 173 181 Test 06/22/18 05:30 06/22/18 08:05 White Blood Count 5.9 # Red Blood Count 4.32 Hemoglobin 11.9 L Hematocrit 38.3 Mean Corpuscular Volume 88.7 Mean Corpuscular 27.5 L Hemoglobin Mean Corpuscular 31.1 L Hemoglobin Concent Red Cell Distribution 16.3 H Width Platelet Count 874 H Mean Platelet Volume 9.5 Immature Granulocytes % 1.000 H Neutrophils % 45.9 Lymphocytes % 45.0 Monocytes % 5.7 Eosinophils % 1.7 Basophils % 0.7 Nucleated Red Blood 0.0 Cells % Immature Granulocytes # 0.060 H Neutrophils # 2.7 Lymphocytes # 2.7 Monocytes # 0.3 Eosinophils # 0.1 Basophils # 0.0 Nucleated Red Blood 0.0 Cells # Sodium Level 138 Potassium Level 4.1 Chloride Level 97 Carbon Dioxide Level 28 Anion Gap 13 Blood Urea Nitrogen 15 Creatinine 0.39 L Glucose Level 117 # Calcium Level 9.6 Phosphorus Level 4.5 Magnesium Level 1.8 Albumin 3.7 Bedside Glucose 109 Medications Current Medications Ondansetron HCl (Zofran Inj) 4 mg Q6H PRN IV NAUSEA AND/OR VOMITING; Start 06/09/18 at 00:30 Ipratropium [place] (Atrovent 0.02% (Neb)) 0.5 mg Q2H RESP THERAPY PRN NEB SHORTNESS OF BREATH Last administered on 06/14/18at 21:38; Admin Dose 0.5 MG; Start 06/09/18 at 00:30 Acetaminophen (Tylenol Liquid) 650 mg Q6H PRN PO PAIN LEVEL 1-3 OR FEVER Last administered on 06/18/18 05:57; Admin Dose 650 MG; Start 06/09/18 at 00:30 Docusate Sodium (Colace) 100 mg Q12H PRN PO CONSTIPATION; Start 06/09/18 at 00:30 Bisacodyl (Dulcolax) 5 mg DAILY PRN PO CONSTIPATION; Start 06/09/18 at 00:30 Pantoprazole (Protonix Tab) 40 mg DAILY@06 PO Last administered on 06/22/18 05:57; Admin Dose 40 MG; Start 06/09/18 at 06:00 Diagnostic Test (Pha) (Accu-Chek) 1 ea 02 XX Last administered on 06/22/18at 01:55; Admin Dose 1 EA; Start 06/10/18 at 02:00 Insulin Aspart (Novolog Insulin Pen) NOVOLOG *MILD* ALGORITHM WITH MEALS BEDTIME SC Last administered on 06/21/18 17:18; Admin Dose 2 UNIT; Start 06/09/18 at 18:00 Miscellaneous Information 1 ea NOTE XX ; Start 06/09/18 at 14:30 Glucose (Glutose) 15 gm Q15M PRN PO DECREASED GLUCOSE; Start 06/09/18 at 14:30 Glucose (Glutose) 22.5 gm Q15M PRN PO DECREASED GLUCOSE; Start 06/09/18 at 14:30 Dextrose (D50w Syringe) 25 ml Q15M PRN IV DECREASED GLUCOSE Last administered on 06/15/18at 20:53; Admin Dose 25 ML; Start 06/09/18 at 14:30 Dextrose (D50w Syringe) 50 ml Q15M PRN IV DECREASED GLUCOSE; Start 06/09/18 at 14:30 Glucagon (Glucagen) 1 mg Q15M PRN IM DECREASED GLUCOSE; Start 06/09/18 at 14:30 Glucose (Glutose) 15 gm Q15M PRN BUCCAL DECREASED GLUCOSE; Start 06/09/18 at 14:30 Ferrous Sulfate (Ferrous Sulfate (Ec)) 325 mg DAILY PO Last administered on 06/22/18 09:21; Admin Dose 325 MG; Start 06/13/18 at 10:30; Stop 08/12/18 at 10:29 Glimepiride (Amaryl) 4 mg AC BREAKFAST DINNER PO Last administered on 06/22/18 09:21; Admin Dose 4 MG; Start 06/13/18 at 17:30 Levalbuterol (Xopenex Neb) 1.25 mg Q6H RESP THERAPY PRN HHN sob/wheezing Last administered on 06/14/18 21:38; Admin Dose 1.25 MG; Start 06/14/18 at 09:00 Guaifenesin/ Dextromethorphan (Mucinex Dm) 1 tab BID PO Last administered on 09:22; Admin Dose 1 TAB; Start 06/14/18 at 09:30 Metformin HCl (Glucophage) 1,000 mg BID WITH MEALS PO Last administered on 06/22/18 09:22; Admin Dose 1,000 MG; Start 06/16/18 at 18:00 Ascorbic Acid (Vitamin C) 500 mg DAILY PO Last administered on 06/22/18 09:21; Admin Dose 500 MG; Start 06/17/18 at 09:00; Stop 08/16/18 at 08:59 Insulin Human NPH (Humulin N) 12 unit DAILY@20 SC Last administered on 06/21/18 20:57; Admin Dose 12 UNIT; Start 06/17/18 at 20:00 Guaifenesin/ Codeine Phosphate (Robitussin Ac Liquid Cup) 5 ml Q4H PRN PO cough Last administered on 06/18/18 20:25; Admin Dose 5 ML; Start 06/18/18 at 12:00 Linezolid (Zyvox) 600 mg BID PO Last administered on 06/22/18 09:22; Admin Dose 600 MG; Start 06/18/18 at 21:00 Fluconazole (Diflucan) 100 mg DAILY PO Last administered on 06/22/18 09:22; Admin Dose 100 MG; Start 06/21/18 at 09:00 Rifampin (Rifampin) 600 mg DAILY PO Last administered on 06/22/18 09:21; Admin Dose 600 MG; Start 06/20/18 at 14:30 Zolpidem Tartrate (Ambien) 10 mg HS PO ; Start 06/22/18 at 21:00 Assessment/Plan Hospital Course (Demo Recall) Assessment 1. Homeless lady with bilateral infiltrates cavitating some areas concerning for possible Mycobacterium tuberculosis. Negative AFB x2 QuantiFERON gold pending Plan 1. Continue current antibiotics with improved leukocytosis, repeat CT chest 2. Await TB rule out and coccidiomycosis serology 3. Consider discharge home on 1 month of antibiotics probably Augmentin if TB serology negative. If QuantiFERON gold test is positive patient will need bronchoscopy with lavage. ALICIA HAZEL MD, [facility] Jun 22, 2018 11:07
--- NOTE | 2018-06-22 13:10 | CONS ---
Assessment/Plan Assessment/Plan Hospital Course (Demo Recall) No events, looks comfortable, no fevers AFB smears negative 3 sets Microbiology: Blood culture on June 08 grew MRSA, repeat blood cultures negative, sputum culture on June 16 grew Talia albicans and MRSA. Serology for HIV negative Antimicrobials: Zyvox Rifampin Diflucan Physical examination: Well-developed middle-aged woman who is alert in no distress. Head atraumatic normocephalic sclera nonicteric. Neck is supple chest rise symmetrical breath sounds diminished bases. Heart S1-S2. Abdomen soft bowel sounds present. Extremities without cyanosis. Assessment: 1. Resolving sepsis 2. MRSA bacteremia on admission 3. Necrotizing MRSA pneumonia with areas of cavitation per CT 4. Homelessness 5. Poorly controlled diabetes 6. History of recent meth amphetamine abuse Plan: Patient remained stable, repeat blood cultures negative, no obvious veget ations per 2D echo, continue abx, pulmonary rec-s noted, anticipate dc on oral Bactrim and Rifampin for 4 more weeks, await for cocci serology Consultation Date/Type/Reason Admit Date/Time Jun 08, 2018 at 23:53 Initial Consult Date Type of Consult id Requesting Provider: ARIS ANDERSEN Date/Time of Note DATE: 06/22/18 TIME: 13:09 Exam/Review of Systems Exam Vitals Vital Signs Date Temp Pulse Resp B/P (MAP) Pulse Ox O2 O2 Flow FiO2 Time Delivery Rate 06/22/18 97 12:38 06/22/18 98.0 18 109/75 95 11:59 (86) 06/19/18 Room Air 15:59 06/18/18 2.0 08:00 Intake and Output 06/21/18 06/21/18 06/22/18 1414:59 22:59 06:59 IntakeIntake Total 800 ml BalanceBalance 800 ml Results Result Diagram: 06/22/18 0530 06/22/18 0530 Results 24hrs Laboratory Tests Test 06/21/18 16:59 06/21/18 20:08 06/22/18 01:44 06/22/18 05:30 Bedside Glucose 209 173 181 White Blood Count 5.9 # Red Blood Count 4.32 Hemoglobin 11.9 L Hematocrit 38.3 Mean Corpuscular Volume 88.7 Mean Corpuscular 27.5 L Hemoglobin Mean Corpuscular 31.1 L Hemoglobin Concent Red Cell Distribution 16.3 H Width Platelet Count 874 H Mean Platelet Volume 9.5 Immature Granulocytes % 1.000 H Neutrophils % 45.9 Lymphocytes % 45.0 Monocytes % 5.7 Eosinophils % 1.7 Basophils % 0.7 Nucleated Red Blood 0.0 Cells % Immature Granulocytes # 0.060 H Neutrophils # 2.7 Lymphocytes # 2.7 Monocytes # 0.3 Eosinophils # 0.1 Basophils # 0.0 Nucleated Red Blood 0.0 Cells # Sodium Level 138 Potassium Level 4.1 Chloride Level 97 Carbon Dioxide Level 28 Anion Gap 13 Blood Urea Nitrogen 15 Creatinine 0.39 L Glucose Level 117 # Calcium Level 9.6 Phosphorus Level 4.5 Magnesium Level 1.8 Albumin 3.7 Test 06/22/18 08:05 06/22/18 12:12 Bedside Glucose 109 141 Medications Medication Current Medications Ondansetron HCl (Zofran Inj) 4 mg Q6H PRN IV NAUSEA AND/OR VOMITING; Start 06/09/18 at 00:30 Ipratropium [place] (Atrovent 0.02% (Neb)) 0.5 mg Q2H RESP THERAPY PRN NEB SHORTNESS OF BREATH Last administered on 06/14/18at 21:38; Admin Dose 0.5 MG; Start 06/09/18 at 00:30 Acetaminophen (Tylenol Liquid) 650 mg Q6H PRN PO PAIN LEVEL 1-3 OR FEVER Last administered on 06/18/18 05:57; Admin Dose 650 MG; Start 06/09/18 at 00:30 Docusate Sodium (Colace) 100 mg Q12H PRN PO CONSTIPATION; Start 06/09/18 at 00:30 Bisacodyl (Dulcolax) 5 mg DAILY PRN PO CONSTIPATION; Start 06/09/18 at 00:30 Pantoprazole (Protonix Tab) 40 mg DAILY@06 PO Last administered on 06/22/18 05:57; Admin Dose 40 MG; Start 06/09/18 at 06:00 Diagnostic Test (Pha) (Accu-Chek) 1 ea 02 XX Last administered on 06/22/18 01:55; Admin Dose 1 EA; Start 06/10/18 at 02:00 Insulin Aspart (Novolog Insulin Pen) NOVOLOG *MILD* ALGORITHM WITH MEALS BEDTIME SC Last administered on 06/22/18 12:22; Admin Dose 1 UNIT; Start 06/09/18 at 18:00 Miscellaneous Information 1 ea NOTE XX ; Start 06/09/18 at 14:30 Glucose (Glutose) 15 gm Q15M PRN PO DECREASED GLUCOSE; Start 06/09/18 at 14:30 Glucose (Glutose) 22.5 gm Q15M PRN PO DECREASED GLUCOSE; Start 06/09/18 at 14:30 Dextrose (D50w Syringe) 25 ml Q15M PRN IV DECREASED GLUCOSE Last administered on 06/15/18at 20:53; Admin Dose 25 ML; Start 06/09/18 at 14:30 Dextrose (D50w Syringe) 50 ml Q15M PRN IV DECREASED GLUCOSE; Start 06/09/18 at 14:30 Glucagon (Glucagen) 1 mg Q15M PRN IM DECREASED GLUCOSE; Start 06/09/18 at 14:30 Glucose (Glutose) 15 gm Q15M PRN BUCCAL DECREASED GLUCOSE; Start 06/09/18 at 14:30 Ferrous Sulfate (Ferrous Sulfate (Ec)) 325 mg DAILY PO Last administered on 06/22/18 09:21; Admin Dose 325 MG; Start 06/13/18 at 10:30; Stop 08/12/18 at 10:29 Glimepiride (Amaryl) 4 mg AC BREAKFAST DINNER PO Last administered on 06/22/18 09:21; Admin Dose 4 MG; Start 06/13/18 at 17:30 Levalbuterol (Xopenex Neb) 1.25 mg Q6H RESP THERAPY PRN HHN sob/wheezing Last administered on 06/14/18at 21:38; Admin Dose 1.25 MG; Start 06/14/18 at 09:00 Guaifenesin/ Dextromethorphan (Mucinex Dm) 1 tab BID PO Last administered on 06/22/18 09:22; Admin Dose 1 TAB; Start 06/14/18 at 09:30 Metformin HCl (Glucophage) 1,000 mg BID WITH MEALS PO Last administered on 06/22/18 09:22; Admin Dose 1,000 MG; Start 06/16/18 at 18:00 Ascorbic Acid (Vitamin C) 500 mg DAILY PO Last administered on 06/22/18 09:21; Admin Dose 500 MG; Start 06/17/18 at 09:00; Stop 08/16/18 at 08:59 Insulin Human NPH (Humulin N) 12 unit DAILY@20 SC Last administered on 06/21/18at 20:57; Admin Dose 12 UNIT; Start 06/17/18 at 20:00 Guaifenesin/ Codeine Phosphate (Robitussin Ac Liquid Cup) 5 ml Q4H PRN PO cough Last administered on 06/18/18at 20:25; Admin Dose 5 ML; Start 06/18/18 at 12:00 Linezolid (Zyvox) 600 mg BID PO Last administered on 06/22/18at 09:22; Admin Dose 600 MG; Start 06/18/18 at 21:00 Fluconazole (Diflucan) 100 mg DAILY PO Last administered on 06/22/18at 09:22; Admin Dose 100 MG; Start 06/21/18 at 09:00 Rifampin (Rifampin) 600 mg DAILY PO Last administered on 06/22/18at 09:21; Admin Dose 600 MG; Start 06/20/18 at 14:30 Zolpidem Tartrate (Ambien) 10 mg HS PO ; Start 06/22/18 at 21:00 JOSE GOVEA NP Jun 22, 2018 13:10
--- NOTE | 2018-06-22 13:11 | CONS ---
Assessment/Plan Assessment/Plan Problems: (1) Diabetes mellitus type 2 in nonobese Status: Chronic Comment: Acceptable control in a controlled environment with a controlled diet. Continue current therapeutic regimen. Please note the patient is having nausea and vomiting while on Zyvox. This is a known complication of that medication. Consultation Date/Type/Reason Admit Date/Time Jun 08, 2018 at 23:53 Initial Consult Date June 09, 2018 Type of Consult Endocrinology Reason for Consultation Beatties mellitus type II out of control; severe pneumonia with MRSA bacteremia; Requesting Provider: ARIS ANDERSEN Date/Time of Note DATE: 06/22/18 TIME: 13:10 24 HR Interval Summary Free Text/Dictation Patient complains of nausea. (On Zyvox) Constitutional: no complaints (No fevers chills or sweats) Detailed Summary Endocrine: no complaints Exam/Review of Systems Exam Vitals Vital Signs Date Temp Pulse Resp B/P (MAP) Pulse Ox O2 O2 Flow FiO2 Time Delivery Rate 06/22/18 97 12:38 06/22/18 98.0 18 109/75 95 11:59 (86) 06/19/18 Room Air 15:59 06/18/18 2.0 08:00 Intake and Output 06/21/18 06/21/18 06/22/18 1515:00 23:00 07:00 IntakeIntake Total 800 ml BalanceBalance 800 ml Exam No change in examination Results Result Diagram: 06/22/18 0530 06/22/18 0530 Results 24hrs Laboratory Tests Test 06/21/18 16:59 06/21/18 20:08 06/22/18 01:44 06/22/18 05:30 Bedside Glucose 209 173 181 White Blood Count 5.9 # Red Blood Count 4.32 Hemoglobin 11.9 L Hematocrit 38.3 Mean Corpuscular Volume 88.7 Mean Corpuscular 27.5 L Hemoglobin Mean Corpuscular 31.1 L Hemoglobin Concent Red Cell Distribution 16.3 H Width Platelet Count 874 H Mean Platelet Volume 9.5 Immature Granulocytes % 1.000 H Neutrophils % 45.9 Lymphocytes % 45.0 Monocytes % 5.7 Eosinophils % 1.7 Basophils % 0.7 Nucleated Red Blood 0.0 Cells % Immature Granulocytes # 0.060 H Neutrophils # 2.7 Lymphocytes # 2.7 Monocytes # 0.3 Eosinophils # 0.1 Basophils # 0.0 Nucleated Red Blood 0.0 Cells # Sodium Level 138 Potassium Level 4.1 Chloride Level 97 Carbon Dioxide Level 28 Anion Gap 13 Blood Urea Nitrogen 15 Creatinine 0.39 L Glucose Level 117 # Calcium Level 9.6 Phosphorus Level 4.5 Magnesium Level 1.8 Albumin 3.7 Test 06/22/18 08:05 06/22/18 12:12 Bedside Glucose 109 141 Medications Medication Current Medications Ondansetron HCl (Zofran Inj) 4 mg Q6H PRN IV NAUSEA AND/OR VOMITING; Start 06/09/18 at 00:30 Ipratropium [place] (Atrovent 0.02% (Neb)) 0.5 mg Q2H RESP THERAPY PRN NEB SHORTNESS OF BREATH Last administered on 06/14/18at 21:38; Admin Dose 0.5 MG; Start 06/09/18 at 00:30 Acetaminophen (Tylenol Liquid) 650 mg Q6H PRN PO PAIN LEVEL 1-3 OR FEVER Last administered on 06/18/18at 05:57; Admin Dose 650 MG; Start 06/09/18 at 00:30 Docusate Sodium (Colace) 100 mg Q12H PRN PO CONSTIPATION; Start 06/09/18 at 00:30 Bisacodyl (Dulcolax) 5 mg DAILY PRN PO CONSTIPATION; Start 06/09/18 at 00:30 Pantoprazole (Protonix Tab) 40 mg DAILY@06 PO Last administered on 06/22/18 05:57; Admin Dose 40 MG; Start 06/09/18 at 06:00 Diagnostic Test (Pha) (Accu-Chek) 1 ea 02 XX Last administered on 06/22/18at 01:55; Admin Dose 1 EA; Start 06/10/18 at 02:00 Insulin Aspart (Novolog Insulin Pen) NOVOLOG *MILD* ALGORITHM WITH MEALS BEDTIME SC Last administered on 06/22/18 12:22; Admin Dose 1 UNIT; Start 06/09/18 at 18:00 Miscellaneous Information 1 ea NOTE XX ; Start 06/09/18 at 14:30 Glucose (Glutose) 15 gm Q15M PRN PO DECREASED GLUCOSE; Start 06/09/18 at 14:30 Glucose (Glutose) 22.5 gm Q15M PRN PO DECREASED GLUCOSE; Start 06/09/18 at 14:30 Dextrose (D50w Syringe) 25 ml Q15M PRN IV DECREASED GLUCOSE Last administered on 06/15/18 20:53; Admin Dose 25 ML; Start 06/09/18 at 14:30 Dextrose (D50w Syringe) 50 ml Q15M PRN IV DECREASED GLUCOSE; Start 06/09/18 at 14:30 Glucagon (Glucagen) 1 mg Q15M PRN IM DECREASED GLUCOSE; Start 06/09/18 at 14:30 Glucose (Glutose) 15 gm Q15M PRN BUCCAL DECREASED GLUCOSE; Start 06/09/18 at 14:30 Ferrous Sulfate (Ferrous Sulfate (Ec)) 325 mg DAILY PO Last administered on 06/22/18 09:21; Admin Dose 325 MG; Start 06/13/18 at 10:30; Stop 08/12/18 at 10:29 Glimepiride (Amaryl) 4 mg AC BREAKFAST DINNER PO Last administered on 06/22/18 09:21; Admin Dose 4 MG; Start 06/13/18 at 17:30 Levalbuterol (Xopenex Neb) 1.25 mg Q6H RESP THERAPY PRN HHN sob/wheezing Last administered on 06/14/18 21:38; Admin Dose 1.25 MG; Start 06/14/18 at 09:00 Guaifenesin/ Dextromethorphan (Mucinex Dm) 1 tab BID PO Last administered on 06/22/18 09:22; Admin Dose 1 TAB; Start 06/14/18 at 09:30 Metformin HCl (Glucophage) 1,000 mg BID WITH MEALS PO Last administered on 06/22/18 09:22; Admin Dose 1,000 MG; Start 06/16/18 at 18:00 Ascorbic Acid (Vitamin C) 500 mg DAILY PO Last administered on 06/22/18 09:21; Admin Dose 500 MG; Start 06/17/18 at 09:00; Stop 08/16/18 at 08:59 Insulin Human NPH (Humulin N) 12 unit DAILY@20 SC Last administered on 06/21/18 20:57; Admin Dose 12 UNIT; Start 06/17/18 at 20:00 Guaifenesin/ Codeine Phosphate (Robitussin Ac Liquid Cup) 5 ml Q4H PRN PO cough Last administered on 06/18/18 20:25; Admin Dose 5 ML; Start 06/18/18 at 12:00 Linezolid (Zyvox) 600 mg BID PO Last administered on 06/22/18 09:22; Admin Dose 600 MG; Start 06/18/18 at 21:00 Fluconazole (Diflucan) 100 mg DAILY PO Last administered on 06/22/18 09:22; Admin Dose 100 MG; Start 06/21/18 at 09:00 Rifampin (Rifampin) 600 mg DAILY PO Last administered on 06/22/18at 09:21; Admin Dose 600 MG; Start 06/20/18 at 14:30 Zolpidem Tartrate (Ambien) 10 mg HS PO ; Start 06/22/18 at 21:00 STEVE AGGARWAL MD Jun 22, 2018 13:11
[2018-06-22] MEDS: ONDANSETRON 4 MG INJ IV PRN (13:23)
[2018-06-22] MEDS: ZOLPIDEM 5 MG TAB PO SCH (20:23)
[2018-06-22] MEDS: NPH, HUMAN INSULIN ISOPHANE 3ML VIAL SC SCH (20:31)
[2018-06-23] VITALS (11 sets, daily range): BP systolic 108–117; BP diastolic 73–82; PULSE 113–134; RESP 18–21
[2018-06-23] MEDS: ACCU-CHEK XX SCH (02:00)
[2018-06-23] MEDS: PANTOPRAZOLE (EC) 40 MG TAB PO SCH (06:12)
[2018-06-23] MEDS: GLIMEPIRIDE 2 MG TAB PO SCH ×2 (07:41→17:47)
[2018-06-23] MEDS: INSULIN ASPART [NOVOLOG] 3 ML PEN SC SCH ×4 (08:00→21:00)
[2018-06-23] MEDS: metFORMIN 500 MG TAB PO SCH ×2 (08:07→17:48)
[2018-06-23] MEDS ORDERED: SOD CHLORIDE 0.9% 500 ML IV ONE (08:30)
[2018-06-23] MEDS: FLUCONAZOLE 100 MG TAB PO SCH (08:56)
[2018-06-23] MEDS: FERROUS SULFATE (EC) 325 MG TAB PO SCH (08:56)
[2018-06-23] MEDS: GUAIFENESIN/DM (SR) TAB PO SCH ×2 (08:56→20:45)
[2018-06-23] MEDS: RIFAMPIN 300 MG CAP PO SCH (08:56)
[2018-06-23] MEDS: ZYVOX 600 MG TAB PO SCH ×2 (08:56→20:45)
[2018-06-23] MEDS: ASCORBIC ACID 500 MG TAB PO SCH (08:56)
--- NOTE | 2018-06-23 09:13 | PN ---
Date/Time of Note Date/Time of Note DATE: 06/23/18 TIME: 09:08 Assessment/Plan VTE Prophylaxis Risk score (from Nsg)>0 risk: 1 SCD applied (from Nsg): No SCD contraindicated: low risk/ambulating Pharmacological prophylaxis: NA/contraindicated Pharm contraindication: low risk/ambulating Lines/Catheters IV Catheter Type (from Nrs): [place] Urinary Cath still in place: No Assessment/Plan Assessment/Plan 1. Sepsis with MRSA bacteremia and PNA- improving - CT scan shows improvement in bilateral infiltrates - ID on board and appreciate recommendations. Continue on current antibiotics 2. Tachycardia - most likely secondary to hypovolemia in setting of nausea with vomiting - will give NSS bolus and monitor for improvement 3. Poorly controlled diabetes- improving - A1c noted - Admits to eating outside food since current diet is very bland. Discussed need to follow low sugar, low carb diet - Endocrinology on board and appreciate recommendations. Continue on current insulin and glimepiride. 4. Extensive bilateral multilobar pneumonia - Pulm on board and continue current treatment. Appears TB QuantiFERON tube was contaminated and unable to generate results. Cocci studies still pending. Anticipate discharge on Bactrim and Rifampin for 4 week course - Repeat CT scan performed this am showing "Multifocal bilateral areas of pneumonia are again present and have diminished in overall size however there is interval development of multiple foci of lucencies within the areas of consolidation suggestive for bronchiectasis or developing small cavitary lesions." - Sputum cultures growing MRSA - ID recommendations appreciated 5. Homelessness - SW on board - patient states she plans to go to rehab following discharge 6. History of meth abuse - Patient states last use was 2 weeks prior to admission. Counseled on cessation. 7. Tobacco use - Cessation advised. 8. Iron Deficient anemia. - Continue oral iron. - H&H stable. 9. Mild asthma. - Currently stable. At this time, this is controlled with as needed SELMA 10. Disposition - Awaiting Cocci serology. Will touch base with Pulm if need to repeat QuantiFERON. Result Diagram: 06/22/18 0530 06/22/18 0530 Results 24hrs Laboratory Tests Test 06/22/18 12:12 06/22/18 17:40 06/22/18 20:27 06/23/18 08:05 Bedside Glucose 141 255 H 171 103 Subjective 24 Hr Interval Summary Free Text/Dictation Patient admits to nausea and vomiting in the am after receiving morning medications. She believes may be secondary to antibiotics. Discussed making sure she had food in stomach prior to taking all medications in the am. No acute overnight events. Exam/Review of Systems Exam Vitals Vital Signs Date Temp Pulse Resp B/P (MAP) Pulse Ox O2 O2 Flow FiO2 Time Delivery Rate 06/23/18 97.9 129 20 108/77 95 Room Air 07:36 (87) Intake and Output 06/22/18 06/22/18 06/23/18 1515:00 23:00 07:00 IntakeIntake Total 720 ml 850 ml 1200 ml BalanceBalance 720 ml 850 ml 1200 ml Exam General: Patient is laying in bed and answers questions appropriately. no acute distress Neck: Supple Respiratory: diminished bilaterally. no wheezing appreciated Cardiovascular: S1, S2, regular rhythm, tachycardia, no obvious murmurs Gastrointestinal: non-tender to palpation, bowel sounds heard. Neurological: Moves all extremities spontaneously Skin: No new skin lesions Results Results 24hrs Laboratory Tests Test 06/22/18 12:12 06/22/18 17:40 06/22/18 20:27 06/23/18 08:05 Bedside Glucose 141 255 H 171 103 Medications Medication Current Medications Ondansetron HCl (Zofran Inj) 4 mg Q6H PRN IV NAUSEA AND/OR VOMITING Last ad ministered on 06/22/18at 13:23; Admin Dose 4 MG; Start 06/09/18 at 00:30 Ipratropium [place] (Atrovent 0.02% (Neb)) 0.5 mg Q2H RESP THERAPY PRN NEB SHORTNESS OF BREATH Last administered on 06/14/18at 21:38; Admin Dose 0.5 MG; Start 06/09/18 at 00:30 Acetaminophen (Tylenol Liquid) 650 mg Q6H PRN PO PAIN LEVEL 1-3 OR FEVER Last administered on 06/18/18at 05:57; Admin Dose 650 MG; Start 06/09/18 at 00:30 Docusate Sodium (Colace) 100 mg Q12H PRN PO CONSTIPATION; Start 06/09/18 at 00:30 Bisacodyl (Dulcolax) 5 mg DAILY PRN PO CONSTIPATION; Start 06/09/18 at 00:30 Pantoprazole (Protonix Tab) 40 mg DAILY@06 PO Last administered on 06/23/18 06:12; Admin Dose 40 MG; Start 06/09/18 at 06:00 Diagnostic Test (Pha) (Accu-Chek) 1 ea 02 XX Last administered on 06/22/18 01:55; Admin Dose 1 EA; Start 06/10/18 at 02:00 Insulin Aspart (Novolog Insulin Pen) NOVOLOG *MILD* ALGORITHM WITH MEALS BEDTIME SC Last administered on 06/22/18 17:48; Admin Dose 3 UNIT; Start 06/09/18 at 18:00 Miscellaneous Information 1 ea NOTE XX ; Start 06/09/18 at 14:30 Glucose (Glutose) 15 gm Q15M PRN PO DECREASED GLUCOSE; Start 06/09/18 at 14:30 Glucose (Glutose) 22.5 gm Q15M PRN PO DECREASED GLUCOSE; Start 06/09/18 at 14:30 Dextrose (D50w Syringe) 25 ml Q15M PRN IV DECREASED GLUCOSE Last administered on 06/15/18 20:53; Admin Dose 25 ML; Start 06/09/18 at 14:30 Dextrose (D50w Syringe) 50 ml Q15M PRN IV DECREASED GLUCOSE; Start 06/09/18 at 14:30 Glucagon (Glucagen) 1 mg Q15M PRN IM DECREASED GLUCOSE; Start 06/09/18 at 14:30 Glucose (Glutose) 15 gm Q15M PRN BUCCAL DECREASED GLUCOSE; Start 06/09/18 at 14:30 Ferrous Sulfate (Ferrous Sulfate (Ec)) 325 mg DAILY PO Last administered on 06/23/18 08:56; Admin Dose 325 MG; Start 06/13/18 at 10:30; Stop 08/12/18 at 10:29 Glimepiride (Amaryl) 4 mg AC BREAKFAST DINNER PO Last administered on 06/23/18 07:41; Admin Dose 4 MG; Start 06/13/18 at 17:30 Levalbuterol (Xopenex Neb) 1.25 mg Q6H RESP THERAPY PRN HHN sob/wheezing Last administered on 06/14/18 21:38; Admin Dose 1.25 MG; Start 06/14/18 at 09:00 Guaifenesin/ Dextromethorphan (Mucinex Dm) 1 tab BID PO Last administered on 06/23/18 08:56; Admin Dose 1 TAB; Start 06/14/18 at 09:30 Metformin HCl (Glucophage) 1,000 mg BID WITH MEALS PO Last administered on 06/23/18 08:07; Admin Dose 1,000 MG; Start 06/16/18 at 18:00 Ascorbic Acid (Vitamin C) 500 mg DAILY PO Last administered on 06/23/18 08:56; Admin Dose 500 MG; Start 06/17/18 at 09:00; Stop 08/16/18 at 08:59 Insulin Human NPH (Humulin N) 12 unit DAILY@20 SC Last administered on 06/22/18 20:31; Admin Dose 12 UNIT; Start 06/17/18 at 20:00 Guaifenesin/ Codeine Phosphate (Robitussin Ac Liquid Cup) 5 ml Q4H PRN PO cough Last administered on 06/18/18 20:25; Admin Dose 5 ML; Start 06/18/18 at 12:00 Linezolid (Zyvox) 600 mg BID PO Last administered on 06/23/18 08:56; Admin Dose 600 MG; Start 06/18/18 at 21:00 Fluconazole (Diflucan) 100 mg DAILY PO Last administered on 06/23/18 08:56; Admin Dose 100 MG; Start 06/21/18 at 09:00 Rifampin (Rifampin) 600 mg DAILY PO Last administered on 06/23/18 08:56; Admin Dose 600 MG; Start 06/20/18 at 14:30 Zolpidem Tartrate (Ambien) 10 mg HS PO Last administered on 06/22/18 20:23; Admin Dose 10 MG; Start 06/22/18 at 21:00 Sodium Chloride 500 ml @ 500 mls/hr Q1H ONCE IV Last administered on 06/23/18 08:57; Admin Dose 500 MLS/HR; Start 06/23/18 at 08:30; Stop 06/23/18 at 09:29 DAVE HAMMONDS MD Jun 23, 2018 09:13
--- NOTE | 2018-06-23 13:05 | CONS ---
Consult Date/Type/Reason Admit Date/Time Jun 08, 2018 at 23:53 Initial Consult Date Type of Consult Pulmonary Requesting Provider: ARIS ANDERSEN Date/Time of Note DATE: 06/23/18 TIME: 13:04 Subjective Patient still has occasional productive cough no hemoptysis. Objective Vital Signs Date Temp Pulse Resp B/P (MAP) Pulse Ox O2 O2 Flow FiO2 Time Delivery Rate 06/23/18 98.5 122 20 117/82 97 Room Air 11:07 (94) Intake and Output 06/22/18 06/22/18 06/23/18 1515:00 23:00 07:00 IntakeIntake Total 720 ml 850 ml 1200 ml BalanceBalance 720 ml 850 ml 1200 ml Exam GENERAL: VITAL SIGNS: per chart NECK: Supple. No JVD or lymphadenopathy. CARDIAC EXAM: S1, S2. No added sounds or murmurs. CHEST: Diminished air entry bilaterally ABDOMEN: Soft, nontender. No guarding or rebound. EXTREMITIES: No cyanosis, clubbing or edema. NEUROLOGIC: Generalized weakness. No focal deficits. Vent Setting Fraction of Inspired Oxygen pe: 21 Results/Medications Result Diagram: 06/22/1852906/22/18529 Results 24 hrs Laboratory Tests Test 06/22/18 17:40 06/22/18 20:27 06/23/18 08:05 06/23/18 11:17 Bedside Glucose 255 H 171 103 92 Medications Current Medications Ondansetron HCl (Zofran Inj) 4 mg Q6H PRN IV NAUSEA AND/OR VOMITING Last administered on 06/22/18at 13:23; Admin Dose 4 MG; Start 06/09/18 at 00:30 Ipratropium [place] (Atrovent 0.02% (Neb)) 0.5 mg Q2H RESP THERAPY PRN NEB SHORTNESS OF BREATH Last administered on 06/14/18at 21:38; Admin Dose 0.5 MG; Start 06/09/18 at 00:30 Acetaminophen (Tylenol Liquid) 650 mg Q6H PRN PO PAIN LEVEL 1-3 OR FEVER Last administered on 06/18/18at 05:57; Admin Dose 650 MG; Start 06/09/18 at 00:30 Docusate Sodium (Colace) 100 mg Q12H PRN PO CONSTIPATION; Start 06/09/18 at 00:30 Bisacodyl (Dulcolax) 5 mg DAILY PRN PO CONSTIPATION; Start 06/09/18 at 00:30 Pantoprazole (Protonix Tab) 40 mg DAILY@06 PO Last administered on 06/23/18 06:12; Admin Dose 40 MG; Start 06/09/18 at 06:00 Diagnostic Test (Pha) (Accu-Chek) 1 ea 02 XX Last administered on 06/22/18 01:55; Admin Dose 1 EA; Start 06/10/18 at 02:00 Insulin Aspart (Novolog Insulin Pen) NOVOLOG *MILD* ALGORITHM WITH MEALS BEDT CALLY SC Last administered on 06/22/18 17:48; Admin Dose 3 UNIT; Start 06/09/18 at 18:00 Miscellaneous Information 1 ea NOTE XX ; Start 06/09/18 at 14:30 Glucose (Glutose) 15 gm Q15M PRN PO DECREASED GLUCOSE; Start 06/09/18 at 14:30 Glucose (Glutose) 22.5 gm Q15M PRN PO DECREASED GLUCOSE; Start 06/09/18 at 14:30 Dextrose (D50w Syringe) 25 ml Q15M PRN IV DECREASED GLUCOSE Last administered on 06/15/18 20:53; Admin Dose 25 ML; Start 06/09/18 at 14:30 Dextrose (D50w Syringe) 50 ml Q15M PRN IV DECREASED GLUCOSE; Start 06/09/18 at 14:30 Glucagon (Glucagen) 1 mg Q15M PRN IM DECREASED GLUCOSE; Start 06/09/18 at 14:30 Glucose (Glutose) 15 gm Q15M PRN BUCCAL DECREASED GLUCOSE; Start 06/09/18 at 14:30 Ferrous Sulfate (Ferrous Sulfate (Ec)) 325 mg DAILY PO Last administered on 06/23/18 08:56; Admin Dose 325 MG; Start 06/13/18 at 10:30; Stop 08/12/18 at 10:29 Glimepiride (Amaryl) 4 mg AC BREAKFAST DINNER PO Last administered on 06/23/18 07:41; Admin Dose 4 MG; Start 06/13/18 at 17:30 Levalbuterol (Xopenex Neb) 1.25 mg Q6H RESP THERAPY PRN HHN sob/wheezing Last administered on 06/14/18at 21:38; Admin Dose 1.25 MG; Start 06/14/18 at 09:00 Guaifenesin/ Dextromethorphan (Mucinex Dm) 1 tab BID PO Last administered on 06/23/18 08:56; Admin Dose 1 TAB; Start 06/14/18 at 09:30 Metformin HCl (Glucophage) 1,000 mg BID WITH MEALS PO Last administered on 06/23/18 08:07; Admin Dose 1,000 MG; Start 06/16/18 at 18:00 Ascorbic Acid (Vitamin C) 500 mg DAILY PO Last administered on 06/23/18 08:56; Admin Dose 500 MG; Start 06/17/18 at 09:00; Stop 08/16/18 at 08:59 Insulin Human NPH (Humulin N) 12 unit DAILY@20 SC Last administered on 06/22/18 20:31; Admin Dose 12 UNIT; Start 06/17/18 at 20:00 Guaifenesin/ Codeine Phosphate (Robitussin Ac Liquid Cup) 5 ml Q4H PRN PO cough Last administered on 06/18/18 20:25; Admin Dose 5 ML; Start 06/18/18 at 12:00 Linezolid (Zyvox) 600 mg BID PO Last administered on 06/23/18 08:56; Admin Dose 600 MG; Start 06/18/18 at 21:00 Fluconazole (Diflucan) 100 mg DAILY PO Last administered on 06/23/18 08:56; Admin Dose 100 MG; Start 06/21/18 at 09:00 Rifampin (Rifampin) 600 mg DAILY PO Last administered on 06/23/18 08:56; Admin Dose 600 MG; Start 06/20/18 at 14:30 Zolpidem Tartrate (Ambien) 10 mg HS PO Last administered on 06/22/18 20:23; Admin Dose 10 MG; Start 06/22/18 at 21:00 Assessment/Plan Hospital Course (Demo Recall) Assessment 1. Homeless lady with bilateral infiltrates cavitating some areas concerning for possible Mycobacterium tuberculosis. Negative AFB x2 QuantiFERON gold pending Plan 1. Continue current antibiotics with improved leukocytosis, repeat CT chest 2. Await TB rule out and coccidiomycosis serology 3. Consider discharge home on 1 month of antibiotics probably Augmentin if TB serology negative. If QuantiFERON gold test is positive patient will need bronchoscopy with lavage. ALICIA HAZEL MD, [facility] Jun 23, 2018 13:05
--- NOTE | 2018-06-23 15:19 | CONS ---
Assessment/Plan Assessment/Plan Hospital Course (Demo Recall) Alert, feels better, no fevers, nad AFB smears negative 3 sets Microbiology: Blood culture on June 08 grew MRSA, repeat blood cultures negative, sputum culture on June 16 grew Talia albicans and MRSA. Serology for HIV negative Antimicrobials: Zyvox Rifampin Diflucan Physical examination: Well-developed middle-aged woman who is alert in no distress. Head atraumatic normocephalic sclera nonicteric. Neck is supple chest rise symmetrical breath sounds diminished bases. Heart S1-S2. Abdomen soft bowel sounds present. Extremities without cyanosis. Assessment: 1. Resolving sepsis 2. MRSA bacteremia on admission 3. Necrotizing MRSA pneumonia with areas of cavitation per CT 4. Homelessness 5. Poorly controlled diabetes 6. History of recent meth amphetamine abuse Plan: Patient remained stable, anticipate dc on oral Bactrim and Rifampin for 4 more weeks, pending cocci serology Consultation Date/Type/Reason Admit Date/Time Jun 08, 2018 at 23:53 Initial Consult Date Type of Consult id Requesting Provider: ARIS ANDERSEN Date/Time of Note DATE: 06/23/18 TIME: 15:18 Exam/Review of Systems Exam Vitals Vital Signs Date Temp Pulse Resp B/P (MAP) Pulse Ox O2 O2 Flow FiO2 Time Delivery Rate 06/23/18 123 12:00 06/23/18 98.5 20 117/82 97 Room Air 11:07 (94) Intake and Output 06/22/18 06/22/18 06/23/18 1515:00 23:00 07:00 IntakeIntake Total 720 ml 850 ml 1200 ml BalanceBalance 720 ml 850 ml 1200 ml Results Result Diagram: 06/22/18 0530 06/22/18 0530 Results 24hrs Laboratory Tests Test 06/22/18 17:40 06/22/18 20:27 06/23/18 08:05 06/23/18 11:17 Bedside Glucose 255 H 171 103 92 Medications Medication Current Medications Ondansetron HCl (Zofran Inj) 4 mg Q6H PRN IV NAUSEA AND/OR VOMITING Last administered on 06/22/18at 13:23; Admin Dose 4 MG; Start 06/09/18 at 00:30 Ipratropium [place] (Atrovent 0.02% (Neb)) 0.5 mg Q2H RESP THERAPY PRN NEB SHORTNESS OF BREATH Last administered on 06/14/18 21:38; Admin Dose 0.5 MG; Start 06/09/18 at 00:30 Acetaminophen (Tylenol Liquid) 650 mg Q6H PRN PO PAIN LEVEL 1-3 OR FEVER Last administered on 06/18/18 05:57; Admin Dose 650 MG; Start 06/09/18 at 00:30 Docusate Sodium (Colace) 100 mg Q12H PRN PO CONSTIPATION; Start 06/09/18 at 00:30 Bisacodyl (Dulcolax) 5 mg DAILY PRN PO CONSTIPATION; Start 06/09/18 at 00:30 Pantoprazole (Protonix Tab) 40 mg DAILY@06 PO Last administered on 06/23/18 06:12; Admin Dose 40 MG; Start 06/09/18 at 06:00 Diagnostic Test (Pha) (Accu-Chek) 1 ea 02 XX Last administered on 06/22/18 01:55; Admin Dose 1 EA; Start 06/10/18 at 02:00 Insulin Aspart (Novolog Insulin Pen) NOVOLOG *MILD* ALGORITHM WITH MEALS BEDTIME SC Last administered on 06/22/18 17:48; Admin Dose 3 UNIT; Start 06/09/18 at 18:00 Miscellaneous Information 1 ea NOTE XX ; Start 06/09/18 at 14:30 Glucose (Glutose) 15 gm Q15M PRN PO DECREASED GLUCOSE; Start 06/09/18 at 14:30 Glucose (Glutose) 22.5 gm Q15M PRN PO DECREASED GLUCOSE; Start 06/09/18 at 14:30 Dextrose (D50w Syringe) 25 ml Q15M PRN IV DECREASED GLUCOSE Last administered on 06/15/18 20:53; Admin Dose 25 ML; Start 06/09/18 at 14:30 Dextrose (D50w Syringe) 50 ml Q15M PRN IV DECREASED GLUCOSE; Start 06/09/18 at 14:30 Glucagon (Glucagen) 1 mg Q15M PRN IM DECREASED GLUCOSE; Start 06/09/18 at 14:30 Glucose (Glutose) 15 gm Q15M PRN BUCCAL DECREASED GLUCOSE; Start 06/09/18 at 14:30 Ferrous Sulfate (Ferrous Sulfate (Ec)) 325 mg DAILY PO Last administered on 06/23/18 08:56; Admin Dose 325 MG; Start 06/13/18 at 10:30; Stop 08/12/18 at 10:29 Glimepiride (Amaryl) 4 mg AC BREAKFAST DINNER PO Last administered on 06/23/18 07:41; Admin Dose 4 MG; Start 06/13/18 at 17:30 Levalbuterol (Xopenex Neb) 1.25 mg Q6H RESP THERAPY PRN HHN sob/wheezing Last administered on 06/14/18 21:38; Admin Dose 1.25 MG; Start 06/14/18 at 09:00 Guaifenesin/ Dextromethorphan (Mucinex Dm) 1 tab BID PO Last administered on 06/23/18 08:56; Admin Dose 1 TAB; Start 06/14/18 at 09:30 Metformin HCl (Glucophage) 1,000 mg BID WITH MEALS PO Last administered on 06/23/18 08:07; Admin Dose 1,000 MG; Start 06/16/18 at 18:00 Ascorbic Acid (Vitamin C) 500 mg DAILY PO Last administered on 06/23/18 08:56; Admin Dose 500 MG; Start 06/17/18 at 09:00; Stop 08/16/18 at 08:59 Insulin Human NPH (Humulin N) 12 unit DAILY@20 SC Last administered on 06/22/18 20:31; Admin Dose 12 UNIT; Start 06/17/18 at 20:00 Guaifenesin/ Codeine Phosphate (Robitussin Ac Liquid Cup) 5 ml Q4H PRN PO cough Last administered on 06/18/18 20:25; Admin Dose 5 ML; Start 06/18/18 at 12:00 Linezolid (Zyvox) 600 mg BID PO Last administered on 06/23/18 08:56; Admin Dose 600 MG; Start 06/18/18 at 21:00 Fluconazole (Diflucan) 100 mg DAILY PO Last administered on 06/23/18 08:56; Admin Dose 100 MG; Start 06/21/18 at 09:00 Rifampin (Rifampin) 600 mg DAILY PO Last administered on 06/23/18 08:56; Admin Dose 600 MG; Start 06/20/18 at 14:30 Zolpidem Tartrate (Ambien) 10 mg HS PO Last administered on 06/22/18 20:23; Admin Dose 10 MG; Start 06/22/18 at 21:00 JOSE GOVEA NP Jun 23, 2018 15:19
--- NOTE | 2018-06-23 15:43 | CONS ---
Assessment/Plan Assessment/Plan Problems: (1) Diabetes mellitus type 2 in nonobese Status: Chronic Comment: Adequate control on the current regimen. Consultation Date/Type/Reason Admit Date/Time Jun 08, 2018 at 23:53 Initial Consult Date June 09, 2018 Type of Consult Endocrinology Reason for Consultation Diabetes mellitus type 2 with poor control Requesting Provider: ARIS ANDERSEN Date/Time of Note DATE: 06/23/18 TIME: 15:43 24 HR Interval Summary Free Text/Dictation Patient continues to do relatively well regarding his sugars. Detailed Summary Endocrine: no complaints Exam/Review of Systems Exam Vitals Vital Signs Date Temp Pulse Resp B/P (MAP) Pulse Ox O2 O2 Flow FiO2 Time Delivery Rate 06/23/18 123 12:00 06/23/18 98.5 20 117/82 97 Room Air 11:07 (94) Intake and Output 06/22/18 06/22/18 06/23/18 1414:59 22:59 06:59 IntakeIntake Total 720 ml 850 ml 1200 ml BalanceBalance 720 ml 850 ml 1200 ml Constitutional: alert, oriented Cardiovascular: regular rate and rhythm, nl pulses Results Result Diagram: 06/22/18 0530 06/22/18 0530 Results 24hrs Laboratory Tests Test 06/22/18 17:40 06/22/18 20:27 06/23/18 08:05 06/23/18 11:17 Bedside Glucose 255 H 171 103 92 Medications Medication Current Medications Ondansetron HCl (Zofran Inj) 4 mg Q6H PRN IV NAUSEA AND/OR VOMITING Last administered on 06/22/18at 13:23; Admin Dose 4 MG; Start 06/09/18 at 00:30 Ipratropium [place] (Atrovent 0.02% (Neb)) 0.5 mg Q2H RESP THERAPY PRN NEB SHORTNESS OF BREATH Last administered on 06/14/18at 21:38; Admin Dose 0.5 MG; Start 06/09/18 at 00:30 Acetaminophen (Tylenol Liquid) 650 mg Q6H PRN PO PAIN LEVEL 1-3 OR FEVER Last administered on 06/18/18at 05:57; Admin Dose 650 MG; Start 06/09/18 at 00:30 Docusate Sodium (Colace) 100 mg Q12H PRN PO CONSTIPATION; Start 06/09/18 at 00:30 Bisacodyl (Dulcolax) 5 mg DAILY PRN PO CONSTIPATION; Start 06/09/18 at 00:30 Pantoprazole (Protonix Tab) 40 mg DAILY@06 PO Last administered on 06/23/18 06:12; Admin Dose 40 MG; Start 06/09/18 at 06:00 Diagnostic Test (Pha) (Accu-Chek) 1 ea 02 XX Last administered on 06/22/18 01:55; Admin Dose 1 EA; Start 06/10/18 at 02:00 Insulin Aspart (Novolog Insulin Pen) NOVOLOG *MILD* ALGORITHM WITH MEALS BEDTIME SC Last administered on 06/22/18 17:48; Admin Dose 3 UNIT; Start 06/09/18 at 18:00 Miscellaneous Information 1 ea NOTE XX ; Start 06/09/18 at 14:30 Glucose (Glutose) 15 gm Q15M PRN PO DECREASED GLUCOSE; Start 06/09/18 at 14:30 Glucose (Glutose) 22.5 gm Q15M PRN PO DECREASED GLUCOSE; Start 06/09/18 at 14:30 Dextrose (D50w Syringe) 25 ml Q15M PRN IV DECREASED GLUCOSE Last administered on 06/15/18 20:53; Admin Dose 25 ML; Start 06/09/18 at 14:30 Dextrose (D50w Syringe) 50 ml Q15M PRN IV DECREASED GLUCOSE; Start 06/09/18 at 14:30 Glucagon (Glucagen) 1 mg Q15M PRN IM DECREASED GLUCOSE; Start 06/09/18 at 14:30 Glucose (Glutose) 15 gm Q15M PRN BUCCAL DECREASED GLUCOSE; Start 06/09/18 at 14:30 Ferrous Sulfate (Ferrous Sulfate (Ec)) 325 mg DAILY PO Last administered on 06/23/18 08:56; Admin Dose 325 MG; Start 06/13/18 at 10:30; Stop 08/12/18 at 10:29 Glimepiride (Amaryl) 4 mg AC BREAKFAST DINNER PO Last administered on 06/23/18 07:41; Admin Dose 4 MG; Start 06/13/18 at 17:30 Levalbuterol (Xopenex Neb) 1.25 mg Q6H RESP THERAPY PRN HHN sob/wheezing Last administered on 06/14/18 21:38; Admin Dose 1.25 MG; Start 06/14/18 at 09:00 Guaifenesin/ Dextromethorphan (Mucinex Dm) 1 tab BID PO Last administered on 06/23/18 08:56; Admin Dose 1 TAB; Start 06/14/18 at 09:30 Metformin HCl (Glucophage) 1,000 mg BID WITH MEALS PO Last administered on 06/23/18 08:07; Admin Dose 1,000 MG; Start 06/16/18 at 18:00 Ascorbic Acid (Vitamin C) 500 mg DAILY PO Last administered on 06/23/18 08:56; Admin Dose 500 MG; Start 06/17/18 at 09:00; Stop 08/16/18 at 08:59 Insulin Human NPH (Humulin N) 12 unit DAILY@20 SC Last administered on 06/22/18 20:31; Admin Dose 12 UNIT; Start 06/17/18 at 20:00 Guaifenesin/ Codeine Phosphate (Robitussin Ac Liquid Cup) 5 ml Q4H PRN PO cough Last administered on 06/18/18 20:25; Admin Dose 5 ML; Start 06/18/18 at 12:00 Linezolid (Zyvox) 600 mg BID PO Last administered on 06/23/18 08:56; Admin Dose 600 MG; Start 06/18/18 at 21:00 Fluconazole (Diflucan) 100 mg DAILY PO Last administered on 06/23/18 08:56; Admin Dose 100 MG; Start 06/21/18 at 09:00 Rifampin (Rifampin) 600 mg DAILY PO Last administered on 06/23/18 08:56; Admin Dose 600 MG; Start 06/20/18 at 14:30 Zolpidem Tartrate (Ambien) 10 mg HS PO Last administered on 06/22/18 20:23; Admin Dose 10 MG; Start 06/22/18 at 21:00 STEVE AGGARWAL MD Jun 23, 2018 15:43
[2018-06-23] MEDS: ONDANSETRON 4 MG INJ IV PRN (20:44)
[2018-06-23] MEDS: NPH, HUMAN INSULIN ISOPHANE 3ML VIAL SC SCH (20:59)
[2018-06-23] MEDS: ZOLPIDEM 5 MG TAB PO SCH (22:27)
[2018-06-24] VITALS (14 sets, daily range): BP systolic 112–131; BP diastolic 62–80; PULSE 106–151; RESP 17–22
[2018-06-24] MEDS: ACCU-CHEK XX SCH (02:00)
[2018-06-24] MEDS: PANTOPRAZOLE (EC) 40 MG TAB PO SCH (05:57)
[2018-06-24] MEDS: INSULIN ASPART [NOVOLOG] 3 ML PEN SC SCH ×4 (07:46→20:59)
[2018-06-24] MEDS: metFORMIN 500 MG TAB PO SCH ×2 (07:46→17:30)
[2018-06-24] MEDS: ONDANSETRON 4 MG INJ IV PRN ×3 (07:54→22:41)
[2018-06-24] MEDS: RIFAMPIN 300 MG CAP PO SCH (08:33)
[2018-06-24] MEDS: ASCORBIC ACID 500 MG TAB PO SCH (08:33)
[2018-06-24] MEDS: FERROUS SULFATE (EC) 325 MG TAB PO SCH (08:33)
[2018-06-24] MEDS: FLUCONAZOLE 100 MG TAB PO SCH (08:33)
[2018-06-24] MEDS: ZYVOX 600 MG TAB PO SCH ×2 (08:33→20:58)
[2018-06-24] MEDS: GUAIFENESIN/DM (SR) TAB PO SCH ×2 (08:33→20:58)
--- NOTE | 2018-06-24 08:54 | PN ---
Date/Time of Note Date/Time of Note DATE: 06/24/18 TIME: 08:54 Assessment/Plan VTE Prophylaxis Risk score (from Ns)>0 risk: 1 SCD applied (from Ns): No SCD contraindicated: low risk/ambulating Pharmacological prophylaxis: NA/contraindicated Pharm contraindication: low risk/ambulating Lines/Catheters IV [facility] Saline Lock Urinary Cath still in place: No Assessment/Plan Assessment/Plan 1. Sepsis with MRSA bacteremia and PNA- improving - Patient remains afebrile with nl WBC. Still tachycardic - CT scan shows improvement in bilateral infiltrates but pulm concerned about septic emboli - ID on board and appreciate recommendations. Continue on current antibiotics 2. Tachycardia - most likely secondary to pulmonary process 3. Poorly controlled diabetes- improving - A1c noted - Admits to eating outside food since current diet is very bland. Discussed need to follow low sugar, low carb diet - Endocrinology on board and appreciate recommendations. Continue on current insulin and glimepiride. 4. Extensive bilateral multilobar pneumonia - Pulm on board and continue current treatment. Appears TB QuantiFERON tube was contaminated and unable to generate results. Cocci studies still pending. After review of recent CT scan concern for septic emboli. Will get limited ECHO to check for vegetation and if negative, will most likely need BITA - Repeat CT scan performed this am showing "Multifocal bilateral areas of pneumonia are again present and have diminished in overall size however there is interval development of multiple foci of lucencies within the areas of consolidation suggestive for bronchiectasis or developing small cavitary lesions." - Sputum cultures growing MRSA - ID recommendations appreciated 5. Homelessness - SW on board - patient states she plans to go to rehab following discharge 6. History of meth abuse - Patient states last use was 2 weeks prior to admission. Counseled on cessation. 7. Tobacco use - Cessation advised. 8. Iron Deficient anemia. - Continue oral iron. - H&H stable. 9. Mild asthma. - Currently stable. At this time, this is controlled with as needed SELMA 10. Disposition - Awaiting Cocci serology. Will order repeat ECHO to evaluate for vegetation. If negative, will consult cardio for possible BITA Result Diagram: 06/22/18 0530 06/22/18 0530 Results 24hrs Laboratory Tests Test 06/23/18 11:17 06/23/18 17:49 06/23/18 20:39 06/24/18 07:44 Bedside Glucose 92 85 77 72 Subjective 24 Hr Interval Summary Free Text/Dictation Patient fighting with boyfriend this am and very upset. States she feels like she is trapped in the hospital room and unable to get her own shampoo/conditioner. Talking about leaving AMA but discussed the risks given her pneumonia and agreed to take a breath and rethink leaving. Exam/Review of Systems Exam Vitals Vital Signs Date Temp Pulse Resp B/P (MAP) Pulse Ox O2 O2 Flow FiO2 Time Delivery Rate 06/24/18 97.5 106 18 129/67 93 08:07 (87) 06/23/18 Room Air 15:46 Intake and Output 06/23/18 06/23/18 06/24/18 1515:00 23:00 07:00 IntakeIntake Total 250 ml 750 ml 700 ml BalanceBalance 250 ml 750 ml 700 ml Exam General: Patient is laying in bed and answers questions appropriately. no acute distress Neck: Supple Respiratory: diminished bilaterally. no wheezing appreciated Cardiovascular: S1, S2, regular rhythm, tachycardia, no obvious murmurs Gastrointestinal: non-tender to palpation, bowel sounds heard. Neurological: Moves all extremities spontaneously Skin: No new skin lesions Results Results 24hrs Laboratory Tests Test 06/23/18 11:17 06/23/18 17:49 06/23/18 20:39 06/24/18 07:44 Bedside Glucose 92 85 77 72 Medications Medication Current Medications Ondansetron HCl (Zofran Inj) 4 mg Q6H PRN IV NAUSEA AND/OR VOMITING Last administered on 06/24/18at 07:55; Admin Dose 4 MG; Start 06/09/18 at 00:30 Ipratropium [place] (Atrovent 0.02% (Neb)) 0.5 mg Q2H RESP THERAPY PRN NEB SHORTNESS OF BREATH Last administered on 06/14/18at 21:38; Admin Dose 0.5 MG; Start 06/09/18 at 00:30 Acetaminophen (Tylenol Liquid) 650 mg Q6H PRN PO PAIN LEVEL 1-3 OR FEVER Last administered on 06/18/18at 05:57; Admin Dose 650 MG; Start 06/09/18 at 00:30 Docusate Sodium (Colace) 100 mg Q12H PRN PO CONSTIPATION; Start 06/09/18 at 00:30 Bisacodyl (Dulcolax) 5 mg DAILY PRN PO CONSTIPATION; Start 06/09/18 at 00:30 Pantoprazole (Protonix Tab) 40 mg DAILY@06 PO Last administered on 06/24/18at 05:57; Admin Dose 40 MG; Start 06/09/18 at 06:00 Diagnostic Test (Pha) (Accu-Chek) 1 ea 02 XX Last administered on 06/22/18at 01:55; Admin Dose 1 EA; Start 06/10/18 at 02:00 Insulin Aspart (Novolog Insulin Pen) NOVOLOG *MILD* ALGORITHM WITH MEALS BEDTIME SC Last administered on 06/22/18 17:48; Admin Dose 3 UNIT; Start 06/09/18 at 18:00 Miscellaneous Information 1 ea NOTE XX ; Start 06/09/18 at 14:30 Glucose (Glutose) 15 gm Q15M PRN PO DECREASED GLUCOSE; Start 06/09/18 at 14:30 Glucose (Glutose) 22.5 gm Q15M PRN PO DECREASED GLUCOSE; Start 06/09/18 at 14:30 Dextrose (D50w Syringe) 25 ml Q15M PRN IV DECREASED GLUCOSE Last administered on 06/15/18at 20:53; Admin Dose 25 ML; Start 06/09/18 at 14:30 Dextrose (D50w Syringe) 50 ml Q15M PRN IV DECREASED GLUCOSE; Start 06/09/18 at 14:30 Glucagon (Glucagen) 1 mg Q15M PRN IM DECREASED GLUCOSE; Start 06/09/18 at 14:30 Glucose (Glutose) 15 gm Q15M PRN BUCCAL DECREASED GLUCOSE; Start 06/09/18 at 14:30 Ferrous Sulfate (Ferrous Sulfate (Ec)) 325 mg DAILY PO Last administered on 06/24/18at 08:33; Admin Dose 325 MG; Start 06/13/18 at 10:30; Stop 08/12/18 at 10:29 Levalbuterol (Xopenex Neb) 1.25 mg Q6H RESP THERAPY PRN HHN sob/wheezing Last administered on 06/14/18at 21:38; Admin Dose 1.25 MG; Start 06/14/18 at 09:00 Guaifenesin/ Dextromethorphan (Mucinex Dm) 1 tab BID PO Last administered on 06/24/18 08:33; Admin Dose 1 TAB; Start 06/14/18 at 09:30 Metformin HCl (Glucophage) 1,000 mg BID WITH MEALS PO Last administered on 06/24/18 07:46; Admin Dose 1,000 MG; Start 06/16/18 at 18:00 Ascorbic Acid (Vitamin C) 500 mg DAILY PO Last administered on 06/24/18 08:33; Admin Dose 500 MG; Start 06/17/18 at 09:00; Stop 08/16/18 at 08:59 Insulin Human NPH (Humulin N) 12 unit DAILY@20 SC Last administered on 06/23/18 20:59; Admin Dose 12 UNIT; Start 06/17/18 at 20:00 Guaifenesin/ Codeine Phosphate (Robitussin Ac Liquid Cup) 5 ml Q4H PRN PO cough Last administered on 06/18/18 20:25; Admin Dose 5 ML; Start 06/18/18 at 12:00 Linezolid (Zyvox) 600 mg BID PO Last administered on 06/24/18 08:33; Admin Dose 600 MG; Start 06/18/18 at 21:00 Fluconazole (Diflucan) 100 mg DAILY PO Last administered on 06/24/18 08:33; Admin Dose 100 MG; Start 06/21/18 at 09:00 Rifampin (Rifampin) 600 mg DAILY PO Last administered on 06/24/18 08:33; Admin Dose 600 MG; Start 06/20/18 at 14:30 Zolpidem Tartrate (Ambien) 10 mg HS PO Last administered on 06/23/18 22:27; Admin Dose 10 MG; Start 06/22/18 at 21:00 Glimepiride (Amaryl) 2 mg AC BREAKFAST DINNER PO ; Start 06/24/18 at 17:30 DAVE HAMMONDS MD Jun 24, 2018 08:54
--- NOTE | 2018-06-24 09:41 | CONS ---
Assessment/Plan Assessment/Plan Problems: (1) Diabetes mellitus type 2 in nonobese Status: Chronic Comment: Glucose below goal throughout the day yesterday. This may be due to her poor appetite yesterday but will decrease glimepiride to 2 mg bid to reduce risk of hypoglycemia. Monitor and reeval now that appetite improved. Consultation Date/Type/Reason Admit Date/Time Jun 08, 2018 at 23:53 Initial Consult Date 06/09/18 Type of Consult Endocrinology Reason for Consultation DKA Requesting Provider: ARIS ANDERSEN Date/Time of Note DATE: 06/24/18 TIME: 09:38 24 HR Interval Summary Constitutional: no complaints, improved Detailed Summary Respiratory: cough Cardiovascular: chest pain (hurts when she coughs in her ribs B) Gastrointestinal: decreased appetite (improved from yesterday; rifampin was making her sick), nausea (improved from yesterday; rifampin was making her sick), vomiting (improved from yesterday; rifampin was making her sick) Genitourinary: no complaints Musculoskeletal: no complaints Skin: other (dryness B feet) Neurologic: no complaints Exam/Review of Systems Exam Vitals VS - Last 72 Hours, by Label Date Temp Pulse Resp B/P (MAP) Pulse Ox O2 O2 Flow FiO2 Time Delivery Rate 06/24/18 97.5 106 18 129/67 93 08:07 (87) 06/24/18 127 08:01 06/24/18 124 04:00 06/24/18 98.2 121 18 121/77 99 03:49 (92) 06/24/18 98.3 125 22 116/80 98 01:07 (92) 06/24/18 151 00:34 06/24/18 116 00:00 06/23/18 113 20:01 06/23/18 98.4 127 21 108/73 92 19:35 (85) 06/23/18 124 16:00 06/23/18 98.2 118 20 111/73 97 Room Air 15:46 (86) 06/23/18 123 12:00 06/23/18 98.5 122 20 117/82 97 Room Air 11:07 (94) 06/23/18 128 08:00 06/23/18 97.9 129 20 108/77 95 Room Air 07:36 (87) 06/23/18 130 04:22 06/23/18 97.6 116 18 113/73 95 04:02 (86) 06/23/18 134 00:14 06/22/18 97.8 107 17 107/66 96 23:55 (80) 06/22/18 130 20:12 06/22/18 97.1 110 18 114/70 95 20:08 (85) 06/22/18 104 16:24 06/22/18 96.9 103 17 104/65 94 15:27 (78) 06/22/18 97 12:38 06/22/18 98.0 102 18 109/75 95 11:59 (86) 06/22/18 98.3 110 18 104/61 95 08:28 (75) 06/22/18 103 08:28 06/22/18 103 04:00 06/22/18 98.3 107 18 132/81 95 04:00 (98) 06/22/18 98.2 116 18 103/69 95 00:24 (80) 06/22/18 111 00:00 06/21/18 98.3 112 20 120/70 93 20:00 (87) 06/21/18 110 20:00 06/21/18 123 16:00 06/21/18 98.3 110 19 103/72 95 15:08 (82) 06/21/18 107 12:00 06/21/18 97.8 115 19 112/74 100 11:19 (87) Vital Signs Date Temp Pulse Resp B/P (MAP) Pulse Ox O2 O2 Flow FiO2 Time Delivery Rate 06/24/18 97.5 106 18 129/67 93 08:07 (87) 06/23/18 Room Air 15:46 Intake and Output 06/23/18 06/23/18 06/24/18 1515:00 23:00 07:00 IntakeIntake Total 250 ml 750 ml 700 ml BalanceBalance 250 ml 750 ml 700 ml Constitutional: alert, oriented, well developed Psych: no complaints, nl mood/affect Respiratory: congested cough Cardiovascular: regular rate and rhythm, nl pulses; No edema, No murmurs/extra sounds, No rub Gastrointestinal: soft, nl liver, spleen, non-tender, bowel sounds; No mass, No rebound or guarding Musculoskeletal: nl extremities to inspection, nl gait and stance Extremities: normal pulses; No cyanosis, No clubbing, No edema Neurological: CAD DETAILER II-XII intact, nl mental status, nl speech, nl strength Additional Comments Bedside Glucose - 72 Hours Test 06/21/18 12:28 06/21/18 16:59 06/21/18 20:08 06/22/18 01:44 Bedside 82 209 173 181 Glucose mg/dL (70-220) mg/dL (70-220) mg/dL (70-220) mg/dL (70-220) Test 06/22/18 08:05 06/22/18 12:12 06/22/18 17:40 06/22/18 20:27 Bedside 109 141 255 171 Glucose mg/dL (70-220) mg/dL (70-220) mg/dL (70-220) mg/dL (70-220) H Test 06/23/18 08:05 06/23/18 11:17 06/23/18 17:49 06/23/18 20:39 Bedside 103 92 85 77 Glucose mg/dL (70-220) mg/dL (70-220) mg/dL (70-220) mg/dL (70-220) Test 06/24/18 07:44 Bedside 72 Glucose mg/dL (70-220) Results Result Diagram: 06/22/18 0530 06/22/18 0530 Results 24hrs Laboratory Tests Test 06/23/18 11:17 06/23/18 17:49 06/23/18 20:39 06/24/18 07:44 Bedside Glucose 92 85 77 72 Medications Medication Current Medications Ondansetron HCl (Zofran Inj) 4 mg Q6H PRN IV NAUSEA AND/OR VOMITING Last administered on 06/24/18at 07:55; Admin Dose 4 MG; Start 06/09/18 at 00:30 Ipratropium [place] (Atrovent 0.02% (Neb)) 0.5 mg Q2H RESP THERAPY PRN NEB SHORTNESS OF BREATH Last administered on 06/14/18at 21:38; Admin Dose 0.5 MG; Start 06/09/18 at 00:30 Acetaminophen (Tylenol Liquid) 650 mg Q6H PRN PO PAIN LEVEL 1-3 OR FEVER Last administered on 06/18/18at 05:57; Admin Dose 650 MG; Start 06/09/18 at 00:30 Docusate Sodium (Colace) 100 mg Q12H PRN PO CONSTIPATION; Start 06/09/18 at 00:30 Bisacodyl (Dulcolax) 5 mg DAILY PRN PO CONSTIPATION; Start 06/09/18 at 00:30 Pantoprazole (Protonix Tab) 40 mg DAILY@06 PO Last administered on 06/24/18at 05:57; Admin Dose 40 MG; Start 06/09/18 at 06:00 Diagnostic Test (Pha) (Accu-Chek) 1 ea 02 XX Last administered on 06/22/18at 01:55; Admin Dose 1 EA; Start 06/10/18 at 02:00 Insulin Aspart (Novolog Insulin Pen) NOVOLOG *MILD* ALGORITHM WITH MEALS BEDTIME SC Last administered on 06/22/18 17:48; Admin Dose 3 UNIT; Start 06/09/18 at 18:00 Miscellaneous Information 1 ea NOTE XX ; Start 06/09/18 at 14:30 Glucose (Glutose) 15 gm Q15M PRN PO DECREASED GLUCOSE; Start 06/09/18 at 14:30 Glucose (Glutose) 22.5 gm Q15M PRN PO DECREASED GLUCOSE; Start 06/09/18 at 14:30 Dextrose (D50w Syringe) 25 ml Q15M PRN IV DECREASED GLUCOSE Last administered on 06/15/18at 20:53; Admin Dose 25 ML; Start 06/09/18 at 14:30 Dextrose (D50w Syringe) 50 ml Q15M PRN IV DECREASED GLUCOSE; Start 06/09/18 at 14:30 Glucagon (Glucagen) 1 mg Q15M PRN IM DECREASED GLUCOSE; Start 06/09/18 at 14:30 Glucose (Glutose) 15 gm Q15M PRN BUCCAL DECREASED GLUCOSE; Start 06/09/18 at 14:30 Ferrous Sulfate (Ferrous Sulfate (Ec)) 325 mg DAILY PO Last administered on 06/24/18at 08:33; Admin Dose 325 MG; Start 06/13/18 at 10:30; Stop 08/12/18 at 10:29 Levalbuterol (Xopenex Neb) 1.25 mg Q6H RESP THERAPY PRN HHN sob/wheezing Last administered on 06/14/18at 21:38; Admin Dose 1.25 MG; Start 06/14/18 at 09:00 Guaifenesin/ Dextromethorphan (Mucinex Dm) 1 tab BID PO Last administered on 06/24/18 08:33; Admin Dose 1 TAB; Start 06/14/18 at 09:30 Metformin HCl (Glucophage) 1,000 mg BID WITH MEALS PO Last administered on 06/24/18 07:46; Admin Dose 1,000 MG; Start 06/16/18 at 18:00 Ascorbic Acid (Vitamin C) 500 mg DAILY PO Last administered on 06/24/18 08:33; Admin Dose 500 MG; Start 06/17/18 at 09:00; Stop 08/16/18 at 08:59 Insulin Human NPH (Humulin N) 12 unit DAILY@20 SC Last administered on 06/23/18 20:59; Admin Dose 12 UNIT; Start 06/17/18 at 20:00 Guaifenesin/ Codeine Phosphate (Robitussin Ac Liquid Cup) 5 ml Q4H PRN PO cough Last administered on 06/18/18 20:25; Admin Dose 5 ML; Start 06/18/18 at 12:00 Linezolid (Zyvox) 600 mg BID PO Last administered on 06/24/18 08:33; Admin Dose 600 MG; Start 06/18/18 at 21:00 Fluconazole (Diflucan) 100 mg DAILY PO Last administered on 06/24/18 08:33; Admin Dose 100 MG; Start 06/21/18 at 09:00 Rifampin (Rifampin) 600 mg DAILY PO Last administered on 06/24/18 08:33; Admin Dose 600 MG; Start 06/20/18 at 14:30 Zolpidem Tartrate (Ambien) 10 mg HS PO Last administered on 06/23/18 22:27; Admin Dose 10 MG; Start 06/22/18 at 21:00 Glimepiride (Amaryl) 2 mg AC BREAKFAST DINNER PO ; Start 06/24/18 at 17:30 LUPE VALERA MD Jun 24, 2018 09:41
[2018-06-24] MEDS: EUCERIN 113 GM CR TOP SCH ×2 (11:51→21:02)
--- NOTE | 2018-06-24 15:11 | CONS ---
Consult Date/Type/Reason Admit Date/Time Jun 08, 2018 at 23:53 Initial Consult Date Type of Consultation: Pulm Requesting Provider: ARIS ANDERSEN Date/Time of Note DATE: 06/24/18 TIME: 15:09 Subjective No events overnight. CT chest reviewed. Objective Vitals Vital Signs Date Temp Pulse Resp B/P (MAP) Pulse Ox O2 O2 Flow FiO2 Time Delivery Rate 06/24/18 119 12:01 06/24/18 97.7 19 112/78 97 10:59 (89) 06/23/18 Room Air 15:46 Intake and Output 06/23/18 06/23/18 06/24/18 1515:00 23:00 07:00 IntakeIntake Total 250 ml 750 ml 700 ml BalanceBalance 250 ml 750 ml 700 ml Exam HEENT: Neck supple; no JVD; no LAD CVS: RRR, S1 and S2 CHEST: Occ rhonchi b/l ABD: Soft, NT, + BS EXT: No c/c/e Results/Medications Result Diagram: 06/22/1852906/22/18529 Results 24 hrs Laboratory Tests Test 06/23/18 17:49 06/23/18 20:39 06/24/18 07:44 06/24/18 10:19 Bedside Glucose 85 77 72 Lab Scanned Report REFERENCE LAB Test 06/24/18 11:49 Bedside Glucose 101 Home Meds Unable to Obtain Active Prescriptions or Reported Meds Medications Current Medications Ondansetron HCl (Zofran Inj) 4 mg Q6H PRN IV NAUSEA AND/OR VOMITING Last administered on 06/24/18at 07:55; Admin Dose 4 MG; Start 06/09/18 at 00:30 Ipratropium [place] (Atrovent 0.02% (Neb)) 0.5 mg Q2H RESP THERAPY PRN NEB SHORTNESS OF BREATH Last administered on 06/14/18at 21:38; Admin Dose 0.5 MG; Start 06/09/18 at 00:30 Acetaminophen (Tylenol Liquid) 650 mg Q6H PRN PO PAIN LEVEL 1-3 OR FEVER Last administered on 06/18/18at 05:57; Admin Dose 650 MG; Start 06/09/18 at 00:30 Docusate Sodium (Colace) 100 mg Q12H PRN PO CONSTIPATION; Start 06/09/18 at 00:30 Bisacodyl (Dulcolax) 5 mg DAILY PRN PO CONSTIPATION; Start 06/09/18 at 00:30 Pantoprazole (Protonix Tab) 40 mg DAILY@06 PO Last administered on 06/24/18 05:57; Admin Dose 40 MG; Start 06/09/18 at 06:00 Diagnostic Test (Pha) (Accu-Chek) 1 ea 02 XX Last administered on 06/22/18 01 :55; Admin Dose 1 EA; Start 06/10/18 at 02:00 Insulin Aspart (Novolog Insulin Pen) NOVOLOG *MILD* ALGORITHM WITH MEALS BEDTIME SC Last administered on 06/22/18 17:48; Admin Dose 3 UNIT; Start at 18:00 Miscellaneous Information 1 ea NOTE XX ; Start 06/09/18 at 14:30 Glucose (Glutose) 15 gm Q15M PRN PO DECREASED GLUCOSE; Start 06/09/18 at 14:30 Glucose (Glutose) 22.5 gm Q15M PRN PO DECREASED GLUCOSE; Start 06/09/18 at 14:30 Dextrose (D50w Syringe) 25 ml Q15M PRN IV DECREASED GLUCOSE Last administered on 06/15/18at 20:53; Admin Dose 25 ML; Start 06/09/18 at 14:30 Dextrose (D50w Syringe) 50 ml Q15M PRN IV DECREASED GLUCOSE; Start 06/09/18 at 14:30 Glucagon (Glucagen) 1 mg Q15M PRN IM DECREASED GLUCOSE; Start 06/09/18 at 14:30 Glucose (Glutose) 15 gm Q15M PRN BUCCAL DECREASED GLUCOSE; Start 06/09/18 at 14:30 Ferrous Sulfate (Ferrous Sulfate (Ec)) 325 mg DAILY PO Last administered on 06/24/18 08:33; Admin Dose 325 MG; Start 06/13/18 at 10:30; Stop 08/12/18 at 10:29 Levalbuterol (Xopenex Neb) 1.25 mg Q6H RESP THERAPY PRN HHN sob/wheezing Last administered on 06/14/18at 21:38; Admin Dose 1.25 MG; Start 06/14/18 at 09:00 Guaifenesin/ Dextromethorphan (Mucinex Dm) 1 tab BID PO Last administered on 06/24/18 08:33; Admin Dose 1 TAB; Start 06/14/18 at 09:30 Metformin HCl (Glucophage) 1,000 mg BID WITH MEALS PO Last administered on 06/24/18 07:46; Admin Dose 1,000 MG; Start 06/16/18 at 18:00 Ascorbic Acid (Vitamin C) 500 mg DAILY PO Last administered on 06/24/18 08:33; Admin Dose 500 MG; Start 06/17/18 at 09:00; Stop 08/16/18 at 08:59 Insulin Human NPH (Humulin N) 12 unit DAILY@20 SC Last administered on 06/23/18 20:59; Admin Dose 12 UNIT; Start 06/17/18 at 20:00 Guaifenesin/ Codeine Phosphate (Robitussin Ac Liquid Cup) 5 ml Q4H PRN PO cough Last administered on 06/18/18 20:25; Admin Dose 5 ML; Start 06/18/18 at 12:00 Linezolid (Zyvox) 600 mg BID PO Last administered on 06/24/18 08:33; Admin Dose 600 MG; Start 06/18/18 at 21:00 Fluconazole (Diflucan) 100 mg DAILY PO Last administered on 06/24/18 08:33; Admin Dose 100 MG; Start 06/21/18 at 09:00 Rifampin (Rifampin) 600 mg DAILY PO Last administered on 06/24/18 08:33; Admin Dose 600 MG; Start 06/20/18 at 14:30 Zolpidem Tartrate (Ambien) 10 mg HS PO Last administered on 06/23/18 22:27; Admin Dose 10 MG; Start 06/22/18 at 21:00 Glimepiride (Amaryl) 2 mg AC BREAKFAST DINNER PO ; Start 06/24/18 at 17:30 Multi-Ingredient Ointment (Eucerin Cream) 1 applic BID TOP Last administered on 06/24/18 11:51; Admin Dose 1 APPLIC; Start 06/24/18 at 10:00 Assessment/Plan Assessment/Plan (Daily) IMP: 1. Multifocal airspace opacities--> now evolution of cavitary nodules--findings concerning for septic pulmonary emboli RECS: 1. Abx per ID 2. TTE: and if negative BITA. KIA FUNK MD Jun 24, 2018 15:11
--- NOTE | 2018-06-24 15:17 | CONS ---
Assessment/Plan Assessment/Plan Hospital Course (Demo Recall) All noted, nad AFB smears negative 3 sets Microbiology: Blood culture on June 08 grew MRSA, repeat blood cultures negative, sputum culture on June 16 grew Talia albicans and MRSA. Serology for HIV negative Antimicrobials: Zyvox Rifampin Diflucan Physical examination: Well-developed middle-aged woman who is alert in no distress. Head atraumatic normocephalic sclera nonicteric. Neck is supple chest rise symmetrical breath sounds diminished bases. Heart S1-S2. Abdomen soft bowel sounds present. Extremities without cyanosis. Assessment: 1. Resolving sepsis 2. MRSA bacteremia on admission 3. Necrotizing MRSA pneumonia with areas of cavitation per CT ?septic emboli 4. Homelessness 5. Poorly controlled diabetes 6. History of recent meth amphetamine abuse Plan: Clinically stable, pulmonary rec-s noted, consider BITA Consultation Date/Type/Reason Admit Date/Time Jun 08, 2018 at 23:53 Initial Consult Date Type of Consult id Requesting Provider: ARIS ANEDRSEN Date/Time of Note DATE: 06/24/18 TIME: 15:15 Exam/Review of Systems Exam Vitals Vital Signs Date Temp Pulse Resp B/P (MAP) Pulse Ox O2 O2 Flow FiO2 Time Delivery Rate 06/24/18 119 12:01 06/24/18 97.7 19 112/78 97 10:59 (89) 06/23/18 Room Air 15:46 Intake and Output 06/23/18 06/23/18 06/24/18 1515:00 23:00 07:00 IntakeIntake Total 250 ml 750 ml 700 ml BalanceBalance 250 ml 750 ml 700 ml Results Result Diagram: 06/22/18 0506/22/18 0530 Results 24hrs Laboratory Tests Test 06/23/18 17:49 06/23/18 20:39 06/24/18 07:44 06/24/18 10:19 Bedside Glucose 85 77 72 Lab Scanned Report REFERENCE LAB Test 06/24/18 11:49 Bedside Glucose 101 Medications Medication Current Medications Ondansetron HCl (Zofran Inj) 4 mg Q6H PRN IV NAUSEA AND/OR VOMITING Last administered on 06/24/18at 07:55; Admin Dose 4 MG; Start 06/09/18 at 00:30 Ipratropium [place] (Atrovent 0.02% (Neb)) 0.5 mg Q2H RESP THERAPY PRN NEB SHORTNESS OF BREATH Last administered on 06/14/18at 21:38; Admin Dose 0.5 MG; Start 06/09/18 at 00:30 Acetaminophen (Tylenol Liquid) 650 mg Q6H PRN PO PAIN LEVEL 1-3 OR FEVER Last administered on 06/18/18 05:57; Admin Dose 650 MG; Start 06/09/18 at 00:30 Docusate Sodium (Colace) 100 mg Q12H PRN PO CONSTIPATION; Start 06/09/18 at 00:30 Bisacodyl (Dulcolax) 5 mg DAILY PRN PO CONSTIPATION; Start 06/09/18 at 00:30 Pantoprazole (Protonix Tab) 40 mg DAILY@06 PO Last administered on 06/24/18 05:57; Admin Dose 40 MG; Start 06/09/18 at 06:00 Diagnostic Test (Pha) (Accu-Chek) 1 ea 02 XX Last administered on 06/22/18at 01:55; Admin Dose 1 EA; Start 06/10/18 at 02:00 Insulin Aspart (Novolog Insulin Pen) NOVOLOG *MILD* ALGORITHM WITH MEALS BEDTIME SC Last administered on 06/22/18 17:48; Admin Dose 3 UNIT; Start 06/09/18 at 18:00 Miscellaneous Information 1 ea NOTE XX ; Start 06/09/18 at 14:30 Glucose (Glutose) 15 gm Q15M PRN PO DECREASED GLUCOSE; Start 06/09/18 at 14:30 Glucose (Glutose) 22.5 gm Q15M PRN PO DECREASED GLUCOSE; Start 06/09/18 at 14:30 Dextrose (D50w Syringe) 25 ml Q15M PRN IV DECREASED GLUCOSE Last administered on 06/15/18at 20:53; Admin Dose 25 ML; Start 06/09/18 at 14:30 Dextrose (D50w Syringe) 50 ml Q15M PRN IV DECREASED GLUCOSE; Start 06/09/18 at 14:30 Glucagon (Glucagen) 1 mg Q15M PRN IM DECREASED GLUCOSE; Start 06/09/18 at 14:30 Glucose (Glutose) 15 gm Q15M PRN BUCCAL DECREASED GLUCOSE; Start 06/09/18 at 14:30 Ferrous Sulfate (Ferrous Sulfate (Ec)) 325 mg DAILY PO Last administered on 08:33; Admin Dose 325 MG; Start 06/13/18 at 10:30; Stop 08/12/18 at 10:29 Levalbuterol (Xopenex Neb) 1.25 mg Q6H RESP THERAPY PRN HHN sob/wheezing Last administered on 06/14/18 21:38; Admin Dose 1.25 MG; Start 06/14/18 at 09:00 Guaifenesin/ Dextromethorphan (Mucinex Dm) 1 tab BID PO Last administered on 06/24/18 08:33; Admin Dose 1 TAB; Start 06/14/18 at 09:30 Metformin HCl (Glucophage) 1,000 mg BID WITH MEALS PO Last administered on 06/24/18 07:46; Admin Dose 1,000 MG; Start 06/16/18 at 18:00 Ascorbic Acid (Vitamin C) 500 mg DAILY PO Last administered on 06/24/18 08:33; Admin Dose 500 MG; Start 06/17/18 at 09:00; Stop 08/16/18 at 08:59 Insulin Human NPH (Humulin N) 12 unit DAILY@20 SC Last administered on 06/23/18 20:59; Admin Dose 12 UNIT; Start 06/17/18 at 20:00 Guaifenesin/ Codeine Phosphate (Robitussin Ac Liquid Cup) 5 ml Q4H PRN PO cough Last administered on 06/18/18 20:25; Admin Dose 5 ML; Start 06/18/18 at 12:00 Linezolid (Zyvox) 600 mg BID PO Last administered on 06/24/18 08:33; Admin Dose 600 MG; Start 06/18/18 at 21:00 Fluconazole (Diflucan) 100 mg DAILY PO Last administered on 06/24/18 08:33; Admin Dose 100 MG; Start 06/21/18 at 09:00 Rifampin (Rifampin) 600 mg DAILY PO Last administered on 06/24/18 08:33; Admin Dose 600 MG; Start 06/20/18 at 14:30 Zolpidem Tartrate (Ambien) 10 mg HS PO Last administered on 06/23/18 22:27; Admin Dose 10 MG; Start 06/22/18 at 21:00 Glimepiride (Amaryl) 2 mg AC BREAKFAST DINNER PO ; Start 06/24/18 at 17:30 Multi-Ingredient Ointment (Eucerin Cream) 1 applic BID TOP Last administered on 06/24/18at 11:51; Admin Dose 1 APPLIC; Start 06/24/18 at 10:00 JOSE GOVEA NP Jun 24, 2018 15:16
[2018-06-24] MEDS: GLIMEPIRIDE 2 MG TAB PO SCH (18:51)
[2018-06-24] MEDS: NPH, HUMAN INSULIN ISOPHANE 3ML VIAL SC SCH (20:30)
[2018-06-24] MEDS: ZOLPIDEM 5 MG TAB PO SCH (23:44)
[2018-06-25] VITALS (12 sets, daily range): BP systolic 92–120; BP diastolic 57–80; PULSE 91–119; RESP 17–20
[2018-06-25] MEDS: ACCU-CHEK XX SCH (01:57)
[2018-06-25] MEDS: PANTOPRAZOLE (EC) 40 MG TAB PO SCH (06:37)
[2018-06-25] MEDS: GLIMEPIRIDE 2 MG TAB PO SCH (06:45)
--- NOTE | 2018-06-25 09:01 | PN ---
Date/Time of Note Date/Time of Note DATE: 06/25/18 TIME: 09:01 Assessment/Plan VTE Prophylaxis Risk score (from Ns)>0 risk: 1 SCD applied (from Ns): No SCD contraindicated: low risk/ambulating Pharmacological prophylaxis: NA/contraindicated Pharm contraindication: low risk/ambulating Lines/Catheters IV [facility]from [facility] Urinary Cath still in place: No Assessment/Plan Assessment/Plan 1. MRSA bacteremia - Repeat blood culture negative. Remains afebrile with nl WBC. - ID on board and appreciate recommendations. Continue on current antibiotics 2. Tachycardia - most likely secondary to pulmonary process 3. Poorly controlled diabetes - A1c noted - continues to fluctuate based on diet compliance - Admits to eating outside food since current diet is very bland. Discussed need to follow low sugar, low carb diet - Endocrinology on board and appreciate recommendations. Continue on current insulin and glimepiride. 4. Extensive bilateral multilobar pneumonia - Patient found with MRSA in sputum and CT scan showing cavitating lesions but improvement in bilateral infiltrate - Pulm on board and continue current treatment. Cocci studies still pending. After review of recent CT scan concern for septic emboli. Repeat ECHO ordered with focus on tricuspid valve to evaluate for vegetation. If negative, will need BITA - Repeat CT scan performed this am showing "Multifocal bilateral areas of p neumonia are again present and have diminished in overall size however there is interval development of multiple foci of lucencies within the areas of consolidation suggestive for bronchiectasis or developing small cavitary lesions." - ID recommendations appreciated 5. Homelessness - SW on board - patient states she plans to go to rehab following discharge 6. History of meth abuse - Patient states last use was 2 weeks prior to admission. Counseled on cessation. 7. Tobacco use - Cessation advised. 8. Iron Deficient anemia. - Continue oral iron. - H&H stable. 9. Mild asthma. - Currently stable - nebs PRN 10. Disposition - Awaiting Cocci serology. Will order repeat ECHO to evaluate for vegetation. If negative, will consult cardio for possible BITA Result Diagram: 06/25/18 0526 06/25/18 05 Results 24hrs Laboratory Tests Test 06/24/18 10:19 06/24/18 11:49 06/24/18 16:59 06/24/18 20:56 Lab Scanned Report REFERENCE LAB Bedside Glucose 101 108 144 Test 06/25/18 01:57 06/25/18 05:26 06/25/18 06:44 06/25/18 07:58 Bedside Glucose 115 220 249 H White Blood Count 5.2 Red Blood Count 4.04 L Hemoglobin 11.4 L Hematocrit 35.9 L Mean Corpuscular 88.9 Volume Mean Corpuscular 28.2 L Hemoglobin Mean Corpuscular 31.8 L Hemoglobin Concent Red Cell Distribution 16.8 H Width Platelet Count 773 H Mean Platelet Volume 9.7 Immature Granulocytes 0.400 % Neutrophils % 47.2 Lymphocytes % 42.3 Monocytes % 5.8 Eosinophils % 3.1 Basophils % 1.2 Nucleated Red Blood 0.0 Cells % Immature Granulocytes 0.020 # Neutrophils # 2.5 Lymphocytes # 2.2 Monocytes # 0.3 Eosinophils # 0.2 Basophils # 0.1 Nucleated Red Blood 0.0 Cells # Sodium Level 140 Potassium Level 3.9 Chloride Level 103 Carbon Dioxide Level 25 Anion Gap 12 Blood Urea Nitrogen 9 Creatinine 0.42 L Glucose Level 172 Calcium Level 9.6 Phosphorus Level 4.0 Magnesium Level 1.7 Albumin 3.8 Subjective 24 Hr Interval Summary Free Text/Dictation Patient sleeping this am and in no acute distress. Discuss need to reevaluate TTE to look for vegetation given suspicion for septic emboli and change in treatment course if found. Still with chest discomfort with coughing. Exam/Review of Systems Exam Vitals Vital Signs Date Temp Pulse Resp B/P (MAP) Pulse Ox O2 O2 Flow FiO2 Time Delivery Rate 06/25/18 98.6 118 17 92/58 (69) 98 07:42 06/23/18 Room Air 15:46 Intake and Output 06/24/18 06/24/18 06/25/18 1515:00 23:00 07:00 IntakeIntake Total 360 ml 540 ml 240 ml BalanceBalance 360 ml 540 ml 240 ml Exam General: Patient sleeping but easily arousable. no acute distress Neck: Supple Respiratory: diminished bilaterally. no wheezing appreciated Cardiovascular: S1, S2, regular rhythm, tachycardia, no obvious murmurs Gastrointestinal: non-tender to palpation, bowel sounds heard. Neurological: Moves all extremities spontaneously Skin: No new skin lesions Results Results 24hrs Laboratory Tests Test 06/24/18 10:19 06/24/18 11:49 06/24/18 16:59 06/24/18 20:56 Lab Scanned Report REFERENCE LAB Bedside Glucose 101 108 144 Test 06/25/18 01:57 06/25/18 05:26 06/25/18 06:44 06/25/18 07:58 Bedside Glucose 115 220 249 H White Blood Count 5.2 Red Blood Count 4.04 L Hemoglobin 11.4 L Hematocrit 35.9 L Mean Corpuscular 88.9 Volume Mean Corpuscular 28.2 L Hemoglobin Mean Corpuscular 31.8 L Hemoglobin Concent Red Cell Distribution 16.8 H Width Platelet Count 773 H Mean Platelet Volume 9.7 Immature Granulocytes 0.400 % Neutrophils % 47.2 Lymphocytes % 42.3 Monocytes % 5.8 Eosinophils % 3.1 Basophils % 1.2 Nucleated Red Blood 0.0 Cells % Immature Granulocytes 0.020 # Neutrophils # 2.5 Lymphocytes # 2.2 Monocytes # 0.3 Eosinophils # 0.2 Basophils # 0.1 Nucleated Red Blood 0.0 Cells # Sodium Level 140 Potassium Level 3.9 Chloride Level 103 Carbon Dioxide Level 25 Anion Gap 12 Blood Urea Nitrogen 9 Creatinine 0.42 L Glucose Level 172 Calcium Level 9.6 Phosphorus Level 4.0 Magnesium Level 1.7 Albumin 3.8 Medications Medication Current Medications Ondansetron HCl (Zofran Inj) 4 mg Q6H PRN IV NAUSEA AND/OR VOMITING Last administered on 06/24/18at 22:41; Admin Dose 4 MG; Start 06/09/18 at 00:30 Ipratropium [place] (Atrovent 0.02% (Neb)) 0.5 mg Q2H RESP THERAPY PRN NEB SHORTNESS OF BREATH Last administered on 06/14/18at 21:38; Admin Dose 0.5 MG; Start 06/09/18 at 00:30 Acetaminophen (Tylenol Liquid) 650 mg Q6H PRN PO PAIN LEVEL 1-3 OR FEVER Last administered on 06/18/18at 05:57; Admin Dose 650 MG; Start 06/09/18 at 00:30 Docusate Sodium (Colace) 100 mg Q12H PRN PO CONSTIPATION; Start 06/09/18 at 00:30 Bisacodyl (Dulcolax) 5 mg DAILY PRN PO CONSTIPATION; Start 06/09/18 at 00:30 Pantoprazole (Protonix Tab) 40 mg DAILY@06 PO Last administered on 06/25/18at 06:37; Admin Dose 40 MG; Start 06/09/18 at 06:00 Diagnostic Test (Pha) (Accu-Chek) 1 ea 02 XX Last administered on 06/22/18 01:55; Admin Dose 1 EA; Start 06/10/18 at 02:00 Insulin Aspart (Novolog Insulin Pen) NOVOLOG *MILD* ALGORITHM WITH MEALS BEDTIME SC Last administered on 06/22/18 17:48; Admin Dose 3 UNIT; Start 06/09/18 at 18:00 Miscellaneous Information 1 ea NOTE XX ; Start 06/09/18 at 14:30 Glucose (Glutose) 15 gm Q15M PRN PO DECREASED GLUCOSE; Start 06/09/18 at 14:30 Glucose (Glutose) 22.5 gm Q15M PRN PO DECREASED GLUCOSE; Start 06/09/18 at 14:30 Dextrose (D50w Syringe) 25 ml Q15M PRN IV DECREASED GLUCOSE Last administered on 06/15/18at 20:53; Admin Dose 25 ML; Start 06/09/18 at 14:30 Dextrose (D50w Syringe) 50 ml Q15M PRN IV DECREASED GLUCOSE; Start 06/09/18 at 14:30 Glucagon (Glucagen) 1 mg Q15M PRN IM DECREASED GLUCOSE; Start 06/09/18 at 14:30 Glucose (Glutose) 15 gm Q15M PRN BUCCAL DECREASED GLUCOSE; Start 06/09/18 at 14:30 Ferrous Sulfate (Ferrous Sulfate (Ec)) 325 mg DAILY PO Last administered on 06/24/18 08:33; Admin Dose 325 MG; Start 06/13/18 at 10:30; Stop 08/12/18 at 10:29 Levalbuterol (Xopenex Neb) 1.25 mg Q6H RESP THERAPY PRN HHN sob/wheezing Last administered on 06/14/18at 21:38; Admin Dose 1.25 MG; Start 06/14/18 at 09:00 Guaifenesin/ Dextromethorphan (Mucinex Dm) 1 tab BID PO Last administered on 06/24/18 20:58; Admin Dose 1 TAB; Start 06/14/18 at 09:30 Metformin HCl (Glucophage) 1,000 mg BID WITH MEALS PO Last administered on 06/24/18 17:30; Admin Dose 1,000 MG; Start 06/16/18 at 18:00 Ascorbic Acid (Vitamin C) 500 mg DAILY PO Last administered on 06/24/18 08:33; Admin Dose 500 MG; Start 06/17/18 at 09:00; Stop 08/16/18 at 08:59 Insulin Human NPH (Humulin N) 12 unit DAILY@20 SC Last administered on 06/24/18 20:30; Admin Dose 12 UNIT; Start 06/17/18 at 20:00 Guaifenesin/ Codeine Phosphate (Robitussin Ac Liquid Cup) 5 ml Q4H PRN PO cough Last administered on 06/18/18 20:25; Admin Dose 5 ML; Start 06/18/18 at 12:00 Linezolid (Zyvox) 600 mg BID PO Last administered on 06/24/18 20:58; Admin Dose 600 MG; Start 06/18/18 at 21:00 Fluconazole (Diflucan) 100 mg DAILY PO Last administered on 06/24/18 08:33; Admin Dose 100 MG; Start 06/21/18 at 09:00 Rifampin (Rifampin) 600 mg DAILY PO Last administered on 06/24/18 08:33; Admin Dose 600 MG; Start 06/20/18 at 14:30 Zolpidem Tartrate (Ambien) 10 mg HS PO Last administered on 06/24/18 23:44; Admin Dose 10 MG; Start 06/22/18 at 21:00 Glimepiride (Amaryl) 2 mg AC BREAKFAST DINNER PO Last administered on 06/25/18 06:45; Admin Dose 2 MG; Start 06/24/18 at 17:30 Multi-Ingredient Ointment (Eucerin Cream) 1 applic BID TOP Last administered on 06/24/18 21:02; Admin Dose 1 APPLIC; Start 06/24/18 at 10:00 DAVE HAMMONDS MD Jun 25, 2018 09:01
[2018-06-25] MEDS: RIFAMPIN 300 MG CAP PO SCH (09:03)
[2018-06-25] MEDS: ASCORBIC ACID 500 MG TAB PO SCH (09:03)
[2018-06-25] MEDS: ZYVOX 600 MG TAB PO SCH ×2 (09:03→20:21)
[2018-06-25] MEDS: FERROUS SULFATE (EC) 325 MG TAB PO SCH (09:03)
[2018-06-25] MEDS: metFORMIN 500 MG TAB PO SCH ×2 (09:03→17:38)
[2018-06-25] MEDS: GUAIFENESIN/DM (SR) TAB PO SCH ×2 (09:04→20:21)
[2018-06-25] MEDS: FLUCONAZOLE 100 MG TAB PO SCH (09:04)
[2018-06-25] MEDS: ONDANSETRON 4 MG INJ IV PRN (09:15)
[2018-06-25] MEDS: INSULIN ASPART [NOVOLOG] 3 ML PEN SC SCH ×4 (09:15→20:20)
[2018-06-25] MEDS: EUCERIN 113 GM CR TOP SCH ×2 (10:08→20:30)
--- NOTE | 2018-06-25 12:09 | CONS ---
Assessment/Plan Assessment/Plan Problems: (1) Diabetes mellitus type 2 in nonobese Status: Chronic Comment: BG excellent yesterday but elevated this am. Back down below goal range w/ use of correction this am. Will increase glimepiride to 4 mg in the evening but cont. 2 mg qam. Cont. other T2DM meds. Cont. to monitor while in house. Consultation Date/Type/Reason Admit Date/Time Jun 08, 2018 at 23:53 Initial Consult Date 06/09/18 Type of Consult Endocrinology Reason for Consultation DKA Requesting Provider: ARIS ANDERSEN Date/Time of Note DATE: 06/25/18 TIME: 12:05 24 HR Interval Summary Constitutional: no complaints, improved; No poor po Detailed Summary Respiratory: cough, pleuritic pain, shortness of breath (worse when trying to take deep breath) Cardiovascular: chest pain Gastrointestinal: no complaints; No decreased appetite, No nausea, No vomiting Genitourinary: no complaints Musculoskeletal: no complaints Neurologic: no complaints Exam/Review of Systems Exam Vitals VS - Last 72 Hours, by Label Date Temp Pulse Resp B/P (MAP) Pulse Ox O2 O2 Flow FiO2 Time Delivery Rate 06/25/18 98.0 91 20 98/57 (71) 98 11:28 06/25/18 112 08:01 06/25/18 98.6 118 17 92/58 (69) 98 07:42 06/25/18 119 04:00 06/25/18 97.9 98 19 110/69 93 03:51 (83) 06/25/18 118 00:00 06/24/18 98.3 121 17 131/66 100 23:33 (87) 06/24/18 119 20:00 06/24/18 98.2 119 20 123/62 98 19:37 (82) 06/24/18 136 16:01 06/24/18 98.7 117 19 121/77 98 15:23 (92) 06/24/18 119 12:01 06/24/18 97.7 107 19 112/78 97 10:59 (89) 06/24/18 97.5 106 18 129/67 93 08:07 (87) 06/24/18 127 08:01 06/24/18 124 04:00 06/24/18 98.2 121 18 121/77 99 03:49 (92) 06/24/18 98.3 125 22 116/80 98 01:07 (92) 06/24/18 151 00:34 06/24/18 116 00:00 06/23/18 113 20:01 06/23/18 98.4 127 21 108/73 92 19:35 (85) 06/23/18 124 16:00 06/23/18 98.2 118 20 111/73 97 Room Air 15:46 (86) 06/23/18 123 12:00 06/23/18 98.5 122 20 117/82 97 Room Air 11:07 (94) 06/23/18 128 08:00 06/23/18 97.9 129 20 108/77 95 Room Air 07:36 (87) 06/23/18 130 04:22 06/23/18 97.6 116 18 113/73 95 04:02 (86) 06/23/18 134 00:14 06/22/18 97.8 107 17 107/66 96 23:55 (80) 06/22/18 130 20:12 06/22/18 97.1 110 18 114/70 95 20:08 (85) 06/22/18 104 16:24 06/22/18 96.9 103 17 104/65 94 15:27 (78) 06/22/18 97 12:38 Vital Signs Date Temp Pulse Resp B/P (MAP) Pulse Ox O2 O2 Flow FiO2 Time Delivery Rate 06/25/18 98.0 91 20 98/57 (71) 98 11:28 06/23/18 Room Air 15:46 Intake and Output 06/24/18 06/24/18 06/25/18 1414:59 22:59 06:59 IntakeIntake Total 360 ml 540 ml 240 ml BalanceBalance 360 ml 540 ml 240 ml Constitutional: alert, oriented, well developed Psych: no complaints, nl mood/affect Respiratory: clear to auscultation, normal air movement Cardiovascular: regular rate and rhythm, nl pulses; No edema, No murmurs/extra sounds, No rub Gastrointestinal: soft, nl liver, spleen, non-tender, bowel sounds; No mass, No rebound or guarding Musculoskeletal: nl extremities to inspection Extremities: normal pulses; No cyanosis, No clubbing, No edema Neurological: [employer] II-XII intact, nl mental status, nl speech, nl strength Additional Comments Bedside Glucose - 72 Hours Test 06/22/18 12:12 06/22/18 17:40 06/22/18 20:27 06/23/18 08:05 Bedside 141 255 171 103 Glucose mg/dL (70-220) mg/dL (70-220) mg/dL (70-220) mg/dL (70-220) H Test 06/23/18 11:17 06/23/18 17:49 06/23/18 20:39 06/24/18 07:44 Bedside 92 85 77 72 Glucose mg/dL (70-220) mg/dL (70-220) mg/dL (70-220) mg/dL (70-220) Test 06/24/18 11:49 06/24/18 16:59 06/24/18 20:56 06/25/18 01:57 Bedside 101 108 144 115 Glucose mg/dL (70-220) mg/dL (70-220) mg/dL (70-220) mg/dL (70-220) Test 06/25/18 06:44 06/25/18 07:58 06/25/18 12:00 Bedside 220 249 80 Glucose mg/dL (70-220) mg/dL (70-220) mg/dL (70-220) H Results Result Diagram: 06/25/18 0526 06/25/18 0526 Results 24hrs Laboratory Tests Test 06/24/18 16:59 06/24/18 20:56 06/25/18 01:57 06/25/18 05:26 Bedside Glucose 108 144 115 White Blood Count 5.2 Red Blood Count 4.04 L Hemoglobin 11.4 L Hematocrit 35.9 L Mean Corpuscular Volume 88.9 Mean Corpuscular 28.2 L Hemoglobin Mean Corpuscular 31.8 L Hemoglobin Concent Red Cell Distribution 16.8 H Width Platelet Count 773 H Mean Platelet Volume 9.7 Immature Granulocytes % 0.400 Neutrophils % 47.2 Lymphocytes % 42.3 Monocytes % 5.8 Eosinophils % 3.1 Basophils % 1.2 Nucleated Red Blood 0.0 Cells % Immature Granulocytes # 0.020 Neutrophils # 2.5 Lymphocytes # 2.2 Monocytes # 0.3 Eosinophils # 0.2 Basophils # 0.1 Nucleated Red Blood 0.0 Cells # Sodium Level 140 Potassium Level 3.9 Chloride Level 103 Carbon Dioxide Level 25 Anion Gap 12 Blood Urea Nitrogen 9 Creatinine 0.42 L Glucose Level 172 Calcium Level 9.6 Phosphorus Level 4.0 Magnesium Level 1.7 Albumin 3.8 Test 06/25/18 06:44 06/25/18 07:58 06/25/18 12:00 Bedside Glucose 220 249 H 80 Medications Medication Current Medications Ondansetron HCl (Zofran Inj) 4 mg Q6H PRN IV NAUSEA AND/OR VOMITING Last administered on 06/25/18 09:15; Admin Dose 4 MG; Start 06/09/18 at 00:30 Ipratropium [place] (Atrovent 0.02% (Neb)) 0.5 mg Q2H RESP THERAPY PRN NEB SHORTNESS OF BREATH Last administered on 06/14/18at 21:38; Admin Dose 0.5 MG; Start 06/09/18 at 00:30 Acetaminophen (Tylenol Liquid) 650 mg Q6H PRN PO PAIN LEVEL 1-3 OR FEVER Last administered on 06/18/18 05:57; Admin Dose 650 MG; Start 06/09/18 at 00:30 Docusate Sodium (Colace) 100 mg Q12H PRN PO CONSTIPATION; Start 06/09/18 at 00:30 Bisacodyl (Dulcolax) 5 mg DAILY PRN PO CONSTIPATION; Start 06/09/18 at 00:30 Pantoprazole (Protonix Tab) 40 mg DAILY@06 PO Last administered on 06/25/18 06:37; Admin Dose 40 MG; Start 06/09/18 at 06:00 Diagnostic Test (Pha) (Accu-Chek) 1 ea 02 XX Last administered on 06/22/18at 01:55; Admin Dose 1 EA; Start 06/10/18 at 02:00 Insulin Aspart (Novolog Insulin Pen) NOVOLOG *MILD* ALGORITHM WITH MEALS BEDTIME SC Last administered on 06/25/18 09:15; Admin Dose 3 UNIT; Start 06/09/18 at 18:00 Miscellaneous Information 1 ea NOTE XX ; Start 06/09/18 at 14:30 Glucose (Glutose) 15 gm Q15M PRN PO DECREASED GLUCOSE; Start 06/09/18 at 14:30 Glucose (Glutose) 22.5 gm Q15M PRN PO DECREASED GLUCOSE; Start 06/09/18 at 14:30 Dextrose (D50w Syringe) 25 ml Q15M PRN IV DECREASED GLUCOSE Last administered on 06/15/18 20:53; Admin Dose 25 ML; Start 06/09/18 at 14:30 Dextrose (D50w Syringe) 50 ml Q15M PRN IV DECREASED GLUCOSE; Start 06/09/18 at 14:30 Glucagon (Glucagen) 1 mg Q15M PRN IM DECREASED GLUCOSE; Start 06/09/18 at 14:30 Glucose (Glutose) 15 gm Q15M PRN BUCCAL DECREASED GLUCOSE; Start 06/09/18 at 14:30 Ferrous Sulfate (Ferrous Sulfate (Ec)) 325 mg DAILY PO Last administered on 06/25/18 09:03; Admin Dose 325 MG; Start 06/13/18 at 10:30; Stop 08/12/18 at 10:29 Levalbuterol (Xopenex Neb) 1.25 mg Q6H RESP THERAPY PRN HHN sob/wheezing Last administered on 06/14/18 21:38; Admin Dose 1.25 MG; Start 06/14/18 at 09:00 Guaifenesin/ Dextromethorphan (Mucinex Dm) 1 tab BID PO Last administered on 06/25/18 09:04; Admin Dose 1 TAB; Start 06/14/18 at 09:30 Metformin HCl (Glucophage) 1,000 mg BID WITH MEALS PO Last administered on 06/25/18 09:03; Admin Dose 1,000 MG; Start 06/16/18 at 18:00 Ascorbic Acid (Vitamin C) 500 mg DAILY PO Last administered on 06/25/18 09:03; Admin Dose 500 MG; Start 06/17/18 at 09:00; Stop 08/16/18 at 08:59 Insulin Human NPH (Humulin N) 12 unit DAILY@20 SC Last administered on 06/24/18 20:30; Admin Dose 12 UNIT; Start 06/17/18 at 20:00 Guaifenesin/ Codeine Phosphate (Robitussin Ac Liquid Cup) 5 ml Q4H PRN PO cough Last administered on 06/18/18 20:25; Admin Dose 5 ML; Start 06/18/18 at 12:00 Linezolid (Zyvox) 600 mg BID PO Last administered on 06/25/18 09:03; Admin Dose 600 MG; Start 06/18/18 at 21:00 Fluconazole (Diflucan) 100 mg DAILY PO Last administered on 06/25/18at 09:04; Admin Dose 100 MG; Start 06/21/18 at 09:00 Rifampin (Rifampin) 600 mg DAILY PO Last administered on 06/25/18at 09:03; Admin Dose 600 MG; Start 06/20/18 at 14:30 Zolpidem Tartrate (Ambien) 10 mg HS PO Last administered on 06/24/18at 23:44; Admin Dose 10 MG; Start 06/22/18 at 21:00 Multi-Ingredient Ointment (Eucerin Cream) 1 applic BID TOP Last administered on 06/25/18at 10:08; Admin Dose 1 APPLIC; Start 06/24/18 at 10:00 Glimepiride (Amaryl) 4 mg AC BREAKFAST DINNER PO ; Start 06/25/18 at 17:30 LUPE VALERA MD Jun 25, 2018 12:09
--- NOTE | 2018-06-25 13:25 | CONS ---
Consult Date/Type/Reason Admit Date/Time Jun 08, 2018 at 23:53 Initial Consult Date Type of Consultation: Pulm Requesting Provider: ARIS ANDERSEN Date/Time of Note DATE: 06/25/18 TIME: 13:24 Subjective No events. Still c/o with pleurisy. Objective Vitals Vital Signs Date Temp Pulse Resp B/P (MAP) Pulse Ox O2 O2 Flow FiO2 Time Delivery Rate 06/25/18 98.0 91 20 98/57 (71) 98 11:28 06/23/18 Room Air 15:46 Intake and Output 06/24/18 06/24/18 06/25/18 1515:00 23:00 07:00 IntakeIntake Total 360 ml 540 ml 240 ml BalanceBalance 360 ml 540 ml 240 ml Exam HEENT: Neck supple; no JVD; no LAD CVS: RRR, S1 and S2 CHEST: Occ rhonchi b/l ABD: Soft, NT, + BS EXT: No c/c/e Results/Medications Result Diagram: 06/25/1852506/25/18 05 Results 24 hrs Laboratory Tests Test 06/24/18 16:59 06/24/18 20:56 06/25/18 01:57 06/25/18 05:26 Bedside Glucose 108 144 115 White Blood Count 5.2 Red Blood Count 4.04 L Hemoglobin 11.4 L Hematocrit 35.9 L Mean Corpuscular Volume 88.9 Mean Corpuscular 28.2 L Hemoglobin Mean Corpuscular 31.8 L Hemoglobin Concent Red Cell Distribution 16.8 H Width Platelet Count 773 H Mean Platelet Volume 9.7 Immature Granulocytes % 0.400 Neutrophils % 47.2 Lymphocytes % 42.3 Monocytes % 5.8 Eosinophils % 3.1 Basophils % 1.2 Nucleated Red Blood 0.0 Cells % Immature Granulocytes # 0.020 Neutrophils # 2.5 Lymphocytes # 2.2 Monocytes # 0.3 Eosinophils # 0.2 Basophils # 0.1 Nucleated Red Blood 0.0 Cells # Sodium Level 140 Potassium Level 3.9 Chloride Level 103 Carbon Dioxide Level 25 Anion Gap 12 Blood Urea Nitrogen 9 Creatinine 0.42 L Glucose Level 172 Calcium Level 9.6 Phosphorus Level 4.0 Magnesium Level 1.7 Albumin 3.8 Test 06/25/18 06:44 06/25/18 07:58 06/25/18 12:00 Bedside Glucose 220 249 H 80 Home Meds Unable to Obtain Active Prescriptions or Reported Meds Medications Current Medications Ondansetron HCl (Zofran Inj) 4 mg Q6H PRN IV NAUSEA AND/OR VOMITING Last administered on 06/25/18 09:15; Admin Dose 4 MG; Start 06/09/18 at 00:30 Ipratropium [place] (Atrovent 0.02% (Neb)) 0.5 mg Q2H RESP THERAPY PRN NEB SHORTNESS OF BREATH Last administered on 06/14/18 21:38; Admin Dose 0.5 MG; Start 06/09/18 at 00:30 Acetaminophen (Tylenol Liquid) 650 mg Q6H PRN PO PAIN LEVEL 1-3 OR FEVER Last administered on 06/18/18 05:57; Admin Dose 650 MG; Start 06/09/18 at 00:30 Docusate Sodium (Colace) 100 mg Q12H PRN PO CONSTIPATION; Start 06/09/18 at 00:30 Bisacodyl (Dulcolax) 5 mg DAILY PRN PO CONSTIPATION; Start 06/09/18 at 00:30 Pantoprazole (Protonix Tab) 40 mg DAILY@06 PO Last administered on 06/25/18 06:37; Admin Dose 40 MG; Start 06/09/18 at 06:00 Diagnostic Test (Pha) (Accu-Chek) 1 ea 02 XX Last administered on 06/22/18 01:55; Admin Dose 1 EA; Start 06/10/18 at 02:00 Insulin Aspart (Novolog Insulin Pen) NOVOLOG *MILD* ALGORITHM WITH MEALS BEDTIME SC Last administered on 06/25/18 09:15; Admin Dose 3 UNIT; Start at 18:00 Miscellaneous Information 1 ea NOTE XX ; Start 06/09/18 at 14:30 Glucose (Glutose) 15 gm Q15M PRN PO DECREASED GLUCOSE; Start 06/09/18 at 14:30 Glucose (Glutose) 22.5 gm Q15M PRN PO DECREASED GLUCOSE; Start 06/09/18 at 14:30 Dextrose (D50w Syringe) 25 ml Q15M PRN IV DECREASED GLUCOSE Last administered on 06/15/18 20:53; Admin Dose 25 ML; Start 06/09/18 at 14:30 Dextrose (D50w Syringe) 50 ml Q15M PRN IV DECREASED GLUCOSE; Start 06/09/18 at 14:30 Glucagon (Glucagen) 1 mg Q15M PRN IM DECREASED GLUCOSE; Start 06/09/18 at 14:30 Glucose (Glutose) 15 gm Q15M PRN BUCCAL DECREASED GLUCOSE; Start 06/09/18 at 14:30 Ferrous Sulfate (Ferrous Sulfate (Ec)) 325 mg DAILY PO Last administered on 06/25/18 09:03; Admin Dose 325 MG; Start 06/13/18 at 10:30; Stop 08/12/18 at 10:29 Levalbuterol (Xopenex Neb) 1.25 mg Q6H RESP THERAPY PRN HHN sob/wheezing Last administered on 06/14/18 21:38; Admin Dose 1.25 MG; Start 06/14/18 at 09:00 Guaifenesin/ Dextromethorphan (Mucinex Dm) 1 tab BID PO Last administered on 06/25/18 09:04; Admin Dose 1 TAB; Start 06/14/18 at 09:30 Metformin HCl (Glucophage) 1,000 mg BID WITH MEALS PO Last administered on 06/25/18 09:03; Admin Dose 1,000 MG; Start 06/16/18 at 18:00 Ascorbic Acid (Vitamin C) 500 mg DAILY PO Last administered on 06/25/18 09:03; Admin Dose 500 MG; Start 06/17/18 at 09:00; Stop 08/16/18 at 08:59 Insulin Human NPH (Humulin N) 12 unit DAILY@20 SC Last administered on 06/24/18 20:30; Admin Dose 12 UNIT; Start 06/17/18 at 20:00 Guaifenesin/ Codeine Phosphate (Robitussin Ac Liquid Cup) 5 ml Q4H PRN PO cough Last administered on 06/18/18 20:25; Admin Dose 5 ML; Start 06/18/18 at 12:00 Linezolid (Zyvox) 600 mg BID PO Last administered on 06/25/18 09:03; Admin Dose 600 MG; Start 06/18/18 at 21:00 Fluconazole (Diflucan) 100 mg DAILY PO Last administered on 06/25/18 09:04; Admin Dose 100 MG; Start 06/21/18 at 09:00 Rifampin (Rifampin) 600 mg DAILY PO Last administered on 06/25/18at 09:03; Admin Dose 600 MG; Start 06/20/18 at 14:30 Zolpidem Tartrate (Ambien) 10 mg HS PO Last administered on 06/24/18at 23:44; Admin Dose 10 MG; Start 06/22/18 at 21:00 Multi-Ingredient Ointment (Eucerin Cream) 1 applic BID TOP Last administered on 06/25/18at 10:08; Admin Dose 1 APPLIC; Start 06/24/18 at 10:00 Glimepiride (Amaryl) 4 mg QHS PO ; Start 06/25/18 at 21:00 Glimepiride (Amaryl) 2 mg AC BREAKFAST PO ; Start 06/26/18 at 07:00 Assessment/Plan Assessment/Plan (Daily) IMP: 1. Multifocal airspace opacities--> now evolution of cavitary nodules--findings concerning for septic pulmonary emboli. RECS: 1. Abx per ID 2. Would proceed with BITA to evaluate for an endovascular source for SPE KIA FUNK MD Jun 25, 2018 13:25
--- NOTE | 2018-06-25 13:38 | CONS ---
Assessment/Plan Assessment/Plan Hospital Course (Demo Recall) No acute events, awake comfortable no fevers AFB smears negative 3 sets Microbiology: Blood culture on June 08 grew MRSA, repeat blood cultures negative, sputum culture on June 16 grew Talia albicans and MRSA. Serology for HIV negative Antimicrobials: Zyvox Rifampin Diflucan Physical examination: Well-developed middle-aged woman who is alert in no distress. Head atraumatic normocephalic sclera nonicteric. Neck is supple chest rise symmetrical breath sounds diminished bases. Heart S1-S2. Abdomen soft bowel sounds present. Extremities without cyanosis. Assessment: 1. Resolving sepsis 2. MRSA bacteremia on admission 3. Necrotizing MRSA pneumonia with areas of cavitation per CT ?septic emboli 4. Homelessness 5. Poorly controlled diabetes 6. History of recent meth amphetamine abuse Plan: Clinically stable, repeat bld cx neg, 2D ECHo on admission neg, continue a bx, pending BITA Consultation Date/Type/Reason Admit Date/Time Jun 08, 2018 at 23:53 Initial Consult Date Type of Consult id Requesting Provider: ARIS ANDERSEN Date/Time of Note DATE: 06/25/18 TIME: 13:37 Exam/Review of Systems Exam Vitals Vital Signs Date Temp Pulse Resp B/P (MAP) Pulse Ox O2 O2 Flow FiO2 Time Delivery Rate 06/25/18 98.0 91 20 98/57 (71) 98 11:28 06/23/18 Room Air 15:46 Intake and Output 06/24/18 06/24/18 06/25/18 1515:00 23:00 07:00 IntakeIntake Total 360 ml 540 ml 240 ml BalanceBalance 360 ml 540 ml 240 ml Results Result Diagram: 06/25/18 0526 06/25/18 0526 Results 24hrs Laboratory Tests Test 06/24/18 16:59 06/24/18 20:56 06/25/18 01:57 06/25/18 05:26 Bedside Glucose 108 144 115 White Blood Count 5.2 Red Blood Count 4.04 L Hemoglobin 11.4 L Hematocrit 35.9 L Mean Corpuscular Volume 88.9 Mean Corpuscular 28.2 L Hemoglobin Mean Corpuscular 31.8 L Hemoglobin Concent Red Cell Distribution 16.8 H Width Platelet Count 773 H Mean Platelet Volume 9.7 Immature Granulocytes % 0.400 Neutrophils % 47.2 Lymphocytes % 42.3 Monocytes % 5.8 Eosinophils % 3.1 Basophils % 1.2 Nucleated Red Blood 0.0 Cells % Immature Granulocytes # 0.020 Neutrophils # 2.5 Lymphocytes # 2.2 Monocytes # 0.3 Eosinophils # 0.2 Basophils # 0.1 Nucleated Red Blood 0.0 Cells # Sodium Level 140 Potassium Level 3.9 Chloride Level 103 Carbon Dioxide Level 25 Anion Gap 12 Blood Urea Nitrogen 9 Creatinine 0.42 L Glucose Level 172 Calcium Level 9.6 Phosphorus Level 4.0 Magnesium Level 1.7 Albumin 3.8 Test 06/25/18 06:44 06/25/18 07:58 06/25/18 12:00 Bedside Glucose 220 249 H 80 Medications Medication Current Medications Ondansetron HCl (Zofran Inj) 4 mg Q6H PRN IV NAUSEA AND/OR VOMITING Last administered on 06/25/18 09:15; Admin Dose 4 MG; Start 06/09/18 at 00:30 Ipratropium [place] (Atrovent 0.02% (Neb)) 0.5 mg Q2H RESP THERAPY PRN NEB SHORTNESS OF BREATH Last administered on 06/14/18at 21:38; Admin Dose 0.5 MG; Start 06/09/18 at 00:30 Acetaminophen (Tylenol Liquid) 650 mg Q6H PRN PO PAIN LEVEL 1-3 OR FEVER Last administered on 06/18/18 05:57; Admin Dose 650 MG; Start 06/09/18 at 00:30 Docusate Sodium (Colace) 100 mg Q12H PRN PO CONSTIPATION; Start 06/09/18 at 00:30 Bisacodyl (Dulcolax) 5 mg DAILY PRN PO CONSTIPATION; Start 06/09/18 at 00:30 Pantoprazole (Protonix Tab) 40 mg DAILY@06 PO Last administered on 06/25/18 06:37; Admin Dose 40 MG; Start 06/09/18 at 06:00 Diagnostic Test (Pha) (Accu-Chek) 1 ea 02 XX Last administered on 06/22/18 01:55; Admin Dose 1 EA; Start 06/10/18 at 02:00 Insulin Aspart (Novolog Insulin Pen) NOVOLOG *MILD* ALGORITHM WITH MEALS BEDTIME SC Last administered on 06/25/18 09:15; Admin Dose 3 UNIT; Start 06/09/18 at 18:00 Miscellaneous Information 1 ea NOTE XX ; Start 06/09/18 at 14:30 Glucose (Glutose) 15 gm Q15M PRN PO DECREASED GLUCOSE; Start 06/09/18 at 14:30 Glucose (Glutose) 22.5 gm Q15M PRN PO DECREASED GLUCOSE; Start 06/09/18 at 14:30 Dextrose (D50w Syringe) 25 ml Q15M PRN IV DECREASED GLUCOSE Last administered on 06/15/18at 20:53; Admin Dose 25 ML; Start 06/09/18 at 14:30 Dextrose (D50w Syringe) 50 ml Q15M PRN IV DECREASED GLUCOSE; Start 06/09/18 at 14:30 Glucagon (Glucagen) 1 mg Q15M PRN IM DECREASED GLUCOSE; Start 06/09/18 at 14:30 Glucose (Glutose) 15 gm Q15M PRN BUCCAL DECREASED GLUCOSE; Start 06/09/18 at 14:30 Ferrous Sulfate (Ferrous Sulfate (Ec)) 325 mg DAILY PO Last administered on 06/25/18 09:03; Admin Dose 325 MG; Start 06/13/18 at 10:30; Stop 08/12/18 at 10:29 Levalbuterol (Xopenex Neb) 1.25 mg Q6H RESP THERAPY PRN HHN sob/wheezing Last administered on 06/14/18at 21:38; Admin Dose 1.25 MG; Start 06/14/18 at 09:00 Guaifenesin/ Dextromethorphan (Mucinex Dm) 1 tab BID PO Last administered on 06/25/18at 09:04; Admin Dose 1 TAB; Start 06/14/18 at 09:30 Metformin HCl (Glucophage) 1,000 mg BID WITH MEALS PO Last administered on 06/25/18 09:03; Admin Dose 1,000 MG; Start 06/16/18 at 18:00 Ascorbic Acid (Vitamin C) 500 mg DAILY PO Last administered on 06/25/18 09:03; Admin Dose 500 MG; Start 06/17/18 at 09:00; Stop 08/16/18 at 08:59 Insulin Human NPH (Humulin N) 12 unit DAILY@20 SC Last administered on 06/24/18at 20:30; Admin Dose 12 UNIT; Start 06/17/18 at 20:00 Guaifenesin/ Codeine Phosphate (Robitussin Ac Liquid Cup) 5 ml Q4H PRN PO cough Last administered on 06/18/18at 20:25; Admin Dose 5 ML; Start 06/18/18 at 12:00 Linezolid (Zyvox) 600 mg BID PO Last administered on 06/25/18 09:03; Admin Dose 600 MG; Start 06/18/18 at 21:00 Fluconazole (Diflucan) 100 mg DAILY PO Last administered on 06/25/18at 09:04; Admin Dose 100 MG; Start 06/21/18 at 09:00 Rifampin (Rifampin) 600 mg DAILY PO Last administered on 06/25/18 09:03; Admin Dose 600 MG; Start 06/20/18 at 14:30 Zolpidem Tartrate (Ambien) 10 mg HS PO Last administered on 06/24/18at 23:44; Admin Dose 10 MG; Start 06/22/18 at 21:00 Multi-Ingredient Ointment (Eucerin Cream) 1 applic BID TOP Last administered on 06/25/18at 10:08; Admin Dose 1 APPLIC; Start 06/24/18 at 10:00 Glimepiride (Amaryl) 4 mg QHS PO ; Start 06/25/18 at 21:00 Glimepiride (Amaryl) 2 mg AC BREAKFAST PO ; Start 06/26/18 at 07:00 JOSE GOVEA NP Jun 25, 2018 13:38
[2018-06-25] MEDS ORDERED: GLIMEPIRIDE 2 MG TAB PO SCH (17:30)
[2018-06-25] MEDS: GLIMEPIRIDE 4 MG TAB PO SCH (20:21)
[2018-06-25] MEDS: ZOLPIDEM 5 MG TAB PO SCH (20:21)
[2018-06-25] MEDS: NPH, HUMAN INSULIN ISOPHANE 3ML VIAL SC SCH (20:28)
[2018-06-26] VITALS (11 sets, daily range): BP systolic 102–126; BP diastolic 58–81; PULSE 97–116; RESP 17–20
[2018-06-26] MEDS: ACCU-CHEK XX SCH (01:56)
[2018-06-26] MEDS: ONDANSETRON 4 MG INJ IV PRN ×2 (02:01→09:06)
[2018-06-26] MEDS: GLIMEPIRIDE 2 MG TAB PO SCH (06:31)
[2018-06-26] MEDS: PANTOPRAZOLE (EC) 40 MG TAB PO SCH (06:31)
[2018-06-26] MEDS: metFORMIN 500 MG TAB PO SCH ×2 (07:39→17:16)
[2018-06-26] MEDS: INSULIN ASPART [NOVOLOG] 3 ML PEN SC SCH ×4 (07:39→20:31)
[2018-06-26] MEDS: ZYVOX 600 MG TAB PO SCH ×2 (08:30→20:30)
[2018-06-26] MEDS: ASCORBIC ACID 500 MG TAB PO SCH (08:30)
[2018-06-26] MEDS: GUAIFENESIN/DM (SR) TAB PO SCH ×2 (08:30→20:30)
[2018-06-26] MEDS: RIFAMPIN 300 MG CAP PO SCH (08:30)
[2018-06-26] MEDS: FLUCONAZOLE 100 MG TAB PO SCH (08:30)
[2018-06-26] MEDS: FERROUS SULFATE (EC) 325 MG TAB PO SCH (08:30)
[2018-06-26] MEDS: EUCERIN 113 GM CR TOP SCH ×2 (08:33→20:33)
--- NOTE | 2018-06-26 10:43 | CONS ---
Consult Date/Type/Reason Admit Date/Time Jun 08, 2018 at 23:53 Initial Consult Date Type of Consult Pulmonary Requesting Provider: ARIS ANDERSEN Date/Time of Note DATE: 06/26/18 TIME: 10:42 Subjective Still having pleuritic chest pain shortness of breath Objective Vital Signs Date Temp Pulse Resp B/P (MAP) Pulse Ox O2 O2 Flow FiO2 Time Delivery Rate 06/26/18 98.2 109 18 104/74 96 07:21 (84) 06/23/18 Room Air 15:46 Intake and Output 06/25/18 06/25/18 06/26/18 1515:00 23:00 07:00 IntakeIntake Total 950 ml 800 ml BalanceBalance 950 ml 800 ml Exam GENERAL: VITAL SIGNS: per chart NECK: Supple. No JVD or lymphadenopathy. CARDIAC EXAM: S1, S2. No added sounds or murmurs. CHEST: clear bilaterally, No added sounds, rales or wheezes ABDOMEN: Soft, nontender. No guarding or rebound. EXTREMITIES: No cyanosis, clubbing or edema. NEUROLOGIC: Generalized weakness. No focal deficits. Vent Setting Fraction of Inspired Oxygen pe: 21 Results/Medications Result Diagram: 06/26/18 0512 06/26/18 0512 Results 24 hrs Laboratory Tests Test 06/25/18 12:00 06/25/18 17:09 06/25/18 20:19 06/26/18 01:55 Bedside Glucose 80 188 83 110 Test 06/26/18 05:12 06/26/18 07:37 White Blood Count 6.6 # Red Blood Count 4.34 Hemoglobin 12.0 Hematocrit 38.7 Mean Corpuscular Volume 89.2 Mean Corpuscular 27.6 L Hemoglobin Mean Corpuscular 31.0 L Hemoglobin Concent Red Cell Distribution 16.2 H Width Platelet Count 793 H Mean Platelet Volume 9.6 Immature Granulocytes % 0.300 Neutrophils % 48.2 Lymphocytes % 43.8 Monocytes % 4.9 Eosinophils % 2.0 Basophils % 0.8 Nucleated Red Blood 0.0 Cells % Immature Granulocytes # 0.020 Neutrophils # 3.2 Lymphocytes # 2.9 Monocytes # 0.3 Eosinophils # 0.1 Basophils # 0.1 Nucleated Red Blood 0.0 Cells # Sodium Level 141 Potassium Level 3.6 Chloride Level 104 Carbon Dioxide Level 27 Anion Gap 10 Blood Urea Nitrogen 11 Creatinine 0.41 L Glucose Level 94 # Calcium Level 10.0 Phosphorus Level 3.7 Magnesium Level 1.8 Albumin 4.0 Bedside Glucose 108 Medications Current Medications Ondansetron HCl (Zofran Inj) 4 mg Q6H PRN IV NAUSEA AND/OR VOMITING Last administered on 06/26/18 09:06; Admin Dose 4 MG; Start 06/09/18 at 00:30 Ipratropium [place] (Atrovent 0.02% (Neb)) 0.5 mg Q2H RESP THERAPY PRN NEB SHORTNESS OF BREATH Last administered on 06/14/18 21:38; Admin Dose 0.5 MG; Start 06/09/18 at 00:30 Acetaminophen (Tylenol Liquid) 650 mg Q6H PRN PO PAIN LEVEL 1-3 OR FEVER Last administered on 06/18/18 05:57; Admin Dose 650 MG; Start 06/09/18 at 00:30 Docusate Sodium (Colace) 100 mg Q12H PRN PO CONSTIPATION; Start 06/09/18 at 00:30 Bisacodyl (Dulcolax) 5 mg DAILY PRN PO CONSTIPATION; Start 06/09/18 at 00:30 Pantoprazole (Protonix Tab) 40 mg DAILY@06 PO Last administered on 06/26/18 06:31; Admin Dose 40 MG; Start 06/09/18 at 06:00 Diagnostic Test (Pha) (Accu-Chek) 1 ea 02 XX Last administered on 06/26/18 01: 56; Admin Dose 1 EA; Start 06/10/18 at 02:00 Insulin Aspart (Novolog Insulin Pen) NOVOLOG *MILD* ALGORITHM WITH MEALS BEDTIME SC Last administered on 06/25/18 17:14; Admin Dose 2 UNIT; Start 06/09/18 at 18:00 Miscellaneous Information 1 ea NOTE XX ; Start 06/09/18 at 14:30 Glucose (Glutose) 15 gm Q15M PRN PO DECREASED GLUCOSE; Start 06/09/18 at 14:30 Glucose (Glutose) 22.5 gm Q15M PRN PO DECREASED GLUCOSE; Start 06/09/18 at 14:30 Dextrose (D50w Syringe) 25 ml Q15M PRN IV DECREASED GLUCOSE Last administered on 06/15/18 20:53; Admin Dose 25 ML; Start 06/09/18 at 14:30 Dextrose (D50w Syringe) 50 ml Q15M PRN IV DECREASED GLUCOSE; Start 06/09/18 at 14:30 Glucagon (Glucagen) 1 mg Q15M PRN IM DECREASED GLUCOSE; Start 06/09/18 at 14:30 Glucose (Glutose) 15 gm Q15M PRN BUCCAL DECREASED GLUCOSE; Start 06/09/18 at 14:30 Ferrous Sulfate (Ferrous Sulfate (Ec)) 325 mg DAILY PO Last administered on 06/26/18 08:30; Admin Dose 325 MG; Start 06/13/18 at 10:30; Stop 08/12/18 at 10:29 Levalbuterol (Xopenex Neb) 1.25 mg Q6H RESP THERAPY PRN HHN sob/wheezing Last administered on 06/14/18 21:38; Admin Dose 1.25 MG; Start 06/14/18 at 09:00 Guaifenesin/ Dextromethorphan (Mucinex Dm) 1 tab BID PO Last administered on 06/26/18 08:30; Admin Dose 1 TAB; Start 06/14/18 at 09:30 Metformin HCl (Glucophage) 1,000 mg BID WITH MEALS PO Last administered on 06/26/18 07:39; Admin Dose 1,000 MG; Start 06/16/18 at 18:00 Ascorbic Acid (Vitamin C) 500 mg DAILY PO Last administered on 06/26/18 08:30; Admin Dose 500 MG; Start 06/17/18 at 09:00; Stop 08/16/18 at 08:59 Insulin Human NPH (Humulin N) 12 unit DAILY@20 SC Last administered on 06/25/18 20:28; Admin Dose 12 UNIT; Start 06/17/18 at 20:00 Guaifenesin/ Codeine Phosphate (Robitussin Ac Liquid Cup) 5 ml Q4H PRN PO cough Last administered on 06/18/18 20:25; Admin Dose 5 ML; Start 06/18/18 at 12:00 Linezolid (Zyvox) 600 mg BID PO Last administered on 06/26/18 08:30; Admin Dose 600 MG; Start 06/18/18 at 21:00 Fluconazole (Diflucan) 100 mg DAILY PO Last administered on 06/26/18 08:30; Admin Dose 100 MG; Start 06/21/18 at 09:00 Rifampin (Rifampin) 600 mg DAILY PO Last administered on 06/26/18 08:30; Admin Dose 600 MG; Start 06/20/18 at 14:30 Zolpidem Tartrate (Ambien) 10 mg HS PO Last administered on 06/25/18 20:21; Admin Dose 10 MG; Start 06/22/18 at 21:00 Multi-Ingredient Ointment (Eucerin Cream) 1 applic BID TOP Last administered on 06/26/18 08:33; Admin Dose 1 APPLIC; Start 06/24/18 at 10:00 Glimepiride (Amaryl) 4 mg QHS PO Last administered on 06/25/18 20:21; Admin Dose 4 MG; Start 06/25/18 at 21:00 Glimepiride (Amaryl) 2 mg AC BREAKFAST PO Last administered on 06/26/18 06:31; Admin Dose 2 MG; Start 06/26/18 at 07:00 Assessment/Plan Hospital Course (Demo Recall) IMP: 1. Multifocal airspace opacities--> now evolution of cavitary nodules--findings concerning for septic pulmonary emboli. RECS: 1. Abx per ID, repeat chest x-ray today 2. Would proceed with BITA to evaluate for an endovascular source for SPE, will discuss with primary team ALICIA HAZEL MD, [facility] Jun 26, 2018 10:43
--- NOTE | 2018-06-26 11:45 | PN ---
Date/Time of Note Date/Time of Note DATE: 06/26/18 TIME: 11:42 Objective Vitals Vital Signs Date Temp Pulse Resp B/P (MAP) Pulse Ox O2 O2 Flow FiO2 Time Delivery Rate 06/26/18 97 08:01 06/26/18 98.2 18 104/74 96 07:21 (84) 06/23/18 Room Air 15:46 Intake and Output 06/25/18 06/25/18 06/26/18 1515:00 23:00 07:00 IntakeIntake Total 950 ml 800 ml BalanceBalance 950 ml 800 ml Results Result Diagram: 06/26/1851106/26/18511 Medications Medications Current Medications Ondansetron HCl (Zofran Inj) 4 mg Q6H PRN IV NAUSEA AND/OR VOMITING Last administered on 06/26/18 09:06; Admin Dose 4 MG; Start 06/09/18 at 00:30 Ipratropium [place] (Atrovent 0.02% (Neb)) 0.5 mg Q2H RESP THERAPY PRN NEB S HORTNESS OF BREATH Last administered on 06/14/18at 21:38; Admin Dose 0.5 MG; Start 06/09/18 at 00:30 Acetaminophen (Tylenol Liquid) 650 mg Q6H PRN PO PAIN LEVEL 1-3 OR FEVER Last administered on 06/18/18 05:57; Admin Dose 650 MG; Start 06/09/18 at 00:30 Docusate Sodium (Colace) 100 mg Q12H PRN PO CONSTIPATION; Start 06/09/18 at 00:30 Bisacodyl (Dulcolax) 5 mg DAILY PRN PO CONSTIPATION; Start 06/09/18 at 00:30 Pantoprazole (Protonix Tab) 40 mg DAILY@06 PO Last administered on 06/26/18 06:31; Admin Dose 40 MG; Start 06/09/18 at 06:00 Diagnostic Test (Pha) (Accu-Chek) 1 ea 02 XX Last administered on 06/26/18 01:56; Admin Dose 1 EA; Start 06/10/18 at 02:00 Insulin Aspart (Novolog Insulin Pen) NOVOLOG *MILD* ALGORITHM WITH MEALS BEDTIME SC Last administered on 06/25/18 17:14; Admin Dose 2 UNIT; Start 06/09/18 at 18:00 Miscellaneous Information 1 ea NOTE XX ; Start 06/09/18 at 14:30 Glucose (Glutose) 15 gm Q15M PRN PO DECREASED GLUCOSE; Start 06/09/18 at 14:30 Glucose (Glutose) 22.5 gm Q15M PRN PO DECREASED GLUCOSE; Start 06/09/18 at 14:30 Dextrose (D50w Syringe) 25 ml Q15M PRN IV DECREASED GLUCOSE Last administered on 06/15/18at 20:53; Admin Dose 25 ML; Start 06/09/18 at 14:30 Dextrose (D50w Syringe) 50 ml Q15M PRN IV DECREASED GLUCOSE; Start 06/09/18 at 14:30 Glucagon (Glucagen) 1 mg Q15M PRN IM DECREASED GLUCOSE; Start 06/09/18 at 14:30 Glucose (Glutose) 15 gm Q15M PRN BUCCAL DECREASED GLUCOSE; Start 06/09/18 at 14:30 Ferrous Sulfate (Ferrous Sulfate (Ec)) 325 mg DAILY PO Last administered on 06/26/18 08:30; Admin Dose 325 MG; Start 06/13/18 at 10:30; Stop 08/12/18 at 10:29 Levalbuterol (Xopenex Neb) 1.25 mg Q6H RESP THERAPY PRN HHN sob/wheezing Last administered on 06/14/18at 21:38; Admin Dose 1.25 MG; Start 06/14/18 at 09:00 Guaifenesin/ Dextromethorphan (Mucinex Dm) 1 tab BID PO Last administered on 06/26/18 08:30; Admin Dose 1 TAB; Start 06/14/18 at 09:30 Metformin HCl (Glucophage) 1,000 mg BID WITH MEALS PO Last administered on 06/26/18 07:39; Admin Dose 1,000 MG; Start 06/16/18 at 18:00 Ascorbic Acid (Vitamin C) 500 mg DAILY PO Last administered on 06/26/18 08:30; Admin Dose 500 MG; Start 06/17/18 at 09:00; Stop 08/16/18 at 08:59 Insulin Human NPH (Humulin N) 12 unit DAILY@20 SC Last administered on 06/25/18at 20:28; Admin Dose 12 UNIT; Start 06/17/18 at 20:00 Guaifenesin/ Codeine Phosphate (Robitussin Ac Liquid Cup) 5 ml Q4H PRN PO cough Last administered on 06/18/18 20:25; Admin Dose 5 ML; Start 06/18/18 at 12:00 Linezolid (Zyvox) 600 mg BID PO Last administered on 06/26/18 08:30; Admin Dose 600 MG; Start 06/18/18 at 21:00 Fluconazole (Diflucan) 100 mg DAILY PO Last administered on 06/26/18 08:30; Admin Dose 100 MG; Start 06/21/18 at 09:00 Rifampin (Rifampin) 600 mg DAILY PO Last administered on 06/26/18 08:30; Admin Dose 600 MG; Start 06/20/18 at 14:30 Zolpidem Tartrate (Ambien) 10 mg HS PO Last administered on 06/25/18 20:21; Admin Dose 10 MG; Start 06/22/18 at 21:00 Multi-Ingredient Ointment (Eucerin Cream) 1 applic BID TOP Last administered on 06/26/18 08:33; Admin Dose 1 APPLIC; Start 06/24/18 at 10:00 Glimepiride (Amaryl) 4 mg QHS PO Last administered on 06/25/18 20:21; Admin Dose 4 MG; Start 06/25/18 at 21:00 Glimepiride (Amaryl) 2 mg AC BREAKFAST PO Last administered on 06/26/18 06:31; Admin Dose 2 MG; Start 06/26/18 at 07:00 VTE [place] [facility] [place]: 3 [place] [facility] [place] No SCD contraindication: other Lines/Catheters IV Catheter Type: Garcia in Place: No Assessment/Plan Hospital Course Subjective Patient still having some cough and some pleuritic chest pain, otherwise doing okay, no acute complaints Objective Physical exam General: Patient is laying in bed and answers questions appropriately Mentation: Patient is alert and oriented 4, Head: Normocephalic atraumatic Eyes: EOMI, pupils reactive to light Neck: Supple, nontender, midline Respiratory: Coarse to auscultation bilaterally Cardiovascular: regular rate, no obvious murmurs Gastrointestinal: non-tender to palpation, bowel sounds heard. Neurological: Moves all extremities spontaneously Skin: No new skin lesions Assessment/Plan 1. MRSA bacteremia - Repeat blood culture negative. Remains afebrile with nl WBC. - ID on board and appreciate recommendations. Continue on current antibiotics 2. Tachycardia - most likely secondary to pulmonary process 3. Poorly controlled diabetes - A1c noted - continues to fluctuate based on diet compliance - Admits to eating outside food since current diet is very bland. Discussed need to follow low sugar, low carb diet - Endocrinology on board and appreciate recommendations. Continue on current insulin and glimepiride. 4. Extensive bilateral multilobar pneumonia - Patient found with MRSA in sputum and CT scan showing cavitating lesions but improvement in bilateral infiltrate - Pulm on board and continue current treatment. Cocci studies still pending. After review of recent CT scan concern for septic emboli. Repeat ECHO ordered with focus on tricuspid valve to evaluate for vegetation. If negative, will need BITA - Repeat CT scan performed this am showing "Multifocal bilateral areas of pneumonia are again present and have diminished in overall size however there is interval development of multiple foci of lucencies within the areas of consolidation suggestive for bronchiectasis or developing small cavitary lesions." - ID recommendations appreciated 5. Homelessness - SW on board - patient states she plans to go to rehab following discharge 6. History of meth abuse - Patient states last use was 2 weeks prior to admission. Counseled on cessation. 7. Tobacco use - Cessation advised. 8. Iron Deficient anemia. - Continue oral iron. - H&H stable. 9. Mild asthma. - Currently stable - nebs PRN 10. Disposition -Pulmonology requesting cardiology consultation for BITA, cardiology consulted HAYDEE RAYO Jun 26, 2018 11:45
--- NOTE | 2018-06-26 13:07 | RADRPT ---
Echocardiogram Report Patient Name: KATHRIN ZHENGPatient ID: [id number] : 1975 (42y 6m)Study Date: 06/26/2018 7:58:47 AM Gender: FAccession #: [id number] Tech: Dalton RUST Location: [facility] Ref.Physician: DAVE HAMMONDS Height(Cm): BSA: Weight(Kg): Quality: AdequateAccount #: Procedures: Echocardiographic Report: Transthoracic echocardiogram with complete 2D, M-Mode, and doppler examination. Indications: R/O Vegetation, focus on TV. Measurements: 2D/M Mode Doppler Measurement Value Normal Range Measurement Value Normal Range LVIDd 2D 3.6 [ 3.8 - 5.2 ] cm AV Peak Quintin 1.3 [ 100.0 - 170.0 ] cm/sec LVIDs 2D 2.3 [ 2.2 - 3.5 ] cm AV Peak PG 7.0 [ 2.0 - 9.0 ] mmHg LVPWd 2D 1.1 [ 0.6 - 0.9 ] cm LVOT Peak Quintin 1.2 [ 70.0 - 110.0 ] cm/sec IVSd 2D 1.1 [ 0.6 - 0.9 ] cm LVOT Peak PG 5.0 [ 2.0 - 6.0 ] mmHg AoR Diam 2D 2.1 [ 2.3 - 3.1 ] cm MV E Peak Quintin 0.5 [ 60.0 - 130.0 ] cm/sec EDV 2D 54.4 [ 46.0 - 106.0 ] ml MV A Peak Quintin 0.8 [ 100.0 - 120.0 ] cm/sec ESV 2D 19.1 [ 14.0 - 42.0 ] ml MV E/A 0.7 [ 0.8 - 1.5 ] ratio EF 2D 64.9 [ 54.0 - 74.0 ] percent MV Decel Time 144 [ 104 - 258 ] msec LA Dimen 2D 2.7 [ 2.7 - 3.8 ] cm Lat E` Quintin 0.1 [ 10.0 - 15.0 ] cm/sec Lateral E/E` 3.9 [ 1.0 - 2.0 ] ratio MV E/A 0.7 [ 0.8 - 1.5 ] ratio RA Pressure 3.0 mmHg Findings: Left Ventricle: Normal left ventricular systolic function. Normal left ventricular cavity size. Left ventricular wall thickness upper limits of normal. Ejection fraction is visually estimated at 60 %. Tissue Doppler/Mitral Doppler indices are consistent with impaired relaxation (Stage I diastolic dysfunction). Right Ventricle: Normal right ventricular size. Normal right ventricular systolic function. Left Atrium: The left atrium is normal in size. Right Atrium: The right atrium is normal in size. Mitral Valve: Mild mitral leaflet calcification. Mild mitral annular calcification. Trace mitral regurgitation. Aortic Valve: No significant aortic stenosis or insufficiency. Aortic cusps appear mildly calcified. Tricuspid Valve: Normal appearance and function of the tricuspid valve with trace physiologic regurgitation. Pulmonic Valve: Pulmonic valve not well visualized. Pericardium: Normal pericardium with no significant pericardial effusion. Aorta: Normal aortic root. IVC: Normal size and normal respiratory collapse consistent with normal right atrial pressure. Conclusions: Normal left ventricular systolic function. Normal left ventricular cavity size. Left ventricular wall thickness upper limits of normal. Ejection fraction is visually estimated at 60 %. Tissue Doppler/Mitral Doppler indices are consistent with impaired relaxation (Stage I diastolic dysfunction). Normal right ventricular size. Normal right ventricular systolic function. The left atrium is normal in size. The right atrium is normal in size. No significant valvular stenosis or regurgitation seen. Normal pericardium with no significant pericardial effusion. Electronically Signed By: Nathan Gilmore 2018-06-26 13:06:40 PDT
--- NOTE | 2018-06-26 13:40 | CONS ---
Assessment/Plan Assessment/Plan Hospital Course (Demo Recall) No acute events, awake comfortable no fevers AFB smears negative 3 sets Microbiology: Blood culture on June 08 grew MRSA, repeat blood cultures negative, sputum culture on June 16 grew Talia albicans and MRSA. Serology for HIV negative Antimicrobials: Zyvox Rifampin Diflucan Physical examination: Well-developed middle-aged woman who is alert in no distress. Head atraumatic normocephalic sclera nonicteric. Neck is supple chest rise symmetrical breath sounds diminished bases. Heart S1-S2. Abdomen soft bowel sounds present. Extremities without cyanosis. Assessment: 1. Resolving sepsis 2. MRSA bacteremia on admission 3. Necrotizing MRSA pneumonia with areas of cavitation per CT ?septic emboli 4. Homelessness 5. Poorly controlled diabetes 6. History of recent meth amphetamine abuse Plan: Clinically stable, repeat bld cx neg, 2D ECHO on admission neg, continue a bx, pending BITA Consultation Date/Type/Reason Admit Date/Time Jun 08, 2018 at 23:53 Initial Consult Date Type of Consult id Requesting Provider: ARIS ANDERSEN Date/Time of Note DATE: 06/26/18 TIME: 13:39 Exam/Review of Systems Exam Vitals Vital Signs Date Temp Pulse Resp B/P (MAP) Pulse Ox O2 O2 Flow FiO2 Time Delivery Rate 06/26/18 97.9 97 18 121/80 98 11:45 (94) 06/23/18 Room Air 15:46 Intake and Output 06/25/18 06/25/18 06/26/18 1515:00 23:00 07:00 IntakeIntake Total 950 ml 800 ml BalanceBalance 950 ml 800 ml Results Result Diagram: 06/26/18 0512 06/26/18 0512 Results 24hrs Laboratory Tests Test 06/25/18 17:09 06/25/18 20:19 06/26/18 01:55 06/26/18 05:12 Bedside Glucose 188 83 110 White Blood Count 6.6 # Red Blood Count 4.34 Hemoglobin 12.0 Hematocrit 38.7 Mean Corpuscular Volume 89.2 Mean Corpuscular 27.6 L Hemoglobin Mean Corpuscular 31.0 L Hemoglobin Concent Red Cell Distribution 16.2 H Width Platelet Count 793 H Mean Platelet Volume 9.6 Immature Granulocytes % 0.300 Neutrophils % 48.2 Lymphocytes % 43.8 Monocytes % 4.9 Eosinophils % 2.0 Basophils % 0.8 Nucleated Red Blood 0.0 Cells % Immature Granulocytes # 0.020 Neutrophils # 3.2 Lymphocytes # 2.9 Monocytes # 0.3 Eosinophils # 0.1 Basophils # 0.1 Nucleated Red Blood 0.0 Cells # Sodium Level 141 Potassium Level 3.6 Chloride Level 104 Carbon Dioxide Level 27 Anion Gap 10 Blood Urea Nitrogen 11 Creatinine 0.41 L Glucose Level 94 # Calcium Level 10.0 Phosphorus Level 3.7 Magnesium Level 1.8 Albumin 4.0 Test 06/26/18 07:37 06/26/18 11:39 Bedside Glucose 108 93 Medications Medication Current Medications Ondansetron HCl (Zofran Inj) 4 mg Q6H PRN IV NAUSEA AND/OR VOMITING Last administered on 06/26/18 09:06; Admin Dose 4 MG; Start 06/09/18 at 00:30 Ipratropium [place] (Atrovent 0.02% (Neb)) 0.5 mg Q2H RESP THERAPY PRN NEB SHORTNESS OF BREATH Last administered on 06/14/18at 21:38; Admin Dose 0.5 MG; Start 06/09/18 at 00:30 Acetaminophen (Tylenol Liquid) 650 mg Q6H PRN PO PAIN LEVEL 1-3 OR FEVER Last administered on 06/18/18at 05:57; Admin Dose 650 MG; Start 06/09/18 at 00:30 Docusate Sodium (Colace) 100 mg Q12H PRN PO CONSTIPATION; Start 06/09/18 at 00:30 Bisacodyl (Dulcolax) 5 mg DAILY PRN PO CONSTIPATION; Start 06/09/18 at 00:30 Pantoprazole (Protonix Tab) 40 mg DAILY@06 PO Last administered on 06/26/18 06:31; Admin Dose 40 MG; Start 06/09/18 at 06:00 Diagnostic Test (Pha) (Accu-Chek) 1 ea 02 XX Last administered on 06/26/18at 01:56; Admin Dose 1 EA; Start 06/10/18 at 02:00 Insulin Aspart (Novolog Insulin Pen) NOVOLOG *MILD* ALGORITHM WITH MEALS BEDTIME SC Last administered on 06/25/18at 17:14; Admin Dose 2 UNIT; Start 06/09/18 at 18:00 Miscellaneous Information 1 ea NOTE XX ; Start 06/09/18 at 14:30 Glucose (Glutose) 15 gm Q15M PRN PO DECREASED GLUCOSE; Start 06/09/18 at 14:30 Glucose (Glutose) 22.5 gm Q15M PRN PO DECREASED GLUCOSE; Start 06/09/18 at 14:30 Dextrose (D50w Syringe) 25 ml Q15M PRN IV DECREASED GLUCOSE Last administered on 06/15/18at 20:53; Admin Dose 25 ML; Start 06/09/18 at 14:30 Dextrose (D50w Syringe) 50 ml Q15M PRN IV DECREASED GLUCOSE; Start 06/09/18 at 14:30 Glucagon (Glucagen) 1 mg Q15M PRN IM DECREASED GLUCOSE; Start 06/09/18 at 14:30 Glucose (Glutose) 15 gm Q15M PRN BUCCAL DECREASED GLUCOSE; Start 06/09/18 at 14:30 Ferrous Sulfate (Ferrous Sulfate (Ec)) 325 mg DAILY PO Last administered on 06/26/18 08:30; Admin Dose 325 MG; Start 06/13/18 at 10:30; Stop 08/12/18 at 10:29 Levalbuterol (Xopenex Neb) 1.25 mg Q6H RESP THERAPY PRN HHN sob/wheezing Last administered on 06/14/18at 21:38; Admin Dose 1.25 MG; Start 06/14/18 at 09:00 Guaifenesin/ Dextromethorphan (Mucinex Dm) 1 tab BID PO Last administered on 06/26/18 08:30; Admin Dose 1 TAB; Start 06/14/18 at 09:30 Metformin HCl (Glucophage) 1,000 mg BID WITH MEALS PO Last administered on 06/26/18 07:39; Admin Dose 1,000 MG; Start 06/16/18 at 18:00 Ascorbic Acid (Vitamin C) 500 mg DAILY PO Last administered on 06/26/18 08:30; Admin Dose 500 MG; Start 06/17/18 at 09:00; Stop 08/16/18 at 08:59 Insulin Human NPH (Humulin N) 12 unit DAILY@20 SC Last administered on 06/25/18 20:28; Admin Dose 12 UNIT; Start 06/17/18 at 20:00 Guaifenesin/ Codeine Phosphate (Robitussin Ac Liquid Cup) 5 ml Q4H PRN PO cough Last administered on 06/18/18 20:25; Admin Dose 5 ML; Start 06/18/18 at 12:00 Linezolid (Zyvox) 600 mg BID PO Last administered on 06/26/18 08:30; Admin Dose 600 MG; Start 06/18/18 at 21:00 Fluconazole (Diflucan) 100 mg DAILY PO Last administered on 06/26/18 08:30; Admin Dose 100 MG; Start 06/21/18 at 09:00 Rifampin (Rifampin) 600 mg DAILY PO Last administered on 06/26/18 08:30; Admin Dose 600 MG; Start 06/20/18 at 14:30 Zolpidem Tartrate (Ambien) 10 mg HS PO Last administered on 06/25/18 20:21; Admin Dose 10 MG; Start 06/22/18 at 21:00 Multi-Ingredient Ointment (Eucerin Cream) 1 applic BID TOP Last administered on 06/26/18 08:33; Admin Dose 1 APPLIC; Start 06/24/18 at 10:00 Glimepiride (Amaryl) 4 mg QHS PO Last administered on 06/25/18 20:21; Admin Dose 4 MG; Start 06/25/18 at 21:00 Glimepiride (Amaryl) 2 mg AC BREAKFAST PO Last administered on 06/26/18 06:31; Admin Dose 2 MG; Start 06/26/18 at 07:00 JOSE GOVEA NP Jun 26, 2018 13:40
--- NOTE | 2018-06-26 14:18 | CONS ---
Assessment/Plan Assessment/Plan Problems: (1) Diabetes mellitus type 2 in nonobese Status: Chronic Comment: Very good control, continue this Consultation Date/Type/Reason Admit Date/Time Jun 08, 2018 at 23:53 Initial Consult Date June 09, 2018 Type of Consult Endocrinology Reason for Consultation Diabetes mellitus type II out of control Requesting Provider: ARIS ANDERSEN Date/Time of Note DATE: 06/26/18 TIME: 14:17 24 HR Interval Summary Constitutional: no complaints Detailed Summary Cardiovascular: no complaints Gastrointestinal: no complaints Genitourinary: no complaints Exam/Review of Systems Exam Vitals Vital Signs Date Temp Pulse Resp B/P (MAP) Pulse Ox O2 O2 Flow FiO2 Time Delivery Rate 06/26/18 109 12:01 06/26/18 97.9 18 121/80 98 11:45 (94) 06/23/18 Room Air 15:46 Intake and Output 06/25/18 06/25/18 06/26/18 1515:00 23:00 07:00 IntakeIntake Total 950 ml 800 ml BalanceBalance 950 ml 800 ml Constitutional: alert, oriented Neck: supple, non-tender Respiratory: clear to auscultation, normal air movement Cardiovascular: regular rate and rhythm, nl pulses Results Result Diagram: 06/26/18 0512 06/26/18 0512 Results 24hrs Laboratory Tests Test 06/25/18 17:09 06/25/18 20:19 06/26/18 01:55 06/26/18 05:12 Bedside Glucose 188 83 110 White Blood Count 6.6 # Red Blood Count 4.34 Hemoglobin 12.0 Hematocrit 38.7 Mean Corpuscular Volume 89.2 Mean Corpuscular 27.6 L Hemoglobin Mean Corpuscular 31.0 L Hemoglobin Concent Red Cell Distribution 16.2 H Width Platelet Count 793 H Mean Platelet Volume 9.6 Immature Granulocytes % 0.300 Neutrophils % 48.2 Lymphocytes % 43.8 Monocytes % 4.9 Eosinophils % 2.0 Basophils % 0.8 Nucleated Red Blood 0.0 Cells % Immature Granulocytes # 0.020 Neutrophils # 3.2 Lymphocytes # 2.9 Monocytes # 0.3 Eosinophils # 0.1 Basophils # 0.1 Nucleated Red Blood 0.0 Cells # Sodium Level 141 Potassium Level 3.6 Chloride Level 104 Carbon Dioxide Level 27 Anion Gap 10 Blood Urea Nitrogen 11 Creatinine 0.41 L Glucose Level 94 # Calcium Level 10.0 Phosphorus Level 3.7 Magnesium Level 1.8 Albumin 4.0 Test 06/26/18 07:37 06/26/18 11:39 Bedside Glucose 108 93 Medications Medication Current Medications Ondansetron HCl (Zofran Inj) 4 mg Q6H PRN IV NAUSEA AND/OR VOMITING Last administered on 06/26/18 09:06; Admin Dose 4 MG; Start 06/09/18 at 00:30 Ipratropium [place] (Atrovent 0.02% (Neb)) 0.5 mg Q2H RESP THERAPY PRN NEB S HORTNESS OF BREATH Last administered on 06/14/18 21:38; Admin Dose 0.5 MG; Start 06/09/18 at 00:30 Acetaminophen (Tylenol Liquid) 650 mg Q6H PRN PO PAIN LEVEL 1-3 OR FEVER Last administered on 06/18/18 05:57; Admin Dose 650 MG; Start 06/09/18 at 00:30 Docusate Sodium (Colace) 100 mg Q12H PRN PO CONSTIPATION; Start 06/09/18 at 00:30 Bisacodyl (Dulcolax) 5 mg DAILY PRN PO CONSTIPATION; Start 06/09/18 at 00:30 Pantoprazole (Protonix Tab) 40 mg DAILY@06 PO Last administered on 06/26/18 06:31; Admin Dose 40 MG; Start 06/09/18 at 06:00 Diagnostic Test (Pha) (Accu-Chek) 1 ea 02 XX Last administered on 06/26/18 01:56; Admin Dose 1 EA; Start 06/10/18 at 02:00 Insulin Aspart (Novolog Insulin Pen) NOVOLOG *MILD* ALGORITHM WITH MEALS BEDTIME SC Last administered on 06/25/18 17:14; Admin Dose 2 UNIT; Start 06/09/18 at 18:00 Miscellaneous Information 1 ea NOTE XX ; Start 06/09/18 at 14:30 Glucose (Glutose) 15 gm Q15M PRN PO DECREASED GLUCOSE; Start 06/09/18 at 14:30 Glucose (Glutose) 22.5 gm Q15M PRN PO DECREASED GLUCOSE; Start 06/09/18 at 14:30 Dextrose (D50w Syringe) 25 ml Q15M PRN IV DECREASED GLUCOSE Last administered on 06/15/18 20:53; Admin Dose 25 ML; Start 06/09/18 at 14:30 Dextrose (D50w Syringe) 50 ml Q15M PRN IV DECREASED GLUCOSE; Start 06/09/18 at 14:30 Glucagon (Glucagen) 1 mg Q15M PRN IM DECREASED GLUCOSE; Start 06/09/18 at 14:30 Glucose (Glutose) 15 gm Q15M PRN BUCCAL DECREASED GLUCOSE; Start 06/09/18 at 14:30 Ferrous Sulfate (Ferrous Sulfate (Ec)) 325 mg DAILY PO Last administered on 06/26/18 08:30; Admin Dose 325 MG; Start 06/13/18 at 10:30; Stop 08/12/18 at 10:29 Levalbuterol (Xopenex Neb) 1.25 mg Q6H RESP THERAPY PRN HHN sob/wheezing Last administered on 06/14/18 21:38; Admin Dose 1.25 MG; Start 06/14/18 at 09:00 Guaifenesin/ Dextromethorphan (Mucinex Dm) 1 tab BID PO Last administered on 06/26/18 08:30; Admin Dose 1 TAB; Start 06/14/18 at 09:30 Metformin HCl (Glucophage) 1,000 mg BID WITH MEALS PO Last administered on 06/26/18 07:39; Admin Dose 1,000 MG; Start 06/16/18 at 18:00 Ascorbic Acid (Vitamin C) 500 mg DAILY PO Last administered on 06/26/18 08:30; Admin Dose 500 MG; Start 06/17/18 at 09:00; Stop 08/16/18 at 08:59 Insulin Human NPH (Humulin N) 12 unit DAILY@20 SC Last administered on 06/25/18 20:28; Admin Dose 12 UNIT; Start 06/17/18 at 20:00 Guaifenesin/ Codeine Phosphate (Robitussin Ac Liquid Cup) 5 ml Q4H PRN PO cough Last administered on 06/18/18 20:25; Admin Dose 5 ML; Start 06/18/18 at 12:00 Linezolid (Zyvox) 600 mg BID PO Last administered on 06/26/18 08:30; Admin Dose 600 MG; Start 06/18/18 at 21:00 Fluconazole (Diflucan) 100 mg DAILY PO Last administered on 06/26/18 08:30; Admin Dose 100 MG; Start 06/21/18 at 09:00 Rifampin (Rifampin) 600 mg DAILY PO Last administered on 06/26/18 08:30; Admin Dose 600 MG; Start 06/20/18 at 14:30 Zolpidem Tartrate (Ambien) 10 mg HS PO Last administered on 06/25/18 20:21; Admin Dose 10 MG; Start 06/22/18 at 21:00 Multi-Ingredient Ointment (Eucerin Cream) 1 applic BID TOP Last administered on 06/26/18 08:33; Admin Dose 1 APPLIC; Start 06/24/18 at 10:00 Glimepiride (Amaryl) 4 mg QHS PO Last administered on 06/25/18 20:21; Admin Dose 4 MG; Start 06/25/18 at 21:00 Glimepiride (Amaryl) 2 mg AC BREAKFAST PO Last administered on 06/26/18 06:31; Admin Dose 2 MG; Start 06/26/18 at 07:00 STEVE AGGARWAL MD Jun 26, 2018 14:18
--- NOTE | 2018-06-26 16:04 | CONS ---
Assessment/Plan Assessment/Plan Hospital Course (Demo Recall) 1. MRSA bacteremia 2. Pneumonia 3. Status post DKA 4. Diabetes 5. Anemia 6. Homelessness Recommendations: Diabetic management as per internal medicine and endocrine farm consultant. Antibiotic management as per infectious disease recommendations. We will schedule the patient for transesophageal echocardiogram. Risks and alternative procedure discussed with the patient in detail. Risks including but not limited to risk of anesthesia related complication esophageal tear and rupture aspiration etc. discussed with her. Consent has been obtained. We will schedule the patient once anesthesia is available thank you for this referral. We will continue to follow along with you ABDI JAY MD [facility] Consultation Date/Type/Reason Admit Date/Time Jun 08, 2018 at 23:53 Date of Consultation: Jun 26, 2018 Type of Consult Cardiology Reason for Consultation r/o endocarditis Requesting Provider: HAYDEE RAYO Date/Time of Note DATE: 06/26/18 TIME: 15:59 Hx of Present Illness Interventional cardiology consultation note Chief complaint: Fever chills not feeling well Reason for consult: Bacteremia evidence of septic emboli on the CT rule out endocarditis History of present illness: Thank you for this referral. History of lymphoma the patient discussion physician Kiya review of the chart This is a 42 y/o F with type 2 DM diagnosed about 5 years ago presented to the ED with body aches, fever and productive cough . . Workup here showed fever, MRSA bacteremia and imaging showed multiple areas of consolidation in different lobes of the lung. She has been placed on antibiotic. CT of the lung reviewed by the embedded software development engineer over the weekend and showed evidence of cavitary lesion consistent with possible septic emboli. We were asked to evaluate the patient for and do a BITA Allergies: No known drug allergies Medications were reviewed as per medical reconciliation sheet Family history: No history of early coronary artery disease Social history: Active smoker. Has used drug but denies any IV drug use. Denies alcohol to me. Patient is homeless Past medical history: Diabetes Review of system: Patient denies all others except for above-mentioned Past Medical History Home Meds Unable to Obtain Active Prescriptions or Reported Meds Medications Current Medications Ondansetron HCl (Zofran Inj) 4 mg Q6H PRN IV NAUSEA AND/OR VOMITING Last administered on 06/26/18at 09:06; Admin Dose 4 MG; Start 06/09/18 at 00:30 Ipratropium [place] (Atrovent 0.02% (Neb)) 0.5 mg Q2H RESP THERAPY PRN NEB SHORTNESS OF BREATH Last administered on 06/14/18at 21:38; Admin Dose 0.5 MG; Start 06/09/18 at 00:30 Acetaminophen (Tylenol Liquid) 650 mg Q6H PRN PO PAIN LEVEL 1-3 OR FEVER Last administered on 06/18/18at 05:57; Admin Dose 650 MG; Start 06/09/18 at 00:30 Docusate Sodium (Colace) 100 mg Q12H PRN PO CONSTIPATION; Start 06/09/18 at 00:30 Bisacodyl (Dulcolax) 5 mg DAILY PRN PO CONSTIPATION; Start 06/09/18 at 00:30 Pantoprazole (Protonix Tab) 40 mg DAILY@06 PO Last administered on 06/26/18at 06:31; Admin Dose 40 MG; Start 06/09/18 at 06:00 Diagnostic Test (Pha) (Accu-Chek) 1 ea 02 XX Last administered on 06/26/18at 01:56; Admin Dose 1 EA; Start 06/10/18 at 02:00 Insulin Aspart (Novolog Insulin Pen) NOVOLOG *MILD* ALGORITHM WITH MEALS BEDTIME SC Last administered on 06/25/18at 17:14; Admin Dose 2 UNIT; Start 06/09/18 at 18:00 Miscellaneous Information 1 ea NOTE XX ; Start 06/09/18 at 14:30 Glucose (Glutose) 15 gm Q15M PRN PO DECREASED GLUCOSE; Start 06/09/18 at 14:30 Glucose (Glutose) 22.5 gm Q15M PRN PO DECREASED GLUCOSE; Start 06/09/18 at 14:30 Dextrose (D50w Syringe) 25 ml Q15M PRN IV DECREASED GLUCOSE Last administered on 06/15/18at 20:53; Admin Dose 25 ML; Start 06/09/18 at 14:30 Dextrose (D50w Syringe) 50 ml Q15M PRN IV DECREASED GLUCOSE; Start 06/09/18 at 14:30 Glucagon (Glucagen) 1 mg Q15M PRN IM DECREASED GLUCOSE; Start 06/09/18 at 14:30 Glucose (Glutose) 15 gm Q15M PRN BUCCAL DECREASED GLUCOSE; Start 06/09/18 at 14:30 Ferrous Sulfate (Ferrous Sulfate (Ec)) 325 mg DAILY PO Last administered on 06/26/18 08:30; Admin Dose 325 MG; Start 06/13/18 at 10:30; Stop 08/12/18 at 10:29 Levalbuterol (Xopenex Neb) 1.25 mg Q6H RESP THERAPY PRN HHN sob/wheezing Last administered on 06/14/18 21:38; Admin Dose 1.25 MG; Start 06/14/18 at 09:00 Guaifenesin/ Dextromethorphan (Mucinex Dm) 1 tab BID PO Last administered on 06/26/18 08:30; Admin Dose 1 TAB; Start 06/14/18 at 09:30 Metformin HCl (Glucophage) 1,000 mg BID WITH MEALS PO Last administered on 06/26/18 07:39; Admin Dose 1,000 MG; Start 06/16/18 at 18:00 Ascorbic Acid (Vitamin C) 500 mg DAILY PO Last administered on 06/26/18 08:30; Admin Dose 500 MG; Start 06/17/18 at 09:00; Stop 08/16/18 at 08:59 Insulin Human NPH (Humulin N) 12 unit DAILY@20 SC Last administered on 06/25/18 20:28; Admin Dose 12 UNIT; Start 06/17/18 at 20:00 Guaifenesin/ Codeine Phosphate (Robitussin Ac Liquid Cup) 5 ml Q4H PRN PO cough Last administered on 06/18/18 20:25; Admin Dose 5 ML; Start 06/18/18 at 12:00 Linezolid (Zyvox) 600 mg BID PO Last administered on 06/26/18 08:30; Admin Dose 600 MG; Start 06/18/18 at 21:00 Fluconazole (Diflucan) 100 mg DAILY PO Last administered on 06/26/18 08:30; Admin Dose 100 MG; Start 06/21/18 at 09:00 Rifampin (Rifampin) 600 mg DAILY PO Last administered on 06/26/18 08:30; Admin Dose 600 MG; Start 06/20/18 at 14:30 Zolpidem Tartrate (Ambien) 10 mg HS PO Last administered on 06/25/18 20:21; Admin Dose 10 MG; Start 06/22/18 at 21:00 Multi-Ingredient Ointment (Eucerin Cream) 1 applic BID TOP Last administered on 06/26/18at 08:33; Admin Dose 1 APPLIC; Start 06/24/18 at 10:00 Glimepiride (Amaryl) 4 mg QHS PO Last administered on 06/25/18at 20:21; Admin Dose 4 MG; Start 06/25/18 at 21:00 Glimepiride (Amaryl) 2 mg AC BREAKFAST PO Last administered on 06/26/18at 06:31; Admin Dose 2 MG; Start 06/26/18 at 07:00 Allergies: Coded Allergies: No Known Allergy (Unverified , 06/20/18) Past Surgical History Past Surgical Hx: other (C section x4) Social History Smoking Status: Current every day smoker Drug Use: none Exam/Review of Systems Vital Signs Vitals Vital Signs Date Temp Pulse Resp B/P (MAP) Pulse Ox O2 O2 Flow FiO2 Time Delivery Rate 06/26/18 109 12:01 06/26/18 97.9 18 121/80 98 11:45 (94) 06/23/18 Room Air 15:46 Intake and Output 06/25/18 06/25/18 06/26/18 1414:59 22:59 06:59 IntakeIntake Total 950 ml 800 ml BalanceBalance 950 ml 800 ml Exam Exam General: no acute distress HEENT: NC/AT. pupils are equal. round. NECK: NO JVD. no stridor. CV: RRR. systolic murmur; no gallop or rubs. PULM: no wheezing + rhonchi. GI: SOFT, NT, ND, no rebound or guarding Extremity: No significant B/L LE edema. no clubbing. neuro: awake and alert, OX3. Psych: calm and pleasant rectal: deferred Derm: Multiple tattoos Repeat echocardiogram on 06/26/2018 shows: Normal left ventricular systolic function. Normal left ventricular cavity size. Left ventricular wall thickness upper limits of normal. Ejection fraction is visually estimated at 60 %. Tissue Doppler/Mitral Doppler indices are consistent with impaired relaxation (Stage I diastolic dysfunction). Normal right ventricular size. Normal right ventricular systolic function. The left atrium is normal in size. The right atrium is normal in size. No significant valvular stenosis or regurgitation seen. Normal pericardium with no significant pericardial effusion. Labs Result Diagram: 06/26/1851106/26/18 0512 Results 24hrs Laboratory Tests Test 06/25/18 17:09 06/25/18 20:19 06/26/18 01:55 06/26/18 05:12 Bedside Glucose 188 83 110 White Blood Count 6.6 # Red Blood Count 4.34 Hemoglobin 12.0 Hematocrit 38.7 Mean Corpuscular Volume 89.2 Mean Corpuscular 27.6 L Hemoglobin Mean Corpuscular 31.0 L Hemoglobin Concent Red Cell Distribution 16.2 H Width Platelet Count 793 H Mean Platelet Volume 9.6 Immature Granulocytes % 0.300 Neutrophils % 48.2 Lymphocytes % 43.8 Monocytes % 4.9 Eosinophils % 2.0 Basophils % 0.8 Nucleated Red Blood 0.0 Cells % Immature Granulocytes # 0.020 Neutrophils # 3.2 Lymphocytes # 2.9 Monocytes # 0.3 Eosinophils # 0.1 Basophils # 0.1 Nucleated Red Blood 0.0 Cells # Sodium Level 141 Potassium Level 3.6 Chloride Level 104 Carbon Dioxide Level 27 Anion Gap 10 Blood Urea Nitrogen 11 Creatinine 0.41 L Glucose Level 94 # Calcium Level 10.0 Phosphorus Level 3.7 Magnesium Level 1.8 Albumin 4.0 Test 06/26/18 07:37 06/26/18 11:39 Bedside Glucose 108 93 Medications Medications Current Medications Ondansetron HCl (Zofran Inj) 4 mg Q6H PRN IV NAUSEA AND/OR VOMITING Last administered on 06/26/18at 09:06; Admin Dose 4 MG; Start 06/09/18 at 00:30 Ipratropium [place] (Atrovent 0.02% (Neb)) 0.5 mg Q2H RESP THERAPY PRN NEB SHORTNESS OF BREATH Last administered on 06/14/18at 21:38; Admin Dose 0.5 MG; Start 06/09/18 at 00:30 Acetaminophen (Tylenol Liquid) 650 mg Q6H PRN PO PAIN LEVEL 1-3 OR FEVER Last administered on 06/18/18at 05:57; Admin Dose 650 MG; Start 06/09/18 at 00:30 Docusate Sodium (Colace) 100 mg Q12H PRN PO CONSTIPATION; Start 06/09/18 at 00:30 Bisacodyl (Dulcolax) 5 mg DAILY PRN PO CONSTIPATION; Start 06/09/18 at 00:30 Pantoprazole (Protonix Tab) 40 mg DAILY@06 PO Last administered on 06/26/18 06:31; Admin Dose 40 MG; Start 06/09/18 at 06:00 Diagnostic Test (Pha) (Accu-Chek) 1 ea 02 XX Last administered on 06/26/18at 01:56; Admin Dose 1 EA; Start 06/10/18 at 02:00 Insulin Aspart (Novolog Insulin Pen) NOVOLOG *MILD* ALGORITHM WITH MEALS BEDTIME SC Last administered on 06/25/18 17:14; Admin Dose 2 UNIT; Start 06/09/18 at 18:00 Miscellaneous Information 1 ea NOTE XX ; Start 06/09/18 at 14:30 Glucose (Glutose) 15 gm Q15M PRN PO DECREASED GLUCOSE; Start 06/09/18 at 14:30 Glucose (Glutose) 22.5 gm Q15M PRN PO DECREASED GLUCOSE; Start 06/09/18 at 14:30 Dextrose (D50w Syringe) 25 ml Q15M PRN IV DECREASED GLUCOSE Last administered on 06/15/18at 20:53; Admin Dose 25 ML; Start 06/09/18 at 14:30 Dextrose (D50w Syringe) 50 ml Q15M PRN IV DECREASED GLUCOSE; Start 06/09/18 at 14:30 Glucagon (Glucagen) 1 mg Q15M PRN IM DECREASED GLUCOSE; Start 06/09/18 at 14:30 Glucose (Glutose) 15 gm Q15M PRN BUCCAL DECREASED GLUCOSE; Start 06/09/18 at 14:30 Ferrous Sulfate (Ferrous Sulfate (Ec)) 325 mg DAILY PO Last administered on 06/26/18 08:30; Admin Dose 325 MG; Start 06/13/18 at 10:30; Stop 08/12/18 at 10:29 Levalbuterol (Xopenex Neb) 1.25 mg Q6H RESP THERAPY PRN HHN sob/wheezing Last administered on 06/14/18at 21:38; Admin Dose 1.25 MG; Start 06/14/18 at 09:00 Guaifenesin/ Dextromethorphan (Mucinex Dm) 1 tab BID PO Last administered on 06/26/18 08:30; Admin Dose 1 TAB; Start 06/14/18 at 09:30 Metformin HCl (Glucophage) 1,000 mg BID WITH MEALS PO Last administered on 06/26/18 07:39; Admin Dose 1,000 MG; Start 06/16/18 at 18:00 Ascorbic Acid (Vitamin C) 500 mg DAILY PO Last administered on 06/26/18 08:30; Admin Dose 500 MG; Start 06/17/18 at 09:00; Stop 08/16/18 at 08:59 Insulin Human NPH (Humulin N) 12 unit DAILY@20 SC Last administered on 06/25/18 20:28; Admin Dose 12 UNIT; Start 06/17/18 at 20:00 Guaifenesin/ Codeine Phosphate (Robitussin Ac Liquid Cup) 5 ml Q4H PRN PO cough Last administered on 06/18/18 20:25; Admin Dose 5 ML; Start 06/18/18 at 12:00 Linezolid (Zyvox) 600 mg BID PO Last administered on 06/26/18 08:30; Admin Dose 600 MG; Start 06/18/18 at 21:00 Fluconazole (Diflucan) 100 mg DAILY PO Last administered on 06/26/18 08:30; Admin Dose 100 MG; Start 06/21/18 at 09:00 Rifampin (Rifampin) 600 mg DAILY PO Last administered on 06/26/18 08:30; Admin Dose 600 MG; Start 06/20/18 at 14:30 Zolpidem Tartrate (Ambien) 10 mg HS PO Last administered on 06/25/18 20:21; Admin Dose 10 MG; Start 06/22/18 at 21:00 Multi-Ingredient Ointment (Eucerin Cream) 1 applic BID TOP Last administered on 06/26/18 08:33; Admin Dose 1 APPLIC; Start 06/24/18 at 10:00 Glimepiride (Amaryl) 4 mg QHS PO Last administered on 06/25/18 20:21; Admin Dose 4 MG; Start 06/25/18 at 21:00 Glimepiride (Amaryl) 2 mg AC BREAKFAST PO Last administered on 06/26/18 06:31; Admin Dose 2 MG; Start 06/26/18 at 07:00 ABDI JAY MD Jun 26, 2018 16:04
[2018-06-26] MEDS: GLIMEPIRIDE 4 MG TAB PO SCH (20:30)
[2018-06-26] MEDS: ZOLPIDEM 5 MG TAB PO SCH (20:30)
[2018-06-26] MEDS: NPH, HUMAN INSULIN ISOPHANE 3ML VIAL SC SCH (20:58)
[2018-06-27] VITALS (11 sets, daily range): BP systolic 100–110; BP diastolic 56–74; PULSE 90–124; RESP 17–18
[2018-06-27] MEDS: ACCU-CHEK XX SCH (01:15)
[2018-06-27] MEDS: PANTOPRAZOLE (EC) 40 MG TAB PO SCH (05:19)
[2018-06-27] MEDS: GLIMEPIRIDE 2 MG TAB PO SCH (06:07)
[2018-06-27] MEDS: INSULIN ASPART [NOVOLOG] 3 ML PEN SC SCH ×4 (07:45→20:54)
[2018-06-27] MEDS: metFORMIN 500 MG TAB PO SCH ×2 (07:46→17:08)
[2018-06-27] MEDS: GUAIFENESIN/DM (SR) TAB PO SCH ×2 (08:45→20:53)
[2018-06-27] MEDS: FLUCONAZOLE 100 MG TAB PO SCH (08:45)
[2018-06-27] MEDS: RIFAMPIN 300 MG CAP PO SCH (08:45)
[2018-06-27] MEDS: ASCORBIC ACID 500 MG TAB PO SCH (08:45)
[2018-06-27] MEDS: FERROUS SULFATE (EC) 325 MG TAB PO SCH (08:45)
[2018-06-27] MEDS: ZYVOX 600 MG TAB PO SCH ×2 (08:45→20:53)
[2018-06-27] MEDS: ONDANSETRON 4 MG INJ IV PRN (08:45)
[2018-06-27] MEDS: EUCERIN 113 GM CR TOP SCH ×2 (08:45→20:56)
--- NOTE | 2018-06-27 10:20 | CONS ---
Consult Date/Type/Reason Admit Date/Time Jun 08, 2018 at 23:53 Initial Consult Date 06/26/18 Type of Consultation: cv Requesting Provider: HAYDEE RAYO Date/Time of Note DATE: 06/27/18 TIME: 10:18 Subjective Cardiology follow-up progress Subjective: Discussed with the staff telemetry was reviewed patient remained sinus rhythm Discussed with multiple physicians. Patient is in isolation Objective: General: no acute distress HEENT: NC/AT. pupils are equal. round. NECK: NO JVD. no stridor. CV: RRR. systolic murmur; no gallop or rubs. PULM: no wheezing + rhonchi. GI: SOFT, NT, ND, no rebound or guarding Extremity: No significant B/L LE edema. no clubbing. neuro: awake and alert, OX3. Psych: calm and pleasant rectal: deferred Derm: Multiple tattoos Repeat echocardiogram on 06/26/2018 shows: Normal left ventricular systolic function. Normal left ventricular cavity size. Left ventricular wall thickness upper limits of normal. Ejection fraction is visually estimated at 60 %. Tissue Doppler/Mitral Doppler indices are consistent with impaired relaxation (Stage I diastolic dysfunction). Normal right ventricular size. Normal right ventricular systolic function. The left atrium is normal in size. The right atrium is normal in size. No significant valvular stenosis or regurgitation seen. Normal pericardium with no significant pericardial effusion. Objective Vitals Vital Signs Date Temp Pulse Resp B/P (MAP) Pulse Ox O2 O2 Flow FiO2 Time Delivery Rate 06/27/18 116 08:01 06/27/18 97.6 18 103/71 98 07:54 (82) 06/23/18 Room Air 15:46 Intake and Output 06/26/18 06/26/18 06/27/18 1515:00 23:00 07:00 IntakeIntake Total 1100 ml 600 ml BalanceBalance 1100 ml 600 ml Results/Medications Result Diagram: 06/27/18 0523 06/27/18 0523 Results 24 hrs Laboratory Tests Test 06/26/18 11:39 06/26/18 17:07 06/26/18 20:29 06/27/18 05:23 Bedside Glucose 93 75 85 White Blood Count 5.6 Red Blood Count 4.33 Hemoglobin 12.1 Hematocrit 38.8 Mean Corpuscular Volume 89.6 Mean Corpuscular 27.9 L Hemoglobin Mean Corpuscular 31.2 L Hemoglobin Concent Red Cell Distribution 16.5 H Width Platelet Count 673 H Mean Platelet Volume 9.4 Immature Granulocytes % 0.200 Neutrophils % 38.9 L Lymphocytes % 50.1 Monocytes % 6.3 Eosinophils % 3.2 Basophils % 1.3 Nucleated Red Blood 0.0 Cells % Immature Granulocytes # 0.010 Neutrophils # 2.2 Lymphocytes # 2.8 Monocytes # 0.4 Eosinophils # 0.2 Basophils # 0.1 Nucleated Red Blood 0.0 Cells # Sodium Level 142 Potassium Level 4.0 Chloride Level 104 Carbon Dioxide Level 26 Anion Gap 12 Blood Urea Nitrogen 10 Creatinine 0.44 Glucose Level 91 Calcium Level 9.5 Phosphorus Level 4.0 Magnesium Level 1.7 Albumin 3.7 Test 06/27/18 07:44 Bedside Glucose 109 Home Meds Unable to Obtain Active Prescriptions or Reported Meds Medications Current Medications Ondansetron HCl (Zofran Inj) 4 mg Q6H PRN IV NAUSEA AND/OR VOMITING Last administered on 06/27/18at 08:45; Admin Dose 4 MG; Start 06/09/18 at 00:30 Ipratropium [place] (Atrovent 0.02% (Neb)) 0.5 mg Q2H RESP THERAPY PRN NEB SHORTNESS OF BREATH Last administered on 06/14/18at 21:38; Admin Dose 0.5 MG; Start 06/09/18 at 00:30 Acetaminophen (Tylenol Liquid) 650 mg Q6H PRN PO PAIN LEVEL 1-3 OR FEVER Last administered on 06/18/18at 05:57; Admin Dose 650 MG; Start 06/09/18 at 00:30 Docusate Sodium (Colace) 100 mg Q12H PRN PO CONSTIPATION; Start 06/09/18 at 00:30 Bisacodyl (Dulcolax) 5 mg DAILY PRN PO CONSTIPATION; Start 06/09/18 at 00:30 Pantoprazole (Protonix Tab) 40 mg DAILY@06 PO Last administered on 06/27/18at 05:19; Admin Dose 40 MG; Start 06/09/18 at 06:00 Diagnostic Test (Pha) (Accu-Chek) 1 ea 02 XX Last administered on 06/26/18at 01:56; Admin Dose 1 EA; Start 06/10/18 at 02:00 Insulin Aspart (Novolog Insulin Pen) NOVOLOG *MILD* ALGORITHM WITH MEALS BEDTIME SC Last administered on 06/25/18at 17:14; Admin Dose 2 UNIT; Start 06/09/18 at 18:00 Miscellaneous Information 1 ea NOTE XX ; Start 06/09/18 at 14:30 Glucose (Glutose) 15 gm Q15M PRN PO DECREASED GLUCOSE; Start 06/09/18 at 14:30 Glucose (Glutose) 22.5 gm Q15M PRN PO DECREASED GLUCOSE; Start 06/09/18 at 14:30 Dextrose (D50w Syringe) 25 ml Q15M PRN IV DECREASED GLUCOSE Last administered on 06/15/18at 20:53; Admin Dose 25 ML; Start 06/09/18 at 14:30 Dextrose (D50w Syringe) 50 ml Q15M PRN IV DECREASED GLUCOSE; Start 06/09/18 at 14:30 Glucagon (Glucagen) 1 mg Q15M PRN IM DECREASED GLUCOSE; Start 06/09/18 at 14:30 Glucose (Glutose) 15 gm Q15M PRN BUCCAL DECREASED GLUCOSE; Start 06/09/18 at 14:30 Ferrous Sulfate (Ferrous Sulfate (Ec)) 325 mg DAILY PO Last administered on at 08:45; Admin Dose 325 MG; Start 06/13/18 at 10:30; Stop 08/12/18 at 10:29 Levalbuterol (Xopenex Neb) 1.25 mg Q6H RESP THERAPY PRN HHN sob/wheezing Last administered on 06/14/18at 21:38; Admin Dose 1.25 MG; Start 06/14/18 at 09:00 Guaifenesin/ Dextromethorphan (Mucinex Dm) 1 tab BID PO Last administered on 06/27/18at 08:45; Admin Dose 1 TAB; Start 06/14/18 at 09:30 Metformin HCl (Glucophage) 1,000 mg BID WITH MEALS PO Last administered on 06/27/18at 07:46; Admin Dose 1,000 MG; Start 06/16/18 at 18:00 Ascorbic Acid (Vitamin C) 500 mg DAILY PO Last administered on 06/27/18at 08:45; Admin Dose 500 MG; Start 06/17/18 at 09:00; Stop 08/16/18 at 08:59 Insulin Human NPH (Humulin N) 12 unit DAILY@20 SC Last administered on 06/26/18 20:58; Admin Dose 12 UNIT; Start 06/17/18 at 20:00 Guaifenesin/ Codeine Phosphate (Robitussin Ac Liquid Cup) 5 ml Q4H PRN PO cough Last administered on 06/18/18 20:25; Admin Dose 5 ML; Start 06/18/18 at 12:00 Linezolid (Zyvox) 600 mg BID PO Last administered on 06/27/18 08:45; Admin Dose 600 MG; Start 06/18/18 at 21:00 Fluconazole (Diflucan) 100 mg DAILY PO Last administered on 06/27/18 08:45; Admin Dose 100 MG; Start 06/21/18 at 09:00 Rifampin (Rifampin) 600 mg DAILY PO Last administered on 06/27/18 08:45; Admin Dose 600 MG; Start 06/20/18 at 14:30 Zolpidem Tartrate (Ambien) 10 mg HS PO Last administered on 06/26/18 20:30; Admin Dose 10 MG; Start 06/22/18 at 21:00 Multi-Ingredient Ointment (Eucerin Cream) 1 applic BID TOP Last administered on 06/27/18 08:45; Admin Dose 1 APPLIC; Start 06/24/18 at 10:00 Glimepiride (Amaryl) 4 mg QHS PO Last administered on 06/26/18 20:30; Admin Dose 4 MG; Start 06/25/18 at 21:00 Glimepiride (Amaryl) 2 mg AC BREAKFAST PO Last administered on 06/27/18 06:07; Admin Dose 2 MG; Start 06/26/18 at 07:00 Assessment/Plan Hospital Course (Demo Recall) 1. MRSA bacteremia 2. Pneumonia 3. Status post DKA 4. Diabetes 5. Anemia 6. Homelessness Recommendations: Diabetic management as per internal medicine and endocrine outside solar sales consultant. Antibiotic management as per infectious disease recommendations. We will schedule the patient for transesophageal echocardiogram tomorrow morning at 7 AM. Risks and alternative procedure discussed with the patient in detail. Risks including but not limited to risk of anesthesia related complication esophageal tear and rupture aspiration etc. discussed with her. Consent has been obtained. We will schedule the patient once anesthesia is available thank you for this referral. We will continue to follow along with you ABDI JAY MD FACC ABDI JAY MD Jun 27, 2018 10:20
--- NOTE | 2018-06-27 10:49 | CONS ---
Assessment/Plan Assessment/Plan Problems: (1) Diabetes mellitus type 2 in nonobese Status: Chronic Comment: Patient has very good glycemic control on a steady regimen. Of all the patient's medical issues this is presently is among the more stable once. As such I do not have significant major changes offer and I will sign off the case. Thank you for the opportunity to work with Ms. Marin Consultation Date/Type/Reason Admit Date/Time Jun 08, 2018 at 23:53 Initial Consult Date June 09, 2018 Type of Consult Endocrinology Reason for Consultation Diabetes mellitus type 2 presenting with DKA while acutely stressed due to MRSA bacteremia. Requesting Provider: HAYDEE RAYO Date/Time of Note DATE: 06/27/18 TIME: 10:44 24 HR Interval Summary Free Text/Dictation Patient is asleep in the hospital bed with her boyfriend Constitutional: no complaints Detailed Summary Neurologic: no complaints Endocrine: no complaints Exam/Review of Systems Exam Vitals Vital Signs Date Temp Pulse Resp B/P (MAP) Pulse Ox O2 O2 Flow FiO2 Time Delivery Rate 06/27/18 116 08:01 06/27/18 97.6 18 103/71 98 07:54 (82) 06/23/18 Room Air 15:46 Intake and Output 06/26/18 06/26/18 06/27/18 1515:00 23:00 07:00 IntakeIntake Total 1100 ml 600 ml BalanceBalance 1100 ml 600 ml Constitutional: alert, oriented Neck: supple, non-tender Cardiovascular: regular rate and rhythm, nl pulses Gastrointestinal: soft, nl liver, spleen, non-tender Extremities: normal pulses Results Result Diagram: 06/27/18 0523 06/27/18 0523 Results 24hrs Laboratory Tests Test 06/26/18 11:39 06/26/18 17:07 06/26/18 20:29 06/27/18 05:23 Bedside Glucose 93 75 85 White Blood Count 5.6 Red Blood Count 4.33 Hemoglobin 12.1 Hematocrit 38.8 Mean Corpuscular Volume 89.6 Mean Corpuscular 27.9 L Hemoglobin Mean Corpuscular 31.2 L Hemoglobin Concent Red Cell Distribution 16.5 H Width Platelet Count 673 H Mean Platelet Volume 9.4 Immature Granulocytes % 0.200 Neutrophils % 38.9 L Lymphocytes % 50.1 Monocytes % 6.3 Eosinophils % 3.2 Basophils % 1.3 Nucleated Red Blood 0.0 Cells % Immature Granulocytes # 0.010 Neutrophils # 2.2 Lymphocytes # 2.8 Monocytes # 0.4 Eosinophils # 0.2 Basophils # 0.1 Nucleated Red Blood 0.0 Cells # Sodium Level 142 Potassium Level 4.0 Chloride Level 104 Carbon Dioxide Level 26 Anion Gap 12 Blood Urea Nitrogen 10 Creatinine 0.44 Glucose Level 91 Calcium Level 9.5 Phosphorus Level 4.0 Magnesium Level 1.7 Albumin 3.7 Test 06/27/18 07:44 Bedside Glucose 109 Medications Medication Current Medications Ondansetron HCl (Zofran Inj) 4 mg Q6H PRN IV NAUSEA AND/OR VOMITING Last administered on 06/27/18 08:45; Admin Dose 4 MG; Start 06/09/18 at 00:30 Ipratropium [place] (Atrovent 0.02% (Neb)) 0.5 mg Q2H RESP THERAPY PRN NEB SHORTNESS OF BREATH Last administered on 06/14/18at 21:38; Admin Dose 0.5 MG; Start 06/09/18 at 00:30 Acetaminophen (Tylenol Liquid) 650 mg Q6H PRN PO PAIN LEVEL 1-3 OR FEVER Last administered on 06/18/18at 05:57; Admin Dose 650 MG; Start 06/09/18 at 00:30 Docusate Sodium (Colace) 100 mg Q12H PRN PO CONSTIPATION; Start 06/09/18 at 00:30 Bisacodyl (Dulcolax) 5 mg DAILY PRN PO CONSTIPATION; Start 06/09/18 at 00:30 Pantoprazole (Protonix Tab) 40 mg DAILY@06 PO Last administered on 06/27/18 05:19; Admin Dose 40 MG; Start 06/09/18 at 06:00 Diagnostic Test (Pha) (Accu-Chek) 1 ea 02 XX Last administered on 06/26/18at 01:56; Admin Dose 1 EA; Start 06/10/18 at 02:00 Insulin Aspart (Novolog Insulin Pen) NOVOLOG *MILD* ALGORITHM WITH MEALS BEDTIME SC Last administered on 06/25/18at 17:14; Admin Dose 2 UNIT; Start 06/09/18 at 18:00 Miscellaneous Information 1 ea NOTE XX ; Start 06/09/18 at 14:30 Glucose (Glutose) 15 gm Q15M PRN PO DECREASED GLUCOSE; Start 06/09/18 at 14:30 Glucose (Glutose) 22.5 gm Q15M PRN PO DECREASED GLUCOSE; Start 06/09/18 at 14:30 Dextrose (D50w Syringe) 25 ml Q15M PRN IV DECREASED GLUCOSE Last administered on 06/15/18 20:53; Admin Dose 25 ML; Start 06/09/18 at 14:30 Dextrose (D50w Syringe) 50 ml Q15M PRN IV DECREASED GLUCOSE; Start 06/09/18 at 14:30 Glucagon (Glucagen) 1 mg Q15M PRN IM DECREASED GLUCOSE; Start 06/09/18 at 14:30 Glucose (Glutose) 15 gm Q15M PRN BUCCAL DECREASED GLUCOSE; Start 06/09/18 at 14:30 Ferrous Sulfate (Ferrous Sulfate (Ec)) 325 mg DAILY PO Last administered on 06/27/18 08:45; Admin Dose 325 MG; Start 06/13/18 at 10:30; Stop 08/12/18 at 10:29 Levalbuterol (Xopenex Neb) 1.25 mg Q6H RESP THERAPY PRN HHN sob/wheezing Last administered on 06/14/18 21:38; Admin Dose 1.25 MG; Start 06/14/18 at 09:00 Guaifenesin/ Dextromethorphan (Mucinex Dm) 1 tab BID PO Last administered on 06/27/18 08:45; Admin Dose 1 TAB; Start 06/14/18 at 09:30 Metformin HCl (Glucophage) 1,000 mg BID WITH MEALS PO Last administered on 06/27/18 07:46; Admin Dose 1,000 MG; Start 06/16/18 at 18:00 Ascorbic Acid (Vitamin C) 500 mg DAILY PO Last administered on 06/27/18 08:45; Admin Dose 500 MG; Start 06/17/18 at 09:00; Stop 08/16/18 at 08:59 Insulin Human NPH (Humulin N) 12 unit DAILY@20 SC Last administered on 06/26/18 20:58; Admin Dose 12 UNIT; Start 06/17/18 at 20:00 Guaifenesin/ Codeine Phosphate (Robitussin Ac Liquid Cup) 5 ml Q4H PRN PO cough Last administered on 06/18/18 20:25; Admin Dose 5 ML; Start 06/18/18 at 12:00 Linezolid (Zyvox) 600 mg BID PO Last administered on 06/27/18 08:45; Admin Dose 600 MG; Start 06/18/18 at 21:00 Fluconazole (Diflucan) 100 mg DAILY PO Last administered on 06/27/18 08:45; Admin Dose 100 MG; Start 06/21/18 at 09:00 Rifampin (Rifampin) 600 mg DAILY PO Last administered on 06/27/18 08:45; Admin Dose 600 MG; Start 06/20/18 at 14:30 Zolpidem Tartrate (Ambien) 10 mg HS PO Last administered on 06/26/18 20:30; Admin Dose 10 MG; Start 06/22/18 at 21:00 Multi-Ingredient Ointment (Eucerin Cream) 1 applic BID TOP Last administered on 06/27/18 08:45; Admin Dose 1 APPLIC; Start 06/24/18 at 10:00 Glimepiride (Amaryl) 4 mg QHS PO Last administered on 06/26/18 20:30; Admin Dose 4 MG; Start 06/25/18 at 21:00 Glimepiride (Amaryl) 2 mg AC BREAKFAST PO Last administered on 06/27/18 06:07; Admin Dose 2 MG; Start 06/26/18 at 07:00 STEVE AGGARWAL MD Jun 27, 2018 10:49
--- NOTE | 2018-06-27 11:25 | CONS ---
Consult Date/Type/Reason Admit Date/Time Jun 08, 2018 at 23:53 Initial Consult Date Type of Consult Pulmonary Requesting Provider: HAYDEE RAYO Date/Time of Note DATE: 06/27/18 TIME: 11:22 Subjective Patient remained stable. No new events. Objective Vital Signs Date Temp Pulse Resp B/P (MAP) Pulse Ox O2 O2 Flow FiO2 Time Delivery Rate 06/27/18 116 08:01 06/27/18 97.6 18 103/71 98 07:54 (82) 06/23/18 Room Air 15:46 Intake and Output 06/26/18 06/26/18 06/27/18 1515:00 23:00 07:00 IntakeIntake Total 1100 ml 600 ml BalanceBalance 1100 ml 600 ml Exam GENERAL: VITAL SIGNS: per chart NECK: Supple. No JVD or lymphadenopathy. CARDIAC EXAM: S1, S2. No added sounds or murmurs. CHEST: clear bilaterally, No added sounds, rales or wheezes ABDOMEN: Soft, nontender. No guarding or rebound. EXTREMITIES: No cyanosis, clubbing or edema. NEUROLOGIC: Generalized weakness. No focal deficits. Vent Setting Fraction of Inspired Oxygen pe: 21 Results/Medications Result Diagram: 06/27/18 0523 06/27/18 0523 Results 24 hrs Laboratory Tests Test 06/26/18 11:39 06/26/18 17:07 06/26/18 20:29 06/27/18 05:23 Bedside Glucose 93 75 85 White Blood Count 5.6 Red Blood Count 4.33 Hemoglobin 12.1 Hematocrit 38.8 Mean Corpuscular Volume 89.6 Mean Corpuscular 27.9 L Hemoglobin Mean Corpuscular 31.2 L Hemoglobin Concent Red Cell Distribution 16.5 H Width Platelet Count 673 H Mean Platelet Volume 9.4 Immature Granulocytes % 0.200 Neutrophils % 38.9 L Lymphocytes % 50.1 Monocytes % 6.3 Eosinophils % 3.2 Basophils % 1.3 Nucleated Red Blood 0.0 Cells % Immature Granulocytes # 0.010 Neutrophils # 2.2 Lymphocytes # 2.8 Monocytes # 0.4 Eosinophils # 0.2 Basophils # 0.1 Nucleated Red Blood 0.0 Cells # Sodium Level 142 Potassium Level 4.0 Chloride Level 104 Carbon Dioxide Level 26 Anion Gap 12 Blood Urea Nitrogen 10 Creatinine 0.44 Glucose Level 91 Calcium Level 9.5 Phosphorus Level 4.0 Magnesium Level 1.7 Albumin 3.7 Test 06/27/18 07:44 Bedside Glucose 109 Medications Current Medications Ondansetron HCl (Zofran Inj) 4 mg Q6H PRN IV NAUSEA AND/OR VOMITING Last administered on 06/27/18 08:45; Admin Dose 4 MG; Start 06/09/18 at 00:30 Ipratropium [place] (Atrovent 0.02% (Neb)) 0.5 mg Q2H RESP THERAPY PRN NEB SHORTNESS OF BREATH Last administered on 06/14/18at 21:38; Admin Dose 0.5 MG; Start 06/09/18 at 00:30 Acetaminophen (Tylenol Liquid) 650 mg Q6H PRN PO PAIN LEVEL 1-3 OR FEVER Last administered on 06/18/18 05:57; Admin Dose 650 MG; Start 06/09/18 at 00:30 Docusate Sodium (Colace) 100 mg Q12H PRN PO CONSTIPATION; Start 06/09/18 at 0 0:30 Bisacodyl (Dulcolax) 5 mg DAILY PRN PO CONSTIPATION; Start 06/09/18 at 00:30 Pantoprazole (Protonix Tab) 40 mg DAILY@06 PO Last administered on 06/27/18 05:19; Admin Dose 40 MG; Start 06/09/18 at 06:00 Diagnostic Test (Pha) (Accu-Chek) 1 ea 02 XX Last administered on 06/26/18at 01:56; Admin Dose 1 EA; Start 06/10/18 at 02:00 Insulin Aspart (Novolog Insulin Pen) NOVOLOG *MILD* ALGORITHM WITH MEALS BEDTIME SC Last administered on 06/25/18at 17:14; Admin Dose 2 UNIT; Start 06/09/18 at 18:00 Miscellaneous Information 1 ea NOTE XX ; Start 06/09/18 at 14:30 Glucose (Glutose) 15 gm Q15M PRN PO DECREASED GLUCOSE; Start 06/09/18 at 14:30 Glucose (Glutose) 22.5 gm Q15M PRN PO DECREASED GLUCOSE; Start 06/09/18 at 14:30 Dextrose (D50w Syringe) 25 ml Q15M PRN IV DECREASED GLUCOSE Last administered on 06/15/18at 20:53; Admin Dose 25 ML; Start 06/09/18 at 14:30 Dextrose (D50w Syringe) 50 ml Q15M PRN IV DECREASED GLUCOSE; Start 06/09/18 at 14:30 Glucagon (Glucagen) 1 mg Q15M PRN IM DECREASED GLUCOSE; Start 06/09/18 at 14:30 Glucose (Glutose) 15 gm Q15M PRN BUCCAL DECREASED GLUCOSE; Start 06/09/18 at 14:30 Ferrous Sulfate (Ferrous Sulfate (Ec)) 325 mg DAILY PO Last administered on 06/27/18 08:45; Admin Dose 325 MG; Start 06/13/18 at 10:30; Stop 08/12/18 at 10:29 Levalbuterol (Xopenex Neb) 1.25 mg Q6H RESP THERAPY PRN HHN sob/wheezing Last administered on 06/14/18 21:38; Admin Dose 1.25 MG; Start 06/14/18 at 09:00 Guaifenesin/ Dextromethorphan (Mucinex Dm) 1 tab BID PO Last administered on 06/27/18 08:45; Admin Dose 1 TAB; Start 06/14/18 at 09:30 Metformin HCl (Glucophage) 1,000 mg BID WITH MEALS PO Last administered on 06/27/18 07:46; Admin Dose 1,000 MG; Start 06/16/18 at 18:00 Ascorbic Acid (Vitamin C) 500 mg DAILY PO Last administered on 06/27/18 08:45; Admin Dose 500 MG; Start 06/17/18 at 09:00; Stop 08/16/18 at 08:59 Insulin Human NPH (Humulin N) 12 unit DAILY@20 SC Last administered on 06/26/18 20:58; Admin Dose 12 UNIT; Start 06/17/18 at 20:00 Guaifenesin/ Codeine Phosphate (Robitussin Ac Liquid Cup) 5 ml Q4H PRN PO cough Last administered on 06/18/18 20:25; Admin Dose 5 ML; Start 06/18/18 at 12:00 Linezolid (Zyvox) 600 mg BID PO Last administered on 06/27/18 08:45; Admin Dose 600 MG; Start 06/18/18 at 21:00 Fluconazole (Diflucan) 100 mg DAILY PO Last administered on 06/27/18 08:45; Admin Dose 100 MG; Start 06/21/18 at 09:00 Rifampin (Rifampin) 600 mg DAILY PO Last administered on 06/27/18 08:45; Admin Dose 600 MG; Start 06/20/18 at 14:30 Zolpidem Tartrate (Ambien) 10 mg HS PO Last administered on 06/26/18 20:30; Admin Dose 10 MG; Start 06/22/18 at 21:00 Multi-Ingredient Ointment (Eucerin Cream) 1 applic BID TOP Last administered on 06/27/18 08:45; Admin Dose 1 APPLIC; Start 06/24/18 at 10:00 Glimepiride (Amaryl) 4 mg QHS PO Last administered on 06/26/18 20:30; Admin Dose 4 MG; Start 06/25/18 at 21:00 Glimepiride (Amaryl) 2 mg AC BREAKFAST PO Last administered on 06/27/18 06:07; Admin Dose 2 MG; Start 06/26/18 at 07:00 Assessment/Plan Hospital Course (Demo Recall) IMP: 1. Multifocal airspace opacities--> now evolution of cavitary nodules--findings concerning for septic pulmonary emboli. RECS: 1. Abx per ID, chest x-ray shows improvement left upper lobe. 2. Await QuantiFERON gold. Discharge planning. ALICIA HAZEL MD, [facility] Jun 27, 2018 11:25
--- NOTE | 2018-06-27 16:08 | PN ---
Date/Time of Note Date/Time of Note DATE: 06/27/18 TIME: 16:07 Objective Vitals Vital Signs Date Temp Pulse Resp B/P (MAP) Pulse Ox O2 O2 Flow FiO2 Time Delivery Rate 06/27/18 98.3 118 18 109/74 99 16:04 (86) 06/23/18 Room Air 15:46 Intake and Output 06/26/18 06/26/18 06/27/18 1515:00 23:00 07:00 IntakeIntake Total 1100 ml 600 ml BalanceBalance 1100 ml 600 ml Results Result Diagram: 06/27/1852206/27/18522 Medications Medications Current Medications Ondansetron HCl (Zofran Inj) 4 mg Q6H PRN IV NAUSEA AND/OR VOMITING Last administered on 06/27/18at 08:45; Admin Dose 4 MG; Start 06/09/18 at 00:30 Ipratropium [place] (Atrovent 0.02% (Neb)) 0.5 mg Q2H RESP THERAPY PRN NEB SHORTNESS OF BREATH Last administered on 06/14/18at 21:38; Admin Dose 0.5 MG; Start 06/09/18 at 00:30 Acetaminophen (Tylenol Liquid) 650 mg Q6H PRN PO PAIN LEVEL 1-3 OR FEVER Last administered on 06/18/18 05:57; Admin Dose 650 MG; Start 06/09/18 at 00:30 Docusate Sodium (Colace) 100 mg Q12H PRN PO CONSTIPATION; Start 06/09/18 at 00:30 Bisacodyl (Dulcolax) 5 mg DAILY PRN PO CONSTIPATION; Start 06/09/18 at 00:30 Pantoprazole (Protonix Tab) 40 mg DAILY@06 PO Last administered on 06/27/18 05:19; Admin Dose 40 MG; Start 06/09/18 at 06:00 Diagnostic Test (Pha) (Accu-Chek) 1 ea 02 XX Last administered on 06/26/18at 01 :56; Admin Dose 1 EA; Start 06/10/18 at 02:00 Insulin Aspart (Novolog Insulin Pen) NOVOLOG *MILD* ALGORITHM WITH MEALS BEDTIME SC Last administered on 06/25/18 17:14; Admin Dose 2 UNIT; Start at 18:00 Miscellaneous Information 1 ea NOTE XX ; Start 06/09/18 at 14:30 Glucose (Glutose) 15 gm Q15M PRN PO DECREASED GLUCOSE; Start 06/09/18 at 14:30 Glucose (Glutose) 22.5 gm Q15M PRN PO DECREASED GLUCOSE; Start 06/09/18 at 14:30 Dextrose (D50w Syringe) 25 ml Q15M PRN IV DECREASED GLUCOSE Last administered on 06/15/18at 20:53; Admin Dose 25 ML; Start 06/09/18 at 14:30 Dextrose (D50w Syringe) 50 ml Q15M PRN IV DECREASED GLUCOSE; Start 06/09/18 at 14:30 Glucagon (Glucagen) 1 mg Q15M PRN IM DECREASED GLUCOSE; Start 06/09/18 at 14:30 Glucose (Glutose) 15 gm Q15M PRN BUCCAL DECREASED GLUCOSE; Start 06/09/18 at 14:30 Ferrous Sulfate (Ferrous Sulfate (Ec)) 325 mg DAILY PO Last administered on 06/27/18 08:45; Admin Dose 325 MG; Start 06/13/18 at 10:30; Stop 08/12/18 at 10:29 Levalbuterol (Xopenex Neb) 1.25 mg Q6H RESP THERAPY PRN HHN sob/wheezing Last administered on 06/14/18at 21:38; Admin Dose 1.25 MG; Start 06/14/18 at 09:00 Guaifenesin/ Dextromethorphan (Mucinex Dm) 1 tab BID PO Last administered on 06/27/18 08:45; Admin Dose 1 TAB; Start 06/14/18 at 09:30 Metformin HCl (Glucophage) 1,000 mg BID WITH MEALS PO Last administered on 06/27/18at 07:46; Admin Dose 1,000 MG; Start 06/16/18 at 18:00 Ascorbic Acid (Vitamin C) 500 mg DAILY PO Last administered on 06/27/18 08:45; Admin Dose 500 MG; Start 06/17/18 at 09:00; Stop 08/16/18 at 08:59 Insulin Human NPH (Humulin N) 12 unit DAILY@20 SC Last administered on 06/26/18at 20:58; Admin Dose 12 UNIT; Start 06/17/18 at 20:00 Guaifenesin/ Codeine Phosphate (Robitussin Ac Liquid Cup) 5 ml Q4H PRN PO cough Last administered on 06/18/18 20:25; Admin Dose 5 ML; Start 06/18/18 at 12:00 Linezolid (Zyvox) 600 mg BID PO Last administered on 06/27/18 08:45; Admin Dose 600 MG; Start 06/18/18 at 21:00 Fluconazole (Diflucan) 100 mg DAILY PO Last administered on 06/27/18 08:45; Admin Dose 100 MG; Start 06/21/18 at 09:00 Rifampin (Rifampin) 600 mg DAILY PO Last administered on 06/27/18 08:45; Admin Dose 600 MG; Start 06/20/18 at 14:30 Zolpidem Tartrate (Ambien) 10 mg HS PO Last administered on 06/26/18 20:30; Admin Dose 10 MG; Start 06/22/18 at 21:00 Multi-Ingredient Ointment (Eucerin Cream) 1 applic BID TOP Last administered on 06/27/18 08:45; Admin Dose 1 APPLIC; Start 06/24/18 at 10:00 Glimepiride (Amaryl) 4 mg QHS PO Last administered on 06/26/18 20:30; Admin Dose 4 MG; Start 06/25/18 at 21:00 Glimepiride (Amaryl) 2 mg AC BREAKFAST PO Last administered on 06/27/18 06:07; Admin Dose 2 MG; Start 06/26/18 at 07:00 VTE Prophylaxis Risk score (from [facility]0 risk: 3 SCD applied (from [facility]): No SCD contraindication: other Lines/Catheters IV Catheter Type: Garcia in Place: No Assessment/Plan Hospital Course Subjective Patient still having some resp discomfort, otherwise doing okay, no acute complaints Objective Physical exam General: Patient is laying in bed and answers questions appropriately Mentation: Patient is alert and oriented 4, Head: Normocephalic atraumatic Eyes: EOMI, pupils reactive to light Neck: Supple, nontender, midline Respiratory: Coarse to auscultation bilaterally Cardiovascular: regular rate, no obvious murmurs Gastrointestinal: non-tender to palpation, bowel sounds heard. Neurological: Moves all extremities spontaneously Skin: No new skin lesions Assessment/Plan 1. MRSA bacteremia - Repeat blood culture negative. Remains afebrile with nl WBC. - ID on board and appreciate recommendations. Continue on current antibiotics 2. Tachycardia - most likely secondary to pulmonary process 3. Poorly controlled diabetes - A1c noted - continues to fluctuate based on diet compliance - Admits to eating outside food since current diet is very bland. Discussed need to follow low sugar, low carb diet - Endocrinology on board and appreciate recommendations. Continue on current insulin and glimepiride. 4. Extensive bilateral multilobar pneumonia - Patient found with MRSA in sputum and CT scan showing cavitating lesions but improvement in bilateral infiltrate - Pulm on board and continue current treatment. Cocci studies still pending. After review of recent CT scan concern for septic emboli. Repeat ECHO ordered with focus on tricuspid valve to evaluate for vegetation. If negative, will need IRVING - Repeat CT scan performed this am showing "Multifocal bilateral areas of pneumonia are again present and have diminished in overall size however there is interval development of multiple foci of lucencies within the areas of cons olidation suggestive for bronchiectasis or developing small cavitary lesions." - ID recommendations appreciated 5. Homelessness - SW on board - patient states she plans to go to rehab following discharge 6. History of meth abuse - Patient states last use was 2 weeks prior to admission. Counseled on cessation. 7. Tobacco use - Cessation advised. 8. Iron Deficient anemia. - Continue oral iron. - H&H stable. 9. Mild asthma. - Currently stable - nebs PRN 10. Disposition -irving scheduled for tomorrow HAYDEE RAYO Jun 27, 2018 16:08
--- NOTE | 2018-06-27 16:45 | CONS ---
Assessment/Plan Assessment/Plan Hospital Course (Demo Recall) No acute events AFB smears negative 3 sets, cocci neg Microbiology: Blood culture on June 08 grew MRSA, repeat blood cultures negative, sputum culture on June 16 grew Talia albicans and MRSA. Serology for HIV negative Antimicrobials: Zyvox Rifampin Diflucan Physical examination: Well-developed middle-aged woman who is alert in no distress. Head atraumatic normocephalic sclera nonicteric. Neck is supple chest rise symmetrical breath sounds diminished bases. Heart S1-S2. Abdomen soft bowel sounds present. Extremities without cyanosis. Assessment: 1. Resolving sepsis 2. MRSA bacteremia on admission 3. Necrotizing MRSA pneumonia with areas of cavitation per CT ?septic emboli 4. Homelessness 5. Poorly controlled diabetes 6. History of recent meth amphetamine abuse Plan: Clinically stable, dc Diflucan, continue other abx, pending BITA tomorrow DW DR Love Consultation Date/Type/Reason Admit Date/Time Jun 08, 2018 at 23:53 Initial Consult Date Type of Consult id Requesting Provider: HAYDEE RAYO Date/Time of Note DATE: 06/27/18 TIME: 16:44 Exam/Review of Systems Exam Vitals Vital Signs Date Temp Pulse Resp B/P (MAP) Pulse Ox O2 O2 Flow FiO2 Time Delivery Rate 06/27/18 98.3 118 18 109/74 99 16:04 (86) 06/23/18 Room Air 15:46 Intake and Output 06/26/18 06/26/18 06/27/18 1515:00 23:00 07:00 IntakeIntake Total 1100 ml 600 ml BalanceBalance 1100 ml 600 ml Results Result Diagram: 06/27/18 0523 06/27/18 0523 Results 24hrs Laboratory Tests Test 06/26/18 17:07 06/26/18 20:29 06/27/18 05:23 06/27/18 07:44 Bedside Glucose 75 85 109 White Blood Count 5.6 Red Blood Count 4.33 Hemoglobin 12.1 Hematocrit 38.8 Mean Corpuscular Volume 89.6 Mean Corpuscular 27.9 L Hemoglobin Mean Corpuscular 31.2 L Hemoglobin Concent Red Cell Distribution 16.5 H Width Platelet Count 673 H Mean Platelet Volume 9.4 Immature Granulocytes % 0.200 Neutrophils % 38.9 L Lymphocytes % 50.1 Monocytes % 6.3 Eosinophils % 3.2 Basophils % 1.3 Nucleated Red Blood 0.0 Cells % Immature Granulocytes # 0.010 Neutrophils # 2.2 Lymphocytes # 2.8 Monocytes # 0.4 Eosinophils # 0.2 Basophils # 0.1 Nucleated Red Blood 0.0 Cells # Sodium Level 142 Potassium Level 4.0 Chloride Level 104 Carbon Dioxide Level 26 Anion Gap 12 Blood Urea Nitrogen 10 Creatinine 0.44 Glucose Level 91 Calcium Level 9.5 Phosphorus Level 4.0 Magnesium Level 1.7 Albumin 3.7 Test 06/27/18 11:43 Bedside Glucose 92 Medications Medication Current Medications Ondansetron HCl (Zofran Inj) 4 mg Q6H PRN IV NAUSEA AND/OR VOMITING Last administered on 06/27/18at 08:45; Admin Dose 4 MG; Start 06/09/18 at 00:30 Ipratropium Sprague (Atrovent 0.02% (Neb)) 0.5 mg Q2H RESP THERAPY PRN NEB SHORTNESS OF BREATH Last administered on 06/14/18at 21:38; Admin Dose 0.5 MG; Start 06/09/18 at 00:30 Acetaminophen (Tylenol Liquid) 650 mg Q6H PRN PO PAIN LEVEL 1-3 OR FEVER Last administered on 06/18/18at 05:57; Admin Dose 650 MG; Start 06/09/18 at 00:30 Docusate Sodium (Colace) 100 mg Q12H PRN PO CONSTIPATION; Start 06/09/18 at 00:30 Bisacodyl (Dulcolax) 5 mg DAILY PRN PO CONSTIPATION; Start 06/09/18 at 00:30 Pantoprazole (Protonix Tab) 40 mg DAILY@06 PO Last administered on 06/27/18at 05:19; Admin Dose 40 MG; Start 06/09/18 at 06:00 Diagnostic Test (Pha) (Accu-Chek) 1 ea 02 XX Last administered on 06/26/18at 01:56; Admin Dose 1 EA; Start 06/10/18 at 02:00 Insulin Aspart (Novolog Insulin Pen) NOVOLOG *MILD* ALGORITHM WITH MEALS BEDTIME SC Last administered on 06/25/18at 17:14; Admin Dose 2 UNIT; Start 06/09/18 at 18:00 Miscellaneous Information 1 ea NOTE XX ; Start 06/09/18 at 14:30 Glucose (Glutose) 15 gm Q15M PRN PO DECREASED GLUCOSE; Start 06/09/18 at 14:30 Glucose (Glutose) 22.5 gm Q15M PRN PO DECREASED GLUCOSE; Start 06/09/18 at 14:30 Dextrose (D50w Syringe) 25 ml Q15M PRN IV DECREASED GLUCOSE Last administered on 06/15/18 20:53; Admin Dose 25 ML; Start 06/09/18 at 14:30 Dextrose (D50w Syringe) 50 ml Q15M PRN IV DECREASED GLUCOSE; Start 06/09/18 at 14:30 Glucagon (Glucagen) 1 mg Q15M PRN IM DECREASED GLUCOSE; Start 06/09/18 at 14:30 Glucose (Glutose) 15 gm Q15M PRN BUCCAL DECREASED GLUCOSE; Start 06/09/18 at 14:30 Ferrous Sulfate (Ferrous Sulfate (Ec)) 325 mg DAILY PO Last administered on 06/27/18 08:45; Admin Dose 325 MG; Start 06/13/18 at 10:30; Stop 08/12/18 at 10:29 Levalbuterol (Xopenex Neb) 1.25 mg Q6H RESP THERAPY PRN HHN sob/wheezing Last administered on 06/14/18 21:38; Admin Dose 1.25 MG; Start 06/14/18 at 09:00 Guaifenesin/ Dextromethorphan (Mucinex Dm) 1 tab BID PO Last administered on 06/27/18 08:45; Admin Dose 1 TAB; Start 06/14/18 at 09:30 Metformin HCl (Glucophage) 1,000 mg BID WITH MEALS PO Last administered on 06/27/18 07:46; Admin Dose 1,000 MG; Start 06/16/18 at 18:00 Ascorbic Acid (Vitamin C) 500 mg DAILY PO Last administered on 06/27/18 08:45; Admin Dose 500 MG; Start 06/17/18 at 09:00; Stop 08/16/18 at 08:59 Insulin Human NPH (Humulin N) 12 unit DAILY@20 SC Last administered on 06/26/18 20:58; Admin Dose 12 UNIT; Start 06/17/18 at 20:00 Guaifenesin/ Codeine Phosphate (Robitussin Ac Liquid Cup) 5 ml Q4H PRN PO cough Last administered on 06/18/18 20:25; Admin Dose 5 ML; Start 06/18/18 at 12:00 Linezolid (Zyvox) 600 mg BID PO Last administered on 06/27/18 08:45; Admin Dose 600 MG; Start 06/18/18 at 21:00 Fluconazole (Diflucan) 100 mg DAILY PO Last administered on 06/27/18 08:45; Admin Dose 100 MG; Start 06/21/18 at 09:00 Rifampin (Rifampin) 600 mg DAILY PO Last administered on 06/27/18 08:45; Admin Dose 600 MG; Start 06/20/18 at 14:30 Zolpidem Tartrate (Ambien) 10 mg HS PO Last administered on 06/26/18 20:30; Admin Dose 10 MG; Start 06/22/18 at 21:00 Multi-Ingredient Ointment (Eucerin Cream) 1 applic BID TOP Last administered on 06/27/18 08:45; Admin Dose 1 APPLIC; Start 06/24/18 at 10:00 Glimepiride (Amaryl) 4 mg QHS PO Last administered on 06/26/18 20:30; Admin Dose 4 MG; Start 06/25/18 at 21:00 Glimepiride (Amaryl) 2 mg AC BREAKFAST PO Last administered on 06/27/18 06:07; Admin Dose 2 MG; Start 06/26/18 at 07:00 JOSE GOVEA NP Jun 27, 2018 16:45
[2018-06-27] MEDS: GLIMEPIRIDE 4 MG TAB PO SCH (20:54)
[2018-06-27] MEDS: ZOLPIDEM 5 MG TAB PO SCH (20:54)
[2018-06-27] MEDS: NPH, HUMAN INSULIN ISOPHANE 3ML VIAL SC SCH (21:11)
[2018-06-28] VITALS (12 sets, daily range): BP systolic 97–111; BP diastolic 56–75; PULSE 76–110; RESP 16–18
[2018-06-28] MEDS: ACETAMINOPHEN 650MG/20.3ML CUP PO PRN ×2 (01:20→20:12)
[2018-06-28] MEDS: ACCU-CHEK XX SCH (01:24)
[2018-06-28] MEDS: PANTOPRAZOLE (EC) 40 MG TAB PO SCH (05:47)
[2018-06-28] MEDS: GLIMEPIRIDE 2 MG TAB PO SCH (07:00)
--- NOTE | 2018-06-28 07:08 | PREAC ---
Date/Time of Note Date/Time of Note DATE: 06/28/18 TIME: 07:07 Anesthesia Eval and Record Evaluation Time Pre-Procedure Interview DATE: 06/28/18 TIME: 07:07 Age 42 Sex female NPO: 8 hrs Preoperative diagnosis Bacteremia R/O Endocarditis Planned procedure BITA Past Medical History Past Medical History: Includes Endo: Diabetes GI: GERD Heme: Anemia Recreational drugs: Other (Meeth Abuse) Surgery & Anesthesia Issues No known issue Meds Anticoagulation: No Beta Seda within 24 hr: No Reason Beta Seda not given: Pt. not on B-Seda Unable to Obtain Active Prescriptions or Reported Meds Current Medications Ondansetron HCl (Zofran Inj) 4 mg Q6H PRN IV NAUSEA AND/OR VOMITING Last administered on 06/27/18at 08:45; Admin Dose 4 MG; Start 06/09/18 at 00:30 Ipratropium [place] (Atrovent 0.02% (Neb)) 0.5 mg Q2H RESP THERAPY PRN NEB SHORTNESS OF BREATH Last administered on 06/14/18at 21:38; Admin Dose 0.5 MG; Start 06/09/18 at 00:30 Acetaminophen (Tylenol Liquid) 650 mg Q6H PRN PO PAIN LEVEL 1-3 OR FEVER Last administered on 06/28/18at 01:20; Admin Dose 650 MG; Start 06/09/18 at 00:30 Docusate Sodium (Colace) 100 mg Q12H PRN PO CONSTIPATION; Start 06/09/18 at 00:30 Bisacodyl (Dulcolax) 5 mg DAILY PRN PO CONSTIPATION; Start 06/09/18 at 00:30 Pantoprazole (Protonix Tab) 40 mg DAILY@06 PO Last administered on 06/27/18at 05:19; Admin Dose 40 MG; Start 06/09/18 at 06:00 Diagnostic Test (Pha) (Accu-Chek) 1 ea 02 XX Last administered on 06/26/18at 01:56; Admin Dose 1 EA; Start 06/10/18 at 02:00 Insulin Aspart (Novolog Insulin Pen) NOVOLOG *MILD* ALGORITHM WITH MEALS BEDTIME SC Last administered on 06/27/18at 17:35; Admin Dose 1 UNIT; Start 06/09/18 at 18:00 Miscellaneous Information 1 ea NOTE XX ; Start 06/09/18 at 14:30 Glucose (Glutose) 15 gm Q15M PRN PO DECREASED GLUCOSE; Start 06/09/18 at 14:30 Glucose (Glutose) 22.5 gm Q15M PRN PO DECREASED GLUCOSE; Start 06/09/18 at 14:30 Dextrose (D50w Syringe) 25 ml Q15M PRN IV DECREASED GLUCOSE Last administered on 06/15/18 20:53; Admin Dose 25 ML; Start 06/09/18 at 14:30 Dextrose (D50w Syringe) 50 ml Q15M PRN IV DECREASED GLUCOSE; Start 06/09/18 at 14:30 Glucagon (Glucagen) 1 mg Q15M PRN IM DECREASED GLUCOSE; Start 06/09/18 at 14:30 Glucose (Glutose) 15 gm Q15M PRN BUCCAL DECREASED GLUCOSE; Start 06/09/18 at 14:30 Ferrous Sulfate (Ferrous Sulfate (Ec)) 325 mg DAILY PO Last administered on 06/27/18 08:45; Admin Dose 325 MG; Start 06/13/18 at 10:30; Stop 08/12/18 at 10:29 Levalbuterol (Xopenex Neb) 1.25 mg Q6H RESP THERAPY PRN HHN sob/wheezing Last administered on 06/14/18 21:38; Admin Dose 1.25 MG; Start 06/14/18 at 09:00 Guaifenesin/ Dextromethorphan (Mucinex Dm) 1 tab BID PO Last administered on 06/27/18 20:53; Admin Dose 1 TAB; Start 06/14/18 at 09:30 Metformin HCl (Glucophage) 1,000 mg BID WITH MEALS PO Last administered on 06/27/18 17:08; Admin Dose 1,000 MG; Start 06/16/18 at 18:00 Ascorbic Acid (Vitamin C) 500 mg DAILY PO Last administered on 06/27/18 08:45; Admin Dose 500 MG; Start 06/17/18 at 09:00; Stop 08/16/18 at 08:59 Insulin Human NPH (Humulin N) 12 unit DAILY@20 SC Last administered on 06/27/18 21:11; Admin Dose 12 UNIT; Start 06/17/18 at 20:00 Guaifenesin/ Codeine Phosphate (Robitussin Ac Liquid Cup) 5 ml Q4H PRN PO cough Last administered on 06/18/18 20:25; Admin Dose 5 ML; Start 06/18/18 at 12:00 Linezolid (Zyvox) 600 mg BID PO Last administered on 06/27/18 20:53; Admin Dose 600 MG; Start 06/18/18 at 21:00 Rifampin (Rifampin) 600 mg DAILY PO Last administered on 06/27/18 08:45; Admin Dose 600 MG; Start 06/20/18 at 14:30 Zolpidem Tartrate (Ambien) 10 mg HS PO Last administered on 06/27/18 20:54; Admin Dose 10 MG; Start 06/22/18 at 21:00 Multi-Ingredient Ointment (Eucerin Cream) 1 applic BID TOP Last administered on 06/27/18 20:56; Admin Dose 1 APPLIC; Start 06/24/18 at 10:00 Glimepiride (Amaryl) 4 mg QHS PO Last administered on 06/27/18 20:54; Admin Dose 4 MG; Start 06/25/18 at 21:00 Glimepiride (Amaryl) 2 mg AC BREAKFAST PO Last administered on 06/27/18 06:07; Admin Dose 2 MG; Start 06/26/18 at 07:00 Meds reviewed: Yes Allergies Coded Allergies: No Known Allergy (Unverified , 06/20/18) Allergies Reviewed: Yes Labs/Studies Labs Reviewed: Reviewed by anesthesiologist Result Diagram: 06/28/18 0510 06/27/18 0523 Laboratory Tests 06/28/18 05:10 test: N/A Studies: ECG (n/a), CXR (n/a) Pre-procedure Exam Last vitals Vital Signs Date Temp Pulse Resp B/P (MAP) Pulse Ox O2 O2 Flow FiO2 Time Delivery Rate 06/28/18 98.0 97 18 100/60 97 04:37 (73) Airway: Adequate mouth opening, Adequate thyromental dist Mallampati: Mallampati II Teeth: Normal Lung: Normal Heart: Normal ASA Physical Status ASA physical status: 3 Emergency: None Planned Anesthetic General/MAC: MAC Planned Pain Management Parenteral pain med Pre-operative Attestations Prior to commencing anesthesia and surgery, the patient was re-evaluated, there was verification of: *The patient's identity *The results of appropriate recent lab work and preoperative vital signs *The above evaluation not changing prior to induction *Anesthetic plan, risk benefits, alternative and complications discussed with patient/family; questions answered; patient/family understands, accepts and wishes to proceed. MARCELINA WELSH MD Jun 28, 2018 07:08
[2018-06-28] MEDS ORDERED: MIDAZOLAM 1 MG/ML 2 ML INJ ONE (07:09)
[2018-06-28] MEDS ORDERED: PHENYLephrine (100 MCG/ML) 5ML SYG ONE (07:10)
[2018-06-28] MEDS ORDERED: PROPOFOL 40 ML ONE (07:10)
[2018-06-28] MEDS ORDERED: hydrALAzine 20 MG INJ IV PRN (07:30)
[2018-06-28] MEDS ORDERED: HYDROmorphONE 1 MG/5 ML IV SYRINGE IV PRN ×2 (07:30)
[2018-06-28] MEDS ORDERED: LABETALOL HCL 20MG INJ IV PRN (07:30)
[2018-06-28] MEDS ORDERED: METOCLOPRAMIDE 10 MG INJ IV PRN (07:30)
[2018-06-28] MEDS ORDERED: ONDANSETRON 4 MG INJ IV PRN (07:30)
[2018-06-28] MEDS ORDERED: FENTAnyl 50 MCG/ML VIAL IV PRN ×2 (07:30)
[2018-06-28] MEDS ORDERED: EPHEDrine SULFATE 50 MG/5 ML SYG IV PRN (07:30)
[2018-06-28] MEDS: INSULIN ASPART [NOVOLOG] 3 ML PEN SC SCH ×4 (08:00→20:13)
[2018-06-28] MEDS: metFORMIN 500 MG TAB PO SCH ×2 (08:29→16:58)
[2018-06-28] MEDS: FERROUS SULFATE (EC) 325 MG TAB PO SCH (08:29)
[2018-06-28] MEDS: ASCORBIC ACID 500 MG TAB PO SCH (08:30)
[2018-06-28] MEDS: GUAIFENESIN/DM (SR) TAB PO SCH ×2 (08:30→20:12)
[2018-06-28] MEDS: ZYVOX 600 MG TAB PO SCH ×2 (08:30→20:13)
[2018-06-28] MEDS: EUCERIN 113 GM CR TOP SCH ×2 (08:31→20:50)
[2018-06-28] MEDS: RIFAMPIN 300 MG CAP PO SCH (08:31)
[2018-06-28] MEDS: ONDANSETRON 4 MG INJ IV PRN (08:45)
--- NOTE | 2018-06-28 08:56 | CONS ---
Consult Date/Type/Reason Admit Date/Time Jun 08, 2018 at 23:53 Initial Consult Date 06/26/18 Type of Consultation: cv Requesting Provider: HAYDEE RAYO Date/Time of Note DATE: 06/28/18 TIME: 08:55 Subjective Cardiology follow-up progress Subjective: Discussed with the staff telemetry was reviewed patient remained sinus rhythm Discussed with multiple physicians. Patient is in isolation Objective: General: no acute distress HEENT: NC/AT. pupils are equal. round. NECK: NO JVD. no stridor. CV: RRR. systolic murmur; no gallop or rubs. PULM: no wheezing + rhonchi. GI: SOFT, NT, ND, no rebound or guarding Extremity: No significant B/L LE edema. no clubbing. neuro: awake and alert, OX3. Psych: calm and pleasant rectal: deferred Derm: Multiple tattoos Repeat echocardiogram on 06/26/2018 shows: Normal left ventricular systolic function. Normal left ventricular cavity size. Left ventricular wall thickness upper limits of normal. Ejection fraction is visually estimated at 60 %. Tissue Doppler/Mitral Doppler indices are consistent with impaired relaxation (Stage I diastolic dysfunction). Normal right ventricular size. Normal right ventricular systolic function. The left atrium is normal in size. The right atrium is normal in size. No significant valvular stenosis or regurgitation seen. Normal pericardium with no significant pericardial effusion. BITA 06/28/18 Normal LV size and systolic function with trace MR and TR Echo density/thickening of the tricuspid valve is noted. Vegetation cannot be ruled out Objective Vitals Vital Signs Date Temp Pulse Resp B/P (MAP) Pulse Ox O2 O2 Flow FiO2 Time Delivery Rate 06/28/18 97.6 76 18 104/68 97 Room Air 08:25 (80) Intake and Output 06/27/18 06/27/18 06/28/18 1515:00 23:00 07:00 IntakeIntake Total 700 ml 600 ml BalanceBalance 700 ml 600 ml Results/Medications Result Diagram: 06/28/18 0510 06/28/18 0510 Results 24 hrs Laboratory Tests Test 06/27/18 11:43 06/27/18 17:07 06/27/18 20:51 06/28/18 05:10 Bedside Glucose 92 141 109 White Blood Count 6.0 Red Blood Count 4.07 L Hemoglobin 11.5 L Hematocrit 36.4 L Mean Corpuscular 89.4 Volume Mean Corpuscular 28.3 L Hemoglobin Mean Corpuscular 31.6 L Hemoglobin Concent Red Cell Distribution 16.6 H Width Platelet Count 570 H Mean Platelet Volume 9.6 Immature Granulocytes 0.300 % Neutrophils % 47.2 Lymphocytes % 43.7 Monocytes % 5.8 Eosinophils % 2.3 Basophils % 0.7 Nucleated Red Blood 0.0 Cells % Immature Granulocytes 0.020 # Neutrophils # 2.8 Lymphocytes # 2.6 Monocytes # 0.4 Eosinophils # 0.1 Basophils # 0.0 Nucleated Red Blood 0.0 Cells # Sodium Level 139 Potassium Level 3.7 Chloride Level 102 Carbon Dioxide Level 29 Anion Gap 8 Blood Urea Nitrogen 10 Creatinine 0.37 L Est Glomerular Filtrat > 60 Rate mL/min Glucose Level 56 #L Calcium Level 9.1 Phosphorus Level 4.4 Magnesium Level 1.6 L Test 06/28/18 08:20 Bedside Glucose 90 Home Meds Unable to Obtain Active Prescriptions or Reported Meds Medications Current Medications Ondansetron HCl (Zofran Inj) 4 mg Q6H PRN IV NAUSEA AND/OR VOMITING Last administered on 06/28/18 08:45; Admin Dose 4 MG; Start 06/09/18 at 00:30 Ipratropium [place] (Atrovent 0.02% (Neb)) 0.5 mg Q2H RESP THERAPY PRN NEB SHORTNESS OF BREATH Last administered on 06/14/18at 21:38; Admin Dose 0.5 MG; Start 06/09/18 at 00:30 Acetaminophen (Tylenol Liquid) 650 mg Q6H PRN PO PAIN LEVEL 1-3 OR FEVER Last administered on 06/28/18 01:20; Admin Dose 650 MG; Start 06/09/18 at 00:30 Docusate Sodium (Colace) 100 mg Q12H PRN PO CONSTIPATION; Start 06/09/18 at 00:30 Bisacodyl (Dulcolax) 5 mg DAILY PRN PO CONSTIPATION; Start 06/09/18 at 00:30 Pantoprazole (Protonix Tab) 40 mg DAILY@06 PO Last administered on 06/27/18 05:19; Admin Dose 40 MG; Start 06/09/18 at 06:00 Diagnostic Test (Pha) (Accu-Chek) 1 ea 02 XX Last administered on 4/8/19at 01:56; Admin Dose 1 EA; Start 06/10/18 at 02:00 Insulin Aspart (Novolog Insulin Pen) NOVOLOG *MILD* ALGORITHM WITH MEALS BEDTIME SC Last administered on 06/27/18at 17:35; Admin Dose 1 UNIT; Start 06/09/18 at 18:00 Miscellaneous Information 1 ea NOTE XX ; Start 06/09/18 at 14:30 Glucose (Glutose) 15 gm Q15M PRN PO DECREASED GLUCOSE; Start 06/09/18 at 14:30 Glucose (Glutose) 22.5 gm Q15M PRN PO DECREASED GLUCOSE; Start 06/09/18 at 14:30 Dextrose (D50w Syringe) 25 ml Q15M PRN IV DECREASED GLUCOSE Last administered on 06/15/18at 20:53; Admin Dose 25 ML; Start 06/09/18 at 14:30 Dextrose (D50w Syringe) 50 ml Q15M PRN IV DECREASED GLUCOSE; Start 06/09/18 at 14:30 Glucagon (Glucagen) 1 mg Q15M PRN IM DECREASED GLUCOSE; Start 06/09/18 at 14:30 Glucose (Glutose) 15 gm Q15M PRN BUCCAL DECREASED GLUCOSE; Start 06/09/18 at 14:30 Ferrous Sulfate (Ferrous Sulfate (Ec)) 325 mg DAILY PO Last administered on 06/28/18 08:29; Admin Dose 325 MG; Start 06/13/18 at 10:30; Stop 08/12/18 at 10:29 Levalbuterol (Xopenex Neb) 1.25 mg Q6H RESP THERAPY PRN HHN sob/wheezing Last administered on 06/14/18at 21:38; Admin Dose 1.25 MG; Start 06/14/18 at 09:00 Guaifenesin/ Dextromethorphan (Mucinex Dm) 1 tab BID PO Last administered on 06/28/18 08:30; Admin Dose 1 TAB; Start 06/14/18 at 09:30 Metformin HCl (Glucophage) 1,000 mg BID WITH MEALS PO Last administered on 06/28/18 08:29; Admin Dose 1,000 MG; Start 06/16/18 at 18:00 Ascorbic Acid (Vitamin C) 500 mg DAILY PO Last administered on 06/28/18 08:30; Admin Dose 500 MG; Start 06/17/18 at 09:00; Stop 08/16/18 at 08:59 Insulin Human NPH (Humulin N) 12 unit DAILY@20 SC Last administered on 06/27/18 21:11; Admin Dose 12 UNIT; Start 06/17/18 at 20:00 Guaifenesin/ Codeine Phosphate (Robitussin Ac Liquid Cup) 5 ml Q4H PRN PO cough Last administered on 06/18/18 20:25; Admin Dose 5 ML; Start 06/18/18 at 12:00 Linezolid (Zyvox) 600 mg BID PO Last administered on 06/28/18 08:30; Admin Dose 600 MG; Start 06/18/18 at 21:00 Rifampin (Rifampin) 600 mg DAILY PO Last administered on 06/28/18 08:31; Admin Dose 600 MG; Start 06/20/18 at 14:30 Zolpidem Tartrate (Ambien) 10 mg HS PO Last administered on 06/27/18 20:54; Admin Dose 10 MG; Start 06/22/18 at 21:00 Multi-Ingredient Ointment (Eucerin Cream) 1 applic BID TOP Last administered on 06/28/18 08:31; Admin Dose 1 APPLIC; Start 06/24/18 at 10:00 Glimepiride (Amaryl) 4 mg QHS PO Last administered on 06/27/18 20:54; Admin Dose 4 MG; Start 06/25/18 at 21:00 Glimepiride (Amaryl) 2 mg AC BREAKFAST PO Last administered on 06/27/18 06:07; Admin Dose 2 MG; Start 06/26/18 at 07:00 Hydromorphone HCl (Dilaudid) 0.2 mg PACU PRN IV MILD PAIN 1-3; Start 06/28/18 at 07:30; Stop 06/28/18 at 15:00 Hydromorphone HCl (Dilaudid) 0.4 mg PACU PRN IV MOD PAIN 4-6; Start 06/28/18 at 07:30; Stop 06/28/18 at 15:00 Fentanyl (Sublimaze) 25 mcg PACU ORDER PRN IV MILD PAIN 1-3; Start 06/28/18 at 07:30; Stop 06/28/18 at 15:00 Fentanyl (Sublimaze) 50 mcg PACU ORDER PRN IV MOD PAIN 4-6; Start 06/28/18 at 07:30; Stop 06/28/18 at 15:00 Ondansetron HCl (Zofran Inj) 4 mg PACU ORDER PRN IV NAUSEA/VOMITING; Start 06/28/18 at 07:30; Stop 06/28/18 at 15:00 Metoclopramide HCl (Reglan) 10 mg PACU ORDER PRN IV NAUSEA/VOMITING; Start 06/28/18 at 07:30; Stop 06/28/18 at 15:00 Labetalol HCl (Labetalol) 5 mg PACU ORDER PRN IV HIGH BLOOD PRESSURE; Start 06/28/18 at 07:30; Stop 06/28/18 at 15:00 Hydralazine HCl (Apresoline) 5 mg PACU ORDER PRN IV HIGH BLOOD PRESSURE; Start 06/28/18 at 07:30; Stop 06/28/18 at 15:00 Ephedrine Sulfate 5 mg PACU ORDER PRN IV BLOOD PRESSURE SUPPORT; Start 06/28/18 at 07:30; Stop 06/28/18 at 15:00 Assessment/Plan Hospital Course (Demo Recall) 1. MRSA bacteremia, with a possible vegetation on tricuspid valve on the transesophageal echocardiogram 2. Pneumonia 3. Status post DKA 4. Diabetes 5. Anemia 6. Homelessness Recommendations: Diabetic management as per internal medicine and endocrine documentum consultant. Antibiotic management as per infectious disease recommendations. thank you for this referral. We will continue to follow along with you ABDI JAY MD [facility] ABDI JAY MD Jun 28, 2018 08:56
[2018-06-28] MEDS ORDERED: MAGNESIUM SULFATE 2 GM/50 ML 50 ML IVPB ONE (11:00)
--- NOTE | 2018-06-28 13:26 | CONS ---
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 Serology for HIV negative Antimicrobials: Zyvox Rifampin Diflucan Physical examination: Well-developed middle-aged woman who is alert in no distress. Head atraumatic normocephalic sclera nonicteric. Neck is supple chest rise symmetrical breath sounds diminished bases. Heart S1-S2. Abdomen soft bowel sounds present. Extremities without cyanosis. Assessment: 1. Resolving sepsis 2. MRSA bacteremia on admission 3. Necrotizing MRSA pneumonia with areas of cavitation per CT ?septic emboli 4. Homelessness 5. Poorly controlled diabetes 6. History of recent meth amphetamine abuse Plan: Pt needs PICC with 6-8 weeks IV Vancomycin, can't be sent to community with PICC 2 to substance abuse issues. CM to arrange placement. Will order PICC and change Zyvox to IV Vanco once line placed Consultation Date/Type/Reason Admit Date/Time Jun 08, 2018 at 23:53 Initial Consult Date Type of Consult id Requesting Provider: HAYDEE RAYO Date/Time of Note DATE: 06/28/18 TIME: 13:22 Exam/Review of Systems Exam Vitals Vital Signs Date Temp Pulse Resp B/P (MAP) Pulse Ox O2 O2 Flow FiO2 Time Delivery Rate 06/28/18 105 12:59 06/28/18 97.8 17 100/56 95 Room Air 12:08 (71) Intake and Output 06/27/18 06/27/18 06/28/18 1414:59 22:59 06:59 IntakeIntake Total 700 ml 600 ml BalanceBalance 700 ml 600 ml Results Result Diagram: 06/28/18 0510 06/28/18 0510 Results 24hrs Laboratory Tests Test 06/27/18 17:07 06/27/18 20:51 06/28/18 05:10 06/28/18 08:20 Bedside Glucose 141 109 90 White Blood Count 6.0 Red Blood Count 4.07 L Hemoglobin 11.5 L Hematocrit 36.4 L Mean Corpuscular 89.4 Volume Mean Corpuscular 28.3 L Hemoglobin Mean Corpuscular 31.6 L Hemoglobin Concent Red Cell Distribution 16.6 H Width Platelet Count 570 H Mean Platelet Volume 9.6 Immature Granulocytes 0.300 % Neutrophils % 47.2 Lymphocytes % 43.7 Monocytes % 5.8 Eosinophils % 2.3 Basophils % 0.7 Nucleated Red Blood 0.0 Cells % Immature Granulocytes 0.020 # Neutrophils # 2.8 Lymphocytes # 2.6 Monocytes # 0.4 Eosinophils # 0.1 Basophils # 0.0 Nucleated Red Blood 0.0 Cells # Sodium Level 139 Potassium Level 3.7 Chloride Level 102 Carbon Dioxide Level 29 Anion Gap 8 Blood Urea Nitrogen 10 Creatinine 0.37 L Est Glomerular > 60 Filtrat Rate mL/min Glucose Level 56 #L Calcium Level 9.1 Phosphorus Level 4.4 Magnesium Level 1.6 L Test 06/28/18 11:35 Bedside Glucose 217 Medications Medication Current Medications Ondansetron HCl (Zofran Inj) 4 mg Q6H PRN IV NAUSEA AND/OR VOMITING Last administered on 06/28/18 08:45; Admin Dose 4 MG; Start 06/09/18 at 00:30 Ipratropium [place] (Atrovent 0.02% (Neb)) 0.5 mg Q2H RESP THERAPY PRN NEB SHORTNESS OF BREATH Last administered on 06/14/18 21:38; Admin Dose 0.5 MG; Start 06/09/18 at 00:30 Acetaminophen (Tylenol Liquid) 650 mg Q6H PRN PO PAIN LEVEL 1-3 OR FEVER Last administered on 06/28/18 01:20; Admin Dose 650 MG; Start 06/09/18 at 00:30 Docusate Sodium (Colace) 100 mg Q12H PRN PO CONSTIPATION; Start 06/09/18 at 00:30 Bisacodyl (Dulcolax) 5 mg DAILY PRN PO CONSTIPATION; Start 06/09/18 at 00:30 Pantoprazole (Protonix Tab) 40 mg DAILY@06 PO Last administered on 06/27/18 05:19; Admin Dose 40 MG; Start 06/09/18 at 06:00 Diagnostic Test (Pha) (Accu-Chek) 1 ea 02 XX Last administered on 06/26/18 01:56; Admin Dose 1 EA; Start 06/10/18 at 02:00 Insulin Aspart (Novolog Insulin Pen) NOVOLOG *MILD* ALGORITHM WITH MEALS BEDTIME SC Last administered on 06/28/18 11:43; Admin Dose 2 UNIT; Start 06/09/18 at 18:00 Miscellaneous Information 1 ea NOTE XX ; Start 06/09/18 at 14:30 Glucose (Glutose) 15 gm Q15M PRN PO DECREASED GLUCOSE; Start 06/09/18 at 14:30 Glucose (Glutose) 22.5 gm Q15M PRN PO DECREASED GLUCOSE; Start 06/09/18 at 14:30 Dextrose (D50w Syringe) 25 ml Q15M PRN IV DECREASED GLUCOSE Last administered on 06/15/18at 20:53; Admin Dose 25 ML; Start 06/09/18 at 14:30 Dextrose (D50w Syringe) 50 ml Q15M PRN IV DECREASED GLUCOSE; Start 06/09/18 at 14:30 Glucagon (Glucagen) 1 mg Q15M PRN IM DECREASED GLUCOSE; Start 06/09/18 at 14:30 Glucose (Glutose) 15 gm Q15M PRN BUCCAL DECREASED GLUCOSE; Start 06/09/18 at 14:30 Ferrous Sulfate (Ferrous Sulfate (Ec)) 325 mg DAILY PO Last administered on 06/19 08:29; Admin Dose 325 MG; Start 06/13/18 at 10:30; Stop 08/12/18 at 10:29 Levalbuterol (Xopenex Neb) 1.25 mg Q6H RESP THERAPY PRN HHN sob/wheezing Last administered on 06/14/18at 21:38; Admin Dose 1.25 MG; Start 06/14/18 at 09:00 Guaifenesin/ Dextromethorphan (Mucinex Dm) 1 tab BID PO Last administered on 06/28/18 08:30; Admin Dose 1 TAB; Start 06/14/18 at 09:30 Metformin HCl (Glucophage) 1,000 mg BID WITH MEALS PO Last administered on 06/28/18 08:29; Admin Dose 1,000 MG; Start 06/16/18 at 18:00 Ascorbic Acid (Vitamin C) 500 mg DAILY PO Last administered on 06/28/18 08:30; Admin Dose 500 MG; Start 06/17/18 at 09:00; Stop 08/16/18 at 08:59 Insulin Human NPH (Humulin N) 12 unit DAILY@20 SC Last administered on 06/27/18 21:11; Admin Dose 12 UNIT; Start 06/17/18 at 20:00 Guaifenesin/ Codeine Phosphate (Robitussin Ac Liquid Cup) 5 ml Q4H PRN PO cough Last administered on 06/18/18 20:25; Admin Dose 5 ML; Start 06/18/18 at 12:00 Linezolid (Zyvox) 600 mg BID PO Last administered on 06/28/18 08:30; Admin Dose 600 MG; Start 06/18/18 at 21:00 Rifampin (Rifampin) 600 mg DAILY PO Last administered on 06/28/18 08:31; Admin Dose 600 MG; Start 06/20/18 at 14:30 Zolpidem Tartrate (Ambien) 10 mg HS PO Last administered on 06/27/18 20:54; Admin Dose 10 MG; Start 06/22/18 at 21:00 Multi-Ingredient Ointment (Eucerin Cream) 1 applic BID TOP Last administered on 06/28/18 08:31; Admin Dose 1 APPLIC; Start 06/24/18 at 10:00 Glimepiride (Amaryl) 4 mg QHS PO Last administered on 06/27/18 20:54; Admin Dose 4 MG; Start 06/25/18 at 21:00 Glimepiride (Amaryl) 2 mg AC BREAKFAST PO Last administered on 06/27/18 06:07; Admin Dose 2 MG; Start 06/26/18 at 07:00 Hydromorphone HCl (Dilaudid) 0.2 mg PACU PRN IV MILD PAIN 1-3; Start 06/28/18 at 07:30; Stop 06/28/18 at 15:00 Hydromorphone HCl (Dilaudid) 0.4 mg PACU PRN IV MOD PAIN 4-6; Start 06/28/18 at 07:30; Stop 06/28/18 at 15:00 Fentanyl (Sublimaze) 25 mcg PACU ORDER PRN IV MILD PAIN 1-3; Start 06/28/18 at 07:30; Stop 06/28/18 at 15:00 Fentanyl (Sublimaze) 50 mcg PACU ORDER PRN IV MOD PAIN 4-6; Start 06/28/18 at 07:30; Stop 06/28/18 at 15:00 Ondansetron HCl (Zofran Inj) 4 mg PACU ORDER PRN IV NAUSEA/VOMITING; Start 06/28/18 at 07:30; Stop 06/28/18 at 15:00 Metoclopramide HCl (Reglan) 10 mg PACU ORDER PRN IV NAUSEA/VOMITING; Start 06/28/18 at 07:30; Stop 06/28/18 at 15:00 Labetalol HCl (Labetalol) 5 mg PACU ORDER PRN IV HIGH BLOOD PRESSURE; Start 06/28/18 at 07:30; Stop 06/28/18 at 15:00 Hydralazine HCl (Apresoline) 5 mg PACU ORDER PRN IV HIGH BLOOD PRESSURE; Start 06/28/18 at 07:30; Stop 06/28/18 at 15:00 Ephedrine Sulfate 5 mg PACU ORDER PRN IV BLOOD PRESSURE SUPPORT; Start 06/28/18 at 07:30; Stop 06/28/18 at 15:00 JOSE GOVEA NP Jun 28, 2018 13:26
[2018-06-28] MEDS ORDERED: LIDOCAINE 1% (MPF) 5 ML VIAL SC ONE (13:30)
--- NOTE | 2018-06-28 13:59 | PN ---
Date/Time of Note Date/Time of Note DATE: 06/28/18 TIME: 13:57 Objective Vitals Vital Signs Date Temp Pulse Resp B/P (MAP) Pulse Ox O2 O2 Flow FiO2 Time Delivery Rate 06/28/18 105 12:59 06/28/18 97.8 17 100/56 95 Room Air 12:08 (71) Intake and Output 06/27/18 06/27/18 06/28/18 1515:00 23:00 07:00 IntakeIntake Total 700 ml 600 ml BalanceBalance 700 ml 600 ml Results Result Diagram: 06/28/1850906/28/18509 Medications Medications Current Medications Ondansetron HCl (Zofran Inj) 4 mg Q6H PRN IV NAUSEA AND/OR VOMITING Last administered on 06/28/18 08:45; Admin Dose 4 MG; Start 06/09/18 at 00:30 Ipratropium Monitor (Atrovent 0.02% (Neb)) 0.5 mg Q2H RESP THERAPY PRN NEB SHORTNESS OF BREATH Last administered on 06/14/18at 21:38; Admin Dose 0.5 MG; Start 06/09/18 at 00:30 Acetaminophen (Tylenol Liquid) 650 mg Q6H PRN PO PAIN LEVEL 1-3 OR FEVER Last administered on 06/28/18 01:20; Admin Dose 650 MG; Start 06/09/18 at 00:30 Docusate Sodium (Colace) 100 mg Q12H PRN PO CONSTIPATION; Start 06/09/18 at 00:30 Bisacodyl (Dulcolax) 5 mg DAILY PRN PO CONSTIPATION; Start 06/09/18 at 00:30 Pantoprazole (Protonix Tab) 40 mg DAILY@06 PO Last administered on 06/27/18 05:19; Admin Dose 40 MG; Start 06/09/18 at 06:00 Diagnostic Test (Pha) (Accu-Chek) 1 ea 02 XX Last administered on 06/26/18 01:56; Admin Dose 1 EA; Start 06/10/18 at 02:00 Insulin Aspart (Novolog Insulin Pen) NOVOLOG *MILD* ALGORITHM WITH MEALS BEDTIME SC Last administered on 06/28/18 11:43; Admin Dose 2 UNIT; Start 06/09/18 at 18:00 Miscellaneous Information 1 ea NOTE XX ; Start 06/09/18 at 14:30 Glucose (Glutose) 15 gm Q15M PRN PO DECREASED GLUCOSE; Start 06/09/18 at 14:30 Glucose (Glutose) 22.5 gm Q15M PRN PO DECREASED GLUCOSE; Start 06/09/18 at 14:30 Dextrose (D50w Syringe) 25 ml Q15M PRN IV DECREASED GLUCOSE Last administered on 06/15/18at 20:53; Admin Dose 25 ML; Start 06/09/18 at 14:30 Dextrose (D50w Syringe) 50 ml Q15M PRN IV DECREASED GLUCOSE; Start 06/09/18 at 14:30 Glucagon (Glucagen) 1 mg Q15M PRN IM DECREASED GLUCOSE; Start 06/09/18 at 14:30 Glucose (Glutose) 15 gm Q15M PRN BUCCAL DECREASED GLUCOSE; Start 06/09/18 at 14:30 Ferrous Sulfate (Ferrous Sulfate (Ec)) 325 mg DAILY PO Last administered on 06/28/18 08:29; Admin Dose 325 MG; Start 06/13/18 at 10:30; Stop 08/12/18 at 10:29 Levalbuterol (Xopenex Neb) 1.25 mg Q6H RESP THERAPY PRN HHN sob/wheezing Last administered on 06/14/18at 21:38; Admin Dose 1.25 MG; Start 06/14/18 at 09:00 Guaifenesin/ Dextromethorphan (Mucinex Dm) 1 tab BID PO Last administered on 06/28/18 08:30; Admin Dose 1 TAB; Start 06/14/18 at 09:30 Metformin HCl (Glucophage) 1,000 mg BID WITH MEALS PO Last administered on 06/28/18 08:29; Admin Dose 1,000 MG; Start 06/16/18 at 18:00 Ascorbic Acid (Vitamin C) 500 mg DAILY PO Last administered on 06/28/18 08:30; Admin Dose 500 MG; Start 06/17/18 at 09:00; Stop 08/16/18 at 08:59 Insulin Human NPH (Humulin N) 12 unit DAILY@20 SC Last administered on 06/27/18at 21:11; Admin Dose 12 UNIT; Start 06/17/18 at 20:00 Guaifenesin/ Codeine Phosphate (Robitussin Ac Liquid Cup) 5 ml Q4H PRN PO cough Last administered on 06/18/18 20:25; Admin Dose 5 ML; Start 06/18/18 at 12:00 Linezolid (Zyvox) 600 mg BID PO Last administered on 06/28/18 08:30; Admin Dose 600 MG; Start 06/18/18 at 21:00 Rifampin (Rifampin) 600 mg DAILY PO Last administered on 06/28/18 08:31; Admin Dose 600 MG; Start 06/20/18 at 14:30 Zolpidem Tartrate (Ambien) 10 mg HS PO Last administered on 06/27/18 20:54; Admin Dose 10 MG; Start 06/22/18 at 21:00 Multi-Ingredient Ointment (Eucerin Cream) 1 applic BID TOP Last administered on 06/28/18 08:31; Admin Dose 1 APPLIC; Start 06/24/18 at 10:00 Glimepiride (Amaryl) 4 mg QHS PO Last administered on 06/27/18 20:54; Admin Dose 4 MG; Start 06/25/18 at 21:00 Glimepiride (Amaryl) 2 mg AC BREAKFAST PO Last administered on 06/27/18 06:07; Admin Dose 2 MG; Start 06/26/18 at 07:00 Hydromorphone HCl (Dilaudid) 0.2 mg PACU PRN IV MILD PAIN 1-3; Start 06/28/18 at 07:30; Stop 06/28/18 at 15:00 Hydromorphone HCl (Dilaudid) 0.4 mg PACU PRN IV MOD PAIN 4-6; Start 06/28/18 at 07:30; Stop 06/28/18 at 15:00 Fentanyl (Sublimaze) 25 mcg PACU ORDER PRN IV MILD PAIN 1-3; Start 06/28/18 at 07:30; Stop 06/28/18 at 15:00 Fentanyl (Sublimaze) 50 mcg PACU ORDER PRN IV MOD PAIN 4-6; Start 06/28/18 at 07:30; Stop 06/28/18 at 15:00 Ondansetron HCl (Zofran Inj) 4 mg PACU ORDER PRN IV NAUSEA/VOMITING; Start 06/28/18 at 07:30; Stop 06/28/18 at 15:00 Metoclopramide HCl (Reglan) 10 mg PACU ORDER PRN IV NAUSEA/VOMITING; Start 06/28/18 at 07:30; Stop 06/28/18 at 15:00 Labetalol HCl (Labetalol) 5 mg PACU ORDER PRN IV HIGH BLOOD PRESSURE; Start 06/28/18 at 07:30; Stop 06/28/18 at 15:00 Hydralazine HCl (Apresoline) 5 mg PACU ORDER PRN IV HIGH BLOOD PRESSURE; Start 06/28/18 at 07:30; Stop 06/28/18 at 15:00 Ephedrine Sulfate 5 mg PACU ORDER PRN IV BLOOD PRESSURE SUPPORT; Start 06/28/18 at 07:30; Stop 06/28/18 at 15:00 VTE Prophylaxis Risk score (from Ns)>0 risk: 3 SCD applied (from Ns): No SCD contraindication: other Lines/Catheters IV Catheter Type: Garcia in Place: No Assessment/Plan Hospital Course Subjective doing okay, no acute complaints Objective Physical exam General: Patient is laying in bed and answers questions appropriately Mentation: Patient is alert and oriented 4, Head: Normocephalic atraumatic Eyes: EOMI, pupils reactive to light Neck: Supple, nontender, midline Respiratory: Coarse to auscultation bilaterally Cardiovascular: regular rate, no obvious murmurs Gastrointestinal: non-tender to palpation, bowel sounds heard. Neurological: Moves all extremities spontaneously Skin: No new skin lesions Assessment/Plan Possible Endocarditis -found on BITA -IV abx 6 weeks per ID, however this may impose an issue as patient has a history of drug use, patient denies IV drug use however will need to move forward cautiously 1. MRSA bacteremia - Repeat blood culture negative. Remains afebrile with nl WBC. - ID on board and appreciate recommendations. Continue on current antibiotics 2. Tachycardia - most likely secondary to pulmonary process 3. Poorly controlled diabetes - A1c noted - continues to fluctuate based on diet compliance - Admits to eating outside food since current diet is very bland. Discussed need to follow low sugar, low carb diet - Endocrinology on board and appreciate recommendations. Continue on current insulin and glimepiride. 4. Extensive bilateral multilobar pneumonia - Patient found with MRSA in sputum and CT scan showing cavitating lesions but improvement in bilateral infiltrate - Pulm on board and continue current treatment. Cocci studies. After review of recent CT scan concern for septic emboli. - Repeat CT scan performed this am showing "Multifocal bilateral areas of pneu monia are again present and have diminished in overall size however there is interval development of multiple foci of lucencies within the areas of consolidation suggestive for bronchiectasis or developing small cavitary lesions." - ID recommendations appreciated 5. Homelessness - SW on board - patient states she plans to go to rehab following discharge 6. History of meth abuse - Patient states last use was 2 weeks prior to admission. Counseled on cessation. 7. Tobacco use - Cessation advised. 8. Iron Deficient anemia. - Continue oral iron. - H&H stable. 9. Mild asthma. - Currently stable - nebs PRN 10. Disposition -We will need infectious disease and pulmonology to finish workup, ultimately patient will need placement for 6 weeks of IV antibiotics. HAYDEE RAYO Jun 28, 2018 13:59
--- NOTE | 2018-06-28 14:15 | CONS ---
Consult Date/Type/Reason Admit Date/Time Jun 08, 2018 at 23:53 Initial Consult Date Type of Consult Pulmonary Requesting Provider: HAYDEE RAYO Date/Time of Note DATE: 06/28/18 TIME: 14:14 Subjective Patient comfortable this morning no respiratory distress. Objective Vital Signs Date Temp Pulse Resp B/P (MAP) Pulse Ox O2 O2 Flow FiO2 Time Delivery Rate 06/28/18 105 12:59 06/28/18 97.8 17 100/56 95 Room Air 12:08 (71) Intake and Output 06/27/18 06/27/18 06/28/18 1515:00 23:00 07:00 IntakeIntake Total 700 ml 600 ml BalanceBalance 700 ml 600 ml Exam GENERAL: VITAL SIGNS: per chart NECK: Supple. No JVD or lymphadenopathy. CARDIAC EXAM: S1, S2. No added sounds or murmurs. CHEST: clear bilaterally, No added sounds, rales or wheezes ABDOMEN: Soft, nontender. No guarding or rebound. EXTREMITIES: No cyanosis, clubbing or edema. NEUROLOGIC: Generalized weakness. No focal deficits. Vent Setting Fraction of Inspired Oxygen pe: 21 Results/Medications Result Diagram: 06/28/18 0510 06/28/18 0510 Results 24 hrs Laboratory Tests Test 06/27/18 17:07 06/27/18 20:51 06/28/18 05:10 06/28/18 08:20 Bedside Glucose 141 109 90 White Blood Count 6.0 Red Blood Count 4.07 L Hemoglobin 11.5 L Hematocrit 36.4 L Mean Corpuscular 89.4 Volume Mean Corpuscular 28.3 L Hemoglobin Mean Corpuscular 31.6 L Hemoglobin Concent Red Cell Distribution 16.6 H Width Platelet Count 570 H Mean Platelet Volume 9.6 Immature Granulocytes 0.300 % Neutrophils % 47.2 Lymphocytes % 43.7 Monocytes % 5.8 Eosinophils % 2.3 Basophils % 0.7 Nucleated Red Blood 0.0 Cells % Immature Granulocytes 0.020 # Neutrophils # 2.8 Lymphocytes # 2.6 Monocytes # 0.4 Eosinophils # 0.1 Basophils # 0.0 Nucleated Red Blood 0.0 Cells # Sodium Level 139 Potassium Level 3.7 Chloride Level 102 Carbon Dioxide Level 29 Anion Gap 8 Blood Urea Nitrogen 10 Creatinine 0.37 L Est Glomerular > 60 Filtrat Rate mL/min Glucose Level 56 #L Calcium Level 9.1 Phosphorus Level 4.4 Magnesium Level 1.6 L Test 06/28/18 11:35 Bedside Glucose 217 Medications Current Medications Ondansetron HCl (Zofran Inj) 4 mg Q6H PRN IV NAUSEA AND/OR VOMITING Last administered on 06/28/18 08:45; Admin Dose 4 MG; Start 06/09/18 at 00:30 Ipratropium [place] (Atrovent 0.02% (Neb)) 0.5 mg Q2H RESP THERAPY PRN NEB SHORTNESS OF BREATH Last administered on 06/14/18 21:38; Admin Dose 0.5 MG; Start 06/09/18 at 00:30 Acetaminophen (Tylenol Liquid) 650 mg Q6H PRN PO PAIN LEVEL 1-3 OR FEVER Last administered on 06/28/18 01:20; Admin Dose 650 MG; Start 06/09/18 at 00:30 Docusate Sodium (Colace) 100 mg Q12H PRN PO CONSTIPATION; Start 06/09/18 at 00:30 Bisacodyl (Dulcolax) 5 mg DAILY PRN PO CONSTIPATION; Start 06/09/18 at 00:30 Pantoprazole (Protonix Tab) 40 mg DAILY@06 PO Last administered on 06/27/18 05:19; Admin Dose 40 MG; Start 06/09/18 at 06:00 Diagnostic Test (Pha) (Accu-Chek) 1 ea 02 XX Last administered on 06/26/18 01:56; Admin Dose 1 EA; Start 06/10/18 at 02:00 Insulin Aspart (Novolog Insulin Pen) NOVOLOG *MILD* ALGORITHM WITH MEALS BEDTIME SC Last administered on 06/28/18 11:43; Admin Dose 2 UNIT; Start 06/09/18 at 18:00 Miscellaneous Information 1 ea NOTE XX ; Start 06/09/18 at 14:30 Glucose (Glutose) 15 gm Q15M PRN PO DECREASED GLUCOSE; Start 06/09/18 at 14:30 Glucose (Glutose) 22.5 gm Q15M PRN PO DECREASED GLUCOSE; Start 06/09/18 at 14:30 Dextrose (D50w Syringe) 25 ml Q15M PRN IV DECREASED GLUCOSE Last administered on 06/15/18 20:53; Admin Dose 25 ML; Start 06/09/18 at 14:30 Dextrose (D50w Syringe) 50 ml Q15M PRN IV DECREASED GLUCOSE; Start 06/09/18 at 14:30 Glucagon (Glucagen) 1 mg Q15M PRN IM DECREASED GLUCOSE; Start 06/09/18 at 14:30 Glucose (Glutose) 15 gm Q15M PRN BUCCAL DECREASED GLUCOSE; Start 06/09/18 at 14:30 Ferrous Sulfate (Ferrous Sulfate (Ec)) 325 mg DAILY PO Last administered on 06/28/18 08:29; Admin Dose 325 MG; Start 06/13/18 at 10:30; Stop 08/12/18 at 10:29 Levalbuterol (Xopenex Neb) 1.25 mg Q6H RESP THERAPY PRN HHN sob/wheezing Last administered on 06/14/18 21:38; Admin Dose 1.25 MG; Start 06/14/18 at 09:00 Guaifenesin/ Dextromethorphan (Mucinex Dm) 1 tab BID PO Last administered on 06/28/18 08:30; Admin Dose 1 TAB; Start 06/14/18 at 09:30 Metformin HCl (Glucophage) 1,000 mg BID WITH MEALS PO Last administered on 06/28/18 08:29; Admin Dose 1,000 MG; Start 06/16/18 at 18:00 Ascorbic Acid (Vitamin C) 500 mg DAILY PO Last administered on 06/28/18 08:30; Admin Dose 500 MG; Start 06/17/18 at 09:00; Stop 08/16/18 at 08:59 Insulin Human NPH (Humulin N) 12 unit DAILY@20 SC Last administered on 06/27/18 21:11; Admin Dose 12 UNIT; Start 06/17/18 at 20:00 Guaifenesin/ Codeine Phosphate (Robitussin Ac Liquid Cup) 5 ml Q4H PRN PO cough Last administered on 06/18/18 20:25; Admin Dose 5 ML; Start 06/18/18 at 12:00 Linezolid (Zyvox) 600 mg BID PO Last administered on 06/28/18 08:30; Admin Dose 600 MG; Start 06/18/18 at 21:00 Rifampin (Rifampin) 600 mg DAILY PO Last administered on 06/28/18 08:31; Admin Dose 600 MG; Start 06/20/18 at 14:30 Zolpidem Tartrate (Ambien) 10 mg HS PO Last administered on 06/27/18at 20:54; Admin Dose 10 MG; Start 06/22/18 at 21:00 Multi-Ingredient Ointment (Eucerin Cream) 1 applic BID TOP Last administered on 06/28/18at 08:31; Admin Dose 1 APPLIC; Start 06/24/18 at 10:00 Glimepiride (Amaryl) 4 mg QHS PO Last administered on 06/27/18at 20:54; Admin Dose 4 MG; Start 06/25/18 at 21:00 Glimepiride (Amaryl) 2 mg AC BREAKFAST PO Last administered on 06/27/18at 06:07; Admin Dose 2 MG; Start 06/26/18 at 07:00 Hydromorphone HCl (Dilaudid) 0.2 mg PACU PRN IV MILD PAIN 1-3; Start 06/28/18 at 07:30; Stop 06/28/18 at 15:00 Hydromorphone HCl (Dilaudid) 0.4 mg PACU PRN IV MOD PAIN 4-6; Start 06/28/18 at 07:30; Stop 06/28/18 at 15:00 Fentanyl (Sublimaze) 25 mcg PACU ORDER PRN IV MILD PAIN 1-3; Start 06/28/18 at 07:30; Stop 06/28/18 at 15:00 Fentanyl (Sublimaze) 50 mcg PACU ORDER PRN IV MOD PAIN 4-6; Start 06/28/18 at 07:30; Stop 06/28/18 at 15:00 Ondansetron HCl (Zofran Inj) 4 mg PACU ORDER PRN IV NAUSEA/VOMITING; Start 06/28/18 at 07:30; Stop 06/28/18 at 15:00 Metoclopramide HCl (Reglan) 10 mg PACU ORDER PRN IV NAUSEA/VOMITING; Start 06/28/18 at 07:30; Stop 06/28/18 at 15:00 Labetalol HCl (Labetalol) 5 mg PACU ORDER PRN IV HIGH BLOOD PRESSURE; Start 06/28/18 at 07:30; Stop 06/28/18 at 15:00 Hydralazine HCl (Apresoline) 5 mg PACU ORDER PRN IV HIGH BLOOD PRESSURE; Start 06/28/18 at 07:30; Stop 06/28/18 at 15:00 Ephedrine Sulfate 5 mg PACU ORDER PRN IV BLOOD PRESSURE SUPPORT; Start 06/28/18 at 07:30; Stop 06/28/18 at 15:00 Assessment/Plan Hospital Course (Demo Recall) IMP: 1. Multifocal airspace opacities--> now evolution of cavitary nodules--findings concerning for septic pulmonary emboli. 2. BITA today. RECS: 1. Abx per ID, chest x-ray shows improvement left upper lobe. 2. Await QuantiFERON gold. Discharge planning. ALICIA HAZEL MD, [facility] Jun 28, 2018 14:15
[2018-06-28] MEDS ORDERED: VANCOMYCIN IV PER PHARMACY XX SCH (16:00)
--- NOTE | 2018-06-28 16:25 | CARRPT ---
DATE OF PROCEDURE: 06/28/2018 PROCEDURE: Transesophageal echocardiogram. [employer] WORKER: Abdi Love MD INDICATION: MRSA bacteremia, rule out endocarditis. PROCEDURE IN DETAILS: Written informed consent was obtained after risks, benefits and alternatives o f the procedure were discussed with the patient in detail. The patient was brought into the recovery room/prep and hold. The patient underwent anesthesia by anesthesiologist. Transesophageal probe wa s advanced through oropharynx into the mid esophagus and stomach. Multiple views were obtained and i t was removed. FINDINGS: 1. Normal LV size and systolic function. Ejection fraction is estimated about 60%. 2. Normal size aortic root. 3. Left atrial size appeared to be normal. 4. Right atrial size appeared to be normal. 5. Mitral valve appeared to be normal with trace mitral insufficiency only. 6. Aortic valve appeared to be tricuspid and normal with no significant stenosis or regurgitation. 7. Tricuspid valve appears to be thickened. There is an area of lucency/thickening on the mitral va lve , but it is not mobile. Vegetation cannot be completely ruled out. 8. Pericardium with no evidence of effusion. CONCLUSION: 1. Normal left ventricular size and systolic function, ejection fraction of 60%. 2. Trace mitral regurgitation and tricuspid regurgitation. 3. Vegetation in the tricuspid valve cannot be ruled out. Dictated By: ABDI LOVE MD AV/JOE Conf#: [id number] DID#: [id number] CC: HAYDEE RAYO MD; AZRA CAVANAUGH MD; JOSE GOVEA NP; PEPE GASTON MD;*End*
[2018-06-28] MEDS: VANCOMYCIN 1 GM 250 ML IVPB SCH (16:57)
[2018-06-28] MEDS: ZOLPIDEM 5 MG TAB PO SCH (20:12)
[2018-06-28] MEDS: GLIMEPIRIDE 4 MG TAB PO SCH (20:12)
[2018-06-28] MEDS: NPH, HUMAN INSULIN ISOPHANE 3ML VIAL SC SCH (20:49)
[2018-06-29] VITALS (13 sets, daily range): BP systolic 91–119; BP diastolic 61–85; PULSE 88–122; RESP 18–20
[2018-06-29] MEDS: VANCOMYCIN 1 GM 250 ML IVPB SCH ×3 (01:08→17:30)
[2018-06-29] MEDS: ACCU-CHEK XX SCH (01:22)
[2018-06-29] MEDS: PANTOPRAZOLE (EC) 40 MG TAB PO SCH (05:58)
[2018-06-29] MEDS: ACETAMINOPHEN 650MG/20.3ML CUP PO PRN (05:58)
[2018-06-29] MEDS: GLIMEPIRIDE 2 MG TAB PO SCH (07:35)
[2018-06-29] MEDS: metFORMIN 500 MG TAB PO SCH ×2 (07:36→17:00)
[2018-06-29] MEDS: INSULIN ASPART [NOVOLOG] 3 ML PEN SC SCH ×4 (07:36→21:51)
--- NOTE | 2018-06-29 07:53 | CONS ---
Consult Date/Type/Reason Admit Date/Time Jun 08, 2018 at 23:53 Initial Consult Date 06/26/18 Type of Consultation: cv Requesting Provider: HAYDEE RAYO Date/Time of Note DATE: 06/29/18 TIME: 07:52 Subjective Cardiology follow-up progress Subjective: Discussed with the staff telemetry was reviewed patient remained sinus rhythm Patient is in isolation no report of chest pain Objective: General: no acute distress HEENT: NC/AT. pupils are equal. round. NECK: NO JVD. no stridor. CV: RRR. systolic murmur; no gallop or rubs. PULM: no wheezing + rhonchi. GI: SOFT, NT, ND, no rebound or guarding Extremity: No significant B/L LE edema. no clubbing. neuro: Sleeping comfortably Psych: calm and pleasant rectal: deferred Derm: Multiple tattoos Repeat echocardiogram on 06/26/2018 shows: Normal left ventricular systolic function. Normal left ventricular cavity size. Left ventricular wall thickness upper limits of normal. Ejection fraction is visually estimated at 60 %. Tissue Doppler/Mitral Doppler indices are consistent with impaired relaxation (Stage I diastolic dysfunction). Normal right ventricular size. Normal right ventricular systolic function. The left atrium is normal in size. The right atrium is normal in size. No significant valvular stenosis or regurgitation seen. Normal pericardium with no significant pericardial effusion. BITA 06/28/18 Normal LV size and systolic function with trace MR and TR Echo density/thickening of the tricuspid valve is noted. Vegetation cannot be ruled out Objective Vitals Vital Signs Date Temp Pulse Resp B/P (MAP) Pulse Ox O2 O2 Flow FiO2 Time Delivery Rate 06/29/18 97.9 92 20 99/64 (76) 97 Room Air 07:25 Intake and Output 06/28/18 06/28/18 06/29/18 1515:00 23:00 07:00 IntakeIntake Total 50 ml 1650 ml 750 ml BalanceBalance 50 ml 1650 ml 750 ml Results/Medications Result Diagram: 06/29/18 0556 06/29/18 0556 Results 24 hrs Laboratory Tests Test 06/28/18 08:20 06/28/18 11:35 06/28/18 16:56 06/28/18 20:11 Bedside Glucose 90 217 125 139 Test 06/29/18 05:56 06/29/18 07:35 White Blood Count 5.8 Red Blood Count 4.17 L Hemoglobin 11.7 L Hematocrit 37.6 Mean Corpuscular 90.2 Volume Mean Corpuscular 28.1 L Hemoglobin Mean Corpuscular 31.1 L Hemoglobin Concent Red Cell 17.1 H Distribution Width Platelet Count 521 H Mean Platelet Volume 9.7 Immature 0.300 Granulocytes % Neutrophils % 44.3 Lymphocytes % 44.9 Monocytes % 6.2 Eosinophils % 3.4 Basophils % 0.9 Nucleated Red Blood 0.0 Cells % Immature 0.020 Granulocytes # Neutrophils # 2.6 Lymphocytes # 2.6 Monocytes # 0.4 Eosinophils # 0.2 Basophils # 0.1 Nucleated Red Blood 0.0 Cells # Sodium Level 140 Potassium Level 4.6 Chloride Level 102 Carbon Dioxide Level 30 Anion Gap 8 Blood Urea Nitrogen 9 Creatinine 0.40 L Est Glomerular > 60 Filtrat Rate mL/min Glucose Level 72 Calcium Level 8.8 Phosphorus Level 3.2 Magnesium Level 1.9 Bedside Glucose 74 Home Meds Unable to Obtain Active Prescriptions or Reported Meds Medications Current Medications Ondansetron HCl (Zofran Inj) 4 mg Q6H PRN IV NAUSEA AND/OR VOMITING Last administered on 06/28/18 08:45; Admin Dose 4 MG; Start 06/09/18 at 00:30 Ipratropium [place] (Atrovent 0.02% (Neb)) 0.5 mg Q2H RESP THERAPY PRN NEB SHORTNESS OF BREATH Last administered on 06/14/18 21:38; Admin Dose 0.5 MG; Start 06/09/18 at 00:30 Acetaminophen (Tylenol Liquid) 650 mg Q6H PRN PO PAIN LEVEL 1-3 OR FEVER Last administered on 06/29/18 05:58; Admin Dose 650 MG; Start 06/09/18 at 00:30 Docusate Sodium (Colace) 100 mg Q12H PRN PO CONSTIPATION Last administered on 06/29/18 05:59; Admin Dose 100 MG; Start 06/09/18 at 00:30 Bisacodyl (Dulcolax) 5 mg DAILY PRN PO CONSTIPATION Last administered on 06/29/18 05:58; Admin Dose 5 MG; Start 06/09/18 at 00:30 Pantoprazole (Protonix Tab) 40 mg DAILY@06 PO Last administered on 4/11/19at 05:58; Admin Dose 40 MG; Start 06/09/18 at 06:00 Diagnostic Test (Pha) (Accu-Chek) 1 ea 02 XX Last administered on 06/26/18at 01:56; Admin Dose 1 EA; Start 06/10/18 at 02:00 Insulin Aspart (Novolog Insulin Pen) NOVOLOG *MILD* ALGORITHM WITH MEALS BEDTIME SC Last administered on 06/28/18 11:43; Admin Dose 2 UNIT; Start 06/09/18 at 18:00 Miscellaneous Information 1 ea NOTE XX ; Start 06/09/18 at 14:30 Glucose (Glutose) 15 gm Q15M PRN PO DECREASED GLUCOSE; Start 06/09/18 at 14:30 Glucose (Glutose) 22.5 gm Q15M PRN PO DECREASED GLUCOSE; Start 06/09/18 at 14:30 Dextrose (D50w Syringe) 25 ml Q15M PRN IV DECREASED GLUCOSE Last administered on 06/15/18at 20:53; Admin Dose 25 ML; Start 06/09/18 at 14:30 Dextrose (D50w Syringe) 50 ml Q15M PRN IV DECREASED GLUCOSE; Start 06/09/18 at 14:30 Glucagon (Glucagen) 1 mg Q15M PRN IM DECREASED GLUCOSE; Start 06/09/18 at 14:30 Glucose (Glutose) 15 gm Q15M PRN BUCCAL DECREASED GLUCOSE; Start 06/09/18 at 14 :30 Ferrous Sulfate (Ferrous Sulfate (Ec)) 325 mg DAILY PO Last administered on 06/28/18 08:29; Admin Dose 325 MG; Start 06/13/18 at 10:30; Stop 08/12/18 at 10:29 Levalbuterol (Xopenex Neb) 1.25 mg Q6H RESP THERAPY PRN HHN sob/wheezing Last administered on 06/14/18at 21:38; Admin Dose 1.25 MG; Start 06/14/18 at 09:00 Guaifenesin/ Dextromethorphan (Mucinex Dm) 1 tab BID PO Last administered on at 20:12; Admin Dose 1 TAB; Start 06/14/18 at 09:30 Metformin HCl (Glucophage) 1,000 mg BID WITH MEALS PO Last administered on 06/29/18at 07:36; Admin Dose 1,000 MG; Start 06/16/18 at 18:00 Ascorbic Acid (Vitamin C) 500 mg DAILY PO Last administered on 06/28/18 08:30; Admin Dose 500 MG; Start 06/17/18 at 09:00; Stop 08/16/18 at 08:59 Insulin Human NPH (Humulin N) 12 unit DAILY@20 SC Last administered on 06/28/18at 20:49; Admin Dose 12 UNIT; Start 06/17/18 at 20:00 Guaifenesin/ Codeine Phosphate (Robitussin Ac Liquid Cup) 5 ml Q4H PRN PO cough Last administered on 06/18/18 20:25; Admin Dose 5 ML; Start 06/18/18 at 12:00 Linezolid (Zyvox) 600 mg BID PO Last administered on 06/28/18 20:13; Admin Dose 600 MG; Start 06/18/18 at 21:00 Rifampin (Rifampin) 600 mg DAILY PO Last administered on 06/28/18 08:31; Admin Dose 600 MG; Start 06/20/18 at 14:30 Zolpidem Tartrate (Ambien) 10 mg HS PO Last administered on 06/28/18 20:12; Admin Dose 10 MG; Start 06/22/18 at 21:00 Multi-Ingredient Ointment (Eucerin Cream) 1 applic BID TOP Last administered on 06/28/18 20:50; Admin Dose 1 APPLIC; Start 06/24/18 at 10:00 Glimepiride (Amaryl) 4 mg QHS PO Last administered on 06/28/18 20:12; Admin Dose 4 MG; Start 06/25/18 at 21:00 Glimepiride (Amaryl) 2 mg AC BREAKFAST PO Last administered on 06/29/18 07:35; Admin Dose 2 MG; Start 06/26/18 at 07:00 Vancomycin HCl (Vanco Iv Per Pharmacy) VANCOMYCIN PER PHARMACY PER PROTOCOL XX ; Start 06/28/18 at 16:00 Vancomycin HCl 250 ml @ 125 mls/hr Q8H IVPB Last administered on 06/29/18 01:08; Admin Dose 125 MLS/HR; Start 06/28/18 at 17:00 IV Flush (NS 10 ml) 10 ml PRN PRN IV FLUSH LINE; Start 06/28/18 at 18:30 Assessment/Plan Hospital Course (Demo Recall) 1. MRSA bacteremia, with a possible vegetation on tricuspid valve on the transesophageal echocardiogram 2. Pneumonia 3. Status post DKA 4. Diabetes 5. Anemia 6. Homelessness Recommendations: Diabetic management as per internal medicine and endocrine windows consultant. Antibiotic management as per infectious disease recommendations. Okay to DC telemetry from cardiac standpoint thank you for this referral. We will continue to follow along with you ABDI JAY MD [facility] ABDI JAY MD Jun 29, 2018 07:53
[2018-06-29] MEDS: ASCORBIC ACID 500 MG TAB PO SCH (09:00)
[2018-06-29] MEDS: GUAIFENESIN/DM (SR) TAB PO SCH ×2 (09:07→21:44)
[2018-06-29] MEDS: FERROUS SULFATE (EC) 325 MG TAB PO SCH (09:07)
[2018-06-29] MEDS: ZYVOX 600 MG TAB PO SCH (09:07)
[2018-06-29] MEDS: RIFAMPIN 300 MG CAP PO SCH (09:07)
[2018-06-29] MEDS: EUCERIN 113 GM CR TOP SCH ×2 (09:09→21:55)
[2018-06-29] MEDS: ONDANSETRON 4 MG INJ IV PRN (09:15)
[2018-06-29] MEDS ORDERED: BARIUM SULF 2% 450 ML BTL (BERRY SMOOTHIE) PO ONE (10:30)
--- NOTE | 2018-06-29 10:35 | CONS ---
Consult Date/Type/Reason Admit Date/Time Jun 08, 2018 at 23:53 Initial Consult Date Type of Consult Pulmonary Requesting Provider: HAYDEE RAYO Date/Time of Note DATE: 06/29/18 TIME: 10:33 Subjective Patient comfortable this morning no respiratory distress Objective Vital Signs Date Temp Pulse Resp B/P (MAP) Pulse Ox O2 O2 Flow FiO2 Time Delivery Rate 06/29/18 93 08:12 06/29/18 97.9 20 99/64 (76) 97 Room Air 07:25 Intake and Output 06/28/18 06/28/18 06/29/18 1515:00 23:00 07:00 IntakeIntake Total 50 ml 1650 ml 750 ml BalanceBalance 50 ml 1650 ml 750 ml Exam GENERAL: VITAL SIGNS: per chart NECK: Supple. No JVD or lymphadenopathy. CARDIAC EXAM: S1, S2. No added sounds or murmurs. CHEST: clear bilaterally, No added sounds, rales or wheezes ABDOMEN: Soft, nontender. No guarding or rebound. EXTREMITIES: No cyanosis, clubbing or edema. NEUROLOGIC: Generalized weakness. No focal deficits. Vent Setting Fraction of Inspired Oxygen pe: 21 Results/Medications Result Diagram: 06/29/18 0556 06/29/18 0556 Results 24 hrs Laboratory Tests Test 06/28/18 11:35 06/28/18 16:56 06/28/18 20:11 06/29/18 05:56 Bedside Glucose 217 125 139 White Blood Count 5.8 Red Blood Count 4.17 L Hemoglobin 11.7 L Hematocrit 37.6 Mean Corpuscular 90.2 Volume Mean Corpuscular 28.1 L Hemoglobin Mean Corpuscular 31.1 L Hemoglobin Concent Red Cell 17.1 H Distribution Width Platelet Count 521 H Mean Platelet Volume 9.7 Immature 0.300 Granulocytes % Neutrophils % 44.3 Lymphocytes % 44.9 Monocytes % 6.2 Eosinophils % 3.4 Basophils % 0.9 Nucleated Red Blood 0.0 Cells % Immature 0.020 Granulocytes # Neutrophils # 2.6 Lymphocytes # 2.6 Monocytes # 0.4 Eosinophils # 0.2 Basophils # 0.1 Nucleated Red Blood 0.0 Cells # Sodium Level 140 Potassium Level 4.6 Chloride Level 102 Carbon Dioxide Level 30 Anion Gap 8 Blood Urea Nitrogen 9 Creatinine 0.40 L Est Glomerular > 60 Filtrat Rate mL/min Glucose Level 72 Calcium Level 8.8 Phosphorus Level 3.2 Magnesium Level 1.9 Test 06/29/18 07:35 Bedside Glucose 74 Medications Current Medications Ondansetron HCl (Zofran Inj) 4 mg Q6H PRN IV NAUSEA AND/OR VOMITING Last administered on 06/29/18 09:15; Admin Dose 4 MG; Start 06/09/18 at 00:30 Ipratropium [place] (Atrovent 0.02% (Neb)) 0.5 mg Q2H RESP THERAPY PRN NEB SHORTNESS OF BREATH Last administered on 06/14/18at 21:38; Admin Dose 0.5 MG; Start 06/09/18 at 00:30 Acetaminophen (Tylenol Liquid) 650 mg Q6H PRN PO PAIN LEVEL 1-3 OR FEVER Last administered on 06/29/18 05:58; Admin Dose 650 MG; Start 06/09/18 at 00:30 Docusate Sodium (Colace) 100 mg Q12H PRN PO CONSTIPATION Last administered on 06/29/18 05:59; Admin Dose 100 MG; Start 06/09/18 at 00:30 Bisacodyl (Dulcolax) 5 mg DAILY PRN PO CONSTIPATION Last administered on 06/29/18 05:58; Admin Dose 5 MG; Start 06/09/18 at 00:30 Pantoprazole (Protonix Tab) 40 mg DAILY@06 PO Last administered on 06/29/18 05:58; Admin Dose 40 MG; Start 06/09/18 at 06:00 Diagnostic Test (Pha) (Accu-Chek) 1 ea 02 XX Last administered on 06/26/18 01:56; Admin Dose 1 EA; Start 06/10/18 at 02:00 Insulin Aspart (Novolog Insulin Pen) NOVOLOG *MILD* ALGORITHM WITH MEALS BEDTIME SC Last administered on 06/28/18 11:43; Admin Dose 2 UNIT; Start 06/09/18 at 18:00 Miscellaneous Information 1 ea NOTE XX ; Start 06/09/18 at 14:30 Glucose (Glutose) 15 gm Q15M PRN PO DECREASED GLUCOSE; Start 06/09/18 at 14:30 Glucose (Glutose) 22.5 gm Q15M PRN PO DECREASED GLUCOSE; Start 06/09/18 at 14:30 Dextrose (D50w Syringe) 25 ml Q15M PRN IV DECREASED GLUCOSE Last administered on 06/15/18 20:53; Admin Dose 25 ML; Start 06/09/18 at 14:30 Dextrose (D50w Syringe) 50 ml Q15M PRN IV DECREASED GLUCOSE; Start 06/09/18 at 14:30 Glucagon (Glucagen) 1 mg Q15M PRN IM DECREASED GLUCOSE; Start 06/09/18 at 14:30 Glucose (Glutose) 15 gm Q15M PRN BUCCAL DECREASED GLUCOSE; Start 06/09/18 at 14:30 Ferrous Sulfate (Ferrous Sulfate (Ec)) 325 mg DAILY PO Last administered on 06/29/18 09:07; Admin Dose 325 MG; Start 06/13/18 at 10:30; Stop 08/12/18 at 10:29 Levalbuterol (Xopenex Neb) 1.25 mg Q6H RESP THERAPY PRN HHN sob/wheezing Last administered on 06/14/18 21:38; Admin Dose 1.25 MG; Start 06/14/18 at 09:00 Guaifenesin/ Dextromethorphan (Mucinex Dm) 1 tab BID PO Last administered on 06/29/18 09:07; Admin Dose 1 TAB; Start 06/14/18 at 09:30 Metformin HCl (Glucophage) 1,000 mg BID WITH MEALS PO Last administered on 06/29/18 07:36; Admin Dose 1,000 MG; Start 06/16/18 at 18:00 Ascorbic Acid (Vitamin C) 500 mg DAILY PO Last administered on 06/28/18 08:30; Admin Dose 500 MG; Start 06/17/18 at 09:00; Stop 08/16/18 at 08:59 Insulin Human NPH (Humulin N) 12 unit DAILY@20 SC Last administered on 06/28/18 t 20:49; Admin Dose 12 UNIT; Start 06/17/18 at 20:00 Guaifenesin/ Codeine Phosphate (Robitussin Ac Liquid Cup) 5 ml Q4H PRN PO cough Last administered on 06/18/18 20:25; Admin Dose 5 ML; Start 06/18/18 at 12:00 Linezolid (Zyvox) 600 mg BID PO Last administered on 06/29/18 09:07; Admin Dose 600 MG; Start 06/18/18 at 21:00 Rifampin (Rifampin) 600 mg DAILY PO Last administered on 06/29/18 09:07; Admin Dose 600 MG; Start 06/20/18 at 14:30 Zolpidem Tartrate (Ambien) 10 mg HS PO Last administered on 06/28/18at 20:12; Admin Dose 10 MG; Start 06/22/18 at 21:00 Multi-Ingredient Ointment (Eucerin Cream) 1 applic BID TOP Last administered on 06/29/18 09:09; Admin Dose 1 APPLIC; Start 06/24/18 at 10:00 Glimepiride (Amaryl) 4 mg QHS PO Last administered on 06/28/18 20:12; Admin Dose 4 MG; Start 06/25/18 at 21:00 Glimepiride (Amaryl) 2 mg AC BREAKFAST PO Last administered on 06/29/18 07:35; Admin Dose 2 MG; Start 06/26/18 at 07:00 Vancomycin HCl (Vanco Iv Per Pharmacy) VANCOMYCIN PER PHARMACY PER PROTOCOL XX ; Start 06/28/18 at 16:00 Vancomycin HCl 250 ml @ 125 mls/hr Q8H IVPB Last administered on 06/29/18 09:05; Admin Dose 125 MLS/HR; Start 06/28/18 at 17:00 IV Flush (NS 10 ml) 10 ml PRN PRN IV FLUSH LINE; Start 06/28/18 at 18:30 Barium Sulfate (Readi-Cat 2 ( [employer] )) Adult and Pediatric formulatio... GIVE PRIOR TO CT ONCE PO ; Start 06/29/18 at 10:30; Stop 06/29/18 at 10:31; Status UNV Assessment/Plan Hospital Course (Demo Recall) IMP: 1. Multifocal airspace opacities--> now evolution of cavitary nodules--findings concerning for septic pulmonary emboli. 2. BITA findings noted. Questionable vegetation on tricuspid valve. RECS: 1. Abx per ID, chest x-ray shows improvement left upper lobe. 2. Await QuantiFERON gold. 3. Consider p.o. management of possible endocarditis if no evidence of ongoing bacteremia. ALICIA HAZEL MD, [facility] Jun 29, 2018 10:35
[2018-06-29] MEDS: DEXTROSE 50% 50 ML SYRINGE IV PRN (12:11)
--- NOTE | 2018-06-29 13:23 | CONS ---
Assessment/Plan Assessment/Plan Hospital Course (Demo Recall) Patient is alert feels better looks comfortable no fevers overnight. She has a PICC line placed yesterday. AFB smears negative 3 sets, cocci neg Microbiology: Blood culture on June 08 grew MRSA, repeat blood cultures negative, sputum culture on June 16 grew Talia albicans and MRSA. Serology for HIV negative Antimicrobials: Zyvox Rifampin Vanco Physical examination: Well-developed middle-aged woman who is alert in no distress. Head atraumatic normocephalic sclera nonicteric. Neck is supple chest rise symmetrical breath sounds diminished bases. Heart S1-S2. Abdomen soft bowel sounds present. Extremities without cyanosis. Assessment: 1. S/p sepsis 2. 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 Necrotizing MRSA pneumonia with areas of cavitation per CT ?septic emboli 4. Homelessness 5. Poorly controlled diabetes 6. History of recent meth amphetamine abuse Plan: Stable, dc Zyvox, continue IV Vanco for 6 weeks, pending dc arrangements Consultation Date/Type/Reason Admit Date/Time Jun 08, 2018 at 23:53 Initial Consult Date Type of Consult id Requesting Provider: HAYDEE RAYO Date/Time of Note DATE: 06/29/18 TIME: 13:22 Exam/Review of Systems Exam Vitals Vital Signs Date Temp Pulse Resp B/P (MAP) Pulse Ox O2 O2 Flow FiO2 Time Delivery Rate 06/29/18 96 12:11 06/29/18 97.7 20 119/85 100 Room Air 11:14 (96) Intake and Output 06/28/18 06/28/18 06/29/18 1515:00 23:00 07:00 IntakeIntake Total 50 ml 1650 ml 750 ml BalanceBalance 50 ml 1650 ml 750 ml Results Result Diagram: 06/29/18 0556 06/29/18 0556 Results 24hrs Laboratory Tests Test 06/28/18 16:56 06/28/18 20:11 06/29/18 05:55 06/29/18 05:56 Bedside Glucose 125 139 Serum HCG, NEGATIVE Qualitative White Blood Count 5.8 Red Blood Count 4.17 L Hemoglobin 11.7 L Hematocrit 37.6 Mean Corpuscular 90.2 Volume Mean Corpuscular 28.1 L Hemoglobin Mean Corpuscular 31.1 L Hemoglobin Concent Red Cell 17.1 H Distribution Width Platelet Count 521 H Mean Platelet Volume 9.7 Immature 0.300 Granulocytes % Neutrophils % 44.3 Lymphocytes % 44.9 Monocytes % 6.2 Eosinophils % 3.4 Basophils % 0.9 Nucleated Red Blood 0.0 Cells % Immature 0.020 Granulocytes # Neutrophils # 2.6 Lymphocytes # 2.6 Monocytes # 0.4 Eosinophils # 0.2 Basophils # 0.1 Nucleated Red Blood 0.0 Cells # Sodium Level 140 Potassium Level 4.6 Chloride Level 102 Carbon Dioxide Level 30 Anion Gap 8 Blood Urea Nitrogen 9 Creatinine 0.40 L Est Glomerular > 60 Filtrat Rate mL/min Glucose Level 72 Calcium Level 8.8 Phosphorus Level 3.2 Magnesium Level 1.9 Test 06/29/18 07:35 06/29/18 12:07 06/29/18 12:21 06/29/18 12:40 Bedside Glucose 74 54 L 241 H 109 Medications Medication Current Medications Ondansetron HCl (Zofran Inj) 4 mg Q6H PRN IV NAUSEA AND/OR VOMITING Last administered on 06/29/18 09:15; Admin Dose 4 MG; Start 06/09/18 at 00:30 Ipratropium [place] (Atrovent 0.02% (Neb)) 0.5 mg Q2H RESP THERAPY PRN NEB SHORTNESS OF BREATH Last administered on 06/14/18 21:38; Admin Dose 0.5 MG; Start 06/09/18 at 00:30 Acetaminophen (Tylenol Liquid) 650 mg Q6H PRN PO PAIN LEVEL 1-3 OR FEVER Last administered on 06/29/18 05:58; Admin Dose 650 MG; Start 06/09/18 at 00:30 Docusate Sodium (Colace) 100 mg Q12H PRN PO CONSTIPATION Last administered on 06/29/18 05:59; Admin Dose 100 MG; Start 06/09/18 at 00:30 Bisacodyl (Dulcolax) 5 mg DAILY PRN PO CONSTIPATION Last administered on 06/29/18 05:58; Admin Dose 5 MG; Start 06/09/18 at 00:30 Pantoprazole (Protonix Tab) 40 mg DAILY@06 PO Last administered on 06/29/18 05:58; Admin Dose 40 MG; Start 06/09/18 at 06:00 Diagnostic Test (Pha) (Accu-Chek) 1 ea 02 XX Last administered on 06/26/18at 01:56; Admin Dose 1 EA; Start 06/10/18 at 02:00 Insulin Aspart (Novolog Insulin Pen) NOVOLOG *MILD* ALGORITHM WITH MEALS BEDTIME SC Last administered on 06/28/18 11:43; Admin Dose 2 UNIT; Start 06/09/18 at 18:00 Miscellaneous Information 1 ea NOTE XX ; Start 06/09/18 at 14:30 Glucose (Glutose) 15 gm Q15M PRN PO DECREASED GLUCOSE; Start 06/09/18 at 14:30 Glucose (Glutose) 22.5 gm Q15M PRN PO DECREASED GLUCOSE; Start 06/09/18 at 14:30 Dextrose (D50w Syringe) 25 ml Q15M PRN IV DECREASED GLUCOSE Last administered on 06/29/18at 12:11; Admin Dose 25 ML; Start 06/09/18 at 14:30 Dextrose (D50w Syringe) 50 ml Q15M PRN IV DECREASED GLUCOSE; Start 06/09/18 at 14:30 Glucagon (Glucagen) 1 mg Q15M PRN IM DECREASED GLUCOSE; Start 06/09/18 at 14:30 Glucose (Glutose) 15 gm Q15M PRN BUCCAL DECREASED GLUCOSE; Start 06/09/18 at 14:30 Ferrous Sulfate (Ferrous Sulfate (Ec)) 325 mg DAILY PO Last administered on 06/29/18 09:07; Admin Dose 325 MG; Start 06/13/18 at 10:30; Stop 08/12/18 at 10:29 Levalbuterol (Xopenex Neb) 1.25 mg Q6H RESP THERAPY PRN HHN sob/wheezing Last administered on 06/14/18at 21:38; Admin Dose 1.25 MG; Start 06/14/18 at 09:00 Guaifenesin/ Dextromethorphan (Mucinex Dm) 1 tab BID PO Last administered on 06/29/18 09:07; Admin Dose 1 TAB; Start 06/14/18 at 09:30 Metformin HCl (Glucophage) 1,000 mg BID WITH MEALS PO Last administered on 06/29/18 07:36; Admin Dose 1,000 MG; Start 06/16/18 at 18:00 Ascorbic Acid (Vitamin C) 500 mg DAILY PO Last administered on 06/28/18 08:30; Admin Dose 500 MG; Start 06/17/18 at 09:00; Stop 08/16/18 at 08:59 Insulin Human NPH (Humulin N) 12 unit DAILY@20 SC Last administered on 06/28/18 20:49; Admin Dose 12 UNIT; Start 06/17/18 at 20:00 Guaifenesin/ Codeine Phosphate (Robitussin Ac Liquid Cup) 5 ml Q4H PRN PO cough Last administered on 06/18/18 20:25; Admin Dose 5 ML; Start 06/18/18 at 12:00 Linezolid (Zyvox) 600 mg BID PO Last administered on 06/29/18 09:07; Admin Dose 600 MG; Start 06/18/18 at 21:00 Rifampin (Rifampin) 600 mg DAILY PO Last administered on 06/29/18 09:07; Admin Dose 600 MG; Start 06/20/18 at 14:30 Zolpidem Tartrate (Ambien) 10 mg HS PO Last administered on 06/28/18 20:12; Admin Dose 10 MG; Start 06/22/18 at 21:00 Multi-Ingredient Ointment (Eucerin Cream) 1 applic BID TOP Last administered on 06/29/18 09:09; Admin Dose 1 APPLIC; Start 06/24/18 at 10:00 Glimepiride (Amaryl) 4 mg QHS PO Last administered on 06/28/18 20:12; Admin Dose 4 MG; Start 06/25/18 at 21:00 Glimepiride (Amaryl) 2 mg AC BREAKFAST PO Last administered on 06/29/18 07:35; Admin Dose 2 MG; Start 06/26/18 at 07:00 Vancomycin HCl (Vanco Iv Per Pharmacy) VANCOMYCIN PER PHARMACY PER PROTOCOL XX ; Start 06/28/18 at 16:00 Vancomycin HCl 250 ml @ 125 mls/hr Q8H IVPB Last administered on 06/29/18 09:05; Admin Dose 125 MLS/HR; Start 06/28/18 at 17:00 IV Flush (NS 10 ml) 10 ml PRN PRN IV FLUSH LINE; Start 06/28/18 at 18:30 JOSE GOVEA NP Jun 29, 2018 13:23
[2018-06-29] MEDS ORDERED: MINERAL OIL 133 ML ENEMA PR ONE (16:00)
[2018-06-29] MEDS: MAGNESIUM CITRATE 300 ML BTL PO PRN (16:25)
--- NOTE | 2018-06-29 16:40 | PN ---
Date/Time of Note Date/Time of Note DATE: 06/29/18 TIME: 16:39 Objective Vitals Vital Signs Date Temp Pulse Resp B/P (MAP) Pulse Ox O2 O2 Flow FiO2 Time Delivery Rate 06/29/18 112 16:25 06/29/18 97.7 20 110/68 97 Room Air 15:15 (82) Intake and Output 06/28/18 06/28/18 06/29/18 1515:00 23:00 07:00 IntakeIntake Total 50 ml 1650 ml 750 ml BalanceBalance 50 ml 1650 ml 750 ml Results Result Diagram: 06/29/18 0556 06/29/1856 Medications Medications Current Medications Ondansetron HCl (Zofran Inj) 4 mg Q6H PRN IV NAUSEA AND/OR VOMITING Last administered on 06/29/18 09:15; Admin Dose 4 MG; Start 06/09/18 at 00:30 Ipratropium [place] (Atrovent 0.02% (Neb)) 0.5 mg Q2H RESP THERAPY PRN NEB SH ORTNESS OF BREATH Last administered on 06/14/18 21:38; Admin Dose 0.5 MG; Start 06/09/18 at 00:30 Acetaminophen (Tylenol Liquid) 650 mg Q6H PRN PO PAIN LEVEL 1-3 OR FEVER Last administered on 06/29/18 05:58; Admin Dose 650 MG; Start 06/09/18 at 00:30 Docusate Sodium (Colace) 100 mg Q12H PRN PO CONSTIPATION Last administered on 06/29/18 05:59; Admin Dose 100 MG; Start 06/09/18 at 00:30 Bisacodyl (Dulcolax) 5 mg DAILY PRN PO CONSTIPATION Last administered on 06/29/18 05:58; Admin Dose 5 MG; Start 06/09/18 at 00:30 Pantoprazole (Protonix Tab) 40 mg DAILY@06 PO Last administered on 06/29/18 05:58; Admin Dose 40 MG; Start 06/09/18 at 06:00 Diagnostic Test (Pha) (Accu-Chek) 1 ea 02 XX Last administered on 06/26/18 01:56; Admin Dose 1 EA; Start 06/10/18 at 02:00 Insulin Aspart (Novolog Insulin Pen) NOVOLOG *MILD* ALGORITHM WITH MEALS BEDTIME SC Last administered on 06/28/18 11:43; Admin Dose 2 UNIT; Start 06/09/18 at 18:00 Miscellaneous Information 1 ea NOTE XX ; Start 06/09/18 at 14:30 Glucose (Glutose) 15 gm Q15M PRN PO DECREASED GLUCOSE; Start 06/09/18 at 14:30 Glucose (Glutose) 22.5 gm Q15M PRN PO DECREASED GLUCOSE; Start 06/09/18 at 14:30 Dextrose (D50w Syringe) 25 ml Q15M PRN IV DECREASED GLUCOSE Last administered on 06/29/18at 12:11; Admin Dose 25 ML; Start 06/09/18 at 14:30 Dextrose (D50w Syringe) 50 ml Q15M PRN IV DECREASED GLUCOSE; Start 06/09/18 at 14:30 Glucagon (Glucagen) 1 mg Q15M PRN IM DECREASED GLUCOSE; Start 06/09/18 at 14:30 Glucose (Glutose) 15 gm Q15M PRN BUCCAL DECREASED GLUCOSE; Start 06/09/18 at 14:30 Ferrous Sulfate (Ferrous Sulfate (Ec)) 325 mg DAILY PO Last administered on 06/29/18 09:07; Admin Dose 325 MG; Start 06/13/18 at 10:30; Stop 08/12/18 at 10:29 Levalbuterol (Xopenex Neb) 1.25 mg Q6H RESP THERAPY PRN HHN sob/wheezing Last administered on 06/14/18at 21:38; Admin Dose 1.25 MG; Start 06/14/18 at 09:00 Guaifenesin/ Dextromethorphan (Mucinex Dm) 1 tab BID PO Last administered on 06/29/18 09:07; Admin Dose 1 TAB; Start 06/14/18 at 09:30 Metformin HCl (Glucophage) 1,000 mg BID WITH MEALS PO Last administered on 06/29/18 07:36; Admin Dose 1,000 MG; Start 06/16/18 at 18:00 Ascorbic Acid (Vitamin C) 500 mg DAILY PO Last administered on 06/28/18 08:30; Admin Dose 500 MG; Start 06/17/18 at 09:00; Stop 08/16/18 at 08:59 Insulin Human NPH (Humulin N) 12 unit DAILY@20 SC Last administered on 06/28/18 20:49; Admin Dose 12 UNIT; Start 06/17/18 at 20:00 Guaifenesin/ Codeine Phosphate (Robitussin Ac Liquid Cup) 5 ml Q4H PRN PO cough Last administered on 06/18/18 20:25; Admin Dose 5 ML; Start 06/18/18 at 12:00 Rifampin (Rifampin) 600 mg DAILY PO Last administered on 06/29/18 09:07; Admin Dose 600 MG; Start 06/20/18 at 14:30 Zolpidem Tartrate (Ambien) 10 mg HS PO Last administered on 06/28/18 20:12; Admin Dose 10 MG; Start 06/22/18 at 21:00 Multi-Ingredient Ointment (Eucerin Cream) 1 applic BID TOP Last administered on 06/29/18 09:09; Admin Dose 1 APPLIC; Start 06/24/18 at 10:00 Glimepiride (Amaryl) 4 mg QHS PO Last administered on 06/28/18 20:12; Admin Dose 4 MG; Start 06/25/18 at 21:00 Glimepiride (Amaryl) 2 mg AC BREAKFAST PO Last administered on 06/29/18 07:35; Admin Dose 2 MG; Start 06/26/18 at 07:00 Vancomycin HCl (Vanco Iv Per Pharmacy) VANCOMYCIN PER PHARMACY PER PROTOCOL XX ; Start 06/28/18 at 16:00 Vancomycin HCl 250 ml @ 125 mls/hr Q8H IVPB Last administered on 06/29/18 09:05; Admin Dose 125 MLS/HR; Start 06/28/18 at 17:00 IV Flush (NS 10 ml) 10 ml PRN PRN IV FLUSH LINE; Start 06/28/18 at 18:30 Magnesium Citrate (Citroma) 300 ml DAILY PRN PO constipation Last administered on 06/29/18 16:25; Admin Dose 300 ML; Start 06/29/18 at 15:00 VTE Prophylaxis Risk score (from Nsg)>0 risk: 4 SCD applied (from Nsg): No SCD contraindication: other Lines/Catheters IV Catheter Type: Garcia in Place: No Assessment/Plan Hospital Course Subjective doing okay, no acute complaints Objective Physical exam General: Patient is laying in bed and answers questions appropriately Mentation: Patient is alert and oriented 4, Head: Normocephalic atraumatic Eyes: EOMI, pupils reactive to light Neck: Supple, nontender, midline Respiratory: Coarse to auscultation bilaterally Cardiovascular: regular rate, no obvious murmurs Gastrointestinal: non-tender to palpation, bowel sounds heard. Neurological: Moves all extremities spontaneously Skin: No new skin lesions Assessment/Plan Possible Endocarditis -found on BITA -IV abx 6 weeks per ID, however this may impose an issue as patient has a history of drug use, patient denies IV drug use however will need to move forward cautiously Abdominal pain -Acute onset from last night -Stat CT abdomen pelvis ordered found to have large amounts of stool -Bowel regimen MRSA bacteremia - Repeat blood culture negative. Remains afebrile with nl WBC. - ID on board and appreciate recommendations. Continue on current antibiotics Tachycardia - most likely secondary to pulmonary process Poorly controlled diabetes - A1c noted - continues to fluctuate based on diet compliance - Admits to eating outside food since current diet is very bland. Discussed need to follow low sugar, low carb diet - Endocrinology on board and appreciate recommendations. Continue on current insulin and glimepiride. Extensive bilateral multilobar pneumonia - Patient found with MRSA in sputum and CT scan showing cavitating lesions but improvement in bilateral infiltrate - Pulm on board and continue current treatment. Cocci studies. After review of recent CT scan concern for septic emboli. - Repeat CT scan performed this am showing "Multifocal bilateral areas of pneumonia are again present and have diminished in overall size however there is interval development of multiple foci of lucencies within the areas of consolidation suggestive for bronchiectasis or developing small cavitary lesions." - ID recommendations appreciated Homelessness - SW on board - patient states she plans to go to rehab following discharge History of meth abuse - Patient states last use was 2 weeks prior to admission. Counseled on cessation. Tobacco use - Cessation advised. Iron Deficient anemia. - Continue oral iron. - H&H stable. Mild asthma. - Currently stable - nebs PRN Disposition -We will need infectious disease and pulmonology to finish workup, ultimately patient will need placement for 6 weeks of IV antibiotics. HAYDEE RAYO Jun 29, 2018 16:40
[2018-06-29] MEDS: GLIMEPIRIDE 4 MG TAB PO SCH (21:44)
[2018-06-29] MEDS: NPH, HUMAN INSULIN ISOPHANE 3ML VIAL SC SCH (21:49)
[2018-06-29] MEDS: ZOLPIDEM 5 MG TAB PO PRN (21:55)
[2018-06-30] VITALS (12 sets, daily range): BP systolic 103–120; BP diastolic 56–76; PULSE 55–113; RESP 17–21
[2018-06-30] MEDS: VANCOMYCIN 1 GM 250 ML IVPB SCH ×3 (00:10→17:00)
[2018-06-30] MEDS: ACCU-CHEK XX SCH (02:00)
[2018-06-30] MEDS: GLIMEPIRIDE 2 MG TAB PO SCH (06:45)
[2018-06-30] MEDS: PANTOPRAZOLE (EC) 40 MG TAB PO SCH (06:45)
[2018-06-30] MEDS: FERROUS SULFATE (EC) 325 MG TAB PO SCH (08:36)
[2018-06-30] MEDS: RIFAMPIN 300 MG CAP PO SCH (08:36)
[2018-06-30] MEDS: ASCORBIC ACID 500 MG TAB PO SCH (08:36)
[2018-06-30] MEDS: metFORMIN 500 MG TAB PO SCH ×2 (08:36→18:37)
[2018-06-30] MEDS: GUAIFENESIN/DM (SR) TAB PO SCH ×2 (08:36→20:54)
[2018-06-30] MEDS: EUCERIN 113 GM CR TOP SCH ×2 (08:37→20:55)
--- NOTE | 2018-06-30 08:44 | PAC ---
Date/Time of Note Date/Time of Note DATE: 06/30/18 TIME: 08:44 Post-Anesthesia Notes Post-Anesthesia Note Last documented vital signs Vital Signs Date Temp Pulse Resp B/P (MAP) Pulse Ox O2 O2 Flow FiO2 Time Delivery Rate 06/30/18 98.2 88 18 107/67 98 08:06 (80) 06/29/18 Room Air 15:15 Activity: WNL Respiratory function: WNL Cardiovascular function: WNL Mental status: Baseline Pain reasonably controlled: Yes Hydration appropriate: Yes Nausea/Vomiting absent: Yes MARCELINA WELSH MD Jun 30, 2018 08:44
[2018-06-30] MEDS: INSULIN ASPART [NOVOLOG] 3 ML PEN SC SCH ×4 (08:51→20:54)
[2018-06-30] MEDS: ONDANSETRON 4 MG INJ IV PRN (08:51)
--- NOTE | 2018-06-30 09:26 | CONS ---
Assessment/Plan Assessment/Plan Assessment/Plan (Daily) Assessment and recommendations; 1. Patient admitted with multi lobar pneumonia with micro cavitation with significant clinical and radiological improvement. MRSA isolated from sputum as well as patient has had MRSA bacteremia. 2. Questionable endocarditis. 3. Pulmonary tuberculosis very unlikely in view of clinical and radiological improvement. AFB stain negative on sputum. Continue current supportive care. Antibiotics per ID recommendations. Consultation Date/Type/Reason Admit Date/Time Jun 08, 2018 at 23:53 Initial Consult Date Type of Consult Pulmonary Requesting Provider: HAYDEE RAYO Date/Time of Note DATE: 06/30/18 TIME: 09:25 24 HR Interval Summary Free Text/Dictation Patient's condition is stable. Denies any coughing, wheezing, shortness of breath, fever chills, any sputum production. General exam; young female, awake alert, currently no distress. Exam/Review of Systems Exam Vitals Vital Signs Date Temp Pulse Resp B/P (MAP) Pulse Ox O2 O2 Flow FiO2 Time Delivery Rate 06/30/18 91 08:47 06/30/18 98.2 18 107/67 98 08:06 (80) 06/29/18 Room Air 15:15 Intake and Output 06/29/18 06/29/18 06/30/18 1515:00 23:00 07:00 IntakeIntake Total 250 ml 1200 ml BalanceBalance 250 ml 1200 ml Exam H EENT exam; supple neck, no JVD. No lymphadenopathy. Midline trachea. No thyromegaly. Pharynx is clear. Patient has good dentition. Chest exam; clear to auscultation. S1-S2 audible, no murmurs. Regular rhythm. Abdomen exam; soft, nontender. No organomegaly. Bowel sounds audible. Extremity exam; no peripheral edema clubbing. 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 Results Result Diagram: 06/30/18 0529 06/30/18 0529 Results 24hrs Laboratory Tests Test 06/29/18 12:07 06/29/18 12:21 06/29/18 12:40 06/29/18 16:15 Bedside Glucose 54 L 241 H 109 Vancomycin Level 11.0 Trough Test 06/29/18 16:59 06/29/18 21:43 06/30/18 01:52 06/30/18 05:29 Bedside Glucose 72 181 95 White Blood Count 6.1 Red Blood Count 4.17 L Hemoglobin 11.6 L Hematocrit 37.3 Mean Corpuscular 89.4 Volume Mean Corpuscular 27.8 L Hemoglobin Mean Corpuscular 31.1 L Hemoglobin Concent Red Cell 17.2 H Distribution Width Platelet Count 442 H Mean Platelet Volume 9.8 Immature 0.200 Granulocytes % Neutrophils % 40.7 Lymphocytes % 48.2 Monocytes % 6.0 Eosinophils % 4.1 Basophils % 0.8 Nucleated Red Blood 0.0 Cells % Immature 0.010 Granulocytes # Neutrophils # 2.5 Lymphocytes # 3.0 H Monocytes # 0.4 Eosinophils # 0.3 Basophils # 0.1 Nucleated Red Blood 0.0 Cells # Sodium Level 138 Potassium Level 3.9 Chloride Level 107 Carbon Dioxide Level 28 Anion Gap 3 L Blood Urea Nitrogen 6 L Creatinine 0.30 L Est Glomerular > 60 Filtrat Rate mL/min Glucose Level 59 #L Calcium Level 8.8 Phosphorus Level 3.1 Magnesium Level 2.1 Test 06/30/18 08:33 Bedside Glucose 204 Medications Medication Current Medications Ondansetron HCl (Zofran Inj) 4 mg Q6H PRN IV NAUSEA AND/OR VOMITING Last administered on 06/30/18 08:51; Admin Dose 4 MG; Start 06/09/18 at 00:30 Ipratropium [place] (Atrovent 0.02% (Neb)) 0.5 mg Q2H RESP THERAPY PRN NEB SHORTNESS OF BREATH Last administered on 06/14/18 21:38; Admin Dose 0.5 MG; Start 06/09/18 at 00:30 Acetaminophen (Tylenol Liquid) 650 mg Q6H PRN PO PAIN LEVEL 1-3 OR FEVER Last administered on 06/29/18 05:58; Admin Dose 650 MG; Start 06/09/18 at 00:30 Docusate Sodium (Colace) 100 mg Q12H PRN PO CONSTIPATION Last administered on 06/29/18 05:59; Admin Dose 100 MG; Start 06/09/18 at 00:30 Bisacodyl (Dulcolax) 5 mg DAILY PRN PO CONSTIPATION Last administered on 06/29/18 05:58; Admin Dose 5 MG; Start 06/09/18 at 00:30 Pantoprazole (Protonix Tab) 40 mg DAILY@06 PO Last administered on 4/12/19at 06:45; Admin Dose 40 MG; Start 06/09/18 at 06:00 Diagnostic Test (Pha) (Accu-Chek) 1 ea 02 XX Last administered on 06/26/18at 01:56; Admin Dose 1 EA; Start 06/10/18 at 02:00 Insulin Aspart (Novolog Insulin Pen) NOVOLOG *MILD* ALGORITHM WITH MEALS BEDTIME SC Last administered on 06/30/18at 08:51; Admin Dose 2 UNIT; Start 06/09/18 at 18:00 Miscellaneous Information 1 ea NOTE XX ; Start 06/09/18 at 14:30 Glucose (Glutose) 15 gm Q15M PRN PO DECREASED GLUCOSE; Start 06/09/18 at 14:30 Glucose (Glutose) 22.5 gm Q15M PRN PO DECREASED GLUCOSE; Start 06/09/18 at 14:30 Dextrose (D50w Syringe) 25 ml Q15M PRN IV DECREASED GLUCOSE Last administered on 06/29/18at 12:11; Admin Dose 25 ML; Start 06/09/18 at 14:30 Dextrose (D50w Syringe) 50 ml Q15M PRN IV DECREASED GLUCOSE; Start 06/09/18 at 14:30 Glucagon (Glucagen) 1 mg Q15M PRN IM DECREASED GLUCOSE; Start 06/09/18 at 14:30 Glucose (Glutose) 15 gm Q15M PRN BUCCAL DECREASED GLUCOSE; Start 06/09/18 at 14:30 Ferrous Sulfate (Ferrous Sulfate (Ec)) 325 mg DAILY PO Last administered on 06/30/18at 08:36; Admin Dose 325 MG; Start 06/13/18 at 10:30; Stop 08/12/18 at 10:29 Levalbuterol (Xopenex Neb) 1.25 mg Q6H RESP THERAPY PRN HHN sob/wheezing Last administered on 06/14/18at 21:38; Admin Dose 1.25 MG; Start 06/14/18 at 09:00 Guaifenesin/ Dextromethorphan (Mucinex Dm) 1 tab BID PO Last administered on 06/30/18at 08:36; Admin Dose 1 TAB; Start 06/14/18 at 09:30 Metformin HCl (Glucophage) 1,000 mg BID WITH MEALS PO Last administered on 06/30/18at 08:36; Admin Dose 1,000 MG; Start 06/16/18 at 18:00 Ascorbic Acid (Vitamin C) 500 mg DAILY PO Last administered on 06/30/18 08:36; Admin Dose 500 MG; Start 06/17/18 at 09:00; Stop 08/16/18 at 08:59 Insulin Human NPH (Humulin N) 12 unit DAILY@20 SC Last administered on 06/29/18 21:49; Admin Dose 12 UNIT; Start 06/17/18 at 20:00 Guaifenesin/ Codeine Phosphate (Robitussin Ac Liquid Cup) 5 ml Q4H PRN PO cough Last administered on 06/18/18 20:25; Admin Dose 5 ML; Start 06/18/18 at 12:00 Rifampin (Rifampin) 600 mg DAILY PO Last administered on 06/30/18 08:36; Admin Dose 600 MG; Start 06/20/18 at 14:30 Multi-Ingredient Ointment (Eucerin Cream) 1 applic BID TOP Last administered on 06/30/18 08:37; Admin Dose 1 APPLIC; Start 06/24/18 at 10:00 Glimepiride (Amaryl) 4 mg QHS PO Last administered on 06/29/18 21:44; Admin Dose 4 MG; Start 06/25/18 at 21:00 Glimepiride (Amaryl) 2 mg AC BREAKFAST PO Last administered on 06/30/18 06:45; Admin Dose 2 MG; Start 06/26/18 at 07:00 Vancomycin HCl (Vanco Iv Per Pharmacy) VANCOMYCIN PER PHARMACY PER PROTOCOL XX ; Start 06/28/18 at 16:00 Vancomycin HCl 250 ml @ 125 mls/hr Q8H IVPB Last administered on 06/30/18 08:37; Admin Dose 125 MLS/HR; Start 06/28/18 at 17:00 IV Flush (NS 10 ml) 10 ml PRN PRN IV FLUSH LINE; Start 06/28/18 at 18:30 Magnesium Citrate (Citroma) 300 ml DAILY PRN PO constipation Last administered on 06/29/18 16:25; Admin Dose 300 ML; Start 06/29/18 at 15:00 Zolpidem Tartrate (Ambien) 10 mg HS PRN PO insomnia Last administered on 06/29/18 21:55; Admin Dose 10 MG; Start 4/11/19 at 17:00 JERAMIE YEAGER Jun 30, 2018 09:26
--- NOTE | 2018-06-30 12:32 | PN ---
Date/Time of Note Date/Time of Note DATE: 06/30/18 TIME: 12:32 Objective Vitals Vital Signs Date Temp Pulse Resp B/P (MAP) Pulse Ox O2 O2 Flow FiO2 Time Delivery Rate 06/30/18 113 12:24 06/30/18 98.2 19 120/56 98 11:18 (77) 06/29/18 Room Air 15:15 Intake and Output 06/29/18 06/29/18 06/30/18 1515:00 23:00 07:00 IntakeIntake Total 250 ml 1200 ml BalanceBalance 250 ml 1200 ml Results Result Diagram: 06/30/1852806/30/18528 Medications Medications Current Medications Ondansetron HCl (Zofran Inj) 4 mg Q6H PRN IV NAUSEA AND/OR VOMITING Last administered on 06/30/18 08:51; Admin Dose 4 MG; Start 06/09/18 at 00:30 Ipratropium [place] (Atrovent 0.02% (Neb)) 0.5 mg Q2H RESP THERAPY PRN NEB SHORTNESS OF BREATH Last administered on 06/14/18 21:38; Admin Dose 0.5 MG; Start 06/09/18 at 00:30 Acetaminophen (Tylenol Liquid) 650 mg Q6H PRN PO PAIN LEVEL 1-3 OR FEVER Last administered on 06/29/18 05:58; Admin Dose 650 MG; Start 06/09/18 at 00:30 Docusate Sodium (Colace) 100 mg Q12H PRN PO CONSTIPATION Last administered on 06/29/18 05:59; Admin Dose 100 MG; Start 06/09/18 at 00:30 Bisacodyl (Dulcolax) 5 mg DAILY PRN PO CONSTIPATION Last administered on 06/29/18 05:58; Admin Dose 5 MG; Start 06/09/18 at 00:30 Pantoprazole (Protonix Tab) 40 mg DAILY@06 PO Last administered on 06/30/18 06:45; Admin Dose 40 MG; Start 06/09/18 at 06:00 Diagnostic Test (Pha) (Accu-Chek) 1 ea 02 XX Last administered on 06/26/18 01:56; Admin Dose 1 EA; Start 06/10/18 at 02:00 Insulin Aspart (Novolog Insulin Pen) NOVOLOG *MILD* ALGORITHM WITH MEALS BEDTIME SC Last administered on 06/30/18 12:13; Admin Dose 1 UNIT; Start 06/09/18 at 18:00 Miscellaneous Information 1 ea NOTE XX ; Start 06/09/18 at 14:30 Glucose (Glutose) 15 gm Q15M PRN PO DECREASED GLUCOSE; Start 06/09/18 at 14:30 Glucose (Glutose) 22.5 gm Q15M PRN PO DECREASED GLUCOSE; Start 06/09/18 at 14:30 Dextrose (D50w Syringe) 25 ml Q15M PRN IV DECREASED GLUCOSE Last administered on 06/29/18 12:11; Admin Dose 25 ML; Start 06/09/18 at 14:30 Dextrose (D50w Syringe) 50 ml Q15M PRN IV DECREASED GLUCOSE; Start 06/09/18 at 14:30 Glucagon (Glucagen) 1 mg Q15M PRN IM DECREASED GLUCOSE; Start 06/09/18 at 14:30 Glucose (Glutose) 15 gm Q15M PRN BUCCAL DECREASED GLUCOSE; Start 06/09/18 at 14:30 Ferrous Sulfate (Ferrous Sulfate (Ec)) 325 mg DAILY PO Last administered on 06/30/18 08:36; Admin Dose 325 MG; Start 06/13/18 at 10:30; Stop 08/12/18 at 10:29 Levalbuterol (Xopenex Neb) 1.25 mg Q6H RESP THERAPY PRN HHN sob/wheezing Last administered on 06/14/18at 21:38; Admin Dose 1.25 MG; Start 06/14/18 at 09:00 Guaifenesin/ Dextromethorphan (Mucinex Dm) 1 tab BID PO Last administered on 06/30/18 08:36; Admin Dose 1 TAB; Start 06/14/18 at 09:30 Metformin HCl (Glucophage) 1,000 mg BID WITH MEALS PO Last administered on 06/30/18 08:36; Admin Dose 1,000 MG; Start 06/16/18 at 18:00 Ascorbic Acid (Vitamin C) 500 mg DAILY PO Last administered on 06/30/18 08:36; Admin Dose 500 MG; Start 06/17/18 at 09:00; Stop 08/16/18 at 08:59 Insulin Human NPH (Humulin N) 12 unit DAILY@20 SC Last administered on 06/29/18 21:49; Admin Dose 12 UNIT; Start 06/17/18 at 20:00 Guaifenesin/ Codeine Phosphate (Robitussin Ac Liquid Cup) 5 ml Q4H PRN PO cough Last administered on 06/18/18 20:25; Admin Dose 5 ML; Start 06/18/18 at 12:00 Rifampin (Rifampin) 600 mg DAILY PO Last administered on 06/30/18 08:36; Admin Dose 600 MG; Start 06/20/18 at 14:30 Multi-Ingredient Ointment (Eucerin Cream) 1 applic BID TOP Last administered on 06/30/18 08:37; Admin Dose 1 APPLIC; Start 06/24/18 at 10:00 Glimepiride (Amaryl) 4 mg QHS PO Last administered on 06/29/18 21:44; Admin Dose 4 MG; Start 06/25/18 at 21:00 Glimepiride (Amaryl) 2 mg AC BREAKFAST PO Last administered on 06/30/18 06:45; Admin Dose 2 MG; Start 06/26/18 at 07:00 Vancomycin HCl (Vanco Iv Per Pharmacy) VANCOMYCIN PER PHARMACY PER PROTOCOL XX ; Start 06/28/18 at 16:00 Vancomycin HCl 250 ml @ 125 mls/hr Q8H IVPB Last administered on 06/30/18 08:37; Admin Dose 125 MLS/HR; Start 06/28/18 at 17:00 IV Flush (NS 10 ml) 10 ml PRN PRN IV FLUSH LINE; Start 06/28/18 at 18:30 Magnesium Citrate (Citroma) 300 ml DAILY PRN PO constipation Last administered on 06/29/18 16:25; Admin Dose 300 ML; Start 06/29/18 at 15:00 Zolpidem Tartrate (Ambien) 10 mg HS PRN PO insomnia Last administered on 06/29/18 21:55; Admin Dose 10 MG; Start 06/29/18 at 17:00 VTE Prophylaxis Risk score (from Nsg)>0 risk: 3 SCD applied (from Nsg): No SCD contraindication: other Lines/Catheters IV Catheter Type: Garcia in Place: No Assessment/Plan Hospital Course Subjective doing okay, no acute complaints Objective Physical exam General: Patient is laying in bed and answers questions appropriately Mentation: Patient is alert and oriented 4, Head: Normocephalic atraumatic Eyes: EOMI, pupils reactive to light Neck: Supple, nontender, midline Respiratory: Coarse to auscultation bilaterally Cardiovascular: regular rate, no obvious murmurs Gastrointestinal: non-tender to palpation, bowel sounds heard. Neurological: Moves all extremities spontaneously Skin: No new skin lesions Assessment/Plan Possible Endocarditis -found on BITA -IV abx 6 weeks per ID, however this may impose an issue as patient has a history of drug use, patient denies IV drug use however will need to move forward cautiously Abdominal pain, resolved -Stat CT abdomen pelvis ordered found to have large amounts of stool -Bowel regimen MRSA bacteremia - Repeat blood culture negative. Remains afebrile with nl WBC. - ID on board and appreciate recommendations. Continue on current antibiotics Tachycardia - most likely secondary to pulmonary process Poorly controlled diabetes - A1c noted - continues to fluctuate based on diet compliance - Admits to eating outside food since current diet is very bland. Discussed need to follow low sugar, low carb diet - Endocrinology on board and appreciate recommendations. Continue on current insulin and glimepiride. Extensive bilateral multilobar pneumonia - Patient found with MRSA in sputum and CT scan showing cavitating lesions but improvement in bilateral infiltrate - Pulm on board and continue current treatment. Cocci studies. After review of recent CT scan concern for septic emboli. - Repeat CT scan performed this am showing "Multifocal bilateral areas of pneumonia are again present and have diminished in overall size however there is interval development of multiple foci of lucencies within the areas of consolidation suggestive for bronchiectasis or developing small cavitary lesions." - ID recommendations appreciated Homelessness - SW on board - patient states she plans to go to rehab following discharge History of meth abuse - Patient states last use was 2 weeks prior to admission. Counseled on cessation. Tobacco use - Cessation advised. Iron Deficient anemia. - Continue oral iron. - H&H stable. Mild asthma. - Currently stable - nebs PRN Disposition -We will need infectious disease and pulmonology to finish workup, ultimately patient will need placement for 6 weeks of IV antibiotics. HAYDEE RAYO Jun 30, 2018 12:32
--- NOTE | 2018-06-30 18:29 | CONS ---
Consult Date/Type/Reason Admit Date/Time Jun 08, 2018 at 23:53 Initial Consult Date 06/26/18 Type of Consultation: cv Requesting Provider: HAYDEE RAYO Date/Time of Note DATE: 06/30/18 TIME: 18:27 Subjective Cardiology follow-up progress Subjective: Discussed with the staff telemetry was reviewed patient remained sinus rhythm/sinus tachycardia Patient is in isolation no report of chest pain Objective: General: no acute distress HEENT: NC/AT. pupils are equal. round. NECK: NO JVD. no stridor. CV: RRR. systolic murmur; no gallop or rubs. PULM: no wheezing + rhonchi. GI: SOFT, NT, ND, no rebound or guarding Extremity: No significant B/L LE edema. no clubbing. neuro: Sleeping comfortably Psych: calm and pleasant rectal: deferred Derm: Multiple tattoos Repeat echocardiogram on 06/26/2018 shows: Normal left ventricular systolic function. Normal left ventricular cavity size. Left ventricular wall thickness upper limits of normal. Ejection fraction is visually estimated at 60 %. Tissue Doppler/Mitral Doppler indices are consistent with impaired relaxation (Stage I diastolic dysfunction). Normal right ventricular size. Normal right ventricular systolic function. The left atrium is normal in size. The right atrium is normal in size. No significant valvular stenosis or regurgitation seen. Normal pericardium with no significant pericardial effusion. BITA 06/28/18 Normal LV size and systolic function with trace MR and TR Echo density/thickening of the tricuspid valve is noted. Vegetation cannot be ruled out Objective Vitals Vital Signs Date Temp Pulse Resp B/P (MAP) Pulse Ox O2 O2 Flow FiO2 Time Delivery Rate 06/30/18 101 16:26 06/30/18 98.2 19 103/61 98 15:14 (75) 06/29/18 Room Air 15:15 Intake and Output 06/29/18 06/29/18 06/30/18 1515:00 23:00 07:00 IntakeIntake Total 250 ml 1200 ml BalanceBalance 250 ml 1200 ml Results/Medications Result Diagram: 06/30/18 0529 06/30/18 0529 Results 24 hrs Laboratory Tests Test 06/29/18 21:43 06/30/18 01:52 06/30/18 05:29 06/30/18 08:33 Bedside Glucose 181 95 204 White Blood Count 6.1 Red Blood Count 4.17 L Hemoglobin 11.6 L Hematocrit 37.3 Mean Corpuscular 89.4 Volume Mean Corpuscular 27.8 L Hemoglobin Mean Corpuscular 31.1 L Hemoglobin Concent Red Cell 17.2 H Distribution Width Platelet Count 442 H Mean Platelet Volume 9.8 Immature 0.200 Granulocytes % Neutrophils % 40.7 Lymphocytes % 48.2 Monocytes % 6.0 Eosinophils % 4.1 Basophils % 0.8 Nucleated Red Blood 0.0 Cells % Immature 0.010 Granulocytes # Neutrophils # 2.5 Lymphocytes # 3.0 H Monocytes # 0.4 Eosinophils # 0.3 Basophils # 0.1 Nucleated Red Blood 0.0 Cells # Sodium Level 138 Potassium Level 3.9 Chloride Level 107 Carbon Dioxide Level 28 Anion Gap 3 L Blood Urea Nitrogen 6 L Creatinine 0.30 L Est Glomerular > 60 Filtrat Rate mL/min Glucose Level 59 #L Calcium Level 8.8 Phosphorus Level 3.1 Magnesium Level 2.1 Test 06/30/18 12:03 06/30/18 15:48 06/30/18 17:37 Bedside Glucose 155 171 Vancomycin Level 12.7 Trough Home Meds Unable to Obtain Active Prescriptions or Reported Meds Medications Current Medications Ondansetron HCl (Zofran Inj) 4 mg Q6H PRN IV NAUSEA AND/OR VOMITING Last administered on 06/30/18at 08:51; Admin Dose 4 MG; Start 06/09/18 at 00:30 Ipratropium [place] (Atrovent 0.02% (Neb)) 0.5 mg Q2H RESP THERAPY PRN NEB SHORTNESS OF BREATH Last administered on 06/14/18at 21:38; Admin Dose 0.5 MG; Start 06/09/18 at 00:30 Acetaminophen (Tylenol Liquid) 650 mg Q6H PRN PO PAIN LEVEL 1-3 OR FEVER Last administered on 06/29/18 05:58; Admin Dose 650 MG; Start 06/09/18 at 00:30 Docusate Sodium (Colace) 100 mg Q12H PRN PO CONSTIPATION Last administered on 06/29/18 05:59; Admin Dose 100 MG; Start 06/09/18 at 00:30 Bisacodyl (Dulcolax) 5 mg DAILY PRN PO CONSTIPATION Last administered on 06/29/18 05:58; Admin Dose 5 MG; Start 06/09/18 at 00:30 Pantoprazole (Protonix Tab) 40 mg DAILY@06 PO Last administered on 06/30/18 06:45; Admin Dose 40 MG; Start 06/09/18 at 06:00 Diagnostic Test (Pha) (Accu-Chek) 1 ea 02 XX Last administered on 06/26/18 01:56; Admin Dose 1 EA; Start 06/10/18 at 02:00 Insulin Aspart (Novolog Insulin Pen) NOVOLOG *MILD* ALGORITHM WITH MEALS BEDTIME SC Last administered on 06/30/18 12:13; Admin Dose 1 UNIT; Start 06/09/18 at 18:00 Miscellaneous Information 1 ea NOTE XX ; Start 06/09/18 at 14:30 Glucose (Glutose) 15 gm Q15M PRN PO DECREASED GLUCOSE; Start 06/09/18 at 14:30 Glucose (Glutose) 22.5 gm Q15M PRN PO DECREASED GLUCOSE; Start 06/09/18 at 14:30 Dextrose (D50w Syringe) 25 ml Q15M PRN IV DECREASED GLUCOSE Last administered on 06/29/18at 12:11; Admin Dose 25 ML; Start 06/09/18 at 14:30 Dextrose (D50w Syringe) 50 ml Q15M PRN IV DECREASED GLUCOSE; Start 06/09/18 at 14:30 Glucagon (Glucagen) 1 mg Q15M PRN IM DECREASED GLUCOSE; Start 06/09/18 at 14:30 Glucose (Glutose) 15 gm Q15M PRN BUCCAL DECREASED GLUCOSE; Start 06/09/18 at 14:30 Ferrous Sulfate (Ferrous Sulfate (Ec)) 325 mg DAILY PO Last administered on 06/30/18 08:36; Admin Dose 325 MG; Start 06/13/18 at 10:30; Stop 08/12/18 at 10:29 Levalbuterol (Xopenex Neb) 1.25 mg Q6H RESP THERAPY PRN HHN sob/wheezing Last administered on 06/14/18at 21:38; Admin Dose 1.25 MG; Start 06/14/18 at 09:00 Guaifenesin/ Dextromethorphan (Mucinex Dm) 1 tab BID PO Last administered on 06/30/18 08:36; Admin Dose 1 TAB; Start 06/14/18 at 09:30 Metformin HCl (Glucophage) 1,000 mg BID WITH MEALS PO Last administered on 06/30/18 08:36; Admin Dose 1,000 MG; Start 06/16/18 at 18:00 Ascorbic Acid (Vitamin C) 500 mg DAILY PO Last administered on 06/30/18 08:36; Admin Dose 500 MG; Start 06/17/18 at 09:00; Stop 08/16/18 at 08:59 Insulin Human NPH (Humulin N) 12 unit DAILY@20 SC Last administered on 06/29/18 21:49; Admin Dose 12 UNIT; Start 06/17/18 at 20:00 Guaifenesin/ Codeine Phosphate (Robitussin Ac Liquid Cup) 5 ml Q4H PRN PO cough Last administered on 06/18/18 20:25; Admin Dose 5 ML; Start 06/18/18 at 12:00 Rifampin (Rifampin) 600 mg DAILY PO Last administered on 06/30/18 08:36; Admin Dose 600 MG; Start 06/20/18 at 14:30 Multi-Ingredient Ointment (Eucerin Cream) 1 applic BID TOP Last administered on 06/30/18 08:37; Admin Dose 1 APPLIC; Start 06/24/18 at 10:00 Glimepiride (Amaryl) 4 mg QHS PO Last administered on 06/29/18 21:44; Admin Dose 4 MG; Start 06/25/18 at 21:00 Glimepiride (Amaryl) 2 mg AC BREAKFAST PO Last administered on 06/30/18 06:4 5; Admin Dose 2 MG; Start 06/26/18 at 07:00 Vancomycin HCl (Vanco Iv Per Pharmacy) VANCOMYCIN PER PHARMACY PER PROTOCOL XX ; Start 06/28/18 at 16:00 Vancomycin HCl 250 ml @ 125 mls/hr Q8H IVPB Last administered on 06/30/18 08:37; Admin Dose 125 MLS/HR; Start 06/28/18 at 17:00 IV Flush (NS 10 ml) 10 ml PRN PRN IV FLUSH LINE; Start 06/28/18 at 18:30 Magnesium Citrate (Citroma) 300 ml DAILY PRN PO constipation Last administered on 06/29/18 16:25; Admin Dose 300 ML; Start 06/29/18 at 15:00 Zolpidem Tartrate (Ambien) 10 mg HS PRN PO insomnia Last administered on 06/29/18at 21:55; Admin Dose 10 MG; Start 06/29/18 at 17:00 Assessment/Plan Hospital Course (Demo Recall) 1. MRSA bacteremia, with a possible vegetation on tricuspid valve on the transesophageal echocardiogram 2. Pneumonia 3. Status post DKA 4. Diabetes 5. Anemia 6. Homelessness Recommendations: Diabetic management as per internal medicine and endocrine websphere consultant. Antibiotic management as per infectious disease recommendations. Okay to DC telemetry from cardiac standpoint thank you for this referral. We will continue to follow along with you as needed ABDI JAY MD [facility] ABDI JAY MD Jun 30, 2018 18:29
--- NOTE | 2018-06-30 19:55 | CONS ---
Assessment/Plan Assessment/Plan Hospital Course (Demo Recall) 1300 No acute events, looks comfortable, no fevers AFB smears negative 3 sets, cocci neg Microbiology: Blood culture on June 08 grew MRSA, repeat blood cultures negative, sputum culture on June 16 grew Talia albicans and MRSA. Serology for HIV negative Antimicrobials: Rifampin Vanco Physical examination: Well-developed middle-aged woman who is alert in no distress. Head atraumatic normocephalic sclera nonicteric. Neck is supple chest rise symmetrical breath sounds diminished bases. Heart S1-S2. Abdomen soft bowel sounds present. Extremities without cyanosis. Assessment: 1. S/p sepsis 2. 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 Necrotizing MRSA pneumonia with areas of cavitation per CT ?septic emboli 4. Homelessness 5. Poorly controlled diabetes 6. Meth amphetamine abuse Plan: Remains stable, continue IV Vanco for 6 weeks, pending dc arrangements, pt is not a candidate to be dc with PICC, needs placement Consultation Date/Type/Reason Admit Date/Time Jun 08, 2018 at 23:53 Initial Consult Date Type of Consult id Requesting Provider: HAYDEE RAYO Date/Time of Note DATE: 06/30/18 TIME: 19:53 Exam/Review of Systems Exam Vitals Vital Signs Date Temp Pulse Resp B/P (MAP) Pulse Ox O2 O2 Flow FiO2 Time Delivery Rate 06/30/18 98.1 109 21 116/76 98 19:37 (89) 06/29/18 Room Air 15:15 Intake and Output 06/29/18 06/29/18 06/30/18 1515:00 23:00 07:00 IntakeIntake Total 250 ml 1200 ml BalanceBalance 250 ml 1200 ml Results Result Diagram: 06/30/18 0529 06/30/18 0529 Results 24hrs Laboratory Tests Test 06/29/18 21:43 06/30/18 01:52 06/30/18 05:29 06/30/18 08:33 Bedside Glucose 181 95 204 White Blood Count 6.1 Red Blood Count 4.17 L Hemoglobin 11.6 L Hematocrit 37.3 Mean Corpuscular 89.4 Volume Mean Corpuscular 27.8 L Hemoglobin Mean Corpuscular 31.1 L Hemoglobin Concent Red Cell 17.2 H Distribution Width Platelet Count 442 H Mean Platelet Volume 9.8 Immature 0.200 Granulocytes % Neutrophils % 40.7 Lymphocytes % 48.2 Monocytes % 6.0 Eosinophils % 4.1 Basophils % 0.8 Nucleated Red Blood 0.0 Cells % Immature 0.010 Granulocytes # Neutrophils # 2.5 Lymphocytes # 3.0 H Monocytes # 0.4 Eosinophils # 0.3 Basophils # 0.1 Nucleated Red Blood 0.0 Cells # Sodium Level 138 Potassium Level 3.9 Chloride Level 107 Carbon Dioxide Level 28 Anion Gap 3 L Blood Urea Nitrogen 6 L Creatinine 0.30 L Est Glomerular > 60 Filtrat Rate mL/min Glucose Level 59 #L Calcium Level 8.8 Phosphorus Level 3.1 Magnesium Level 2.1 Test 06/30/18 12:03 06/30/18 15:48 06/30/18 17:37 Bedside Glucose 155 171 Vancomycin Level 12.7 Trough Medications Medication Current Medications Ondansetron HCl (Zofran Inj) 4 mg Q6H PRN IV NAUSEA AND/OR VOMITING Last administered on 06/30/18 08:51; Admin Dose 4 MG; Start 06/09/18 at 00:30 Ipratropium [place] (Atrovent 0.02% (Neb)) 0.5 mg Q2H RESP THERAPY PRN NEB SHORTNESS OF BREATH Last administered on 06/14/18 21:38; Admin Dose 0.5 MG; Start 06/09/18 at 00:30 Acetaminophen (Tylenol Liquid) 650 mg Q6H PRN PO PAIN LEVEL 1-3 OR FEVER Last administered on 06/29/18 05:58; Admin Dose 650 MG; Start 06/09/18 at 00:30 Docusate Sodium (Colace) 100 mg Q12H PRN PO CONSTIPATION Last administered on 06/29/18 05:59; Admin Dose 100 MG; Start 06/09/18 at 00:30 Bisacodyl (Dulcolax) 5 mg DAILY PRN PO CONSTIPATION Last administered on 06/29/18 05:58; Admin Dose 5 MG; Start 06/09/18 at 00:30 Pantoprazole (Protonix Tab) 40 mg DAILY@06 PO Last administered on 06/30/18 06:45; Admin Dose 40 MG; Start 06/09/18 at 06:00 Diagnostic Test (Pha) (Accu-Chek) 1 ea 02 XX Last administered on 06/26/18 01:56; Admin Dose 1 EA; Start 06/10/18 at 02:00 Insulin Aspart (Novolog Insulin Pen) NOVOLOG *MILD* ALGORITHM WITH MEALS BEDTIME SC Last administered on 06/30/18 18:38; Admin Dose 2 UNIT; Start 06/09/18 at 18:00 Miscellaneous Information 1 ea NOTE XX ; Start 06/09/18 at 14:30 Glucose (Glutose) 15 gm Q15M PRN PO DECREASED GLUCOSE; Start 06/09/18 at 14:30 Glucose (Glutose) 22.5 gm Q15M PRN PO DECREASED GLUCOSE; Start 06/09/18 at 14:30 Dextrose (D50w Syringe) 25 ml Q15M PRN IV DECREASED GLUCOSE Last administered on 06/29/18at 12:11; Admin Dose 25 ML; Start 06/09/18 at 14:30 Dextrose (D50w Syringe) 50 ml Q15M PRN IV DECREASED GLUCOSE; Start 06/09/18 at 14:30 Glucagon (Glucagen) 1 mg Q15M PRN IM DECREASED GLUCOSE; Start 06/09/18 at 14:30 Glucose (Glutose) 15 gm Q15M PRN BUCCAL DECREASED GLUCOSE; Start 06/09/18 at 14:30 Ferrous Sulfate (Ferrous Sulfate (Ec)) 325 mg DAILY PO Last administered on 06/30/18 08:36; Admin Dose 325 MG; Start 06/13/18 at 10:30; Stop 08/12/18 at 10:29 Levalbuterol (Xopenex Neb) 1.25 mg Q6H RESP THERAPY PRN HHN sob/wheezing Last administered on 06/14/18at 21:38; Admin Dose 1.25 MG; Start 06/14/18 at 09:00 Guaifenesin/ Dextromethorphan (Mucinex Dm) 1 tab BID PO Last administered on 06/30/18 08:36; Admin Dose 1 TAB; Start 06/14/18 at 09:30 Metformin HCl (Glucophage) 1,000 mg BID WITH MEALS PO Last administered on 06/30/18at 18:37; Admin Dose 1,000 MG; Start 06/16/18 at 18:00 Ascorbic Acid (Vitamin C) 500 mg DAILY PO Last administered on 06/30/18 08:36; Admin Dose 500 MG; Start 06/17/18 at 09:00; Stop 08/16/18 at 08:59 Insulin Human NPH (Humulin N) 12 unit DAILY@20 SC Last administered on 06/29/18 21:49; Admin Dose 12 UNIT; Start 06/17/18 at 20:00 Guaifenesin/ Codeine Phosphate (Robitussin Ac Liquid Cup) 5 ml Q4H PRN PO cough Last administered on 06/18/18 20:25; Admin Dose 5 ML; Start 06/18/18 at 12:00 Rifampin (Rifampin) 600 mg DAILY PO Last administered on 06/30/18 08:36; Admin Dose 600 MG; Start 06/20/18 at 14:30 Multi-Ingredient Ointment (Eucerin Cream) 1 applic BID TOP Last administered on 06/30/18 08:37; Admin Dose 1 APPLIC; Start 06/24/18 at 10:00 Glimepiride (Amaryl) 4 mg QHS PO Last administered on 06/29/18 21:44; Admin Dose 4 MG; Start 06/25/18 at 21:00 Glimepiride (Amaryl) 2 mg AC BREAKFAST PO Last administered on 06/30/18 06:45; Admin Dose 2 MG; Start 06/26/18 at 07:00 Vancomycin HCl (Vanco Iv Per Pharmacy) VANCOMYCIN PER PHARMACY PER PROTOCOL XX ; Start 06/28/18 at 16:00 Vancomycin HCl 250 ml @ 125 mls/hr Q8H IVPB Last administered on 06/30/18 17:00; Admin Dose 125 MLS/HR; Start 06/28/18 at 17:00 IV Flush (NS 10 ml) 10 ml PRN PRN IV FLUSH LINE; Start 06/28/18 at 18:30 Magnesium Citrate (Citroma) 300 ml DAILY PRN PO constipation Last administered on 06/29/18 16:25; Admin Dose 300 ML; Start 06/29/18 at 15:00 Zolpidem Tartrate (Ambien) 10 mg HS PRN PO insomnia Last administered on 06/29/18 21:55; Admin Dose 10 MG; Start 06/29/18 at 17:00 JOSE GOVEA NP Jun 30, 2018 19:55
[2018-06-30] MEDS: NPH, HUMAN INSULIN ISOPHANE 3ML VIAL SC SCH (20:00)
[2018-06-30] MEDS: GLIMEPIRIDE 4 MG TAB PO SCH (20:57)
[2018-07-01] VITALS (7 sets, daily range): BP systolic 109–119; BP diastolic 63–78; PULSE 85–107; RESP 18–19
[2018-07-01] MEDS: VANCOMYCIN 1 GM 250 ML IVPB SCH ×3 (01:31→18:17)
[2018-07-01] MEDS: ACCU-CHEK XX SCH (02:00)
[2018-07-01] MEDS: PANTOPRAZOLE (EC) 40 MG TAB PO SCH (06:21)
[2018-07-01] MEDS: GLIMEPIRIDE 2 MG TAB PO SCH (06:21)
[2018-07-01] MEDS: INSULIN ASPART [NOVOLOG] 3 ML PEN SC SCH ×4 (08:00→21:00)
[2018-07-01] MEDS: metFORMIN 500 MG TAB PO SCH ×2 (08:23→17:26)
[2018-07-01] MEDS: GUAIFENESIN/DM (SR) TAB PO SCH ×2 (08:24→21:22)
[2018-07-01] MEDS: EUCERIN 113 GM CR TOP SCH ×2 (08:24→21:28)
[2018-07-01] MEDS: RIFAMPIN 300 MG CAP PO SCH (08:24)
[2018-07-01] MEDS: FERROUS SULFATE (EC) 325 MG TAB PO SCH (08:24)
[2018-07-01] MEDS: ASCORBIC ACID 500 MG TAB PO SCH (08:24)
[2018-07-01] MEDS: ONDANSETRON 4 MG INJ IV PRN (08:30)
--- NOTE | 2018-07-01 10:42 | CONS ---
Consult Date/Type/Reason Admit Date/Time Jun 08, 2018 at 23:53 Initial Consult Date Type of Consult Pulmonary Requesting Provider: HAYDEE RAYO Date/Time of Note DATE: 07/01/18 TIME: 10:41 Subjective Patient comfortable this morning no respiratory distress. Objective Vital Signs Date Temp Pulse Resp B/P (MAP) Pulse Ox O2 O2 Flow FiO2 Time Delivery Rate 07/01/18 92 08:00 07/01/18 98.4 18 119/78 98 07:05 (92) 06/29/18 Room Air 15:15 Intake and Output 06/30/18 06/30/18 07/01/18 1515:00 23:00 07:00 IntakeIntake Total 950 ml 1450 ml BalanceBalance 950 ml 1450 ml Exam GENERAL: Elderly lady comfortable at rest VITAL SIGNS: per chart NECK: Supple. No JVD or lymphadenopathy. CARDIAC EXAM: S1, S2. No added sounds or murmurs. CHEST: clear bilaterally, No added sounds, rales or wheezes ABDOMEN: Soft, nontender. No guarding or rebound. EXTREMITIES: No cyanosis, clubbing or edema. NEUROLOGIC: Generalized weakness. No focal deficits. Vent Setting Fraction of Inspired Oxygen pe: 21 Results/Medications Result Diagram: 06/30/18 0529 06/30/18 0529 Results 24 hrs Laboratory Tests Test 06/30/18 12:03 06/30/18 15:48 06/30/18 17:37 06/30/18 20:53 Bedside Glucose 155 171 108 Vancomycin Level 12.7 Trough Test 07/01/18 08:22 Bedside Glucose 86 Medications Current Medications Ondansetron HCl (Zofran Inj) 4 mg Q6H PRN IV NAUSEA AND/OR VOMITING Last administered on 07/01/18at 08:30; Admin Dose 4 MG; Start 06/09/18 at 00:30 Ipratropium [place] (Atrovent 0.02% (Neb)) 0.5 mg Q2H RESP THERAPY PRN NEB SHORTNESS OF BREATH Last administered on 06/14/18at 21:38; Admin Dose 0.5 MG; Start 06/09/18 at 00:30 Acetaminophen (Tylenol Liquid) 650 mg Q6H PRN PO PAIN LEVEL 1-3 OR FEVER Last administered on 06/29/18at 05:58; Admin Dose 650 MG; Start 06/09/18 at 00:30 Docusate Sodium (Colace) 100 mg Q12H PRN PO CONSTIPATION Last administered on 06/29/18 05:59; Admin Dose 100 MG; Start 06/09/18 at 00:30 Bisacodyl (Dulcolax) 5 mg DAILY PRN PO CONSTIPATION Last administered on 06/29/18 05:58; Admin Dose 5 MG; Start 06/09/18 at 00:30 Pantoprazole (Protonix Tab) 40 mg DAILY@06 PO Last administered on 07/01/18at 06:21; Admin Dose 40 MG; Start 06/09/18 at 06:00 Diagnostic Test (Pha) (Accu-Chek) 1 ea 02 XX Last administered on 07/01/18at 02:00; Admin Dose 1 EA; Start 06/10/18 at 02:00 Insulin Aspart (Novolog Insulin Pen) NOVOLOG *MILD* ALGORITHM WITH MEALS BEDTIME SC Last administered on 06/30/18at 18:38; Admin Dose 2 UNIT; Start 06/09/18 at 18:00 Miscellaneous Information 1 ea NOTE XX ; Start 06/09/18 at 14:30 Glucose (Glutose) 15 gm Q15M PRN PO DECREASED GLUCOSE; Start 06/09/18 at 14:30 Glucose (Glutose) 22.5 gm Q15M PRN PO DECREASED GLUCOSE; Start 06/09/18 at 1 4:30 Dextrose (D50w Syringe) 25 ml Q15M PRN IV DECREASED GLUCOSE Last administered on 06/29/18at 12:11; Admin Dose 25 ML; Start 06/09/18 at 14:30 Dextrose (D50w Syringe) 50 ml Q15M PRN IV DECREASED GLUCOSE; Start 06/09/18 at 14:30 Glucagon (Glucagen) 1 mg Q15M PRN IM DECREASED GLUCOSE; Start 06/09/18 at 14:30 Glucose (Glutose) 15 gm Q15M PRN BUCCAL DECREASED GLUCOSE; Start 06/09/18 at 14:30 Ferrous Sulfate (Ferrous Sulfate (Ec)) 325 mg DAILY PO Last administered on 07/01/18at 08:24; Admin Dose 325 MG; Start 06/13/18 at 10:30; Stop 08/12/18 at 10:29 Levalbuterol (Xopenex Neb) 1.25 mg Q6H RESP THERAPY PRN HHN sob/wheezing Last administered on 06/14/18 21:38; Admin Dose 1.25 MG; Start 06/14/18 at 09:00 Guaifenesin/ Dextromethorphan (Mucinex Dm) 1 tab BID PO Last administered on 07/01/18 08:24; Admin Dose 1 TAB; Start 06/14/18 at 09:30 Metformin HCl (Glucophage) 1,000 mg BID WITH MEALS PO Last administered on 07/01/18 08:23; Admin Dose 1,000 MG; Start 06/16/18 at 18:00 Ascorbic Acid (Vitamin C) 500 mg DAILY PO Last administered on 07/01/18 08:24; Admin Dose 500 MG; Start 06/17/18 at 09:00; Stop 08/16/18 at 08:59 Insulin Human NPH (Humulin N) 12 unit DAILY@20 SC Last administered on 06/29/18 21:49; Admin Dose 12 UNIT; Start 06/17/18 at 20:00 Guaifenesin/ Codeine Phosphate (Robitussin Ac Liquid Cup) 5 ml Q4H PRN PO cough Last administered on 06/18/18 20:25; Admin Dose 5 ML; Start 06/18/18 at 12:00 Rifampin (Rifampin) 600 mg DAILY PO Last administered on 07/01/18 08:24; Admin Dose 600 MG; Start 06/20/18 at 14:30 Multi-Ingredient Ointment (Eucerin Cream) 1 applic BID TOP Last administered on 07/01/18 08:24; Admin Dose 1 APPLIC; Start 06/24/18 at 10:00 Glimepiride (Amaryl) 4 mg QHS PO Last administered on 06/30/18 20:57; Admin Dose 4 MG; Start 06/25/18 at 21:00 Glimepiride (Amaryl) 2 mg AC BREAKFAST PO Last administered on 07/01/18 06:21; Admin Dose 2 MG; Start 06/26/18 at 07:00 Vancomycin HCl (Vanco Iv Per Pharmacy) VANCOMYCIN PER PHARMACY PER PROTOCOL XX ; Start 06/28/18 at 16:00 Vancomycin HCl 250 ml @ 125 mls/hr Q8H IVPB Last administered on 07/01/18 08:24; Admin Dose 125 MLS/HR; Start 06/28/18 at 17:00 IV Flush (NS 10 ml) 10 ml PRN PRN IV FLUSH LINE; Start 06/28/18 at 18:30 Magnesium Citrate (Citroma) 300 ml DAILY PRN PO constipation Last administered on 06/29/18at 16:25; Admin Dose 300 ML; Start 06/29/18 at 15:00 Zolpidem Tartrate (Ambien) 10 mg HS PRN PO insomnia Last administered on 06/29/18at 21:55; Admin Dose 10 MG; Start 06/29/18 at 17:00 Miscellaneous Information (*Rx Drug Level Order Reminder*) VANCO TROUGH ON @ 800 0800 ONCE XX ; Start 07/02/18 at 08:00; Stop 07/02/18 at 08:01 Assessment/Plan Hospital Course (Demo Recall) IMP: 1. Multifocal airspace opacities--> now evolution of cavitary nodules--findings concerning for septic pulmonary emboli. 2. BITA findings noted. Questionable vegetation on tricuspid valve. RECS: 1. Abx per ID, chest x-ray shows improvement left upper lobe. 2. Await QuantiFERON gold. 3. Consider p.o. management of possible endocarditis if no evidence of ongoing bacteremia. DC planning. ALICIA HAZEL MD, [facility] Jul 01, 2018 10:42
--- NOTE | 2018-07-01 13:59 | PN ---
Date/Time of Note Date/Time of Note DATE: 07/01/18 TIME: 13:52 Objective Vitals Vital Signs Date Temp Pulse Resp B/P (MAP) Pulse Ox O2 O2 Flow FiO2 Time Delivery Rate 07/01/18 98.2 107 18 115/69 98 11:04 (84) 06/29/18 Room Air 15:15 Intake and Output 06/30/18 06/30/18 07/01/18 1515:00 23:00 07:00 IntakeIntake Total 950 ml 1450 ml BalanceBalance 950 ml 1450 ml Results Result Diagram: 06/30/1852806/30/18528 Medications Medications Current Medications Ondansetron HCl (Zofran Inj) 4 mg Q6H PRN IV NAUSEA AND/OR VOMITING Last administered on 07/01/18 08:30; Admin Dose 4 MG; Start 06/09/18 at 00:30 Ipratropium [place] (Atrovent 0.02% (Neb)) 0.5 mg Q2H RESP THERAPY PRN NEB SHORTNESS OF BREATH Last administered on 06/14/18 21:38; Admin Dose 0.5 MG; Start 06/09/18 at 00:30 Acetaminophen (Tylenol Liquid) 650 mg Q6H PRN PO PAIN LEVEL 1-3 OR FEVER Last administered on 06/29/18 05:58; Admin Dose 650 MG; Start 06/09/18 at 00:30 Docusate Sodium (Colace) 100 mg Q12H PRN PO CONSTIPATION Last administered on 06/29/18 05:59; Admin Dose 100 MG; Start 06/09/18 at 00:30 Bisacodyl (Dulcolax) 5 mg DAILY PRN PO CONSTIPATION Last administered on 06/29/18 05:58; Admin Dose 5 MG; Start 06/09/18 at 00:30 Pantoprazole (Protonix Tab) 40 mg DAILY@06 PO Last administered on 07/01/18 06:21; Admin Dose 40 MG; Start 06/09/18 at 06:00 Diagnostic Test (Pha) (Accu-Chek) 1 ea 02 XX Last administered on 07/01/18 02:00; Admin Dose 1 EA; Start 06/10/18 at 02:00 Insulin Aspart (Novolog Insulin Pen) NOVOLOG *MILD* ALGORITHM WITH MEALS BEDTIME SC Last administered on 06/30/18 18:38; Admin Dose 2 UNIT; Start 06/09/18 at 18:00 Miscellaneous Information 1 ea NOTE XX ; Start 06/09/18 at 14:30 Glucose (Glutose) 15 gm Q15M PRN PO DECREASED GLUCOSE; Start 06/09/18 at 14:30 Glucose (Glutose) 22.5 gm Q15M PRN PO DECREASED GLUCOSE; Start 06/09/18 at 14:30 Dextrose (D50w Syringe) 25 ml Q15M PRN IV DECREASED GLUCOSE Last administered on 06/29/18at 12:11; Admin Dose 25 ML; Start 06/09/18 at 14:30 Dextrose (D50w Syringe) 50 ml Q15M PRN IV DECREASED GLUCOSE; Start 06/09/18 at 14:30 Glucagon (Glucagen) 1 mg Q15M PRN IM DECREASED GLUCOSE; Start 06/09/18 at 14:30 Glucose (Glutose) 15 gm Q15M PRN BUCCAL DECREASED GLUCOSE; Start 06/09/18 at 14:30 Ferrous Sulfate (Ferrous Sulfate (Ec)) 325 mg DAILY PO Last administered on 07/01/18 08:24; Admin Dose 325 MG; Start 06/13/18 at 10:30; Stop 08/12/18 at 10:29 Levalbuterol (Xopenex Neb) 1.25 mg Q6H RESP THERAPY PRN HHN sob/wheezing Last administered on 06/14/18 21:38; Admin Dose 1.25 MG; Start 06/14/18 at 09:00 Guaifenesin/ Dextromethorphan (Mucinex Dm) 1 tab BID PO Last administered on 07/01/18 08:24; Admin Dose 1 TAB; Start 06/14/18 at 09:30 Metformin HCl (Glucophage) 1,000 mg BID WITH MEALS PO Last administered on 07/01/18 08:23; Admin Dose 1,000 MG; Start 06/16/18 at 18:00 Ascorbic Acid (Vitamin C) 500 mg DAILY PO Last administered on 07/01/18 08:24; Admin Dose 500 MG; Start 06/17/18 at 09:00; Stop 08/16/18 at 08:59 Insulin Human NPH (Humulin N) 12 unit DAILY@20 SC Last administered on 06/29/18 21:49; Admin Dose 12 UNIT; Start 06/17/18 at 20:00 Guaifenesin/ Codeine Phosphate (Robitussin Ac Liquid Cup) 5 ml Q4H PRN PO cough Last administered on 06/18/18 20:25; Admin Dose 5 ML; Start 06/18/18 at 12:00 Rifampin (Rifampin) 600 mg DAILY PO Last administered on 07/01/18 08:24; Admin Dose 600 MG; Start 06/20/18 at 14:30 Multi-Ingredient Ointment (Eucerin Cream) 1 applic BID TOP Last administered on 07/01/18 08:24; Admin Dose 1 APPLIC; Start 06/24/18 at 10:00 Glimepiride (Amaryl) 4 mg QHS PO Last administered on 06/30/18 20:57; Admin Dose 4 MG; Start 06/25/18 at 21:00 Glimepiride (Amaryl) 2 mg AC BREAKFAST PO Last administered on 07/01/18 06:21; Admin Dose 2 MG; Start 06/26/18 at 07:00 Vancomycin HCl (Vanco Iv Per Pharmacy) VANCOMYCIN PER PHARMACY PER PROTOCOL XX ; Start 06/28/18 at 16:00 Vancomycin HCl 250 ml @ 125 mls/hr Q8H IVPB Last administered on 07/01/18 08:24; Admin Dose 125 MLS/HR; Start 06/28/18 at 17:00 IV Flush (NS 10 ml) 10 ml PRN PRN IV FLUSH LINE; Start 06/28/18 at 18:30 Magnesium Citrate (Citroma) 300 ml DAILY PRN PO constipation Last administered on 06/29/18 16:25; Admin Dose 300 ML; Start 06/29/18 at 15:00 Zolpidem Tartrate (Ambien) 10 mg HS PRN PO insomnia Last administered on 06/29/18 21:55; Admin Dose 10 MG; Start 06/29/18 at 17:00 Miscellaneous Information (*Rx Drug Level Order Reminder*) VANCO TROUGH ON @ 800 0800 ONCE XX ; Start 07/02/18 at 08:00; Stop 07/02/18 at 08:01 VTE Prophylaxis Risk score (from Ns)>0 risk: 2 SCD applied (from [facility] [place] No SCD contraindication: other Lines/Catheters IV Catheter Type: Garcia in Place: No Assessment/Plan Hospital Course Subjective doing okay, no acute complaints Objective Physical exam General: Patient is laying in bed and answers questions appropriately Mentation: Patient is alert and oriented 4, Head: Normocephalic atraumatic Eyes: EOMI, pupils reactive to light Neck: Supple, nontender, midline Respiratory: Coarse to auscultation bilaterally Cardiovascular: regular rate, no obvious murmurs Gastrointestinal: non-tender to palpation, bowel sounds heard. Neurological: Moves all extremities spontaneously Skin: No new skin lesions Assessment/Plan Possible Endocarditis -found on BITA -IV abx 6 weeks per ID, however this may impose an issue as patient has a history of drug use, patient denies IV drug use however will need to move forward cautiously Abdominal pain, resolved -Stat CT abdomen pelvis ordered found to have large amounts of stool -Bowel regimen MRSA bacteremia - Repeat blood culture negative. Remains afebrile with nl WBC. - ID on board and appreciate recommendations. Continue on current antibiotics Tachycardia - most likely secondary to pulmonary process Poorly controlled diabetes - A1c noted - continues to fluctuate based on diet compliance - Admits to eating outside food since current diet is very bland. Discussed need to follow low sugar, low carb diet - Endocrinology on board and appreciate recommendations. Continue on current insulin and glimepiride. Extensive bilateral multilobar pneumonia - Patient found with MRSA in sputum and CT scan showing cavitating lesions but improvement in bilateral infiltrate - Pulm on board and continue current treatment. Cocci studies. After review of recent CT scan concern for septic emboli. - Repeat CT scan performed this am showing "Multifocal bilateral areas of pneumonia are again present and have diminished in overall size however there is interval development of multiple foci of lucencies within the areas of consolidation suggestive for bronchiectasis or developing small cavitary lesions." - ID recommendations appreciated Homelessness - SW on board - patient states she plans to go to rehab following discharge History of meth abuse - Patient states last use was 2 weeks prior to admission. Counseled on cessation. Tobacco use - Cessation advised. Iron Deficient anemia. - Continue oral iron. - H&H stable. Mild asthma. - Currently stable - nebs PRN Disposition -We will need infectious disease and pulmonology to finish workup, ultimately patient will need placement for 6 weeks of IV antibiotics. HAYDEE RAYO Jul 01, 2018 13:59
--- NOTE | 2018-07-01 15:58 | CONS ---
Consultation Date/Type/Reason Admit Date/Time Jun 08, 2018 at 23:53 Initial Consult Date SUBJECTIVE: No acute events over night. No fevers. VS: stable T: 98.2 LABS: reviewed. AFB smears negative 3 sets, cocci neg Microbiology: Blood culture on June 08 grew MRSA, repeat blood cultures negative, sputum culture on June 16 grew Talia albicans and MRSA. Serology for HIV negative Antimicrobials: Rifampin and Vanco Physical examination: GEN: Well-developed, middle-aged woman, who is alert in no distress. HENT: Head atraumatic normocephalic, sclera nonicteric. Neck is supple PULM: chest rise symmetrical, breath sounds diminished bases. Heart: S1-S2. Abdomen: soft bowel sounds present. Extremities without cyanosis. Assessment: 1. S/p sepsis 2. 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 Necrotizing MRSA pneumonia with areas of cavitation per CT ?septic emboli 4. Homelessness 5. Poorly controlled diabetes 6. Meth amphetamine abuse Plan: Pt remains stable. Will continue IV Vanco for 6 weeks. Pending dc arrangements. Pt is not a candidate to be dc with PICC, needs placement Requesting Provider: HAYDEE RAYO Date/Time of Note DATE: 07/01/18 TIME: 15:55 Exam/Review of Systems Exam Vitals Vital Signs Date Temp Pulse Resp B/P (MAP) Pulse Ox O2 O2 Flow FiO2 Time Delivery Rate 07/01/18 98.2 107 18 115/69 98 11:04 (84) 06/29/18 Room Air 15:15 Intake and Output 06/30/18 06/30/18 07/01/18 1515:00 23:00 07:00 IntakeIntake Total 950 ml 1450 ml BalanceBalance 950 ml 1450 ml Results Result Diagram: 06/30/18 0529 06/30/18 0529 Results 24hrs Laboratory Tests Test 06/30/18 17:37 06/30/18 20:53 07/01/18 08:22 07/01/18 12:09 Bedside Glucose 171 108 86 100 Medications Medication Current Medications Ondansetron HCl (Zofran Inj) 4 mg Q6H PRN IV NAUSEA AND/OR VOMITING Last administered on 07/01/18at 08:30; Admin Dose 4 MG; Start 06/09/18 at 00:30 Ipratropium [place] (Atrovent 0.02% (Neb)) 0.5 mg Q2H RESP THERAPY PRN NEB SHORTNESS OF BREATH Last administered on 06/14/18 21:38; Admin Dose 0.5 MG; Start 06/09/18 at 00:30 Acetaminophen (Tylenol Liquid) 650 mg Q6H PRN PO PAIN LEVEL 1-3 OR FEVER Last administered on 06/29/18 05:58; Admin Dose 650 MG; Start 06/09/18 at 00:30 Docusate Sodium (Colace) 100 mg Q12H PRN PO CONSTIPATION Last administered on 06/29/18 05:59; Admin Dose 100 MG; Start 06/09/18 at 00:30 Bisacodyl (Dulcolax) 5 mg DAILY PRN PO CONSTIPATION Last administered on 06/29/18 05:58; Admin Dose 5 MG; Start 06/09/18 at 00:30 Pantoprazole (Protonix Tab) 40 mg DAILY@06 PO Last administered on 07/01/18 06:21; Admin Dose 40 MG; Start 06/09/18 at 06:00 Diagnostic Test (Pha) (Accu-Chek) 1 ea 02 XX Last administered on 07/01/18at 02:00; Admin Dose 1 EA; Start 06/10/18 at 02:00 Insulin Aspart (Novolog Insulin Pen) NOVOLOG *MILD* ALGORITHM WITH MEALS BEDTIME SC Last administered on 06/30/18 18:38; Admin Dose 2 UNIT; Start 06/09/18 at 18:00 Miscellaneous Information 1 ea NOTE XX ; Start 06/09/18 at 14:30 Glucose (Glutose) 15 gm Q15M PRN PO DECREASED GLUCOSE; Start 06/09/18 at 14:30 Glucose (Glutose) 22.5 gm Q15M PRN PO DECREASED GLUCOSE; Start 06/09/18 at 14:30 Dextrose (D50w Syringe) 25 ml Q15M PRN IV DECREASED GLUCOSE Last administered on 06/29/18at 12:11; Admin Dose 25 ML; Start 06/09/18 at 14:30 Dextrose (D50w Syringe) 50 ml Q15M PRN IV DECREASED GLUCOSE; Start 06/09/18 at 14:30 Glucagon (Glucagen) 1 mg Q15M PRN IM DECREASED GLUCOSE; Start 06/09/18 at 14:30 Glucose (Glutose) 15 gm Q15M PRN BUCCAL DECREASED GLUCOSE; Start 06/09/18 at 14:30 Ferrous Sulfate (Ferrous Sulfate (Ec)) 325 mg DAILY PO Last administered on 07/01/18 08:24; Admin Dose 325 MG; Start 06/13/18 at 10:30; Stop 08/12/18 at 10:29 Levalbuterol (Xopenex Neb) 1.25 mg Q6H RESP THERAPY PRN HHN sob/wheezing Last administered on 06/14/18 21:38; Admin Dose 1.25 MG; Start 06/14/18 at 09:00 Guaifenesin/ Dextromethorphan (Mucinex Dm) 1 tab BID PO Last administered on 07/01/18 08:24; Admin Dose 1 TAB; Start 06/14/18 at 09:30 Metformin HCl (Glucophage) 1,000 mg BID WITH MEALS PO Last administered on 07/01/18 08:23; Admin Dose 1,000 MG; Start 06/16/18 at 18:00 Ascorbic Acid (Vitamin C) 500 mg DAILY PO Last administered on 07/01/18 08:24; Admin Dose 500 MG; Start 06/17/18 at 09:00; Stop 08/16/18 at 08:59 Insulin Human NPH (Humulin N) 12 unit DAILY@20 SC Last administered on 06/29/18 at 21:49; Admin Dose 12 UNIT; Start 06/17/18 at 20:00 Guaifenesin/ Codeine Phosphate (Robitussin Ac Liquid Cup) 5 ml Q4H PRN PO cough Last administered on 06/18/18 20:25; Admin Dose 5 ML; Start 06/18/18 at 12:00 Rifampin (Rifampin) 600 mg DAILY PO Last administered on 07/01/18 08:24; Admin Dose 600 MG; Start 06/20/18 at 14:30 Multi-Ingredient Ointment (Eucerin Cream) 1 applic BID TOP Last administered on 07/01/18 08:24; Admin Dose 1 APPLIC; Start 06/24/18 at 10:00 Glimepiride (Amaryl) 4 mg QHS PO Last administered on 06/30/18 20:57; Admin Dose 4 MG; Start 06/25/18 at 21:00 Glimepiride (Amaryl) 2 mg AC BREAKFAST PO Last administered on 07/01/18at 06:21; Admin Dose 2 MG; Start 06/26/18 at 07:00 Vancomycin HCl (Vanco Iv Per Pharmacy) VANCOMYCIN PER PHARMACY PER PROTOCOL XX ; Start 06/28/18 at 16:00 Vancomycin HCl 250 ml @ 125 mls/hr Q8H IVPB Last administered on 07/01/18at 08:24; Admin Dose 125 MLS/HR; Start 06/28/18 at 17:00 IV Flush (NS 10 ml) 10 ml PRN PRN IV FLUSH LINE; Start 06/28/18 at 18:30 Magnesium Citrate (Citroma) 300 ml DAILY PRN PO constipation Last administered on 06/29/18at 16:25; Admin Dose 300 ML; Start 06/29/18 at 15:00 Zolpidem Tartrate (Ambien) 10 mg HS PRN PO insomnia Last administered on 06/29/18at 21:55; Admin Dose 10 MG; Start 06/29/18 at 17:00 Miscellaneous Information (*Rx Drug Level Order Reminder*) VANCO TROUGH ON @ 800 0800 ONCE XX ; Start 07/02/18 at 08:00; Stop 07/02/18 at 08:01 HAYLEE MACIAS Jul 01, 2018 15:58
[2018-07-01] MEDS: NPH, HUMAN INSULIN ISOPHANE 3ML VIAL SC SCH (20:00)
[2018-07-01] MEDS: GLIMEPIRIDE 4 MG TAB PO SCH (21:23)
[2018-07-01] MEDS: MAGNESIUM CITRATE 300 ML BTL PO PRN (23:15)
[2018-07-02] MEDS: VANCOMYCIN 1 GM 250 ML IVPB SCH (00:51)
[2018-07-02] MEDS: ACCU-CHEK XX SCH (02:00)
[2018-07-02 02:30] VITALS: BP 106/59; PULSE 97; RESP 18
[2018-07-02] MEDS: PANTOPRAZOLE (EC) 40 MG TAB PO SCH (05:50)
[2018-07-02] MEDS: GLIMEPIRIDE 2 MG TAB PO SCH (07:45)
[2018-07-02] MEDS: INSULIN ASPART [NOVOLOG] 3 ML PEN SC SCH ×4 (07:57→20:31)
[2018-07-02] MEDS: metFORMIN 500 MG TAB PO SCH ×2 (07:58→17:35)
[2018-07-02 08:12] VITALS: BP 102/67; PULSE 87; RESP 18
[2018-07-02] MEDS ORDERED: ALTEPLASE (CATHFLO) 2 MG INJ CATHETER PRN (09:30)
[2018-07-02] MEDS: GUAIFENESIN/DM (SR) TAB PO SCH ×2 (09:59→20:25)
[2018-07-02] MEDS: ASCORBIC ACID 500 MG TAB PO SCH (09:59)
[2018-07-02] MEDS: RIFAMPIN 300 MG CAP PO SCH (09:59)
[2018-07-02] MEDS: EUCERIN 113 GM CR TOP SCH ×2 (10:01→20:32)
[2018-07-02] MEDS: FERROUS SULFATE (EC) 325 MG TAB PO SCH (10:03)
[2018-07-02] MEDS: ONDANSETRON 4 MG INJ IV PRN (10:34)
[2018-07-02] MEDS: VANCOMYCIN HCL 1.25 GM in SOD CHLORIDE 0.9% 250 ML IVPB SCH ×2 (11:10→19:01)
--- NOTE | 2018-07-02 12:57 | CONS ---
Consultation Date/Type/Reason Admit Date/Time Jun 08, 2018 at 23:53 Initial Consult Date SUBJECTIVE: No acute events over night. No fevers. VS: stable T: 98.3 LABS: reviewed. WBC-6.1 AFB smears negative 3 sets, cocci neg Microbiology: Blood culture on June 08 grew MRSA, repeat blood cultures negative, sputum culture on June 16 grew Talia albicans and MRSA. Serology for HIV negative Antimicrobials: Rifampin and Vanco Physical examination: GEN: Well-developed, middle-aged woman, who is alert in no distress. HENT: Head atraumatic normocephalic, sclera nonicteric. Neck is supple PULM: chest rise symmetrical, breath sounds diminished bases. Heart: S1-S2. Abdomen: soft bowel sounds present. Extremities without cyanosis. Assessment: 1. S/p sepsis 2. 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 Necrotizing MRSA pneumonia with areas of cavitation per CT ?septic emboli 4. Homelessness 5. Poorly controlled diabetes 6. Meth amphetamine abuse Plan: Pt remains stable. Will continue IV Vanco for 6 weeks. Pt is not a candidate to be dc with PICC, needs placement Requesting Provider: HAYDEE RAYO Date/Time of Note DATE: 07/02/18 TIME: 12:54 Exam/Review of Systems Exam Vitals Vital Signs Date Temp Pulse Resp B/P (MAP) Pulse Ox O2 O2 Flow FiO2 Time Delivery Rate 07/02/18 98.3 87 18 102/67 96 08:12 (79) 06/29/18 Room Air 15:15 Intake and Output 07/01/18 07/01/18 07/02/18 1515:00 23:00 07:00 IntakeIntake Total 790 ml 670 ml 910 ml BalanceBalance 790 ml 670 ml 910 ml Results Result Diagram: 07/02/18 0824 07/02/18 0824 Results 24hrs Laboratory Tests Test 07/01/18 17:24 07/01/18 21:20 07/02/18 07:55 07/02/18 08:24 Bedside Glucose 162 149 134 White Blood Count 6.1 Red Blood Count 4.05 L Hemoglobin 11.5 L Hematocrit 36.9 L Mean Corpuscular 91.1 Volume Mean Corpuscular 28.4 L Hemoglobin Mean Corpuscular 31.2 L Hemoglobin Concent Red Cell 17.5 H Distribution Width Platelet Count 365 Mean Platelet Volume 10.1 Immature 0.300 Granulocytes % Neutrophils % 45.2 Lymphocytes % 43.0 Monocytes % 5.3 Eosinophils % 5.4 Basophils % 0.8 Nucleated Red Blood 0.0 Cells % Immature 0.020 Granulocytes # Neutrophils # 2.7 Lymphocytes # 2.6 Monocytes # 0.3 Eosinophils # 0.3 Basophils # 0.1 Nucleated Red Blood 0.0 Cells # Sodium Level 138 Potassium Level 4.3 Chloride Level 103 Carbon Dioxide Level 28 Anion Gap 7 Blood Urea Nitrogen 7 Creatinine 0.33 L Est Glomerular > 60 Filtrat Rate mL/min Glucose Level 162 Calcium Level 8.5 Phosphorus Level 2.6 Magnesium Level 1.9 Vancomycin Level 11.0 Trough Test 07/02/18 11:28 07/02/18 12:20 Bedside Glucose 160 145 Medications Medication Current Medications Ondansetron HCl (Zofran Inj) 4 mg Q6H PRN IV NAUSEA AND/OR VOMITING Last administered on 07/02/18 10:34; Admin Dose 4 MG; Start 06/09/18 at 00:30 Ipratropium [place] (Atrovent 0.02% (Neb)) 0.5 mg Q2H RESP THERAPY PRN NEB SHORTNESS OF BREATH Last administered on 06/14/18 21:38; Admin Dose 0.5 MG; Start 06/09/18 at 00:30 Acetaminophen (Tylenol Liquid) 650 mg Q6H PRN PO PAIN LEVEL 1-3 OR FEVER Last administered on 06/29/18 05:58; Admin Dose 650 MG; Start 06/09/18 at 00:30 Docusate Sodium (Colace) 100 mg Q12H PRN PO CONSTIPATION Last administered on 06/29/18 05:59; Admin Dose 100 MG; Start 06/09/18 at 00:30 Bisacodyl (Dulcolax) 5 mg DAILY PRN PO CONSTIPATION Last administered on 06/29/18 05:58; Admin Dose 5 MG; Start 06/09/18 at 00:30 Pantoprazole (Protonix Tab) 40 mg DAILY@06 PO Last administered on 07/02/18 05:50; Admin Dose 40 MG; Start 06/09/18 at 06:00 Diagnostic Test (Pha) (Accu-Chek) 1 ea 02 XX Last administered on 07/01/18 02:00; Admin Dose 1 EA; Start 06/10/18 at 02:00 Insulin Aspart (Novolog Insulin Pen) NOVOLOG *MILD* ALGORITHM WITH MEALS BEDTIME SC Last administered on 07/02/18at 12:23; Admin Dose 1 UNIT; Start 06/09/18 at 18:00 Miscellaneous Information 1 ea NOTE XX ; Start 06/09/18 at 14:30 Glucose (Glutose) 15 gm Q15M PRN PO DECREASED GLUCOSE; Start 06/09/18 at 14:30 Glucose (Glutose) 22.5 gm Q15M PRN PO DECREASED GLUCOSE; Start 06/09/18 at 14:30 Dextrose (D50w Syringe) 25 ml Q15M PRN IV DECREASED GLUCOSE Last administered on 06/29/18at 12:11; Admin Dose 25 ML; Start 06/09/18 at 14:30 Dextrose (D50w Syringe) 50 ml Q15M PRN IV DECREASED GLUCOSE; Start 06/09/18 at 14:30 Glucagon (Glucagen) 1 mg Q15M PRN IM DECREASED GLUCOSE; Start 06/09/18 at 14:30 Glucose (Glutose) 15 gm Q15M PRN BUCCAL DECREASED GLUCOSE; Start 06/09/18 at 14:30 Ferrous Sulfate (Ferrous Sulfate (Ec)) 325 mg DAILY PO Last administered on 07/02/18at 10:03; Admin Dose 325 MG; Start 06/13/18 at 10:30; Stop 08/12/18 at 10 :29 Levalbuterol (Xopenex Neb) 1.25 mg Q6H RESP THERAPY PRN HHN sob/wheezing Last administered on 06/14/18at 21:38; Admin Dose 1.25 MG; Start 06/14/18 at 09:00 Guaifenesin/ Dextromethorphan (Mucinex Dm) 1 tab BID PO Last administered on 07/02/18at 09:59; Admin Dose 1 TAB; Start 06/14/18 at 09:30 Metformin HCl (Glucophage) 1,000 mg BID WITH MEALS PO Last administered on 07/02/18at 07:58; Admin Dose 1,000 MG; Start 06/16/18 at 18:00 Ascorbic Acid (Vitamin C) 500 mg DAILY PO Last administered on 07/02/18at 09:59; Admin Dose 500 MG; Start 06/17/18 at 09:00; Stop 08/16/18 at 08:59 Guaifenesin/ Codeine Phosphate (Robitussin Ac Liquid Cup) 5 ml Q4H PRN PO cough Last administered on 06/18/18 20:25; Admin Dose 5 ML; Start 06/18/18 at 12:00 Rifampin (Rifampin) 600 mg DAILY PO Last administered on 07/02/18 09:59; Admin Dose 600 MG; Start 06/20/18 at 14:30 Glimepiride (Amaryl) 4 mg QHS PO Last administered on 07/01/18 21:23; Admin Dose 4 MG; Start 06/25/18 at 21:00 Glimepiride (Amaryl) 2 mg AC BREAKFAST PO Last administered on 07/02/18 07:45; Admin Dose 2 MG; Start 06/26/18 at 07:00 Vancomycin HCl (Vanco Iv Per Pharmacy) VANCOMYCIN PER PHARMACY PER PROTOCOL XX ; Start 06/28/18 at 16:00 IV Flush (NS 10 ml) 10 ml PRN PRN IV FLUSH LINE; Start 06/28/18 at 18:30 Magnesium Citrate (Citroma) 300 ml DAILY PRN PO constipation Last administered on 07/01/18 23:15; Admin Dose 300 ML; Start 06/29/18 at 15:00 Zolpidem Tartrate (Ambien) 10 mg HS PRN PO insomnia Last administered on 06/29/18 21:55; Admin Dose 10 MG; Start 06/29/18 at 17:00 Multi-Ingredient Ointment (Eucerin Cream) 1 applic BID TOP Last administered on 07/02/18 10:01; Admin Dose 1 APPLIC; Start 07/01/18 at 21:30 Alteplase, Recombinant (Cathflo (Activase)) 2 mg MAY REPEAT X1 PRN CATHETER IF CATHETER REMAINS OCCULUDED Last administered on 07/02/18 09:54; Admin Dose 2 MG; Start 07/02/18 at 09:30; Stop 07/02/18 at 23:00 Insulin Human NPH (Humulin N) 12 unit DAILY@20 SC ; Start 07/02/18 at 20:00 Vancomycin HCl 1.25 gm/Sodium Chloride 250 ml @ 83.333 mls/ hr Q8H IVPB Last administered on 07/02/18 11:10; Admin Dose 83.333 MLS/HR; Start 07/02/18 at 11:00 HAYLEE MACIAS Jul 02, 2018 12:57
[2018-07-02 13:57] VITALS: BP 107/70; PULSE 68; RESP 18
--- NOTE | 2018-07-02 15:00 | PN ---
Date/Time of Note Date/Time of Note DATE: 07/02/18 TIME: 14:58 Objective Vitals Vital Signs Date Temp Pulse Resp B/P (MAP) Pulse Ox O2 O2 Flow FiO2 Time Delivery Rate 07/02/18 97.5 68 18 107/70 98 13:57 (82) 06/29/18 Room Air 15:15 Intake and Output 07/01/18 07/01/18 07/02/18 1414:59 22:59 06:59 IntakeIntake Total 790 ml 670 ml 910 ml BalanceBalance 790 ml 670 ml 910 ml Results Result Diagram: 07/02/1882307/02/18823 Medications Medications Current Medications Ondansetron HCl (Zofran Inj) 4 mg Q6H PRN IV NAUSEA AND/OR VOMITING Last administered on 07/02/18 10:34; Admin Dose 4 MG; Start 06/09/18 at 00:30 Ipratropium [place] (Atrovent 0.02% (Neb)) 0.5 mg Q2H RESP THERAPY PRN NEB JOSEPH RTNESS OF BREATH Last administered on 06/14/18 21:38; Admin Dose 0.5 MG; Start 06/09/18 at 00:30 Acetaminophen (Tylenol Liquid) 650 mg Q6H PRN PO PAIN LEVEL 1-3 OR FEVER Last administered on 06/29/18 05:58; Admin Dose 650 MG; Start 06/09/18 at 00:30 Docusate Sodium (Colace) 100 mg Q12H PRN PO CONSTIPATION Last administered on 06/29/18 05:59; Admin Dose 100 MG; Start 06/09/18 at 00:30 Bisacodyl (Dulcolax) 5 mg DAILY PRN PO CONSTIPATION Last administered on 06/29/18 05:58; Admin Dose 5 MG; Start 06/09/18 at 00:30 Pantoprazole (Protonix Tab) 40 mg DAILY@06 PO Last administered on 07/02/18 05:50; Admin Dose 40 MG; Start 06/09/18 at 06:00 Diagnostic Test (Pha) (Accu-Chek) 1 ea 02 XX Last administered on 07/01/18 02:00; Admin Dose 1 EA; Start 06/10/18 at 02:00 Insulin Aspart (Novolog Insulin Pen) NOVOLOG *MILD* ALGORITHM WITH MEALS BEDTIME SC Last administered on 07/02/18at 12:23; Admin Dose 1 UNIT; Start 06/09/18 at 18:00 Miscellaneous Information 1 ea NOTE XX ; Start 06/09/18 at 14:30 Glucose (Glutose) 15 gm Q15M PRN PO DECREASED GLUCOSE; Start 06/09/18 at 14:30 Glucose (Glutose) 22.5 gm Q15M PRN PO DECREASED GLUCOSE; Start 06/09/18 at 14:30 Dextrose (D50w Syringe) 25 ml Q15M PRN IV DECREASED GLUCOSE Last administered on 06/29/18at 12:11; Admin Dose 25 ML; Start 06/09/18 at 14:30 Dextrose (D50w Syringe) 50 ml Q15M PRN IV DECREASED GLUCOSE; Start 06/09/18 at 14:30 Glucagon (Glucagen) 1 mg Q15M PRN IM DECREASED GLUCOSE; Start 06/09/18 at 14:30 Glucose (Glutose) 15 gm Q15M PRN BUCCAL DECREASED GLUCOSE; Start 06/09/18 at 14:30 Ferrous Sulfate (Ferrous Sulfate (Ec)) 325 mg DAILY PO Last administered on 07/02/18at 10:03; Admin Dose 325 MG; Start 06/13/18 at 10:30; Stop 08/12/18 at 10:29 Levalbuterol (Xopenex Neb) 1.25 mg Q6H RESP THERAPY PRN HHN sob/wheezing Last administered on 06/14/18at 21:38; Admin Dose 1.25 MG; Start 06/14/18 at 09:00 Guaifenesin/ Dextromethorphan (Mucinex Dm) 1 tab BID PO Last administered on 07/02/18at 09:59; Admin Dose 1 TAB; Start 06/14/18 at 09:30 Metformin HCl (Glucophage) 1,000 mg BID WITH MEALS PO Last administered on 07/02/18at 07:58; Admin Dose 1,000 MG; Start 06/16/18 at 18:00 Ascorbic Acid (Vitamin C) 500 mg DAILY PO Last administered on 07/02/18 09:59; Admin Dose 500 MG; Start 06/17/18 at 09:00; Stop 08/16/18 at 08:59 Guaifenesin/ Codeine Phosphate (Robitussin Ac Liquid Cup) 5 ml Q4H PRN PO cough Last administered on 06/18/18 20:25; Admin Dose 5 ML; Start 06/18/18 at 12:00 Rifampin (Rifampin) 600 mg DAILY PO Last administered on 07/02/18 09:59; Admin Dose 600 MG; Start 06/20/18 at 14:30 Glimepiride (Amaryl) 4 mg QHS PO Last administered on 07/01/18 21:23; Admin Dose 4 MG; Start 06/25/18 at 21:00 Glimepiride (Amaryl) 2 mg AC BREAKFAST PO Last administered on 07/02/18 07:45; Admin Dose 2 MG; Start 06/26/18 at 07:00 Vancomycin HCl (Vanco Iv Per Pharmacy) VANCOMYCIN PER PHARMACY PER PROTOCOL XX ; Start 06/28/18 at 16:00 IV Flush (NS 10 ml) 10 ml PRN PRN IV FLUSH LINE; Start 06/28/18 at 18:30 Magnesium Citrate (Citroma) 300 ml DAILY PRN PO constipation Last administered on 07/01/18 23:15; Admin Dose 300 ML; Start 06/29/18 at 15:00 Zolpidem Tartrate (Ambien) 10 mg HS PRN PO insomnia Last administered on 06/29/18 21:55; Admin Dose 10 MG; Start 06/29/18 at 17:00 Multi-Ingredient Ointment (Eucerin Cream) 1 applic BID TOP Last administered on 07/02/18 10:01; Admin Dose 1 APPLIC; Start 07/01/18 at 21:30 Alteplase, Recombinant (Cathflo (Activase)) 2 mg MAY REPEAT X1 PRN CATHETER IF CATHETER REMAINS OCCULUDED Last administered on 07/02/18 09:54; Admin Dose 2 MG; Start 07/02/18 at 09:30; Stop 07/02/18 at 23:00 Insulin Human NPH (Humulin N) 12 unit DAILY@20 SC ; Start 07/02/18 at 20:00 Vancomycin HCl 1.25 gm/Sodium Chloride 250 ml @ 83.333 mls/ hr Q8H IVPB Last administered on 07/02/18 11:10; Admin Dose 83.333 MLS/HR; Start 07/02/18 at 11:00 VTE Prophylaxis Risk score (from Nsg)>0 risk: 2 SCD applied (from Nsg): No SCD contraindication: other Lines/Catheters IV Catheter Type: Garcia in Place: No Assessment/Plan Hospital Course Subjective doing okay, no acute complaints Objective Physical exam General: Patient is laying in bed and answers questions appropriately Mentation: Patient is alert and oriented 4, Head: Normocephalic atraumatic Eyes: EOMI, pupils reactive to light Neck: Supple, nontender, midline Respiratory: Coarse to auscultation bilaterally Cardiovascular: regular rate, no obvious murmurs Gastrointestinal: non-tender to palpation, bowel sounds heard. Neurological: Moves all extremities spontaneously Skin: No new skin lesions Assessment/Plan Possible Endocarditis -found on BITA -IV abx 6 weeks per ID, however this may impose an issue as patient has a history of drug use, patient denies IV drug use however will need to move forward cautiously Abdominal pain, resolved -Stat CT abdomen pelvis ordered found to have large amounts of stool -Bowel regimen MRSA bacteremia - Repeat blood culture negative. Remains afebrile with nl WBC. - ID on board and appreciate recommendations. Continue on current antibiotics Tachycardia - most likely secondary to pulmonary process Poorly controlled diabetes - A1c noted - continues to fluctuate based on diet compliance - Admits to eating outside food since current diet is very bland. Discussed need to follow low sugar, low carb diet - Endocrinology on board and appreciate recommendations. Continue on current insulin and glimepiride. Extensive bilateral multilobar pneumonia - Patient found with MRSA in sputum and CT scan showing cavitating lesions but improvement in bilateral infiltrate - Pulm on board and continue current treatment. Cocci studies. After review of recent CT scan concern for septic emboli. - Repeat CT scan performed this am showing "Multifocal bilateral areas of pneumonia are again present and have diminished in overall size however there is interval development of multiple foci of lucencies within the areas of consolidation suggestive for bronchiectasis or developing small cavitary lesions." - ID recommendations appreciated Homelessness - SW on board - patient states she plans to go to rehab following discharge History of meth abuse - Patient states last use was 2 weeks prior to admission. Counseled on cessation. Tobacco use - Cessation advised. Iron Deficient anemia. - Continue oral iron. - H&H stable. Mild asthma. - Currently stable - nebs PRN Disposition -We will need infectious disease and pulmonology to finish workup, ultimately patient will need placement for 6 weeks of IV antibiotics. Patient at high risk of using PICC line for possible narcotics as patient does have a history of meth use HAYDEE RAYO Jul 02, 2018 15:00
[2018-07-02 20:25] VITALS: BP 105/71; PULSE 111; RESP 18
[2018-07-02] MEDS: GLIMEPIRIDE 4 MG TAB PO SCH (20:25)
[2018-07-02] MEDS: NPH, HUMAN INSULIN ISOPHANE 3ML VIAL SC SCH (20:27)
[2018-07-03] MEDS: ACCU-CHEK XX SCH (02:00)
[2018-07-03] MEDS: VANCOMYCIN HCL 1.25 GM in SOD CHLORIDE 0.9% 250 ML IVPB SCH ×3 (02:17→18:53)
[2018-07-03 02:30] VITALS: BP 111/79; PULSE 110; RESP 18
[2018-07-03] MEDS: PANTOPRAZOLE (EC) 40 MG TAB PO SCH (05:18)
[2018-07-03 08:04] VITALS: BP 103/60; PULSE 76; RESP 17
[2018-07-03] MEDS: INSULIN ASPART [NOVOLOG] 3 ML PEN SC SCH ×4 (08:31→21:00)
[2018-07-03] MEDS: GLIMEPIRIDE 2 MG TAB PO SCH (08:32)
[2018-07-03] MEDS: metFORMIN 500 MG TAB PO SCH ×2 (08:32→17:45)
[2018-07-03] MEDS: RIFAMPIN 300 MG CAP PO SCH (08:32)
[2018-07-03] MEDS: ASCORBIC ACID 500 MG TAB PO SCH (08:32)
[2018-07-03] MEDS: FERROUS SULFATE (EC) 325 MG TAB PO SCH (08:32)
[2018-07-03] MEDS: GUAIFENESIN/DM (SR) TAB PO SCH ×2 (08:32→21:14)
[2018-07-03] MEDS: EUCERIN 113 GM CR TOP SCH ×2 (08:33→21:15)
[2018-07-03] MEDS: ONDANSETRON 4 MG INJ IV PRN (08:39)
--- NOTE | 2018-07-03 11:53 | PN ---
Date/Time of Note Date/Time of Note DATE: 07/03/18 TIME: 11:52 Objective Vitals Vital Signs Date Temp Pulse Resp B/P (MAP) Pulse Ox O2 O2 Flow FiO2 Time Delivery Rate 07/03/18 98.3 76 17 103/60 98 08:04 (74) 06/29/18 Room Air 15:15 Intake and Output 07/02/18 07/02/18 07/03/18 1515:00 23:00 07:00 IntakeIntake Total 970 ml 240 ml 1320 ml BalanceBalance 970 ml 240 ml 1320 ml Results Result Diagram: 07/03/1847 07/03/18546 Medications Medications Current Medications Ondansetron HCl (Zofran Inj) 4 mg Q6H PRN IV NAUSEA AND/OR VOMITING Last administered on 07/03/18 08:39; Admin Dose 4 MG; Start 06/09/18 at 00:30 Ipratropium [place] (Atrovent 0.02% (Neb)) 0.5 mg Q2H RESP THERAPY PRN NEB S HORTNESS OF BREATH Last administered on 06/14/18 21:38; Admin Dose 0.5 MG; Start 06/09/18 at 00:30 Acetaminophen (Tylenol Liquid) 650 mg Q6H PRN PO PAIN LEVEL 1-3 OR FEVER Last administered on 06/29/18 05:58; Admin Dose 650 MG; Start 06/09/18 at 00:30 Docusate Sodium (Colace) 100 mg Q12H PRN PO CONSTIPATION Last administered on 06/29/18 05:59; Admin Dose 100 MG; Start 06/09/18 at 00:30 Bisacodyl (Dulcolax) 5 mg DAILY PRN PO CONSTIPATION Last administered on 06/29/18 05:58; Admin Dose 5 MG; Start 06/09/18 at 00:30 Pantoprazole (Protonix Tab) 40 mg DAILY@06 PO Last administered on 07/03/18 05:18; Admin Dose 40 MG; Start 06/09/18 at 06:00 Diagnostic Test (Pha) (Accu-Chek) 1 ea 02 XX Last administered on 07/01/18 02:00; Admin Dose 1 EA; Start 06/10/18 at 02:00 Insulin Aspart (Novolog Insulin Pen) NOVOLOG *MILD* ALGORITHM WITH MEALS BEDTIME SC Last administered on 07/03/18 08:31; Admin Dose 1 UNIT; Start 06/09/18 at 18:00 Miscellaneous Information 1 ea NOTE XX ; Start 06/09/18 at 14:30 Glucose (Glutose) 15 gm Q15M PRN PO DECREASED GLUCOSE; Start 06/09/18 at 14:30 Glucose (Glutose) 22.5 gm Q15M PRN PO DECREASED GLUCOSE; Start 06/09/18 at 14:30 Dextrose (D50w Syringe) 25 ml Q15M PRN IV DECREASED GLUCOSE Last administered on 06/29/18at 12:11; Admin Dose 25 ML; Start 06/09/18 at 14:30 Dextrose (D50w Syringe) 50 ml Q15M PRN IV DECREASED GLUCOSE; Start 06/09/18 at 14:30 Glucagon (Glucagen) 1 mg Q15M PRN IM DECREASED GLUCOSE; Start 06/09/18 at 14:30 Glucose (Glutose) 15 gm Q15M PRN BUCCAL DECREASED GLUCOSE; Start 06/09/18 at 14:30 Ferrous Sulfate (Ferrous Sulfate (Ec)) 325 mg DAILY PO Last administered on 07/03/18 08:32; Admin Dose 325 MG; Start 06/13/18 at 10:30; Stop 08/12/18 at 10:29 Levalbuterol (Xopenex Neb) 1.25 mg Q6H RESP THERAPY PRN HHN sob/wheezing Last administered on 06/14/18at 21:38; Admin Dose 1.25 MG; Start 06/14/18 at 09:00 Guaifenesin/ Dextromethorphan (Mucinex Dm) 1 tab BID PO Last administered on 07/03/18 08:32; Admin Dose 1 TAB; Start 06/14/18 at 09:30 Metformin HCl (Glucophage) 1,000 mg BID WITH MEALS PO Last administered on 07/03/18 08:32; Admin Dose 1,000 MG; Start 06/16/18 at 18:00 Ascorbic Acid (Vitamin C) 500 mg DAILY PO Last administered on 07/03/18 08:32; Admin Dose 500 MG; Start 06/17/18 at 09:00; Stop 08/16/18 at 08:59 Guaifenesin/ Codeine Phosphate (Robitussin Ac Liquid Cup) 5 ml Q4H PRN PO cough Last administered on 06/18/18 20:25; Admin Dose 5 ML; Start 06/18/18 at 12:00 Rifampin (Rifampin) 600 mg DAILY PO Last administered on 07/03/18 08:32; Admin Dose 600 MG; Start 06/20/18 at 14:30 Glimepiride (Amaryl) 4 mg QHS PO Last administered on 07/02/18 20:25; Admin Dose 4 MG; Start 06/25/18 at 21:00 Glimepiride (Amaryl) 2 mg AC BREAKFAST PO Last administered on 07/03/18 08:32; Admin Dose 2 MG; Start 06/26/18 at 07:00 Vancomycin HCl (Vanco Iv Per Pharmacy) VANCOMYCIN PER PHARMACY PER PROTOCOL XX ; Start 06/28/18 at 16:00 IV Flush (NS 10 ml) 10 ml PRN PRN IV FLUSH LINE; Start 06/28/18 at 18:30 Magnesium Citrate (Citroma) 300 ml DAILY PRN PO constipation Last administered on 07/01/18 23:15; Admin Dose 300 ML; Start 06/29/18 at 15:00 Zolpidem Tartrate (Ambien) 10 mg HS PRN PO insomnia Last administered on 06/29/18 21:55; Admin Dose 10 MG; Start 06/29/18 at 17:00 Multi-Ingredient Ointment (Eucerin Cream) 1 applic BID TOP Last administered on 07/03/18 08:33; Admin Dose 1 APPLIC; Start 07/01/18 at 21:30 Insulin Human NPH (Humulin N) 12 unit DAILY@20 SC Last administered on 07/02/18 20:27; Admin Dose 12 UNIT; Start 07/02/18 at 20:00 Vancomycin HCl 1.25 gm/Sodium Chloride 250 ml @ 83.333 mls/ hr Q8H IVPB Last administered on 07/03/18 11:38; Admin Dose 83.333 MLS/HR; Start 07/02/18 at 11:00 VTE Prophylaxis Risk score (from Ns)>0 risk: 2 SCD applied (from Ns): No SCD contraindication: other Lines/Catheters IV Catheter Type: Garcia in Place: No Assessment/Plan Hospital Course Subjective doing okay, no acute complaints Objective Physical exam General: Patient is laying in bed and answers questions appropriately Mentation: Patient is alert and oriented 4, Head: Normocephalic atraumatic Eyes: EOMI, pupils reactive to light Neck: Supple, nontender, midline Respiratory: Coarse to auscultation bilaterally Cardiovascular: regular rate, no obvious murmurs Gastrointestinal: non-tender to palpation, bowel sounds heard. Neurological: Moves all extremities spontaneously Skin: No new skin lesions Assessment/Plan Possible Endocarditis -found on BITA -IV abx 6 weeks per ID, however this may impose an issue as patient has a histo ry of drug use, patient denies IV drug use however will need to move forward cautiously Abdominal pain, resolved -Stat CT abdomen pelvis ordered found to have large amounts of stool -Bowel regimen MRSA bacteremia - Repeat blood culture negative. Remains afebrile with nl WBC. - ID on board and appreciate recommendations. Continue on current antibiotics Tachycardia - most likely secondary to pulmonary process Poorly controlled diabetes - A1c noted - continues to fluctuate based on diet compliance - Admits to eating outside food since current diet is very bland. Discussed need to follow low sugar, low carb diet - Endocrinology on board and appreciate recommendations. Continue on current insulin and glimepiride. Extensive bilateral multilobar pneumonia - Patient found with MRSA in sputum and CT scan showing cavitating lesions but improvement in bilateral infiltrate - Pulm on board and continue current treatment. Cocci studies. After review of recent CT scan concern for septic emboli. - Repeat CT scan performed this am showing "Multifocal bilateral areas of pneumonia are again present and have diminished in overall size however there is interval development of multiple foci of lucencies within the areas of consolidation suggestive for bronchiectasis or developing small cavitary lesions." - ID recommendations appreciated Homelessness - SW on board - patient states she plans to go to rehab following discharge History of meth abuse - Patient states last use was 2 weeks prior to admission. Counseled on cessation. Tobacco use - Cessation advised. Iron Deficient anemia. - Continue oral iron. - H&H stable. Mild asthma. - Currently stable - nebs PRN Disposition -We will need infectious disease and pulmonology to finish workup, ultimately patient will need placement for 6 weeks of IV antibiotics. Patient at high risk of using PICC line for possible narcotics as patient does have a history of meth use HAYDEE RAYO Jul 03, 2018 11:53
[2018-07-03 14:10] VITALS: BP 107/76; PULSE 104; RESP 18
--- NOTE | 2018-07-03 14:20 | CONS ---
Assessment/Plan Assessment/Plan Hospital Course (Demo Recall) 1300 Alert, feels good WBC 7.4 platelets 311 BUN 7 creatinine 0.31 Vanco trough yesterday 11 AFB smears negative 3 sets, cocci neg Microbiology: Blood culture on June 08 grew MRSA, repeat blood cultures negative, sputum culture on June 16 grew Talia albicans and MRSA. Serology for HIV negative Antimicrobials: Rifampin Vanco Physical examination: Well-developed middle-aged woman who is alert in no distress. Head atraumatic normocephalic sclera nonicteric. Neck is supple ches t rise symmetrical breath sounds diminished bases. Heart S1-S2. Abdomen soft bowel sounds present. Extremities without cyanosis. Assessment: 1. S/p sepsis 2. 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 Necrotizing MRSA pneumonia with areas of cavitation per CT ?septic emboli 4. Homelessness 5. Poorly controlled diabetes 6. Meth amphetamine abuse Plan: Remains stable, pending discharge arrangements on IV Vanco to complete total of 8 weeks, last dose August 05 Consultation Date/Type/Reason Admit Date/Time Jun 08, 2018 at 23:53 Initial Consult Date Type of Consult id Requesting Provider: HAYDEE RAYO Date/Time of Note DATE: 07/03/18 TIME: 14:18 Exam/Review of Systems Exam Vitals Vital Signs Date Temp Pulse Resp B/P (MAP) Pulse Ox O2 O2 Flow FiO2 Time Delivery Rate 07/03/18 98.8 104 18 107/76 99 14:10 (86) 06/29/18 Room Air 15:15 Intake and Output 07/02/18 07/02/18 07/03/18 1515:00 23:00 07:00 IntakeIntake Total 970 ml 240 ml 1320 ml BalanceBalance 970 ml 240 ml 1320 ml Results Result Diagram: 07/03/18 0547 07/03/18 0547 Results 24hrs Laboratory Tests Test 07/02/18 17:08 07/02/18 20:23 07/03/18 02:16 07/03/18 05:47 Bedside Glucose 223 H 166 136 White Blood Count 7.4 # Red Blood Count 3.79 L Hemoglobin 10.9 L Hematocrit 34.3 L Mean Corpuscular 90.5 Volume Mean Corpuscular 28.8 L Hemoglobin Mean Corpuscular 31.8 L Hemoglobin Concent Red Cell 17.9 H Distribution Width Platelet Count 311 Mean Platelet Volume 9.9 Immature 0.100 Granulocytes % Neutrophils % 49.2 Lymphocytes % 40.7 Monocytes % 5.0 Eosinophils % 4.1 Basophils % 0.9 Nucleated Red Blood 0.0 Cells % Immature 0.010 Granulocytes # Neutrophils # 3.6 Lymphocytes # 3.0 H Monocytes # 0.4 Eosinophils # 0.3 Basophils # 0.1 Nucleated Red Blood 0.0 Cells # Sodium Level 138 Potassium Level 4.0 Chloride Level 104 Carbon Dioxide Level 27 Anion Gap 7 Blood Urea Nitrogen 7 Creatinine 0.31 L Est Glomerular > 60 Filtrat Rate mL/min Glucose Level 103 # Calcium Level 8.7 Phosphorus Level 3.2 Magnesium Level 1.8 Test 07/03/18 08:28 07/03/18 12:01 Bedside Glucose 159 73 Medications Medication Current Medications Ondansetron HCl (Zofran Inj) 4 mg Q6H PRN IV NAUSEA AND/OR VOMITING Last administered on 07/03/18 08:39; Admin Dose 4 MG; Start 06/09/18 at 00:30 Ipratropium [place] (Atrovent 0.02% (Neb)) 0.5 mg Q2H RESP THERAPY PRN NEB SHORTNESS OF BREATH Last administered on 06/14/18 21:38; Admin Dose 0.5 MG; Start 06/09/18 at 00:30 Acetaminophen (Tylenol Liquid) 650 mg Q6H PRN PO PAIN LEVEL 1-3 OR FEVER Last administered on 06/29/18 05:58; Admin Dose 650 MG; Start 06/09/18 at 00:30 Docusate Sodium (Colace) 100 mg Q12H PRN PO CONSTIPATION Last administered on 06/29/18 05:59; Admin Dose 100 MG; Start 06/09/18 at 00:30 Bisacodyl (Dulcolax) 5 mg DAILY PRN PO CONSTIPATION Last administered on 06/29/18 05:58; Admin Dose 5 MG; Start 06/09/18 at 00:30 Pantoprazole (Protonix Tab) 40 mg DAILY@06 PO Last administered on 07/03/18 05:18; Admin Dose 40 MG; Start 06/09/18 at 06:00 Diagnostic Test (Pha) (Accu-Chek) 1 ea 02 XX Last administered on 07/01/18 02:00; Admin Dose 1 EA; Start 06/10/18 at 02:00 Insulin Aspart (Novolog Insulin Pen) NOVOLOG *MILD* ALGORITHM WITH MEALS BEDTIME SC Last administered on 07/03/18 08:31; Admin Dose 1 UNIT; Start 06/09/18 at 18:00 Miscellaneous Information 1 ea NOTE XX ; Start 06/09/18 at 14:30 Glucose (Glutose) 15 gm Q15M PRN PO DECREASED GLUCOSE; Start 06/09/18 at 14:30 Glucose (Glutose) 22.5 gm Q15M PRN PO DECREASED GLUCOSE; Start 06/09/18 at 14:30 Dextrose (D50w Syringe) 25 ml Q15M PRN IV DECREASED GLUCOSE Last administered on 06/29/18at 12:11; Admin Dose 25 ML; Start 06/09/18 at 14:30 Dextrose (D50w Syringe) 50 ml Q15M PRN IV DECREASED GLUCOSE; Start 06/09/18 at 14:30 Glucagon (Glucagen) 1 mg Q15M PRN IM DECREASED GLUCOSE; Start 06/09/18 at 14:30 Glucose (Glutose) 15 gm Q15M PRN BUCCAL DECREASED GLUCOSE; Start 06/09/18 at 14:30 Ferrous Sulfate (Ferrous Sulfate (Ec)) 325 mg DAILY PO Last administered on 07/03/18at 08:32; Admin Dose 325 MG; Start 06/13/18 at 10:30; Stop 08/12/18 at 10:29 Levalbuterol (Xopenex Neb) 1.25 mg Q6H RESP THERAPY PRN HHN sob/wheezing Last administered on 06/14/18at 21:38; Admin Dose 1.25 MG; Start 06/14/18 at 09:00 Guaifenesin/ Dextromethorphan (Mucinex Dm) 1 tab BID PO Last administered on 07/03/18 08:32; Admin Dose 1 TAB; Start 06/14/18 at 09:30 Metformin HCl (Glucophage) 1,000 mg BID WITH MEALS PO Last administered on 07/03/18 08:32; Admin Dose 1,000 MG; Start 06/16/18 at 18:00 Ascorbic Acid (Vitamin C) 500 mg DAILY PO Last administered on 07/03/18at 08:32; Admin Dose 500 MG; Start 06/17/18 at 09:00; Stop 08/16/18 at 08:59 Guaifenesin/ Codeine Phosphate (Robitussin Ac Liquid Cup) 5 ml Q4H PRN PO cough Last administered on 06/18/18 20:25; Admin Dose 5 ML; Start 06/18/18 at 12:00 Rifampin (Rifampin) 600 mg DAILY PO Last administered on 07/03/18 08:32; Admin Dose 600 MG; Start 06/20/18 at 14:30 Glimepiride (Amaryl) 4 mg QHS PO Last administered on 07/02/18 20:25; Admin Dose 4 MG; Start 06/25/18 at 21:00 Glimepiride (Amaryl) 2 mg AC BREAKFAST PO Last administered on 07/03/18 08:32; Admin Dose 2 MG; Start 06/26/18 at 07:00 Vancomycin HCl (Vanco Iv Per Pharmacy) VANCOMYCIN PER PHARMACY PER PROTOCOL XX ; Start 06/28/18 at 16:00 IV Flush (NS 10 ml) 10 ml PRN PRN IV FLUSH LINE; Start 06/28/18 at 18:30 Magnesium Citrate (Citroma) 300 ml DAILY PRN PO constipation Last administered on 07/01/18 23:15; Admin Dose 300 ML; Start 06/29/18 at 15:00 Zolpidem Tartrate (Ambien) 10 mg HS PRN PO insomnia Last administered on 06/29/18 21:55; Admin Dose 10 MG; Start 06/29/18 at 17:00 Multi-Ingredient Ointment (Eucerin Cream) 1 applic BID TOP Last administered on 07/03/18 08:33; Admin Dose 1 APPLIC; Start 07/01/18 at 21:30 Insulin Human NPH (Humulin N) 12 unit DAILY@20 SC Last administered on 07/02/18 20:27; Admin Dose 12 UNIT; Start 07/02/18 at 20:00 Vancomycin HCl 1.25 gm/Sodium Chloride 250 ml @ 83.333 mls/ hr Q8H IVPB Last administered on 07/03/18 11:38; Admin Dose 83.333 MLS/HR; Start 07/02/18 at 11:00 JOSE GOVEA NP Jul 03, 2018 14:20
--- NOTE | 2018-07-03 17:38 | CONS ---
Consult Date/Type/Reason Admit Date/Time Jun 08, 2018 at 23:53 Initial Consult Date 06/26/18 Type of Consultation: cv Requesting Provider: HAYDEE RAYO Date/Time of Note DATE: 07/03/18 TIME: 17:36 Subjective Cardiology follow-up progress Subjective: Discussed with the staff . pt is off tele now Patient is in isolation no report of chest pain Objective: General: no acute distress HEENT: NC/AT. pupils are equal. round. NECK: NO JVD. no stridor. CV: RRR. systolic murmur; no gallop or rubs. PULM: no wheezing . GI: SOFT, NT, ND, no rebound or guarding Extremity: No significant B/L LE edema. no clubbing. neuro: Sleeping comfortably Psych: calm and pleasant rectal: deferred Derm: Multiple tattoos Repeat echocardiogram on 06/26/2018 shows: Normal left ventricular systolic function. Normal left ventricular cavity size. Left ventricular wall thickness upper limits of normal. Ejection fraction is visually estimated at 60 %. Tissue Doppler/Mitral Doppler indices are consistent with impaired relaxation (Stage I diastolic dysfunction). Normal right ventricular size. Normal right ventricular systolic function. The left atrium is normal in size. The right atrium is normal in size. No significant valvular stenosis or regurgitation seen. Normal pericardium with no significant pericardial effusion. BITA 06/28/18 Normal LV size and systolic function with trace MR and TR Echo density/thickening of the tricuspid valve is noted. Vegetation cannot be ruled out Objective Vitals Vital Signs Date Temp Pulse Resp B/P (MAP) Pulse Ox O2 O2 Flow FiO2 Time Delivery Rate 07/03/18 98.8 104 18 107/76 99 14:10 (86) 06/29/18 Room Air 15:15 Intake and Output 07/02/18 07/02/18 07/03/18 1515:00 23:00 07:00 IntakeIntake Total 970 ml 240 ml 1320 ml BalanceBalance 970 ml 240 ml 1320 ml Results/Medications Result Diagram: 07/03/18 0547 07/03/18 0547 Results 24 hrs Laboratory Tests Test 07/02/18 20:23 07/03/18 02:16 07/03/18 05:47 07/03/18 08:28 Bedside Glucose 166 136 159 White Blood Count 7.4 # Red Blood Count 3.79 L Hemoglobin 10.9 L Hematocrit 34.3 L Mean Corpuscular 90.5 Volume Mean Corpuscular 28.8 L Hemoglobin Mean Corpuscular 31.8 L Hemoglobin Concent Red Cell 17.9 H Distribution Width Platelet Count 311 Mean Platelet Volume 9.9 Immature 0.100 Granulocytes % Neutrophils % 49.2 Lymphocytes % 40.7 Monocytes % 5.0 Eosinophils % 4.1 Basophils % 0.9 Nucleated Red Blood 0.0 Cells % Immature 0.010 Granulocytes # Neutrophils # 3.6 Lymphocytes # 3.0 H Monocytes # 0.4 Eosinophils # 0.3 Basophils # 0.1 Nucleated Red Blood 0.0 Cells # Sodium Level 138 Potassium Level 4.0 Chloride Level 104 Carbon Dioxide Level 27 Anion Gap 7 Blood Urea Nitrogen 7 Creatinine 0.31 L Est Glomerular > 60 Filtrat Rate mL/min Glucose Level 103 # Calcium Level 8.7 Phosphorus Level 3.2 Magnesium Level 1.8 Test 07/03/18 12:01 Bedside Glucose 73 Home Meds Unable to Obtain Active Prescriptions or Reported Meds Medications Current Medications Ondansetron HCl (Zofran Inj) 4 mg Q6H PRN IV NAUSEA AND/OR VOMITING Last administered on 07/03/18 08:39; Admin Dose 4 MG; Start 06/09/18 at 00:30 Ipratropium [place] (Atrovent 0.02% (Neb)) 0.5 mg Q2H RESP THERAPY PRN NEB SHORTNESS OF BREATH Last administered on 06/14/18 21:38; Admin Dose 0.5 MG; Start 06/09/18 at 00:30 Acetaminophen (Tylenol Liquid) 650 mg Q6H PRN PO PAIN LEVEL 1-3 OR FEVER Last administered on 06/29/18 05:58; Admin Dose 650 MG; Start 06/09/18 at 00:30 Docusate Sodium (Colace) 100 mg Q12H PRN PO CONSTIPATION Last administered on 06/29/18 05:59; Admin Dose 100 MG; Start 06/09/18 at 00:30 Bisacodyl (Dulcolax) 5 mg DAILY PRN PO CONSTIPATION Last administered on 06/29/18 05:58; Admin Dose 5 MG; Start 06/09/18 at 00:30 Pantoprazole (Protonix Tab) 40 mg DAILY@06 PO Last administered on 07/03/18 05:18; Admin Dose 40 MG; Start 06/09/18 at 06:00 Diagnostic Test (Pha) (Accu-Chek) 1 ea 02 XX Last administered on 07/01/18at 02:00; Admin Dose 1 EA; Start 06/10/18 at 02:00 Insulin Aspart (Novolog Insulin Pen) NOVOLOG *MILD* ALGORITHM WITH MEALS BEDTIME SC Last administered on 07/03/18at 08:31; Admin Dose 1 UNIT; Start 06/09/18 at 18:00 Miscellaneous Information 1 ea NOTE XX ; Start 06/09/18 at 14:30 Glucose (Glutose) 15 gm Q15M PRN PO DECREASED GLUCOSE; Start 06/09/18 at 14:30 Glucose (Glutose) 22.5 gm Q15M PRN PO DECREASED GLUCOSE; Start 06/09/18 at 14:30 Dextrose (D50w Syringe) 25 ml Q15M PRN IV DECREASED GLUCOSE Last administered on 06/29/18at 12:11; Admin Dose 25 ML; Start 06/09/18 at 14:30 Dextrose (D50w Syringe) 50 ml Q15M PRN IV DECREASED GLUCOSE; Start 06/09/18 at 14:30 Glucagon (Glucagen) 1 mg Q15M PRN IM DECREASED GLUCOSE; Start 06/09/18 at 14:30 Glucose (Glutose) 15 gm Q15M PRN BUCCAL DECREASED GLUCOSE; Start 06/09/18 at 14:30 Ferrous Sulfate (Ferrous Sulfate (Ec)) 325 mg DAILY PO Last administered on 07/03/18 08:32; Admin Dose 325 MG; Start 06/13/18 at 10:30; Stop 08/12/18 at 10:29 Levalbuterol (Xopenex Neb) 1.25 mg Q6H RESP THERAPY PRN HHN sob/wheezing Last administered on 06/14/18at 21:38; Admin Dose 1.25 MG; Start 06/14/18 at 09:00 Guaifenesin/ Dextromethorphan (Mucinex Dm) 1 tab BID PO Last administered on 07/03/18 08:32; Admin Dose 1 TAB; Start 06/14/18 at 09:30 Metformin HCl (Glucophage) 1,000 mg BID WITH MEALS PO Last administered on 07/03/18 08:32; Admin Dose 1,000 MG; Start 06/16/18 at 18:00 Ascorbic Acid (Vitamin C) 500 mg DAILY PO Last administered on 07/03/18 08:32; Admin Dose 500 MG; Start 06/17/18 at 09:00; Stop 08/16/18 at 08:59 Guaifenesin/ Codeine Phosphate (Robitussin Ac Liquid Cup) 5 ml Q4H PRN PO cough Last administered on 06/18/18 20:25; Admin Dose 5 ML; Start 06/18/18 at 12:00 Rifampin (Rifampin) 600 mg DAILY PO Last administered on 07/03/18 08:32; Admin Dose 600 MG; Start 06/20/18 at 14:30 Glimepiride (Amaryl) 4 mg QHS PO Last administered on 07/02/18 20:25; Admin Dose 4 MG; Start 06/25/18 at 21:00 Glimepiride (Amaryl) 2 mg AC BREAKFAST PO Last administered on 07/03/18 08:32; Admin Dose 2 MG; Start 06/26/18 at 07:00 Vancomycin HCl (Vanco Iv Per Pharmacy) VANCOMYCIN PER PHARMACY PER PROTOCOL XX ; Start 06/28/18 at 16:00 IV Flush (NS 10 ml) 10 ml PRN PRN IV FLUSH LINE; Start 06/28/18 at 18:30 Magnesium Citrate (Citroma) 300 ml DAILY PRN PO constipation Last administered on 07/01/18 23:15; Admin Dose 300 ML; Start 06/29/18 at 15:00 Zolpidem Tartrate (Ambien) 10 mg HS PRN PO insomnia Last administered on 06/29/18 21:55; Admin Dose 10 MG; Start 06/29/18 at 17:00 Multi-Ingredient Ointment (Eucerin Cream) 1 applic BID TOP Last administered on 07/03/18 08:33; Admin Dose 1 APPLIC; Start 07/01/18 at 21:30 Insulin Human NPH (Humulin N) 12 unit DAILY@20 SC Last administered on 07/02/18 20:27; Admin Dose 12 UNIT; Start 07/02/18 at 20:00 Vancomycin HCl 1.25 gm/Sodium Chloride 250 ml @ 83.333 mls/ hr Q8H IVPB Last administered on 07/03/18 11:38; Admin Dose 83.333 MLS/HR; Start 07/02/18 at 11:00 Assessment/Plan Hospital Course (Demo Recall) 1. MRSA bacteremia, with a possible vegetation on tricuspid valve on the transesophageal echocardiogram 2. Pneumonia 3. Status post DKA 4. Diabetes 5. Anemia 6. Homelessness Recommendations: Diabetic management as per internal medicine and endocrine child development consultant. Antibiotic management as per infectious disease recommendations. thank you for this referral. We will continue to follow along with you as needed ABDI JAY MD [facility] ABDI JAY MD Jul 03, 2018 17:38
[2018-07-03 20:00] VITALS: BP 126/58; PULSE 86; RESP 18
[2018-07-03] MEDS: GLIMEPIRIDE 4 MG TAB PO SCH (21:14)
[2018-07-03] MEDS: NPH, HUMAN INSULIN ISOPHANE 3ML VIAL SC SCH (21:14)
[2018-07-04] MEDS: ACCU-CHEK XX SCH (01:22)
[2018-07-04 02:00] VITALS: BP 98/68; PULSE 90; RESP 18
[2018-07-04] MEDS: VANCOMYCIN HCL 1.25 GM in SOD CHLORIDE 0.9% 250 ML IVPB SCH ×3 (04:23→18:54)
[2018-07-04] MEDS: PANTOPRAZOLE (EC) 40 MG TAB PO SCH (05:40)
[2018-07-04 08:00] VITALS: BP 118/64; PULSE 72; RESP 20
[2018-07-04] MEDS: metFORMIN 500 MG TAB PO SCH ×2 (08:40→17:07)
[2018-07-04] MEDS: FERROUS SULFATE (EC) 325 MG TAB PO SCH (08:41)
[2018-07-04] MEDS: RIFAMPIN 300 MG CAP PO SCH (08:41)
[2018-07-04] MEDS: GUAIFENESIN/DM (SR) TAB PO SCH ×2 (08:41→20:57)
[2018-07-04] MEDS: GLIMEPIRIDE 2 MG TAB PO SCH (08:41)
[2018-07-04] MEDS: ASCORBIC ACID 500 MG TAB PO SCH (08:41)
[2018-07-04] MEDS: INSULIN ASPART [NOVOLOG] 3 ML PEN SC SCH ×4 (08:43→20:57)
[2018-07-04] MEDS: ONDANSETRON 4 MG INJ IV PRN (08:46)
[2018-07-04] MEDS: EUCERIN 113 GM CR TOP SCH ×2 (08:47→21:01)
[2018-07-04] MEDS ORDERED: MAGNESIUM SULFATE 2 GM/50 ML 50 ML IVPB ONE (09:30)
--- NOTE | 2018-07-04 11:26 | PN ---
Date/Time of Note Date/Time of Note DATE: 07/04/18 TIME: 11:25 Assessment/Plan VTE Prophylaxis Risk score (from Ns)>0 risk: 2 SCD applied (from Ns): No SCD contraindicated: low risk/ambulating Pharmacological prophylaxis: NA/contraindicated Pharm contraindication: low risk/ambulating Lines/Catheters IV [facility]ter [facility] (from [facility] PICC Line Central line still needed: Yes Urinary Cath still in place: No Assessment/Plan Assessment/Plan 1. ?Endocarditis with vegetation on tricuspid valve - Cardiology on board and recommendations appreciated. BITA performed with thickening/densities on TV. Unable to rule out vegetation. Will treat for endocarditis in setting of MRSA bacteremia and hx drug use - ID on board and appreciate recommendations. Will need antibiotics until 08/05 for a total of 8 weeks - persistent tachycardia resolved 2. MRSA bacteremia - Repeat blood culture negative. Remains afebrile with nl WBC. - ID on board and appreciate recommendations. Continue on current antibiotics 3. Poorly controlled diabetes- improved - A1c noted - sugars remain controlled - Endocrinology on board and appreciate recommendations. Continue on current insulin and glimepiride. 4. Extensive bilateral multilobar pneumonia - Patient found with MRSA in sputum and CT scan showing cavitating lesions but improvement in bilateral infiltrate - Pulm on board and continue current treatment. Cocci studies. After review of recent CT scan concern for septic emboli. BITA performed - Repeat CT scan performed this am showing "Multifocal bilateral areas of pneumonia are again present and have diminished in overall size however there is interval development of multiple foci of lucencies within the areas of consolid ation suggestive for bronchiectasis or developing small cavitary lesions." - ID recommendations appreciated 5. Homelessness - SW on board 6. History of meth abuse - Patient states last use was 2 weeks prior to admission. Counseled on cessation. 7. Tobacco use - Cessation advised. 8. Iron Deficient anemia. - Continue oral iron. - H&H stable. 9. Mild asthma. - Currently stable - nebs PRN 10. 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 Result Diagram: 07/04/18 0548 07/04/18 0548 Results 24hrs Laboratory Tests Test 07/03/18 12:01 07/03/18 17:38 07/03/18 21:11 07/04/18 05:48 Bedside Glucose 73 172 130 White Blood Count 7.1 Red Blood Count 3.95 L Hemoglobin 11.5 L Hematocrit 36.1 L Mean Corpuscular 91.4 Volume Mean Corpuscular 29.1 Hemoglobin Mean Corpuscular 31.9 L Hemoglobin Concent Red Cell 18.2 H Distribution Width Platelet Count 275 Mean Platelet Volume 10.3 Immature 0.300 Granulocytes % Neutrophils % 41.6 Lymphocytes % 45.2 Monocytes % 5.3 Eosinophils % 6.9 Basophils % 0.7 Nucleated Red Blood 0.0 Cells % Immature 0.020 Granulocytes # Neutrophils # 3.0 Lymphocytes # 3.2 H Monocytes # 0.4 Eosinophils # 0.5 Basophils # 0.1 Nucleated Red Blood 0.0 Cells # Sodium Level 137 Potassium Level 4.3 Chloride Level 102 Carbon Dioxide Level 26 Anion Gap 9 Blood Urea Nitrogen 12 Creatinine 0.31 L Est Glomerular > 60 Filtrat Rate mL/min Glucose Level 102 Calcium Level 9.1 Phosphorus Level 5.4 #H Magnesium Level 1.6 L Test 07/04/18 07:51 Bedside Glucose 162 Subjective 24 Hr Interval Summary Free Text/Dictation Patient denies any acute issues. No acute overnight events. Denies any SOB or chest pain. Exam/Review of Systems Exam Vitals Vital Signs Date Temp Pulse Resp B/P (MAP) Pulse Ox O2 O2 Flow FiO2 Time Delivery Rate 07/04/18 97.8 72 20 118/64 96 08:00 (82) Intake and Output 07/03/18 07/03/18 07/04/18 1414:59 22:59 06:59 IntakeIntake Total 970 ml 490 ml 160 ml BalanceBalance 970 ml 490 ml 160 ml Exam General: Patient is laying in bed and answers questions appropriately Eyes: EOMI, pupils reactive to light Neck: Supple, nontender, midline Respiratory: Coarse to auscultation bilaterally Cardiovascular: regular rate and rhythm, no obvious murmurs Gastrointestinal: soft, non-tender to palpation, bowel sounds heard. Neurological: Moves all extremities spontaneously Skin: No new skin lesions Results Results 24hrs Laboratory Tests Test 07/03/18 12:01 07/03/18 17:38 07/03/18 21:11 07/04/18 05:48 Bedside Glucose 73 172 130 White Blood Count 7.1 Red Blood Count 3.95 L Hemoglobin 11.5 L Hematocrit 36.1 L Mean Corpuscular 91.4 Volume Mean Corpuscular 29.1 Hemoglobin Mean Corpuscular 31.9 L Hemoglobin Concent Red Cell 18.2 H Distribution Width Platelet Count 275 Mean Platelet Volume 10.3 Immature 0.300 Granulocytes % Neutrophils % 41.6 Lymphocytes % 45.2 Monocytes % 5.3 Eosinophils % 6.9 Basophils % 0.7 Nucleated Red Blood 0.0 Cells % Immature 0.020 Granulocytes # Neutrophils # 3.0 Lymphocytes # 3.2 H Monocytes # 0.4 Eosinophils # 0.5 Basophils # 0.1 Nucleated Red Blood 0.0 Cells # Sodium Level 137 Potassium Level 4.3 Chloride Level 102 Carbon Dioxide Level 26 Anion Gap 9 Blood Urea Nitrogen 12 Creatinine 0.31 L Est Glomerular > 60 Filtrat Rate mL/min Glucose Level 102 Calcium Level 9.1 Phosphorus Level 5.4 #H Magnesium Level 1.6 L Test 07/04/18 07:51 Bedside Glucose 162 Medications Medication Current Medications Ondansetron HCl (Zofran Inj) 4 mg Q6H PRN IV NAUSEA AND/OR VOMITING Last ad ministered on 07/04/18 08:46; Admin Dose 4 MG; Start 06/09/18 at 00:30 Ipratropium [place] (Atrovent 0.02% (Neb)) 0.5 mg Q2H RESP THERAPY PRN NEB SHORTNESS OF BREATH Last administered on 06/14/18 21:38; Admin Dose 0.5 MG; Start 06/09/18 at 00:30 Acetaminophen (Tylenol Liquid) 650 mg Q6H PRN PO PAIN LEVEL 1-3 OR FEVER Last administered on 06/29/18 05:58; Admin Dose 650 MG; Start 06/09/18 at 00:30 Docusate Sodium (Colace) 100 mg Q12H PRN PO CONSTIPATION Last administered on 06/29/18 05:59; Admin Dose 100 MG; Start 06/09/18 at 00:30 Bisacodyl (Dulcolax) 5 mg DAILY PRN PO CONSTIPATION Last administered on 06/29/18 05:58; Admin Dose 5 MG; Start 06/09/18 at 00:30 Pantoprazole (Protonix Tab) 40 mg DAILY@06 PO Last administered on 07/04/18 05:40; Admin Dose 40 MG; Start 06/09/18 at 06:00 Diagnostic Test (Pha) (Accu-Chek) 1 ea 02 XX Last administered on 07/01/18at 02:00; Admin Dose 1 EA; Start 06/10/18 at 02:00 Insulin Aspart (Novolog Insulin Pen) NOVOLOG *MILD* ALGORITHM WITH MEALS BEDTIME SC Last administered on 07/04/18 08:43; Admin Dose 1 UNIT; Start 06/09/18 at 18:00 Miscellaneous Information 1 ea NOTE XX ; Start 06/09/18 at 14:30 Glucose (Glutose) 15 gm Q15M PRN PO DECREASED GLUCOSE; Start 06/09/18 at 14:30 Glucose (Glutose) 22.5 gm Q15M PRN PO DECREASED GLUCOSE; Start 06/09/18 at 14:30 Dextrose (D50w Syringe) 25 ml Q15M PRN IV DECREASED GLUCOSE Last administered on 06/29/18at 12:11; Admin Dose 25 ML; Start 06/09/18 at 14:30 Dextrose (D50w Syringe) 50 ml Q15M PRN IV DECREASED GLUCOSE; Start 06/09/18 at 14:30 Glucagon (Glucagen) 1 mg Q15M PRN IM DECREASED GLUCOSE; Start 06/09/18 at 14:30 Glucose (Glutose) 15 gm Q15M PRN BUCCAL DECREASED GLUCOSE; Start 06/09/18 at 14:30 Ferrous Sulfate (Ferrous Sulfate (Ec)) 325 mg DAILY PO Last administered on 07/04/18 08:41; Admin Dose 325 MG; Start 06/13/18 at 10:30; Stop 08/12/18 at 10:29 Levalbuterol (Xopenex Neb) 1.25 mg Q6H RESP THERAPY PRN HHN sob/wheezing Last administered on 06/14/18at 21:38; Admin Dose 1.25 MG; Start 06/14/18 at 09:00 Guaifenesin/ Dextromethorphan (Mucinex Dm) 1 tab BID PO Last administered on 07/04/18 08:41; Admin Dose 1 TAB; Start 06/14/18 at 09:30 Metformin HCl (Glucophage) 1,000 mg BID WITH MEALS PO Last administered on 07/04/18 08:40; Admin Dose 1,000 MG; Start 06/16/18 at 18:00 Ascorbic Acid (Vitamin C) 500 mg DAILY PO Last administered on 07/04/18 08:41; Admin Dose 500 MG; Start 06/17/18 at 09:00; Stop 08/16/18 at 08:59 Guaifenesin/ Codeine Phosphate (Robitussin Ac Liquid Cup) 5 ml Q4H PRN PO cough Last administered on 06/18/18 20:25; Admin Dose 5 ML; Start 06/18/18 at 12:00 Rifampin (Rifampin) 600 mg DAILY PO Last administered on 07/04/18 08:41; Admin Dose 600 MG; Start 06/20/18 at 14:30 Glimepiride (Amaryl) 4 mg QHS PO Last administered on 07/03/18 21:14; Admin Dose 4 MG; Start 06/25/18 at 21:00 Glimepiride (Amaryl) 2 mg AC BREAKFAST PO Last administered on 07/04/18 08:41; Admin Dose 2 MG; Start 06/26/18 at 07:00 Vancomycin HCl (Vanco Iv Per Pharmacy) VANCOMYCIN PER PHARMACY PER PROTOCOL XX ; Start 06/28/18 at 16:00 IV Flush (NS 10 ml) 10 ml PRN PRN IV FLUSH LINE; Start 06/28/18 at 18:30 Magnesium Citrate (Citroma) 300 ml DAILY PRN PO constipation Last administered on 07/01/18 23:15; Admin Dose 300 ML; Start 06/29/18 at 15:00 Zolpidem Tartrate (Ambien) 10 mg HS PRN PO insomnia Last administered on 06/29/18 21:55; Admin Dose 10 MG; Start 06/29/18 at 17:00 Multi-Ingredient Ointment (Eucerin Cream) 1 applic BID TOP Last administered on 07/04/18 08:47; Admin Dose 1 APPLIC; Start 07/01/18 at 21:30 Insulin Human NPH (Humulin N) 12 unit DAILY@20 SC Last administered on 07/03/18 21:14; Admin Dose 12 UNIT; Start 07/02/18 at 20:00 Vancomycin HCl 1.25 gm/Sodium Chloride 250 ml @ 83.333 mls/ hr Q8H IVPB Last administered on 07/04/18 04:23; Admin Dose 83.333 MLS/HR; Start 07/02/18 at 11:00 Magnesium Sulfate 50 ml @ 25 mls/hr ONCE ONCE IVPB Last administered on 07/04/18at 10:20; Admin Dose 25 MLS/HR; Start 07/04/18 at 09:30; Stop 07/04/18 at 11:29 DAVE HAMMONDS MD Jul 04, 2018 11:25
[2018-07-04 14:00] VITALS: BP 110/64; PULSE 72; RESP 18
--- NOTE | 2018-07-04 14:24 | CONS ---
Assessment/Plan Assessment/Plan Hospital Course (Demo Recall) No events, awake, looks comfortable, no fevers AFB smears negative 3 sets, cocci neg Microbiology: Blood culture on June 08 grew MRSA, repeat blood cultures negative, sputum culture on June 16 grew [place]ia albicans and MRSA. Serology for HIV negative Antimicrobials: Rifampin Vanco Physical examination: Well-developed middle-aged woman who is alert in no distress. Head atraumatic normocephalic sclera nonicteric. Neck is supple chest rise symmetrical breath sounds diminished bases. Heart S1-S2. Abdomen soft bowel sounds present. Extremities without cyanosis. Assessment: 1. S/p sepsis 2. 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 Necrotizing MRSA pneumonia with areas of cavitation per CT ?septic emboli 4. Homelessness 5. Poorly controlled diabetes 6. Meth amphetamine abuse Plan: Remains stable, pending discharge arrangements on IV Vanco to complete total of 8 weeks, last dose August 05 Consultation Date/Type/Reason Admit Date/Time Jun 08, 2018 at 23:53 Initial Consult Date Type of Consult id Requesting Provider: HAYDEE RAYO Date/Time of Note DATE: 07/04/18 TIME: 14:23 Exam/Review of Systems Exam Vitals Vital Signs Date Temp Pulse Resp B/P (MAP) Pulse Ox O2 O2 Flow FiO2 Time Delivery Rate 07/04/18 97.8 72 20 118/64 96 08:00 (82) Intake and Output 07/03/18 07/03/18 07/04/18 1515:00 23:00 07:00 IntakeIntake Total 970 ml 490 ml 160 ml BalanceBalance 970 ml 490 ml 160 ml Results Result Diagram: 07/04/18 0548 07/04/18 0548 Results 24hrs Laboratory Tests Test 07/03/18 17:38 07/03/18 21:11 07/04/18 05:48 07/04/18 07:51 Bedside Glucose 172 130 162 White Blood Count 7.1 Red Blood Count 3.95 L Hemoglobin 11.5 L Hematocrit 36.1 L Mean Corpuscular 91.4 Volume Mean Corpuscular 29.1 Hemoglobin Mean Corpuscular 31.9 L Hemoglobin Concent Red Cell 18.2 H Distribution Width Platelet Count 275 Mean Platelet Volume 10.3 Immature 0.300 Granulocytes % Neutrophils % 41.6 Lymphocytes % 45.2 Monocytes % 5.3 Eosinophils % 6.9 Basophils % 0.7 Nucleated Red Blood 0.0 Cells % Immature 0.020 Granulocytes # Neutrophils # 3.0 Lymphocytes # 3.2 H Monocytes # 0.4 Eosinophils # 0.5 Basophils # 0.1 Nucleated Red Blood 0.0 Cells # Sodium Level 137 Potassium Level 4.3 Chloride Level 102 Carbon Dioxide Level 26 Anion Gap 9 Blood Urea Nitrogen 12 Creatinine 0.31 L Est Glomerular > 60 Filtrat Rate mL/min Glucose Level 102 Calcium Level 9.1 Phosphorus Level 5.4 #H Magnesium Level 1.6 L Test 07/04/18 12:02 Bedside Glucose 149 Medications Medication Current Medications Ondansetron HCl (Zofran Inj) 4 mg Q6H PRN IV NAUSEA AND/OR VOMITING Last administered on 07/04/18 08:46; Admin Dose 4 MG; Start 06/09/18 at 00:30 Ipratropium [place] (Atrovent 0.02% (Neb)) 0.5 mg Q2H RESP THERAPY PRN NEB SHORTNESS OF BREATH Last administered on 06/14/18 21:38; Admin Dose 0.5 MG; Start 06/09/18 at 00:30 Acetaminophen (Tylenol Liquid) 650 mg Q6H PRN PO PAIN LEVEL 1-3 OR FEVER Last administered on 06/29/18 05:58; Admin Dose 650 MG; Start 06/09/18 at 00:30 Docusate Sodium (Colace) 100 mg Q12H PRN PO CONSTIPATION Last administered on 06/29/18 05:59; Admin Dose 100 MG; Start 06/09/18 at 00:30 Bisacodyl (Dulcolax) 5 mg DAILY PRN PO CONSTIPATION Last administered on 06/29/18 05:58; Admin Dose 5 MG; Start 06/09/18 at 00:30 Pantoprazole (Protonix Tab) 40 mg DAILY@06 PO Last administered on 07/04/18 05:40; Admin Dose 40 MG; Start 06/09/18 at 06:00 Diagnostic Test (Pha) (Accu-Chek) 1 ea 02 XX Last administered on 07/01/18 02:00; Admin Dose 1 EA; Start 06/10/18 at 02:00 Insulin Aspart (Novolog Insulin Pen) NOVOLOG *MILD* ALGORITHM WITH MEALS BEDTIME SC Last administered on 4/16/19at 12:33; Admin Dose 1 UNIT; Start 06/09/18 at 18:00 Miscellaneous Information 1 ea NOTE XX ; Start 06/09/18 at 14:30 Glucose (Glutose) 15 gm Q15M PRN PO DECREASED GLUCOSE; Start 06/09/18 at 14:30 Glucose (Glutose) 22.5 gm Q15M PRN PO DECREASED GLUCOSE; Start 06/09/18 at 14:30 Dextrose (D50w Syringe) 25 ml Q15M PRN IV DECREASED GLUCOSE Last administered on 06/29/18at 12:11; Admin Dose 25 ML; Start 06/09/18 at 14:30 Dextrose (D50w Syringe) 50 ml Q15M PRN IV DECREASED GLUCOSE; Start 06/09/18 at 14:30 Glucagon (Glucagen) 1 mg Q15M PRN IM DECREASED GLUCOSE; Start 06/09/18 at 14:30 Glucose (Glutose) 15 gm Q15M PRN BUCCAL DECREASED GLUCOSE; Start 06/09/18 at 14:30 Ferrous Sulfate (Ferrous Sulfate (Ec)) 325 mg DAILY PO Last administered on 07/04/18 08:41; Admin Dose 325 MG; Start 06/13/18 at 10:30; Stop 08/12/18 at 10:29 Levalbuterol (Xopenex Neb) 1.25 mg Q6H RESP THERAPY PRN HHN sob/wheezing Last administered on 06/14/18at 21:38; Admin Dose 1.25 MG; Start 06/14/18 at 09:00 Guaifenesin/ Dextromethorphan (Mucinex Dm) 1 tab BID PO Last administered on 07/04/18 08:41; Admin Dose 1 TAB; Start 06/14/18 at 09:30 Metformin HCl (Glucophage) 1,000 mg BID WITH MEALS PO Last administered on 07/04/18 08:40; Admin Dose 1,000 MG; Start 06/16/18 at 18:00 Ascorbic Acid (Vitamin C) 500 mg DAILY PO Last administered on 07/04/18 08:41; Admin Dose 500 MG; Start 06/17/18 at 09:00; Stop 08/16/18 at 08:59 Guaifenesin/ Codeine Phosphate (Robitussin Ac Liquid Cup) 5 ml Q4H PRN PO cough Last administered on 06/18/18 20:25; Admin Dose 5 ML; Start 06/18/18 at 12:00 Rifampin (Rifampin) 600 mg DAILY PO Last administered on 07/04/18 08:41; Admin Dose 600 MG; Start 06/20/18 at 14:30 Glimepiride (Amaryl) 4 mg QHS PO Last administered on 07/03/18 21:14; Admin Do se 4 MG; Start 06/25/18 at 21:00 Glimepiride (Amaryl) 2 mg AC BREAKFAST PO Last administered on 07/04/18 08:41; Admin Dose 2 MG; Start 06/26/18 at 07:00 Vancomycin HCl (Vanco Iv Per Pharmacy) VANCOMYCIN PER PHARMACY PER PROTOCOL XX ; Start 06/28/18 at 16:00 IV Flush (NS 10 ml) 10 ml PRN PRN IV FLUSH LINE; Start 06/28/18 at 18:30 Magnesium Citrate (Citroma) 300 ml DAILY PRN PO constipation Last administered on 07/01/18 23:15; Admin Dose 300 ML; Start 06/29/18 at 15:00 Zolpidem Tartrate (Ambien) 10 mg HS PRN PO insomnia Last administered on 06/29/18 21:55; Admin Dose 10 MG; Start 06/29/18 at 17:00 Multi-Ingredient Ointment (Eucerin Cream) 1 applic BID TOP Last administered on 07/04/18 08:47; Admin Dose 1 APPLIC; Start 07/01/18 at 21:30 Insulin Human NPH (Humulin N) 12 unit DAILY@20 SC Last administered on 07/03/18 21:14; Admin Dose 12 UNIT; Start 07/02/18 at 20:00 Vancomycin HCl 1.25 gm/Sodium Chloride 250 ml @ 83.333 mls/ hr Q8H IVPB Last administered on 07/04/18 12:32; Admin Dose 83.333 MLS/HR; Start 07/02/18 at 11:00 JOSE GOVEA NP Jul 04, 2018 14:24
--- NOTE | 2018-07-04 18:25 | CONS ---
Consult Date/Type/Reason Admit Date/Time Jun 08, 2018 at 23:53 Initial Consult Date 06/26/18 Type of Consultation: cv Requesting Provider: HAYDEE RAYO Date/Time of Note DATE: 07/04/18 TIME: 18:25 Subjective Cardiology follow-up progress Subjective: Discussed with the staff . pt is off tele now Patient is in isolation no report of chest pain Objective: General: no acute distress HEENT: NC/AT. pupils are equal. round. NECK: NO JVD. no stridor. CV: RRR. systolic murmur; no gallop or rubs. PULM: no wheezing . GI: SOFT, NT, ND, no rebound or guarding Extremity: No significant B/L LE edema. no clubbing. neuro: Sleeping comfortably Psych: calm and pleasant rectal: deferred Derm: Multiple tattoos Repeat echocardiogram on 06/26/2018 shows: Normal left ventricular systolic function. Normal left ventricular cavity size. Left ventricular wall thickness upper limits of normal. Ejection fraction is visually estimated at 60 %. Tissue Doppler/Mitral Doppler indices are consistent with impaired relaxation (Stage I diastolic dysfunction). Normal right ventricular size. Normal right ventricular systolic function. The left atrium is normal in size. The right atrium is normal in size. No significant valvular stenosis or regurgitation seen. Normal pericardium with no significant pericardial effusion. BITA 06/28/18 Normal LV size and systolic function with trace MR and TR Echo density/thickening of the tricuspid valve is noted. Vegetation cannot be ruled out Objective Vitals Vital Signs Date Temp Pulse Resp B/P (MAP) Pulse Ox O2 O2 Flow FiO2 Time Delivery Rate 07/04/18 98.8 72 18 110/64 94 14:00 (79) Intake and Output 07/03/18 07/03/18 07/04/18 1414:59 22:59 06:59 IntakeIntake Total 970 ml 490 ml 160 ml BalanceBalance 970 ml 490 ml 160 ml Results/Medications Result Diagram: 07/04/18 0548 07/04/18 0548 Results 24 hrs Laboratory Tests Test 07/03/18 21:11 07/04/18 05:48 07/04/18 07:51 07/04/18 12:02 Bedside Glucose 130 162 149 White Blood Count 7.1 Red Blood Count 3.95 L Hemoglobin 11.5 L Hematocrit 36.1 L Mean Corpuscular 91.4 Volume Mean Corpuscular 29.1 Hemoglobin Mean Corpuscular 31.9 L Hemoglobin Concent Red Cell 18.2 H Distribution Width Platelet Count 275 Mean Platelet Volume 10.3 Immature 0.300 Granulocytes % Neutrophils % 41.6 Lymphocytes % 45.2 Monocytes % 5.3 Eosinophils % 6.9 Basophils % 0.7 Nucleated Red Blood 0.0 Cells % Immature 0.020 Granulocytes # Neutrophils # 3.0 Lymphocytes # 3.2 H Monocytes # 0.4 Eosinophils # 0.5 Basophils # 0.1 Nucleated Red Blood 0.0 Cells # Sodium Level 137 Potassium Level 4.3 Chloride Level 102 Carbon Dioxide Level 26 Anion Gap 9 Blood Urea Nitrogen 12 Creatinine 0.31 L Est Glomerular > 60 Filtrat Rate mL/min Glucose Level 102 Calcium Level 9.1 Phosphorus Level 5.4 #H Magnesium Level 1.6 L Test 07/04/18 17:02 Bedside Glucose 282 H Home Meds Unable to Obtain Active Prescriptions or Reported Meds Medications Current Medications Ondansetron HCl (Zofran Inj) 4 mg Q6H PRN IV NAUSEA AND/OR VOMITING Last administered on 07/04/18 08:46; Admin Dose 4 MG; Start 06/09/18 at 00:30 Ipratropium [place] (Atrovent 0.02% (Neb)) 0.5 mg Q2H RESP THERAPY PRN NEB SHORTNESS OF BREATH Last administered on 06/14/18 21:38; Admin Dose 0.5 MG; Start 06/09/18 at 00:30 Acetaminophen (Tylenol Liquid) 650 mg Q6H PRN PO PAIN LEVEL 1-3 OR FEVER Last administered on 06/29/18 05:58; Admin Dose 650 MG; Start 06/09/18 at 00:30 Docusate Sodium (Colace) 100 mg Q12H PRN PO CONSTIPATION Last administered on 06/29/18 05:59; Admin Dose 100 MG; Start 06/09/18 at 00:30 Bisacodyl (Dulcolax) 5 mg DAILY PRN PO CONSTIPATION Last administered on 06/29/18 05:58; Admin Dose 5 MG; Start 06/09/18 at 00:30 Pantoprazole (Protonix Tab) 40 mg DAILY@06 PO Last administered on 07/04/18 05:40; Admin Dose 40 MG; Start 06/09/18 at 06:00 Diagnostic Test (Pha) (Accu-Chek) 1 ea 02 XX Last administered on 07/01/18at 02:00; Admin Dose 1 EA; Start 06/10/18 at 02:00 Insulin Aspart (Novolog Insulin Pen) NOVOLOG *MILD* ALGORITHM WITH MEALS BEDTIME SC Last administered on 07/04/18 17:06; Admin Dose 4 UNIT; Start 06/09/18 at 18:00 Miscellaneous Information 1 ea NOTE XX ; Start 06/09/18 at 14:30 Glucose (Glutose) 15 gm Q15M PRN PO DECREASED GLUCOSE; Start 06/09/18 at 14:30 Glucose (Glutose) 22.5 gm Q15M PRN PO DECREASED GLUCOSE; Start 06/09/18 at 14:30 Dextrose (D50w Syringe) 25 ml Q15M PRN IV DECREASED GLUCOSE Last administered on 06/29/18at 12:11; Admin Dose 25 ML; Start 06/09/18 at 14:30 Dextrose (D50w Syringe) 50 ml Q15M PRN IV DECREASED GLUCOSE; Start 06/09/18 at 14:30 Glucagon (Glucagen) 1 mg Q15M PRN IM DECREASED GLUCOSE; Start 06/09/18 at 14:30 Glucose (Glutose) 15 gm Q15M PRN BUCCAL DECREASED GLUCOSE; Start 06/09/18 at 14:30 Ferrous Sulfate (Ferrous Sulfate (Ec)) 325 mg DAILY PO Last administered on 07/04/18 08:41; Admin Dose 325 MG; Start 06/13/18 at 10:30; Stop 08/12/18 at 10:29 Levalbuterol (Xopenex Neb) 1.25 mg Q6H RESP THERAPY PRN HHN sob/wheezing Last administered on 06/14/18at 21:38; Admin Dose 1.25 MG; Start 06/14/18 at 09:00 Guaifenesin/ Dextromethorphan (Mucinex Dm) 1 tab BID PO Last administered on 07/04/18 08:41; Admin Dose 1 TAB; Start 06/14/18 at 09:30 Metformin HCl (Glucophage) 1,000 mg BID WITH MEALS PO Last administered on 07/04/18at 17:07; Admin Dose 1,000 MG; Start 06/16/18 at 18:00 Ascorbic Acid (Vitamin C) 500 mg DAILY PO Last administered on 07/04/18 08:41; Admin Dose 500 MG; Start 06/17/18 at 09:00; Stop 08/16/18 at 08:59 Guaifenesin/ Codeine Phosphate (Robitussin Ac Liquid Cup) 5 ml Q4H PRN PO cough Last administered on 06/18/18 20:25; Admin Dose 5 ML; Start 06/18/18 at 12:00 Rifampin (Rifampin) 600 mg DAILY PO Last administered on 07/04/18 08:41; Admin Dose 600 MG; Start 06/20/18 at 14:30 Glimepiride (Amaryl) 4 mg QHS PO Last administered on 07/03/18 21:14; Admin Dose 4 MG; Start 06/25/18 at 21:00 Glimepiride (Amaryl) 2 mg AC BREAKFAST PO Last administered on 07/04/18 08:41; Admin Dose 2 MG; Start 06/26/18 at 07:00 Vancomycin HCl (Vanco Iv Per Pharmacy) VANCOMYCIN PER PHARMACY PER PROTOCOL XX ; Start 06/28/18 at 16:00 IV Flush (NS 10 ml) 10 ml PRN PRN IV FLUSH LINE; Start 06/28/18 at 18:30 Magnesium Citrate (Citroma) 300 ml DAILY PRN PO constipation Last administered on 07/01/18 23:15; Admin Dose 300 ML; Start 06/29/18 at 15:00 Zolpidem Tartrate (Ambien) 10 mg HS PRN PO insomnia Last administered on 21:55; Admin Dose 10 MG; Start 06/29/18 at 17:00 Multi-Ingredient Ointment (Eucerin Cream) 1 applic BID TOP Last administered on 07/04/18 08:47; Admin Dose 1 APPLIC; Start 07/01/18 at 21:30 Insulin Human NPH (Humulin N) 12 unit DAILY@20 SC Last administered on 07/03/18 21:14; Admin Dose 12 UNIT; Start 07/02/18 at 20:00 Vancomycin HCl 1.25 gm/Sodium Chloride 250 ml @ 83.333 mls/ hr Q8H IVPB Last administered on 07/04/18 12:32; Admin Dose 83.333 MLS/HR; Start 07/02/18 at 11:00 Miscellaneous Information (*Rx Drug Level Order Reminder*) 1 0200 ONCE XX ; Start 07/05/18 at 02:00; Stop 07/05/18 at 02:01 Assessment/Plan Hospital Course (Demo Recall) 1. MRSA bacteremia, with a possible vegetation on tricuspid valve on the transesophageal echocardiogram 2. Pneumonia 3. Status post DKA 4. Diabetes 5. Anemia 6. Homelessness Recommendations: Diabetic management as per internal medicine and endocrine solar consultant. Antibiotic management as per infectious disease recommendations. thank you for this referral. We will continue to follow along with you as needed ABDI JAY MD [facility] ABDI JAY MD Jul 04, 2018 18:25
[2018-07-04 20:00] VITALS: BP 106/65; PULSE 102; RESP 17
[2018-07-04] MEDS: NPH, HUMAN INSULIN ISOPHANE 3ML VIAL SC SCH (20:55)
[2018-07-04] MEDS: GLIMEPIRIDE 4 MG TAB PO SCH (20:57)
[2018-07-04] MEDS: MAGNESIUM CITRATE 300 ML BTL PO PRN (21:01)
[2018-07-05] MEDS: ACCU-CHEK XX SCH (01:50)
[2018-07-05 02:15] VITALS: BP 96/63; PULSE 107; RESP 17
[2018-07-05] MEDS: VANCOMYCIN HCL 1.25 GM in SOD CHLORIDE 0.9% 250 ML IVPB SCH (03:25)
[2018-07-05] MEDS: PANTOPRAZOLE (EC) 40 MG TAB PO SCH (05:10)
[2018-07-05] MEDS: GLIMEPIRIDE 2 MG TAB PO SCH (07:30)
[2018-07-05 08:00] VITALS: BP 110/64; PULSE 76; RESP 20
[2018-07-05] MEDS: INSULIN ASPART [NOVOLOG] 3 ML PEN SC SCH ×4 (08:00→20:40)
[2018-07-05] MEDS: metFORMIN 500 MG TAB PO SCH ×2 (08:00→17:06)
[2018-07-05] MEDS: ASCORBIC ACID 500 MG TAB PO SCH (08:27)
[2018-07-05] MEDS: GUAIFENESIN/DM (SR) TAB PO SCH ×2 (08:27→20:37)
[2018-07-05] MEDS: FERROUS SULFATE (EC) 325 MG TAB PO SCH (08:27)
[2018-07-05] MEDS: RIFAMPIN 300 MG CAP PO SCH (08:28)
[2018-07-05] MEDS: EUCERIN 113 GM CR TOP SCH ×2 (08:29→20:41)
[2018-07-05] MEDS: ONDANSETRON 4 MG INJ IV PRN (08:33)
--- NOTE | 2018-07-05 09:22 | CONS ---
Consult Date/Type/Reason Admit Date/Time Jun 08, 2018 at 23:53 Initial Consult Date 06/26/18 Type of Consultation: cv Requesting Provider: HAYDEE RAYO Date/Time of Note DATE: 07/05/18 TIME: 09:21 Subjective Cardiology follow-up progress Subjective: Discussed with the staff . pt is off tele now Patient is in isolation no report of chest pain breathing is better Objective: General: no acute distress HEENT: NC/AT. pupils are equal. round. NECK: NO JVD. no stridor. CV: RRR. systolic murmur; no gallop or rubs. PULM: no wheezing . GI: SOFT, NT, ND, no rebound or guarding Extremity: No significant B/L LE edema. no clubbing. neuro: Sleeping comfortably Psych: calm and pleasant rectal: deferred Derm: Multiple tattoos Repeat echocardiogram on 06/26/2018 shows: Normal left ventricular systolic function. Normal left ventricular cavity size. Left ventricular wall thickness upper limits of normal. Ejection fraction is visually estimated at 60 %. Tissue Doppler/Mitral Doppler indices are consistent with impaired relaxation (Stage I diastolic dysfunction). Normal right ventricular size. Normal right ventricular systolic function. The left atrium is normal in size. The right atrium is normal in size. No significant valvular stenosis or regurgitation seen. Normal pericardium with no significant pericardial effusion. BITA 06/28/18 Normal LV size and systolic function with trace MR and TR Echo density/thickening of the tricuspid valve is noted. Vegetation cannot be ruled out Objective Vitals Vital Signs Date Temp Pulse Resp B/P (MAP) Pulse Ox O2 O2 Flow FiO2 Time Delivery Rate 07/05/18 98.6 76 20 110/64 94 08:00 (79) Intake and Output 07/04/18 07/04/18 07/05/18 1515:00 23:00 07:00 IntakeIntake Total 840 ml 850 ml 250 ml BalanceBalance 840 ml 850 ml 250 ml Results/Medications Result Diagram: 07/04/18 0548 07/04/18 0548 Results 24 hrs Laboratory Tests Test 07/04/18 12:02 07/04/18 17:02 07/04/18 20:50 07/05/18 01:49 Bedside Glucose 149 282 H 236 H 110 Test 07/05/18 02:16 07/05/18 08:16 Vancomycin Level 21.9 *H Trough Bedside Glucose 99 Home Meds Unable to Obtain Active Prescriptions or Reported Meds Medications Current Medications Ondansetron HCl (Zofran Inj) 4 mg Q6H PRN IV NAUSEA AND/OR VOMITING Last administered on 07/05/18at 08:33; Admin Dose 4 MG; Start 06/09/18 at 00:30 Ipratropium [place] (Atrovent 0.02% (Neb)) 0.5 mg Q2H RESP THERAPY PRN NEB SHORTNESS OF BREATH Last administered on 06/14/18at 21:38; Admin Dose 0.5 MG; Start 06/09/18 at 00:30 Acetaminophen (Tylenol Liquid) 650 mg Q6H PRN PO PAIN LEVEL 1-3 OR FEVER Last administered on 06/29/18 05:58; Admin Dose 650 MG; Start 06/09/18 at 00:30 Docusate Sodium (Colace) 100 mg Q12H PRN PO CONSTIPATION Last administered on 06/29/18 05:59; Admin Dose 100 MG; Start 06/09/18 at 00:30 Bisacodyl (Dulcolax) 5 mg DAILY PRN PO CONSTIPATION Last administered on 06/29/18 05:58; Admin Dose 5 MG; Start 06/09/18 at 00:30 Pantoprazole (Protonix Tab) 40 mg DAILY@06 PO Last administered on 07/05/18 05:10; Admin Dose 40 MG; Start 06/09/18 at 06:00 Diagnostic Test (Pha) (Accu-Chek) 1 ea 02 XX Last administered on 07/05/18at 01:50; Admin Dose 1 EA; Start 06/10/18 at 02:00 Insulin Aspart (Novolog Insulin Pen) NOVOLOG *MILD* ALGORITHM WITH MEALS BEDTIME SC Last administered on 07/04/18at 20:57; Admin Dose 2 UNIT; Start 06/09/18 at 18:00 Miscellaneous Information 1 ea NOTE XX ; Start 06/09/18 at 14:30 Glucose (Glutose) 15 gm Q15M PRN PO DECREASED GLUCOSE; Start 06/09/18 at 14:30 Glucose (Glutose) 22.5 gm Q15M PRN PO DECREASED GLUCOSE; Start 06/09/18 at 14:30 Dextrose (D50w Syringe) 25 ml Q15M PRN IV DECREASED GLUCOSE Last administered on 06/29/18 12:11; Admin Dose 25 ML; Start 06/09/18 at 14:30 Dextrose (D50w Syringe) 50 ml Q15M PRN IV DECREASED GLUCOSE; Start 06/09/18 at 14:30 Glucagon (Glucagen) 1 mg Q15M PRN IM DECREASED GLUCOSE; Start 06/09/18 at 14:30 Glucose (Glutose) 15 gm Q15M PRN BUCCAL DECREASED GLUCOSE; Start 06/09/18 at 14:30 Ferrous Sulfate (Ferrous Sulfate (Ec)) 325 mg DAILY PO Last administered on 07/05/18 08:27; Admin Dose 325 MG; Start 06/13/18 at 10:30; Stop 08/12/18 at 10:29 Levalbuterol (Xopenex Neb) 1.25 mg Q6H RESP THERAPY PRN HHN sob/wheezing Last administered on 06/14/18 21:38; Admin Dose 1.25 MG; Start 06/14/18 at 09:00 Guaifenesin/ Dextromethorphan (Mucinex Dm) 1 tab BID PO Last administered on 07/05/18 08:27; Admin Dose 1 TAB; Start 06/14/18 at 09:30 Metformin HCl (Glucophage) 1,000 mg BID WITH MEALS PO Last administered on 07/04/18 17:07; Admin Dose 1,000 MG; Start 06/16/18 at 18:00 Ascorbic Acid (Vitamin C) 500 mg DAILY PO Last administered on 07/05/18 08:27; Admin Dose 500 MG; Start 06/17/18 at 09:00; Stop 08/16/18 at 08:59 Guaifenesin/ Codeine Phosphate (Robitussin Ac Liquid Cup) 5 ml Q4H PRN PO cough Last administered on 06/18/18 20:25; Admin Dose 5 ML; Start 06/18/18 at 12:00 Rifampin (Rifampin) 600 mg DAILY PO Last administered on 07/05/18 08:28; Admin Dose 600 MG; Start 06/20/18 at 14:30 Glimepiride (Amaryl) 4 mg QHS PO Last administered on 07/04/18 20:57; Admin Dose 4 MG; Start 06/25/18 at 21:00 Glimepiride (Amaryl) 2 mg AC BREAKFAST PO Last administered on 07/04/18 08:41; Admin Dose 2 MG; Start 06/26/18 at 07:00 Vancomycin HCl (Vanco Iv Per Pharmacy) VANCOMYCIN PER PHARMACY PER PROTOCOL XX ; Start 06/28/18 at 16:00 IV Flush (NS 10 ml) 10 ml PRN PRN IV FLUSH LINE; Start 06/28/18 at 18:30 Magnesium Citrate (Citroma) 300 ml DAILY PRN PO constipation Last administered on 07/04/18 21:01; Admin Dose 300 ML; Start 06/29/18 at 15:00 Zolpidem Tartrate (Ambien) 10 mg HS PRN PO insomnia Last administered on 06/29/18 21:55; Admin Dose 10 MG; Start 06/29/18 at 17:00 Multi-Ingredient Ointment (Eucerin Cream) 1 applic BID TOP Last administered on 07/05/18 08:29; Admin Dose 1 APPLIC; Start 07/01/18 at 21:30 Insulin Human NPH (Humulin N) 12 unit DAILY@20 SC Last administered on 07/04/18 20:55; Admin Dose 12 UNIT; Start 07/02/18 at 20:00 Vancomycin HCl 250 ml @ 125 mls/hr Q8H IVPB ; Start 07/05/18 at 15:00 Assessment/Plan Hospital Course (Demo Recall) 1. MRSA bacteremia, with a possible vegetation on tricuspid valve on the transesophageal echocardiogram 2. Pneumonia 3. Status post DKA 4. Diabetes 5. Anemia 6. Homelessness Recommendations: Diabetic management as per internal medicine and endocrine informatics consultant. Antibiotic management as per infectious disease recommendations. thank you for this referral. We will continue to follow along with you as curtis JAY MD [facility] ABDI JAY MD Jul 05, 2018 09:22
--- NOTE | 2018-07-05 13:07 | CONS ---
Assessment/Plan Assessment/Plan Hospital Course (Demo Recall) Alert, feels good, no fevers AFB smears negative 3 sets, cocci neg Microbiology: Blood culture on June 08 grew MRSA, repeat blood cultures negative, sputum culture on June 16 grew Talia albicans and MRSA. Serology for HIV negative Antimicrobials: Rifampin Vanco Physical examination: Well-developed middle-aged woman who is alert in no distress. Head atraumatic normocephalic sclera nonicteric. Neck is supple chest rise symmetrical breath sounds diminished bases. Heart S1-S2. Abdomen soft bowel sounds present. Extremities without cyanosis. Assessment: 1. S/p sepsis 2. 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 Necrotizing MRSA pneumonia with areas of cavitation per CT ?septic emboli 4. Homelessness 5. Poorly controlled diabetes 6. Meth amphetamine abuse Plan: Remains stable, pending discharge arrangements on IV Vanco to complete total of 8 weeks, last dose August 05 Consultation Date/Type/Reason Admit Date/Time Jun 08, 2018 at 23:53 Initial Consult Date Type of Consult id Requesting Provider: HAYDEE RAYO Date/Time of Note DATE: 07/05/18 TIME: 13:06 Exam/Review of Systems Exam Vitals Vital Signs Date Temp Pulse Resp B/P (MAP) Pulse Ox O2 O2 Flow FiO2 Time Delivery Rate 07/05/18 98.6 76 20 110/64 94 08:00 (79) Intake and Output 07/04/18 07/04/18 07/05/18 1515:00 23:00 07:00 IntakeIntake Total 840 ml 850 ml 250 ml BalanceBalance 840 ml 850 ml 250 ml Results Result Diagram: 07/04/18 0548 07/04/18 0548 Results 24hrs Laboratory Tests Test 07/04/18 17:02 07/04/18 20:50 07/05/18 01:49 07/05/18 02:16 Bedside Glucose 282 H 236 H 110 Vancomycin Level 21.9 *H Trough Test 07/05/18 08:16 07/05/18 11:54 Bedside Glucose 99 189 Medications Medication Current Medications Ondansetron HCl (Zofran Inj) 4 mg Q6H PRN IV NAUSEA AND/OR VOMITING Last administered on 07/05/18at 08:33; Admin Dose 4 MG; Start 06/09/18 at 00:30 Ipratropium [place] (Atrovent 0.02% (Neb)) 0.5 mg Q2H RESP THERAPY PRN NEB SHORTNESS OF BREATH Last administered on 06/14/18at 21:38; Admin Dose 0.5 MG; Start 06/09/18 at 00:30 Acetaminophen (Tylenol Liquid) 650 mg Q6H PRN PO PAIN LEVEL 1-3 OR FEVER Last administered on 06/29/18 05:58; Admin Dose 650 MG; Start 06/09/18 at 00:30 Docusate Sodium (Colace) 100 mg Q12H PRN PO CONSTIPATION Last administered on 06/29/18 05:59; Admin Dose 100 MG; Start 06/09/18 at 00:30 Bisacodyl (Dulcolax) 5 mg DAILY PRN PO CONSTIPATION Last administered on 06/29/18 05:58; Admin Dose 5 MG; Start 06/09/18 at 00:30 Pantoprazole (Protonix Tab) 40 mg DAILY@06 PO Last administered on 07/05/18 05:10; Admin Dose 40 MG; Start 06/09/18 at 06:00 Diagnostic Test (Pha) (Accu-Chek) 1 ea 02 XX Last administered on 07/05/18at 01:50; Admin Dose 1 EA; Start 06/10/18 at 02:00 Insulin Aspart (Novolog Insulin Pen) NOVOLOG *MILD* ALGORITHM WITH MEALS BEDTIME SC Last administered on 07/05/18at 11:56; Admin Dose 2 UNIT; Start 06/09/18 at 18:00 Miscellaneous Information 1 ea NOTE XX ; Start 06/09/18 at 14:30 Glucose (Glutose) 15 gm Q15M PRN PO DECREASED GLUCOSE; Start 06/09/18 at 14:30 Glucose (Glutose) 22.5 gm Q15M PRN PO DECREASED GLUCOSE; Start 06/09/18 at 14:30 Dextrose (D50w Syringe) 25 ml Q15M PRN IV DECREASED GLUCOSE Last administered on 06/29/18at 12:11; Admin Dose 25 ML; Start 06/09/18 at 14:30 Dextrose (D50w Syringe) 50 ml Q15M PRN IV DECREASED GLUCOSE; Start 06/09/18 at 14:30 Glucagon (Glucagen) 1 mg Q15M PRN IM DECREASED GLUCOSE; Start 06/09/18 at 14:30 Glucose (Glutose) 15 gm Q15M PRN BUCCAL DECREASED GLUCOSE; Start 06/09/18 at 14:30 Ferrous Sulfate (Ferrous Sulfate (Ec)) 325 mg DAILY PO Last administered on 07/05/18 08:27; Admin Dose 325 MG; Start 06/13/18 at 10:30; Stop 08/12/18 at 10:29 Levalbuterol (Xopenex Neb) 1.25 mg Q6H RESP THERAPY PRN HHN sob/wheezing Last administered on 06/14/18at 21:38; Admin Dose 1.25 MG; Start 06/14/18 at 09:00 Guaifenesin/ Dextromethorphan (Mucinex Dm) 1 tab BID PO Last administered on 07/05/18 08:27; Admin Dose 1 TAB; Start 06/14/18 at 09:30 Metformin HCl (Glucophage) 1,000 mg BID WITH MEALS PO Last administered on 17:07; Admin Dose 1,000 MG; Start 06/16/18 at 18:00 Ascorbic Acid (Vitamin C) 500 mg DAILY PO Last administered on 07/05/18 08:27; Admin Dose 500 MG; Start 06/17/18 at 09:00; Stop 08/16/18 at 08:59 Guaifenesin/ Codeine Phosphate (Robitussin Ac Liquid Cup) 5 ml Q4H PRN PO cough Last administered on 06/18/18 20:25; Admin Dose 5 ML; Start 06/18/18 at 12:00 Rifampin (Rifampin) 600 mg DAILY PO Last administered on 07/05/18 08:28; Admin Dose 600 MG; Start 06/20/18 at 14:30 Glimepiride (Amaryl) 4 mg QHS PO Last administered on 07/04/18 20:57; Admin Dose 4 MG; Start 06/25/18 at 21:00 Glimepiride (Amaryl) 2 mg AC BREAKFAST PO Last administered on 07/04/18 08:41; Admin Dose 2 MG; Start 06/26/18 at 07:00 Vancomycin HCl (Vanco Iv Per Pharmacy) VANCOMYCIN PER PHARMACY PER PROTOCOL XX ; Start 06/28/18 at 16:00 IV Flush (NS 10 ml) 10 ml PRN PRN IV FLUSH LINE; Start 06/28/18 at 18:30 Magnesium Citrate (Citroma) 300 ml DAILY PRN PO constipation Last administered on 07/04/18 21:01; Admin Dose 300 ML; Start 06/29/18 at 15:00 Zolpidem Tartrate (Ambien) 10 mg HS PRN PO insomnia Last administered on 06/29/18 21:55; Admin Dose 10 MG; Start 06/29/18 at 17:00 Multi-Ingredient Ointment (Eucerin Cream) 1 applic BID TOP Last administered on 07/05/18at 08:29; Admin Dose 1 APPLIC; Start 07/01/18 at 21:30 Insulin Human NPH (Humulin N) 12 unit DAILY@20 SC Last administered on 07/04/18at 20:55; Admin Dose 12 UNIT; Start 07/02/18 at 20:00 Vancomycin HCl 250 ml @ 125 mls/hr Q12H IVPB ; Start 07/05/18 at 15:00 JOSE GOVEA NP Jul 05, 2018 13:07
[2018-07-05 14:00] VITALS: BP 114/62; PULSE 66; RESP 18
[2018-07-05] MEDS ORDERED: VANCOMYCIN 1 GM 250 ML IVPB SCH (15:00)
--- NOTE | 2018-07-05 15:32 | PN ---
Date/Time of Note Date/Time of Note DATE: 07/05/18 TIME: 15:30 Assessment/Plan VTE Prophylaxis Risk score (from Ns)>0 risk: 2 SCD applied (from [facility] [place]): No SCD contraindicated: low risk/ambulating Pharmacological prophylaxis: NA/contraindicated Pharm contraindication: low risk/ambulating Lines/Catheters IV Catheter Type (from [facility]): PICC Line Central line still needed: Yes Urinary Cath still in place: No Assessment/Plan Assessment/Plan 1. ?Endocarditis with possible vegetation on tricuspid valve - Cardiology on board and recommendations appreciated. BITA performed with thickening/densities on tricuspid valve. Unable to rule out vegetation. Will treat for endocarditis in setting of MRSA bacteremia and hx drug use - ID on board and appreciate recommendations. Will need antibiotics until 08/05 for a total of 8 weeks 2. MRSA bacteremia - Repeat blood culture negative. Remains afebrile with nl WBC. - ID on board and appreciate recommendations. Continue on current antibiotics 3. Poorly controlled diabetes- improved - A1c noted - sugars remain controlled - Endocrinology on board and appreciate recommendations. Continue on current insulin and glimepiride. 4. Extensive bilateral multilobar pneumonia - Patient found with MRSA in sputum and CT scan showing cavitating lesions but improvement in bilateral infiltrate - Pulm on board and continue current treatment. Cocci studies. After review of recent CT scan concern for septic emboli. BITA performed - Repeat CT scan performed this am showing "Multifocal bilateral areas of pneumonia are again present and have diminished in overall size however there is interval development of multiple foci of lucencies within the areas of consolidation suggestive for bronchiectasis or developing small cavitary lesions." - ID recommendations appreciated 5. Homelessness - SW on board 6. History of meth abuse - Patient states last use was 2 weeks prior to admission. Counseled on cessation. 7. Tobacco use - Cessation advised. 8. Iron Deficient anemia. - Continue oral iron. - H&H stable. 9. Mild asthma. - Currently stable - nebs PRN 10. Disposition - Medically stable for discharge once accepted to SNF Result Diagram: 07/04/18 0548 07/04/18 0548 Results 24hrs Laboratory Tests Test 07/04/18 17:02 07/04/18 20:50 07/05/18 01:49 07/05/18 02:16 Bedside Glucose 282 H 236 H 110 Vancomycin Level 21.9 *H Trough Test 07/05/18 08:16 4/17/19 11:54 Bedside Glucose 99 189 Subjective 24 Hr Interval Summary Free Text/Dictation Patient resting and in no acute distress. no overnight events. Exam/Review of Systems Exam Vitals Vital Signs Date Temp Pulse Resp B/P (MAP) Pulse Ox O2 O2 Flow FiO2 Time Delivery Rate 07/05/18 98.6 66 18 114/62 96 14:00 (79) Intake and Output 07/04/18 07/04/18 07/05/18 1515:00 23:00 07:00 IntakeIntake Total 840 ml 850 ml 250 ml BalanceBalance 840 ml 850 ml 250 ml Exam General: Patient is laying in bed and answers questions appropriately Respiratory: Diminished breath sounds. no wheezing Cardiovascular: regular rate and rhythm, no obvious murmurs Gastrointestinal: soft, non-tender to palpation, bowel sounds heard. Neurological: Moves all extremities spontaneously Skin: No new skin lesions Results Results 24hrs Laboratory Tests Test 07/04/18 17:02 07/04/18 20:50 07/05/18 01:49 07/05/18 02:16 Bedside Glucose 282 H 236 H 110 Vancomycin Level 21.9 *H Trough Test 07/05/18 08:16 07/05/18 11:54 Bedside Glucose 99 189 Medications Medication Current Medications Ondansetron HCl (Zofran Inj) 4 mg Q6H PRN IV NAUSEA AND/OR VOMITING Last administered on 07/05/18at 08:33; Admin Dose 4 MG; Start 06/09/18 at 00:30 Ipratropium [place] (Atrovent 0.02% (Neb)) 0.5 mg Q2H RESP THERAPY PRN NEB SHORTNESS OF BREATH Last administered on 06/14/18at 21:38; Admin Dose 0.5 MG; Start 06/09/18 at 00:30 Acetaminophen (Tylenol Liquid) 650 mg Q6H PRN PO PAIN LEVEL 1-3 OR FEVER Last administered on 06/29/18at 05:58; Admin Dose 650 MG; Start 06/09/18 at 00:30 Docusate Sodium (Colace) 100 mg Q12H PRN PO CONSTIPATION Last administered on 06/29/18at 05:59; Admin Dose 100 MG; Start 06/09/18 at 00:30 Bisacodyl (Dulcolax) 5 mg DAILY PRN PO CONSTIPATION Last administered on 06/29/18 05:58; Admin Dose 5 MG; Start 06/09/18 at 00:30 Pantoprazole (Protonix Tab) 40 mg DAILY@06 PO Last administered on 07/05/18at 05:10; Admin Dose 40 MG; Start 06/09/18 at 06:00 Diagnostic Test (Pha) (Accu-Chek) 1 ea 02 XX Last administered on 07/05/18at 0 1:50; Admin Dose 1 EA; Start 06/10/18 at 02:00 Insulin Aspart (Novolog Insulin Pen) NOVOLOG *MILD* ALGORITHM WITH MEALS BEDTIME SC Last administered on 07/05/18 11:56; Admin Dose 2 UNIT; Start 05/20 05/09 at 18:00 Miscellaneous Information 1 ea NOTE XX ; Start 06/09/18 at 14:30 Glucose (Glutose) 15 gm Q15M PRN PO DECREASED GLUCOSE; Start 06/09/18 at 14:30 Glucose (Glutose) 22.5 gm Q15M PRN PO DECREASED GLUCOSE; Start 06/09/18 at 14:30 Dextrose (D50w Syringe) 25 ml Q15M PRN IV DECREASED GLUCOSE Last administered on 06/29/18at 12:11; Admin Dose 25 ML; Start 06/09/18 at 14:30 Dextrose (D50w Syringe) 50 ml Q15M PRN IV DECREASED GLUCOSE; Start 06/09/18 at 14:30 Glucagon (Glucagen) 1 mg Q15M PRN IM DECREASED GLUCOSE; Start 06/09/18 at 14:30 Glucose (Glutose) 15 gm Q15M PRN BUCCAL DECREASED GLUCOSE; Start 06/09/18 at 14:30 Ferrous Sulfate (Ferrous Sulfate (Ec)) 325 mg DAILY PO Last administered on 07/05/18at 08:27; Admin Dose 325 MG; Start 06/13/18 at 10:30; Stop 08/12/18 at 10:29 Levalbuterol (Xopenex Neb) 1.25 mg Q6H RESP THERAPY PRN HHN sob/wheezing Last administered on 06/14/18at 21:38; Admin Dose 1.25 MG; Start 06/14/18 at 09:00 Guaifenesin/ Dextromethorphan (Mucinex Dm) 1 tab BID PO Last administered on 07/05/18 08:27; Admin Dose 1 TAB; Start 06/14/18 at 09:30 Metformin HCl (Glucophage) 1,000 mg BID WITH MEALS PO Last administered on 07/04/18 17:07; Admin Dose 1,000 MG; Start 06/16/18 at 18:00 Ascorbic Acid (Vitamin C) 500 mg DAILY PO Last administered on 07/05/18 08:27; Admin Dose 500 MG; Start 06/17/18 at 09:00; Stop 08/16/18 at 08:59 Guaifenesin/ Codeine Phosphate (Robitussin Ac Liquid Cup) 5 ml Q4H PRN PO cough Last administered on 06/18/18 20:25; Admin Dose 5 ML; Start 06/18/18 at 12:00 Rifampin (Rifampin) 600 mg DAILY PO Last administered on 07/05/18 08:28; Admin Dose 600 MG; Start 06/20/18 at 14:30 Glimepiride (Amaryl) 4 mg QHS PO Last administered on 07/04/18 20:57; Admin Dose 4 MG; Start 06/25/18 at 21:00 Glimepiride (Amaryl) 2 mg AC BREAKFAST PO Last administered on 07/04/18 08:41; Admin Dose 2 MG; Start 06/26/18 at 07:00 Vancomycin HCl (Vanco Iv Per Pharmacy) VANCOMYCIN PER PHARMACY PER PROTOCOL XX ; Start 06/28/18 at 16:00 IV Flush (NS 10 ml) 10 ml PRN PRN IV FLUSH LINE; Start 06/28/18 at 18:30 Magnesium Citrate (Citroma) 300 ml DAILY PRN PO constipation Last administered on 07/04/18 21:01; Admin Dose 300 ML; Start 06/29/18 at 15:00 Zolpidem Tartrate (Ambien) 10 mg HS PRN PO insomnia Last administered on 06/29/18 21:55; Admin Dose 10 MG; Start 06/29/18 at 17:00 Multi-Ingredient Ointment (Eucerin Cream) 1 applic BID TOP Last administered on 07/05/18 08:29; Admin Dose 1 APPLIC; Start 07/01/18 at 21:30 Insulin Human NPH (Humulin N) 12 unit DAILY@20 SC Last administered on 07/04/18 20:55; Admin Dose 12 UNIT; Start 07/02/18 at 20:00 Vancomycin HCl 250 ml @ 125 mls/hr Q12H IVPB ; Start 07/05/18 at 15:00 DAVE HAMMONDS MD Jul 05, 2018 15:32
--- NOTE | 2018-07-05 15:38 | PDOCDIS ---
Discharge Instructions DIAGNOSIS Discharge Diagnosis 1. ?Endocarditis with possible vegetation on tricuspid valve 2. MRSA bacteremia 3. Poorly controlled diabetes- improved 4. Extensive bilateral multilobar pneumonia 5. Homelessness 6. History of meth abuse 7. Tobacco use 8. Iron Deficient anemia. 9. Mild asthma. CONDITION [id number] Patient Condition: [id number] Stable HOME CARE INSTRUCTIONS: [id number] Diet Instructions: [id number] Low Fat /Cholesterol [id number] Special Diet: [id number] low sugar, low carb diet ACTIVITY: [id number] Activity Restrictions: [id number] No Restrictions FOLLOW UP/APPOINTMENTS Follow-up Plan 1. Follow up with your PCP in 1 week. If you do not have one, it is best to call your insurance to find a provider 2. You will need to continue on antibiotics until August 05 3. You will need to continue on Glimepiride twice a day and Metformin twice a day as well as Insulin 12 units for proper glucose control 4. It is important to continue abstaining from any substance use 5. If experiencing any concerning symptoms, go to your closest emergency department DAVE HAMMONDS MD Jul 05, 2018 15:38
[2018-07-05] MEDS: VANCOMYCIN 1 GM 250 ML IVPB SCH (15:41)
[2018-07-05] MEDS ORDERED: ALTEPLASE (CATHFLO) 2 MG INJ CATHETER PRN (18:00)
[2018-07-05 19:48] VITALS: BP 99/67; PULSE 109; RESP 18
[2018-07-05] MEDS: GLIMEPIRIDE 4 MG TAB PO SCH (20:37)
[2018-07-05] MEDS: NPH, HUMAN INSULIN ISOPHANE 3ML VIAL SC SCH (20:39)
[2018-07-06] MEDS: ACCU-CHEK XX SCH (02:00)
[2018-07-06 02:13] VITALS: BP 111/74; PULSE 99; RESP 17
[2018-07-06] MEDS: VANCOMYCIN 1 GM 250 ML IVPB SCH (02:23)
[2018-07-06] MEDS: PANTOPRAZOLE (EC) 40 MG TAB PO SCH (05:29)
[2018-07-06] MEDS: GLIMEPIRIDE 2 MG TAB PO SCH (07:59)
[2018-07-06] MEDS: metFORMIN 500 MG TAB PO SCH ×2 (07:59→17:15)
[2018-07-06 08:00] VITALS: BP_SYST 118; BP_SYST 166; BP_DIAS 62; BP_DIAS 86; PULSE 76; PULSE 84; RESP 18; RESP 20
[2018-07-06] MEDS: INSULIN ASPART [NOVOLOG] 3 ML PEN SC SCH ×4 (08:01→21:04)
[2018-07-06] MEDS: GUAIFENESIN/DM (SR) TAB PO SCH ×2 (08:06→21:04)
[2018-07-06] MEDS: RIFAMPIN 300 MG CAP PO SCH (08:06)
[2018-07-06] MEDS: FERROUS SULFATE (EC) 325 MG TAB PO SCH (08:06)
[2018-07-06] MEDS: ASCORBIC ACID 500 MG TAB PO SCH (08:06)
[2018-07-06] MEDS: EUCERIN 113 GM CR TOP SCH ×2 (08:07→21:06)
[2018-07-06] MEDS: ONDANSETRON 4 MG INJ IV PRN (08:15)
--- NOTE | 2018-07-06 09:08 | CONS ---
Consult Date/Type/Reason Admit Date/Time Jun 08, 2018 at 23:53 Initial Consult Date 06/26/18 Type of Consultation: cv Requesting Provider: HAYDEE RAYO Date/Time of Note DATE: 07/06/18 TIME: 09:07 Subjective Cardiology follow-up progress Subjective: Discussed with the staff . pt is off tele now no report of chest pain breathing is better . less cough Objective: General: no acute distress HEENT: NC/AT. pupils are equal. round. NECK: NO JVD. no stridor. CV: RRR. systolic murmur; no gallop or rubs. PULM: no wheezing . GI: SOFT, NT, ND, no rebound or guarding Extremity: No significant LE edema. no clubbing. neuro: Sleeping comfortably Psych: calm and pleasant rectal: deferred Derm: Multiple tattoos Repeat echocardiogram on 06/26/2018 shows: Normal left ventricular systolic function. Normal left ventricular cavity size. Left ventricular wall thickness upper limits of normal. Ejection fraction is visually estimated at 60 %. Tissue Doppler/Mitral Doppler indices are consistent with impaired relaxation (Stage I diastolic dysfunction). Normal right ventricular size. Normal right ventricular systolic function. The left atrium is normal in size. The right atrium is normal in size. No significant valvular stenosis or regurgitation seen. Normal pericardium with no significant pericardial effusion. BITA 06/28/18 Normal LV size and systolic function with trace MR and TR Echo density/thickening of the tricuspid valve is noted. Vegetation cannot be ruled out Objective Vitals Vital Signs Date Temp Pulse Resp B/P (MAP) Pulse Ox O2 O2 Flow FiO2 Time Delivery Rate 07/06/18 98.8 76 18 118/62 96 08:00 (80) Intake and Output 07/05/18 07/05/18 07/06/18 1515:00 23:00 07:00 IntakeIntake Total 940 ml 500 ml 250 ml BalanceBalance 940 ml 500 ml 250 ml Results/Medications Result Diagram: 07/04/18 0548 07/04/18 0548 Results 24 hrs Laboratory Tests Test 07/05/18 11:54 07/05/18 16:58 07/05/18 20:35 07/06/18 07:58 Bedside Glucose 189 230 H 140 155 Medications Current Medications Ondansetron HCl (Zofran Inj) 4 mg Q6H PRN IV NAUSEA AND/OR VOMITING Last administered on 07/06/18 08:15; Admin Dose 4 MG; Start 06/09/18 at 00:30 Ipratropium [place] (Atrovent 0.02% (Neb)) 0.5 mg Q2H RESP THERAPY PRN NEB SHORTNESS OF BREATH Last administered on 06/14/18 21:38; Admin Dose 0.5 MG; Start 06/09/18 at 00:30 Acetaminophen (Tylenol Liquid) 650 mg Q6H PRN PO PAIN LEVEL 1-3 OR FEVER Last administered on 06/29/18 05:58; Admin Dose 650 MG; Start 06/09/18 at 00:30 Docusate Sodium (Colace) 100 mg Q12H PRN PO CONSTIPATION Last administered on 06/29/18 05:59; Admin Dose 100 MG; Start 06/09/18 at 00:30 Bisacodyl (Dulcolax) 5 mg DAILY PRN PO CONSTIPATION Last administered on 06/29/18 05:58; Admin Dose 5 MG; Start 06/09/18 at 00:30 Pantoprazole (Protonix Tab) 40 mg DAILY@06 PO Last administered on 07/06/18 05:29; Admin Dose 40 MG; Start 06/09/18 at 06:00 Diagnostic Test (Pha) (Accu-Chek) 1 ea 02 XX Last administered on 07/05/18 01:50; Admin Dose 1 EA; Start 06/10/18 at 02:00 Insulin Aspart (Novolog Insulin Pen) NOVOLOG *MILD* ALGORITHM WITH MEALS BEDTIME SC Last administered on 07/06/18 08:01; Admin Dose 1 UNIT; Start 06/09/18 at 18:00 Miscellaneous Information 1 ea NOTE XX ; Start 06/09/18 at 14:30 Glucose (Glutose) 15 gm Q15M PRN PO DECREASED GLUCOSE; Start 06/09/18 at 14:30 Glucose (Glutose) 22.5 gm Q15M PRN PO DECREASED GLUCOSE; Start 06/09/18 at 14:30 Dextrose (D50w Syringe) 25 ml Q15M PRN IV DECREASED GLUCOSE Last administered on 06/29/18 12:11; Admin Dose 25 ML; Start 06/09/18 at 14:30 Dextrose (D50w Syringe) 50 ml Q15M PRN IV DECREASED GLUCOSE; Start 06/09/18 at 14:30 Glucagon (Glucagen) 1 mg Q15M PRN IM DECREASED GLUCOSE; Start 06/09/18 at 14:30 Glucose (Glutose) 15 gm Q15M PRN BUCCAL DECREASED GLUCOSE; Start 06/09/18 at 14:30 Ferrous Sulfate (Ferrous Sulfate (Ec)) 325 mg DAILY PO Last administered on 07/06/18 08:06; Admin Dose 325 MG; Start 06/13/18 at 10:30; Stop 08/12/18 at 10:29 Levalbuterol (Xopenex Neb) 1.25 mg Q6H RESP THERAPY PRN HHN sob/wheezing Last administered on 06/14/18at 21:38; Admin Dose 1.25 MG; Start 06/14/18 at 09:00 Guaifenesin/ Dextromethorphan (Mucinex Dm) 1 tab BID PO Last administered on 07/06/18 08:06; Admin Dose 1 TAB; Start 06/14/18 at 09:30 Metformin HCl (Glucophage) 1,000 mg BID WITH MEALS PO Last administered on 07/06/18 07:59; Admin Dose 1,000 MG; Start 06/16/18 at 18:00 Ascorbic Acid (Vitamin C) 500 mg DAILY PO Last administered on 07/06/18 08:06; Admin Dose 500 MG; Start 06/17/18 at 09:00; Stop 08/16/18 at 08:59 Guaifenesin/ Codeine Phosphate (Robitussin Ac Liquid Cup) 5 ml Q4H PRN PO cough Last administered on 06/18/18 20:25; Admin Dose 5 ML; Start 06/18/18 at 12:00 Rifampin (Rifampin) 600 mg DAILY PO Last administered on 07/06/18 08:06; Admin Dose 600 MG; Start 06/20/18 at 14:30 Glimepiride (Amaryl) 4 mg QHS PO Last administered on 07/05/18 20:37; Admin Dose 4 MG; Start 06/25/18 at 21:00 Glimepiride (Amaryl) 2 mg AC BREAKFAST PO Last administered on 07/06/18 07:59; Admin Dose 2 MG; Start 06/26/18 at 07:00 Vancomycin HCl (Vanco Iv Per Pharmacy) VANCOMYCIN PER PHARMACY PER PROTOCOL XX ; Start 06/28/18 at 16:00 IV Flush (NS 10 ml) 10 ml PRN PRN IV FLUSH LINE; Start 06/28/18 at 18:30 Magnesium Citrate (Citroma) 300 ml DAILY PRN PO constipation Last administered on 07/04/18at 21:01; Admin Dose 300 ML; Start 06/29/18 at 15:00 Zolpidem Tartrate (Ambien) 10 mg HS PRN PO insomnia Last administered on 06/19 21:55; Admin Dose 10 MG; Start 06/29/18 at 17:00 Multi-Ingredient Ointment (Eucerin Cream) 1 applic BID TOP Last administered on 07/05/18 20:41; Admin Dose 1 APPLIC; Start 07/01/18 at 21:30 Insulin Human NPH (Humulin N) 12 unit DAILY@20 SC Last administered on 07/05/18 20:39; Admin Dose 12 UNIT; Start 07/02/18 at 20:00 Vancomycin HCl 250 ml @ 125 mls/hr Q12H IVPB Last administered on 07/06/18 02:23; Admin Dose 125 MLS/HR; Start 07/05/18 at 15:00 Alteplase, Recombinant (Cathflo (Activase)) 2 mg MAY REPEAT X1 PRN CATHETER IF CATHETER REMAINS OCCULUDED; Start 07/05/18 at 18:00 Assessment/Plan Hospital Course (Demo Recall) 1. MRSA bacteremia, with a possible vegetation on tricuspid valve on the transesophageal echocardiogram 2. Pneumonia 3. Status post DKA 4. Diabetes 5. Anemia 6. Homelessness Recommendations: Diabetic management as per internal medicine and endocrine sales consultant residential manager. Antibiotic management as per infectious disease recommendations. thank you for this referral. We will continue to follow along with you as needed ABDI JAY MD [facility] ABDI JAY MD Jul 06, 2018 09:08
--- NOTE | 2018-07-06 11:32 | CONS ---
Assessment/Plan Assessment/Plan Hospital Course (Demo Recall) Alert, feels good AFB smears negative 3 sets, cocci neg Microbiology: Blood culture on June 08 grew MRSA, repeat blood cultures negative, sputum culture on June 16 grew Talia albicans and MRSA. Serology for HIV negative Antimicrobials: Rifampin Vanco Physical examination: Well-developed middle-aged woman who is alert in no distress. Head atraumatic normocephalic sclera nonicteric. Neck is supple chest rise symmetrical breath sounds diminished bases. Heart S1-S2. Abdomen s oft bowel sounds present. Extremities without cyanosis. Assessment: 1. S/p sepsis 2. 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 Necrotizing MRSA pneumonia with areas of cavitation per CT ?septic emboli 4. Homelessness 5. Poorly controlled diabetes 6. Meth amphetamine abuse Plan: Remains stable, pending discharge arrangements on IV Vanco to complete total of 8 weeks, last dose August 05 Consultation Date/Type/Reason Admit Date/Time Jun 08, 2018 at 23:53 Initial Consult Date Type of Consult id Requesting Provider: HAYDEE RAYO Date/Time of Note DATE: 07/06/18 TIME: 11:32 Exam/Review of Systems Exam Vitals Vital Signs Date Temp Pulse Resp B/P (MAP) Pulse Ox O2 O2 Flow FiO2 Time Delivery Rate 07/06/18 98.8 76 18 118/62 96 08:00 (80) Intake and Output 07/05/18 07/05/18 07/06/18 1414:59 22:59 06:59 IntakeIntake Total 940 ml 500 ml 250 ml BalanceBalance 940 ml 500 ml 250 ml Results Result Diagram: 07/04/18 0548 07/04/18 0548 Results 24hrs Laboratory Tests Test 07/05/18 11:54 07/05/18 16:58 07/05/18 20:35 07/06/18 07:58 Bedside Glucose 189 230 H 140 155 Medications Medication Current Medications Ondansetron HCl (Zofran Inj) 4 mg Q6H PRN IV NAUSEA AND/OR VOMITING Last administered on 07/06/18at 08:15; Admin Dose 4 MG; Start 06/09/18 at 00:30 Ipratropium [place] (Atrovent 0.02% (Neb)) 0.5 mg Q2H RESP THERAPY PRN NEB SHORTNESS OF BREATH Last administered on 06/14/18at 21:38; Admin Dose 0.5 MG; Start 06/09/18 at 00:30 Acetaminophen (Tylenol Liquid) 650 mg Q6H PRN PO PAIN LEVEL 1-3 OR FEVER Last administered on 06/29/18 05:58; Admin Dose 650 MG; Start 06/09/18 at 00:30 Docusate Sodium (Colace) 100 mg Q12H PRN PO CONSTIPATION Last administered on 06/29/18 05:59; Admin Dose 100 MG; Start 06/09/18 at 00:30 Bisacodyl (Dulcolax) 5 mg DAILY PRN PO CONSTIPATION Last administered on 06/29/18 05:58; Admin Dose 5 MG; Start 06/09/18 at 00:30 Pantoprazole (Protonix Tab) 40 mg DAILY@06 PO Last administered on 07/06/18 05:29; Admin Dose 40 MG; Start 06/09/18 at 06:00 Diagnostic Test (Pha) (Accu-Chek) 1 ea 02 XX Last administered on 07/05/18at 01:50; Admin Dose 1 EA; Start 06/10/18 at 02:00 Insulin Aspart (Novolog Insulin Pen) NOVOLOG *MILD* ALGORITHM WITH MEALS BEDTIME SC Last administered on 07/06/18 08:01; Admin Dose 1 UNIT; Start 06/09/18 at 18:00 Miscellaneous Information 1 ea NOTE XX ; Start 06/09/18 at 14:30 Glucose (Glutose) 15 gm Q15M PRN PO DECREASED GLUCOSE; Start 06/09/18 at 14:30 Glucose (Glutose) 22.5 gm Q15M PRN PO DECREASED GLUCOSE; Start 06/09/18 at 14:30 Dextrose (D50w Syringe) 25 ml Q15M PRN IV DECREASED GLUCOSE Last administered on 06/29/18at 12:11; Admin Dose 25 ML; Start 06/09/18 at 14:30 Dextrose (D50w Syringe) 50 ml Q15M PRN IV DECREASED GLUCOSE; Start 06/09/18 at 14:30 Glucagon (Glucagen) 1 mg Q15M PRN IM DECREASED GLUCOSE; Start 06/09/18 at 14:30 Glucose (Glutose) 15 gm Q15M PRN BUCCAL DECREASED GLUCOSE; Start 06/09/18 at 14:30 Ferrous Sulfate (Ferrous Sulfate (Ec)) 325 mg DAILY PO Last administered on 07/06/18 08:06; Admin Dose 325 MG; Start 06/13/18 at 10:30; Stop 08/12/18 at 10:29 Levalbuterol (Xopenex Neb) 1.25 mg Q6H RESP THERAPY PRN HHN sob/wheezing Last administered on 06/14/18 21:38; Admin Dose 1.25 MG; Start 06/14/18 at 09:00 Guaifenesin/ Dextromethorphan (Mucinex Dm) 1 tab BID PO Last administered on 07/06/18 08:06; Admin Dose 1 TAB; Start 06/14/18 at 09:30 Metformin HCl (Glucophage) 1,000 mg BID WITH MEALS PO Last administered on 07/06/18 07:59; Admin Dose 1,000 MG; Start 06/16/18 at 18:00 Ascorbic Acid (Vitamin C) 500 mg DAILY PO Last administered on 07/06/18 08:06; Admin Dose 500 MG; Start 06/17/18 at 09:00; Stop 08/16/18 at 08:59 Guaifenesin/ Codeine Phosphate (Robitussin Ac Liquid Cup) 5 ml Q4H PRN PO cough Last administered on 06/18/18 20:25; Admin Dose 5 ML; Start 06/18/18 at 12:00 Rifampin (Rifampin) 600 mg DAILY PO Last administered on 07/06/18 08:06; Admin Dose 600 MG; Start 06/20/18 at 14:30 Glimepiride (Amaryl) 4 mg QHS PO Last administered on 07/05/18 20:37; Admin Dose 4 MG; Start 06/25/18 at 21:00 Glimepiride (Amaryl) 2 mg AC BREAKFAST PO Last administered on 07/06/18 07:59; Admin Dose 2 MG; Start 06/26/18 at 07:00 Vancomycin HCl (Vanco Iv Per Pharmacy) VANCOMYCIN PER PHARMACY PER PROTOCOL XX ; Start 06/28/18 at 16:00 IV Flush (NS 10 ml) 10 ml PRN PRN IV FLUSH LINE; Start 06/28/18 at 18:30 Magnesium Citrate (Citroma) 300 ml DAILY PRN PO constipation Last administered on 07/04/18 21:01; Admin Dose 300 ML; Start 06/29/18 at 15:00 Zolpidem Tartrate (Ambien) 10 mg HS PRN PO insomnia Last administered on 06/29/18at 21:55; Admin Dose 10 MG; Start 06/29/18 at 17:00 Multi-Ingredient Ointment (Eucerin Cream) 1 applic BID TOP Last administered on 07/05/18at 20:41; Admin Dose 1 APPLIC; Start 07/01/18 at 21:30 Insulin Human NPH (Humulin N) 12 unit DAILY@20 SC Last administered on 07/05/18at 20:39; Admin Dose 12 UNIT; Start 07/02/18 at 20:00 Alteplase, Recombinant (Cathflo (Activase)) 2 mg MAY REPEAT X1 PRN CATHETER IF CATHETER REMAINS OCCULUDED; Start 07/05/18 at 18:00 Vancomycin/Sodium Chloride 250 ml @ 125 mls/hr Q8H IVPB ; Start 07/06/18 at 11:30 JOSE GOVEA NP Jul 06, 2018 11:32
[2018-07-06] MEDS: VANCOMYCIN 750 MG (PMX) 250 ML IVPB SCH ×2 (11:58→21:00)
[2018-07-06 14:00] VITALS: BP 110/62; PULSE 76; RESP 18
--- NOTE | 2018-07-06 14:06 | PN ---
Date/Time of Note Date/Time of Note DATE: 07/06/18 TIME: 14:04 Assessment/Plan VTE Prophylaxis Risk score (from Ns)>0 risk: 2 SCD applied (from [facility]): No SCD contraindicated: low risk/ambulating Pharmacological prophylaxis: NA/contraindicated Pharm contraindication: low risk/ambulating Lines/Catheters IV Catheter Type (from [facility]): PICC Line Central line still needed: Yes Urinary Cath still in place: No Assessment/Plan Assessment/Plan 1. 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 BITA performed with thickening/densities on tricuspid valve. Unable to rule out vegetation. Will treat for endocarditis in setting of MRSA bacteremia and hx drug use - ID on board and appreciate recommendations. Will need antibiotics until 08/05 for a total of 8 weeks 2. MRSA bacteremia - Repeat blood culture negative. Remains afebrile with nl WBC. - ID on board and appreciate recommendations. Continue on current antibiotics 3. Poorly controlled diabetes- improved - A1c noted - sugars remain controlled - Endocrinology on board and appreciate recommendations. Continue on current insulin and glimepiride. 4. Extensive bilateral multilobar pneumonia - Patient found with MRSA in sputum and CT scan showing cavitating lesions but improvement in bilateral infiltrate - Pulm on board and continue current treatment. Cocci studies. After review of recent CT scan concern for septic emboli. BITA performed - Repeat CT scan performed this am showing "Multifocal bilateral areas of pneumonia are again present and have diminished in overall size however there is interval development of multiple foci of lucencies within the areas of consolidation suggestive for bronchiectasis or developing small cavitary lesions." - ID recommendations appreciated 5. Homelessness - SW on board 6. History of meth abuse - Patient states last use was 2 weeks prior to admission. Counseled on cessation. 7. Tobacco use - Cessation advised. 8. Iron Deficient anemia. - Continue oral iron. - H&H stable. 9. Mild asthma. - Currently stable - nebs PRN 10. Disposition - Medically stable for discharge once accepted to SNF Result Diagram: 07/04/18 0548 07/04/18 0548 Results 24hrs Laboratory Tests Test 07/05/18 16:58 07/05/18 20:35 07/06/18 07:58 07/06/18 11:57 Bedside Glucose 230 H 140 155 125 Subjective 24 Hr Interval Summary Free Text/Dictation Patient is doing well and in no acute distress. No acute overnight events. Exam/Review of Systems Exam Vitals Vital Signs Date Temp Pulse Resp B/P (MAP) Pulse Ox O2 O2 Flow FiO2 Time Delivery Rate 07/06/18 98.8 76 18 118/62 96 08:00 (80) Intake and Output 07/05/18 07/05/18 07/06/18 1515:00 23:00 07:00 IntakeIntake Total 940 ml 500 ml 250 ml BalanceBalance 940 ml 500 ml 250 ml Exam General: Patient is laying in bed and answers questions appropriately Respiratory: Diminished breath sounds. no wheezing Cardiovascular: regular rate and rhythm, no obvious murmurs Gastrointestinal: soft, non-tender to palpation, bowel sounds heard. Neurological: Moves all extremities spontaneously Skin: No new skin lesions Results Results 24hrs Laboratory Tests Test 07/05/18 16:58 07/05/18 20:35 07/06/18 07:58 07/06/18 11:57 Bedside Glucose 230 H 140 155 125 Medications Medication Current Medications Ondansetron HCl (Zofran Inj) 4 mg Q6H PRN IV NAUSEA AND/OR VOMITING Last administered on 07/06/18 08:15; Admin Dose 4 MG; Start 06/09/18 at 00:30 Ipratropium [place] (Atrovent 0.02% (Neb)) 0.5 mg Q2H RESP THERAPY PRN NEB SHORTNESS OF BREATH Last administered on 06/14/18 21:38; Admin Dose 0.5 MG; Start 06/09/18 at 00:30 Acetaminophen (Tylenol Liquid) 650 mg Q6H PRN PO PAIN LEVEL 1-3 OR FEVER Last administered on 06/29/18 05:58; Admin Dose 650 MG; Start 06/09/18 at 00:30 Docusate Sodium (Colace) 100 mg Q12H PRN PO CONSTIPATION Last administered on 06/29/18 05:59; Admin Dose 100 MG; Start 06/09/18 at 00:30 Bisacodyl (Dulcolax) 5 mg DAILY PRN PO CONSTIPATION Last administered on 06/29/18 05:58; Admin Dose 5 MG; Start 06/09/18 at 00:30 Pantoprazole (Protonix Tab) 40 mg DAILY@06 PO Last administered on 07/06/18 05:29; Admin Dose 40 MG; Start 06/09/18 at 06:00 Diagnostic Test (Pha) (Accu-Chek) 1 ea 02 XX Last administered on 07/05/18at 01:50; Admin Dose 1 EA; Start 06/10/18 at 02:00 Insulin Aspart (Novolog Insulin Pen) NOVOLOG *MILD* ALGORITHM WITH MEALS BEDTIME SC Last administered on 07/06/18at 08:01; Admin Dose 1 UNIT; Start 06/09/18 at 18:00 Miscellaneous Information 1 ea NOTE XX ; Start 06/09/18 at 14:30 Glucose (Glutose) 15 gm Q15M PRN PO DECREASED GLUCOSE; Start 06/09/18 at 14:30 Glucose (Glutose) 22.5 gm Q15M PRN PO DECREASED GLUCOSE; Start 06/09/18 at 14:30 Dextrose (D50w Syringe) 25 ml Q15M PRN IV DECREASED GLUCOSE Last administered on 06/29/18at 12:11; Admin Dose 25 ML; Start 06/09/18 at 14:30 Dextrose (D50w Syringe) 50 ml Q15M PRN IV DECREASED GLUCOSE; Start 06/09/18 at 14:30 Glucagon (Glucagen) 1 mg Q15M PRN IM DECREASED GLUCOSE; Start 06/09/18 at 14:30 Glucose (Glutose) 15 gm Q15M PRN BUCCAL DECREASED GLUCOSE; Start 06/09/18 at 14:30 Ferrous Sulfate (Ferrous Sulfate (Ec)) 325 mg DAILY PO Last administered on 07/06/18at 08:06; Admin Dose 325 MG; Start 06/13/18 at 10:30; Stop 08/12/18 at 10 :29 Levalbuterol (Xopenex Neb) 1.25 mg Q6H RESP THERAPY PRN HHN sob/wheezing Last administered on 06/14/18at 21:38; Admin Dose 1.25 MG; Start 06/14/18 at 09:00 Guaifenesin/ Dextromethorphan (Mucinex Dm) 1 tab BID PO Last administered on 07/06/18at 08:06; Admin Dose 1 TAB; Start 06/14/18 at 09:30 Metformin HCl (Glucophage) 1,000 mg BID WITH MEALS PO Last administered on 07/06/18at 07:59; Admin Dose 1,000 MG; Start 06/16/18 at 18:00 Ascorbic Acid (Vitamin C) 500 mg DAILY PO Last administered on 07/06/18 08:06; Admin Dose 500 MG; Start 06/17/18 at 09:00; Stop 08/16/18 at 08:59 Guaifenesin/ Codeine Phosphate (Robitussin Ac Liquid Cup) 5 ml Q4H PRN PO cough Last administered on 06/18/18 20:25; Admin Dose 5 ML; Start 06/18/18 at 12:00 Rifampin (Rifampin) 600 mg DAILY PO Last administered on 07/06/18 08:06; Admin Dose 600 MG; Start 06/20/18 at 14:30 Glimepiride (Amaryl) 4 mg QHS PO Last administered on 07/05/18 20:37; Admin Dose 4 MG; Start 06/25/18 at 21:00 Glimepiride (Amaryl) 2 mg AC BREAKFAST PO Last administered on 07/06/18 07:59; Admin Dose 2 MG; Start 06/26/18 at 07:00 Vancomycin HCl (Vanco Iv Per Pharmacy) VANCOMYCIN PER PHARMACY PER PROTOCOL XX ; Start 06/28/18 at 16:00 IV Flush (NS 10 ml) 10 ml PRN PRN IV FLUSH LINE; Start 06/28/18 at 18:30 Magnesium Citrate (Citroma) 300 ml DAILY PRN PO constipation Last administered on 07/04/18 21:01; Admin Dose 300 ML; Start 06/29/18 at 15:00 Zolpidem Tartrate (Ambien) 10 mg HS PRN PO insomnia Last administered on 06/29/18 21:55; Admin Dose 10 MG; Start 06/29/18 at 17:00 Multi-Ingredient Ointment (Eucerin Cream) 1 applic BID TOP Last administered on 07/05/18 20:41; Admin Dose 1 APPLIC; Start 07/01/18 at 21:30 Insulin Human NPH (Humulin N) 12 unit DAILY@20 SC Last administered on 07/05/18 20:39; Admin Dose 12 UNIT; Start 07/02/18 at 20:00 Alteplase, Recombinant (Cathflo (Activase)) 2 mg MAY REPEAT X1 PRN CATHETER IF CATHETER REMAINS OCCULUDED; Start 07/05/18 at 18:00 Vancomycin/Sodium Chloride 250 ml @ 125 mls/hr Q8H IVPB Last administered on 07/06/18at 11:58; Admin Dose 125 MLS/HR; Start 07/06/18 at 11:30 DAVE HAMMONDS MD Jul 06, 2018 14:06
[2018-07-06 20:48] VITALS: BP 115/74; PULSE 105; RESP 18
[2018-07-06] MEDS: NPH, HUMAN INSULIN ISOPHANE 3ML VIAL SC SCH (21:02)
[2018-07-06] MEDS: GLIMEPIRIDE 4 MG TAB PO SCH (21:04)
[2018-07-07] MEDS: ACCU-CHEK XX SCH (02:00)
[2018-07-07 02:36] VITALS: BP 111/69; PULSE 84; RESP 16
[2018-07-07] MEDS: VANCOMYCIN 750 MG (PMX) 250 ML IVPB SCH ×2 (03:24→12:29)
[2018-07-07] MEDS: PANTOPRAZOLE (EC) 40 MG TAB PO SCH (05:41)
[2018-07-07] MEDS: INSULIN ASPART [NOVOLOG] 3 ML PEN SC SCH ×4 (08:00→21:03)
[2018-07-07 08:36] VITALS: BP 121/79; PULSE 82; RESP 17
[2018-07-07] MEDS: ONDANSETRON 4 MG INJ IV PRN (08:36)
[2018-07-07] MEDS: RIFAMPIN 300 MG CAP PO SCH (08:37)
[2018-07-07] MEDS: GLIMEPIRIDE 2 MG TAB PO SCH (08:37)
[2018-07-07] MEDS: GUAIFENESIN/DM (SR) TAB PO SCH ×2 (08:37→20:57)
[2018-07-07] MEDS: metFORMIN 500 MG TAB PO SCH ×2 (08:37→17:43)
[2018-07-07] MEDS: FERROUS SULFATE (EC) 325 MG TAB PO SCH (08:37)
[2018-07-07] MEDS: ASCORBIC ACID 500 MG TAB PO SCH (08:37)
[2018-07-07] MEDS: EUCERIN 113 GM CR TOP SCH ×2 (08:38→21:05)
--- NOTE | 2018-07-07 10:54 | PN ---
Date/Time of Note Date/Time of Note DATE: 07/07/18 TIME: 10:52 Assessment/Plan VTE Prophylaxis Risk score (from Ns)>0 risk: 2 SCD applied (from Ns): No SCD contraindicated: low risk/ambulating Pharmacological prophylaxis: NA/contraindicated Pharm contraindication: low risk/ambulating Lines/Catheters IV C[facility]ter Type (from [facility] PICC Line Central line still needed: Yes Urinary Cath still in place: No Assessment/Plan Assessment/Plan 1. 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 BITA performed with thickening/densities on tricuspid valve. Unable to rule out vegetation. Will treat for endocarditis in setting of MRSA bacteremia and hx drug use - ID on board and appreciate recommendations. 2. MRSA bacteremia- resolved - Repeat blood culture negative. Remains afebrile with nl WBC. - ID on board and appreciate recommendations. Continue on current antibiotics 3. Poorly controlled diabetes- improved - A1c noted - sugars remain controlled - Endocrinology on board and appreciate recommendations. Continue on current insulin and glimepiride. 4. Extensive bilateral multilobar pneumonia - Patient found with MRSA in sputum and CT scan showing cavitating lesions but improvement in bilateral infiltrate - Pulm on board and continue current treatment. Cocci studies. After review of recent CT scan concern for septic emboli. BITA performed - Repeat CT scan performed this am showing "Multifocal bilateral areas of pneumonia are again present and have diminished in overall size however there is interval development of multiple foci of lucencies within the areas of consolidation suggestive for bronchiectasis or developing small cavitary lesions." - ID recommendations appreciated 5. Homelessness - SW on board 6. History of meth abuse - Patient states last use was 2 weeks prior to admission. Counseled on cessation. 7. Tobacco use - Cessation advised. 8. Iron Deficient anemia. - Continue oral iron. - H&H stable. 9. Mild asthma. - Currently stable - nebs PRN 10. Disposition - Medically stable for discharge once accepted to SNF Result Diagram: 07/04/18 0548 07/04/18 0548 Results 24hrs Laboratory Tests Test 07/06/18 11:57 07/06/18 17:14 07/06/18 20:51 07/07/18 02:11 Bedside Glucose 125 228 H 200 97 Test 07/07/18 08:28 07/07/18 10:39 Bedside Glucose 123 White Blood Count Pending Red Blood Count Pending Hemoglobin Pending Hematocrit Pending Mean Corpuscular Pending Volume Mean Corpuscular Pending Hemoglobin Mean Corpuscular Pending Hemoglobin Concent Red Cell Pending Distribution Width Platelet Count Pending Mean Platelet Volume Pending Subjective 24 Hr Interval Summary Free Text/Dictation Patient doing well and in no acute distress. No acute overnight events. Exam/Review of Systems Exam Vitals Vital Signs Date Temp Pulse Resp B/P (MAP) Pulse Ox O2 O2 Flow FiO2 Time Delivery Rate 07/07/18 98.2 82 17 121/79 97 Room Air 08:36 (93) Intake and Output 07/06/18 07/06/18 07/07/18 1515:00 23:00 07:00 IntakeIntake Total 1050 ml 500 ml 970 ml BalanceBalance 1050 ml 500 ml 970 ml Exam General: Patient is laying in bed and answers questions appropriately Respiratory: Diminished breath sounds. no wheezing Cardiovascular: regular rate and rhythm, no obvious murmurs Gastrointestinal: soft, non-tender to palpation, bowel sounds heard. Neurological: Moves all extremities spontaneously Skin: No new skin lesions Results Results 24hrs Laboratory Tests Test 07/06/18 11:57 07/06/18 17:14 07/06/18 20:51 07/07/18 02:11 Bedside Glucose 125 228 H 200 97 Test 07/07/18 08:28 07/07/18 10:39 Bedside Glucose 123 White Blood Count Pending Red Blood Count Pending Hemoglobin Pending Hematocrit Pending Mean Corpuscular Pending Volume Mean Corpuscular Pending Hemoglobin Mean Corpuscular Pending Hemoglobin Concent Red Cell Pending Distribution Width Platelet Count Pending Mean Platelet Volume Pending Medications Medication Current Medications Ondansetron HCl (Zofran Inj) 4 mg Q6H PRN IV NAUSEA AND/OR VOMITING Last administered on 07/07/18at 08:36; Admin Dose 4 MG; Start 06/09/18 at 00:30 Ipratropium [place] (Atrovent 0.02% (Neb)) 0.5 mg Q2H RESP THERAPY PRN NEB SHORTNESS OF BREATH Last administered on 06/14/18at 21:38; Admin Dose 0.5 MG; Start 06/09/18 at 00:30 Acetaminophen (Tylenol Liquid) 650 mg Q6H PRN PO PAIN LEVEL 1-3 OR FEVER Last administered on 06/29/18 05:58; Admin Dose 650 MG; Start 06/09/18 at 00:30 Docusate Sodium (Colace) 100 mg Q12H PRN PO CONSTIPATION Last administered on 06/29/18 05:59; Admin Dose 100 MG; Start 06/09/18 at 00:30 Bisacodyl (Dulcolax) 5 mg DAILY PRN PO CONSTIPATION Last administered on 06/29/18 05:58; Admin Dose 5 MG; Start 06/09/18 at 00:30 Pantoprazole (Protonix Tab) 40 mg DAILY@06 PO Last administered on 07/07/18 05:41; Admin Dose 40 MG; Start 06/09/18 at 06:00 Diagnostic Test (Pha) (Accu-Chek) 1 ea 02 XX Last administered on 07/05/18at 01:50; Admin Dose 1 EA; Start 06/10/18 at 02:00 Insulin Aspart (Novolog Insulin Pen) NOVOLOG *MILD* ALGORITHM WITH MEALS BEDTIME SC Last administered on 07/06/18at 21:04; Admin Dose 1 UNIT; Start 06/09/18 at 18:00 Miscellaneous Information 1 ea NOTE XX ; Start 06/09/18 at 14:30 Glucose (Glutose) 15 gm Q15M PRN PO DECREASED GLUCOSE; Start 06/09/18 at 14:30 Glucose (Glutose) 22.5 gm Q15M PRN PO DECREASED GLUCOSE; Start 06/09/18 at 14:30 Dextrose (D50w Syringe) 25 ml Q15M PRN IV DECREASED GLUCOSE Last administered on 06/29/18at 12:11; Admin Dose 25 ML; Start 06/09/18 at 14:30 Dextrose (D50w Syringe) 50 ml Q15M PRN IV DECREASED GLUCOSE; Start 06/09/18 at 14:30 Glucagon (Glucagen) 1 mg Q15M PRN IM DECREASED GLUCOSE; Start 06/09/18 at 14:30 Glucose (Glutose) 15 gm Q15M PRN BUCCAL DECREASED GLUCOSE; Start 06/09/18 at 14:30 Ferrous Sulfate (Ferrous Sulfate (Ec)) 325 mg DAILY PO Last administered on 07/07/18at 08:37; Admin Dose 325 MG; Start 06/13/18 at 10:30; Stop 08/12/18 at 10:29 Levalbuterol (Xopenex Neb) 1.25 mg Q6H RESP THERAPY PRN HHN sob/wheezing Last administered on 06/14/18 21:38; Admin Dose 1.25 MG; Start 06/14/18 at 09:00 Guaifenesin/ Dextromethorphan (Mucinex Dm) 1 tab BID PO Last administered on 07/07/18 08:37; Admin Dose 1 TAB; Start 06/14/18 at 09:30 Metformin HCl (Glucophage) 1,000 mg BID WITH MEALS PO Last administered on 07/07/18 08:37; Admin Dose 1,000 MG; Start 06/16/18 at 18:00 Ascorbic Acid (Vitamin C) 500 mg DAILY PO Last administered on 07/07/18 08:37; Admin Dose 500 MG; Start 06/17/18 at 09:00; Stop 08/16/18 at 08:59 Guaifenesin/ Codeine Phosphate (Robitussin Ac Liquid Cup) 5 ml Q4H PRN PO cough Last administered on 06/18/18 20:25; Admin Dose 5 ML; Start 06/18/18 at 12:00 Rifampin (Rifampin) 600 mg DAILY PO Last administered on 07/07/18 08:37; Admin Dose 600 MG; Start 06/20/18 at 14:30 Glimepiride (Amaryl) 4 mg QHS PO Last administered on 07/06/18 21:04; Admin Dose 4 MG; Start 06/25/18 at 21:00 Glimepiride (Amaryl) 2 mg AC BREAKFAST PO Last administered on 07/07/18 08:37; Admin Dose 2 MG; Start 06/26/18 at 07:00 Vancomycin HCl (Vanco Iv Per Pharmacy) VANCOMYCIN PER PHARMACY PER PROTOCOL XX ; Start 06/28/18 at 16:00 IV Flush (NS 10 ml) 10 ml PRN PRN IV FLUSH LINE; Start 06/28/18 at 18:30 Magnesium Citrate (Citroma) 300 ml DAILY PRN PO constipation Last administered on 07/04/18 21:01; Admin Dose 300 ML; Start 06/29/18 at 15:00 Zolpidem Tartrate (Ambien) 10 mg HS PRN PO insomnia Last administered on 4/11/19at 21:55; Admin Dose 10 MG; Start 06/29/18 at 17:00 Multi-Ingredient Ointment (Eucerin Cream) 1 applic BID TOP Last administered on 07/06/18at 21:06; Admin Dose 1 APPLIC; Start 07/01/18 at 21:30 Insulin Human NPH (Humulin N) 12 unit DAILY@20 SC Last administered on 07/06/18at 21:02; Admin Dose 12 UNIT; Start 07/02/18 at 20:00 Alteplase, Recombinant (Cathflo (Activase)) 2 mg MAY REPEAT X1 PRN CATHETER IF CATHETER REMAINS OCCULUDED; Start 07/05/18 at 18:00 Vancomycin/Sodium Chloride 250 ml @ 125 mls/hr Q8H IVPB Last administered on 07/07/18at 03:24; Admin Dose 125 MLS/HR; Start 07/06/18 at 11:30 DAVE HAMMONDS MD Jul 07, 2018 10:54
[2018-07-07] MEDS ORDERED: MAGNESIUM OXIDE 400 MG TAB PO ONE (11:30)
--- NOTE | 2018-07-07 12:36 | CONS ---
Consult Date/Type/Reason Admit Date/Time Jun 08, 2018 at 23:53 Initial Consult Date 06/26/18 Type of Consultation: cv Requesting Provider: HAYDEE RAYO Date/Time of Note DATE: 07/07/18 TIME: 12:35 Subjective Cardiology follow-up progress Subjective: Discussed with the staff . pt is off tele now no report of chest pain breathing is better . less cough no diarrhea Objective: General: no acute distress HEENT: NC/AT. pupils are equal. round. NECK: NO JVD. no stridor. CV: RRR. systolic murmur; no gallop or rubs. PULM: no wheezing . GI: SOFT, NT, ND, no rebound or guarding Extremity: No significant LE edema. no clubbing. neuro: awake and alert Psych: calm and pleasant rectal: deferred Derm: Multiple tattoos Repeat echocardiogram on 06/26/2018 shows: Normal left ventricular systolic function. Normal left ventricular cavity size. Left ventricular wall thickness upper limits of normal. Ejection fraction is visually estimated at 60 %. Tissue Doppler/Mitral Doppler indices are consistent with impaired relaxation (Stage I diastolic dysfunction). Normal right ventricular size. Normal right ventricular systolic function. The left atrium is normal in size. The right atrium is normal in size. No significant valvular stenosis or regurgitation seen. Normal pericardium with no significant pericardial effusion. BITA 06/28/18 Normal LV size and systolic function with trace MR and TR Echo density/thickening of the tricuspid valve is noted. Vegetation cannot be ruled out Objective Vitals Vital Signs Date Temp Pulse Resp B/P (MAP) Pulse Ox O2 O2 Flow FiO2 Time Delivery Rate 07/07/18 98.2 82 17 121/79 97 Room Air 08:36 (93) Intake and Output 07/06/18 07/06/18 07/07/18 1515:00 23:00 07:00 IntakeIntake Total 1050 ml 500 ml 970 ml BalanceBalance 1050 ml 500 ml 970 ml Results/Medications Result Diagram: 07/07/18 1039 07/07/18 1039 Results 24 hrs Laboratory Tests Test 07/06/18 17:14 07/06/18 20:51 07/07/18 02:11 07/07/18 08:28 Bedside Glucose 228 H 200 97 123 Test 07/07/18 10:39 07/07/18 11:59 White Blood Count 6.5 Red Blood Count 4.25 Hemoglobin 12.1 Hematocrit 38.5 Mean Corpuscular 90.6 Volume Mean Corpuscular 28.5 L Hemoglobin Mean Corpuscular 31.4 L Hemoglobin Concent Red Cell 18.4 H Distribution Width Platelet Count 268 Mean Platelet Volume 10.0 Immature 0.300 Granulocytes % Neutrophils % 55.9 Lymphocytes % 35.4 Monocytes % 4.3 Eosinophils % 3.6 Basophils % 0.5 Nucleated Red Blood 0.0 Cells % Immature 0.020 Granulocytes # Neutrophils # 3.6 Lymphocytes # 2.3 Monocytes # 0.3 Eosinophils # 0.2 Basophils # 0.0 Nucleated Red Blood 0.0 Cells # Sodium Level 137 Potassium Level 4.3 Chloride Level 104 Carbon Dioxide Level 25 Anion Gap 8 Blood Urea Nitrogen 12 Creatinine 0.38 L Glucose Level 173 Calcium Level 9.4 Phosphorus Level 4.0 Magnesium Level 1.6 L Albumin 3.6 Vancomycin Level 9.1 L Trough Bedside Glucose 78 Medications Current Medications Ondansetron HCl (Zofran Inj) 4 mg Q6H PRN IV NAUSEA AND/OR VOMITING Last administered on 07/07/18 08:36; Admin Dose 4 MG; Start 06/09/18 at 00:30 Ipratropium [place] (Atrovent 0.02% (Neb)) 0.5 mg Q2H RESP THERAPY PRN NEB SHORTNESS OF BREATH Last administered on 06/14/18 21:38; Admin Dose 0.5 MG; Start 06/09/18 at 00:30 Acetaminophen (Tylenol Liquid) 650 mg Q6H PRN PO PAIN LEVEL 1-3 OR FEVER Last administered on 06/29/18 05:58; Admin Dose 650 MG; Start 06/09/18 at 00:30 Docusate Sodium (Colace) 100 mg Q12H PRN PO CONSTIPATION Last administered on 06/29/18 05:59; Admin Dose 100 MG; Start 06/09/18 at 00:30 Bisacodyl (Dulcolax) 5 mg DAILY PRN PO CONSTIPATION Last administered on 06/29/18 05:58; Admin Dose 5 MG; Start 06/09/18 at 00:30 Pantoprazole (Protonix Tab) 40 mg DAILY@06 PO Last administered on 07/07/18 05:41; Admin Dose 40 MG; Start 06/09/18 at 06:00 Diagnostic Test (Pha) (Accu-Chek) 1 ea 02 XX Last administered on 07/05/18at 01:50; Admin Dose 1 EA; Start 06/10/18 at 02:00 Insulin Aspart (Novolog Insulin Pen) NOVOLOG *MILD* ALGORITHM WITH MEALS BEDTIME SC Last administered on 07/06/18at 21:04; Admin Dose 1 UNIT; Start 06/09/18 at 18:00 Miscellaneous Information 1 ea NOTE XX ; Start 06/09/18 at 14:30 Glucose (Glutose) 15 gm Q15M PRN PO DECREASED GLUCOSE; Start 06/09/18 at 14:30 Glucose (Glutose) 22.5 gm Q15M PRN PO DECREASED GLUCOSE; Start 06/09/18 at 14:30 Dextrose (D50w Syringe) 25 ml Q15M PRN IV DECREASED GLUCOSE Last administered on 06/29/18at 12:11; Admin Dose 25 ML; Start 06/09/18 at 14:30 Dextrose (D50w Syringe) 50 ml Q15M PRN IV DECREASED GLUCOSE; Start 06/09/18 at 14:30 Glucagon (Glucagen) 1 mg Q15M PRN IM DECREASED GLUCOSE; Start 06/09/18 at 14:30 Glucose (Glutose) 15 gm Q15M PRN BUCCAL DECREASED GLUCOSE; Start 06/09/18 at 14:30 Ferrous Sulfate (Ferrous Sulfate (Ec)) 325 mg DAILY PO Last administered on 07/07/18at 08:37; Admin Dose 325 MG; Start 06/13/18 at 10:30; Stop 08/12/18 at 10:29 Levalbuterol (Xopenex Neb) 1.25 mg Q6H RESP THERAPY PRN HHN sob/wheezing Last administered on 06/14/18at 21:38; Admin Dose 1.25 MG; Start 06/14/18 at 09:00 Guaifenesin/ Dextromethorphan (Mucinex Dm) 1 tab BID PO Last administered on at 08:37; Admin Dose 1 TAB; Start 06/14/18 at 09:30 Metformin HCl (Glucophage) 1,000 mg BID WITH MEALS PO Last administered on 07/07/18at 08:37; Admin Dose 1,000 MG; Start 06/16/18 at 18:00 Ascorbic Acid (Vitamin C) 500 mg DAILY PO Last administered on 07/07/18 08:37; Admin Dose 500 MG; Start 06/17/18 at 09:00; Stop 08/16/18 at 08:59 Guaifenesin/ Codeine Phosphate (Robitussin Ac Liquid Cup) 5 ml Q4H PRN PO cough Last administered on 06/18/18at 20:25; Admin Dose 5 ML; Start 06/18/18 at 12:00 Rifampin (Rifampin) 600 mg DAILY PO Last administered on 07/07/18 08:37; Admin Dose 600 MG; Start 06/20/18 at 14:30 Glimepiride (Amaryl) 4 mg QHS PO Last administered on 07/06/18 21:04; Admin D ose 4 MG; Start 06/25/18 at 21:00 Glimepiride (Amaryl) 2 mg AC BREAKFAST PO Last administered on 07/07/18 08:37; Admin Dose 2 MG; Start 06/26/18 at 07:00 Vancomycin HCl (Vanco Iv Per Pharmacy) VANCOMYCIN PER PHARMACY PER PROTOCOL XX ; Start 06/28/18 at 16:00 IV Flush (NS 10 ml) 10 ml PRN PRN IV FLUSH LINE; Start 06/28/18 at 18:30 Magnesium Citrate (Citroma) 300 ml DAILY PRN PO constipation Last administered on 07/04/18at 21:01; Admin Dose 300 ML; Start 06/29/18 at 15:00 Zolpidem Tartrate (Ambien) 10 mg HS PRN PO insomnia Last administered on 06/29/18 21:55; Admin Dose 10 MG; Start 06/29/18 at 17:00 Multi-Ingredient Ointment (Eucerin Cream) 1 applic BID TOP Last administered on 07/06/18 21:06; Admin Dose 1 APPLIC; Start 07/01/18 at 21:30 Insulin Human NPH (Humulin N) 12 unit DAILY@20 SC Last administered on 07/06/18at 21:02; Admin Dose 12 UNIT; Start 07/02/18 at 20:00 Alteplase, Recombinant (Cathflo (Activase)) 2 mg MAY REPEAT X1 PRN CATHETER IF CATHETER REMAINS OCCULUDED; Start 07/05/18 at 18:00 Vancomycin/Sodium Chloride 250 ml @ 125 mls/hr Q8H IVPB Last administered on 07/07/18at 12:29; Admin Dose 125 MLS/HR; Start 07/06/18 at 11:30 Magnesium Sulfate 3 gm/Dextrose 106 ml @ 35.333 mls/ hr ONCE ONCE IVPB ; Start 07/07/18 at 13:30; Stop 07/07/18 at 16:29 Assessment/Plan Hospital Course (Demo Recall) 1. MRSA bacteremia, with a possible vegetation on tricuspid valve on the transesophageal echocardiogram 2. Pneumonia 3. Status post DKA 4. Diabetes 5. Anemia 6. Homelessness Recommendations: Diabetic management as per internal medicine and endocrine regulatory services consultant. Antibiotic management as per infectious disease recommendations. replace lytes including Mg prn thank you for this referral. We will continue to follow along with you as needed ABDI JAY MD [facility] ABDI JAY MD Jul 07, 2018 12:36
--- NOTE | 2018-07-07 13:16 | CONS ---
Assessment/Plan Assessment/Plan Hospital Course (Demo Recall) No acute changes. Alert, feels good AFB smears negative 3 sets, cocci neg Microbiology: Blood culture on June 08 grew MRSA, repeat blood cultures negative, sputum culture on June 16 grew Talia albicans and MRSA. Serology for HIV negative Antimicrobials: Rifampin Vanco Physical examination: Well-developed middle-aged woman who is alert in no distress. Head atraumatic normocephalic sclera nonicteric. Neck is supple chest rise symmetrical breath sounds diminished bases. Heart S1-S2. Abdomen soft bowel sounds present. Extremities without cyanosis. Assessment: 1. S/p sepsis 2. 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 Necrotizing MRSA pneumonia with areas of cavitation per CT ?septic emboli 4. Homelessness 5. Poorly controlled diabetes 6. Meth amphetamine abuse Plan: Remains stable, pending discharge arrangements on IV Vanco last dose August 05 Consultation Date/Type/Reason Admit Date/Time Jun 08, 2018 at 23:53 Initial Consult Date Type of Consult id Requesting Provider: HAYDEE RAYO Date/Time of Note DATE: 07/07/18 TIME: 13:16 Exam/Review of Systems Exam Vitals Vital Signs Date Temp Pulse Resp B/P (MAP) Pulse Ox O2 O2 Flow FiO2 Time Delivery Rate 07/07/18 98.2 82 17 121/79 97 Room Air 08:36 (93) Intake and Output 07/06/18 07/06/18 07/07/18 1515:00 23:00 07:00 IntakeIntake Total 1050 ml 500 ml 970 ml BalanceBalance 1050 ml 500 ml 970 ml Results Result Diagram: 07/07/18 1039 07/07/18 1039 Results 24hrs Laboratory Tests Test 07/06/18 17:14 07/06/18 20:51 07/07/18 02:11 07/07/18 08:28 Bedside Glucose 228 H 200 97 123 Test 07/07/18 10:39 07/07/18 11:59 White Blood Count 6.5 Red Blood Count 4.25 Hemoglobin 12.1 Hematocrit 38.5 Mean Corpuscular 90.6 Volume Mean Corpuscular 28.5 L Hemoglobin Mean Corpuscular 31.4 L Hemoglobin Concent Red Cell 18.4 H Distribution Width Platelet Count 268 Mean Platelet Volume 10.0 Immature 0.300 Granulocytes % Neutrophils % 55.9 Lymphocytes % 35.4 Monocytes % 4.3 Eosinophils % 3.6 Basophils % 0.5 Nucleated Red Blood 0.0 Cells % Immature 0.020 Granulocytes # Neutrophils # 3.6 Lymphocytes # 2.3 Monocytes # 0.3 Eosinophils # 0.2 Basophils # 0.0 Nucleated Red Blood 0.0 Cells # Sodium Level 137 Potassium Level 4.3 Chloride Level 104 Carbon Dioxide Level 25 Anion Gap 8 Blood Urea Nitrogen 12 Creatinine 0.38 L Glucose Level 173 Calcium Level 9.4 Phosphorus Level 4.0 Magnesium Level 1.6 L Albumin 3.6 Vancomycin Level 9.1 L Trough Bedside Glucose 78 Medications Medication Current Medications Ondansetron HCl (Zofran Inj) 4 mg Q6H PRN IV NAUSEA AND/OR VOMITING Last administered on 07/07/18 08:36; Admin Dose 4 MG; Start 06/09/18 at 00:30 Ipratropium [place] (Atrovent 0.02% (Neb)) 0.5 mg Q2H RESP THERAPY PRN NEB SHORTNESS OF BREATH Last administered on 06/14/18 21:38; Admin Dose 0.5 MG; Start 06/09/18 at 00:30 Acetaminophen (Tylenol Liquid) 650 mg Q6H PRN PO PAIN LEVEL 1-3 OR FEVER Last administered on 06/29/18 05:58; Admin Dose 650 MG; Start 06/09/18 at 00:30 Docusate Sodium (Colace) 100 mg Q12H PRN PO CONSTIPATION Last administered on 06/29/18 05:59; Admin Dose 100 MG; Start 06/09/18 at 00:30 Bisacodyl (Dulcolax) 5 mg DAILY PRN PO CONSTIPATION Last administered on 06/29/18 05:58; Admin Dose 5 MG; Start 06/09/18 at 00:30 Pantoprazole (Protonix Tab) 40 mg DAILY@06 PO Last administered on 07/07/18 05:41; Admin Dose 40 MG; Start 06/09/18 at 06:00 Diagnostic Test (Pha) (Accu-Chek) 1 ea 02 XX Last administered on 07/05/18 01:50; Admin Dose 1 EA; Start 06/10/18 at 02:00 Insulin Aspart (Novolog Insulin Pen) NOVOLOG *MILD* ALGORITHM WITH MEALS BEDTIME SC Last administered on 4/18/19at 21:04; Admin Dose 1 UNIT; Start 06/09/18 at 18:00 Miscellaneous Information 1 ea NOTE XX ; Start 06/09/18 at 14:30 Glucose (Glutose) 15 gm Q15M PRN PO DECREASED GLUCOSE; Start 06/09/18 at 14:30 Glucose (Glutose) 22.5 gm Q15M PRN PO DECREASED GLUCOSE; Start 06/09/18 at 14:30 Dextrose (D50w Syringe) 25 ml Q15M PRN IV DECREASED GLUCOSE Last administered on 06/29/18at 12:11; Admin Dose 25 ML; Start 06/09/18 at 14:30 Dextrose (D50w Syringe) 50 ml Q15M PRN IV DECREASED GLUCOSE; Start 06/09/18 at 14:30 Glucagon (Glucagen) 1 mg Q15M PRN IM DECREASED GLUCOSE; Start 06/09/18 at 14:30 Glucose (Glutose) 15 gm Q15M PRN BUCCAL DECREASED GLUCOSE; Start 06/09/18 at 14:30 Ferrous Sulfate (Ferrous Sulfate (Ec)) 325 mg DAILY PO Last administered on 07/07/18at 08:37; Admin Dose 325 MG; Start 06/13/18 at 10:30; Stop 08/12/18 at 10:29 Levalbuterol (Xopenex Neb) 1.25 mg Q6H RESP THERAPY PRN HHN sob/wheezing Last administered on 06/14/18at 21:38; Admin Dose 1.25 MG; Start 06/14/18 at 09:00 Guaifenesin/ Dextromethorphan (Mucinex Dm) 1 tab BID PO Last administered on 07/07/18at 08:37; Admin Dose 1 TAB; Start 06/14/18 at 09:30 Metformin HCl (Glucophage) 1,000 mg BID WITH MEALS PO Last administered on 07/07/18 08:37; Admin Dose 1,000 MG; Start 06/16/18 at 18:00 Ascorbic Acid (Vitamin C) 500 mg DAILY PO Last administered on 07/07/18 08:37; Admin Dose 500 MG; Start 06/17/18 at 09:00; Stop 08/16/18 at 08:59 Guaifenesin/ Codeine Phosphate (Robitussin Ac Liquid Cup) 5 ml Q4H PRN PO cough Last administered on 06/18/18at 20:25; Admin Dose 5 ML; Start 06/18/18 at 12:00 Rifampin (Rifampin) 600 mg DAILY PO Last administered on 07/07/18 08:37; Admin Dose 600 MG; Start 06/20/18 at 14:30 Glimepiride (Amaryl) 4 mg QHS PO Last administered on 07/06/18 21:04; Admin Dose 4 MG; Start 06/25/18 at 21:00 Glimepiride (Amaryl) 2 mg AC BREAKFAST PO Last administered on 07/07/18 08:37; Admin Dose 2 MG; Start 06/26/18 at 07:00 Vancomycin HCl (Vanco Iv Per Pharmacy) VANCOMYCIN PER PHARMACY PER PROTOCOL XX ; Start 06/28/18 at 16:00 IV Flush (NS 10 ml) 10 ml PRN PRN IV FLUSH LINE; Start 06/28/18 at 18:30 Magnesium Citrate (Citroma) 300 ml DAILY PRN PO constipation Last administered on 07/04/18 21:01; Admin Dose 300 ML; Start 06/29/18 at 15:00 Zolpidem Tartrate (Ambien) 10 mg HS PRN PO insomnia Last administered on 06/29/18 21:55; Admin Dose 10 MG; Start 06/29/18 at 17:00 Multi-Ingredient Ointment (Eucerin Cream) 1 applic BID TOP Last administered on 07/06/18at 21:06; Admin Dose 1 APPLIC; Start 07/01/18 at 21:30 Insulin Human NPH (Humulin N) 12 unit DAILY@20 SC Last administered on 07/06/18at 21:02; Admin Dose 12 UNIT; Start 07/02/18 at 20:00 Alteplase, Recombinant (Cathflo (Activase)) 2 mg MAY REPEAT X1 PRN CATHETER IF CATHETER REMAINS OCCULUDED; Start 07/05/18 at 18:00 Vancomycin/Sodium Chloride 250 ml @ 125 mls/hr Q8H IVPB Last administered on 07/07/18at 12:29; Admin Dose 125 MLS/HR; Start 07/06/18 at 11:30 Magnesium Sulfate 3 gm/Dextrose 106 ml @ 35.333 mls/ hr ONCE ONCE IVPB ; Start 07/07/18 at 13:30; Stop 07/07/18 at 16:29 ISJOSE ROSENBERG NP Jul 07, 2018 13:16
[2018-07-07] MEDS ORDERED: MAGNESIUM SULFATE 3 GM in DEXTROSE 5% 100 ML IVPB ONE (13:30)
[2018-07-07 14:00] VITALS: BP 127/90; PULSE 107; RESP 18
[2018-07-07] MEDS ORDERED: LIDOCAINE 1% (MPF) 5 ML VIAL SC ONE (17:00)
[2018-07-07] MEDS: ACETAMINOPHEN 650MG/20.3ML CUP PO PRN (17:43)
[2018-07-07 19:28] VITALS: BP 107/65; PULSE 100; RESP 20
[2018-07-07] MEDS: VANCOMYCIN 1 GM 250 ML IVPB SCH (20:57)
[2018-07-07] MEDS: GLIMEPIRIDE 4 MG TAB PO SCH (20:57)
[2018-07-07] MEDS: NPH, HUMAN INSULIN ISOPHANE 3ML VIAL SC SCH (21:05)
[2018-07-07] MEDS: LEVALBUTEROL (NEB) 1.25 MG/0.5 ML AMP HHN PRN (23:32)
[2018-07-07] MEDS: IPRATROPIUM (NEB) 0.5 MG/2.5 ML AMP NEB PRN (23:32)
[2018-07-08] MEDS ORDERED: LORAZEPAM 2 MG INJ IV ONE
[2018-07-08 01:55] VITALS: BP 117/68; PULSE 51; RESP 18
[2018-07-08] MEDS: ACCU-CHEK XX SCH (02:00)
[2018-07-08] MEDS: VANCOMYCIN 1 GM 250 ML IVPB SCH ×3 (04:24→20:06)
[2018-07-08] MEDS: PANTOPRAZOLE (EC) 40 MG TAB PO SCH (05:43)
[2018-07-08] MEDS: INSULIN ASPART [NOVOLOG] 3 ML PEN SC SCH ×4 (08:00→20:10)
[2018-07-08 08:15] VITALS: BP 114/76; PULSE 103; RESP 17
[2018-07-08] MEDS: FERROUS SULFATE (EC) 325 MG TAB PO SCH (08:45)
[2018-07-08] MEDS: GUAIFENESIN/DM (SR) TAB PO SCH ×2 (08:45→20:10)
[2018-07-08] MEDS: ASCORBIC ACID 500 MG TAB PO SCH (08:45)
[2018-07-08] MEDS: RIFAMPIN 300 MG CAP PO SCH (08:45)
[2018-07-08] MEDS: metFORMIN 500 MG TAB PO SCH ×2 (08:46→18:00)
[2018-07-08] MEDS: GLIMEPIRIDE 2 MG TAB PO SCH (08:46)
[2018-07-08] MEDS: EUCERIN 113 GM CR TOP SCH ×2 (08:48→20:12)
[2018-07-08] MEDS: ONDANSETRON 4 MG INJ IV PRN (08:50)
--- NOTE | 2018-07-08 13:34 | PN ---
Date/Time of Note Date/Time of Note DATE: 07/08/18 TIME: 13:29 Assessment/Plan VTE Prophylaxis Risk score (from Ns)>0 risk: 2 SCD applied (from Ns): No SCD contraindicated: low risk/ambulating Pharmacological prophylaxis: NA/contraindicated Pharm contraindication: low risk/ambulating Lines/Catheters IV [facility] PICC Line Central line still needed: Yes Urinary Cath still in place: No Assessment/Plan Assessment/Plan 1. 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 BITA performed with thickening/densities on tricuspid valve. Unable to rule out vegetation. Will treat for endocarditis in setting of MRSA bacteremia and hx drug use - ID on board and appreciate recommendations. 2. MRSA bacteremia- resolved - Repeat blood culture negative. Remains afebrile with nl WBC. - ID on board and appreciate recommendations. Continue on current antibiotics 3. Poorly controlled diabetes- improved - A1c noted - sugars remain controlled - Endocrinology on board and appreciate recommendations. Continue on current insulin and glimepiride. 4. Extensive bilateral multilobar pneumonia - Patient found with MRSA in sputum and CT scan showing cavitating lesions but improvement in bilateral infiltrate - Pulm on board and continue current treatment. Cocci studies. After review of recent CT scan concern for septic emboli. BITA performed - Repeat CT scan performed this am showing "Multifocal bilateral areas of pneumonia are again present and have diminished in overall size however there is interval development of multiple foci of lucencies within the areas of consolidation suggestive for bronchiectasis or developing small cavitary lesions." - ID recommendations appreciated 5. Homelessness - SW on board 6. History of meth abuse - Patient states last use was 2 weeks prior to admission. Counseled on cessation. 7. Tobacco use - Cessation advised. 8. Iron Deficient anemia. - Continue oral iron. - H&H stable. 9. Mild asthma. - Currently stable 10. Disposition - Medically stable for discharge once accepted to Result Diagram: 07/07/18 1039 07/08/18 0547 Results 24hrs Laboratory Tests Test 07/07/18 17:37 07/07/18 21:01 07/08/18 01:25 07/08/18 05:47 Bedside Glucose 198 206 160 Blood Urea Nitrogen 12 Creatinine 0.29 L Test 07/08/18 08:04 07/08/18 11:59 Bedside Glucose 114 115 Subjective 24 Hr Interval Summary Free Text/Dictation Patient complaining of discomfort at PICC line insertion site given had to be replaced. no acute overnight events. Exam/Review of Systems Exam Vitals Vital Signs Date Temp Pulse Resp B/P (MAP) Pulse Ox O2 O2 Flow FiO2 Time Delivery Rate 07/08/18 98.3 103 17 114/76 95 Room Air 08:15 (89) 07/07/18 23:34 Intake and Output 07/07/18 07/07/18 07/08/18 1515:00 23:00 07:00 IntakeIntake Total 800 ml 860 ml 490 ml BalanceBalance 800 ml 860 ml 490 ml Exam General: Patient is laying in bed and answers questions appropriately Respiratory: Diminished breath sounds. no wheezing Cardiovascular: regular rate and rhythm, no obvious murmurs Gastrointestinal: soft, non-tender to palpation, bowel sounds heard. Neurological: Moves all extremities spontaneously Skin: No new skin lesions Results Results 24hrs Laboratory Tests Test 07/07/18 17:37 07/07/18 21:01 07/08/18 01:25 07/08/18 05:47 Bedside Glucose 198 206 160 Blood Urea Nitrogen 12 Creatinine 0.29 L Test 07/08/18 08:04 07/08/18 11:59 Bedside Glucose 114 115 Medications Medication Current Medications Ondansetron HCl (Zofran Inj) 4 mg Q6H PRN IV NAUSEA AND/OR VOMITING Last administered on 07/08/18 08:50; Admin Dose 4 MG; Start 06/09/18 at 00:30 Ipratropium [place] (Atrovent 0.02% (Neb)) 0.5 mg Q2H RESP THERAPY PRN NEB SHORTNESS OF BREATH Last administered on 07/07/18at 23:32; Admin Dose 0.5 MG; Start 06/09/18 at 00:30 Acetaminophen (Tylenol Liquid) 650 mg Q6H PRN PO PAIN LEVEL 1-3 OR FEVER Last administered on 07/07/18at 17:43; Admin Dose 650 MG; Start 06/09/18 at 00:30 Docusate Sodium (Colace) 100 mg Q12H PRN PO CONSTIPATION Last administered on 06/29/18 05:59; Admin Dose 100 MG; Start 06/09/18 at 00:30 Bisacodyl (Dulcolax) 5 mg DAILY PRN PO CONSTIPATION Last administered on 06/29/18at 05:58; Admin Dose 5 MG; Start 06/09/18 at 00:30 Pantoprazole (Protonix Tab) 40 mg DAILY@06 PO Last administered on 07/08/18at 05:43; Admin Dose 40 MG; Start 06/09/18 at 06:00 Diagnostic Test (Pha) (Accu-Chek) 1 ea 02 XX Last administered on 07/05/18at 01:50; Admin Dose 1 EA; Start 06/10/18 at 02:00 Insulin Aspart (Novolog Insulin Pen) NOVOLOG *MILD* ALGORITHM WITH MEALS BEDTIME SC Last administered on 07/07/18at 21:03; Admin Dose 1 UNIT; Start 06/09/18 at 18:00 Miscellaneous Information 1 ea NOTE XX ; Start 06/09/18 at 14:30 Glucose (Glutose) 15 gm Q15M PRN PO DECREASED GLUCOSE; Start 06/09/18 at 14:30 Glucose (Glutose) 22.5 gm Q15M PRN PO DECREASED GLUCOSE; Start 06/09/18 at 14:30 Dextrose (D50w Syringe) 25 ml Q15M PRN IV DECREASED GLUCOSE Last administered on 06/29/18at 12:11; Admin Dose 25 ML; Start 06/09/18 at 14:30 Dextrose (D50w Syringe) 50 ml Q15M PRN IV DECREASED GLUCOSE; Start 06/09/18 at 14:30 Glucagon (Glucagen) 1 mg Q15M PRN IM DECREASED GLUCOSE; Start 06/09/18 at 14:30 Glucose (Glutose) 15 gm Q15M PRN BUCCAL DECREASED GLUCOSE; Start 06/09/18 at 14:30 Ferrous Sulfate (Ferrous Sulfate (Ec)) 325 mg DAILY PO Last administered on 07/08/18at 08:45; Admin Dose 325 MG; Start 06/13/18 at 10:30; Stop 08/12/18 at 10:29 Levalbuterol (Xopenex Neb) 1.25 mg Q6H RESP THERAPY PRN HHN sob/wheezing Last administered on 07/07/18at 23:32; Admin Dose 1.25 MG; Start 06/14/18 at 09:00 Guaifenesin/ Dextromethorphan (Mucinex Dm) 1 tab BID PO Last administered on 07/08/18 08:45; Admin Dose 1 TAB; Start 06/14/18 at 09:30 Metformin HCl (Glucophage) 1,000 mg BID WITH MEALS PO Last administered on 07/08/18 08:46; Admin Dose 1,000 MG; Start 06/16/18 at 18:00 Ascorbic Acid (Vitamin C) 500 mg DAILY PO Last administered on 07/08/18 08:45; Admin Dose 500 MG; Start 06/17/18 at 09:00; Stop 08/16/18 at 08:59 Guaifenesin/ Codeine Phosphate (Robitussin Ac Liquid Cup) 5 ml Q4H PRN PO cough Last administered on 06/18/18 20:25; Admin Dose 5 ML; Start 06/18/18 at 12:00 Rifampin (Rifampin) 600 mg DAILY PO Last administered on 07/08/18 08:45; Admin Dose 600 MG; Start 06/20/18 at 14:30 Glimepiride (Amaryl) 4 mg QHS PO Last administered on 07/07/18 20:57; Admin Dose 4 MG; Start 06/25/18 at 21:00 Glimepiride (Amaryl) 2 mg AC BREAKFAST PO Last administered on 07/08/18 08:46; Admin Dose 2 MG; Start 06/26/18 at 07:00 Vancomycin HCl (Vanco Iv Per Pharmacy) VANCOMYCIN PER PHARMACY PER PROTOCOL XX ; Start 06/28/18 at 16:00 IV Flush (NS 10 ml) 10 ml PRN PRN IV FLUSH LINE; Start 06/28/18 at 18:30 Magnesium Citrate (Citroma) 300 ml DAILY PRN PO constipation Last administered on 07/04/18 21:01; Admin Dose 300 ML; Start 06/29/18 at 15:00 Zolpidem Tartrate (Ambien) 10 mg HS PRN PO insomnia Last administered on 06/29/18 21:55; Admin Dose 10 MG; Start 06/29/18 at 17:00 Multi-Ingredient Ointment (Eucerin Cream) 1 applic BID TOP Last administered on 07/08/18 08:48; Admin Dose 1 APPLIC; Start 07/01/18 at 21:30 Insulin Human NPH (Humulin N) 12 unit DAILY@20 SC Last administered on 4/19/19at 21:05; Admin Dose 12 UNIT; Start 07/02/18 at 20:00 Alteplase, Recombinant (Cathflo (Activase)) 2 mg MAY REPEAT X1 PRN CATHETER IF CATHETER REMAINS OCCULUDED; Start 07/05/18 at 18:00 Vancomycin HCl 250 ml @ 125 mls/hr Q8H IVPB Last administered on 07/08/18at 13:05; Admin Dose 125 MLS/HR; Start 07/07/18 at 20:00 IV Flush (NS 10 ml) 10 ml PRN PRN IV FLUSH LINE; Start 07/07/18 at 19:00 Miscellaneous Information (*Rx Drug Level Order Reminder*) VANCO TROUGH ON 06/20... 1100 ONCE XX ; Start 07/09/18 at 11:00; Stop 07/09/18 at 11:01 DAVE HAMMONDS MD Jul 08, 2018 13:34
[2018-07-08 14:59] VITALS: BP 111/82; PULSE 100; RESP 17
--- NOTE | 2018-07-08 17:52 | CONS ---
Consultation Date/Type/Reason Admit Date/Time Jun 08, 2018 at 23:53 Initial Consult Date SUBJECTIVE: No acute events over night. No fevers. VS: stable T: 98.2 LABS: reviewed. AFB smears negative 3 sets, cocci neg Microbiology: Blood culture on June 08 grew MRSA, repeat blood cultures negative, sputum culture on June 16 grew Talia albicans and MRSA. Serology for HIV negative Antimicrobials: Rifampin and Vanco Physical examination: GEN: Well-developed, middle-aged woman, who is alert in no distress. HENT: Head atraumatic normocephalic, sclera nonicteric. Neck is supple PULM: chest rise symmetrical, breath sounds diminished bases. Heart: S1-S2. Abdomen: soft bowel sounds present. Extremities without cyanosis. Assessment: 1. S/p sepsis 2. 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 Necrotizing MRSA pneumonia with areas of cavitation per CT ?septic emboli 4. Homelessness 5. Poorly controlled diabetes 6. Meth amphetamine abuse Plan: Pt remains stable. Will continue IV Vanco for 6 weeks. Last dose August 05. Pending SNF placement. Requesting Provider: HAYDEE RAYO Date/Time of Note DATE: 07/08/18 TIME: 17:50 Exam/Review of Systems Exam Vitals Vital Signs Date Temp Pulse Resp B/P (MAP) Pulse Ox O2 O2 Flow FiO2 Time Delivery Rate 07/08/18 98.2 100 17 111/82 94 Room Air 14:59 (92) 07/07/18 23:34 Intake and Output 07/07/18 07/07/18 07/08/18 1414:59 22:59 06:59 IntakeIntake Total 800 ml 860 ml 490 ml BalanceBalance 800 ml 860 ml 490 ml Results Result Diagram: 07/07/18 1039 07/08/18 0547 Results 24hrs Laboratory Tests Test 07/07/18 21:01 07/08/18 01:25 07/08/18 05:47 07/08/18 08:04 Bedside Glucose 206 160 114 Blood Urea Nitrogen 12 Creatinine 0.29 L Test 07/08/18 11:59 07/08/18 17:30 Bedside Glucose 115 153 Medications Medication Current Medications Ondansetron HCl (Zofran Inj) 4 mg Q6H PRN IV NAUSEA AND/OR VOMITING Last administered on 07/08/18at 08:50; Admin Dose 4 MG; Start 06/09/18 at 00:30 Ipratropium [place] (Atrovent 0.02% (Neb)) 0.5 mg Q2H RESP THERAPY PRN NEB SHORTNESS OF BREATH Last administered on 07/07/18at 23:32; Admin Dose 0.5 MG; Start 06/09/18 at 00:30 Acetaminophen (Tylenol Liquid) 650 mg Q6H PRN PO PAIN LEVEL 1-3 OR FEVER Last administered on 07/07/18at 17:43; Admin Dose 650 MG; Start 06/09/18 at 00:30 Docusate Sodium (Colace) 100 mg Q12H PRN PO CONSTIPATION Last administered on 06/29/18 05:59; Admin Dose 100 MG; Start 06/09/18 at 00:30 Bisacodyl (Dulcolax) 5 mg DAILY PRN PO CONSTIPATION Last administered on 06/29/18 05:58; Admin Dose 5 MG; Start 06/09/18 at 00:30 Pantoprazole (Protonix Tab) 40 mg DAILY@06 PO Last administered on 07/08/18at 05:43; Admin Dose 40 MG; Start 06/09/18 at 06:00 Diagnostic Test (Pha) (Accu-Chek) 1 ea 02 XX Last administered on 07/05/18at 01:50; Admin Dose 1 EA; Start 06/10/18 at 02:00 Insulin Aspart (Novolog Insulin Pen) NOVOLOG *MILD* ALGORITHM WITH MEALS BEDTIME SC Last administered on 07/07/18at 21:03; Admin Dose 1 UNIT; Start 06/09/18 at 18:00 Miscellaneous Information 1 ea NOTE XX ; Start 06/09/18 at 14:30 Glucose (Glutose) 15 gm Q15M PRN PO DECREASED GLUCOSE; Start 06/09/18 at 14:30 Glucose (Glutose) 22.5 gm Q15M PRN PO DECREASED GLUCOSE; Start 06/09/18 at 14:30 Dextrose (D50w Syringe) 25 ml Q15M PRN IV DECREASED GLUCOSE Last administered on 06/29/18at 12:11; Admin Dose 25 ML; Start 06/09/18 at 14:30 Dextrose (D50w Syringe) 50 ml Q15M PRN IV DECREASED GLUCOSE; Start 06/09/18 at 14:30 Glucagon (Glucagen) 1 mg Q15M PRN IM DECREASED GLUCOSE; Start 06/09/18 at 14:30 Glucose (Glutose) 15 gm Q15M PRN BUCCAL DECREASED GLUCOSE; Start 06/09/18 at 14:30 Ferrous Sulfate (Ferrous Sulfate (Ec)) 325 mg DAILY PO Last administered on 07/08/18 08:45; Admin Dose 325 MG; Start 06/13/18 at 10:30; Stop 08/12/18 at 10:29 Levalbuterol (Xopenex Neb) 1.25 mg Q6H RESP THERAPY PRN HHN sob/wheezing Last administered on 07/07/18 23:32; Admin Dose 1.25 MG; Start 06/14/18 at 09:00 Guaifenesin/ Dextromethorphan (Mucinex Dm) 1 tab BID PO Last administered on 07/08/18 08:45; Admin Dose 1 TAB; Start 06/14/18 at 09:30 Metformin HCl (Glucophage) 1,000 mg BID WITH MEALS PO Last administered on 07/08/18 08:46; Admin Dose 1,000 MG; Start 06/16/18 at 18:00 Ascorbic Acid (Vitamin C) 500 mg DAILY PO Last administered on 07/08/18 08:45; Admin Dose 500 MG; Start 06/17/18 at 09:00; Stop 08/16/18 at 08:59 Guaifenesin/ Codeine Phosphate (Robitussin Ac Liquid Cup) 5 ml Q4H PRN PO cough Last administered on 06/18/18 20:25; Admin Dose 5 ML; Start 06/18/18 at 12:00 Rifampin (Rifampin) 600 mg DAILY PO Last administered on 07/08/18 08:45; Admin Dose 600 MG; Start 06/20/18 at 14:30 Glimepiride (Amaryl) 4 mg QHS PO Last administered on 07/07/18 20:57; Admin Dose 4 MG; Start 06/25/18 at 21:00 Glimepiride (Amaryl) 2 mg AC BREAKFAST PO Last administered on 07/08/18 08:46; Admin Dose 2 MG; Start 06/26/18 at 07:00 Vancomycin HCl (Vanco Iv Per Pharmacy) VANCOMYCIN PER PHARMACY PER PROTOCOL XX ; Start 06/28/18 at 16:00 IV Flush (NS 10 ml) 10 ml PRN PRN IV FLUSH LINE; Start 06/28/18 at 18:30 Magnesium Citrate (Citroma) 300 ml DAILY PRN PO constipation Last administered on 07/04/18at 21:01; Admin Dose 300 ML; Start 06/29/18 at 15:00 Zolpidem Tartrate (Ambien) 10 mg HS PRN PO insomnia Last administered on 06/29/18at 21:55; Admin Dose 10 MG; Start 06/29/18 at 17:00 Multi-Ingredient Ointment (Eucerin Cream) 1 applic BID TOP Last administered on 07/08/18at 08:48; Admin Dose 1 APPLIC; Start 07/01/18 at 21:30 Insulin Human NPH (Humulin N) 12 unit DAILY@20 SC Last administered on at 21:05; Admin Dose 12 UNIT; Start 07/02/18 at 20:00 Alteplase, Recombinant (Cathflo (Activase)) 2 mg MAY REPEAT X1 PRN CATHETER IF CATHETER REMAINS OCCULUDED; Start 07/05/18 at 18:00 Vancomycin HCl 250 ml @ 125 mls/hr Q8H IVPB Last administered on 07/08/18at 13:05; Admin Dose 125 MLS/HR; Start 07/07/18 at 20:00 IV Flush (NS 10 ml) 10 ml PRN PRN IV FLUSH LINE; Start 07/07/18 at 19:00 Miscellaneous Information (*Rx Drug Level Order Reminder*) VANCO TROUGH ON 06/20... 1100 ONCE XX ; Start 07/09/18 at 11:00; Stop 07/09/18 at 11:01 HAYLEE MACIAS Jul 08, 2018 17:52
[2018-07-08 20:00] VITALS: BP 132/71; PULSE 100; RESP 18
[2018-07-08] MEDS: NPH, HUMAN INSULIN ISOPHANE 3ML VIAL SC SCH (20:09)
[2018-07-08] MEDS: GLIMEPIRIDE 4 MG TAB PO SCH (20:10)
[2018-07-09] MEDS: ACCU-CHEK XX SCH (02:00)
[2018-07-09 02:15] VITALS: BP 111/75; PULSE 109; RESP 18
[2018-07-09] MEDS: VANCOMYCIN 1 GM 250 ML IVPB SCH ×3 (05:23→20:41)
[2018-07-09] MEDS: PANTOPRAZOLE (EC) 40 MG TAB PO SCH (05:23)
[2018-07-09] MEDS: metFORMIN 500 MG TAB PO SCH ×2 (07:42→17:18)
[2018-07-09] MEDS: GLIMEPIRIDE 2 MG TAB PO SCH (07:42)
[2018-07-09] MEDS: INSULIN ASPART [NOVOLOG] 3 ML PEN SC SCH ×4 (07:44→20:42)
[2018-07-09] MEDS: ONDANSETRON 4 MG INJ IV PRN (08:13)
[2018-07-09] MEDS: FERROUS SULFATE (EC) 325 MG TAB PO SCH (08:14)
[2018-07-09] MEDS: ASCORBIC ACID 500 MG TAB PO SCH (08:15)
[2018-07-09] MEDS: RIFAMPIN 300 MG CAP PO SCH (08:15)
[2018-07-09] MEDS: GUAIFENESIN/DM (SR) TAB PO SCH ×2 (08:17→20:42)
[2018-07-09] MEDS: EUCERIN 113 GM CR TOP SCH ×2 (08:18→20:43)
[2018-07-09 08:42] VITALS: BP 105/65; PULSE 115; RESP 18
--- NOTE | 2018-07-09 12:02 | PN ---
Date/Time of Note Date/Time of Note DATE: 07/09/18 TIME: 11:59 Assessment/Plan VTE Prophylaxis Risk score (from N[facility])>0 risk: 2 SCD applied (from [facility] [place]): No SCD contraindicated: low risk/ambulating Pharmacological prophylaxis: NA/contraindicated Pharm contraindication: low risk/ambulating Lines/Catheters IV Catheter Type (from [facility]): PICC Line Central line still needed: Yes Urinary Cath still in place: No Assessment/Plan Assessment/Plan 1. 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 BITA performed with thickening/densities on tricuspid valve. Unable to rule out vegetation. - ID on board and appreciate recommendations. Will treat for endocarditis in setting of MRSA bacteremia and hx drug use 2. MRSA bacteremia- resolved - Repeat blood culture negative. Remains afebrile with nl WBC. - ID on board and appreciate recommendations. 3. Poorly controlled diabetes- improved - A1c noted - sugars remain controlled - Endocrinology consultation appreciated. Continue on current insulin and glimepiride. 4. Extensive bilateral multilobar pneumonia - Patient found with MRSA in sputum and CT scan showing cavitating lesions but improvement in bilateral infiltrate - Pulm on board and continue current treatment. Cocci studies. After review of recent CT scan concern for septic emboli. BITA performed - Repeat CT scan performed this am showing "Multifocal bilateral areas of pneumonia are again present and have diminished in overall size however there is interval development of multiple foci of lucencies within the areas of consolidation suggestive for bronchiectasis or developing small cavitary lesions." - ID recommendations appreciated 5. Homelessness - SW on board 6. History of meth abuse - Patient states last use was 2 weeks prior to admission. Counseled on cessation. 7. Tobacco use - Cessation advised. 8. Iron Deficient anemia. - Continue oral iron. - H&H stable. 9. Mild asthma. - Currently stable 10. Disposition - Medically stable for discharge once accepted to [facility] Result Diagram: 07/07/18 1039 07/09/18 1055 Results 24hrs Laboratory Tests Test 07/08/18 17:30 07/08/18 20:05 07/09/18 07:37 07/09/18 10:55 Bedside Glucose 153 136 238 H Blood Urea Nitrogen 13 Creatinine 0.36 L Vancomycin Level 12.5 Trough Subjective 24 Hr Interval Summary Free Text/Dictation Patient denies any acute issues. No new events. Exam/Review of Systems Exam Vitals Vital Signs Date Temp Pulse Resp B/P (MAP) Pulse Ox O2 O2 Flow FiO2 Time Delivery Rate 07/09/18 98.6 115 18 105/65 97 Room Air 08:42 (78) 07/07/18 21 23:34 Intake and Output 07/08/18 07/08/18 07/09/18 1414:59 22:59 06:59 IntakeIntake Total 1050 ml 650 ml 800 ml BalanceBalance 1050 ml 650 ml 800 ml Exam General: Patient is laying in bed and answers questions appropriately Respiratory: Diminished breath sounds. no wheezing Cardiovascular: regular rate and rhythm, no obvious murmurs Gastrointestinal: soft, non-tender to palpation, bowel sounds heard. Neurological: Moves all extremities spontaneously Skin: No new skin lesions Results Results 24hrs Laboratory Tests Test 07/08/18 17:30 07/08/18 20:05 07/09/18 07:37 07/09/18 10:55 Bedside Glucose 153 136 238 H Blood Urea Nitrogen 13 Creatinine 0.36 L Vancomycin Level 12.5 Trough Medications Medication Current Medications Ondansetron HCl (Zofran Inj) 4 mg Q6H PRN IV NAUSEA AND/OR VOMITING Last administered on 07/09/18at 08:13; Admin Dose 4 MG; Start 06/09/18 at 00:30 Ipratropium [place] (Atrovent 0.02% (Neb)) 0.5 mg Q2H RESP THERAPY PRN NEB SHORTNESS OF BREATH Last administered on 07/07/18at 23:32; Admin Dose 0.5 MG; Start 06/09/18 at 00:30 Acetaminophen (Tylenol Liquid) 650 mg Q6H PRN PO PAIN LEVEL 1-3 OR FEVER Last administered on 07/07/18at 17:43; Admin Dose 650 MG; Start 06/09/18 at 00:30 Docusate Sodium (Colace) 100 mg Q12H PRN PO CONSTIPATION Last administered on 06/29/18 05:59; Admin Dose 100 MG; Start 06/09/18 at 00:30 Bisacodyl (Dulcolax) 5 mg DAILY PRN PO CONSTIPATION Last administered on 06/29/18 05:58; Admin Dose 5 MG; Start 06/09/18 at 00:30 Pantoprazole (Protonix Tab) 40 mg DAILY@06 PO Last administered on 07/09/18at 05:23; Admin Dose 40 MG; Start 06/09/18 at 06:00 Diagnostic Test (Pha) (Accu-Chek) 1 ea 02 XX Last administered on 07/05/18at 01:50; Admin Dose 1 EA; Start 06/10/18 at 02:00 Insulin Aspart (Novolog Insulin Pen) NOVOLOG *MILD* ALGORITHM WITH MEALS BEDTIME SC Last administered on 07/09/18at 07:44; Admin Dose 3 UNIT; Start 06/09/18 at 18:00 Miscellaneous Information 1 ea NOTE XX ; Start 06/09/18 at 14:30 Glucose (Glutose) 15 gm Q15M PRN PO DECREASED GLUCOSE; Start 06/09/18 at 14:30 Glucose (Glutose) 22.5 gm Q15M PRN PO DECREASED GLUCOSE; Start 06/09/18 at 14:30 Dextrose (D50w Syringe) 25 ml Q15M PRN IV DECREASED GLUCOSE Last administered on 06/29/18at 12:11; Admin Dose 25 ML; Start 06/09/18 at 14:30 Dextrose (D50w Syringe) 50 ml Q15M PRN IV DECREASED GLUCOSE; Start 06/09/18 at 14:30 Glucagon (Glucagen) 1 mg Q15M PRN IM DECREASED GLUCOSE; Start 06/09/18 at 14:30 Glucose (Glutose) 15 gm Q15M PRN BUCCAL DECREASED GLUCOSE; Start 06/09/18 at 14:30 Ferrous Sulfate (Ferrous Sulfate (Ec)) 325 mg DAILY PO Last administered on 07/09/18at 08:14; Admin Dose 325 MG; Start 06/13/18 at 10:30; Stop 08/12/18 at 10:29 Levalbuterol (Xopenex Neb) 1.25 mg Q6H RESP THERAPY PRN HHN sob/wheezing Last administered on 07/07/18at 23:32; Admin Dose 1.25 MG; Start 06/14/18 at 09:00 Guaifenesin/ Dextromethorphan (Mucinex Dm) 1 tab BID PO Last administered on 07/09/18at 08:17; Admin Dose 1 TAB; Start 06/14/18 at 09:30 Metformin HCl (Glucophage) 1,000 mg BID WITH MEALS PO Last administered on 07/09/18 07:42; Admin Dose 1,000 MG; Start 06/16/18 at 18:00 Ascorbic Acid (Vitamin C) 500 mg DAILY PO Last administered on 07/09/18 08:15; Admin Dose 500 MG; Start 06/17/18 at 09:00; Stop 08/16/18 at 08:59 Guaifenesin/ Codeine Phosphate (Robitussin Ac Liquid Cup) 5 ml Q4H PRN PO cough Last administered on 06/18/18 20:25; Admin Dose 5 ML; Start 06/18/18 at 12:00 Rifampin (Rifampin) 600 mg DAILY PO Last administered on 07/09/18 08:15; Admin Dose 600 MG; Start 06/20/18 at 14:30 Glimepiride (Amaryl) 4 mg QHS PO Last administered on 07/08/18 20:10; Admin Dose 4 MG; Start 06/25/18 at 21:00 Glimepiride (Amaryl) 2 mg AC BREAKFAST PO Last administered on 07/09/18 07:42; Admin Dose 2 MG; Start 06/26/18 at 07:00 Vancomycin HCl (Vanco Iv Per Pharmacy) VANCOMYCIN PER PHARMACY PER PROTOCOL XX ; Start 06/28/18 at 16:00 IV Flush (NS 10 ml) 10 ml PRN PRN IV FLUSH LINE; Start 06/28/18 at 18:30 Magnesium Citrate (Citroma) 300 ml DAILY PRN PO constipation Last administered on 07/04/18 21:01; Admin Dose 300 ML; Start 06/29/18 at 15:00 Zolpidem Tartrate (Ambien) 10 mg HS PRN PO insomnia Last administered on 06/29/18 21:55; Admin Dose 10 MG; Start 06/29/18 at 17:00 Multi-Ingredient Ointment (Eucerin Cream) 1 applic BID TOP Last administered on 07/09/18 08:18; Admin Dose 1 APPLIC; Start 07/01/18 at 21:30 Insulin Human NPH (Humulin N) 12 unit DAILY@20 SC Last administered on 07/08/18 20:09; Admin Dose 12 UNIT; Start 07/02/18 at 20:00 Alteplase, Recombinant (Cathflo (Activase)) 2 mg MAY REPEAT X1 PRN CATHETER IF CATHETER REMAINS OCCULUDED; Start 07/05/18 at 18:00 Vancomycin HCl 250 ml @ 125 mls/hr Q8H IVPB Last administered on 07/09/18at 05:23; Admin Dose 125 MLS/HR; Start 07/07/18 at 20:00 IV Flush (NS 10 ml) 10 ml PRN PRN IV FLUSH LINE; Start 07/07/18 at 19:00 DAVE HAMMONDS MD Jul 09, 2018 12:02
[2018-07-09 15:08] VITALS: BP 110/60; PULSE 95; RESP 18
--- NOTE | 2018-07-09 17:15 | CONS ---
Consultation Date/Type/Reason Admit Date/Time Jun 08, 2018 at 23:53 Initial Consult Date SUBJECTIVE: No acute events over night. No fevers. VS: stable T: 98.5 LABS: reviewed. AFB smears negative 3 sets, cocci neg Microbiology: Blood culture on June 08 grew MRSA, repeat blood cultures negative, sputum culture on June 16 grew Talia albicans and MRSA. Serology for HIV negative Antimicrobials: Rifampin and Vanco Physical examination: GEN: Well-developed, middle-aged woman, who is alert in no distress. HENT: Head atraumatic normocephalic, sclera nonicteric. Neck is supple PULM: chest rise symmetrical, breath sounds diminished bases. Heart: S1-S2. Abdomen: soft bowel sounds present. Extremities without cyanosis. Assessment: 1. S/p sepsis 2. 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 Necrotizing MRSA pneumonia with areas of cavitation per CT ?septic emboli 4. Homelessness 5. Poorly controlled diabetes 6. Meth amphetamine abuse Plan: Pt remains stable. Will continue IV Vanco for 6 weeks. Last dose August 05. Pending SNF placement. Requesting Provider: HYADEE RAYO Date/Time of Note DATE: 07/09/18 TIME: 17:14 Exam/Review of Systems Exam Vitals Vital Signs Date Temp Pulse Resp B/P (MAP) Pulse Ox O2 O2 Flow FiO2 Time Delivery Rate 07/09/18 98.5 95 18 110/60 97 Room Air 15:08 (77) 07/07/18 23:34 Intake and Output 07/08/18 07/08/18 07/09/18 1515:00 23:00 07:00 IntakeIntake Total 1050 ml 650 ml 800 ml BalanceBalance 1050 ml 650 ml 800 ml Results Result Diagram: 07/07/18 1039 07/09/18 1055 Results 24hrs Laboratory Tests Test 07/08/18 17:30 07/08/18 20:05 07/09/18 07:37 07/09/18 10:55 Bedside Glucose 153 136 238 H Blood Urea Nitrogen 13 Creatinine 0.36 L Vancomycin Level 12.5 Trough Test 07/09/18 12:07 Bedside Glucose 163 Medications Medication Current Medications Ondansetron HCl (Zofran Inj) 4 mg Q6H PRN IV NAUSEA AND/OR VOMITING Last administered on 07/09/18at 08:13; Admin Dose 4 MG; Start 3/22/19 at 00:30 Ipratropium [place] (Atrovent 0.02% (Neb)) 0.5 mg Q2H RESP THERAPY PRN NEB SHORTNESS OF BREATH Last administered on 07/07/18at 23:32; Admin Dose 0.5 MG; Start 06/09/18 at 00:30 Acetaminophen (Tylenol Liquid) 650 mg Q6H PRN PO PAIN LEVEL 1-3 OR FEVER Last administered on 07/07/18at 17:43; Admin Dose 650 MG; Start 06/09/18 at 00:30 Docusate Sodium (Colace) 100 mg Q12H PRN PO CONSTIPATION Last administered on 06/29/18 05:59; Admin Dose 100 MG; Start 06/09/18 at 00:30 Bisacodyl (Dulcolax) 5 mg DAILY PRN PO CONSTIPATION Last administered on 05:58; Admin Dose 5 MG; Start 06/09/18 at 00:30 Pantoprazole (Protonix Tab) 40 mg DAILY@06 PO Last administered on 07/09/18at 05:23; Admin Dose 40 MG; Start 06/09/18 at 06:00 Diagnostic Test (Pha) (Accu-Chek) 1 ea 02 XX Last administered on 07/05/18at 01:50; Admin Dose 1 EA; Start 06/10/18 at 02:00 Insulin Aspart (Novolog Insulin Pen) NOVOLOG *MILD* ALGORITHM WITH MEALS BEDTIME SC Last administered on 07/09/18at 12:14; Admin Dose 1 UNIT; Start 06/09/18 at 18:00 Miscellaneous Information 1 ea NOTE XX ; Start 06/09/18 at 14:30 Glucose (Glutose) 15 gm Q15M PRN PO DECREASED GLUCOSE; Start 06/09/18 at 14:30 Glucose (Glutose) 22.5 gm Q15M PRN PO DECREASED GLUCOSE; Start 06/09/18 at 14:3 0 Dextrose (D50w Syringe) 25 ml Q15M PRN IV DECREASED GLUCOSE Last administered on 06/29/18at 12:11; Admin Dose 25 ML; Start 06/09/18 at 14:30 Dextrose (D50w Syringe) 50 ml Q15M PRN IV DECREASED GLUCOSE; Start 06/09/18 at 14:30 Glucagon (Glucagen) 1 mg Q15M PRN IM DECREASED GLUCOSE; Start 06/09/18 at 14:30 Glucose (Glutose) 15 gm Q15M PRN BUCCAL DECREASED GLUCOSE; Start 06/09/18 at 14:30 Ferrous Sulfate (Ferrous Sulfate (Ec)) 325 mg DAILY PO Last administered on 07/09/18 08:14; Admin Dose 325 MG; Start 06/13/18 at 10:30; Stop 08/12/18 at 10:29 Levalbuterol (Xopenex Neb) 1.25 mg Q6H RESP THERAPY PRN HHN sob/wheezing Last administered on 07/07/18 23:32; Admin Dose 1.25 MG; Start 06/14/18 at 09:00 Guaifenesin/ Dextromethorphan (Mucinex Dm) 1 tab BID PO Last administered on 07/09/18 08:17; Admin Dose 1 TAB; Start 06/14/18 at 09:30 Metformin HCl (Glucophage) 1,000 mg BID WITH MEALS PO Last administered on 07/09/18 07:42; Admin Dose 1,000 MG; Start 06/16/18 at 18:00 Ascorbic Acid (Vitamin C) 500 mg DAILY PO Last administered on 07/09/18 08:15; Admin Dose 500 MG; Start 06/17/18 at 09:00; Stop 08/16/18 at 08:59 Guaifenesin/ Codeine Phosphate (Robitussin Ac Liquid Cup) 5 ml Q4H PRN PO cough Last administered on 06/18/18 20:25; Admin Dose 5 ML; Start 06/18/18 at 12:00 Rifampin (Rifampin) 600 mg DAILY PO Last administered on 07/09/18 08:15; Admin Dose 600 MG; Start 06/20/18 at 14:30 Glimepiride (Amaryl) 4 mg QHS PO Last administered on 07/08/18 20:10; Admin Dose 4 MG; Start 06/25/18 at 21:00 Glimepiride (Amaryl) 2 mg AC BREAKFAST PO Last administered on 07/09/18at 0 7:42; Admin Dose 2 MG; Start 06/26/18 at 07:00 Vancomycin HCl (Vanco Iv Per Pharmacy) VANCOMYCIN PER PHARMACY PER PROTOCOL XX ; Start 06/28/18 at 16:00 IV Flush (NS 10 ml) 10 ml PRN PRN IV FLUSH LINE; Start 06/28/18 at 18:30 Magnesium Citrate (Citroma) 300 ml DAILY PRN PO constipation Last administered on 07/04/18at 21:01; Admin Dose 300 ML; Start 06/29/18 at 15:00 Zolpidem Tartrate (Ambien) 10 mg HS PRN PO insomnia Last administered on 06/29/18at 21:55; Admin Dose 10 MG; Start 06/29/18 at 17:00 Multi-Ingredient Ointment (Eucerin Cream) 1 applic BID TOP Last administered on 07/09/18 08:18; Admin Dose 1 APPLIC; Start 07/01/18 at 21:30 Insulin Human NPH (Humulin N) 12 unit DAILY@20 SC Last administered on 07/08/18at 20:09; Admin Dose 12 UNIT; Start 07/02/18 at 20:00 Alteplase, Recombinant (Cathflo (Activase)) 2 mg MAY REPEAT X1 PRN CATHETER IF CATHETER REMAINS OCCULUDED; Start 07/05/18 at 18:00 Vancomycin HCl 250 ml @ 125 mls/hr Q8H IVPB Last administered on 07/09/18at 12:14; Admin Dose 125 MLS/HR; Start 07/07/18 at 20:00 IV Flush (NS 10 ml) 10 ml PRN PRN IV FLUSH LINE; Start 07/07/18 at 19:00 HAYLEE MACIAS Jul 09, 2018 17:15
[2018-07-09 20:00] VITALS: BP 104/68; PULSE 106; RESP 18
[2018-07-09] MEDS: NPH, HUMAN INSULIN ISOPHANE 3ML VIAL SC SCH (20:42)
[2018-07-09] MEDS: GLIMEPIRIDE 4 MG TAB PO SCH (20:42)
[2018-07-10 02:00] VITALS: BP 99/70; PULSE 108; RESP 18
[2018-07-10] MEDS: ACCU-CHEK XX SCH (02:00)
[2018-07-10 03:41] VITALS: BP 116/70; PULSE 106; RESP 18
[2018-07-10] MEDS: VANCOMYCIN 1 GM 250 ML IVPB SCH ×3 (04:11→21:26)
[2018-07-10] MEDS: PANTOPRAZOLE (EC) 40 MG TAB PO SCH (06:55)
[2018-07-10] MEDS: GLIMEPIRIDE 2 MG TAB PO SCH (08:22)
[2018-07-10] MEDS: FERROUS SULFATE (EC) 325 MG TAB PO SCH (08:23)
[2018-07-10] MEDS: ASCORBIC ACID 500 MG TAB PO SCH (08:23)
[2018-07-10] MEDS: RIFAMPIN 300 MG CAP PO SCH (08:23)
[2018-07-10] MEDS: metFORMIN 500 MG TAB PO SCH ×2 (08:23→17:37)
[2018-07-10] MEDS: INSULIN ASPART [NOVOLOG] 3 ML PEN SC SCH ×4 (08:23→21:29)
[2018-07-10] MEDS: EUCERIN 113 GM CR TOP SCH ×2 (08:24→21:30)
[2018-07-10] MEDS: ONDANSETRON 4 MG INJ IV PRN (08:29)
[2018-07-10] MEDS: GUAIFENESIN/DM (SR) TAB PO SCH ×2 (08:29→21:26)
[2018-07-10 08:55] VITALS: BP 96/69; PULSE 105; RESP 18
[2018-07-10] MEDS ORDERED: MAGNESIUM OXIDE 400 MG TAB PO ONE (13:00)
--- NOTE | 2018-07-10 13:19 | PN ---
Date/Time of Note Date/Time of Note DATE: 07/10/18 TIME: 13:18 Objective Vitals Vital Signs Date Temp Pulse Resp B/P (MAP) Pulse Ox O2 O2 Flow FiO2 Time Delivery Rate 07/10/18 98.4 105 18 96/69 (78) 98 08:55 07/09/18 Room Air 15:08 07/07/18 21 23:34 Intake and Output 07/09/18 07/09/18 07/10/18 1414:59 22:59 06:59 IntakeIntake Total 1420 ml 710 ml 490 ml BalanceBalance 1420 ml 710 ml 490 ml Results Result Diagram: 07/10/18 0745 07/10/18 0746 Medications Medications Current Medications Ondansetron HCl (Zofran Inj) 4 mg Q6H PRN IV NAUSEA AND/OR VOMITING Last administered on 07/10/18at 08:29; Admin Dose 4 MG; Start 06/09/18 at 00:30 Ipratropium [place] (Atrovent 0.02% (Neb)) 0.5 mg Q2H RESP THERAPY PRN NEB SHORTNESS OF BREATH Last administered on 07/07/18at 23:32; Admin Dose 0.5 MG; Start 06/09/18 at 00:30 Acetaminophen (Tylenol Liquid) 650 mg Q6H PRN PO PAIN LEVEL 1-3 OR FEVER Last administered on 07/07/18 17:43; Admin Dose 650 MG; Start 06/09/18 at 00:30 Docusate Sodium (Colace) 100 mg Q12H PRN PO CONSTIPATION Last administered on 06/29/18 05:59; Admin Dose 100 MG; Start 06/09/18 at 00:30 Bisacodyl (Dulcolax) 5 mg DAILY PRN PO CONSTIPATION Last administered on 9at 05:58; Admin Dose 5 MG; Start 06/09/18 at 00:30 Pantoprazole (Protonix Tab) 40 mg DAILY@06 PO Last administered on 07/10/18at 06:55; Admin Dose 40 MG; Start 06/09/18 at 06:00 Diagnostic Test (Pha) (Accu-Chek) 1 ea 02 XX Last administered on 07/05/18at 01:50; Admin Dose 1 EA; Start 06/10/18 at 02:00 Insulin Aspart (Novolog Insulin Pen) NOVOLOG *MILD* ALGORITHM WITH MEALS BEDTIME SC Last administered on 07/10/18at 08:23; Admin Dose 1 UNIT; Start 06/09/18 at 18:00 Miscellaneous Information 1 ea NOTE XX ; Start 06/09/18 at 14:30 Glucose (Glutose) 15 gm Q15M PRN PO DECREASED GLUCOSE; Start 06/09/18 at 14:30 Glucose (Glutose) 22.5 gm Q15M PRN PO DECREASED GLUCOSE; Start 06/09/18 at 14:30 Dextrose (D50w Syringe) 25 ml Q15M PRN IV DECREASED GLUCOSE Last administered on 06/29/18at 12:11; Admin Dose 25 ML; Start 06/09/18 at 14:30 Dextrose (D50w Syringe) 50 ml Q15M PRN IV DECREASED GLUCOSE; Start 06/09/18 at 14:30 Glucagon (Glucagen) 1 mg Q15M PRN IM DECREASED GLUCOSE; Start 06/09/18 at 14:30 Glucose (Glutose) 15 gm Q15M PRN BUCCAL DECREASED GLUCOSE; Start 06/09/18 at 14:30 Ferrous Sulfate (Ferrous Sulfate (Ec)) 325 mg DAILY PO Last administered on 07/10/18at 08:23; Admin Dose 325 MG; Start 06/13/18 at 10:30; Stop 08/12/18 at 10:29 Levalbuterol (Xopenex Neb) 1.25 mg Q6H RESP THERAPY PRN HHN sob/wheezing Last administered on 07/07/18at 23:32; Admin Dose 1.25 MG; Start 06/14/18 at 09:00 Guaifenesin/ Dextromethorphan (Mucinex Dm) 1 tab BID PO Last administered on 07/10/18at 08:29; Admin Dose 1 TAB; Start 06/14/18 at 09:30 Metformin HCl (Glucophage) 1,000 mg BID WITH MEALS PO Last administered on 07/10/18at 08:23; Admin Dose 1,000 MG; Start 06/16/18 at 18:00 Ascorbic Acid (Vitamin C) 500 mg DAILY PO Last administered on 07/10/18at 08:23; Admin Dose 500 MG; Start 06/17/18 at 09:00; Stop 08/16/18 at 08:59 Guaifenesin/ Codeine Phosphate (Robitussin Ac Liquid Cup) 5 ml Q4H PRN PO cough Last administered on 06/18/18 20:25; Admin Dose 5 ML; Start 06/18/18 at 12:00 Rifampin (Rifampin) 600 mg DAILY PO Last administered on 07/10/18 08:23; Admin Dose 600 MG; Start 06/20/18 at 14:30 Glimepiride (Amaryl) 4 mg QHS PO Last administered on 07/09/18 20:42; Admin Dose 4 MG; Start 06/25/18 at 21:00 Glimepiride (Amaryl) 2 mg AC BREAKFAST PO Last administered on 07/10/18 08:22 ; Admin Dose 2 MG; Start 06/26/18 at 07:00 Vancomycin HCl (Vanco Iv Per Pharmacy) VANCOMYCIN PER PHARMACY PER PROTOCOL XX ; Start 06/28/18 at 16:00 IV Flush (NS 10 ml) 10 ml PRN PRN IV FLUSH LINE; Start 06/28/18 at 18:30 Magnesium Citrate (Citroma) 300 ml DAILY PRN PO constipation Last administered on 07/04/18 21:01; Admin Dose 300 ML; Start 06/29/18 at 15:00 Zolpidem Tartrate (Ambien) 10 mg HS PRN PO insomnia Last administered on 06/29/18 21:55; Admin Dose 10 MG; Start 06/29/18 at 17:00 Multi-Ingredient Ointment (Eucerin Cream) 1 applic BID TOP Last administered on 07/10/18 08:24; Admin Dose 1 APPLIC; Start 07/01/18 at 21:30 Insulin Human NPH (Humulin N) 12 unit DAILY@20 SC Last administered on 07/09/18at 20:42; Admin Dose 12 UNIT; Start 07/02/18 at 20:00 Alteplase, Recombinant (Cathflo (Activase)) 2 mg MAY REPEAT X1 PRN CATHETER IF CATHETER REMAINS OCCULUDED; Start 07/05/18 at 18:00 Vancomycin HCl 250 ml @ 125 mls/hr Q8H IVPB Last administered on 07/10/18 12:14; Admin Dose 125 MLS/HR; Start 07/07/18 at 20:00 IV Flush (NS 10 ml) 10 ml PRN PRN IV FLUSH LINE; Start 07/07/18 at 19:00 Miscellaneous Information (*Order Clarification Bulletin) MEDICATION REQUIRES CLARIFICATI... Q8H XX ; Start 07/09/18 at 18:00; Stop 07/11/18 at 17:59 VTE Prophylaxis Risk score (from [facility]0 risk: 2 SCD applied (from [facility] [place]): No SCD contraindication: other Lines/Catheters IV Catheter Type: Garcia in Place: No Assessment/Plan Hospital Course Subjective doing okay, no acute complaints Objective Physical exam General: Patient is laying in bed and answers questions appropriately Mentation: Patient is alert and oriented 4, Head: Normocephalic atraumatic Eyes: EOMI, pupils reactive to light Neck: Supple, nontender, midline Respiratory: Coarse to auscultation bilaterally Cardiovascular: regular rate, no obvious murmurs Gastrointestinal: non-tender to palpation, bowel sounds heard. Neurological: Moves all extremities spontaneously Skin: No new skin lesions Assessment/Plan 1. 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 BITA performed with thickening/densities on tricuspid valve. Unable to rule out vegetation. - ID on board and appreciate recommendations. Will treat for endocarditis in setting of MRSA bacteremia and hx drug use 2. MRSA bacteremia- resolved - Repeat blood culture negative. Remains afebrile with nl WBC. - ID on board and appreciate recommendations. 3. Poorly controlled diabetes- improved - A1c noted - sugars remain controlled - Endocrinology consultation appreciated. Continue on current insulin and glimepiride. 4. Extensive bilateral multilobar pneumonia - Patient found with MRSA in sputum and CT scan showing cavitating lesions but improvement in bilateral infiltrate - Pulm on board and continue current treatment. Cocci studies. After review of recent CT scan concern for septic emboli. BITA performed - Repeat CT scan performed this am showing "Multifocal bilateral areas of pneumonia are again present and have diminished in overall size however there is interval development of multiple foci of lucencies within the areas of consolidation suggestive for bronchiectasis or developing small cavitary lesions." - ID recommendations appreciated 5. Homelessness - SW on board 6. History of meth abuse - Patient states last use was 2 weeks prior to admission. Counseled on cessation. 7. Tobacco use - Cessation advised. 8. Iron Deficient anemia. - Continue oral iron. - H&H stable. 9. Mild asthma. - Currently stable Constipation -Encourage use of laxatives as needed 10. Disposition - Medically stable for discharge once accepted to SNF HAYDEE RAYO Jul 10, 2018 13:19
[2018-07-10 14:37] VITALS: BP 109/75; PULSE 104; RESP 18
--- NOTE | 2018-07-10 14:50 | CONS ---
Assessment/Plan Assessment/Plan Hospital Course (Demo Recall) Alert, feels good AFB smears negative 3 sets, cocci neg Microbiology: Blood culture on June 08 grew MRSA, repeat blood cultures negative, sputum culture on June 16 grew Talia albicans and MRSA. Serology for HIV negative Antimicrobials: Rifampin Vanco Physical examination: Well-developed middle-aged woman who is alert in no distress. Head atraumatic normocephalic sclera nonicteric. Neck is supple chest rise symmetrical breath sounds diminished bases. Heart S1-S2. Abdomen s oft bowel sounds present. Extremities without cyanosis. Assessment: 1. S/p sepsis 2. 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 Necrotizing MRSA pneumonia with areas of cavitation per CT ?septic emboli 4. Homelessness 5. Poorly controlled diabetes 6. Meth amphetamine abuse Plan: Remains stable, pending discharge arrangements on IV Vanco last dose August 05 Consultation Date/Type/Reason Admit Date/Time Jun 08, 2018 at 23:53 Initial Consult Date Type of Consult id Requesting Provider: HAYDEE RAYO Date/Time of Note DATE: 07/10/18 TIME: 14:50 Exam/Review of Systems Exam Vitals Vital Signs Date Temp Pulse Resp B/P (MAP) Pulse Ox O2 O2 Flow FiO2 Time Delivery Rate 07/10/18 98.0 104 18 109/75 97 14:37 (86) 07/09/18 Room Air 15:08 07/07/18 21 23:34 Intake and Output 07/09/18 07/09/18 07/10/18 1515:00 23:00 07:00 IntakeIntake Total 1420 ml 710 ml 490 ml BalanceBalance 1420 ml 710 ml 490 ml Results Result Diagram: 07/10/18 0745 07/10/18 0746 Results 24hrs Laboratory Tests Test 07/09/18 17:16 07/09/18 20:40 07/10/18 07:44 07/10/18 07:45 Bedside Glucose 258 H 169 Serum HCG, NEGATIVE Qualitative White Blood Count 7.8 Red Blood Count 4.09 L Hemoglobin 11.9 L Hematocrit 37.4 Mean Corpuscular 91.4 Volume Mean Corpuscular 29.1 Hemoglobin Mean Corpuscular 31.8 L Hemoglobin Concent Red Cell 17.9 H Distribution Width Platelet Count 250 Mean Platelet Volume 9.6 Immature 0.500 H Granulocytes % Neutrophils % 57.6 Lymphocytes % 31.6 Monocytes % 4.9 Eosinophils % 4.5 Basophils % 0.9 Nucleated Red Blood 0.0 Cells % Immature 0.040 H Granulocytes # Neutrophils # 4.5 Lymphocytes # 2.5 Monocytes # 0.4 Eosinophils # 0.4 Basophils # 0.1 Nucleated Red Blood 0.0 Cells # Test 07/10/18 07:46 07/10/18 07:57 07/10/18 12:10 Sodium Level 137 Potassium Level 4.3 Chloride Level 104 Carbon Dioxide Level 22 Anion Gap 11 Blood Urea Nitrogen 13 Creatinine 0.33 L Glucose Level 171 Calcium Level 9.1 Phosphorus Level 4.7 Magnesium Level 1.6 L Albumin 3.8 Bedside Glucose 167 138 Medications Medication Current Medications Ondansetron HCl (Zofran Inj) 4 mg Q6H PRN IV NAUSEA AND/OR VOMITING Last administered on 07/10/18 08:29; Admin Dose 4 MG; Start 06/09/18 at 00:30 Ipratropium [place] (Atrovent 0.02% (Neb)) 0.5 mg Q2H RESP THERAPY PRN NEB SHORTNESS OF BREATH Last administered on 07/07/18 23:32; Admin Dose 0.5 MG; Start 06/09/18 at 00:30 Acetaminophen (Tylenol Liquid) 650 mg Q6H PRN PO PAIN LEVEL 1-3 OR FEVER Last administered on 07/07/18 17:43; Admin Dose 650 MG; Start 06/09/18 at 00:30 Docusate Sodium (Colace) 100 mg Q12H PRN PO CONSTIPATION Last administered on 06/29/18 05:59; Admin Dose 100 MG; Start 06/09/18 at 00:30 Bisacodyl (Dulcolax) 5 mg DAILY PRN PO CONSTIPATION Last administered on 06/29/18 05:58; Admin Dose 5 MG; Start 06/09/18 at 00:30 Pantoprazole (Protonix Tab) 40 mg DAILY@06 PO Last administered on 07/10/18 06:55; Admin Dose 40 MG; Start 06/09/18 at 06:00 Diagnostic Test (Pha) (Accu-Chek) 1 ea 02 XX Last administered on 07/05/18 01:50; Admin Dose 1 EA; Start 06/10/18 at 02:00 Insulin Aspart (Novolog Insulin Pen) NOVOLOG *MILD* ALGORITHM WITH MEALS BEDTIME SC Last administered on 07/10/18at 08:23; Admin Dose 1 UNIT; Start at 18:00 Miscellaneous Information 1 ea NOTE XX ; Start 06/09/18 at 14:30 Glucose (Glutose) 15 gm Q15M PRN PO DECREASED GLUCOSE; Start 06/09/18 at 14:30 Glucose (Glutose) 22.5 gm Q15M PRN PO DECREASED GLUCOSE; Start 06/09/18 at 14:30 Dextrose (D50w Syringe) 25 ml Q15M PRN IV DECREASED GLUCOSE Last administered on 06/29/18at 12:11; Admin Dose 25 ML; Start 06/09/18 at 14:30 Dextrose (D50w Syringe) 50 ml Q15M PRN IV DECREASED GLUCOSE; Start 06/09/18 at 14:30 Glucagon (Glucagen) 1 mg Q15M PRN IM DECREASED GLUCOSE; Start 06/09/18 at 14:30 Glucose (Glutose) 15 gm Q15M PRN BUCCAL DECREASED GLUCOSE; Start 06/09/18 at 14:30 Ferrous Sulfate (Ferrous Sulfate (Ec)) 325 mg DAILY PO Last administered on 07/10/18at 08:23; Admin Dose 325 MG; Start 06/13/18 at 10:30; Stop 08/12/18 at 10:29 Levalbuterol (Xopenex Neb) 1.25 mg Q6H RESP THERAPY PRN HHN sob/wheezing Last administered on 07/07/18at 23:32; Admin Dose 1.25 MG; Start 06/14/18 at 09:00 Guaifenesin/ Dextromethorphan (Mucinex Dm) 1 tab BID PO Last administered on 07/10/18at 08:29; Admin Dose 1 TAB; Start 06/14/18 at 09:30 Metformin HCl (Glucophage) 1,000 mg BID WITH MEALS PO Last administered on 07/10/18at 08:23; Admin Dose 1,000 MG; Start 06/16/18 at 18:00 Ascorbic Acid (Vitamin C) 500 mg DAILY PO Last administered on 07/10/18at 08:23; Admin Dose 500 MG; Start 06/17/18 at 09:00; Stop 08/16/18 at 08:59 Guaifenesin/ Codeine Phosphate (Robitussin Ac Liquid Cup) 5 ml Q4H PRN PO cough Last administered on 06/18/18 20:25; Admin Dose 5 ML; Start 06/18/18 at 12:00 Rifampin (Rifampin) 600 mg DAILY PO Last administered on 07/10/18 08:23; Admin Dose 600 MG; Start 06/20/18 at 14:30 Glimepiride (Amaryl) 4 mg QHS PO Last administered on 07/09/18 20:42; Admin Dose 4 MG; Start 06/25/18 at 21:00 Glimepiride (Amaryl) 2 mg AC BREAKFAST PO Last administered on 07/10/18 08:22; Admin Dose 2 MG; Start 06/26/18 at 07:00 Vancomycin HCl (Vanco Iv Per Pharmacy) VANCOMYCIN PER PHARMACY PER PROTOCOL XX ; Start 06/28/18 at 16:00 IV Flush (NS 10 ml) 10 ml PRN PRN IV FLUSH LINE; Start 06/28/18 at 18:30 Magnesium Citrate (Citroma) 300 ml DAILY PRN PO constipation Last administered on 07/04/18 21:01; Admin Dose 300 ML; Start 06/29/18 at 15:00 Zolpidem Tartrate (Ambien) 10 mg HS PRN PO insomnia Last administered on 06/29/18 21:55; Admin Dose 10 MG; Start 06/29/18 at 17:00 Multi-Ingredient Ointment (Eucerin Cream) 1 applic BID TOP Last administered on 07/10/18 08:24; Admin Dose 1 APPLIC; Start 07/01/18 at 21:30 Insulin Human NPH (Humulin N) 12 unit DAILY@20 SC Last administered on 07/09/18 20:42; Admin Dose 12 UNIT; Start 07/02/18 at 20:00 Alteplase, Recombinant (Cathflo (Activase)) 2 mg MAY REPEAT X1 PRN CATHETER IF CATHETER REMAINS OCCULUDED; Start 07/05/18 at 18:00 Vancomycin HCl 250 ml @ 125 mls/hr Q8H IVPB Last administered on 07/10/18 12:14; Admin Dose 125 MLS/HR; Start 07/07/18 at 20:00 IV Flush (NS 10 ml) 10 ml PRN PRN IV FLUSH LINE; Start 4/19/19 at 19:00 Miscellaneous Information (*Order Clarification Bulletin) MEDICATION REQUIRES CLARIFICATI... Q8H XX ; Start 07/09/18 at 18:00; Stop 07/11/18 at 17:59 JOSE GOVEA NP Jul 10, 2018 14:50
[2018-07-10] MEDS: MAGNESIUM CITRATE 300 ML BTL PO PRN (15:32)
--- NOTE | 2018-07-10 16:34 | CONS ---
Consult Date/Type/Reason Admit Date/Time Jun 08, 2018 at 23:53 Initial Consult Date 06/26/18 Type of Consultation: cv Requesting Provider: HAYDEE RAYO Date/Time of Note DATE: 07/10/18 TIME: 16:34 Subjective Cardiology follow-up progress Subjective: Discussed with the staff . pt is off tele now no report of chest pain breathing is fine now and minimal cough no diarrhea Objective: General: no acute distress HEENT: NC/AT. pupils are equal. round. NECK: NO JVD. no stridor. CV: RRR. systolic murmur; no gallop or rubs. PULM: no wheezing . GI: SOFT, NT, ND, no rebound or guarding Extremity: No significant LE edema. no clubbing. neuro: awake and alert Psych: calm and pleasant rectal: deferred Derm: Multiple tattoos Repeat echocardiogram on 06/26/2018 shows: Normal left ventricular systolic function. Normal left ventricular cavity size. Left ventricular wall thickness upper limits of normal. Ejection fraction is visually estimated at 60 %. Tissue Doppler/Mitral Doppler indices are consistent with impaired relaxation (Stage I diastolic dysfunction). Normal right ventricular size. Normal right ventricular systolic function. The left atrium is normal in size. The right atrium is normal in size. No significant valvular stenosis or regurgitation seen. Normal pericardium with no significant pericardial effusion. BITA 06/28/18 Normal LV size and systolic function with trace MR and TR Echo density/thickening of the tricuspid valve is noted. Vegetation cannot be ruled out Objective Vitals Vital Signs Date Temp Pulse Resp B/P (MAP) Pulse Ox O2 O2 Flow FiO2 Time Delivery Rate 07/10/18 98.0 104 18 109/75 97 14:37 (86) 07/09/18 Room Air 15:08 07/07/18 21 23:34 Intake and Output 07/09/18 07/09/18 07/10/18 1515:00 23:00 07:00 IntakeIntake Total 1420 ml 710 ml 490 ml BalanceBalance 1420 ml 710 ml 490 ml Results/Medications Result Diagram: 07/10/18 0745 07/10/18 0746 Results 24 hrs Laboratory Tests Test 07/09/18 17:16 07/09/18 20:40 07/10/18 07:44 07/10/18 07:45 Bedside Glucose 258 H 169 Serum HCG, NEGATIVE Qualitative White Blood Count 7.8 Red Blood Count 4.09 L Hemoglobin 11.9 L Hematocrit 37.4 Mean Corpuscular 91.4 Volume Mean Corpuscular 29.1 Hemoglobin Mean Corpuscular 31.8 L Hemoglobin Concent Red Cell 17.9 H Distribution Width Platelet Count 250 Mean Platelet Volume 9.6 Immature 0.500 H Granulocytes % Neutrophils % 57.6 Lymphocytes % 31.6 Monocytes % 4.9 Eosinophils % 4.5 Basophils % 0.9 Nucleated Red Blood 0.0 Cells % Immature 0.040 H Granulocytes # Neutrophils # 4.5 Lymphocytes # 2.5 Monocytes # 0.4 Eosinophils # 0.4 Basophils # 0.1 Nucleated Red Blood 0.0 Cells # Test 07/10/18 07:46 07/10/18 07:57 07/10/18 12:10 Sodium Level 137 Potassium Level 4.3 Chloride Level 104 Carbon Dioxide Level 22 Anion Gap 11 Blood Urea Nitrogen 13 Creatinine 0.33 L Glucose Level 171 Calcium Level 9.1 Phosphorus Level 4.7 Magnesium Level 1.6 L Albumin 3.8 Bedside Glucose 167 138 Medications Current Medications Ondansetron HCl (Zofran Inj) 4 mg Q6H PRN IV NAUSEA AND/OR VOMITING Last administered on 07/10/18 08:29; Admin Dose 4 MG; Start 06/09/18 at 00:30 Ipratropium [place] (Atrovent 0.02% (Neb)) 0.5 mg Q2H RESP THERAPY PRN NEB SHORTNESS OF BREATH Last administered on 07/07/18 23:32; Admin Dose 0.5 MG; Start 06/09/18 at 00:30 Acetaminophen (Tylenol Liquid) 650 mg Q6H PRN PO PAIN LEVEL 1-3 OR FEVER Last administered on 07/07/18 17:43; Admin Dose 650 MG; Start 06/09/18 at 00:30 Docusate Sodium (Colace) 100 mg Q12H PRN PO CONSTIPATION Last administered on 06/29/18 05:59; Admin Dose 100 MG; Start 06/09/18 at 00:30 Bisacodyl (Dulcolax) 5 mg DAILY PRN PO CONSTIPATION Last administered on 06/29/18 05:58; Admin Dose 5 MG; Start 06/09/18 at 00:30 Pantoprazole (Protonix Tab) 40 mg DAILY@06 PO Last administered on 4/22/19at 06:55; Admin Dose 40 MG; Start 06/09/18 at 06:00 Diagnostic Test (Pha) (Accu-Chek) 1 ea 02 XX Last administered on 07/05/18at 01:50; Admin Dose 1 EA; Start 06/10/18 at 02:00 Insulin Aspart (Novolog Insulin Pen) NOVOLOG *MILD* ALGORITHM WITH MEALS BEDTIME SC Last administered on 07/10/18 08:23; Admin Dose 1 UNIT; Start 06/09/18 at 18:00 Miscellaneous Information 1 ea NOTE XX ; Start 06/09/18 at 14:30 Glucose (Glutose) 15 gm Q15M PRN PO DECREASED GLUCOSE; Start 06/09/18 at 14:30 Glucose (Glutose) 22.5 gm Q15M PRN PO DECREASED GLUCOSE; Start 06/09/18 at 14:30 Dextrose (D50w Syringe) 25 ml Q15M PRN IV DECREASED GLUCOSE Last administered on 06/29/18at 12:11; Admin Dose 25 ML; Start 06/09/18 at 14:30 Dextrose (D50w Syringe) 50 ml Q15M PRN IV DECREASED GLUCOSE; Start 06/09/18 at 14:30 Glucagon (Glucagen) 1 mg Q15M PRN IM DECREASED GLUCOSE; Start 06/09/18 at 14:30 Glucose (Glutose) 15 gm Q15M PRN BUCCAL DECREASED GLUCOSE; Start 06/09/18 at 14:30 Ferrous Sulfate (Ferrous Sulfate (Ec)) 325 mg DAILY PO Last administered on 07/10/18 08:23; Admin Dose 325 MG; Start 06/13/18 at 10:30; Stop 08/12/18 at 10:29 Levalbuterol (Xopenex Neb) 1.25 mg Q6H RESP THERAPY PRN HHN sob/wheezing Last administered on 07/07/18at 23:32; Admin Dose 1.25 MG; Start 06/14/18 at 09:00 Guaifenesin/ Dextromethorphan (Mucinex Dm) 1 tab BID PO Last administered on 07/10/18 08:29; Admin Dose 1 TAB; Start 06/14/18 at 09:30 Metformin HCl (Glucophage) 1,000 mg BID WITH MEALS PO Last administered on 07/10/18 08:23; Admin Dose 1,000 MG; Start 06/16/18 at 18:00 Ascorbic Acid (Vitamin C) 500 mg DAILY PO Last administered on 07/10/18 08:23; Admin Dose 500 MG; Start 06/17/18 at 09:00; Stop 08/16/18 at 08:59 Guaifenesin/ Codeine Phosphate (Robitussin Ac Liquid Cup) 5 ml Q4H PRN PO cough Last administered on 06/18/18 20:25; Admin Dose 5 ML; Start 06/18/18 at 12:00 Rifampin (Rifampin) 600 mg DAILY PO Last administered on 07/10/18 08:23; Admin Dose 600 MG; Start 06/20/18 at 14:30 Glimepiride (Amaryl) 4 mg QHS PO Last administered on 07/09/18 20:42; Admin Dose 4 MG; Start 06/25/18 at 21:00 Glimepiride (Amaryl) 2 mg AC BREAKFAST PO Last administered on 07/10/18 08:22; Admin Dose 2 MG; Start 06/26/18 at 07:00 Vancomycin HCl (Vanco Iv Per Pharmacy) VANCOMYCIN PER PHARMACY PER PROTOCOL XX ; Start 06/28/18 at 16:00 IV Flush (NS 10 ml) 10 ml PRN PRN IV FLUSH LINE; Start 06/28/18 at 18:30 Magnesium Citrate (Citroma) 300 ml DAILY PRN PO constipation Last administered on 07/10/18 15:32; Admin Dose 300 ML; Start 06/29/18 at 15:00 Zolpidem Tartrate (Ambien) 10 mg HS PRN PO insomnia Last administered on 06/29/18at 21:55; Admin Dose 10 MG; Start 06/29/18 at 17:00 Multi-Ingredient Ointment (Eucerin Cream) 1 applic BID TOP Last administered on 07/10/18 08:24; Admin Dose 1 APPLIC; Start 07/01/18 at 21:30 Insulin Human NPH (Humulin N) 12 unit DAILY@20 SC Last administered on 20:42; Admin Dose 12 UNIT; Start 07/02/18 at 20:00 Alteplase, Recombinant (Cathflo (Activase)) 2 mg MAY REPEAT X1 PRN CATHETER IF CATHETER REMAINS OCCULUDED; Start 07/05/18 at 18:00 Vancomycin HCl 250 ml @ 125 mls/hr Q8H IVPB Last administered on 07/10/18at 12:14; Admin Dose 125 MLS/HR; Start 07/07/18 at 20:00 IV Flush (NS 10 ml) 10 ml PRN PRN IV FLUSH LINE; Start 07/07/18 at 19:00 Miscellaneous Information (*Order Clarification Bulletin) MEDICATION REQUIRES CLARIFICATI... Q8H XX ; Start 07/09/18 at 18:00; Stop 07/11/18 at 17:59 Assessment/Plan Hospital Course (Demo Recall) 1. MRSA bacteremia, with a possible vegetation on tricuspid valve on the transesophageal echocardiogram 2. Pneumonia 3. Status post DKA 4. Diabetes 5. Anemia 6. Homelessness Recommendations: Diabetic management as per internal medicine and endocrine documentation consultant. Antibiotic management as per infectious disease recommendations. replace lytes including Mg prn thank you for this referral. We will continue to follow along with you as needed ABDI JAY MD [facility] ABDI JAY MD Jul 10, 2018 16:34
[2018-07-10 19:46] VITALS: BP 110/80; PULSE 110; RESP 18
[2018-07-10] MEDS: GLIMEPIRIDE 4 MG TAB PO SCH (21:26)
[2018-07-10] MEDS: NPH, HUMAN INSULIN ISOPHANE 3ML VIAL SC SCH (21:28)
[2018-07-11 01:34] VITALS: BP 114/84; PULSE 119; RESP 18
[2018-07-11] MEDS: ACCU-CHEK XX SCH (02:00)
[2018-07-11 02:49] VITALS: BP 110/78; PULSE 120; RESP 18
[2018-07-11] MEDS ORDERED: SOD CHLORIDE 0.9% 500 ML IV ONE (03:30)
[2018-07-11] MEDS: VANCOMYCIN 1 GM 250 ML IVPB SCH ×3 (04:34→20:54)
[2018-07-11 07:57] VITALS: BP 100/72; PULSE 108; RESP 16
[2018-07-11] MEDS: INSULIN ASPART [NOVOLOG] 3 ML PEN SC SCH ×4 (08:00→21:00)
[2018-07-11] MEDS: FERROUS SULFATE (EC) 325 MG TAB PO SCH (08:16)
[2018-07-11] MEDS: metFORMIN 500 MG TAB PO SCH ×2 (08:17→17:33)
[2018-07-11] MEDS: ASCORBIC ACID 500 MG TAB PO SCH (08:17)
[2018-07-11] MEDS: GUAIFENESIN/DM (SR) TAB PO SCH ×2 (08:17→20:55)
[2018-07-11] MEDS: GLIMEPIRIDE 2 MG TAB PO SCH (08:17)
[2018-07-11] MEDS ORDERED: ACETAMINOPHEN 325 MG TAB PO PRN (09:30)
[2018-07-11] MEDS ORDERED: BISACODYL (EC) 5 MG TAB PO PRN (09:30)
[2018-07-11] MEDS: RIFAMPIN 300 MG CAP PO SCH (09:55)
[2018-07-11] MEDS: DOCUSATE SODIUM 100 MG CAP PO SCH (09:57)
[2018-07-11] MEDS: ONDANSETRON 4 MG INJ IV PRN (09:57)
[2018-07-11] MEDS: EUCERIN 113 GM CR TOP SCH ×2 (09:58→20:59)
--- NOTE | 2018-07-11 11:00 | PN ---
Date/Time of Note Date/Time of Note DATE: 07/11/18 TIME: 11:00 Objective Vitals Vital Signs Date Temp Pulse Resp B/P (MAP) Pulse Ox O2 O2 Flow FiO2 Time Delivery Rate 07/11/18 98.5 108 16 100/72 97 07:57 (81) 07/09/18 Room Air 15:08 07/07/18 21 23:34 Intake and Output 07/10/18 07/10/18 07/11/18 1414:59 22:59 06:59 IntakeIntake Total 970 ml 240 ml OutputOutput Total 500 ml BalanceBalance 970 ml 240 ml -500 ml Results Result Diagram: 07/11/18 0805 07/11/18 0805 Medications Medications Current Medications Diagnostic Test (Pha) (Accu-Chek) 1 ea 02 XX Last administered on 07/05/18at 01:50; Admin Dose 1 EA; Start 06/10/18 at 02:00 Insulin Aspart (Novolog Insulin Pen) NOVOLOG *MILD* ALGORITHM WITH MEALS BEDTIME SC Last administered on 07/10/18at 21:29; Admin Dose 1 UNIT; Start 06/09/18 at 18:00 Miscellaneous Information 1 ea NOTE XX ; Start 06/09/18 at 14:30 Glucose (Glutose) 15 gm Q15M PRN PO DECREASED GLUCOSE; Start 06/09/18 at 14:30 Glucose (Glutose) 22.5 gm Q15M PRN PO DECREASED GLUCOSE; Start 06/09/18 at 14:30 Dextrose (D50w Syringe) 25 ml Q15M PRN IV DECREASED GLUCOSE Last administered on 06/29/18at 12:11; Admin Dose 25 ML; Start 06/09/18 at 14:30 Dextrose (D50w Syringe) 50 ml Q15M PRN IV DECREASED GLUCOSE; Start 06/09/18 at 14:30 Glucagon (Glucagen) 1 mg Q15M PRN IM DECREASED GLUCOSE; Start 06/09/18 at 14:30 Glucose (Glutose) 15 gm Q15M PRN BUCCAL DECREASED GLUCOSE; Start 06/09/18 at 14:30 Ferrous Sulfate (Ferrous Sulfate (Ec)) 325 mg DAILY PO Last administered on 07/11/18at 08:16; Admin Dose 325 MG; Start 06/13/18 at 10:30; Stop 08/12/18 at 10:29 Levalbuterol (Xopenex Neb) 1.25 mg Q6H RESP THERAPY PRN HHN sob/wheezing Last administered on 07/07/18 23:32; Admin Dose 1.25 MG; Start 06/14/18 at 09:00 Guaifenesin/ Dextromethorphan (Mucinex Dm) 1 tab BID PO Last administered on 07/11/18 08:17; Admin Dose 1 TAB; Start 06/14/18 at 09:30 Metformin HCl (Glucophage) 1,000 mg BID WITH MEALS PO Last administered on 07/11/18 08:17; Admin Dose 1,000 MG; Start 06/16/18 at 18:00 Ascorbic Acid (Vitamin C) 500 mg DAILY PO Last administered on 07/11/18 08:17; Admin Dose 500 MG; Start 06/17/18 at 09:00; Stop 08/16/18 at 08:59 Guaifenesin/ Codeine Phosphate (Robitussin Ac Liquid Cup) 5 ml Q4H PRN PO cough Last administered on 06/18/18 20:25; Admin Dose 5 ML; Start 06/18/18 at 12:00 Rifampin (Rifampin) 600 mg DAILY PO Last administered on 07/11/18 09:55; Admin Dose 600 MG; Start 06/20/18 at 14:30 Glimepiride (Amaryl) 4 mg QHS PO Last administered on 07/10/18 21:26; Admin Dose 4 MG; Start 06/25/18 at 21:00 Glimepiride (Amaryl) 2 mg AC BREAKFAST PO Last administered on 07/11/18 08:17; Admin Dose 2 MG; Start 06/26/18 at 07:00 Vancomycin HCl (Vanco Iv Per Pharmacy) VANCOMYCIN PER PHARMACY PER PROTOCOL XX ; Start 06/28/18 at 16:00 IV Flush (NS 10 ml) 10 ml PRN PRN IV FLUSH LINE; Start 06/28/18 at 18:30 Magnesium Citrate (Citroma) 300 ml DAILY PRN PO constipation Last administered on 07/10/18 15:32; Admin Dose 300 ML; Start 06/29/18 at 15:00 Zolpidem Tartrate (Ambien) 10 mg HS PRN PO insomnia Last administered on 06/29/18 21:55; Admin Dose 10 MG; Start 06/29/18 at 17:00 Multi-Ingredient Ointment (Eucerin Cream) 1 applic BID TOP Last administered on 07/11/18at 09:58; Admin Dose 1 APPLIC; Start 07/01/18 at 21:30 Insulin Human NPH (Humulin N) 12 unit DAILY@20 SC Last administered on 07/10/18at 21:28; Admin Dose 12 UNIT; Start 07/02/18 at 20:00 Alteplase, Recombinant (Cathflo (Activase)) 2 mg MAY REPEAT X1 PRN CATHETER IF CATHETER REMAINS OCCULUDED; Start 07/05/18 at 18:00 Vancomycin HCl 250 ml @ 125 mls/hr Q8H IVPB Last administered on 07/11/18at 04:34; Admin Dose 125 MLS/HR; Start 07/07/18 at 20:00 IV Flush (NS 10 ml) 10 ml PRN PRN IV FLUSH LINE; Start 07/07/18 at 19:00 Miscellaneous Information (*Order Clarification Bulletin) MEDICATION REQUIRES CLARIFICATI... Q8H XX ; Start 07/09/18 at 18:00; Stop 07/11/18 at 17:59 Docusate Sodium (Colace) 100 mg DAILY PO Last administered on 07/11/18at 09:57; Admin Dose 100 MG; Start 07/11/18 at 09:30 Ondansetron HCl (Zofran Inj) 4 mg Q6H PRN IV NAUSEA AND/OR VOMITING Last a dministered on 07/11/18at 09:57; Admin Dose 4 MG; Start 07/11/18 at 09:30 Pantoprazole (Protonix Tab) 40 mg DAILY@06 PO ; Start 07/12/18 at 06:00 Bisacodyl (Dulcolax) 10 mg DAILY PRN PO CONSTIPATION; Start 07/11/18 at 09:30 Acetaminophen (Tylenol Tab) 650 mg Q6H PRN PO MILD PAIN(1-3)OR ELEVATED TEMP; Start 07/11/18 at 09:30 VTE Prophylaxis Risk score (from Ns)>0 risk: 2 SCD applied (from Ns): No SCD contraindication: low risk/ambulating Lines/Catheters IV Catheter Type: Garcia in Place: No Assessment/Plan Hospital Course Subjective doing okay, no acute complaints Objective Physical exam General: Patient is laying in bed and answers questions appropriately Mentation: Patient is alert and oriented 4, Head: Normocephalic atraumatic Eyes: EOMI, pupils reactive to light Neck: Supple, nontender, midline Respiratory: Coarse to auscultation bilaterally Cardiovascular: regular rate, no obvious murmurs Gastrointestinal: non-tender to palpation, bowel sounds heard. Neurological: Moves all extremities spontaneously Skin: No new skin lesions Assessment/Plan 1. 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 BITA performed with thickening/densities on tricuspid valve. Unable to rule out vegetation. - ID on board and appreciate recommendations. Will treat for endocarditis in setting of MRSA bacteremia and hx drug use 2. MRSA bacteremia- resolved - Repeat blood culture negative. Remains afebrile with nl WBC. - ID on board and appreciate recommendations. 3. Poorly controlled diabetes- improved - A1c noted - sugars remain controlled - Endocrinology consultation appreciated. Continue on current insulin and glimepiride. 4. Extensive bilateral multilobar pneumonia - Patient found with MRSA in sputum and CT scan showing cavitating lesions but improvement in bilateral infiltrate - Pulm on board and continue current treatment. Cocci studies. After review of recent CT scan concern for septic emboli. BITA performed - Repeat CT scan performed this am showing "Multifocal bilateral areas of pneumonia are again present and have diminished in overall size however there is interval development of multiple foci of lucencies within the areas of consol idation suggestive for bronchiectasis or developing small cavitary lesions." - ID recommendations appreciated 5. Homelessness - SW on board 6. History of meth abuse - Patient states last use was 2 weeks prior to admission. Counseled on cessation. 7. Tobacco use - Cessation advised. 8. Iron Deficient anemia. - Continue oral iron. - H&H stable. 9. Mild asthma. - Currently stable Constipation -Encourage use of laxatives as needed 10. Disposition - Medically stable for discharge once accepted to [facility] HAYDEE RAYO Jul 11, 2018 11:00
--- NOTE | 2018-07-11 12:22 | CONS ---
Assessment/Plan Assessment/Plan Hospital Course (Demo Recall) No events, alert, nad, no fevers BUN 13 creatinine 0.38 WBC 7.9 no shift no bands AFB smears negative 3 sets, cocci neg Microbiology: Blood culture on June 08 grew MRSA, repeat blood cultures negative, sputum culture on June 16 grew Talia albicans and MRSA. Serology for HIV negative Antimicrobials: Rifampin Vanco Physical examination: Well-developed middle-aged woman who is alert in no distress. Head atraumatic normocephalic sclera nonicteric. Neck is supple chest rise symmetrical breath sounds diminished bases. Heart S1-S2. Abdomen soft bowel sounds present. Extremities without cyanosis. Assessment: 1. S/p sepsis 2. 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 Necrotizing MRSA pneumonia with areas of cavitation per CT ?septic emboli 4. Homelessness 5. Poorly controlled diabetes 6. Meth amphetamine abuse Plan: Remains stable, pending discharge arrangements on IV Vanco last dose August 05 Consultation Date/Type/Reason Admit Date/Time Jun 08, 2018 at 23:53 Initial Consult Date Type of Consult id Requesting Provider: HAYDEE RAYO Date/Time of Note DATE: 07/11/18 TIME: 12:21 Exam/Review of Systems Exam Vitals Vital Signs Date Temp Pulse Resp B/P (MAP) Pulse Ox O2 O2 Flow FiO2 Time Delivery Rate 07/11/18 98.5 108 16 100/72 97 07:57 (81) 07/09/18 Room Air 15:08 07/07/18 21 23:34 Intake and Output 07/10/18 07/10/18 07/11/18 1515:00 23:00 07:00 IntakeIntake Total 970 ml 240 ml OutputOutput Total 500 ml BalanceBalance 970 ml 240 ml -500 ml Results Result Diagram: 07/11/18 0805 07/11/18 0805 Results 24hrs Laboratory Tests Test 07/10/18 15:57 07/10/18 17:34 07/10/18 21:24 07/11/18 02:45 Urine Test NEGATIVE Bedside Glucose 207 192 245 H Test 07/11/18 08:04 07/11/18 08:05 Bedside Glucose 126 White Blood Count 7.9 Red Blood Count 3.96 L Hemoglobin 11.6 L Hematocrit 36.5 L Mean Corpuscular 92.2 Volume Mean Corpuscular 29.3 Hemoglobin Mean Corpuscular 31.8 L Hemoglobin Concent Red Cell 18.0 H Distribution Width Platelet Count 256 Mean Platelet Volume 9.9 Immature 0.500 H Granulocytes % Neutrophils % 56.5 Lymphocytes % 31.3 Monocytes % 6.2 Eosinophils % 4.6 Basophils % 0.9 Nucleated Red Blood 0.0 Cells % Immature 0.040 H Granulocytes # Neutrophils # 4.5 Lymphocytes # 2.5 Monocytes # 0.5 Eosinophils # 0.4 Basophils # 0.1 Nucleated Red Blood 0.0 Cells # Sodium Level 140 Potassium Level 4.2 Chloride Level 108 Carbon Dioxide Level 26 Anion Gap 6 Blood Urea Nitrogen 13 Creatinine 0.38 L Est Glomerular > 60 Filtrat Rate mL/min Glucose Level 136 Calcium Level 9.2 Phosphorus Level 4.5 Magnesium Level 2.0 Medications Medication Current Medications Diagnostic Test (Pha) (Accu-Chek) 1 ea 02 XX Last administered on 07/05/18at 01:50; Admin Dose 1 EA; Start 06/10/18 at 02:00 Insulin Aspart (Novolog Insulin Pen) NOVOLOG *MILD* ALGORITHM WITH MEALS BEDTIME SC Last administered on 07/10/18at 21:29; Admin Dose 1 UNIT; Start 06/09/18 at 18:00 Miscellaneous Information 1 ea NOTE XX ; Start 06/09/18 at 14:30 Glucose (Glutose) 15 gm Q15M PRN PO DECREASED GLUCOSE; Start 06/09/18 at 14:30 Glucose (Glutose) 22.5 gm Q15M PRN PO DECREASED GLUCOSE; Start 06/09/18 at 14:30 Dextrose (D50w Syringe) 25 ml Q15M PRN IV DECREASED GLUCOSE Last administered on 06/29/18at 12:11; Admin Dose 25 ML; Start 06/09/18 at 14:30 Dextrose (D50w Syringe) 50 ml Q15M PRN IV DECREASED GLUCOSE; Start 06/09/18 at 14:30 Glucagon (Glucagen) 1 mg Q15M PRN IM DECREASED GLUCOSE; Start 06/09/18 at 14:30 Glucose (Glutose) 15 gm Q15M PRN BUCCAL DECREASED GLUCOSE; Start 06/09/18 at 14:30 Ferrous Sulfate (Ferrous Sulfate (Ec)) 325 mg DAILY PO Last administered on 07/11/18at 08:16; Admin Dose 325 MG; Start 06/13/18 at 10:30; Stop 08/12/18 at 10:29 Levalbuterol (Xopenex Neb) 1.25 mg Q6H RESP THERAPY PRN HHN sob/wheezing Last administered on 07/07/18at 23:32; Admin Dose 1.25 MG; Start 06/14/18 at 09:00 Guaifenesin/ Dextromethorphan (Mucinex Dm) 1 tab BID PO Last administered on 07/11/18 08:17; Admin Dose 1 TAB; Start 06/14/18 at 09:30 Metformin HCl (Glucophage) 1,000 mg BID WITH MEALS PO Last administered on 07/11/18 08:17; Admin Dose 1,000 MG; Start 06/16/18 at 18:00 Ascorbic Acid (Vitamin C) 500 mg DAILY PO Last administered on 07/11/18 08:17; Admin Dose 500 MG; Start 06/17/18 at 09:00; Stop 08/16/18 at 08:59 Guaifenesin/ Codeine Phosphate (Robitussin Ac Liquid Cup) 5 ml Q4H PRN PO cough Last administered on 06/18/18 20:25; Admin Dose 5 ML; Start 06/18/18 at 12:00 Rifampin (Rifampin) 600 mg DAILY PO Last administered on 07/11/18 09:55; Admin Dose 600 MG; Start 06/20/18 at 14:30 Glimepiride (Amaryl) 4 mg QHS PO Last administered on 07/10/18at 21:26; Admin Dose 4 MG; Start 06/25/18 at 21:00 Glimepiride (Amaryl) 2 mg AC BREAKFAST PO Last administered on 07/11/18 08:17; Admin Dose 2 MG; Start 06/26/18 at 07:00 Vancomycin HCl (Vanco Iv Per Pharmacy) VANCOMYCIN PER PHARMACY PER PROTOCOL XX ; Start 06/28/18 at 16:00 IV Flush (NS 10 ml) 10 ml PRN PRN IV FLUSH LINE; Start 06/28/18 at 18:30 Magnesium Citrate (Citroma) 300 ml DAILY PRN PO constipation Last administered on 07/10/18at 15:32; Admin Dose 300 ML; Start 06/29/18 at 15:00 Zolpidem Tartrate (Ambien) 10 mg HS PRN PO insomnia Last administered on 06/29/18at 21:55; Admin Dose 10 MG; Start 06/29/18 at 17:00 Multi-Ingredient Ointment (Eucerin Cream) 1 applic BID TOP Last administered on 07/11/18at 09:58; Admin Dose 1 APPLIC; Start 07/01/18 at 21:30 Insulin Human NPH (Humulin N) 12 unit DAILY@20 SC Last administered on 07/10/18at 21:28; Admin Dose 12 UNIT; Start 07/02/18 at 20:00 Alteplase, Recombinant (Cathflo (Activase)) 2 mg MAY REPEAT X1 PRN CATHETER IF CATHETER REMAINS OCCULUDED; Start 07/05/18 at 18:00 Vancomycin HCl 250 ml @ 125 mls/hr Q8H IVPB Last administered on 07/11/18at 04:34; Admin Dose 125 MLS/HR; Start 07/07/18 at 20:00 IV Flush (NS 10 ml) 10 ml PRN PRN IV FLUSH LINE; Start 07/07/18 at 19:00 Miscellaneous Information (*Order Clarification Bulletin) MEDICATION REQUIRES CLARIFICATI... Q8H XX ; Start 07/09/18 at 18:00; Stop 07/11/18 at 17:59 Docusate Sodium (Colace) 100 mg DAILY PO Last administered on 07/11/18at 09:57; Admin Dose 100 MG; Start 07/11/18 at 09:30 Ondansetron HCl (Zofran Inj) 4 mg Q6H PRN IV NAUSEA AND/OR VOMITING Last administered on 07/11/18at 09:57; Admin Dose 4 MG; Start 07/11/18 at 09:30 Pantoprazole (Protonix Tab) 40 mg DAILY@06 PO ; Start 07/12/18 at 06:00 Bisacodyl (Dulcolax) 10 mg DAILY PRN PO CONSTIPATION; Start 07/11/18 at 09:30 Acetaminophen (Tylenol Tab) 650 mg Q6H PRN PO MILD PAIN(1-3)OR ELEVATED TEMP; Start 07/11/18 at 09:30 Miscellaneous Information (*Rx Drug Level Order Reminder*) 1 1100 ONCE XX ; Start 07/12/18 at 11:00; Stop 07/12/18 at 11:01 JOSE GOVEA [employer] Jul 11, 2018 12:22
[2018-07-11 13:55] VITALS: BP 121/83; PULSE 112; RESP 16
--- NOTE | 2018-07-11 17:05 | CONS ---
Consult Date/Type/Reason Admit Date/Time Jun 08, 2018 at 23:53 Initial Consult Date 06/26/18 Type of Consultation: cv Requesting Provider: HAYDEE RAYO Date/Time of Note DATE: 07/11/18 TIME: 17:04 Subjective Cardiology follow-up progress Subjective: Discussed with the staff . pt is off tele now no report of chest pain breathing is fine now Objective: General: no acute distress HEENT: NC/AT. pupils are equal. round. NECK: NO JVD. no stridor. CV: RRR. systolic murmur; no gallop or rubs. PULM: no wheezing . GI: SOFT, NT, ND, no rebound or guarding Extremity: No significant LE edema. no clubbing. neuro: awake and alert Psych: calm and pleasant rectal: deferred Derm: Multiple tattoos Repeat echocardiogram on 06/26/2018 shows: Normal left ventricular systolic function. Normal left ventricular cavity size. Left ventricular wall thickness upper limits of normal. Ejection fraction is visually estimated at 60 %. Tissue Doppler/Mitral Doppler indices are consistent with impaired relaxation (Stage I diastolic dysfunction). Normal right ventricular size. Normal right ventricular systolic function. The left atrium is normal in size. The right atrium is normal in size. No significant valvular stenosis or regurgitation seen. Normal pericardium with no significant pericardial effusion. BITA 06/28/18 Normal LV size and systolic function with trace MR and TR Echo density/thickening of the tricuspid valve is noted. Vegetation cannot be ruled out Objective Vitals Vital Signs Date Temp Pulse Resp B/P (MAP) Pulse Ox O2 O2 Flow FiO2 Time Delivery Rate 07/11/18 98.4 112 16 121/83 13:55 (96) 07/11/18 97 07:57 07/09/18 Room Air 15:08 07/07/18 21 23:34 Intake and Output 07/10/18 07/10/18 07/11/18 1414:59 22:59 06:59 IntakeIntake Total 970 ml 240 ml OutputOutput Total 500 ml BalanceBalance 970 ml 240 ml -500 ml Results/Medications Result Diagram: 07/11/18 0805 07/11/18 0805 Results 24 hrs Laboratory Tests Test 07/10/18 17:34 07/10/18 21:24 07/11/18 02:45 07/11/18 08:04 Bedside Glucose 207 192 245 H 126 Test 07/11/18 08:05 07/11/18 12:12 White Blood Count 7.9 Red Blood Count 3.96 L Hemoglobin 11.6 L Hematocrit 36.5 L Mean Corpuscular 92.2 Volume Mean Corpuscular 29.3 Hemoglobin Mean Corpuscular 31.8 L Hemoglobin Concent Red Cell 18.0 H Distribution Width Platelet Count 256 Mean Platelet Volume 9.9 Immature 0.500 H Granulocytes % Neutrophils % 56.5 Lymphocytes % 31.3 Monocytes % 6.2 Eosinophils % 4.6 Basophils % 0.9 Nucleated Red Blood 0.0 Cells % Immature 0.040 H Granulocytes # Neutrophils # 4.5 Lymphocytes # 2.5 Monocytes # 0.5 Eosinophils # 0.4 Basophils # 0.1 Nucleated Red Blood 0.0 Cells # Sodium Level 140 Potassium Level 4.2 Chloride Level 108 Carbon Dioxide Level 26 Anion Gap 6 Blood Urea Nitrogen 13 Creatinine 0.38 L Est Glomerular > 60 Filtrat Rate mL/min Glucose Level 136 Calcium Level 9.2 Phosphorus Level 4.5 Magnesium Level 2.0 Bedside Glucose 169 Medications Current Medications Diagnostic Test (Pha) (Accu-Chek) 1 ea 02 XX Last administered on 07/05/18at 01:50; Admin Dose 1 EA; Start 06/10/18 at 02:00 Insulin Aspart (Novolog Insulin Pen) NOVOLOG *MILD* ALGORITHM WITH MEALS BEDTIME SC Last administered on 07/11/18at 12:19; Admin Dose 1 UNIT; Start 06/09/18 at 18:00 Miscellaneous Information 1 ea NOTE XX ; Start 06/09/18 at 14:30 Glucose (Glutose) 15 gm Q15M PRN PO DECREASED GLUCOSE; Start 06/09/18 at 14:30 Glucose (Glutose) 22.5 gm Q15M PRN PO DECREASED GLUCOSE; Start 06/09/18 at 14: 30 Dextrose (D50w Syringe) 25 ml Q15M PRN IV DECREASED GLUCOSE Last administered on 06/29/18at 12:11; Admin Dose 25 ML; Start 06/09/18 at 14:30 Dextrose (D50w Syringe) 50 ml Q15M PRN IV DECREASED GLUCOSE; Start 06/09/18 at 14:30 Glucagon (Glucagen) 1 mg Q15M PRN IM DECREASED GLUCOSE; Start 06/09/18 at 14:30 Glucose (Glutose) 15 gm Q15M PRN BUCCAL DECREASED GLUCOSE; Start 06/09/18 at 14:30 Ferrous Sulfate (Ferrous Sulfate (Ec)) 325 mg DAILY PO Last administered on 07/11/18 08:16; Admin Dose 325 MG; Start 06/13/18 at 10:30; Stop 08/12/18 at 10:29 Levalbuterol (Xopenex Neb) 1.25 mg Q6H RESP THERAPY PRN HHN sob/wheezing Last administered on 07/07/18 23:32; Admin Dose 1.25 MG; Start 06/14/18 at 09:00 Guaifenesin/ Dextromethorphan (Mucinex Dm) 1 tab BID PO Last administered on 07/11/18 08:17; Admin Dose 1 TAB; Start 06/14/18 at 09:30 Metformin HCl (Glucophage) 1,000 mg BID WITH MEALS PO Last administered on 07/11/18 08:17; Admin Dose 1,000 MG; Start 06/16/18 at 18:00 Ascorbic Acid (Vitamin C) 500 mg DAILY PO Last administered on 07/11/18 08:17; Admin Dose 500 MG; Start 06/17/18 at 09:00; Stop 08/16/18 at 08:59 Guaifenesin/ Codeine Phosphate (Robitussin Ac Liquid Cup) 5 ml Q4H PRN PO cough Last administered on 06/18/18 20:25; Admin Dose 5 ML; Start 06/18/18 at 12:00 Rifampin (Rifampin) 600 mg DAILY PO Last administered on 07/11/18 09:55; Admin Dose 600 MG; Start 06/20/18 at 14:30 Glimepiride (Amaryl) 4 mg QHS PO Last administered on 07/10/18 21:26; Admin Dose 4 MG; Start 06/25/18 at 21:00 Glimepiride (Amaryl) 2 mg AC BREAKFAST PO Last administered on 07/11/18 08:17; Admin Dose 2 MG; Start 06/26/18 at 07:00 Vancomycin HCl (Vanco Iv Per Pharmacy) VANCOMYCIN PER PHARMACY PER PROTOCOL XX ; Start 06/28/18 at 16:00 IV Flush (NS 10 ml) 10 ml PRN PRN IV FLUSH LINE; Start 06/28/18 at 18:30 Magnesium Citrate (Citroma) 300 ml DAILY PRN PO constipation Last administered on 07/10/18 15:32; Admin Dose 300 ML; Start 06/29/18 at 15:00 Zolpidem Tartrate (Ambien) 10 mg HS PRN PO insomnia Last administered on 06/29/18 21:55; Admin Dose 10 MG; Start 06/29/18 at 17:00 Multi-Ingredient Ointment (Eucerin Cream) 1 applic BID TOP Last administered on 07/11/18 09:58; Admin Dose 1 APPLIC; Start 07/01/18 at 21:30 Insulin Human NPH (Humulin N) 12 unit DAILY@20 SC Last administered on 07/10/18 21:28; Admin Dose 12 UNIT; Start 07/02/18 at 20:00 Alteplase, Recombinant (Cathflo (Activase)) 2 mg MAY REPEAT X1 PRN CATHETER IF CATHETER REMAINS OCCULUDED; Start 07/05/18 at 18:00 Vancomycin HCl 250 ml @ 125 mls/hr Q8H IVPB Last administered on 07/11/18 12:17; Admin Dose 125 MLS/HR; Start 07/07/18 at 20:00 IV Flush (NS 10 ml) 10 ml PRN PRN IV FLUSH LINE; Start 07/07/18 at 19:00 Miscellaneous Information (*Order Clarification Bulletin) MEDICATION REQUIRES CLARIFICATI... Q8H XX ; Start 07/09/18 at 18:00; Stop 07/11/18 at 17:59 Docusate Sodium (Colace) 100 mg DAILY PO Last administered on 07/11/18 09:57; Admin Dose 100 MG; Start 07/11/18 at 09:30 Ondansetron HCl (Zofran Inj) 4 mg Q6H PRN IV NAUSEA AND/OR VOMITING Last administered on 07/11/18 09:57; Admin Dose 4 MG; Start 07/11/18 at 09:30 Pantoprazole (Protonix Tab) 40 mg DAILY@06 PO ; Start 07/12/18 at 06:00 Bisacodyl (Dulcolax) 10 mg DAILY PRN PO CONSTIPATION; Start 07/11/18 at 09:30 Acetaminophen (Tylenol Tab) 650 mg Q6H PRN PO MILD PAIN(1-3)OR ELEVATED TEMP; Start 07/11/18 at 09:30 Miscellaneous Information (*Rx Drug Level Order Reminder*) 1 1100 ONCE XX ; Start 07/12/18 at 11:00; Stop 07/12/18 at 11:01 Assessment/Plan Hospital Course (Demo Recall) 1. MRSA bacteremia, with a possible vegetation on tricuspid valve on the transesophageal echocardiogram 2. Pneumonia 3. Status post DKA 4. Diabetes 5. Anemia 6. Homelessness Recommendations: Diabetic management as per internal medicine and endocrine job service consultant. Antibiotic management as per infectious disease recommendations. replace lytes including Mg prn thank you for this referral. We will continue to follow along with you as needed ADBI JAY MD [facility] ABDI JAY MD Jul 11, 2018 17:05
[2018-07-11 19:47] VITALS: BP 119/81; PULSE 106; RESP 18
[2018-07-11] MEDS: GLIMEPIRIDE 4 MG TAB PO SCH (20:54)
[2018-07-11] MEDS: NPH, HUMAN INSULIN ISOPHANE 3ML VIAL SC SCH (20:57)
[2018-07-11] MEDS: ZOLPIDEM 5 MG TAB PO PRN (21:46)
[2018-07-12] MEDS: ACCU-CHEK XX SCH (02:00)
[2018-07-12 02:05] VITALS: BP 115/80; PULSE 110; RESP 17
[2018-07-12] MEDS: VANCOMYCIN 1 GM 250 ML IVPB SCH ×2 (04:16→12:38)
[2018-07-12] MEDS: PANTOPRAZOLE (EC) 40 MG TAB PO SCH (05:26)
[2018-07-12 08:00] VITALS: BP 118/81; PULSE 103; RESP 17
[2018-07-12] MEDS: INSULIN ASPART [NOVOLOG] 3 ML PEN SC SCH ×4 (08:00→21:00)
[2018-07-12] MEDS: metFORMIN 500 MG TAB PO SCH ×2 (08:23→17:32)
[2018-07-12] MEDS: DOCUSATE SODIUM 100 MG CAP PO SCH (08:23)
[2018-07-12] MEDS: ASCORBIC ACID 500 MG TAB PO SCH (08:24)
[2018-07-12] MEDS: RIFAMPIN 300 MG CAP PO SCH (08:24)
[2018-07-12] MEDS: GLIMEPIRIDE 2 MG TAB PO SCH (08:24)
[2018-07-12] MEDS: ONDANSETRON 4 MG INJ IV PRN (08:25)
[2018-07-12] MEDS: GUAIFENESIN/DM (SR) TAB PO SCH ×2 (08:25→21:06)
[2018-07-12] MEDS: FERROUS SULFATE (EC) 325 MG TAB PO SCH (08:25)
--- NOTE | 2018-07-12 08:30 | CONS ---
Consult Date/Type/Reason Admit Date/Time Jun 08, 2018 at 23:53 Initial Consult Date 06/26/18 Type of Consultation: cv Requesting Provider: HAYDEE RAYO Date/Time of Note DATE: 07/12/18 TIME: 08:29 Subjective Cardiology follow-up progress Subjective: Discussed with the staff . no report of chest pain Patient complains of cough and shortness of breath and stated her "asthma" is worse Objective: General: no acute distress HEENT: NC/AT. pupils are equal. round. NECK: NO JVD. no stridor. CV: RRR. systolic murmur; no gallop or rubs. PULM: no wheezing . GI: SOFT, NT, ND, no rebound or guarding Extremity: No significant LE edema. no clubbing. neuro: awake and alert Psych: calm and pleasant rectal: deferred Derm: Multiple tattoos Repeat echocardiogram on 06/26/2018 shows: Normal left ventricular systolic function. Normal left ventricular cavity size. Left ventricular wall thickness upper limits of normal. Ejection fraction is visually estimated at 60 %. Tissue Doppler/Mitral Doppler indices are consistent with impaired relaxation (Stage I diastolic dysfunction). Normal right ventricular size. Normal right ventricular systolic function. The left atrium is normal in size. The right atrium is normal in size. No significant valvular stenosis or regurgitation seen. Normal pericardium with no significant pericardial effusion. BITA 06/28/18 Normal LV size and systolic function with trace MR and TR Echo density/thickening of the tricuspid valve is noted. Vegetation cannot be ruled out Objective Vitals Vital Signs Date Temp Pulse Resp B/P (MAP) Pulse Ox O2 O2 Flow FiO2 Time Delivery Rate 07/12/18 98.7 110 17 115/80 98 02:05 (92) 07/09/18 Room Air 15:08 Intake and Output 07/11/18 07/11/18 07/12/18 1515:00 23:00 07:00 IntakeIntake Total 250 ml 1550 ml 250 ml BalanceBalance 250 ml 1550 ml 250 ml Results/Medications Result Diagram: 07/11/18 0807/11/18 08 Results 24 hrs Laboratory Tests Test 07/11/18 12:12 07/11/18 17:26 07/11/18 20:52 07/12/18 07:57 Bedside Glucose 169 128 154 115 Medications Current Medications Diagnostic Test (Pha) (Accu-Chek) 1 ea 02 XX Last administered on 07/05/18at 0 1:50; Admin Dose 1 EA; Start 06/10/18 at 02:00 Insulin Aspart (Novolog Insulin Pen) NOVOLOG *MILD* ALGORITHM WITH MEALS BEDTIME SC Last administered on 07/11/18at 12:19; Admin Dose 1 UNIT; Start 05/20 05/09 at 18:00 Miscellaneous Information 1 ea NOTE XX ; Start 06/09/18 at 14:30 Glucose (Glutose) 15 gm Q15M PRN PO DECREASED GLUCOSE; Start 06/09/18 at 14:30 Glucose (Glutose) 22.5 gm Q15M PRN PO DECREASED GLUCOSE; Start 06/09/18 at 14:30 Dextrose (D50w Syringe) 25 ml Q15M PRN IV DECREASED GLUCOSE Last administered on 06/29/18at 12:11; Admin Dose 25 ML; Start 06/09/18 at 14:30 Dextrose (D50w Syringe) 50 ml Q15M PRN IV DECREASED GLUCOSE; Start 06/09/18 at 14:30 Glucagon (Glucagen) 1 mg Q15M PRN IM DECREASED GLUCOSE; Start 06/09/18 at 14:30 Glucose (Glutose) 15 gm Q15M PRN BUCCAL DECREASED GLUCOSE; Start 06/09/18 at 14:30 Ferrous Sulfate (Ferrous Sulfate (Ec)) 325 mg DAILY PO Last administered on 07/11/18at 08:16; Admin Dose 325 MG; Start 06/13/18 at 10:30; Stop 08/12/18 at 10:29 Levalbuterol (Xopenex Neb) 1.25 mg Q6H RESP THERAPY PRN HHN sob/wheezing Last administered on 07/07/18at 23:32; Admin Dose 1.25 MG; Start 06/14/18 at 09:00 Guaifenesin/ Dextromethorphan (Mucinex Dm) 1 tab BID PO Last administered on 07/11/18at 20:55; Admin Dose 1 TAB; Start 06/14/18 at 09:30 Metformin HCl (Glucophage) 1,000 mg BID WITH MEALS PO Last administered on 07/11/18at 17:33; Admin Dose 1,000 MG; Start 06/16/18 at 18:00 Ascorbic Acid (Vitamin C) 500 mg DAILY PO Last administered on 07/11/18 08:17; Admin Dose 500 MG; Start 06/17/18 at 09:00; Stop 08/16/18 at 08:59 Guaifenesin/ Codeine Phosphate (Robitussin Ac Liquid Cup) 5 ml Q4H PRN PO cough Last administered on 06/18/18 20:25; Admin Dose 5 ML; Start 06/18/18 at 12:00 Rifampin (Rifampin) 600 mg DAILY PO Last administered on 07/11/18 09:55; Admin Dose 600 MG; Start 06/20/18 at 14:30 Glimepiride (Amaryl) 4 mg QHS PO Last administered on 07/11/18 20:54; Admin Dose 4 MG; Start 06/25/18 at 21:00 Glimepiride (Amaryl) 2 mg AC BREAKFAST PO Last administered on 07/11/18 08:17; Admin Dose 2 MG; Start 06/26/18 at 07:00 Vancomycin HCl (Vanco Iv Per Pharmacy) VANCOMYCIN PER PHARMACY PER PROTOCOL XX ; Start 06/28/18 at 16:00 IV Flush (NS 10 ml) 10 ml PRN PRN IV FLUSH LINE; Start 06/28/18 at 18:30 Magnesium Citrate (Citroma) 300 ml DAILY PRN PO constipation Last administered on 07/10/18 15:32; Admin Dose 300 ML; Start 06/29/18 at 15:00 Zolpidem Tartrate (Ambien) 10 mg HS PRN PO insomnia Last administered on 07/11/18 21:46; Admin Dose 10 MG; Start 06/29/18 at 17:00 Multi-Ingredient Ointment (Eucerin Cream) 1 applic BID TOP Last administered on 07/11/18 20:59; Admin Dose 1 APPLIC; Start 07/01/18 at 21:30 Insulin Human NPH (Humulin N) 12 unit DAILY@20 SC Last administered on 07/11/18 20:57; Admin Dose 12 UNIT; Start 07/02/18 at 20:00 Alteplase, Recombinant (Cathflo (Activase)) 2 mg MAY REPEAT X1 PRN CATHETER IF CATHETER REMAINS OCCULUDED Last administered on 07/11/18 23:23; Admin Dose 2 MG; Start 07/05/18 at 18:00 Vancomycin HCl 250 ml @ 125 mls/hr Q8H IVPB Last administered on 07/12/18 04:16; Admin Dose 125 MLS/HR; Start 07/07/18 at 20:00 IV Flush (NS 10 ml) 10 ml PRN PRN IV FLUSH LINE; Start 07/07/18 at 19:00 Docusate Sodium (Colace) 100 mg DAILY PO Last administered on 07/11/18 09:57; Admin Dose 100 MG; Start 07/11/18 at 09:30 Ondansetron HCl (Zofran Inj) 4 mg Q6H PRN IV NAUSEA AND/OR VOMITING Last administered on 07/11/18 09:57; Admin Dose 4 MG; Start 07/11/18 at 09:30 Pantoprazole (Protonix Tab) 40 mg DAILY@06 PO Last administered on 07/12/18 05:26; Admin Dose 40 MG; Start 07/12/18 at 06:00 Bisacodyl (Dulcolax) 10 mg DAILY PRN PO CONSTIPATION; Start 07/11/18 at 09:30 Acetaminophen (Tylenol Tab) 650 mg Q6H PRN PO MILD PAIN(1-3)OR ELEVATED TEMP; Start 07/11/18 at 09:30 Miscellaneous Information (*Rx Drug Level Order Reminder*) 1 1100 ONCE XX ; Start 07/12/18 at 11:00; Stop 07/12/18 at 11:01 Assessment/Plan Hospital Course (Demo Recall) 1. MRSA bacteremia, with a possible vegetation on tricuspid valve on the transesophageal echocardiogram 2. Pneumonia 3. Status post DKA 4. Diabetes 5. Anemia 6. Homelessness Recommendations: Diabetic management as per internal medicine and endocrine industrial rehabilitation consultant. Antibiotic management as per infectious disease recommendations. replace lytes including Mg prn Pulmonary care as per internal medicine thank you for this referral. We will continue to follow along with you as needed ABDI JAY MD [facility] ABDI JAY MD Jul 12, 2018 08:30
[2018-07-12] MEDS: EUCERIN 113 GM CR TOP SCH ×2 (08:34→21:24)
[2018-07-12] MEDS: LEVALBUTEROL (NEB) 1.25 MG/0.5 ML AMP HHN PRN (09:05)
--- NOTE | 2018-07-12 10:23 | PN ---
Date/Time of Note Date/Time of Note DATE: 07/12/18 TIME: 10:23 Objective Vitals Vital Signs Date Temp Pulse Resp B/P (MAP) Pulse Ox O2 O2 Flow FiO2 Time Delivery Rate 07/12/18 104 18 95 21 09:05 07/12/18 98.4 118/81 Room Air 08:00 (93) Intake and Output 07/11/18 07/11/18 07/12/18 1515:00 23:00 07:00 IntakeIntake Total 250 ml 1550 ml 250 ml BalanceBalance 250 ml 1550 ml 250 ml Results Result Diagram: 07/11/18 0805 07/11/18 0805 Medications Medications Current Medications Diagnostic Test (Pha) (Accu-Chek) 1 ea 02 XX Last administered on 07/05/18at 01:50; Admin Dose 1 EA; Start 06/10/18 at 02:00 Insulin Aspart (Novolog Insulin Pen) NOVOLOG *MILD* ALGORITHM WITH MEALS BEDTIME SC Last administered on 07/11/18at 12:19; Admin Dose 1 UNIT; Start 06/09/18 at 18:00 Miscellaneous Information 1 ea NOTE XX ; Start 06/09/18 at 14:30 Glucose (Glutose) 15 gm Q15M PRN PO DECREASED GLUCOSE; Start 06/09/18 at 14:30 Glucose (Glutose) 22.5 gm Q15M PRN PO DECREASED GLUCOSE; Start 06/09/18 at 14:30 Dextrose (D50w Syringe) 25 ml Q15M PRN IV DECREASED GLUCOSE Last administered on 06/29/18at 12:11; Admin Dose 25 ML; Start 06/09/18 at 14:30 Dextrose (D50w Syringe) 50 ml Q15M PRN IV DECREASED GLUCOSE; Start 06/09/18 at 14:30 Glucagon (Glucagen) 1 mg Q15M PRN IM DECREASED GLUCOSE; Start 06/09/18 at 14:30 Glucose (Glutose) 15 gm Q15M PRN BUCCAL DECREASED GLUCOSE; Start 06/09/18 at 14:30 Ferrous Sulfate (Ferrous Sulfate (Ec)) 325 mg DAILY PO Last administered on 07/12/18at 08:25; Admin Dose 325 MG; Start 06/13/18 at 10:30; Stop 08/12/18 at 10:29 Levalbuterol (Xopenex Neb) 1.25 mg Q6H RESP THERAPY PRN HHN sob/wheezing Last administered on 07/12/18 09:05; Admin Dose 1.25 MG; Start 06/14/18 at 09:00 Guaifenesin/ Dextromethorphan (Mucinex Dm) 1 tab BID PO Last administered on 07/12/18 08:25; Admin Dose 1 TAB; Start 06/14/18 at 09:30 Metformin HCl (Glucophage) 1,000 mg BID WITH MEALS PO Last administered on 07/12/18 08:23; Admin Dose 1,000 MG; Start 06/16/18 at 18:00 Ascorbic Acid (Vitamin C) 500 mg DAILY PO Last administered on 07/12/18 08:24; Admin Dose 500 MG; Start 06/17/18 at 09:00; Stop 08/16/18 at 08:59 Guaifenesin/ Codeine Phosphate (Robitussin Ac Liquid Cup) 5 ml Q4H PRN PO cough Last administered on 06/18/18 20:25; Admin Dose 5 ML; Start 06/18/18 at 12:00 Rifampin (Rifampin) 600 mg DAILY PO Last administered on 07/12/18 08:24; Admin Dose 600 MG; Start 06/20/18 at 14:30 Glimepiride (Amaryl) 4 mg QHS PO Last administered on 07/11/18 20:54; Admin Dose 4 MG; Start 06/25/18 at 21:00 Glimepiride (Amaryl) 2 mg AC BREAKFAST PO Last administered on 07/12/18 08:24; Admin Dose 2 MG; Start 06/26/18 at 07:00 Vancomycin HCl (Vanco Iv Per Pharmacy) VANCOMYCIN PER PHARMACY PER PROTOCOL XX ; Start 06/28/18 at 16:00 IV Flush (NS 10 ml) 10 ml PRN PRN IV FLUSH LINE; Start 06/28/18 at 18:30 Magnesium Citrate (Citroma) 300 ml DAILY PRN PO constipation Last administered on 07/10/18 15:32; Admin Dose 300 ML; Start 06/29/18 at 15:00 Zolpidem Tartrate (Ambien) 10 mg HS PRN PO insomnia Last administered on 07/11/18 21:46; Admin Dose 10 MG; Start 06/29/18 at 17:00 Multi-Ingredient Ointment (Eucerin Cream) 1 applic BID TOP Last administered on 07/12/18 08:34; Admin Dose 1 APPLIC; Start 07/01/18 at 21:30 Insulin Human NPH (Humulin N) 12 unit DAILY@20 SC Last administered on 07/11/18 20:57; Admin Dose 12 UNIT; Start 07/02/18 at 20:00 Alteplase, Recombinant (Cathflo (Activase)) 2 mg MAY REPEAT X1 PRN CATHETER IF CATHETER REMAINS OCCULUDED Last administered on 07/11/18 23:23; Admin Dose 2 MG; Start 07/05/18 at 18:00 Vancomycin HCl 250 ml @ 125 mls/hr Q8H IVPB Last administered on 07/12/18 04:16; Admin Dose 125 MLS/HR; Start 07/07/18 at 20:00 IV Flush (NS 10 ml) 10 ml PRN PRN IV FLUSH LINE; Start 07/07/18 at 19:00 Docusate Sodium (Colace) 100 mg DAILY PO Last administered on 07/12/18at 08:23; Admin Dose 100 MG; Start 07/11/18 at 09:30 Ondansetron HCl (Zofran Inj) 4 mg Q6H PRN IV NAUSEA AND/OR VOMITING Last administered on 07/12/18 08:25; Admin Dose 4 MG; Start 07/11/18 at 09:30 Pantoprazole (Protonix Tab) 40 mg DAILY@06 PO Last administered on 07/12/18 05:26; Admin Dose 40 MG; Start 07/12/18 at 06:00 Bisacodyl (Dulcolax) 10 mg DAILY PRN PO CONSTIPATION; Start 07/11/18 at 09:30 Acetaminophen (Tylenol Tab) 650 mg Q6H PRN PO MILD PAIN(1-3)OR ELEVATED TEMP; Start 07/11/18 at 09:30 Miscellaneous Information (*Rx Drug Level Order Reminder*) 1 1100 ONCE XX ; Start 07/12/18 at 11:00; Stop 07/12/18 at 11:01 VTE Prophylaxis Risk score (from Ns)>0 risk: 3 SCD applied (from Ns): No SCD contraindication: other Lines/Catheters IV Catheter Type: Garcia in Place: No Assessment/Plan Hospital Course Subjective Bowel movements or passing regularly, otherwise no acute issues Objective Physical exam General: Patient is laying in bed and answers questions appropriately Mentation: Patient is alert and oriented 4, Head: Normocephalic atraumatic Eyes: EOMI, pupils reactive to light Neck: Supple, nontender, midline Respiratory: Coarse to auscultation bilaterally Cardiovascular: regular rate, no obvious murmurs Gastrointestinal: non-tender to palpation, bowel sounds heard. Neurological: Moves all extremities spontaneously Skin: No new skin lesions Assessment/Plan 1. 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 BITA performed with thickening/densities on tricuspid valve. Unable to rule out vegetation. - ID on board and appreciate recommendations. Will treat for endocarditis in setting of MRSA bacteremia and hx drug use 2. MRSA bacteremia- resolved - Repeat blood culture negative. Remains afebrile with nl WBC. - ID on board and appreciate recommendations. 3. Poorly controlled diabetes- improved - A1c noted - sugars remain controlled - Endocrinology consultation appreciated. Continue on current insulin and glimepiride. 4. Extensive bilateral multilobar pneumonia - Patient found with MRSA in sputum and CT scan showing cavitating lesions but improvement in bilateral infiltrate - Pulm on board and continue current treatment. Cocci studies. After review of recent CT scan concern for septic emboli. BITA performed - Repeat CT scan performed this am showing "Multifocal bilateral areas of p neumonia are again present and have diminished in overall size however there is interval development of multiple foci of lucencies within the areas of consolidation suggestive for bronchiectasis or developing small cavitary lesions." - ID recommendations appreciated 5. Homelessness - SW on board 6. History of meth abuse - Patient states last use was 2 weeks prior to admission. Counseled on c essation. 7. Tobacco use - Cessation advised. 8. Iron Deficient anemia. - Continue oral iron. - H&H stable. 9. Mild asthma. - Currently stable Constipation -Encourage use of laxatives as needed 10. Disposition - Medically stable for discharge once accepted to SNF HAYDEE RAYO Jul 12, 2018 10:23
[2018-07-12 14:00] VITALS: BP 124/75; PULSE 117
--- NOTE | 2018-07-12 16:25 | CONS ---
Assessment/Plan Assessment/Plan Hospital Course (Demo Recall) No events AFB smears negative 3 sets, cocci neg Microbiology: Blood culture on June 08 grew MRSA, repeat blood cultures negative, sputum culture on June 16 grew Talia albicans and MRSA. Serology for HIV negative Antimicrobials: Rifampin Vanco Physical examination: Well-developed middle-aged woman who is alert in no distress. Head atraumatic normocephalic sclera nonicteric. Neck is supple chest rise symmetrical breath sounds diminished bases. Heart S1-S2. Abdomen soft bowel sounds present. Extremities without cyanosis. Assessment: 1. S/p sepsis 2. 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 Necrotizing MRSA pneumonia with areas of cavitation per CT ?septic emboli 4. Homelessness 5. Poorly controlled diabetes 6. Meth amphetamine abuse Plan: Remains stable, pending discharge arrangements on IV Vanco last dose August 05 Consultation Date/Type/Reason Admit Date/Time Jun 08, 2018 at 23:53 Initial Consult Date Type of Consult id Requesting Provider: HAYDEE RAYO Date/Time of Note DATE: 07/12/18 TIME: 16:25 Exam/Review of Systems Exam Vitals Vital Signs Date Temp Pulse Resp B/P (MAP) Pulse Ox O2 O2 Flow FiO2 Time Delivery Rate 07/12/18 98.4 117 124/75 98 Room Air 14:00 (91) 07/12/18 18 09:05 Intake and Output 07/11/18 07/11/18 07/12/18 1515:00 23:00 07:00 IntakeIntake Total 250 ml 1550 ml 250 ml BalanceBalance 250 ml 1550 ml 250 ml Results Result Diagram: 07/11/18 0807/11/18 0805 Results 24hrs Laboratory Tests Test 07/11/18 17:26 07/11/18 20:52 07/12/18 07:57 07/12/18 10:53 Bedside Glucose 128 154 115 Vancomycin Level 9.3 L Trough Test 07/12/18 12:07 Bedside Glucose 94 Medications Medication Current Medications Diagnostic Test (Pha) (Accu-Chek) 1 ea 02 XX Last administered on 07/05/18at 01:50; Admin Dose 1 EA; Start 06/10/18 at 02:00 Insulin Aspart (Novolog Insulin Pen) NOVOLOG *MILD* ALGORITHM WITH MEALS BEDTIME SC Last administered on 07/11/18at 12:19; Admin Dose 1 UNIT; Start 06/09/18 at 18:00 Miscellaneous Information 1 ea NOTE XX ; Start 06/09/18 at 14:30 Glucose (Glutose) 15 gm Q15M PRN PO DECREASED GLUCOSE; Start 06/09/18 at 14:30 Glucose (Glutose) 22.5 gm Q15M PRN PO DECREASED GLUCOSE; Start 06/09/18 at 14:30 Dextrose (D50w Syringe) 25 ml Q15M PRN IV DECREASED GLUCOSE Last administered on 06/29/18at 12:11; Admin Dose 25 ML; Start 06/09/18 at 14:30 Dextrose (D50w Syringe) 50 ml Q15M PRN IV DECREASED GLUCOSE; Start 06/09/18 at 14:30 Glucagon (Glucagen) 1 mg Q15M PRN IM DECREASED GLUCOSE; Start 06/09/18 at 14:30 Glucose (Glutose) 15 gm Q15M PRN BUCCAL DECREASED GLUCOSE; Start 06/09/18 at 14:30 Ferrous Sulfate (Ferrous Sulfate (Ec)) 325 mg DAILY PO Last administered on 07/12/18at 08:25; Admin Dose 325 MG; Start 06/13/18 at 10:30; Stop 08/12/18 at 10:29 Levalbuterol (Xopenex Neb) 1.25 mg Q6H RESP THERAPY PRN HHN sob/wheezing Last administered on 07/12/18at 09:05; Admin Dose 1.25 MG; Start 06/14/18 at 09:00 Guaifenesin/ Dextromethorphan (Mucinex Dm) 1 tab BID PO Last administered on 07/12/18at 08:25; Admin Dose 1 TAB; Start 06/14/18 at 09:30 Metformin HCl (Glucophage) 1,000 mg BID WITH MEALS PO Last administered on 07/12/18 08:23; Admin Dose 1,000 MG; Start 06/16/18 at 18:00 Ascorbic Acid (Vitamin C) 500 mg DAILY PO Last administered on 07/12/18 08:24; Admin Dose 500 MG; Start 06/17/18 at 09:00; Stop 08/16/18 at 08:59 Guaifenesin/ Codeine Phosphate (Robitussin Ac Liquid Cup) 5 ml Q4H PRN PO cough Last administered on 06/18/18at 20:25; Admin Dose 5 ML; Start 06/18/18 at 12:00 Rifampin (Rifampin) 600 mg DAILY PO Last administered on 07/12/18 08:24; Admin Dose 600 MG; Start 06/20/18 at 14:30 Glimepiride (Amaryl) 4 mg QHS PO Last administered on 07/11/18 20:54; Admin Dose 4 MG; Start 06/25/18 at 21:00 Glimepiride (Amaryl) 2 mg AC BREAKFAST PO Last administered on 07/12/18 08:24; Admin Dose 2 MG; Start 06/26/18 at 07:00 Vancomycin HCl (Vanco Iv Per Pharmacy) VANCOMYCIN PER PHARMACY PER PROTOCOL XX ; Start 06/28/18 at 16:00 IV Flush (NS 10 ml) 10 ml PRN PRN IV FLUSH LINE; Start 06/28/18 at 18:30 Magnesium Citrate (Citroma) 300 ml DAILY PRN PO constipation Last administered on 07/10/18 15:32; Admin Dose 300 ML; Start 06/29/18 at 15:00 Zolpidem Tartrate (Ambien) 10 mg HS PRN PO insomnia Last administered on 07/11/18 21:46; Admin Dose 10 MG; Start 06/29/18 at 17:00 Multi-Ingredient Ointment (Eucerin Cream) 1 applic BID TOP Last administered on 07/12/18 08:34; Admin Dose 1 APPLIC; Start 07/01/18 at 21:30 Insulin Human NPH (Humulin N) 12 unit DAILY@20 SC Last administered on 07/11/18 20:57; Admin Dose 12 UNIT; Start 07/02/18 at 20:00 Alteplase, Recombinant (Cathflo (Activase)) 2 mg MAY REPEAT X1 PRN CATHETER IF CATHETER REMAINS OCCULUDED Last administered on 07/11/18 23:23; Admin Dose 2 MG; Start 07/05/18 at 18:00 IV Flush (NS 10 ml) 10 ml PRN PRN IV FLUSH LINE; Start 07/07/18 at 19:00 Docusate Sodium (Colace) 100 mg DAILY PO Last administered on 07/12/18 08:23; Admin Dose 100 MG; Start 07/11/18 at 09:30 Ondansetron HCl (Zofran Inj) 4 mg Q6H PRN IV NAUSEA AND/OR VOMITING Last admi nistered on 07/12/18at 08:25; Admin Dose 4 MG; Start 07/11/18 at 09:30 Pantoprazole (Protonix Tab) 40 mg DAILY@06 PO Last administered on 07/12/18at 05:26; Admin Dose 40 MG; Start 07/12/18 at 06:00 Bisacodyl (Dulcolax) 10 mg DAILY PRN PO CONSTIPATION; Start 07/11/18 at 09:30 Acetaminophen (Tylenol Tab) 650 mg Q6H PRN PO MILD PAIN(1-3)OR ELEVATED TEMP; Start 07/11/18 at 09:30 Vancomycin HCl 1.25 gm/Sodium Chloride 250 ml @ 83.333 mls/ hr Q8H IVPB ; Start 07/12/18 at 20:00 JOSE GOVEA NP Jul 12, 2018 16:25
[2018-07-12 20:00] VITALS: BP 127/80; PULSE 117; RESP 18
[2018-07-12] MEDS: VANCOMYCIN HCL 1.25 GM in SOD CHLORIDE 0.9% 250 ML IVPB SCH (21:05)
[2018-07-12] MEDS: GLIMEPIRIDE 4 MG TAB PO SCH (21:06)
[2018-07-12] MEDS: NPH, HUMAN INSULIN ISOPHANE 3ML VIAL SC SCH (21:12)
[2018-07-13 02:00] VITALS: BP 109/76; PULSE 118; RESP 18
[2018-07-13] MEDS: ACCU-CHEK XX SCH (02:00)
[2018-07-13] MEDS: VANCOMYCIN HCL 1.25 GM in SOD CHLORIDE 0.9% 250 ML IVPB SCH ×3 (04:16→20:30)
[2018-07-13] MEDS: PANTOPRAZOLE (EC) 40 MG TAB PO SCH (05:33)
[2018-07-13 07:50] VITALS: BP 105/56; PULSE 110; RESP 18
[2018-07-13] MEDS: DOCUSATE SODIUM 100 MG CAP PO SCH (08:26)
[2018-07-13] MEDS: ASCORBIC ACID 500 MG TAB PO SCH (08:26)
[2018-07-13] MEDS: metFORMIN 500 MG TAB PO SCH ×2 (08:26→18:48)
[2018-07-13] MEDS: FERROUS SULFATE (EC) 325 MG TAB PO SCH (08:26)
[2018-07-13] MEDS: INSULIN ASPART [NOVOLOG] 3 ML PEN SC SCH ×4 (08:26→20:39)
[2018-07-13] MEDS: GUAIFENESIN/DM (SR) TAB PO SCH ×2 (08:27→20:31)
[2018-07-13] MEDS: RIFAMPIN 300 MG CAP PO SCH (08:27)
[2018-07-13] MEDS: GLIMEPIRIDE 2 MG TAB PO SCH (08:30)
[2018-07-13] MEDS: ONDANSETRON 4 MG INJ IV PRN (08:31)
--- NOTE | 2018-07-13 08:49 | CONS ---
Consult Date/Type/Reason Admit Date/Time Jun 08, 2018 at 23:53 Initial Consult Date 06/26/18 Type of Consultation: cv Requesting Provider: HAYDEE RAYO Date/Time of Note DATE: 07/13/18 TIME: 08:49 Subjective Cardiology follow-up progress Subjective: Discussed with the staff . no report of chest pain Patient WITH LESS cough and shortness of breath today Objective: General: no acute distress HEENT: NC/AT. pupils are equal. round. NECK: NO JVD. no stridor. CV: RRR. systolic murmur; no gallop or rubs. PULM: no wheezing . GI: SOFT, NT, ND, no rebound or guarding Extremity: No significant LE edema. no clubbing. neuro: awake and alert Psych: calm and pleasant rectal: deferred Derm: Multiple tattoos Repeat echocardiogram on 06/26/2018 shows: Normal left ventricular systolic function. Normal left ventricular cavity size. Left ventricular wall thickness upper limits of normal. Ejection fraction is visually estimated at 60 %. Tissue Doppler/Mitral Doppler indices are consistent with impaired relaxation (Stage I diastolic dysfunction). Normal right ventricular size. Normal right ventricular systolic function. The left atrium is normal in size. The right atrium is normal in size. No significant valvular stenosis or regurgitation seen. Normal pericardium with no significant pericardial effusion. BITA 06/28/18 Normal LV size and systolic function with trace MR and TR Echo density/thickening of the tricuspid valve is noted. Vegetation cannot be ruled out Objective Vitals Vital Signs Date Temp Pulse Resp B/P (MAP) Pulse Ox O2 O2 Flow FiO2 Time Delivery Rate 07/13/18 98.1 110 18 105/56 97 Room Air 07:50 (72) 07/12/18 21 09:05 Intake and Output 07/12/18 07/12/18 07/13/18 1515:00 23:00 07:00 IntakeIntake Total 1150 ml 400 ml 750 ml BalanceBalance 1150 ml 400 ml 750 ml Results/Medications Result Diagram: 07/11/18 0805 07/13/18 0618 Results 24 hrs Laboratory Tests Test 07/12/18 10:53 07/12/18 12:07 07/12/18 17:24 07/12/18 21:07 Vancomycin Level 9.3 L Trough Bedside Glucose 94 115 166 Test 07/13/18 06:18 07/13/18 08:08 Blood Urea Nitrogen 14 Creatinine 0.32 L Bedside Glucose 168 Medications Current Medications Diagnostic Test (Pha) (Accu-Chek) 1 ea 02 XX Last administered on 07/05/18at 01:50; Admin Dose 1 EA; Start 06/10/18 at 02:00 Insulin Aspart (Novolog Insulin Pen) NOVOLOG *MILD* ALGORITHM WITH MEALS BEDTIME SC Last administered on 07/13/18 08:26; Admin Dose 1 UNIT; Start 06/09/18 at 18:00 Miscellaneous Information 1 ea NOTE XX ; Start 06/09/18 at 14:30 Glucose (Glutose) 15 gm Q15M PRN PO DECREASED GLUCOSE; Start 06/09/18 at 14:30 Glucose (Glutose) 22.5 gm Q15M PRN PO DECREASED GLUCOSE; Start 06/09/18 at 14:30 Dextrose (D50w Syringe) 25 ml Q15M PRN IV DECREASED GLUCOSE Last administered on 06/29/18at 12:11; Admin Dose 25 ML; Start 06/09/18 at 14:30 Dextrose (D50w Syringe) 50 ml Q15M PRN IV DECREASED GLUCOSE; Start 06/09/18 at 14:30 Glucagon (Glucagen) 1 mg Q15M PRN IM DECREASED GLUCOSE; Start 06/09/18 at 14:30 Glucose (Glutose) 15 gm Q15M PRN BUCCAL DECREASED GLUCOSE; Start 06/09/18 at 14:30 Ferrous Sulfate (Ferrous Sulfate (Ec)) 325 mg DAILY PO Last administered on 07/13/18 08:26; Admin Dose 325 MG; Start 06/13/18 at 10:30; Stop 08/12/18 at 10:29 Levalbuterol (Xopenex Neb) 1.25 mg Q6H RESP THERAPY PRN HHN sob/wheezing Last administered on 07/12/18at 09:05; Admin Dose 1.25 MG; Start 06/14/18 at 09:00 Guaifenesin/ Dextromethorphan (Mucinex Dm) 1 tab BID PO Last administered on 07/13/18 08:27; Admin Dose 1 TAB; Start 06/14/18 at 09:30 Metformin HCl (Glucophage) 1,000 mg BID WITH MEALS PO Last administered on 07/13/18 08:26; Admin Dose 1,000 MG; Start 06/16/18 at 18:00 Ascorbic Acid (Vitamin C) 500 mg DAILY PO Last administered on 07/13/18 08:26; Admin Dose 500 MG; Start 06/17/18 at 09:00; Stop 08/16/18 at 08:59 Guaifenesin/ Codeine Phosphate (Robitussin Ac Liquid Cup) 5 ml Q4H PRN PO cough Last administered on 06/18/18 20:25; Admin Dose 5 ML; Start 06/18/18 at 12:00 Rifampin (Rifampin) 600 mg DAILY PO Last administered on 07/13/18 08:27; Admin Dose 600 MG; Start 06/20/18 at 14:30 Glimepiride (Amaryl) 4 mg QHS PO Last administered on 07/12/18 21:06; Admin Dose 4 MG; Start 06/25/18 at 21:00 Glimepiride (Amaryl) 2 mg AC BREAKFAST PO Last administered on 07/13/18 08:30; Admin Dose 2 MG; Start 06/26/18 at 07:00 Vancomycin HCl (Vanco Iv Per Pharmacy) VANCOMYCIN PER PHARMACY PER PROTOCOL XX ; Start 06/28/18 at 16:00 IV Flush (NS 10 ml) 10 ml PRN PRN IV FLUSH LINE; Start 06/28/18 at 18:30 Magnesium Citrate (Citroma) 300 ml DAILY PRN PO constipation Last administered on 07/10/18 15:32; Admin Dose 300 ML; Start 06/29/18 at 15:00 Zolpidem Tartrate (Ambien) 10 mg HS PRN PO insomnia Last administered on 07/11/18 21:46; Admin Dose 10 MG; Start 06/29/18 at 17:00 Multi-Ingredient Ointment (Eucerin Cream) 1 applic BID TOP Last administered on 07/12/18 21:24; Admin Dose 1 APPLIC; Start 07/01/18 at 21:30 Insulin Human NPH (Humulin N) 12 unit DAILY@20 SC Last administered on 07/12/18 21:12; Admin Dose 12 UNIT; Start 07/02/18 at 20:00 Alteplase, Recombinant (Cathflo (Activase)) 2 mg MAY REPEAT X1 PRN CATHETER IF CATHETER REMAINS OCCULUDED Last administered on 07/11/18 23:23; Admin Dose 2 MG; Start 07/05/18 at 18:00 IV Flush (NS 10 ml) 10 ml PRN PRN IV FLUSH LINE; Start 07/07/18 at 19:00 Docusate Sodium (Colace) 100 mg DAILY PO Last administered on 07/13/18 08:26; Admin Dose 100 MG; Start 07/11/18 at 09:30 Ondansetron HCl (Zofran Inj) 4 mg Q6H PRN IV NAUSEA AND/OR VOMITING Last admi nistered on 07/13/18 08:31; Admin Dose 4 MG; Start 07/11/18 at 09:30 Pantoprazole (Protonix Tab) 40 mg DAILY@06 PO Last administered on 07/13/18 05:33; Admin Dose 40 MG; Start 07/12/18 at 06:00 Bisacodyl (Dulcolax) 10 mg DAILY PRN PO CONSTIPATION; Start 07/11/18 at 09:30 Acetaminophen (Tylenol Tab) 650 mg Q6H PRN PO MILD PAIN(1-3)OR ELEVATED TEMP; Start 07/11/18 at 09:30 Vancomycin HCl 1.25 gm/Sodium Chloride 250 ml @ 83.333 mls/ hr Q8H IVPB Last administered on 07/13/18 04:16; Admin Dose 83.333 MLS/HR; Start 07/12/18 at 20:00 Assessment/Plan Hospital Course (Demo Recall) 1. MRSA bacteremia, with a possible vegetation on tricuspid valve on the transe sophageal echocardiogram 2. Pneumonia 3. Status post DKA 4. Diabetes 5. Anemia 6. Homelessness Recommendations: Diabetic management as per internal medicine and endocrine training consultant. Antibiotic management as per infectious disease recommendations. replace lytes including Mg prn Pulmonary care as per internal medicine thank you for this referral. We will continue to follow along with you as needed ABDI JAY MD [facility] ABDI JAY MD Jul 13, 2018 08:49
[2018-07-13] MEDS: EUCERIN 113 GM CR TOP SCH ×2 (11:51→20:40)
[2018-07-13 14:20] VITALS: BP 121/81; PULSE 108; RESP 16
--- NOTE | 2018-07-13 14:34 | PN ---
Date/Time of Note Date/Time of Note DATE: 07/13/18 TIME: 14:34 Objective Vitals Vital Signs Date Temp Pulse Resp B/P (MAP) Pulse Ox O2 O2 Flow FiO2 Time Delivery Rate 07/13/18 98.2 108 16 121/81 98 Room Air 14:20 (94) 07/12/18 21 09:05 Intake and Output 07/12/18 07/12/18 07/13/18 1515:00 23:00 07:00 IntakeIntake Total 1150 ml 400 ml 750 ml BalanceBalance 1150 ml 400 ml 750 ml Results Result Diagram: 07/11/18 0805 07/13/18 0618 Medications Medications Current Medications Diagnostic Test (Pha) (Accu-Chek) 1 ea 02 XX Last administered on 07/05/18at 01:50; Admin Dose 1 EA; Start 06/10/18 at 02:00 Insulin Aspart (Novolog Insulin Pen) NOVOLOG *MILD* ALGORITHM WITH MEALS BEDTIME SC Last administered on 07/13/18at 11:57; Admin Dose 1 UNIT; Start 06/09/18 at 18:00 Miscellaneous Information 1 ea NOTE XX ; Start 06/09/18 at 14:30 Glucose (Glutose) 15 gm Q15M PRN PO DECREASED GLUCOSE; Start 06/09/18 at 14:30 Glucose (Glutose) 22.5 gm Q15M PRN PO DECREASED GLUCOSE; Start 06/09/18 at 14:30 Dextrose (D50w Syringe) 25 ml Q15M PRN IV DECREASED GLUCOSE Last administered on 06/29/18at 12:11; Admin Dose 25 ML; Start 06/09/18 at 14:30 Dextrose (D50w Syringe) 50 ml Q15M PRN IV DECREASED GLUCOSE; Start 06/09/18 at 14:30 Glucagon (Glucagen) 1 mg Q15M PRN IM DECREASED GLUCOSE; Start 06/09/18 at 14:30 Glucose (Glutose) 15 gm Q15M PRN BUCCAL DECREASED GLUCOSE; Start 06/09/18 at 14:30 Ferrous Sulfate (Ferrous Sulfate (Ec)) 325 mg DAILY PO Last administered on 07/13/18at 08:26; Admin Dose 325 MG; Start 06/13/18 at 10:30; Stop 08/12/18 at 10:29 Levalbuterol (Xopenex Neb) 1.25 mg Q6H RESP THERAPY PRN HHN sob/wheezing Last administered on 07/12/18 09:05; Admin Dose 1.25 MG; Start 06/14/18 at 09:00 Guaifenesin/ Dextromethorphan (Mucinex Dm) 1 tab BID PO Last administered on 07/13/18 08:27; Admin Dose 1 TAB; Start 06/14/18 at 09:30 Metformin HCl (Glucophage) 1,000 mg BID WITH MEALS PO Last administered on 07/13/18 08:26; Admin Dose 1,000 MG; Start 06/16/18 at 18:00 Ascorbic Acid (Vitamin C) 500 mg DAILY PO Last administered on 07/13/18 08:26; Admin Dose 500 MG; Start 06/17/18 at 09:00; Stop 08/16/18 at 08:59 Guaifenesin/ Codeine Phosphate (Robitussin Ac Liquid Cup) 5 ml Q4H PRN PO cough Last administered on 06/18/18 20:25; Admin Dose 5 ML; Start 06/18/18 at 12:00 Rifampin (Rifampin) 600 mg DAILY PO Last administered on 07/13/18 08:27; Admin Dose 600 MG; Start 06/20/18 at 14:30 Glimepiride (Amaryl) 4 mg QHS PO Last administered on 07/12/18 21:06; Admin Dose 4 MG; Start 06/25/18 at 21:00 Glimepiride (Amaryl) 2 mg AC BREAKFAST PO Last administered on 07/13/18 08:30; Admin Dose 2 MG; Start 06/26/18 at 07:00 Vancomycin HCl (Vanco Iv Per Pharmacy) VANCOMYCIN PER PHARMACY PER PROTOCOL XX ; Start 06/28/18 at 16:00 IV Flush (NS 10 ml) 10 ml PRN PRN IV FLUSH LINE; Start 06/28/18 at 18:30 Magnesium Citrate (Citroma) 300 ml DAILY PRN PO constipation Last administered on 07/10/18 15:32; Admin Dose 300 ML; Start 06/29/18 at 15:00 Zolpidem Tartrate (Ambien) 10 mg HS PRN PO insomnia Last administered on 07/11/18 21:46; Admin Dose 10 MG; Start 06/29/18 at 17:00 Multi-Ingredient Ointment (Eucerin Cream) 1 applic BID TOP Last administered on 07/13/18 11:51; Admin Dose 1 APPLIC; Start 07/01/18 at 21:30 Insulin Human NPH (Humulin N) 12 unit DAILY@20 SC Last administered on 07/12/18 21:12; Admin Dose 12 UNIT; Start 07/02/18 at 20:00 Alteplase, Recombinant (Cathflo (Activase)) 2 mg MAY REPEAT X1 PRN CATHETER IF CATHETER REMAINS OCCULUDED Last administered on 07/11/18 23:23; Admin Dose 2 MG; Start 07/05/18 at 18:00 IV Flush (NS 10 ml) 10 ml PRN PRN IV FLUSH LINE; Start 07/07/18 at 19:00 Docusate Sodium (Colace) 100 mg DAILY PO Last administered on 07/13/18 08:26; Admin Dose 100 MG; Start 07/11/18 at 09:30 Ondansetron HCl (Zofran Inj) 4 mg Q6H PRN IV NAUSEA AND/OR VOMITING Last administered on 07/13/18 08:31; Admin Dose 4 MG; Start 07/11/18 at 09:30 Pantoprazole (Protonix Tab) 40 mg DAILY@06 PO Last administered on 07/13/18 05:33; Admin Dose 40 MG; Start 07/12/18 at 06:00 Bisacodyl (Dulcolax) 10 mg DAILY PRN PO CONSTIPATION; Start 07/11/18 at 09:30 Acetaminophen (Tylenol Tab) 650 mg Q6H PRN PO MILD PAIN(1-3)OR ELEVATED TEMP; Start 07/11/18 at 09:30 Vancomycin HCl 1.25 gm/Sodium Chloride 250 ml @ 83.333 mls/ hr Q8H IVPB Last administered on 07/13/18 11:50; Admin Dose 83.333 MLS/HR; Start 07/12/18 at 20:00 VTE Prophylaxis Risk score (from Nsg)>0 risk: 3 SCD applied (from Nsg): No SCD contraindication: low risk/ambulating Lines/Catheters IV Catheter Type: Garcia in Place: No Assessment/Plan Hospital Course Subjective Bowel movements or passing regularly, otherwise no acute issues Objective Physical exam General: Patient is laying in bed and answers questions appropriately Mentation: Patient is alert and oriented 4, Head: Normocephalic atraumatic Eyes: EOMI, pupils reactive to light Neck: Supple, nontender, midline Respiratory: Coarse to auscultation bilaterally Cardiovascular: regular rate, no obvious murmurs Gastrointestinal: non-tender to palpation, bowel sounds heard. Neurological: Moves all extremities spontaneously Skin: No new skin lesions Assessment/Plan 1. 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 BITA performed with thickening/densities on tricuspid valve. Unable to rule out vegetation. - ID on board and appreciate recommendations. Will treat for endocarditis in setting of MRSA bacteremia and hx drug use 2. MRSA bacteremia- resolved - Repeat blood culture negative. Remains afebrile with nl WBC. - ID on board and appreciate recommendations. 3. Poorly controlled diabetes- improved - A1c noted - sugars remain controlled - Endocrinology consultation appreciated. Continue on current insulin and glimepiride. 4. Extensive bilateral multilobar pneumonia - Patient found with MRSA in sputum and CT scan showing cavitating lesions but improvement in bilateral infiltrate - Pulm on board and continue current treatment. Cocci studies. After review of recent CT scan concern for septic emboli. BITA performed - Repeat CT scan performed this am showing "Multifocal bilateral areas of pneumonia are again present and have diminished in overall size however there is interval development of multiple foci of lucencies within the areas of consolidation suggestive for bronchiectasis or developing small cavitary lesions." - ID recommendations appreciated 5. Homelessness - SW on board 6. History of meth abuse - Patient states last use was 2 weeks prior to admission. Counseled on cessation. 7. Tobacco use - Cessation advised. 8. Iron Deficient anemia. - Continue oral iron. - H&H stable. 9. Mild asthma. - Currently stable Constipation -Encourage use of laxatives as needed 10. Disposition - Medically stable for discharge once accepted to [facility] HAYDEE ARYO Jul 13, 2018 14:34
--- NOTE | 2018-07-13 14:58 | CONS ---
Assessment/Plan Assessment/Plan Hospital Course (Demo Recall) No events. Alert, feels good, no fevers AFB smears negative 3 sets, cocci neg Microbiology: Blood culture on June 08 grew MRSA, repeat blood cultures negative, sputum culture on June 16 grew Talia albicans and MRSA. Serology for HIV negative Antimicrobials: Rifampin Vanco Physical examination: Well-developed middle-aged woman who is alert in no distress. Head atraumatic normocephalic sclera nonicteric. Neck is supple chest rise symmetrical breath sounds diminished bases. Heart S1-S2. Abdomen soft bowel sounds present. Extremities without cyanosis. Assessment: 1. S/p sepsis 2. 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 Necrotizing MRSA pneumonia with areas of cavitation per CT ?septic emboli 4. Homelessness 5. Poorly controlled diabetes 6. Meth amphetamine abuse Plan: Remains stable, pending discharge arrangements on IV Vanco last dose August 05 Consultation Date/Type/Reason Admit Date/Time Jun 08, 2018 at 23:53 Initial Consult Date Type of Consult id Requesting Provider: HAYDEE RAYO Date/Time of Note DATE: 07/13/18 TIME: 14:57 Exam/Review of Systems Exam Vitals Vital Signs Date Temp Pulse Resp B/P (MAP) Pulse Ox O2 O2 Flow FiO2 Time Delivery Rate 07/13/18 98.2 108 16 121/81 98 Room Air 14:20 (94) 07/12/18 21 09:05 Intake and Output 07/12/18 07/12/18 07/13/18 1515:00 23:00 07:00 IntakeIntake Total 1150 ml 400 ml 750 ml BalanceBalance 1150 ml 400 ml 750 ml Results Result Diagram: 07/11/18 0805 07/13/18 0618 Results 24hrs Laboratory Tests Test 07/12/18 17:24 07/12/18 21:07 07/13/18 06:18 07/13/18 08:08 Bedside Glucose 115 166 168 Blood Urea Nitrogen 14 Creatinine 0.32 L Test 07/13/18 11:53 Bedside Glucose 149 Medications Medication Current Medications Diagnostic Test (Pha) (Accu-Chek) 1 ea 02 XX Last administered on 07/05/18at 01:50; Admin Dose 1 EA; Start 06/10/18 at 02:00 Insulin Aspart (Novolog Insulin Pen) NOVOLOG *MILD* ALGORITHM WITH MEALS BEDTI ME SC Last administered on 07/13/18 11:57; Admin Dose 1 UNIT; Start 06/09/18 at 18:00 Miscellaneous Information 1 ea NOTE XX ; Start 06/09/18 at 14:30 Glucose (Glutose) 15 gm Q15M PRN PO DECREASED GLUCOSE; Start 06/09/18 at 14:30 Glucose (Glutose) 22.5 gm Q15M PRN PO DECREASED GLUCOSE; Start 06/09/18 at 14:30 Dextrose (D50w Syringe) 25 ml Q15M PRN IV DECREASED GLUCOSE Last administered on 06/29/18at 12:11; Admin Dose 25 ML; Start 06/09/18 at 14:30 Dextrose (D50w Syringe) 50 ml Q15M PRN IV DECREASED GLUCOSE; Start 06/09/18 at 14:30 Glucagon (Glucagen) 1 mg Q15M PRN IM DECREASED GLUCOSE; Start 06/09/18 at 14:30 Glucose (Glutose) 15 gm Q15M PRN BUCCAL DECREASED GLUCOSE; Start 06/09/18 at 14:30 Ferrous Sulfate (Ferrous Sulfate (Ec)) 325 mg DAILY PO Last administered on 07/13/18at 08:26; Admin Dose 325 MG; Start 06/13/18 at 10:30; Stop 08/12/18 at 10:29 Levalbuterol (Xopenex Neb) 1.25 mg Q6H RESP THERAPY PRN HHN sob/wheezing Last administered on 07/12/18at 09:05; Admin Dose 1.25 MG; Start 06/14/18 at 09:00 Guaifenesin/ Dextromethorphan (Mucinex Dm) 1 tab BID PO Last administered on 07/13/18 08:27; Admin Dose 1 TAB; Start 06/14/18 at 09:30 Metformin HCl (Glucophage) 1,000 mg BID WITH MEALS PO Last administered on 07/13/18 08:26; Admin Dose 1,000 MG; Start 06/16/18 at 18:00 Ascorbic Acid (Vitamin C) 500 mg DAILY PO Last administered on 07/13/18 08:26; Admin Dose 500 MG; Start 06/17/18 at 09:00; Stop 08/16/18 at 08:59 Guaifenesin/ Codeine Phosphate (Robitussin Ac Liquid Cup) 5 ml Q4H PRN PO cough Last administered on 06/18/18 20:25; Admin Dose 5 ML; Start 06/18/18 at 12:00 Rifampin (Rifampin) 600 mg DAILY PO Last administered on 07/13/18 08:27; Admin Dose 600 MG; Start 06/20/18 at 14:30 Glimepiride (Amaryl) 4 mg QHS PO Last administered on 07/12/18 21:06; Admin Dose 4 MG; Start 06/25/18 at 21:00 Glimepiride (Amaryl) 2 mg AC BREAKFAST PO Last administered on 07/13/18 08:30; Admin Dose 2 MG; Start 06/26/18 at 07:00 Vancomycin HCl (Vanco Iv Per Pharmacy) VANCOMYCIN PER PHARMACY PER PROTOCOL XX ; Start 06/28/18 at 16:00 IV Flush (NS 10 ml) 10 ml PRN PRN IV FLUSH LINE; Start 06/28/18 at 18:30 Magnesium Citrate (Citroma) 300 ml DAILY PRN PO constipation Last administered on 07/10/18 15:32; Admin Dose 300 ML; Start 06/29/18 at 15:00 Zolpidem Tartrate (Ambien) 10 mg HS PRN PO insomnia Last administered on 07/11/18 21:46; Admin Dose 10 MG; Start 06/29/18 at 17:00 Multi-Ingredient Ointment (Eucerin Cream) 1 applic BID TOP Last administered on 07/13/18 11:51; Admin Dose 1 APPLIC; Start 07/01/18 at 21:30 Insulin Human NPH (Humulin N) 12 unit DAILY@20 SC Last administered on 07/12/18 21:12; Admin Dose 12 UNIT; Start 07/02/18 at 20:00 Alteplase, Recombinant (Cathflo (Activase)) 2 mg MAY REPEAT X1 PRN CATHETER IF CATHETER REMAINS OCCULUDED Last administered on 07/11/18 23:23; Admin Dose 2 MG; Start 07/05/18 at 18:00 IV Flush (NS 10 ml) 10 ml PRN PRN IV FLUSH LINE; Start 07/07/18 at 19:00 Docusate Sodium (Colace) 100 mg DAILY PO Last administered on 07/13/18 08:26; Admin Dose 100 MG; Start 07/11/18 at 09:30 Ondansetron HCl (Zofran Inj) 4 mg Q6H PRN IV NAUSEA AND/OR VOMITING Last administered on 07/13/18at 08:31; Admin Dose 4 MG; Start 07/11/18 at 09:30 Pantoprazole (Protonix Tab) 40 mg DAILY@06 PO Last administered on 07/13/18at 05 :33; Admin Dose 40 MG; Start 07/12/18 at 06:00 Bisacodyl (Dulcolax) 10 mg DAILY PRN PO CONSTIPATION; Start 07/11/18 at 09:30 Acetaminophen (Tylenol Tab) 650 mg Q6H PRN PO MILD PAIN(1-3)OR ELEVATED TEMP; Start 07/11/18 at 09:30 Vancomycin HCl 1.25 gm/Sodium Chloride 250 ml @ 83.333 mls/ hr Q8H IVPB Last administered on 07/13/18at 11:50; Admin Dose 83.333 MLS/HR; Start 07/12/18 at 20:00 JOSE GOVEA NP Jul 13, 2018 14:58
[2018-07-13 20:00] VITALS: BP 116/82; PULSE 114; RESP 18
[2018-07-13] MEDS: GLIMEPIRIDE 4 MG TAB PO SCH (20:31)
[2018-07-13] MEDS: NPH, HUMAN INSULIN ISOPHANE 3ML VIAL SC SCH (20:39)
[2018-07-14] MEDS: ACCU-CHEK XX SCH (01:25)
[2018-07-14 02:00] VITALS: BP 98/62; PULSE 103; RESP 17
[2018-07-14] MEDS: VANCOMYCIN HCL 1.25 GM in SOD CHLORIDE 0.9% 250 ML IVPB SCH ×3 (03:59→20:42)
[2018-07-14] MEDS: PANTOPRAZOLE (EC) 40 MG TAB PO SCH (05:28)
[2018-07-14 07:40] VITALS: BP 94/62; PULSE 80; RESP 18
[2018-07-14] MEDS: INSULIN ASPART [NOVOLOG] 3 ML PEN SC SCH ×4 (07:57→20:43)
[2018-07-14] MEDS: GLIMEPIRIDE 2 MG TAB PO SCH (07:57)
[2018-07-14] MEDS: metFORMIN 500 MG TAB PO SCH ×2 (07:57→17:37)
[2018-07-14] MEDS: DOCUSATE SODIUM 100 MG CAP PO SCH (08:16)
[2018-07-14] MEDS: FERROUS SULFATE (EC) 325 MG TAB PO SCH (08:16)
[2018-07-14] MEDS: RIFAMPIN 300 MG CAP PO SCH ×2 (08:16→08:45)
[2018-07-14] MEDS: GUAIFENESIN/DM (SR) TAB PO SCH ×2 (08:16→20:42)
[2018-07-14] MEDS: ASCORBIC ACID 500 MG TAB PO SCH (08:16)
[2018-07-14] MEDS: EUCERIN 113 GM CR TOP SCH ×2 (08:17→20:46)
[2018-07-14] MEDS: ONDANSETRON 4 MG INJ IV PRN (08:44)
--- NOTE | 2018-07-14 13:19 | PN ---
Date/Time of Note Date/Time of Note DATE: 07/14/18 TIME: 13:18 Objective Vitals Vital Signs Date Temp Pulse Resp B/P (MAP) Pulse Ox O2 O2 Flow FiO2 Time Delivery Rate 07/14/18 98.3 80 18 94/62 (73) 100 Room Air 07:40 07/12/18 21 09:05 Intake and Output 07/13/18 07/13/18 07/14/18 1515:00 23:00 07:00 IntakeIntake Total 900 ml 250 ml BalanceBalance 900 ml 250 ml Results Result Diagram: 07/11/18 0805 07/13/18 0618 Medications Medications Current Medications Diagnostic Test (Pha) (Accu-Chek) 1 ea 02 XX Last administered on 07/05/18at 01:50; Admin Dose 1 EA; Start 06/10/18 at 02:00 Insulin Aspart (Novolog Insulin Pen) NOVOLOG *MILD* ALGORITHM WITH MEALS BEDTIME SC Last administered on 07/13/18at 20:39; Admin Dose 1 UNIT; Start 06/09/18 at 18:00 Miscellaneous Information 1 ea NOTE XX ; Start 06/09/18 at 14:30 Glucose (Glutose) 15 gm Q15M PRN PO DECREASED GLUCOSE; Start 06/09/18 at 14:30 Glucose (Glutose) 22.5 gm Q15M PRN PO DECREASED GLUCOSE; Start 06/09/18 at 14:30 Dextrose (D50w Syringe) 25 ml Q15M PRN IV DECREASED GLUCOSE Last administered on 06/29/18at 12:11; Admin Dose 25 ML; Start 06/09/18 at 14:30 Dextrose (D50w Syringe) 50 ml Q15M PRN IV DECREASED GLUCOSE; Start 06/09/18 at 14:30 Glucagon (Glucagen) 1 mg Q15M PRN IM DECREASED GLUCOSE; Start 06/09/18 at 14:30 Glucose (Glutose) 15 gm Q15M PRN BUCCAL DECREASED GLUCOSE; Start 06/09/18 at 14:30 Ferrous Sulfate (Ferrous Sulfate (Ec)) 325 mg DAILY PO Last administered on 07/14/18at 08:16; Admin Dose 325 MG; Start 06/13/18 at 10:30; Stop 08/12/18 at 10:29 Levalbuterol (Xopenex Neb) 1.25 mg Q6H RESP THERAPY PRN HHN sob/wheezing Last administered on 07/12/18 09:05; Admin Dose 1.25 MG; Start 06/14/18 at 09:00 Guaifenesin/ Dextromethorphan (Mucinex Dm) 1 tab BID PO Last administered on 07/14/18 08:16; Admin Dose 1 TAB; Start 06/14/18 at 09:30 Metformin HCl (Glucophage) 1,000 mg BID WITH MEALS PO Last administered on 07/14/18 07:57; Admin Dose 1,000 MG; Start 06/16/18 at 18:00 Ascorbic Acid (Vitamin C) 500 mg DAILY PO Last administered on 07/14/18 08:16; Admin Dose 500 MG; Start 06/17/18 at 09:00; Stop 08/16/18 at 08:59 Guaifenesin/ Codeine Phosphate (Robitussin Ac Liquid Cup) 5 ml Q4H PRN PO cough Last administered on 06/18/18 20:25; Admin Dose 5 ML; Start 06/18/18 at 12:00 Rifampin (Rifampin) 600 mg DAILY PO Last administered on 07/14/18 08:45; Admin Dose 600 MG; Start 06/20/18 at 14:30 Glimepiride (Amaryl) 4 mg QHS PO Last administered on 07/13/18 20:31; Admin Dose 4 MG; Start 06/25/18 at 21:00 Glimepiride (Amaryl) 2 mg AC BREAKFAST PO Last administered on 07/14/18 07:57; Admin Dose 2 MG; Start 06/26/18 at 07:00 Vancomycin HCl (Vanco Iv Per Pharmacy) VANCOMYCIN PER PHARMACY PER PROTOCOL XX ; Start 06/28/18 at 16:00 IV Flush (NS 10 ml) 10 ml PRN PRN IV FLUSH LINE; Start 06/28/18 at 18:30 Magnesium Citrate (Citroma) 300 ml DAILY PRN PO constipation Last administered on 07/10/18 15:32; Admin Dose 300 ML; Start 06/29/18 at 15:00 Zolpidem Tartrate (Ambien) 10 mg HS PRN PO insomnia Last administered on 07/11/18 21:46; Admin Dose 10 MG; Start 06/29/18 at 17:00 Multi-Ingredient Ointment (Eucerin Cream) 1 applic BID TOP Last administered on 07/14/18at 08:17; Admin Dose 1 APPLIC; Start 07/01/18 at 21:30 Insulin Human NPH (Humulin N) 12 unit DAILY@20 SC Last administered on 07/13at 20:39; Admin Dose 12 UNIT; Start 07/02/18 at 20:00 Alteplase, Recombinant (Cathflo (Activase)) 2 mg MAY REPEAT X1 PRN CATHETER IF CATHETER REMAINS OCCULUDED Last administered on 07/11/18at 23:23; Admin Dose 2 MG; Start 07/05/18 at 18:00 IV Flush (NS 10 ml) 10 ml PRN PRN IV FLUSH LINE; Start 07/07/18 at 19:00 Docusate Sodium (Colace) 100 mg DAILY PO Last administered on 07/14/18at 08:16; Admin Dose 100 MG; Start 07/11/18 at 09:30 Ondansetron HCl (Zofran Inj) 4 mg Q6H PRN IV NAUSEA AND/OR VOMITING Last administered on 07/14/18at 08:44; Admin Dose 4 MG; Start 07/11/18 at 09:30 Pantoprazole (Protonix Tab) 40 mg DAILY@06 PO Last administered on 07/14/18at 05:28; Admin Dose 40 MG; Start 07/12/18 at 06:00 Bisacodyl (Dulcolax) 10 mg DAILY PRN PO CONSTIPATION; Start 07/11/18 at 09:30 Acetaminophen (Tylenol Tab) 650 mg Q6H PRN PO MILD PAIN(1-3)OR ELEVATED TEMP; Start 07/11/18 at 09:30 Vancomycin HCl 1.25 gm/Sodium Chloride 250 ml @ 83.333 mls/ hr Q8H IVPB Last administered on 07/14/18at 11:56; Admin Dose 83.333 MLS/HR; Start 07/12/18 at 20:00 VTE Prophylaxis Risk score (from Nsg)>0 risk: 3 SCD applied (from Nsg): No SCD contraindication: low risk/ambulating Lines/Catheters IV Catheter Type: Garcia in Place: No Assessment/Plan Hospital Course Subjective no acute issues Objective Physical exam General: Patient is laying in bed and answers questions appropriately Mentation: Patient is alert and oriented 4, Head: Normocephalic atraumatic Eyes: EOMI, pupils reactive to light Neck: Supple, nontender, midline Respiratory: Coarse to auscultation bilaterally Cardiovascular: regular rate, no obvious murmurs Gastrointestinal: non-tender to palpation, bowel sounds heard. Neurological: Moves all extremities spontaneously Skin: No new skin lesions Assessment/Plan 1. 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 BITA performed with thickening/densities on tricuspid valve. Unable to rule out vegetation. - ID on board and appreciate recommendations. Will treat for endocarditis in setting of MRSA bacteremia and hx drug use 2. MRSA bacteremia- resolved - Repeat blood culture negative. Remains afebrile with nl WBC. - ID on board and appreciate recommendations. 3. Poorly controlled diabetes- improved - A1c noted - sugars remain controlled - Endocrinology consultation appreciated. Continue on current insulin and glimepiride. 4. Extensive bilateral multilobar pneumonia - Patient found with MRSA in sputum and CT scan showing cavitating lesions but improvement in bilateral infiltrate - Pulm on board and continue current treatment. Cocci studies. After review of recent CT scan concern for septic emboli. BITA performed - Repeat CT scan performed this am showing "Multifocal bilateral areas of pneumonia are again present and have diminished in overall size however there is interval development of multiple foci of lucencies within the areas of consolidation suggestive for bronchiectasis or developing small cavitary lesions." - ID recommendations appreciated 5. Homelessness - SW on board 6. History of meth abuse - Patient states last use was 2 weeks prior to admission. Counseled on cessation. 7. Tobacco use - Cessation advised. 8. Iron Deficient anemia. - Continue oral iron. - H&H stable. 9. Mild asthma. - Currently stable Constipation -Encourage use of laxatives as needed 10. Disposition - Medically stable for discharge once accepted to [facility] HAYDEE RAYO Jul 14, 2018 13:18
[2018-07-14 14:12] VITALS: BP 114/76; PULSE 101; RESP 16
--- NOTE | 2018-07-14 14:45 | CONS ---
Assessment/Plan Assessment/Plan Hospital Course (Demo Recall) All noted, no changes AFB smears negative 3 sets, cocci neg Microbiology: Blood culture on June 08 grew MRSA, repeat blood cultures negative, sputum culture on June 16 grew Talia albicans and MRSA. Serology for HIV negative Antimicrobials: Rifampin Vanco Physical examination: Well-developed middle-aged woman who is alert in no distress. Head atraumatic normocephalic sclera nonicteric. Neck is supple chest rise symmetrical breath sounds diminished bases. Heart S1-S2. Abdomen soft bowel sounds present. Extremities without cyanosis. Assessment: 1. S/p sepsis 2. 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 Necrotizing MRSA pneumonia with areas of cavitation per CT ?septic emboli 4. Homelessness 5. Poorly controlled diabetes 6. Meth amphetamine abuse Plan: Remains stable, pending discharge arrangements on IV Vanco last dose August 05 Consultation Date/Type/Reason Admit Date/Time Jun 08, 2018 at 23:53 Initial Consult Date Type of Consult id Requesting Provider: HAYDEE RAYO Date/Time of Note DATE: 07/14/18 TIME: 14:45 Exam/Review of Systems Exam Vitals Vital Signs Date Temp Pulse Resp B/P (MAP) Pulse Ox O2 O2 Flow FiO2 Time Delivery Rate 07/14/18 97.3 101 16 114/76 97 Room Air 14:12 (89) 07/12/18 09:05 Intake and Output 07/13/18 07/13/18 07/14/18 1515:00 23:00 07:00 IntakeIntake Total 900 ml 250 ml BalanceBalance 900 ml 250 ml Results Result Diagram: 07/11/18 0805 07/13/18 0618 Results 24hrs Laboratory Tests Test 07/13/18 17:42 07/13/18 19:21 07/13/18 20:30 07/14/18 02:12 Bedside Glucose 129 186 81 Vancomycin Level 14.1 Trough Test 07/14/18 07:56 07/14/18 11:59 Bedside Glucose 107 99 Medications Medication Current Medications Diagnostic Test (Pha) (Accu-Chek) 1 ea 02 XX Last administered on 07/05/18at 01:50; Admin Dose 1 EA; Start 06/10/18 at 02:00 Insulin Aspart (Novolog Insulin Pen) NOVOLOG *MILD* ALGORITHM WITH MEALS BEDTIME SC Last administered on 07/13/18at 20:39; Admin Dose 1 UNIT; Start 06/09/18 at 18:00 Miscellaneous Information 1 ea NOTE XX ; Start 06/09/18 at 14:30 Glucose (Glutose) 15 gm Q15M PRN PO DECREASED GLUCOSE; Start 06/09/18 at 14:30 Glucose (Glutose) 22.5 gm Q15M PRN PO DECREASED GLUCOSE; Start 06/09/18 at 14:30 Dextrose (D50w Syringe) 25 ml Q15M PRN IV DECREASED GLUCOSE Last administered on 06/29/18at 12:11; Admin Dose 25 ML; Start 06/09/18 at 14:30 Dextrose (D50w Syringe) 50 ml Q15M PRN IV DECREASED GLUCOSE; Start 06/09/18 at 14:30 Glucagon (Glucagen) 1 mg Q15M PRN IM DECREASED GLUCOSE; Start 06/09/18 at 14:30 Glucose (Glutose) 15 gm Q15M PRN BUCCAL DECREASED GLUCOSE; Start 06/09/18 at 14:30 Ferrous Sulfate (Ferrous Sulfate (Ec)) 325 mg DAILY PO Last administered on 07/14/18 08:16; Admin Dose 325 MG; Start 06/13/18 at 10:30; Stop 08/12/18 at 10:29 Levalbuterol (Xopenex Neb) 1.25 mg Q6H RESP THERAPY PRN HHN sob/wheezing Last administered on 07/12/18 09:05; Admin Dose 1.25 MG; Start 06/14/18 at 09:00 Guaifenesin/ Dextromethorphan (Mucinex Dm) 1 tab BID PO Last administered on 07/14/18 08:16; Admin Dose 1 TAB; Start 06/14/18 at 09:30 Metformin HCl (Glucophage) 1,000 mg BID WITH MEALS PO Last administered on 07/14/18 07:57; Admin Dose 1,000 MG; Start 06/16/18 at 18:00 Ascorbic Acid (Vitamin C) 500 mg DAILY PO Last administered on 07/14/18 08:16; Admin Dose 500 MG; Start 06/17/18 at 09:00; Stop 08/16/18 at 08:59 Guaifenesin/ Codeine Phosphate (Robitussin Ac Liquid Cup) 5 ml Q4H PRN PO cough Last administered on 06/18/18 20:25; Admin Dose 5 ML; Start 06/18/18 at 12:00 Rifampin (Rifampin) 600 mg DAILY PO Last administered on 07/14/18 08:45; Admin Dose 600 MG; Start 06/20/18 at 14:30 Glimepiride (Amaryl) 4 mg QHS PO Last administered on 07/13/18 20:31; Admin Dose 4 MG; Start 06/25/18 at 21:00 Glimepiride (Amaryl) 2 mg AC BREAKFAST PO Last administered on 07/14/18 07:57; Admin Dose 2 MG; Start 06/26/18 at 07:00 Vancomycin HCl (Vanco Iv Per Pharmacy) VANCOMYCIN PER PHARMACY PER PROTOCOL XX ; Start 06/28/18 at 16:00 IV Flush (NS 10 ml) 10 ml PRN PRN IV FLUSH LINE; Start 06/28/18 at 18:30 Magnesium Citrate (Citroma) 300 ml DAILY PRN PO constipation Last administered on 07/10/18at 15:32; Admin Dose 300 ML; Start 06/29/18 at 15:00 Zolpidem Tartrate (Ambien) 10 mg HS PRN PO insomnia Last administered on 07/11/18at 21:46; Admin Dose 10 MG; Start 06/29/18 at 17:00 Multi-Ingredient Ointment (Eucerin Cream) 1 applic BID TOP Last administered on 07/14/18at 08:17; Admin Dose 1 APPLIC; Start 07/01/18 at 21:30 Insulin Human NPH (Humulin N) 12 unit DAILY@20 SC Last administered on 07/13/18 at 20:39; Admin Dose 12 UNIT; Start 07/02/18 at 20:00 Alteplase, Recombinant (Cathflo (Activase)) 2 mg MAY REPEAT X1 PRN CATHETER IF CATHETER REMAINS OCCULUDED Last administered on 07/11/18at 23:23; Admin Dose 2 MG; Start 07/05/18 at 18:00 IV Flush (NS 10 ml) 10 ml PRN PRN IV FLUSH LINE; Start 07/07/18 at 19:00 Docusate Sodium (Colace) 100 mg DAILY PO Last administered on 07/14/18 08:16; Admin Dose 100 MG; Start 07/11/18 at 09:30 Ondansetron HCl (Zofran Inj) 4 mg Q6H PRN IV NAUSEA AND/OR VOMITING Last administered on 07/14/18at 08:44; Admin Dose 4 MG; Start 07/11/18 at 09:30 Pantoprazole (Protonix Tab) 40 mg DAILY@06 PO Last administered on 07/14/18at 05:28; Admin Dose 40 MG; Start 07/12/18 at 06:00 Bisacodyl (Dulcolax) 10 mg DAILY PRN PO CONSTIPATION; Start 07/11/18 at 09:30 Acetaminophen (Tylenol Tab) 650 mg Q6H PRN PO MILD PAIN(1-3)OR ELEVATED TEMP; Start 07/11/18 at 09:30 Vancomycin HCl 1.25 gm/Sodium Chloride 250 ml @ 83.333 mls/ hr Q8H IVPB Last administered on 07/14/18at 11:56; Admin Dose 83.333 MLS/HR; Start 07/12/18 at 20:00 JOSE GOVEA NP Jul 14, 2018 14:45
[2018-07-14 20:32] VITALS: BP 126/78; PULSE 116; RESP 18
[2018-07-14] MEDS: GLIMEPIRIDE 4 MG TAB PO SCH (20:42)
[2018-07-14] MEDS: NPH, HUMAN INSULIN ISOPHANE 3ML VIAL SC SCH (20:43)
--- NOTE | 2018-07-14 21:03 | CONS ---
Consult Date/Type/Reason Admit Date/Time Jun 08, 2018 at 23:53 Initial Consult Date 06/26/18 Type of Consultation: cv Requesting Provider: HAYDEE RAYO Date/Time of Note DATE: 07/14/18 TIME: 21:01 Subjective Cardiology follow-up progress Subjective: Discussed with the staff . no report of chest pain Patient WITH LESS cough and shortness of breath today Objective: General: no acute distress HEENT: NC/AT. pupils are equal. round. NECK: NO JVD. no stridor. CV: RRR. systolic murmur; no gallop or rubs. PULM: no wheezing . GI: SOFT, NT, ND, no rebound or guarding Extremity: No significant LE edema. no clubbing. neuro: awake and alert Psych: calm and pleasant rectal: deferred Derm: Multiple tattoos Repeat echocardiogram on 06/26/2018 shows: Normal left ventricular systolic function. Normal left ventricular cavity size. Left ventricular wall thickness upper limits of normal. Ejection fraction is visually estimated at 60 %. Tissue Doppler/Mitral Doppler indices are consistent with impaired relaxation (Stage I diastolic dysfunction). Normal right ventricular size. Normal right ventricular systolic function. The left atrium is normal in size. The right atrium is normal in size. No significant valvular stenosis or regurgitation seen. Normal pericardium with no significant pericardial effusion. BITA 06/28/18 Normal LV size and systolic function with trace MR and TR Echo density/thickening of the tricuspid valve is noted. Vegetation cannot be ruled out Objective Vitals Vital Signs Date Temp Pulse Resp B/P (MAP) Pulse Ox O2 O2 Flow FiO2 Time Delivery Rate 07/14/18 98.3 116 18 126/78 96 Room Air 20:32 (94) 07/12/18 21 09:05 Intake and Output 07/13/18 07/13/18 07/14/18 1515:00 23:00 07:00 IntakeIntake Total 900 ml 250 ml BalanceBalance 900 ml 250 ml Results/Medications Result Diagram: 07/11/18 0805 07/13/18 0618 Results 24 hrs Laboratory Tests Test 07/14/18 02:12 07/14/18 07:56 07/14/18 11:59 07/14/18 17:35 Bedside Glucose 81 107 99 261 H Test 07/14/18 20:40 Bedside Glucose 239 H Medications Current Medications Diagnostic Test (Pha) (Accu-Chek) 1 ea 02 XX Last administered on 07/05/18at 01:50; Admin Dose 1 EA; Start 06/10/18 at 02:00 Insulin Aspart (Novolog Insulin Pen) NOVOLOG *MILD* ALGORITHM WITH MEALS BEDTIME SC Last administered on 07/14/18at 20:43; Admin Dose 2 UNIT; Start 06/09/18 at 18:00 Miscellaneous Information 1 ea NOTE XX ; Start 06/09/18 at 14:30 Glucose (Glutose) 15 gm Q15M PRN PO DECREASED GLUCOSE; Start 06/09/18 at 14:30 Glucose (Glutose) 22.5 gm Q15M PRN PO DECREASED GLUCOSE; Start 06/09/18 at 14:30 Dextrose (D50w Syringe) 25 ml Q15M PRN IV DECREASED GLUCOSE Last administered on 06/29/18at 12:11; Admin Dose 25 ML; Start 06/09/18 at 14:30 Dextrose (D50w Syringe) 50 ml Q15M PRN IV DECREASED GLUCOSE; Start 06/09/18 at 14:30 Glucagon (Glucagen) 1 mg Q15M PRN IM DECREASED GLUCOSE; Start 06/09/18 at 14:30 Glucose (Glutose) 15 gm Q15M PRN BUCCAL DECREASED GLUCOSE; Start 06/09/18 at 14:30 Ferrous Sulfate (Ferrous Sulfate (Ec)) 325 mg DAILY PO Last administered on 07/14/18at 08:16; Admin Dose 325 MG; Start 06/13/18 at 10:30; Stop 08/12/18 at 10:29 Levalbuterol (Xopenex Neb) 1.25 mg Q6H RESP THERAPY PRN HHN sob/wheezing Last administered on 07/12/18at 09:05; Admin Dose 1.25 MG; Start 06/14/18 at 09:00 Guaifenesin/ Dextromethorphan (Mucinex Dm) 1 tab BID PO Last administered on 07/14/18at 20:42; Admin Dose 1 TAB; Start 06/14/18 at 09:30 Metformin HCl (Glucophage) 1,000 mg BID WITH MEALS PO Last administered on 07/14/18at 17:37; Admin Dose 1,000 MG; Start 06/16/18 at 18:00 Ascorbic Acid (Vitamin C) 500 mg DAILY PO Last administered on 07/14/18 08:16; Admin Dose 500 MG; Start 06/17/18 at 09:00; Stop 08/16/18 at 08:59 Guaifenesin/ Codeine Phosphate (Robitussin Ac Liquid Cup) 5 ml Q4H PRN PO cough Last administered on 06/18/18 20:25; Admin Dose 5 ML; Start 06/18/18 at 12:00 Rifampin (Rifampin) 600 mg DAILY PO Last administered on 07/14/18 08:45; Admin Dose 600 MG; Start 06/20/18 at 14:30 Glimepiride (Amaryl) 4 mg QHS PO Last administered on 07/14/18 20:42; Admin Dose 4 MG; Start 06/25/18 at 21:00 Glimepiride (Amaryl) 2 mg AC BREAKFAST PO Last administered on 07/14/18 07:57; Admin Dose 2 MG; Start 06/26/18 at 07:00 Vancomycin HCl (Vanco Iv Per Pharmacy) VANCOMYCIN PER PHARMACY PER PROTOCOL XX ; Start 06/28/18 at 16:00 IV Flush (NS 10 ml) 10 ml PRN PRN IV FLUSH LINE; Start 06/28/18 at 18:30 Magnesium Citrate (Citroma) 300 ml DAILY PRN PO constipation Last administered on 07/10/18 15:32; Admin Dose 300 ML; Start 06/29/18 at 15:00 Zolpidem Tartrate (Ambien) 10 mg HS PRN PO insomnia Last administered on 9at 21:46; Admin Dose 10 MG; Start 06/29/18 at 17:00 Multi-Ingredient Ointment (Eucerin Cream) 1 applic BID TOP Last administered on 07/14/18 20:46; Admin Dose 1 APPLIC; Start 07/01/18 at 21:30 Insulin Human NPH (Humulin N) 12 unit DAILY@20 SC Last administered on 07/14/18 20:43; Admin Dose 12 UNIT; Start 07/02/18 at 20:00 Alteplase, Recombinant (Cathflo (Activase)) 2 mg MAY REPEAT X1 PRN CATHETER IF CATHETER REMAINS OCCULUDED Last administered on 07/11/18 23:23; Admin Dose 2 MG; Start 07/05/18 at 18:00 IV Flush (NS 10 ml) 10 ml PRN PRN IV FLUSH LINE; Start 07/07/18 at 19:00 Docusate Sodium (Colace) 100 mg DAILY PO Last administered on 07/14/18at 08:16; Admin Dose 100 MG; Start 07/11/18 at 09:30 Ondansetron HCl (Zofran Inj) 4 mg Q6H PRN IV NAUSEA AND/OR VOMITING Last administered on 07/14/18at 08:44; Admin Dose 4 MG; Start 07/11/18 at 09:30 Pantoprazole (Protonix Tab) 40 mg DAILY@06 PO Last administered on 07/14/18at 05:28; Admin Dose 40 MG; Start 07/12/18 at 06:00 Bisacodyl (Dulcolax) 10 mg DAILY PRN PO CONSTIPATION; Start 07/11/18 at 09:30 Acetaminophen (Tylenol Tab) 650 mg Q6H PRN PO MILD PAIN(1-3)OR ELEVATED TEMP; Start 07/11/18 at 09:30 Vancomycin HCl 1.25 gm/Sodium Chloride 250 ml @ 83.333 mls/ hr Q8H IVPB Last administered on 07/14/18at 20:42; Admin Dose 83.333 MLS/HR; Start 07/12/18 at 20:00 Assessment/Plan Hospital Course (Demo Recall) 1. MRSA bacteremia, with a possible vegetation on tricuspid valve on the transesophageal echocardiogram 2. Pneumonia 3. Status post DKA 4. Diabetes 5. Anemia 6. Homelessness 7. sinus tachy: due to above 8/ COPD asthma Recommendations: Diabetic management as per internal medicine and endocrine network relations consultant. Antibiotic management as per infectious disease recommendations. replace lytes including Mg prn Pulmonary care as per internal medicine thank you for this referral. We will continue to follow along with you as needed ABDI JAY MD [facility] ABDI JAY MD Jul 14, 2018 21:03
[2018-07-15] MEDS: ACCU-CHEK XX SCH (01:19)
[2018-07-15 02:00] VITALS: BP 109/78; PULSE 104; RESP 18
[2018-07-15] MEDS: VANCOMYCIN HCL 1.25 GM in SOD CHLORIDE 0.9% 250 ML IVPB SCH ×3 (04:06→20:29)
[2018-07-15] MEDS: PANTOPRAZOLE (EC) 40 MG TAB PO SCH (05:43)
[2018-07-15 07:45] VITALS: BP 130/76; PULSE 95; RESP 18
[2018-07-15] MEDS: GUAIFENESIN/DM (SR) TAB PO SCH ×2 (08:38→20:25)
[2018-07-15] MEDS: GLIMEPIRIDE 2 MG TAB PO SCH (08:38)
[2018-07-15] MEDS: metFORMIN 500 MG TAB PO SCH ×2 (08:38→17:39)
[2018-07-15] MEDS: FERROUS SULFATE (EC) 325 MG TAB PO SCH (08:38)
[2018-07-15] MEDS: RIFAMPIN 300 MG CAP PO SCH (08:39)
[2018-07-15] MEDS: ASCORBIC ACID 500 MG TAB PO SCH (08:39)
[2018-07-15] MEDS: DOCUSATE SODIUM 100 MG CAP PO SCH (08:39)
[2018-07-15] MEDS: INSULIN ASPART [NOVOLOG] 3 ML PEN SC SCH ×4 (08:41→20:37)
[2018-07-15] MEDS: ONDANSETRON 4 MG INJ IV PRN (08:46)
[2018-07-15] MEDS: EUCERIN 113 GM CR TOP SCH ×2 (08:54→20:37)
[2018-07-15] MEDS ORDERED: MAGNESIUM OXIDE 400 MG TAB PO ONE (12:00)
--- NOTE | 2018-07-15 13:23 | PN ---
Date/Time of Note Date/Time of Note DATE: 07/15/18 TIME: 13:23 Objective Vitals Vital Signs Date Temp Pulse Resp B/P (MAP) Pulse Ox O2 O2 Flow FiO2 Time Delivery Rate 07/15/18 98.3 95 18 130/76 97 Room Air 07:45 (94) 07/12/18 21 09:05 Intake and Output 07/14/18 07/14/18 07/15/18 1515:00 23:00 07:00 IntakeIntake Total 1140 ml 400 ml 250 ml BalanceBalance 1140 ml 400 ml 250 ml Results Result Diagram: 07/15/185 07/15/18434 Medications Medications Current Medications Diagnostic Test (Pha) (Accu-Chek) 1 ea 02 XX Last administered on 07/05/18at 01:50; Admin Dose 1 EA; Start 06/10/18 at 02:00 Insulin Aspart (Novolog Insulin Pen) NOVOLOG *MILD* ALGORITHM WITH MEALS BEDTIME SC Last administered on 07/15/18at 08:41; Admin Dose 4 UNIT; Start 06/09/18 at 18:00 Miscellaneous Information 1 ea NOTE XX ; Start 06/09/18 at 14:30 Glucose (Glutose) 15 gm Q15M PRN PO DECREASED GLUCOSE; Start 06/09/18 at 14:30 Glucose (Glutose) 22.5 gm Q15M PRN PO DECREASED GLUCOSE; Start 06/09/18 at 14:30 Dextrose (D50w Syringe) 25 ml Q15M PRN IV DECREASED GLUCOSE Last administered on 06/29/18at 12:11; Admin Dose 25 ML; Start 06/09/18 at 14:30 Dextrose (D50w Syringe) 50 ml Q15M PRN IV DECREASED GLUCOSE; Start 06/09/18 at 14:30 Glucagon (Glucagen) 1 mg Q15M PRN IM DECREASED GLUCOSE; Start 06/09/18 at 14:30 Glucose (Glutose) 15 gm Q15M PRN BUCCAL DECREASED GLUCOSE; Start 06/09/18 at 14:30 Ferrous Sulfate (Ferrous Sulfate (Ec)) 325 mg DAILY PO Last administered on 07/15/18at 08:38; Admin Dose 325 MG; Start 06/13/18 at 10:30; Stop 08/12/18 at 10:29 Levalbuterol (Xopenex Neb) 1.25 mg Q6H RESP THERAPY PRN HHN sob/wheezing Last administered on 07/12/18 09:05; Admin Dose 1.25 MG; Start 06/14/18 at 09:00 Guaifenesin/ Dextromethorphan (Mucinex Dm) 1 tab BID PO Last administered on 07/15/18 08:38; Admin Dose 1 TAB; Start 06/14/18 at 09:30 Metformin HCl (Glucophage) 1,000 mg BID WITH MEALS PO Last administered on 07/15/18 08:38; Admin Dose 1,000 MG; Start 06/16/18 at 18:00 Ascorbic Acid (Vitamin C) 500 mg DAILY PO Last administered on 07/15/18 08:39; Admin Dose 500 MG; Start 06/17/18 at 09:00; Stop 08/16/18 at 08:59 Guaifenesin/ Codeine Phosphate (Robitussin Ac Liquid Cup) 5 ml Q4H PRN PO cough Last administered on 06/18/18 20:25; Admin Dose 5 ML; Start 06/18/18 at 12:00 Rifampin (Rifampin) 600 mg DAILY PO Last administered on 07/15/18 08:39; Admin Dose 600 MG; Start 06/20/18 at 14:30 Glimepiride (Amaryl) 4 mg QHS PO Last administered on 07/14/18 20:42; Admin Dose 4 MG; Start 06/25/18 at 21:00 Glimepiride (Amaryl) 2 mg AC BREAKFAST PO Last administered on 07/15/18 08:38; Admin Dose 2 MG; Start 06/26/18 at 07:00 Vancomycin HCl (Vanco Iv Per Pharmacy) VANCOMYCIN PER PHARMACY PER PROTOCOL XX ; Start 06/28/18 at 16:00 IV Flush (NS 10 ml) 10 ml PRN PRN IV FLUSH LINE; Start 06/28/18 at 18:30 Magnesium Citrate (Citroma) 300 ml DAILY PRN PO constipation Last administered on 07/10/18 15:32; Admin Dose 300 ML; Start 06/29/18 at 15:00 Zolpidem Tartrate (Ambien) 10 mg HS PRN PO insomnia Last administered on 07/11/18 21:46; Admin Dose 10 MG; Start 06/29/18 at 17:00 Multi-Ingredient Ointment (Eucerin Cream) 1 applic BID TOP Last administered on 07/15/18 08:54; Admin Dose 1 APPLIC; Start 07/01/18 at 21:30 Insulin Human NPH (Humulin N) 12 unit DAILY@20 SC Last administered on 07/14/18 20:43; Admin Dose 12 UNIT; Start 07/02/18 at 20:00 Alteplase, Recombinant (Cathflo (Activase)) 2 mg MAY REPEAT X1 PRN CATHETER IF CATHETER REMAINS OCCULUDED Last administered on 07/11/18 23:23; Admin Dose 2 MG; Start 07/05/18 at 18:00 IV Flush (NS 10 ml) 10 ml PRN PRN IV FLUSH LINE; Start 07/07/18 at 19:00 Docusate Sodium (Colace) 100 mg DAILY PO Last administered on 07/15/18 08:39; Admin Dose 100 MG; Start 07/11/18 at 09:30 Ondansetron HCl (Zofran Inj) 4 mg Q6H PRN IV NAUSEA AND/OR VOMITING Last administered on 07/15/18at 08:46; Admin Dose 4 MG; Start 07/11/18 at 09:30 Pantoprazole (Protonix Tab) 40 mg DAILY@06 PO Last administered on 07/15/18 05:43; Admin Dose 40 MG; Start 07/12/18 at 06:00 Bisacodyl (Dulcolax) 10 mg DAILY PRN PO CONSTIPATION; Start 07/11/18 at 09:30 Acetaminophen (Tylenol Tab) 650 mg Q6H PRN PO MILD PAIN(1-3)OR ELEVATED TEMP; Start 07/11/18 at 09:30 Vancomycin HCl 1.25 gm/Sodium Chloride 250 ml @ 83.333 mls/ hr Q8H IVPB Last administered on 07/15/18at 12:05; Admin Dose 83.333 MLS/HR; Start 07/12/18 at 20:00 VTE Prophylaxis Risk score (from Nsg)>0 risk: 3 SCD applied (from Nsg): No SCD contraindication: other Lines/Catheters IV Catheter Type: Garcia in Place: No Assessment/Plan Hospital Course Subjective no acute issues Objective Physical exam General: Patient is laying in bed and answers questions appropriately Mentation: Patient is alert and oriented 4, Head: Normocephalic atraumatic Eyes: EOMI, pupils reactive to light Neck: Supple, nontender, midline Respiratory: Coarse to auscultation bilaterally Cardiovascular: regular rate, no obvious murmurs Gastrointestinal: non-tender to palpation, bowel sounds heard. Neurological: Moves all extremities spontaneously Skin: No new skin lesions Assessment/Plan 1. 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 BITA performed with thickening/densities on tricuspid valve. Unable to rule out vegetation. - ID on board and appreciate recommendations. Will treat for endocarditis in setting of MRSA bacteremia and hx drug use 2. MRSA bacteremia- resolved - Repeat blood culture negative. Remains afebrile with nl WBC. - ID on board and appreciate recommendations. 3. Poorly controlled diabetes- improved - A1c noted - sugars remain controlled - Endocrinology consultation appreciated. Continue on current insulin and glimepiride. 4. Extensive bilateral multilobar pneumonia - Patient found with MRSA in sputum and CT scan showing cavitating lesions but improvement in bilateral infiltrate - Pulm on board and continue current treatment. Cocci studies. After review of recent CT scan concern for septic emboli. BITA performed - Repeat CT scan performed this am showing "Multifocal bilateral areas of pneumonia are again present and have diminished in overall size however there is interval development of multiple foci of lucencies within the areas of consolidation suggestive for bronchiectasis or developing small cavitary lesions." - ID recommendations appreciated 5. Homelessness - SW on board 6. History of meth abuse - Patient states last use was 2 weeks prior to admission. Counseled on cessation. 7. Tobacco use - Cessation advised. 8. Iron Deficient anemia. - Continue oral iron. - H&H stable. 9. Mild asthma. - Currently stable Constipation -Encourage use of laxatives as needed 10. Disposition - Medically stable for discharge once accepted to SNF HAYDEE RAYO Jul 15, 2018 13:23
[2018-07-15 14:22] VITALS: BP 135/77; PULSE 106; RESP 18
--- NOTE | 2018-07-15 16:49 | CONS ---
Consult Date/Type/Reason Admit Date/Time Jun 08, 2018 at 23:53 Initial Consult Date 06/26/18 Type of Consultation: cv Requesting Provider: HAYDEE RAYO Date/Time of Note DATE: 07/15/18 TIME: 16:48 Subjective Cardiology follow-up progress Subjective: Discussed with the staff . no report of chest pain Breathing is okay now Objective: General: no acute distress HEENT: NC/AT. pupils are equal. round. NECK: NO JVD. no stridor. CV: RRR. systolic murmur; no gallop or rubs. PULM: no wheezing . GI: SOFT, NT, ND, no rebound or guarding Extremity: No significant LE edema. no clubbing. neuro: awake and alert Psych: calm and pleasant rectal: deferred Derm: Multiple tattoos Repeat echocardiogram on 06/26/2018 shows: Normal left ventricular systolic function. Normal left ventricular cavity size. Left ventricular wall thickness upper limits of normal. Ejection fraction is visually estimated at 60 %. Tissue Doppler/Mitral Doppler indices are consistent with impaired relaxation (Stage I diastolic dysfunction). Normal right ventricular size. Normal right ventricular systolic function. The left atrium is normal in size. The right atrium is normal in size. No significant valvular stenosis or regurgitation seen. Normal pericardium with no significant pericardial effusion. BITA 06/28/18 Normal LV size and systolic function with trace MR and TR Echo density/thickening of the tricuspid valve is noted. Vegetation cannot be ruled out Objective Vitals Vital Signs Date Temp Pulse Resp B/P (MAP) Pulse Ox O2 O2 Flow FiO2 Time Delivery Rate 07/15/18 98.2 106 18 135/77 95 Room Air 14:22 (96) 07/12/18 21 09:05 Intake and Output 07/14/18 07/14/18 07/15/18 1515:00 23:00 07:00 IntakeIntake Total 1140 ml 400 ml 250 ml BalanceBalance 1140 ml 400 ml 250 ml Results/Medications Result Diagram: 07/15/18 0435 07/15/18 0435 Results 24 hrs Laboratory Tests Test 07/14/18 17:35 07/14/18 20:40 07/15/18 02:23 07/15/18 04:35 Bedside Glucose 261 H 239 H 119 White Blood Count 6.9 Red Blood Count 3.98 L Hemoglobin 11.7 L Hematocrit 36.6 L Mean Corpuscular 92.0 Volume Mean Corpuscular 29.4 Hemoglobin Mean Corpuscular 32.0 Hemoglobin Concent Red Cell 17.5 H Distribution Width Platelet Count 259 Mean Platelet Volume 10.1 Immature 0.300 Granulocytes % Neutrophils % 48.7 Lymphocytes % 37.6 Monocytes % 5.8 Eosinophils % 6.6 Basophils % 1.0 Nucleated Red Blood 0.0 Cells % Immature 0.020 Granulocytes # Neutrophils # 3.4 Lymphocytes # 2.6 Monocytes # 0.4 Eosinophils # 0.5 Basophils # 0.1 Nucleated Red Blood 0.0 Cells # Sodium Level 140 Potassium Level 4.2 Chloride Level 108 Carbon Dioxide Level 23 Anion Gap 9 Blood Urea Nitrogen 17 Creatinine 0.35 L Est Glomerular > 60 Filtrat Rate mL/min Glucose Level 154 Calcium Level 9.0 Phosphorus Level 4.7 Magnesium Level 1.5 L Test 07/15/18 08:37 07/15/18 12:04 Bedside Glucose 279 H 93 Medications Current Medications Diagnostic Test (Pha) (Accu-Chek) 1 ea 02 XX Last administered on 07/05/18at 01:50; Admin Dose 1 EA; Start 06/10/18 at 02:00 Insulin Aspart (Novolog Insulin Pen) NOVOLOG *MILD* ALGORITHM WITH MEALS BED TIME SC Last administered on 07/15/18at 08:41; Admin Dose 4 UNIT; Start 06/09/18 at 18:00 Miscellaneous Information 1 ea NOTE XX ; Start 06/09/18 at 14:30 Glucose (Glutose) 15 gm Q15M PRN PO DECREASED GLUCOSE; Start 06/09/18 at 14:30 Glucose (Glutose) 22.5 gm Q15M PRN PO DECREASED GLUCOSE; Start 06/09/18 at 14:30 Dextrose (D50w Syringe) 25 ml Q15M PRN IV DECREASED GLUCOSE Last administered on 06/29/18at 12:11; Admin Dose 25 ML; Start 06/09/18 at 14:30 Dextrose (D50w Syringe) 50 ml Q15M PRN IV DECREASED GLUCOSE; Start 06/09/18 at 14:30 Glucagon (Glucagen) 1 mg Q15M PRN IM DECREASED GLUCOSE; Start 06/09/18 at 14:30 Glucose (Glutose) 15 gm Q15M PRN BUCCAL DECREASED GLUCOSE; Start 06/09/18 at 14:30 Ferrous Sulfate (Ferrous Sulfate (Ec)) 325 mg DAILY PO Last administered on 07/15/18 08:38; Admin Dose 325 MG; Start 06/13/18 at 10:30; Stop 08/12/18 at 10:29 Levalbuterol (Xopenex Neb) 1.25 mg Q6H RESP THERAPY PRN HHN sob/wheezing Last administered on 07/12/18 09:05; Admin Dose 1.25 MG; Start 06/14/18 at 09:00 Guaifenesin/ Dextromethorphan (Mucinex Dm) 1 tab BID PO Last administered on 07/15/18 08:38; Admin Dose 1 TAB; Start 06/14/18 at 09:30 Metformin HCl (Glucophage) 1,000 mg BID WITH MEALS PO Last administered on 07/15/18 08:38; Admin Dose 1,000 MG; Start 06/16/18 at 18:00 Ascorbic Acid (Vitamin C) 500 mg DAILY PO Last administered on 07/15/18 08:39; Admin Dose 500 MG; Start 06/17/18 at 09:00; Stop 08/16/18 at 08:59 Guaifenesin/ Codeine Phosphate (Robitussin Ac Liquid Cup) 5 ml Q4H PRN PO cough Last administered on 06/18/18 20:25; Admin Dose 5 ML; Start 06/18/18 at 12:00 Rifampin (Rifampin) 600 mg DAILY PO Last administered on 07/15/18 08:39; Admin Dose 600 MG; Start 06/20/18 at 14:30 Glimepiride (Amaryl) 4 mg QHS PO Last administered on 07/14/18 20:42; Admin Dose 4 MG; Start 06/25/18 at 21:00 Glimepiride (Amaryl) 2 mg AC BREAKFAST PO Last administered on 07/15/18 08:38; Admin Dose 2 MG; Start 06/26/18 at 07:00 Vancomycin HCl (Vanco Iv Per Pharmacy) VANCOMYCIN PER PHARMACY PER PROTOCOL XX ; Start 06/28/18 at 16:00 IV Flush (NS 10 ml) 10 ml PRN PRN IV FLUSH LINE; Start 06/28/18 at 18:30 Magnesium Citrate (Citroma) 300 ml DAILY PRN PO constipation Last administered on 07/10/18 15:32; Admin Dose 300 ML; Start 06/29/18 at 15:00 Zolpidem Tartrate (Ambien) 10 mg HS PRN PO insomnia Last administered on 07/11/18 21:46; Admin Dose 10 MG; Start 06/29/18 at 17:00 Multi-Ingredient Ointment (Eucerin Cream) 1 applic BID TOP Last administered on 07/15/18 08:54; Admin Dose 1 APPLIC; Start 07/01/18 at 21:30 Insulin Human NPH (Humulin N) 12 unit DAILY@20 SC Last administered on 07/14/18 20:43; Admin Dose 12 UNIT; Start 07/02/18 at 20:00 Alteplase, Recombinant (Cathflo (Activase)) 2 mg MAY REPEAT X1 PRN CATHETER IF CATHETER REMAINS OCCULUDED Last administered on 07/11/18 23:23; Admin Dose 2 MG; Start 07/05/18 at 18:00 IV Flush (NS 10 ml) 10 ml PRN PRN IV FLUSH LINE; Start 07/07/18 at 19:00 Docusate Sodium (Colace) 100 mg DAILY PO Last administered on 07/15/18 08:39; Admin Dose 100 MG; Start 07/11/18 at 09:30 Ondansetron HCl (Zofran Inj) 4 mg Q6H PRN IV NAUSEA AND/OR VOMITING Last administered on 07/15/18 08:46; Admin Dose 4 MG; Start 07/11/18 at 09:30 Pantoprazole (Protonix Tab) 40 mg DAILY@06 PO Last administered on 07/15/18 05:43; Admin Dose 40 MG; Start 07/12/18 at 06:00 Bisacodyl (Dulcolax) 10 mg DAILY PRN PO CONSTIPATION; Start 07/11/18 at 09:30 Acetaminophen (Tylenol Tab) 650 mg Q6H PRN PO MILD PAIN(1-3)OR ELEVATED TEMP; Start 07/11/18 at 09:30 Vancomycin HCl 1.25 gm/Sodium Chloride 250 ml @ 83.333 mls/ hr Q8H IVPB Last administered on 07/15/18 12:05; Admin Dose 83.333 MLS/HR; Start 07/12/18 at 20:00 Miscellaneous Information (*Rx Drug Level Order Reminder*) VANCOMYCIN TROUGH AT 0300 0300 ONCE XX ; Start 07/16/18 at 03:00; Stop 07/16/18 at 03:01 Assessment/Plan Hospital Course (Demo Recall) 1. MRSA bacteremia, with a possible vegetation on tricuspid valve on the transesophageal echocardiogram 2. Pneumonia 3. Status post DKA 4. Diabetes 5. Anemia 6. Homelessness 7. sinus tachy: due to above 8/ COPD asthma Recommendations: Diabetic management as per internal medicine and endocrine enrollment consultant. Antibiotic management as per infectious disease recommendations. replace lytes including Mg prn Pulmonary care as per internal medicine thank you for this referral. We will continue to follow along with you as needed ABDI JAY MD [facility] ABDI JAY MD Jul 15, 2018 16:49
[2018-07-15] MEDS: NPH, HUMAN INSULIN ISOPHANE 3ML VIAL SC SCH (20:23)
[2018-07-15] MEDS: GLIMEPIRIDE 4 MG TAB PO SCH (20:25)
[2018-07-15 20:31] VITALS: BP 110/80; PULSE 108; RESP 18
[2018-07-16 02:00] VITALS: BP 114/79; PULSE 90; RESP 18
[2018-07-16] MEDS: ACCU-CHEK XX SCH (02:00)
[2018-07-16] MEDS: PANTOPRAZOLE (EC) 40 MG TAB PO SCH (06:29)
[2018-07-16] MEDS: VANCOMYCIN HCL 1.25 GM in SOD CHLORIDE 0.9% 250 ML IVPB SCH ×3 (06:29→20:50)
[2018-07-16] MEDS: metFORMIN 500 MG TAB PO SCH ×2 (08:00→17:37)
[2018-07-16] MEDS: GLIMEPIRIDE 2 MG TAB PO SCH (08:01)
[2018-07-16] MEDS: INSULIN ASPART [NOVOLOG] 3 ML PEN SC SCH ×4 (08:01→20:50)
[2018-07-16 08:32] VITALS: BP 112/84; PULSE 119; RESP 18
[2018-07-16] MEDS: RIFAMPIN 300 MG CAP PO SCH (09:42)
[2018-07-16] MEDS: DOCUSATE SODIUM 100 MG CAP PO SCH (09:43)
[2018-07-16] MEDS: ASCORBIC ACID 500 MG TAB PO SCH (09:43)
[2018-07-16] MEDS: GUAIFENESIN/DM (SR) TAB PO SCH ×2 (09:43→20:50)
[2018-07-16] MEDS: FERROUS SULFATE (EC) 325 MG TAB PO SCH (09:43)
[2018-07-16] MEDS: ONDANSETRON 4 MG INJ IV PRN (09:43)
[2018-07-16] MEDS: EUCERIN 113 GM CR TOP SCH ×2 (09:47→20:51)
--- NOTE | 2018-07-16 12:10 | CONS ---
Consult Date/Type/Reason Admit Date/Time Jun 08, 2018 at 23:53 Initial Consult Date 06/26/18 Type of Consultation: cv Requesting Provider: HAYDEE RAYO Date/Time of Note DATE: 07/16/18 TIME: 12:10 Subjective Cardiology follow-up progress Subjective: Discussed with the staff . no report of chest pain Breathing is okay now and wants to go home Objective: General: no acute distress HEENT: NC/AT. pupils are equal. round. NECK: NO JVD. no stridor. CV: RRR. systolic murmur; no gallop or rubs. PULM: no wheezing . GI: SOFT, NT, ND, no rebound or guarding Extremity: No significant LE edema. no clubbing. neuro: awake and alert Psych: calm and pleasant rectal: deferred Derm: Multiple tattoos Repeat echocardiogram on 06/26/2018 shows: Normal left ventricular systolic function. Normal left ventricular cavity size. Left ventricular wall thickness upper limits of normal. Ejection fraction is visually estimated at 60 %. Tissue Doppler/Mitral Doppler indices are consistent with impaired relaxation (Stage I diastolic dysfunction). Normal right ventricular size. Normal right ventricular systolic function. The left atrium is normal in size. The right atrium is normal in size. No significant valvular stenosis or regurgitation seen. Normal pericardium with no significant pericardial effusion. BITA 06/28/18 Normal LV size and systolic function with trace MR and TR Echo density/thickening of the tricuspid valve is noted. Vegetation cannot be ruled out Objective Vitals Vital Signs Date Temp Pulse Resp B/P (MAP) Pulse Ox O2 O2 Flow FiO2 Time Delivery Rate 07/16/18 98.4 119 18 112/84 98 Room Air 08:32 (93) 07/12/18 21 09:05 Intake and Output 07/15/18 07/15/18 07/16/18 1515:00 23:00 07:00 IntakeIntake Total 1050 ml 550 ml 650 ml BalanceBalance 1050 ml 550 ml 650 ml Results/Medications Result Diagram: 07/15/18 0435 07/15/18 0435 Results 24 hrs Laboratory Tests Test 07/15/18 17:38 07/15/18 20:15 07/16/18 03:20 07/16/18 07:59 Bedside Glucose 222 H 127 183 Vancomycin Level 16.8 Trough Medications Current Medications Diagnostic Test (Pha) (Accu-Chek) 1 ea 02 XX Last administered on 07/05/18at 01:50; Admin Dose 1 EA; Start 06/10/18 at 02:00 Insulin Aspart (Novolog Insulin Pen) NOVOLOG *MILD* ALGORITHM WITH MEALS BEDTIME SC Last administered on 07/16/18at 08:01; Admin Dose 2 UNIT; Start 06/09/18 at 18:00 Miscellaneous Information 1 ea NOTE XX ; Start 06/09/18 at 14:30 Glucose (Glutose) 15 gm Q15M PRN PO DECREASED GLUCOSE; Start 06/09/18 at 14:30 Glucose (Glutose) 22.5 gm Q15M PRN PO DECREASED GLUCOSE; Start 06/09/18 at 14:30 Dextrose (D50w Syringe) 25 ml Q15M PRN IV DECREASED GLUCOSE Last administered on 06/29/18at 12:11; Admin Dose 25 ML; Start 06/09/18 at 14:30 Dextrose (D50w Syringe) 50 ml Q15M PRN IV DECREASED GLUCOSE; Start 06/09/18 at 14:30 Glucagon (Glucagen) 1 mg Q15M PRN IM DECREASED GLUCOSE; Start 06/09/18 at 14:30 Glucose (Glutose) 15 gm Q15M PRN BUCCAL DECREASED GLUCOSE; Start 06/09/18 at 14:30 Ferrous Sulfate (Ferrous Sulfate (Ec)) 325 mg DAILY PO Last administered on 07/16/18 09:43; Admin Dose 325 MG; Start 06/13/18 at 10:30; Stop 08/12/18 at 10:29 Levalbuterol (Xopenex Neb) 1.25 mg Q6H RESP THERAPY PRN HHN sob/wheezing Last administered on 07/12/18at 09:05; Admin Dose 1.25 MG; Start 06/14/18 at 09:00 Guaifenesin/ Dextromethorphan (Mucinex Dm) 1 tab BID PO Last administered on 07/16/18 09:43; Admin Dose 1 TAB; Start 06/14/18 at 09:30 Metformin HCl (Glucophage) 1,000 mg BID WITH MEALS PO Last administered on 07/16/18at 08:00; Admin Dose 1,000 MG; Start 06/16/18 at 18:00 Ascorbic Acid (Vitamin C) 500 mg DAILY PO Last administered on 07/16/18 09:43; Admin Dose 500 MG; Start 06/17/18 at 09:00; Stop 08/16/18 at 08:59 Guaifenesin/ Codeine Phosphate (Robitussin Ac Liquid Cup) 5 ml Q4H PRN PO cough Last administered on 06/18/18 20:25; Admin Dose 5 ML; Start 06/18/18 at 12:00 Rifampin (Rifampin) 600 mg DAILY PO Last administered on 07/16/18 09:42; Admin Dose 600 MG; Start 06/20/18 at 14:30 Glimepiride (Amaryl) 4 mg QHS PO Last administered on 07/15/18 20:25; Admin Dose 4 MG; Start 06/25/18 at 21:00 Glimepiride (Amaryl) 2 mg AC BREAKFAST PO Last administered on 07/16/18 08:01; Admin Dose 2 MG; Start 06/26/18 at 07:00 Vancomycin HCl (Vanco Iv Per Pharmacy) VANCOMYCIN PER PHARMACY PER PROTOCOL XX ; Start 06/28/18 at 16:00 IV Flush (NS 10 ml) 10 ml PRN PRN IV FLUSH LINE; Start 06/28/18 at 18:30 Magnesium Citrate (Citroma) 300 ml DAILY PRN PO constipation Last administered on 07/10/18 15:32; Admin Dose 300 ML; Start 06/29/18 at 15:00 Zolpidem Tartrate (Ambien) 10 mg HS PRN PO insomnia Last administered on 07/11/18 21:46; Admin Dose 10 MG; Start 06/29/18 at 17:00 Multi-Ingredient Ointment (Eucerin Cream) 1 applic BID TOP Last administered on 07/16/18 09:47; Admin Dose 1 APPLIC; Start 07/01/18 at 21:30 Insulin Human NPH (Humulin N) 12 unit DAILY@20 SC Last administered on 07/15/18 20:23; Admin Dose 12 UNIT; Start 07/02/18 at 20:00 Alteplase, Recombinant (Cathflo (Activase)) 2 mg MAY REPEAT X1 PRN CATHETER IF CATHETER REMAINS OCCULUDED Last administered on 07/11/18 23:23; Admin Dose 2 MG; Start 07/05/18 at 18:00 IV Flush (NS 10 ml) 10 ml PRN PRN IV FLUSH LINE; Start 07/07/18 at 19:00 Docusate Sodium (Colace) 100 mg DAILY PO Last administered on 07/16/18 09:43; Admin Dose 100 MG; Start 07/11/18 at 09:30 Ondansetron HCl (Zofran Inj) 4 mg Q6H PRN IV NAUSEA AND/OR VOMITING Last administered on 07/16/18 09:43; Admin Dose 4 MG; Start 07/11/18 at 09:30 Pantoprazole (Protonix Tab) 40 mg DAILY@06 PO Last administered on 07/16/18 06:29; Admin Dose 40 MG; Start 07/12/18 at 06:00 Bisacodyl (Dulcolax) 10 mg DAILY PRN PO CONSTIPATION; Start 07/11/18 at 09:30 Acetaminophen (Tylenol Tab) 650 mg Q6H PRN PO MILD PAIN(1-3)OR ELEVATED TEMP; Start 07/11/18 at 09:30 Vancomycin HCl 1.25 gm/Sodium Chloride 250 ml @ 83.333 mls/ hr Q8H IVPB Last administered on 07/16/18 06:29; Admin Dose 83.333 MLS/HR; Start 07/12/18 at 20:00 Assessment/Plan Hospital Course (Demo Recall) 1. MRSA bacteremia, with a possible vegetation on tricuspid valve on the transesophageal echocardiogram 2. Pneumonia 3. Status post DKA 4. Diabetes 5. Anemia 6. Homelessness 7. sinus tachy: due to above 8/ COPD asthma Recommendations: Diabetic management as per internal medicine and endocrine retirement sales consultant. Antibiotic management as per infectious disease recommendations. replace lytes including Mg prn Pulmonary care as per internal medicine thank you for this referral. We will continue to follow along with you as needed ABDI JAY MD [facility] ABDI JAY MD Jul 16, 2018 12:10
--- NOTE | 2018-07-16 12:36 | PN ---
Date/Time of Note Date/Time of Note DATE: 07/16/18 TIME: 12:36 Objective Vitals Vital Signs Date Temp Pulse Resp B/P (MAP) Pulse Ox O2 O2 Flow FiO2 Time Delivery Rate 07/16/18 98.4 119 18 112/84 98 Room Air 08:32 (93) 07/12/18 21 09:05 Intake and Output 07/15/18 07/15/18 07/16/18 1515:00 23:00 07:00 IntakeIntake Total 1050 ml 550 ml 650 ml BalanceBalance 1050 ml 550 ml 650 ml Results Result Diagram: 07/15/185 07/15/18434 Medications Medications Current Medications Diagnostic Test (Pha) (Accu-Chek) 1 ea 02 XX Last administered on 07/05/18at 01:50; Admin Dose 1 EA; Start 06/10/18 at 02:00 Insulin Aspart (Novolog Insulin Pen) NOVOLOG *MILD* ALGORITHM WITH MEALS BEDTIME SC Last administered on 07/16/18at 12:30; Admin Dose 2 UNIT; Start 06/09/18 at 18:00 Miscellaneous Information 1 ea NOTE XX ; Start 06/09/18 at 14:30 Glucose (Glutose) 15 gm Q15M PRN PO DECREASED GLUCOSE; Start 06/09/18 at 14:30 Glucose (Glutose) 22.5 gm Q15M PRN PO DECREASED GLUCOSE; Start 06/09/18 at 14:30 Dextrose (D50w Syringe) 25 ml Q15M PRN IV DECREASED GLUCOSE Last administered on 06/29/18at 12:11; Admin Dose 25 ML; Start 06/09/18 at 14:30 Dextrose (D50w Syringe) 50 ml Q15M PRN IV DECREASED GLUCOSE; Start 06/09/18 at 14:30 Glucagon (Glucagen) 1 mg Q15M PRN IM DECREASED GLUCOSE; Start 06/09/18 at 14:30 Glucose (Glutose) 15 gm Q15M PRN BUCCAL DECREASED GLUCOSE; Start 06/09/18 at 14:30 Ferrous Sulfate (Ferrous Sulfate (Ec)) 325 mg DAILY PO Last administered on 07/16/18at 09:43; Admin Dose 325 MG; Start 06/13/18 at 10:30; Stop 08/12/18 at 10:29 Levalbuterol (Xopenex Neb) 1.25 mg Q6H RESP THERAPY PRN HHN sob/wheezing Last administered on 07/12/18 09:05; Admin Dose 1.25 MG; Start 06/14/18 at 09:00 Guaifenesin/ Dextromethorphan (Mucinex Dm) 1 tab BID PO Last administered on 07/16/18 09:43; Admin Dose 1 TAB; Start 06/14/18 at 09:30 Metformin HCl (Glucophage) 1,000 mg BID WITH MEALS PO Last administered on 07/16/18 08:00; Admin Dose 1,000 MG; Start 06/16/18 at 18:00 Ascorbic Acid (Vitamin C) 500 mg DAILY PO Last administered on 07/16/18 09:43; Admin Dose 500 MG; Start 06/17/18 at 09:00; Stop 08/16/18 at 08:59 Guaifenesin/ Codeine Phosphate (Robitussin Ac Liquid Cup) 5 ml Q4H PRN PO cough Last administered on 06/18/18 20:25; Admin Dose 5 ML; Start 06/18/18 at 12:00 Rifampin (Rifampin) 600 mg DAILY PO Last administered on 07/16/18 09:42; Admin Dose 600 MG; Start 06/20/18 at 14:30 Glimepiride (Amaryl) 4 mg QHS PO Last administered on 07/15/18 20:25; Admin Dose 4 MG; Start 06/25/18 at 21:00 Glimepiride (Amaryl) 2 mg AC BREAKFAST PO Last administered on 07/16/18 08:01; Admin Dose 2 MG; Start 06/26/18 at 07:00 Vancomycin HCl (Vanco Iv Per Pharmacy) VANCOMYCIN PER PHARMACY PER PROTOCOL XX ; Start 06/28/18 at 16:00 IV Flush (NS 10 ml) 10 ml PRN PRN IV FLUSH LINE; Start 06/28/18 at 18:30 Magnesium Citrate (Citroma) 300 ml DAILY PRN PO constipation Last administered on 07/10/18 15:32; Admin Dose 300 ML; Start 06/29/18 at 15:00 Zolpidem Tartrate (Ambien) 10 mg HS PRN PO insomnia Last administered on 07/11/18 21:46; Admin Dose 10 MG; Start 06/29/18 at 17:00 Multi-Ingredient Ointment (Eucerin Cream) 1 applic BID TOP Last administered on 07/16/18 09:47; Admin Dose 1 APPLIC; Start 07/01/18 at 21:30 Insulin Human NPH (Humulin N) 12 unit DAILY@20 SC Last administered on 07/15/18 20:23; Admin Dose 12 UNIT; Start 07/02/18 at 20:00 Alteplase, Recombinant (Cathflo (Activase)) 2 mg MAY REPEAT X1 PRN CATHETER IF CATHETER REMAINS OCCULUDED Last administered on 07/11/18 23:23; Admin Dose 2 MG; Start 07/05/18 at 18:00 IV Flush (NS 10 ml) 10 ml PRN PRN IV FLUSH LINE; Start 07/07/18 at 19:00 Docusate Sodium (Colace) 100 mg DAILY PO Last administered on 07/16/18 09:43; Admin Dose 100 MG; Start 07/11/18 at 09:30 Ondansetron HCl (Zofran Inj) 4 mg Q6H PRN IV NAUSEA AND/OR VOMITING Last administered on 07/16/18 09:43; Admin Dose 4 MG; Start 07/11/18 at 09:30 Pantoprazole (Protonix Tab) 40 mg DAILY@06 PO Last administered on 07/16/18 06:29; Admin Dose 40 MG; Start 07/12/18 at 06:00 Bisacodyl (Dulcolax) 10 mg DAILY PRN PO CONSTIPATION; Start 07/11/18 at 09:30 Acetaminophen (Tylenol Tab) 650 mg Q6H PRN PO MILD PAIN(1-3)OR ELEVATED TEMP; Start 07/11/18 at 09:30 Vancomycin HCl 1.25 gm/Sodium Chloride 250 ml @ 83.333 mls/ hr Q8H IVPB Last administered on 07/16/18 12:30; Admin Dose 83.333 MLS/HR; Start 07/12/18 at 20:00 VTE Prophylaxis Risk score (from Nsg)>0 risk: 3 SCD applied (from Nsg): No SCD contraindication: other Lines/Catheters IV Catheter Type: Garcia in Place: No Assessment/Plan Hospital Course Subjective no acute issues Objective Physical exam General: Patient is laying in bed and answers questions appropriately Mentation: Patient is alert and oriented 4, Head: Normocephalic atraumatic Eyes: EOMI, pupils reactive to light Neck: Supple, nontender, midline Respiratory: Coarse to auscultation bilaterally Cardiovascular: regular rate, no obvious murmurs Gastrointestinal: non-tender to palpation, bowel sounds heard. Neurological: Moves all extremities spontaneously Skin: No new skin lesions Assessment/Plan 1. 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 BITA performed with thickening/densities on tricuspid valve. Unable to rule out vegetation. - ID on board and appreciate recommendations. Will treat for endocarditis in setting of MRSA bacteremia and hx drug use 2. MRSA bacteremia- resolved - Repeat blood culture negative. Remains afebrile with nl WBC. - ID on board and appreciate recommendations. 3. Poorly controlled diabetes- improved - A1c noted - sugars remain controlled - Endocrinology consultation appreciated. Continue on current insulin and glimepiride. 4. Extensive bilateral multilobar pneumonia - Patient found with MRSA in sputum and CT scan showing cavitating lesions but improvement in bilateral infiltrate - Pulm on board and continue current treatment. Cocci studies. After review of recent CT scan concern for septic emboli. BITA performed - Repeat CT scan performed this am showing "Multifocal bilateral areas of pneumonia are again present and have diminished in overall size however there is interval development of multiple foci of lucencies within the areas of consolidation suggestive for bronchiectasis or developing small cavitary lesions." - ID recommendations appreciated 5. Homelessness - SW on board 6. History of meth abuse - Patient states last use was 2 weeks prior to admission. Counseled on cessation. 7. Tobacco use - Cessation advised. 8. Iron Deficient anemia. - Continue oral iron. - H&H stable. 9. Mild asthma. - Currently stable Constipation -Encourage use of laxatives as needed 10. Disposition - Medically stable for discharge once accepted to SNF HAYDEE RAYO Jul 16, 2018 12:36
--- NOTE | 2018-07-16 14:32 | CONS ---
Assessment/Plan Assessment/Plan Hospital Course (Demo Recall) ID PROGRESS NOTE CURRENT ABX: DAY # => Vanco IV + Rifampin 07/15/185 07/15/18 0435 24H INTERVAL SUMMARY * Clinically stable, no fevers, NAD -- DC PLANNING IN PROCESS DIAGNOSTIC IMAGING * 07/07/18 CXR: 1. Right PICC line in place at the cavoatrial junction region. 2. Patchy left lung and right mid lung infiltrates, gradually improving. * 06/08/18 CXR: Diffuse bilateral infiltrates with more focal consolidation within the right lower, left upper and left lower lung zones. * 06/11/18 2D ECHO: No mention of vegetation. MICRO/OTHER * * 06/18/18 AFB -> AFB SMEAR Final ACID FAST BACILLI NONE SEEN * 06/17/18 AFB ->AFB SMEAR Final ACID FAST BACILLI NONE SEEN * 06/16/18 AFB (-) AFB SMEAR Final ACID FAST BACILLI NONE SEEN * 06/16/18 RESP CX: RESPIRATORY CULTURE Preliminary Organism 1 STAPHYLOCOCCUS AUREUS QUANTITY 1+ Organism 2 BERNABE ALBICANS QUANTITY SCANT GROWTH Organism 3 NORMAL RESPIRATORY ARACELI QUANTITY SCANT GROWTH * 06/08/18 BCX (+) MRSA 1/2 bottles == also (+)Corynebacterium & CoNS -- skin contaminants * 06/11/18 BCX (-) * Urine Cx (-) 24H * 06/16/18 RESPIRATORY CULTURE Preliminary Organism 1 NORMAL RESPIRATORY ARACELI QUANTITY SCANT GROWTH PHYSICAL EXAMINATION: GENERAL: VSS, NAD HEENT: AT, NC, anicteric, NECK: Supple, CHEST: Equal chest rise bilaterally, without dyspnea on observation HEART: Pulse RRR ABDOMEN: Soft / NT EXTREMITIES: Warm, dry SKIN: No rash, no diaphoresis ID ASSESSMENT 42 yo F admit with: 1. S/P Sepsis with fevers, leukocytosis, tachycardia, associated w/ MRSA bacteremia on admission due to #2 = RESOLVED * 06/11/18 2D ECHO: No mention of vegetation. 2. Extensive bilateral multilobar pneumonia with areas of cavitation, most likely MRSA * CT concerning for developing cavitation/necrotizing pna.... * r/o MTB, opportunistic, fungal vs aspergillosis 3. COPD Asthmatic exacerbation 4. Tobaccoism 5. History of recent meth abuse 6. Iron Deficient anemia. 7. Poorly controlled diabetes 8. Homelessness (-)MRSA Nares ABX ALLERGIES: KNDA INVASIVES: PIV CURRENT ABX: DAY # => Vanco IV + Rifampin ID RECOMMENDATIONS/PLAN: 1. Pending discharge arrangements on IV Vanco last dose August 05 . Consultation Date/Type/Reason Admit Date/Time Jun 08, 2018 at 23:53 Initial Consult Date Requesting Provider: HAYDEE RAYO Date/Time of Note DATE: 07/16/18 TIME: 14:28 Exam/Review of Systems Exam Vitals Vital Signs Date Temp Pulse Resp B/P (MAP) Pulse Ox O2 O2 Flow FiO2 Time Delivery Rate 07/16/18 98.4 119 18 112/84 98 Room Air 08:32 (93) 07/12/18 21 09:05 Intake and Output 07/15/18 07/15/18 07/16/18 1515:00 23:00 07:00 IntakeIntake Total 1050 ml 550 ml 650 ml BalanceBalance 1050 ml 550 ml 650 ml Results Result Diagram: 07/15/18 0435 07/15/18 0435 Results 24hrs Laboratory Tests Test 07/15/18 17:38 07/15/18 20:15 07/16/18 03:20 07/16/18 07:59 Bedside Glucose 222 H 127 183 Vancomycin Level 16.8 Trough Test 07/16/18 12:28 Bedside Glucose 184 Medications Medication Current Medications Diagnostic Test (Pha) (Accu-Chek) 1 ea 02 XX Last administered on 07/05/18at 01:50; Admin Dose 1 EA; Start 06/10/18 at 02:00 Insulin Aspart (Novolog Insulin Pen) NOVOLOG *MILD* ALGORITHM WITH MEALS BEDTIME SC Last administered on 07/16/18at 12:30; Admin Dose 2 UNIT; Start 06/09/18 at 18:00 Miscellaneous Information 1 ea NOTE XX ; Start 06/09/18 at 14:30 Glucose (Glutose) 15 gm Q15M PRN PO DECREASED GLUCOSE; Start 06/09/18 at 14:30 Glucose (Glutose) 22.5 gm Q15M PRN PO DECREASED GLUCOSE; Start 06/09/18 at 14:30 Dextrose (D50w Syringe) 25 ml Q15M PRN IV DECREASED GLUCOSE Last administered on 06/29/18at 12:11; Admin Dose 25 ML; Start 06/09/18 at 14:30 Dextrose (D50w Syringe) 50 ml Q15M PRN IV DECREASED GLUCOSE; Start 06/09/18 at 14:30 Glucagon (Glucagen) 1 mg Q15M PRN IM DECREASED GLUCOSE; Start 06/09/18 at 14:30 Glucose (Glutose) 15 gm Q15M PRN BUCCAL DECREASED GLUCOSE; Start 06/09/18 at 14:30 Ferrous Sulfate (Ferrous Sulfate (Ec)) 325 mg DAILY PO Last administered on 07/16/18 09:43; Admin Dose 325 MG; Start 06/13/18 at 10:30; Stop 08/12/18 at 10:29 Levalbuterol (Xopenex Neb) 1.25 mg Q6H RESP THERAPY PRN HHN sob/wheezing Last administered on 07/12/18 09:05; Admin Dose 1.25 MG; Start 06/14/18 at 09:00 Guaifenesin/ Dextromethorphan (Mucinex Dm) 1 tab BID PO Last administered on 07/16/18 09:43; Admin Dose 1 TAB; Start 06/14/18 at 09:30 Metformin HCl (Glucophage) 1,000 mg BID WITH MEALS PO Last administered on 07/16/18 08:00; Admin Dose 1,000 MG; Start 06/16/18 at 18:00 Ascorbic Acid (Vitamin C) 500 mg DAILY PO Last administered on 07/16/18 09:43; Admin Dose 500 MG; Start 06/17/18 at 09:00; Stop 08/16/18 at 08:59 Guaifenesin/ Codeine Phosphate (Robitussin Ac Liquid Cup) 5 ml Q4H PRN PO cough Last administered on 06/18/18 20:25; Admin Dose 5 ML; Start 06/18/18 at 12:00 Rifampin (Rifampin) 600 mg DAILY PO Last administered on 07/16/18 09:42; Admin Dose 600 MG; Start 06/20/18 at 14:30 Glimepiride (Amaryl) 4 mg QHS PO Last administered on 07/15/18 20:25; Admin Dose 4 MG; Start 06/25/18 at 21:00 Glimepiride (Amaryl) 2 mg AC BREAKFAST PO Last administered on 07/16/18 08:01; Admin Dose 2 MG; Start 06/26/18 at 07:00 Vancomycin HCl (Vanco Iv Per Pharmacy) VANCOMYCIN PER PHARMACY PER PROTOCOL XX ; Start 06/28/18 at 16:00 IV Flush (NS 10 ml) 10 ml PRN PRN IV FLUSH LINE; Start 06/28/18 at 18:30 Magnesium Citrate (Citroma) 300 ml DAILY PRN PO constipation Last administered on 07/10/18 15:32; Admin Dose 300 ML; Start 06/29/18 at 15:00 Zolpidem Tartrate (Ambien) 10 mg HS PRN PO insomnia Last administered on 07/11/18 21:46; Admin Dose 10 MG; Start 06/29/18 at 17:00 Multi-Ingredient Ointment (Eucerin Cream) 1 applic BID TOP Last administered on 07/16/18 09:47; Admin Dose 1 APPLIC; Start 07/01/18 at 21:30 Insulin Human NPH (Humulin N) 12 unit DAILY@20 SC Last administered on 07/15/18 20:23; Admin Dose 12 UNIT; Start 07/02/18 at 20:00 Alteplase, Recombinant (Cathflo (Activase)) 2 mg MAY REPEAT X1 PRN CATHETER IF CATHETER REMAINS OCCULUDED Last administered on 07/11/18 23:23; Admin Dose 2 MG ; Start 07/05/18 at 18:00 IV Flush (NS 10 ml) 10 ml PRN PRN IV FLUSH LINE; Start 07/07/18 at 19:00 Docusate Sodium (Colace) 100 mg DAILY PO Last administered on 07/16/18 09:43; Admin Dose 100 MG; Start 07/11/18 at 09:30 Ondansetron HCl (Zofran Inj) 4 mg Q6H PRN IV NAUSEA AND/OR VOMITING Last adm inistered on 07/16/18 09:43; Admin Dose 4 MG; Start 07/11/18 at 09:30 Pantoprazole (Protonix Tab) 40 mg DAILY@06 PO Last administered on 07/16/18 06:29; Admin Dose 40 MG; Start 07/12/18 at 06:00 Bisacodyl (Dulcolax) 10 mg DAILY PRN PO CONSTIPATION; Start 07/11/18 at 09:30 Acetaminophen (Tylenol Tab) 650 mg Q6H PRN PO MILD PAIN(1-3)OR ELEVATED TEMP; Start 07/11/18 at 09:30 Vancomycin HCl 1.25 gm/Sodium Chloride 250 ml @ 83.333 mls/ hr Q8H IVPB Last administered on 07/16/18at 12:30; Admin Dose 83.333 MLS/HR; Start 07/12/18 at 20:00 MINNIE VICTORIA NP Jul 16, 2018 14:32
[2018-07-16 14:49] VITALS: BP 118/70; PULSE 115; RESP 18
[2018-07-16 20:00] VITALS: BP 113/81; PULSE 110; RESP 19
[2018-07-16] MEDS: GLIMEPIRIDE 4 MG TAB PO SCH (20:50)
[2018-07-16] MEDS: NPH, HUMAN INSULIN ISOPHANE 3ML VIAL SC SCH (20:54)
[2018-07-17 02:00] VITALS: BP 101/69; PULSE 96; RESP 19
[2018-07-17] MEDS: ACCU-CHEK XX SCH (02:00)
[2018-07-17] MEDS: VANCOMYCIN HCL 1.25 GM in SOD CHLORIDE 0.9% 250 ML IVPB SCH ×3 (04:12→21:14)
[2018-07-17] MEDS: PANTOPRAZOLE (EC) 40 MG TAB PO SCH (06:13)
[2018-07-17] MEDS: GLIMEPIRIDE 2 MG TAB PO SCH (07:56)
[2018-07-17] MEDS: ONDANSETRON 4 MG INJ IV PRN (07:56)
[2018-07-17 08:00] VITALS: BP 102/70; PULSE 98; RESP 18
[2018-07-17] MEDS: RIFAMPIN 300 MG CAP PO SCH (08:00)
[2018-07-17] MEDS: DOCUSATE SODIUM 100 MG CAP PO SCH (08:00)
[2018-07-17] MEDS: FERROUS SULFATE (EC) 325 MG TAB PO SCH (08:00)
[2018-07-17] MEDS: ASCORBIC ACID 500 MG TAB PO SCH (08:00)
[2018-07-17] MEDS: metFORMIN 500 MG TAB PO SCH ×2 (08:00→17:32)
[2018-07-17] MEDS: GUAIFENESIN/DM (SR) TAB PO SCH ×2 (08:00→21:39)
[2018-07-17] MEDS: INSULIN ASPART [NOVOLOG] 3 ML PEN SC SCH ×4 (08:02→21:00)
[2018-07-17] MEDS: EUCERIN 113 GM CR TOP SCH ×2 (08:05→21:18)
--- NOTE | 2018-07-17 14:02 | CONS ---
Assessment/Plan Assessment/Plan Hospital Course (Demo Recall) No acute changes, looks comfortable, no fevers AFB smears negative 3 sets, cocci neg Microbiology: Blood culture on June 08 grew MRSA, repeat blood cultures negative, sputum culture on June 16 grew Talia albicans and MRSA. Serology for HIV negative Antimicrobials: Rifampin Vanco Physical examination: Well-developed middle-aged woman who is alert in no distress. Head atraumatic normocephalic sclera nonicteric. Neck is supple chest rise symmetrical breath sounds diminished bases. Heart S1-S2. Abdomen soft bowel sounds present. Extremities without cyanosis. Assessment: 1. S/p sepsis 2. 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 Necrotizing MRSA pneumonia with areas of cavitation per CT ?septic emboli 4. Homelessness 5. Poorly controlled diabetes 6. Meth amphetamine abuse Plan: Remains stable, pending discharge arrangements on IV Vanco last dose August 05 Consultation Date/Type/Reason Admit Date/Time Jun 08, 2018 at 23:53 Initial Consult Date Type of Consult id Requesting Provider: HAYDEE RAYO Date/Time of Note DATE: 07/17/18 TIME: 14:02 Exam/Review of Systems Exam Vitals Vital Signs Date Temp Pulse Resp B/P (MAP) Pulse Ox O2 O2 Flow FiO2 Time Delivery Rate 07/17/18 97.9 98 18 102/70 98 Room Air 08:00 (81) Intake and Output 07/16/18 07/16/18 07/17/18 1515:00 23:00 07:00 IntakeIntake Total 1130 ml 830 ml 700 ml BalanceBalance 1130 ml 830 ml 700 ml Results Result Diagram: 07/15/18 0435 07/15/18 0435 Results 24hrs Laboratory Tests Test 07/16/18 17:36 07/16/18 20:49 07/17/18 07:54 07/17/18 12:05 Bedside Glucose 322 H 176 189 90 Medications Medication Current Medications Diagnostic Test (Pha) (Accu-Chek) 1 ea 02 XX Last administered on 07/05/18at 01:50; Admin Dose 1 EA; Start 06/10/18 at 02:00 Insulin Aspart (Novolog Insulin Pen) NOVOLOG *MILD* ALGORITHM WITH MEALS BEDTIME SC Last administered on 07/17/18at 08:02; Admin Dose 2 UNIT; Start 06/09/18 at 18:00 Miscellaneous Information 1 ea NOTE XX ; Start 06/09/18 at 14:30 Glucose (Glutose) 15 gm Q15M PRN PO DECREASED GLUCOSE; Start 06/09/18 at 14:30 Glucose (Glutose) 22.5 gm Q15M PRN PO DECREASED GLUCOSE; Start 06/09/18 at 14:30 Dextrose (D50w Syringe) 25 ml Q15M PRN IV DECREASED GLUCOSE Last administered on 06/29/18at 12:11; Admin Dose 25 ML; Start 06/09/18 at 14:30 Dextrose (D50w Syringe) 50 ml Q15M PRN IV DECREASED GLUCOSE; Start 06/09/18 at 14:30 Glucagon (Glucagen) 1 mg Q15M PRN IM DECREASED GLUCOSE; Start 06/09/18 at 14:30 Glucose (Glutose) 15 gm Q15M PRN BUCCAL DECREASED GLUCOSE; Start 06/09/18 at 14:30 Ferrous Sulfate (Ferrous Sulfate (Ec)) 325 mg DAILY PO Last administered on 07/17/18at 08:00; Admin Dose 325 MG; Start 06/13/18 at 10:30; Stop 08/12/18 at 10:29 Levalbuterol (Xopenex Neb) 1.25 mg Q6H RESP THERAPY PRN HHN sob/wheezing Last administered on 07/12/18at 09:05; Admin Dose 1.25 MG; Start 06/14/18 at 09:00 Guaifenesin/ Dextromethorphan (Mucinex Dm) 1 tab BID PO Last administered on 07/17/18at 08:00; Admin Dose 1 TAB; Start 06/14/18 at 09:30 Metformin HCl (Glucophage) 1,000 mg BID WITH MEALS PO Last administered on 07/17/18at 08:00; Admin Dose 1,000 MG; Start 06/16/18 at 18:00 Ascorbic Acid (Vitamin C) 500 mg DAILY PO Last administered on 07/17/18at 08:00; Admin Dose 500 MG; Start 06/17/18 at 09:00; Stop 08/16/18 at 08:59 Guaifenesin/ Codeine Phosphate (Robitussin Ac Liquid Cup) 5 ml Q4H PRN PO cough Last administered on 06/18/18at 20:25; Admin Dose 5 ML; Start 06/18/18 at 12:00 Rifampin (Rifampin) 600 mg DAILY PO Last administered on 07/17/18 08:00; Admin Dose 600 MG; Start 06/20/18 at 14:30 Glimepiride (Amaryl) 4 mg QHS PO Last administered on 07/16/18 20:50; Admin Dose 4 MG; Start 06/25/18 at 21:00 Glimepiride (Amaryl) 2 mg AC BREAKFAST PO Last administered on 07/17/18 07:56; Admin Dose 2 MG; Start 06/26/18 at 07:00 Vancomycin HCl (Vanco Iv Per Pharmacy) VANCOMYCIN PER PHARMACY PER PROTOCOL XX ; Start 06/28/18 at 16:00 IV Flush (NS 10 ml) 10 ml PRN PRN IV FLUSH LINE; Start 06/28/18 at 18:30 Magnesium Citrate (Citroma) 300 ml DAILY PRN PO constipation Last administered on 07/10/18 15:32; Admin Dose 300 ML; Start 06/29/18 at 15:00 Zolpidem Tartrate (Ambien) 10 mg HS PRN PO insomnia Last administered on 07/11/18 21:46; Admin Dose 10 MG; Start 06/29/18 at 17:00 Multi-Ingredient Ointment (Eucerin Cream) 1 applic BID TOP Last administered on 07/17/18 08:05; Admin Dose 1 APPLIC; Start 07/01/18 at 21:30 Insulin Human NPH (Humulin N) 12 unit DAILY@20 SC Last administered on 07/16/18 20:54; Admin Dose 12 UNIT; Start 07/02/18 at 20:00 Alteplase, Recombinant (Cathflo (Activase)) 2 mg MAY REPEAT X1 PRN CATHETER IF CATHETER REMAINS OCCULUDED Last administered on 07/11/18 23:23; Admin Dose 2 MG; Start 07/05/18 at 18:00 IV Flush (NS 10 ml) 10 ml PRN PRN IV FLUSH LINE; Start 07/07/18 at 19:00 Docusate Sodium (Colace) 100 mg DAILY PO Last administered on 07/17/18 08:00; Admin Dose 100 MG; Start 07/11/18 at 09:30 Ondansetron HCl (Zofran Inj) 4 mg Q6H PRN IV NAUSEA AND/OR VOMITING Last administered on 07/17/18at 07:56; Admin Dose 4 MG; Start 07/11/18 at 09:30 Pantoprazole (Protonix Tab) 40 mg DAILY@06 PO Last administered on 07/17/18at 06:13; Admin Dose 40 MG; Start 07/12/18 at 06:00 Bisacodyl (Dulcolax) 10 mg DAILY PRN PO CONSTIPATION; Start 07/11/18 at 09:30 Acetaminophen (Tylenol Tab) 650 mg Q6H PRN PO MILD PAIN(1-3)OR ELEVATED TEMP; Start 07/11/18 at 09:30 Vancomycin HCl 1.25 gm/Sodium Chloride 250 ml @ 83.333 mls/ hr Q8H IVPB Last administered on 07/17/18at 12:46; Admin Dose 83.333 MLS/HR; Start 07/12/18 at 20:00 JOSE GOVEA NP Jul 17, 2018 14:02
[2018-07-17 14:20] VITALS: BP 112/86; PULSE 127; RESP 19
--- NOTE | 2018-07-17 15:40 | PN ---
Date/Time of Note Date/Time of Note DATE: 07/17/18 TIME: 15:38 Assessment/Plan VTE Prophylaxis Risk score (from Ns)>0 risk: 4 SCD applied (from [facility]): No SCD contraindicated: low risk/ambulating Pharmacological prophylaxis: NA/contraindicated Pharm contraindication: low risk/ambulating Lines/Catheters IV C[facility]ter Type [facility]from [facility] PICC Line Central line still needed: Yes Urinary Cath still in place: No Assessment/Plan Assessment/Plan 1. 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 CM on board for placement - Cardiology on board and recommendations appreciated. BITA performed with thickening/densities on tricuspid valve. Unable to rule out vegetation. - ID on board and appreciate recommendations. Will treat for endocarditis in se tting of MRSA bacteremia and hx drug use 2. MRSA bacteremia- resolved - Repeat blood culture negative. Remains afebrile with nl WBC. - ID on board and appreciate recommendations. 3. Poorly controlled diabetes- improved - A1c noted - fluctuates based on diet - Endocrinology consultation appreciated. Continue on current insulin and glimepiride. 4. Extensive bilateral multilobar pneumonia - Patient found with MRSA in sputum and CT scan showing cavitating lesions but improvement in bilateral infiltrate - Pulm on board and continue current treatment. Cocci studies. After review of recent CT scan concern for septic emboli. BITA performed - Repeat CT scan performed this am showing "Multifocal bilateral areas of pneumonia are again present and have diminished in overall size however there is interval development of multiple foci of lucencies within the areas of consolidation suggestive for bronchiectasis or developing small cavitary lesions." - ID recommendations appreciated 5. Homelessness - SW on board 6. History of meth abuse - Patient states last use was 2 weeks prior to admission. Counseled on cessation. 7. Tobacco use - Cessation advised. 8. Iron Deficient anemia. - Continue oral iron. - H&H stable. 9. Mild asthma. - Currently stable 10. Disposition - Remains medically stable with plan to continue IV antibiotics until 08/05. CM on board for SNF placement Result Diagram: 07/15/18 0435 07/15/18 0435 Results 24hrs Laboratory Tests Test 07/16/18 17:36 07/16/18 20:49 07/17/18 07:54 07/17/18 12:05 Bedside Glucose 322 H 176 189 90 Subjective 24 Hr Interval Summary Free Text/Dictation Patient remains stable with no acute issues. No overnight events. Exam/Review of Systems Exam Vitals Vital Signs Date Temp Pulse Resp B/P (MAP) Pulse Ox O2 O2 Flow FiO2 Time Delivery Rate 07/17/18 97.9 98 18 102/70 98 Room Air 08:00 (81) Intake and Output 07/16/18 07/16/18 07/17/18 1515:00 23:00 07:00 IntakeIntake Total 1130 ml 830 ml 700 ml BalanceBalance 1130 ml 830 ml 700 ml Exam General: Patient is laying in bed and answers questions appropriately Respiratory: Diminished. no wheezing or rhonchi Cardiovascular: regular rate and rhythm, no obvious murmurs Gastrointestinal: soft, non-tender to palpation, bowel sounds heard. Neurological: Moves all extremities spontaneously Skin: No new skin lesions Results Results 24hrs Laboratory Tests Test 07/16/18 17:36 07/16/18 20:49 07/17/18 07:54 07/17/18 12:05 Bedside Glucose 322 H 176 189 90 Medications Medication Current Medications Diagnostic Test (Pha) (Accu-Chek) 1 ea 02 XX Last administered on 07/05/18at 01:50; Admin Dose 1 EA; Start 06/10/18 at 02:00 Insulin Aspart (Novolog Insulin Pen) NOVOLOG *MILD* ALGORITHM WITH MEALS BEDTIME SC Last administered on 07/17/18at 08:02; Admin Dose 2 UNIT; Start 06/09/18 at 18:00 Miscellaneous Information 1 ea NOTE XX ; Start 06/09/18 at 14:30 Glucose (Glutose) 15 gm Q15M PRN PO DECREASED GLUCOSE; Start 06/09/18 at 14:30 Glucose (Glutose) 22.5 gm Q15M PRN PO DECREASED GLUCOSE; Start 06/09/18 at 14:3 0 Dextrose (D50w Syringe) 25 ml Q15M PRN IV DECREASED GLUCOSE Last administered on 06/29/18at 12:11; Admin Dose 25 ML; Start 06/09/18 at 14:30 Dextrose (D50w Syringe) 50 ml Q15M PRN IV DECREASED GLUCOSE; Start 06/09/18 at 14:30 Glucagon (Glucagen) 1 mg Q15M PRN IM DECREASED GLUCOSE; Start 06/09/18 at 14:30 Glucose (Glutose) 15 gm Q15M PRN BUCCAL DECREASED GLUCOSE; Start 06/09/18 at 14:30 Ferrous Sulfate (Ferrous Sulfate (Ec)) 325 mg DAILY PO Last administered on 07/17/18 08:00; Admin Dose 325 MG; Start 06/13/18 at 10:30; Stop 08/12/18 at 10:29 Levalbuterol (Xopenex Neb) 1.25 mg Q6H RESP THERAPY PRN HHN sob/wheezing Last administered on 07/12/18 09:05; Admin Dose 1.25 MG; Start 06/14/18 at 09:00 Guaifenesin/ Dextromethorphan (Mucinex Dm) 1 tab BID PO Last administered on 07/17/18 08:00; Admin Dose 1 TAB; Start 06/14/18 at 09:30 Metformin HCl (Glucophage) 1,000 mg BID WITH MEALS PO Last administered on 07/17/18 08:00; Admin Dose 1,000 MG; Start 06/16/18 at 18:00 Ascorbic Acid (Vitamin C) 500 mg DAILY PO Last administered on 07/17/18 08:00; Admin Dose 500 MG; Start 06/17/18 at 09:00; Stop 08/16/18 at 08:59 Guaifenesin/ Codeine Phosphate (Robitussin Ac Liquid Cup) 5 ml Q4H PRN PO cough Last administered on 06/18/18 20:25; Admin Dose 5 ML; Start 06/18/18 at 12:00 Rifampin (Rifampin) 600 mg DAILY PO Last administered on 07/17/18 08:00; Admin Dose 600 MG; Start 06/20/18 at 14:30 Glimepiride (Amaryl) 4 mg QHS PO Last administered on 07/16/18at 20:50; Admin Dose 4 MG; Start 06/25/18 at 21:00 Glimepiride (Amaryl) 2 mg AC BREAKFAST PO Last administered on 07/17/18at 0 7:56; Admin Dose 2 MG; Start 06/26/18 at 07:00 Vancomycin HCl (Vanco Iv Per Pharmacy) VANCOMYCIN PER PHARMACY PER PROTOCOL XX ; Start 06/28/18 at 16:00 IV Flush (NS 10 ml) 10 ml PRN PRN IV FLUSH LINE; Start 06/28/18 at 18:30 Magnesium Citrate (Citroma) 300 ml DAILY PRN PO constipation Last administered on 07/10/18 15:32; Admin Dose 300 ML; Start 06/29/18 at 15:00 Zolpidem Tartrate (Ambien) 10 mg HS PRN PO insomnia Last administered on 07/11/18 21:46; Admin Dose 10 MG; Start 06/29/18 at 17:00 Multi-Ingredient Ointment (Eucerin Cream) 1 applic BID TOP Last administered on 07/17/18 08:05; Admin Dose 1 APPLIC; Start 07/01/18 at 21:30 Insulin Human NPH (Humulin N) 12 unit DAILY@20 SC Last administered on 07/16/18 20:54; Admin Dose 12 UNIT; Start 07/02/18 at 20:00 Alteplase, Recombinant (Cathflo (Activase)) 2 mg MAY REPEAT X1 PRN CATHETER IF CATHETER REMAINS OCCULUDED Last administered on 07/11/18 23:23; Admin Dose 2 MG; Start 07/05/18 at 18:00 IV Flush (NS 10 ml) 10 ml PRN PRN IV FLUSH LINE; Start 07/07/18 at 19:00 Docusate Sodium (Colace) 100 mg DAILY PO Last administered on 07/17/18 08:00; Admin Dose 100 MG; Start 07/11/18 at 09:30 Ondansetron HCl (Zofran Inj) 4 mg Q6H PRN IV NAUSEA AND/OR VOMITING Last administered on 07/17/18 07:56; Admin Dose 4 MG; Start 07/11/18 at 09:30 Pantoprazole (Protonix Tab) 40 mg DAILY@06 PO Last administered on 07/17/18 06:13; Admin Dose 40 MG; Start 07/12/18 at 06:00 Bisacodyl (Dulcolax) 10 mg DAILY PRN PO CONSTIPATION; Start 07/11/18 at 09:30 Acetaminophen (Tylenol Tab) 650 mg Q6H PRN PO MILD PAIN(1-3)OR ELEVATED TEMP; Start 07/11/18 at 09:30 Vancomycin HCl 1.25 gm/Sodium Chloride 250 ml @ 83.333 mls/ hr Q8H IVPB Last administered on 07/17/18 12:46; Admin Dose 83.333 MLS/HR; Start 07/12/18 at 20:00 DAVE HAMMONDS MD Jul 17, 2018 15:40
[2018-07-17] MEDS ORDERED: METOPROLOL 25 MG TAB PO ONE (17:00)
[2018-07-17 20:00] VITALS: BP 115/82; PULSE 119; RESP 19
[2018-07-17] MEDS: GLIMEPIRIDE 4 MG TAB PO SCH (21:14)
[2018-07-17] MEDS: NPH, HUMAN INSULIN ISOPHANE 3ML VIAL SC SCH (21:16)
[2018-07-18] MEDS: ACCU-CHEK XX SCH (01:23)
[2018-07-18 02:00] VITALS: BP 122/93; PULSE 112; RESP 19
[2018-07-18] MEDS: VANCOMYCIN HCL 1.25 GM in SOD CHLORIDE 0.9% 250 ML IVPB SCH (04:47)
[2018-07-18] MEDS: PANTOPRAZOLE (EC) 40 MG TAB PO SCH (05:12)
[2018-07-18 07:54] VITALS: BP 116/88; PULSE 130; RESP 16
[2018-07-18] MEDS: INSULIN ASPART [NOVOLOG] 3 ML PEN SC SCH (08:00)
[2018-07-18] MEDS: FERROUS SULFATE (EC) 325 MG TAB PO SCH (09:00)
[2018-07-18] MEDS: GLIMEPIRIDE 2 MG TAB PO SCH (09:00)
[2018-07-18] MEDS: EUCERIN 113 GM CR TOP SCH (09:00)
[2018-07-18] MEDS: DOCUSATE SODIUM 100 MG CAP PO SCH (09:00)
[2018-07-18] MEDS: metFORMIN 500 MG TAB PO SCH (09:00)
[2018-07-18] MEDS: GUAIFENESIN/DM (SR) TAB PO SCH (09:01)
[2018-07-18] MEDS: RIFAMPIN 300 MG CAP PO SCH (09:01)
[2018-07-18] MEDS: ASCORBIC ACID 500 MG TAB PO SCH (09:01)
[2018-07-18] MEDS: ONDANSETRON 4 MG INJ IV PRN (09:05)
--- NOTE | 2018-07-18 11:58 | PN ---
Date/Time of Note Date/Time of Note DATE: 07/18/18 TIME: 11:54 Assessment/Plan VTE Prophylaxis Risk score (from Ns)>0 risk: 4 SCD applied (from Ns): No SCD contraindicated: low risk/ambulating Pharmacological prophylaxis: NA/contraindicated Pharm contraindication: low risk/ambulating Lines/Catheters IV C[facility]ter Type (from [facility] PICC Line Central line still needed: No Urinary Cath still in place: No Assessment/Plan Assessment/Plan 1. 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 She is getting restless with waiting for placement and requesting to leave AMA - Cardiology on board and recommendations appreciated. BITA performed with thickening/densities on tricuspid valve. Unable to rule out vegetation. - ID on board and appreciate recommendations. IV antibiotics until 08/05 2. MRSA bacteremia- resolved - Repeat blood culture negative. Remains afebrile with nl WBC. - ID on board and appreciate recommendations. 3. Poorly controlled diabetes- improved - A1c noted - fluctuates based on diet - Endocrinology consultation appreciated. Continue on current insulin and glimepiride. 4. Extensive bilateral multilobar pneumonia - Patient found with MRSA in sputum and CT scan showing cavitating lesions but improvement in bilateral infiltrate - Pulm on board and continue current treatment. Cocci studies. After review of recent CT scan concern for septic emboli. BITA performed - Repeat CT scan performed this am showing "Multifocal bilateral areas of pn [place] are again present and have diminished in overall size however there is interval development of multiple foci of lucencies within the areas of consolidation suggestive for bronchiectasis or developing small cavitary lesions." - ID recommendations appreciated 5. Homelessness - SW on board 6. History of meth abuse - Patient states last use was 2 weeks prior to admission. Counseled on ce ssation. 7. Tobacco use - Cessation advised. 8. Iron Deficient anemia. - Continue oral iron. - H&H stable. 9. Mild asthma. - Currently stable 10. Disposition - Remains medically stable with plan to continue IV antibiotics until 08/05. Patient leaving AMA despite discussion on risks Result Diagram: 07/15/18 0435 07/18/18 0637 Results 24hrs Laboratory Tests Test 07/17/18 12:05 07/17/18 17:30 07/17/18 19:56 07/18/18 06:37 Bedside Glucose 90 133 128 Blood Urea Nitrogen 14 Creatinine 0.43 L Test 07/18/18 08:14 Bedside Glucose 138 Subjective 24 Hr Interval Summary Free Text/Dictation Patient denies any acute issues. Her BF is leaving for [place] and she plans to go with him to visit her grandmother. She wants to leave AMA. Discussed risks of leaving and patient understands and still requesting to leave. Exam/Review of Systems Exam Vitals Vital Signs Date Temp Pulse Resp B/P (MAP) Pulse Ox O2 O2 Flow FiO2 Time Delivery Rate 07/18/18 98.4 130 16 116/88 95 07:54 (97) 07/17/18 Room Air 14:20 Intake and Output 07/17/18 07/17/18 07/18/18 1515:00 23:00 07:00 IntakeIntake Total 1150 ml 950 ml BalanceBalance 1150 ml 950 ml Exam General: Patient is laying in bed and answers questions appropriately Respiratory: Diminished. no wheezing or rhonchi Cardiovascular: regular rate and rhythm, no obvious murmurs Gastrointestinal: soft, non-tender to palpation, bowel sounds heard. Neurological: Moves all extremities spontaneously Skin: No new skin lesions Results Results 24hrs Laboratory Tests Test 07/17/18 12:05 07/17/18 17:30 07/17/18 19:56 07/18/18 06:37 Bedside Glucose 90 133 128 Blood Urea Nitrogen 14 Creatinine 0.43 L Test 07/18/18 08:14 Bedside Glucose 138 Medications Medication Current Medications Diagnostic Test (Pha) (Accu-Chek) 1 ea 02 XX Last administered on 07/05/18at 01:50; Admin Dose 1 EA; Start 06/10/18 at 02:00 Insulin Aspart (Novolog Insulin Pen) NOVOLOG *MILD* ALGORITHM WITH MEALS BEDTIME SC Last administered on 07/17/18at 08:02; Admin Dose 2 UNIT; Start 06/09/18 at 18:00 Miscellaneous Information 1 ea NOTE XX ; Start 06/09/18 at 14:30 Glucose (Glutose) 15 gm Q15M PRN PO DECREASED GLUCOSE; Start 06/09/18 at 14:30 Glucose (Glutose) 22.5 gm Q15M PRN PO DECREASED GLUCOSE; Start 06/09/18 at 14:30 Dextrose (D50w Syringe) 25 ml Q15M PRN IV DECREASED GLUCOSE Last administered on 06/29/18 12:11; Admin Dose 25 ML; Start 06/09/18 at 14:30 Dextrose (D50w Syringe) 50 ml Q15M PRN IV DECREASED GLUCOSE; Start 06/09/18 at 14:30 Glucagon (Glucagen) 1 mg Q15M PRN IM DECREASED GLUCOSE; Start 06/09/18 at 14:30 Glucose (Glutose) 15 gm Q15M PRN BUCCAL DECREASED GLUCOSE; Start 06/09/18 at 14:30 Ferrous Sulfate (Ferrous Sulfate (Ec)) 325 mg DAILY PO Last administered on 07/18/18 09:00; Admin Dose 325 MG; Start 06/13/18 at 10:30; Stop 08/12/18 at 10:29 Levalbuterol (Xopenex Neb) 1.25 mg Q6H RESP THERAPY PRN HHN sob/wheezing Last a dministered on 07/12/18 09:05; Admin Dose 1.25 MG; Start 06/14/18 at 09:00 Guaifenesin/ Dextromethorphan (Mucinex Dm) 1 tab BID PO Last administered on 07/18/18 09:01; Admin Dose 1 TAB; Start 06/14/18 at 09:30 Metformin HCl (Glucophage) 1,000 mg BID WITH MEALS PO Last administered on 07/18/18 09:00; Admin Dose 1,000 MG; Start 06/16/18 at 18:00 Ascorbic Acid (Vitamin C) 500 mg DAILY PO Last administered on 07/18/18 09:01; Admin Dose 500 MG; Start 06/17/18 at 09:00; Stop 08/16/18 at 08:59 Guaifenesin/ Codeine Phosphate (Robitussin Ac Liquid Cup) 5 ml Q4H PRN PO cough Last administered on 06/18/18 20:25; Admin Dose 5 ML; Start 06/18/18 at 12:00 Rifampin (Rifampin) 600 mg DAILY PO Last administered on 07/18/18 09:01; Admin Dose 600 MG; Start 06/20/18 at 14:30 Glimepiride (Amaryl) 4 mg QHS PO Last administered on 07/17/18 21:14; Admin Dose 4 MG; Start 06/25/18 at 21:00 Glimepiride (Amaryl) 2 mg AC BREAKFAST PO Last administered on 07/18/18 09:00; Admin Dose 2 MG; Start 06/26/18 at 07:00 Vancomycin HCl (Vanco Iv Per Pharmacy) VANCOMYCIN PER PHARMACY PER PROTOCOL XX ; Start 06/28/18 at 16:00 IV Flush (NS 10 ml) 10 ml PRN PRN IV FLUSH LINE; Start 06/28/18 at 18:30 Magnesium Citrate (Citroma) 300 ml DAILY PRN PO constipation Last administered on 07/10/18 15:32; Admin Dose 300 ML; Start 06/29/18 at 15:00 Zolpidem Tartrate (Ambien) 10 mg HS PRN PO insomnia Last administered on 07/11/18 21:46; Admin Dose 10 MG; Start 06/29/18 at 17:00 Multi-Ingredient Ointment (Eucerin Cream) 1 applic BID TOP Last administered on 07/17/18 21:18; Admin Dose 1 APPLIC; Start 07/01/18 at 21:30 Insulin Human NPH (Humulin N) 12 unit DAILY@20 SC Last administered on 07/17/18 21:16; Admin Dose 12 UNIT; Start 07/02/18 at 20:00 Alteplase, Recombinant (Cathflo (Activase)) 2 mg MAY REPEAT X1 PRN CATHETER IF CATHETER REMAINS OCCULUDED Last administered on 07/11/18 23:23; Admin Dose 2 M G; Start 07/05/18 at 18:00 IV Flush (NS 10 ml) 10 ml PRN PRN IV FLUSH LINE; Start 07/07/18 at 19:00 Docusate Sodium (Colace) 100 mg DAILY PO Last administered on 07/18/18 09:00; Admin Dose 100 MG; Start 07/11/18 at 09:30 Ondansetron HCl (Zofran Inj) 4 mg Q6H PRN IV NAUSEA AND/OR VOMITING Last ad ministered on 07/18/18 09:05; Admin Dose 4 MG; Start 07/11/18 at 09:30 Pantoprazole (Protonix Tab) 40 mg DAILY@06 PO Last administered on 07/18/18 05:12; Admin Dose 40 MG; Start 07/12/18 at 06:00 Bisacodyl (Dulcolax) 10 mg DAILY PRN PO CONSTIPATION; Start 07/11/18 at 09:30 Acetaminophen (Tylenol Tab) 650 mg Q6H PRN PO MILD PAIN(1-3)OR ELEVATED TEMP; Start 07/11/18 at 09:30 Vancomycin HCl 1.25 gm/Sodium Chloride 250 ml @ 83.333 mls/ hr Q8H IVPB Last administered on 07/18/18at 04:47; Admin Dose 83.333 MLS/HR; Start 07/12/18 at 20:00 DAVE HAMMONDS MD Jul 18, 2018 11:58
--- NOTE | 2018-07-18 16:20 | DS ---
Date/Time of Note Date/Time of Note DATE: 07/18/18 TIME: 16:12 Discharge Summary Admission/Discharge Info Admit Date/Time Jun 08, 2018 at 23:53 Discharge Date/Time Jul 18, 2018 at 11:50 Discharge Diagnosis 1. ?Endocarditis with possible vegetation on tricuspid valve 2. MRSA bacteremia 3. Poorly controlled diabetes- improved 4. Extensive bilateral multilobar pneumonia 5. Homelessness 6. History of meth abuse 7. Tobacco use 8. Iron Deficient anemia. 9. Mild asthma. Patient Condition: Stable Consults Infectious disease- Dr. Rodarte Pulmonology- Dr. Ribeiro cardiology- Dr. Love Endocrinology- Dr. Durham Procedures PROCEDURE: XR Chest. CLINICAL INDICATION: Check Line Placement TECHNIQUE: Single frontal view of the chest was obtained. COMPARISON: 06/26/2018 FINDINGS: The cardiomediastinal silhouette is normal size. Pulmonary vasculature is within normal limits. There is patchy infiltrates in the left lung, and in the right mid lung, appearing improved.. There is a right PICC line extending to the cavoatrial junction region. No signs of pleural fluid or pneumothorax are seen. The osseous structures and soft tissues are unremarkable. IMPRESSION: 1. Right PICC line in place at the cavoatrial junction region. 2. Patchy left lung and right mid lung infiltrates, gradually improving. RPTAT: DD .Peter Box MD, MD Date Time Electronically viewed and signed by .Peter Box MD, MD on 07/07/2018 17:20 DATE OF PROCEDURE: 06/28/2018 PROCEDURE: Transesophageal echocardiogram. PRE CODER: Abdi Love MD INDICATION: MRSA bacteremia, rule out endocarditis. PROCEDURE IN DETAILS: Written informed consent was obtained after risks, benefits and alternatives of the procedure were discussed with the patient in detail. The patient was brought into the recovery room/prep and hold. The patient underwent anesthesia by anesthesiologist. Transesophageal probe was advanced through oropharynx into the mid esophagus and stomach. Multiple views were obtained and it was removed. FINDINGS: 1. Normal LV size and systolic function. Ejection fraction is estimated about 60%. 2. Normal size aortic root. 3. Left atrial size appeared to be normal. 4. Right atrial size appeared to be normal. 5. Mitral valve appeared to be normal with trace mitral insufficiency only. 6. Aortic valve appeared to be tricuspid and normal with no significant stenosis or regurgitation. 7. Tricuspid valve appears to be thickened. There is an area of lucency/thickening on the mitral valve , but it is not mobile. Vegetation cannot be completely ruled out. 8. Pericardium with no evidence of effusion. CONCLUSION: 1. Normal left ventricular size and systolic function, ejection fraction of 60%. 2. Trace mitral regurgitation and tricuspid regurgitation. 3. Vegetation in the tricuspid valve cannot be ruled out. Dictated By: ABDI LOVE MD Hx of Present Illness Chief complaint: Generalized body pain and left flank pain and fever times 3 days This is a 42-year-old female with asthma and diabetes who presented to the emergency department with reports of body aches and cough times 3 days. Patient reports that she started experiencing body aches and cough along with a fever and chills for 3 days. She also had episodes of diarrhea. She reports she had productive phlegm as well. She was not able to get the flu shot this year. She is homeless. She is only on metformin at the current time for her diabetes. Allergies: NKDA Hospital Course Patient was admitted for treatment of DKA and transferred to ICU for management. Endocrinology was consulted for insulin recommendations. Patient was also treated for severe sepsis secondary to community acquired pneumonia. Imaging results were performed with concern for cavitating lesions/necrotizing pneumonia and Pulmonology was consulted. Respiratory cultures were positives for MRSA and ID was consulted for antibiotic management. There were concerns for septic embolic as well on CT scan and Cardiology was consulted for BITA to assess for endocarditis. Patient has questionable vegetation found and given risk factors she was treated for endocarditis with long tern IV antibiotics. Given patients homeless status and history of drug abuse, was consulted for SNF placement. Given patients age, placement was difficulty and patient became impatient about waiting for placement. She left AGAINST MEDICAL ADVICE since needed to go see her family in [place]. Follow-up Plan 1. Follow up with your PCP in 1 week. If you do not have one, it is best to call your insurance to find a provider 2. You will need to continue on antibiotics until August 05 3. You will need to continue on Glimepiride twice a day and Metformin twice a day as well as Insulin 12 units for proper glucose control 4. It is important to continue abstaining from any substance use 5. If experiencing any concerning symptoms, go to your closest emergency department Primary Care Provider Not On Staff Doctor Time spent on discharge: < 30 minutes Pending Labs Laboratory Tests Test 07/17/18 17:30 07/17/18 19:56 07/18/18 06:37 07/18/18 08:14 Bedside 133 128 138 Glucose mg/dL (70-220) mg/dL (70-220) mg/dL (70-220) Blood Urea 14 Nitrogen mg/dl (7-20) Creatinine 0.43 mg/dl (0.44-1. 00) DAVE HAMMONDS MD Jul 18, 2018 16:20
== END 2018-07-18 11:50 | DRG 871 ==
LOC: E/R 21:48 → 6WM 23:53 → EDBEDREQSVC 06-09 12:34 → 6WM 06-10 08:27 → PP2 07-01 12:09
PROVIDERS: ADMIT Family Medicine; ATTEND Internal Medicine
PROC: 02H633Z Insertion of Infusion Device into Right Atrium, Percutaneous Approach (ICD-10-PCS; 2018-06-28)
PROC: B24BZZ4 Ultrasonography of Heart with Aorta, Transesophageal (ICD-10-PCS; principal; 2018-06-28 07:00)
PROC: 02HV33Z Insertion of Infusion Device into Superior Vena Cava, Percutaneous Approach (ICD-10-PCS; 2018-07-07)
DX: A41.9 Sepsis, unspecified organism (principal); E11.10 Type 2 diabetes mellitus with ketoacidosis without coma; J18.1 Lobar pneumonia, unspecified organism; J18.9 Pneumonia, unspecified organism; I33.0 Acute and subacute infective endocarditis; E87.2 Acidosis; J45.31 Mild persistent asthma with (acute) exacerbation; J44.1 Chronic obstructive pulmonary disease with (acute) exacerbation; A15.9 Respiratory tuberculosis unspecified; R65.20 Severe sepsis without septic shock; F17.200 Nicotine dependence, unspecified, uncomplicated; E87.6 Hypokalemia; D50.0 Iron deficiency anemia secondary to blood loss (chronic); I36.8 Other nonrheumatic tricuspid valve disorders; E11.65 Type 2 diabetes mellitus with hyperglycemia; Y95 Nosocomial condition; R00.0 Tachycardia, unspecified; K21.9 Gastro-esophageal reflux disease without esophagitis; F15.10 Other stimulant abuse, uncomplicated; Z59.0 Homelessness
CPT/HCPCS: 36415; 36569; 71045; 71250; 74176; 76700; 76937; 80048; 80053; 80069; 80202; 80307; 81001; 81003; 82565; 82803; 82962; 83036; 83540; 83605; 83735; 84100; 84484; 84520; 84703; 85025; 85610; 85730; 86480; 86635; 86703; 86803; 87070; 87086; 87116; 87340; 87400; 87449; 90686; 93005; 93306; 93312; 93325; 94640; 94664; 96365; 97161; J0456; J0696; J1335; J1644; J1815; J2060; J2250; J2370; J2405; J2543; J2916; J2997; J3370; J3475; J3480; J7030; J7040; J7050; J7120

== ENCOUNTER 2018-09-15 21:28 | Emergency (ER) | payer MEDICAID, OTHER ==
[~2018-09-15] VITALS: Ht 152.4 cm; Wt 50.3 kg
[2018-09-15 21:38] VITALS: Ht 152.4 cm; Wt 50.3 kg
[2018-09-15] MEDS ORDERED: KETOROLAC 30 MG INJ IM STA (22:29)
--- NOTE | 2018-09-15 22:42 | ERD ---
ER Documentation Chief Complaint Chief Complaint pt reports lower abd pain HPI This is a 42-year-old female who presents for evaluation of lower abdominal pain. Been on and off for the last 2 days, associated with dysuria and hesita ncy. She endorses vaginal bleeding, she denies nausea or vomiting, she has not had any chest pain or shortness of breath. She has had vaginal bleeding, but is currently on her period. She has a history of diabetes, she takes metformin for this. ROS All systems reviewed and are negative except as per history of present illness. Allergies Allergies: Coded Allergies: No Known Allergy (Unverified , 06/20/18) PMhx/Soc History of Surgery: Yes (4 C section) Anesthesia Reaction: No Hx Neurological Disorder: No Hx Respiratory Disorders: No Hx Cardiac Disorders: No Hx Psychiatric Problems: No Hx Miscellaneous Medical Probl: No Hx Substance Use: Yes (METHAMPETAMINE) Hx Tobacco Use: Yes Smoking Status: Current every day smoker Physical Exam Vitals Vital Signs Date Temp Pulse Resp B/P (MAP) Pulse Ox O2 O2 Flow FiO2 Time Delivery Rate 09/15/18 98.4 68 16 144/86 96 21:38 (105) Physical Exam Const: No acute distress Head: Atraumatic Eyes: Normal Conjunctiva, pupils equal round reactive to light ENT: Normal External Ears, Nose and Mouth. Neck: Full range of motion. No meningismus. Resp: Clear to auscultation bilaterally Cardio: Regular rate and rhythm, no murmurs Abd: Soft, non tender, no rebound or guarding, no McBurney's point tenderness, non distended. Normal bowel sounds Skin: No petechiae or rashes Back: No midline or flank tenderness Ext: No cyanosis, or edema Neur: Awake and alert Psych: Normal Mood and Affect Result Diagram: 09/15/18222909/15/182229 Results 24 hrs Laboratory Tests Test 09/15/18 21:49 09/15/18 22:30 Urine Color RED Urine Clarity CLOUDY Urine pH 6.0 Urine Specific [place] 1.035 Urine Ketones NEGATIVE mg/dL Urine Nitrite NEGATIVE mg/dL Urine Bilirubin NEGATIVE mg/dL Urine Urobilinogen NEGATIVE mg/dL Urine Leukocyte Esterase 2+ Juan C/ul Urine Microscopic RBC > 182 /HPF Urine Microscopic WBC 69 /HPF Urine Bacteria FEW /HPF Urine Hemoglobin 3+ mg/dL Urine Glucose 3+ mg/dL Urine Total Protein 2+ mg/dl Urine Test NEGATIVE White Blood Count 8.0 10^3/ul Red Blood Count 4.53 10^6/ul Hemoglobin 13.2 g/dl Hematocrit 39.0 % Mean Corpuscular Volume 86.1 fl Mean Corpuscular Hemoglobin 29.1 pg Mean Corpuscular Hemoglobin Concent 33.8 g/dl Red Cell Distribution Width 12.0 % Platelet Count 304 10^3/UL Mean Platelet Volume 11.4 fl Immature Granulocytes % 0.100 % Neutrophils % 58.2 % Lymphocytes % 34.6 % Monocytes % 5.2 % Eosinophils % 1.4 % Basophils % 0.5 % Nucleated Red Blood Cells % 0.0 /100WBC Immature Granulocytes # 0.010 10^3/ul Neutrophils # 4.6 10^3/ul Lymphocytes # 2.8 10^3/ul Monocytes # 0.4 10^3/ul Eosinophils # 0.1 10^3/ul Basophils # 0.0 10^3/ul Nucleated Red Blood Cells # 0.0 10^3/ul Sodium Level 137 mmol/L Potassium Level 3.4 mmol/L Chloride Level 100 mmol/L Carbon Dioxide Level 26 mmol/L Anion Gap 11 Blood Urea Nitrogen 8 mg/dl Creatinine 0.51 mg/dl Est Glomerular Filtrat Rate mL/min > 60 mL/min Glucose Level 515 mg/dl Calcium Level 9.3 mg/dl Total Bilirubin 0.3 mg/dl Direct Bilirubin 0.00 mg/dl Indirect Bilirubin 0.3 mg/dl Aspartate Amino Transf (AST/SGOT) 13 IU/L Alanine Aminotransferase (ALT/SGPT) 19 IU/L Alkaline Phosphatase 138 IU/L Total Protein 7.5 g/dl Albumin 4.2 g/dl Globulin 3.30 g/dl Albumin/Globulin Ratio 1.27 Lipase 177 U/L Current Medications Medications Dose Sig/Yoselin Start Time Status Last (Trade) Ordered Route PRN Stop Time Admin Dose Reason Admin Ketorolac 15 mg ONCE STAT 09/15/18 DC 09/15/18 Tromethamine IM 22:29 22:49 (Toradol) 09/15/18 22:32 Sodium 1,000 ml @ Q1H STAT 09/15/18 DC 09/15/18 Chloride 1,000 mls/hr IV 23:39 23:51 09/16/18 00:38 Ceftriaxone 50 ml @ ONCE STAT 09/15/18 DC 09/15/18 Sodium 100 mls/hr IVPB 23:39 23:51 09/16/18 00:08 [place] [id number] Radiology Main Line: [phone] DIAGNOSTIC IMAGING REPORT Patient: KATHRIN ZHENG : 1975 Age: 42 Sex: F MR #: [id number] DOS: 09/15/189 Ordering MD: HAYDEE GRACE MD Location: E/R Room/Bed: PROCEDURE: US Pelvis. CLINICAL INDICATION: Pelvic pain. TECHNIQUE: The pelvis was evaluated with transabdominal and transvaginal sonography in the axial and sagittal planes. COMPARISON: No prior study is available for comparison. FINDINGS: Uterus: 9.8 x 4.4 x 4.2 cm. Endometrium: 3 mm. Right ovary: 3.1 x 2.7 x 1.5 cm. Left ovary: 3.1 x 2.3 x 1.4 cm. Uterine masses: There is a 1.2 x 1 cm hypoechoic lesion within the anterior myometrium. Ovarian masses: There is a hyperechoic lesion within the right ovary measuring 2.1 cm., 1.6 centimeter on the left.. Color Doppler and pulsed Doppler s onography demonstrate normal flow to the ovaries. The urinary bladder wall is thickened measuring up to 7 mm. Free fluid: None. IMPRESSION: Suboptimal exam secondary to lack of transvaginal exam. Fibroid uterus. Cystic echogenic lesions in the bilateral ovaries, suggestive of endometrioma versus hemorrhagic cyst. However, follow-up pelvic ultrasound 1-2 months is recommended to exclude cystic neoplasm. Thickened urinary bladder wall with internal echogenicity. Follow up to exclude cystitis versus neoplasm. Correlate with test to exclude ectopic or abnormal . Physician Db Date Time Electronically viewed and signed by Deion Alvarado Physician on 09/15/2018 23:59 RD/ CC: HAYDEE GRACE MD [id number] Procedures/MDM 42-year-old female presents with lower abdominal pain, as well as dysuria. She was also found to be hyperglycemic on labs. #Lower abdominal pain and dysuria: Her signs and symptoms were most consistent with a UTI. She had no abdominal tenderness, and no McBurney's point tender ness, thus at this point I have a very low suspicion for acute appendicitis, although this was discussed with the patient, and strict return precautions were given for any right lower quadrant pain or any abdominal pain where she should return to the emergency department immediately. Her urinalysis showed leukocytosis with hematuria (she is on her period), she was treated with ceftriaxone, and she will be discharged with Keflex for her UTI. Her ultrasound showed a likely hemorrhagic cyst, I recommended to have a follow-up ultrasound in 1 to 2 months. #Hyperglycemia. Glucose was 515, patient was given bolus of IV fluids, she had no anion gap acidosis, and no signs or symptoms of DKA, discussed dietary regimen, and recommended continue metformin and follow-up with PMD. At discharge patient was stable and in no distress. Departure Diagnosis: Primary Impression: Abdominal pain Abdominal location: unspecified location Qualified Codes: R10.9 - Unspecified abdominal pain Condition: Stable HAYDEE GRACE MD Sep 15, 2018 22:42
[2018-09-15] MEDS ORDERED: CEFTRIAXONE 1 GM/50 ML (PMX) 50 ML IVPB STA (23:39)
[2018-09-15] MEDS ORDERED: SOD CHLORIDE 0.9% 1,000 ML IV STA (23:39)
[2018-09-16] MEDS ORDERED: PHEN-538 PO (01:00)
[2018-09-16] MEDS ORDERED: CEPH-443 PO (01:00)
[2018-09-16] MEDS ORDERED: MTF1000T PO (01:02)
[2018-09-16 01:11] VITALS: BP 134/76; PULSE 73; RESP 16
== END 2018-09-16 01:14 | disposition home or self-care (01) ==
LOC: E/R 21:28
DX: R10.30 Lower abdominal pain, unspecified (principal); F17.210 Nicotine dependence, cigarettes, uncomplicated; R10.2 Pelvic and perineal pain
CPT/HCPCS: 36415; 76856; 80053; 81001; 83690; 84703; 85025; 87591; 96372; 96374; J0696; J1885; J7030; Z7502; 87110

== ENCOUNTER 2018-10-23 19:50 | Emergency (ER) | payer OTHER ==
[~2018-10-23] VITALS: Ht 152.4 cm; Wt 47.5 kg
[~2018-10-23 19:50] MED LIST changes: -ACET-818; +CEPH-443 PO; +CIPR500T4 PO; +GLIP5TAB13 PO; +IBUP-1542 PO; -IBUP-725; +MTF1000T PO; +PHEN-538 PO
[2018-10-23 19:53] VITALS: Ht 152.4 cm; Wt 47.5 kg
[2018-10-24] MEDS ORDERED: SODIUM CHLORIDE 0.9% 1L BAG IV* STA (02:47)
[2018-10-24] MEDS ORDERED: CEFTRIAXONE 1 GM/50 ML (PMX) 50 ML IVPB ONE (04:00)
--- NOTE | 2018-10-24 05:24 | ERD ---
ER Documentation Chief Complaint Chief Complaint UTI S/S AND STATES HAS BLOOD SUGAR ISSUES HPI This is a 42-year-old female well-known to this hospital complains of burning on urination and urgency frequency. She also had a blood sugar is been difficult control. She denies any fevers or chills. She denies any other current comp laints. The symptoms have gone over the past 2 to 3 days per the patient. Reviewing EMR, patient's been here for similar complaints in the past. ROS All systems reviewed and are negative except as per history of present illness. Medications Home Meds Active Scripts Metformin* (Glucophage*) 1,000 Mg Tablet, 1000 MG PO BID, #20 TAB Prov:HAYDEE GRACE MD 09/16/18 Reported Medications Glipizide* (Glipizide*) 5 Mg Tablet, 5 MG PO AC BREAKFAST, TAB 10/24/18 Discontinued Scripts Phenazopyridine Hcl* (Pyridium*) 200 Mg Tab, 200 MG PO TID for 3 Days, #9 TAB Prov:HAYDEE GRACE MD 09/16/18 Cephalexin* (Keflex*) 500 Mg Capsule, 500 MG PO QID for 7 Days, CAP Prov:HAYDEE GRACE MD 09/16/18 Allergies Allergies: Coded Allergies: No Known Allergy (Unverified , 10/24/18) PMhx/Soc History of Surgery: Yes (4 C section) Anesthesia Reaction: No Hx Neurological Disorder: No Hx Respiratory Disorders: No Hx Cardiac Disorders: No Hx Psychiatric Problems: No Hx Miscellaneous Medical Probl: Yes (pneumonia) Hx Alcohol Use: Yes (socially) Hx Substance Use: Yes (METHAMPETAMINE, marijuana) Hx Tobacco Use: Yes Smoking Status: Current every day smoker Physical Exam Vitals Vital Signs Date Temp Pulse Resp B/P (MAP) Pulse Ox O2 O2 Flow FiO2 Time Delivery Rate 10/24/18 97.8 80 20 106/79 97 Room Air 03:10 (88) 10/23/18 98.8 124 20 151/81 97 19:53 (104) Physical Exam Const: No acute distress Head: Atraumatic Eyes: Normal Conjunctiva ENT: Normal External Ears, Nose and Mouth. Neck: Full range of motion. No meningismus. Resp: Clear to auscultation bilaterally Cardio: Regular rate and rhythm, no murmurs Abd: Soft, non tender, non distended. Normal bowel sounds Skin: No petechiae or rashes Back: No midline or flank tenderness Ext: No cyanosis, or edema Neur: Awake and alert Psych: Normal Mood and Affect Result Diagram: 10/24/18 0329 10/24/18 0329 Results 24 hrs Laboratory Tests Test 10/23/18 19:55 10/24/18 03:15 10/24/18 03:29 Bedside Glucose 288 mg/dL Urine Color YELLOW Urine Clarity CLOUDY Urine pH 6.0 Urine Specific [place] 1.033 Urine Ketones TRACE mg/dL Urine Nitrite POSITIVE mg/dL Urine Bilirubin NEGATIVE mg/dL Urine Urobilinogen NEGATIVE mg/dL Urine Leukocyte Esterase 3+ Juan C/ul Urine Microscopic RBC 82 /HPF Urine Microscopic WBC > 182 /HPF Urine Squamous Epithelial Cells FEW /HPF Urine Bacteria FEW /HPF Urine Mucus FEW /HPF Urine Hemoglobin 2+ mg/dL Urine Glucose 3+ mg/dL Urine Total Protein 1+ mg/dl POC Venous Lactate 1.5 mmol/L White Blood Count 9.9 10^3/ul Red Blood Count 4.14 10^6/ul Hemoglobin 12.3 g/dl Hematocrit 36.0 % Mean Corpuscular Volume 87.0 fl Mean Corpuscular Hemoglobin 29.7 pg Mean Corpuscular 34.2 g/dl Hemoglobin Concent Red Cell Distribution Width 12.5 % Platelet Count 391 10^3/UL Mean Platelet Volume 11.9 fl Immature Granulocytes % 0.300 % Neutrophils % 67.9 % Lymphocytes % 25.5 % Monocytes % 4.5 % Eosinophils % 1.4 % Basophils % 0.4 % Nucleated Red Blood Cells % 0.0 /100WBC Immature Granulocytes # 0.030 10^3/ul Neutrophils # 6.8 10^3/ul Lymphocytes # 2.5 10^3/ul Monocytes # 0.5 10^3/ul Eosinophils # 0.1 10^3/ul Basophils # 0.0 10^3/ul Nucleated Red Blood Cells # 0.0 10^3/ul Prothrombin Time 13.1 Sec Prothrombin Time Ratio 1.0 INR International 0.98 Normalized Ratio Activated Partial Thromboplast 26.0 Sec Time Sodium Level 139 mmol/L Potassium Level 3.6 mmol/L Chloride Level 102 mmol/L Carbon Dioxide Level 27 mmol/L Anion Gap 10 Blood Urea Nitrogen 14 mg/dl Creatinine 0.50 mg/dl Est Glomerular Filtrat > 60 mL/min Rate mL/min Glucose Level 387 mg/dl Calcium Level 9.5 mg/dl Total Bilirubin 0.4 mg/dl Direct Bilirubin 0.00 mg/dl Indirect Bilirubin 0.4 mg/dl Aspartate Amino Transf (AST/SGOT) 17 IU/L Alanine 20 IU/L Aminotransferase (ALT/SGPT) Alkaline Phosphatase 155 IU/L Troponin I < 0.012 ng/ml Total Protein 7.4 g/dl Albumin 4.0 g/dl Globulin 3.40 g/dl Albumin/Globulin Ratio 1.17 Current Medications Medications Dose Sig/Yoselin Start Time Status Last (Trade) Ordered Route PRN Stop Time Admin Dose Reason Admin Sodium 1,430 ml BOLUS OVER 2 10/24/18 DC 10/24/18 Chloride HOURS STAT 02:47 10/24/18 03:42 (NS) IV* 02:49 Ceftriaxone 50 ml @ ONCE ONCE 10/24/18 DC 10/24/18 Sodium 100 mls/hr IVPB 04:00 10/24/18 04:14 04:29 Procedures/MDM EKG: Rate/Rhythm: [Normal Sinus Rhythm] QRS, ST, T-waves: [No changes consistent w/ acute ischemia] Impression: [No evidence of ischemia or arrhythmia] Chest X-ray 1V Interpreted by me: Soft Tissue: No acute abnormalities Bones: No acute abnormalities Mediastinum/Cardiac Silhouette/Lungs: [No acute abnormalities] Medical decision making: This a 42 female has evidence of urinary tract infection. At this point she is clinically stable for outpatient management patient given dose of Rocephin here. Pending culture results. Will be discharged home on ciprofloxacin 500 mg twice daily Departure Diagnosis: Primary Impression: UTI (urinary tract infection) Urinary tract infection type: site unspecified Hematuria presence: without hematuria Qualified Codes: N39.0 - Urinary tract infection, site not specified Condition: JIM Soni Oct 24, 2018 05:24
[2018-10-24 05:58] VITALS: BP 112/87; PULSE 84; RESP 17
== END 2018-10-24 06:53 | disposition home or self-care (01) ==
LOC: E/R 19:50
DX: N39.0 Urinary tract infection, site not specified (principal); F17.210 Nicotine dependence, cigarettes, uncomplicated; Z79.84 Long term (current) use of oral hypoglycemic drugs
CPT/HCPCS: 36415; 71045; 80053; 81001; 82962; 83605; 84484; 85025; 85610; 85730; 87040; 87086; 93005; 96365; J0696; J7030; Z7502